=== PATIENT | male | born 1955 | race Caucasian/White ===

== ENCOUNTER 2020-07-21 16:21 | Inpatient (IN) | payer OTHER, MEDICARE, MEDICAID, SELFPAY ==
--- NOTE | ~2020-07-21 | XR_ITS ---
EXAMINATION: XR ABDOMEN KUB CLINICAL INDICATION: Severe constipation. Concern for obstruction. COMPARISON: None TECHNIQUE: AP view of the abdomen. FINDINGS: There is a moderate volume of scattered stool throughout the colon. Most of the stool is in the right colon. No evidence of impaction. No abnormal dilated bowel loop. The bowel pattern is nonobstructive. No radiopaque urinary calculus. XR/XR KUB IMPRESSION: Moderate volume of stool scattered in colon. No bowel obstruction.
[2020-07-21 16:39] VITALS: BP 141/79; PULSE 96; RESP 18; TEMP 36.4; O2SAT 97; BMI 44.0
--- NOTE | 2020-07-21 16:45 | PC.NURSE ---
pt abraham escudero triage. wakes with verbal stimuli
--- NOTE | 2020-07-21 16:58 | PC.NURSE ---
Calling [facility]. nurse on break. will call back
--- NOTE | 2020-07-21 17:25 | ED_ITS ---
HPI - General Adult General Chief complaint: General Medical Stated complaint: CRISIS EVAL Time Seen by Provider: 07/21/20 20:41 Source: patient and EMS Mode of arrival: EMS Limitations: other (Suspected cognitive impairment) History of Present Illness HPI narrative: [age] year male with past medical history anemia, type 2 diabetes, CHF, hypertension, hyperlipidemia, morbid obesity, peripheral vascular disease, schizophrenia, on a [facility] order for psychiatric medications and on Clozaril presents from a long-term facility for refusal of medications. Onset (ago): hour(s) (Within the hour of arrival) Associated symptoms: denies other symptoms Related Data Allergies Allergy/AdvReac Type Severity Reaction Status Date / Time No Known Allergies Allergy Verified 07/21/20 16:39 Review of Systems Review of Systems: Constitutional: No Fever, No Chills ENT/Mouth: No Ear Pain, No Nasal Congestion, No sore throat Eyes: No Eye Pain, No Swelling, No Redness Cardiovascular: No Chest Pain, No SOB Respiratory: No Cough, No Sputum, No Dyspnea Gastrointestinal: No Nausea, No Vomiting, No Diarrhea, No Hematochezia, No Melena Genitourinary: No Dysuria, No Urinary Frequency, No Hematuria Musculoskeletal: No Myalgias Skin: No Skin Lesions, No rash Neuro: No Weakness, No Numbness, No Paresthesias, No Dizziness, No Headache Psych: Refusal of [facility] orders medications, No Anxiety, no Depression, no SI/HI Heme/Lymph: No Lymphadenopathy Endocrine: No Polyuria, No Polydipsia Yes all other systems are reviewed and are negative PMFSH Past Medical History Attestation statement: The following information was validated with the patient. Source: old records reviewed Medical History Anemia Diabetes Heart failure HTN (hypertension) Hyperlipidemia Morbid obesity Peripheral vascular disease Pneumonia Schizophrenia Social History Social History Alcohol intake: unknown Smoked in Last 30 Days: No Use of substances other than those prescribed or required for medical reasons: Unknown Advance Directives: No Advance Directives Information Provided: Yes Physical Exam Vital Signs: Vital Signs: Last Vital Signs Temp 98.7 F 07/21/20 23:43 Pulse 99 07/21/20 22:27 Resp 16 07/21/20 23:43 BP 120/53 L 07/21/20 23:43 Pulse Ox 94 07/21/20 23:43 Body Mass Index 44.0 Appearance: Alert. Oriented to self. No acute distress. Eyes: Pupils equal, round and reactive to light. ENT: Pharynx normal. Neck: Normal inspection. Neck supple. CVS: Normal heart rate and rhythm. Pulses normal. Respiratory: No respiratory distress. Breath sounds normal. Abdomen: Soft and nontender. Morbidly obese. Skin: Skin warm and dry. Normal skin color. Normal skin turgor. Extremities: Positive bilateral lower extremity edema, bilateral knee abrasions scabbed over Neuro: No motor deficit. No sensory deficit. Course Course Course Narrative: 65-year-old male with past medical history of anemia, diabetes, CHF, hypertension, hyperlipidemia, morbid obesity, per vascular disease, schizophrenia on a [facility] order for his psychiatric medications. He was sent to this facility for refusal of taking his meds. Multiple calls out to [facility] facility by RN remain on answered. Patient is a limited historian, is able to answer yes or no questions. Discussion with pharmacist regarding Clozaril, once patient is verified to be on the Clozaril registration psychiatry will send medications. 8:42 p.m. patient still declining p.o. Clozaril. Discussion with pharmacy as well as attending MD, plan is for 20 mg of olanzapine IM. We are all in agreement with this plan. RN discussed with long-term facility, they are unwilling to accept this patient back until he has a psychiatric consult. It also appears that patient d oes not have a backup plan with IM medications for refusal of p.o. medications. Psych consult is pending. Physician observation initiated. 2:21 a.m. sign out to Dr. Luu. Medical Decision Making Differential Diagnosis Differential Diagnosis: Refusal of [facility] order medications Medical Records Medical records reviewed: Yes I reviewed the patient's medical records. Lab Data Lab results reviewed: Yes I reviewed the patient's lab results. Result diagrams: 07/21/20 20:24 07/21/20 20:24 Labs: Lab Results 07/21/20 07/21/20 Range/Units 20:24 20:24 WBC 10.6 (4.8-10.8) X10*3/uL RBC 4.48 L (4.60-5.80) X10*6/uL Hgb 11.5 L (14.0-18.0) g/dl Hct 36.1 L (42-52) % MCV 80.6 (80-98) fL MCH 25.7 L (27.0-33.0) pg MCHC 31.9 (31.0-36.0) g/dl RDW 15.3 (11.0-16.0) % Plt Count 296 (160-400) X10*3/uL MPV 9.9 (9.4-12.4) fL Immature Gran % (Auto) 0.4 (0.0-0.4) % Neut % (Auto) 63.8 (45-73) % Lymph % (Auto) 23.8 (20-40) % [place] % (Auto) 9.3 (2-11) % Eos % (Auto) 2.4 (0-4) % Baso % (Auto) 0.3 (0-2) % Lymph # (Auto) 2.5 (1.2-4.9) X10*3/uL [place] # (Auto) 1.0 (0.1-1.2) X10*3/uL Eos # (Auto) 0.3 (0.0-0.4) X10*3/uL Baso # (Auto) 0.0 (0.0-0.2) X10*3/uL Abs Immat Gran (auto) 0.04 H (0.00-0.03) X10*3/uL Absolute Neuts (auto) 6.7 (2.0-8.3) X10*3/uL Absolute Nucleated RBC 0.000 (0.0-0.012) X10*3/uL Nucleated RBC % (auto) 0.0 (0.0-0.2) /100WBC Sodium 143 (135-145) mmol/L Potassium 3.6 (3.3-5.1) mmol/L Chloride 103 (96-108) mmol/L Carbon Dioxide 29 (22-29) mmol/L Anion Gap 15 (12-20) BUN 21 H (9-16) mg/dL Creatinine 0.93 (0.5-1.4) mg/dL Estim Creat Clear Calc 151.5 Estimated GFR > 60 Random Glucose 145 H (60-115) mg/dL Calcium 8.7 (8.4-10.2) mg/dL
--- NOTE | 2020-07-21 17:44 | PC.NURSE ---
second call to glen. leoone answering on E1.
--- NOTE | 2020-07-21 17:47 | PC.NURSE ---
SNF paperwork states pt takes reg diet with thin liquids. pt states he can't swallow food. unable to reach RN at [facility].
[2020-07-21 18:00] VITALS: BP 144/72; PULSE 105; RESP 20; TEMP 36.3; O2SAT 99
--- NOTE | 2020-07-21 18:28 | PC.NURSE ---
pt eating and drinking w/o diff.
[2020-07-21 20:00] VITALS: BP 122/68; PULSE 109; RESP 20; TEMP 36.4; O2SAT 96
--- NOTE | 2020-07-21 20:19 | PC.NURSE ---
pT IS REFUSING CLOZARIL. STATES HIS MOUTH IS TOO DRY. THIS RN EXPLAINING THAT PT IS MAKE UP EXCUSES, THAT I WITNESSED HIM DRINK MILK AND EAT DINNER. PT CONTINUES TO REFUSE. THIS RN REMINDING PATIENT THAT AFTER HE TAKES MEDS HE'LL RETURN TO FACILITY. STATES HE'LL STAY HERE AND ROT
[2020-07-21 20:30] LABS: MANUAL DIFF FLAG NO
[2020-07-21 20:37] LABS: Basophils Percent Auto 0.3 % (0-2); Eosinophils Absolute Auto 0.3 X10*3/uL (0.0-0.4); Eosinophils Percent Auto 2.4 % (0-4); Hematocrit 36.1 % (42-52); Hemoglobin 11.5 g/dl (14.0-18.0); Imm Gran Abs Auto 0.04 X10*3/uL (0.00-0.03); Imm Gran Pct Auto 0.4 % (0.0-0.4); Lymphocytes Absolute Auto 2.5 X10*3/uL (1.2-4.9); Lymphocytes Percent Auto 23.8 % (20-40); Mean Corpuscular HGB Conc 31.9 g/dl (31.0-36.0); Mean Corpuscular Hemoglobin 25.7 pg (27.0-33.0); Mean Corpuscular Volume 80.6 fL (80-98); Mean Platelet Volume 9.9 fL (9.4-12.4); Monocytes Percent Auto 9.3 % (2-11); Neutrophils Absolute Auto 6.7 X10*3/uL (2.0-8.3); Neutrophils Percent Auto 63.8 % (45-73); Platelet Count 296 X10*3/uL (160-400); Red Blood Count 4.48 X10*6/uL (4.60-5.80); Red Cell Distribution Width 15.3 % (11.0-16.0); White Blood Count 10.6 X10*3/uL (4.8-10.8)
[2020-07-21 21:10] VITALS: BP 121/70; RESP 16; TEMP 36.6; O2SAT 97
[2020-07-21 21:18] LABS: Anion Gap 15 (12-20); Blood Urea Nitrogen 21 mg/dL (9-16); Calcium 8.7 mg/dL (8.4-10.2); Carbon Dioxide 29 mmol/L (22-29); Chloride 103 mmol/L (96-108); Creatinine Clr Calc Pharmacy 151.5; Estimated Glomerular Filt Rate > 60; Glucose Random 145 mg/dL (60-115); Potassium 3.6 mmol/L (3.3-5.1); Sodium 143 mmol/L (135-145)
[2020-07-21] MEDS: OLANZapine 10 MG VIAL IM ×2 (22:09)
[2020-07-21 22:27] VITALS: BP 120/67; PULSE 99; RESP 18; TEMP 36.6; O2SAT 96
--- NOTE | 2020-07-21 22:28 | PC.NURSE ---
OLAZEPINE IM WAS ADMINISTERED IN [facility] OF CLOZARILE 600MG PO. PT REFUSED PO MEDS AND OLAZAPINE WAS GIVEN A SUSTITUTE FOR THIS ROUTINE MEDICATION. PT WAS BEHAVIORALLY CONTROLLED AND WHEN GIVEN ONE LAST CHANCE TO CHOOSE PO MEDS VS IM, REQUESTED THE IM.
--- NOTE | 2020-07-21 22:34 | PC.NURSE ---
This RN calling Talat. noone answering again.
--- NOTE | 2020-07-21 22:56 | PC.NURSE ---
Finally speaking with MEGHAN Blum at [facility]. Pt's brief is still dry. Is awake, following commands. Having ice. Viktoria states that [facility] is under the impression that patient was sectioned to the ED and therefore cannot return until a hydro generation supervisor is consulted in the AM.
[2020-07-21 23:43] VITALS: BP 120/53; RESP 16; TEMP 37.1; O2SAT 94
--- NOTE | 2020-07-22 | ECG_ITS ---
Test Reason : PSYCHMEDS Blood Pressure : / mmHG Vent. Rate : 095 BPM Atrial Rate : 095 BPM P-R Int : 138 ms QRS Dur : 086 ms QT Int : 360 ms P-R-T Axes : 084 023 094 degrees QTc Int : 452 ms Normal sinus rhythm Inferior infarct (cited on or before 17-APR-2017) Abnormal ECG When compared with ECG of 17-APR-2017 16:41, No significant change was found Referred By: Hannah Cade Electronically Signed By:GIOVANI DC MD
[2020-07-22 08:48] VITALS: BP 150/81; PULSE 100; RESP 18; O2SAT 98
--- NOTE | 2020-07-22 08:51 | PC.NURSE ---
Pt sleeping, awakes easily. Vague with flat affect. Vitals stable. Refused breakfast. Confirms not taking meds but does not offer an explanation. Denies SI or HI. Made aware that pt is awaiting psych consult this morning for medication management. Pt is alert and oriented to self,place and year. Pt is calm and cooperative.
[2020-07-22 11:43] VITALS: BP 160/73; PULSE 89; RESP 17; TEMP 36.6; O2SAT 96
--- NOTE | 2020-07-22 11:49 | PC.NURSE ---
M5 called and made aware of psych consult needed. Pt remains asleep at this time but easily awakes.
--- NOTE | 2020-07-22 14:40 | PM.PSYCN ---
History of Present Illness Date of Service: 07/22/2020 Chief Complaint: CRISIS EVAL Reason for Consult: decompensation Discussed with referring provider: Yes Sources of Information: patient interviewed and chart reviewed Additional Sources of Information: [facility] [facility]- Malina (rn case manager) [phone] Duc Zambrano- HCP/Brother [phone] HPI Narrative: Mr. Zambrano is a 65 year-old male with hx of schizoaffective disorder. He was brought via EMS from [facility] where he was recently admitted for short term rehab due to pt presenting increasingly more combative and refusing antipsychotic- clozaril which is court mandated per Jesse's order (expires on 10/2020 on pt's chart). Most information is gathered from collateral sources including his brother Duc (HCP) and staff at [facility] where he has resided for the past 4 years. Mr. Zambrano is laying in bed, significant bilateral involuntary movements of upper extremities as well as perioral movements are evident. Otherwise, Pt appears somewhat anxious and guarded. Mr. Zambrano reports that he is not sure why is was brought to the hospital. When asked about changes in behaviors and declining court mandated medication- clozaril, pt confirms that he does not want to take. He denies any side effects. However, pt is unable to explain as to why he, abruptly decided to stop it. When asked about AH/VH, pt denies. However, pt presents with significant delayed response rate, scanning room and poor attention which suggest that he is in fact internally preoccupied. He denies SI/HI. He reports sleeping and eating well. He does report constipation but unable to state when was his last BM. He does report some abdominal discomfort. Per brother, Duc, pt has been fairly stable psychiatrically speaking up until last April- May. Duc reports that pt has presented as increasingly more confused, withdrawn. He also has had multiple falls. Involuntary movements have increased recently as well. Duc reports pt has been on clozaril for several years. Brother also suspects that reason for declining clozaril is because AH are telling him not to take it. Brother reports that pt usually may not report AH, but he has disclosed to his brother that this in part is reason for refusing clozaril. Pt is currently on Fernandez that includes as alternative antipsychotics- seroquel and risperidone. Note that there is no back up IM in the event of pt refusing clozaril. However, brother reports that pt may take medication if given with apple sauce and some encouragement to take it while eating meals. Staff from [facility]- Malina (rn case manager) reports that pt has been presenting increasingly more confused, agitated at times for the past 2-3 weeks. He has been in ED at [facility] in the past two weeks as they were concerned about underlying medical conditions affecting his mental status. Malina reports that is not usual for pt to decline medications, only usually as AH increase. As of today, it has been about 5 days that pt has decline clozaril. In the ED, pt continues to decline taking clozaril. Past Psychiatric History: Inpatient: [facility]- more than 7 years ago. OP: [facility] Pt currently resides in [facility] for past 4 years. Medication trials: clozaril, seroquel, risperidone. Medical Evaluation Reviewed: Yes Review of Systems Gastrointestinal: Reports abdominal pain and Reports constipation [facility] Medical History Anemia Diabetes Heart failure HTN (hypertension) Hyperlipidemia Morbid obesity Peripheral vascular disease Pneumonia Schizophrenia Diagnostics Vital Signs (24Hr): Vital Signs - 24 hr 07/21/20 16:39 07/21/20 18:00 07/21/20 20:00 Temperature 97.6 F 97.4 F 97.6 F Pulse Rate 96 105 H 109 H Respiratory Rate 18 20 20 Blood Pressure 141/79 H 144/72 H 122/68 Pulse Oximetry 97 99 96 07/21/20 21:10 07/21/20 22:27 07/21/20 23:43 Temperature 97.9 F 97.8 F 98.7 F Pulse Rate 99 Respiratory Rate 16 18 16 Blood Pressure 121/70 120/67 120/53 L Pulse Oximetry 97 96 94 07/22/20 08:48 07/22/20 11:43 Temperature 97.8 F Pulse Rate 100 89 Respiratory Rate 18 17 Blood Pressure 150/81 H 160/73 H Pulse Oximetry 98 96 Body Mass Index 44.0 Labs Results: 07/21/20 20:24 07/21/20 20:24 Labs: Laboratory Results - last 48 hr 07/21/20 07/21/20 20:24 20:24 WBC 10.6 RBC 4.48 L Hgb 11.5 L Hct 36.1 L MCV 80.6 MCH 25.7 L MCHC 31.9 RDW 15.3 Plt Count 296 MPV 9.9 Immature Gran % (Auto) 0.4 Neut % (Auto) 63.8 Lymph % (Auto) 23.8 [place] % (Auto) 9.3 Eos % (Auto) 2.4 Baso % (Auto) 0.3 Lymph # (Auto) 2.5 [place] # (Auto) 1.0 Eos # (Auto) 0.3 Baso # (Auto) 0.0 Abs Immat Gran (auto) 0.04 H Absolute Neuts (auto) 6.7 Absolute Nucleated RBC 0.000 Nucleated RBC % (auto) 0.0 Sodium 143 Potassium 3.6 Chloride 103 Carbon Dioxide 29 Anion Gap 15 BUN 21 H Creatinine 0.93 Estim Creat Clear Calc 151.5 Estimated GFR > 60 Random Glucose 145 H Calcium 8.7 Mental Status Exam Mental Status Exam Narrative: Appearance: MO male, disheveled, involuntary upper extremity movements, restless Behavior: restless, guarded Psychomotor: significant involuntary bilateral upper extremity movement Speech: mumbles at times, significant delayed response rate, soft tone, minimally spontaneous TP: single work answers TC:poverty of thought Mood: okay Affect:restless, anxious SI:denies HI:denies AH/VH:appears internally preoccupied Delusions:guarded Insight/judgment:impaired Memory/cog: alert, oriented to month, year not to situation nor place. Medications Allergies Allergies Allergy/AdvReac Type Severity Reaction Status Date / Time No Known Allergies Allergy Verified 07/21/20 16:39 Assessment & Plan Assessment & Plan (1) Schizophrenia, paranoid, subchronic with acute exacerbation: Status: Acute Code(s): F20.0 - Paranoid schizophrenia Recommendations: 1. Pt may benefit from inpatient psychiatric level of care to re-start and titrate up clozaril- monitoring potential side effects such as orthostatic HOTN, constipation 2. Pt currently declining oral clozaril- on fernandez that does not include back up IM. Other alternative medication on current fernandez include seroquel and risperidone. Greater than 50% of the session was spent on counseling and/or coordination of care
--- NOTE | 2020-07-22 14:50 | PC.NURSE ---
Psych down to evaluate pt. Bladder scan 116ml as pt hasnt voided, after bladder scan pt incontinent of large amt of urine on floor. Refusing lunch.
--- NOTE | 2020-07-22 16:41 | PC.NURSE ---
Pt not eating meals offered despite much encouragement, this RN offering fluids and pt accepted.
[2020-07-22 17:08] VITALS: BP 141/75; PULSE 92; RESP 20; TEMP 36.9; O2SAT 97
--- NOTE | 2020-07-22 18:11 | PC.NURSE ---
Addendum entered by Kavita Khan 07/22/20 18:12: Crisis order placed Original Note: Per psych pt reports constipation, to and from xray for KUB. ?admission for titration back on Clozaril.
--- NOTE | 2020-07-22 18:39 | PC.NURSE ---
faxed to [facility], this RN calling at this time
--- NOTE | 2020-07-22 18:49 | PC.NURSE ---
Sinus Rhythm noted on monitor, tigerconnect to Dr Doss for update
[2020-07-23] VITALS (8 sets, daily range): BP systolic 138; BP diastolic 72; PULSE 89–92; RESP 16–20; TEMP 36.3–37.4; O2SAT 95
[2020-07-23 09:47] LABS: COVID-19 Test Negative (Negative); IDNOW Serial# 9DD0AD1C
--- NOTE | 2020-07-23 10:46 | PC.NURSE ---
pt alert and oreinted, calm and cooperative. seen by N this morning to discuss possible plan for disposition.
--- NOTE | 2020-07-23 11:18 | MHC.CARE ---
Patient's evaluation completed by CARE team. Inpatient psychiatric treatment is recommended.
--- NOTE | 2020-07-23 12:23 | PC.NURSE ---
PT SLEEPING, EASILY ROUSED. REFUSED VS AT THIS TIME. APPEARS COMFORTABLE, RESP EVEN, NONLABOURED.
--- NOTE | 2020-07-23 15:18 | PC.NURSE ---
PT HAS NOT EATEN BREAKFAST OR LUNCH TODAY. HE DENIES ANY NAUSEA, PAIN. PRESENTS WITH A FLAT AFFECT, SLEEPING MOST OF THE DAY TODAY. WILL REATTEMPT TO APPROACH WITH DINNER, PT AGREES WITH PLAN AND UNDERSTANDS IMPORTANCE OF NOURISHMENT
--- NOTE | 2020-07-23 16:43 | PC.NURSE ---
Addendum entered by Tatiana Scales RN 07/23/20 16:49: [phone] - NATHALIE IS GIFTED PROGRAM TEACHER FOR Andel. [phone] MARTHA BROTHER Original Note: PER HCP BROTHER, PT IS Andel UVALDE, [employer]ACE [employer] FOR ALL INCLUSIVE CARE FOR ELDERLY.
--- NOTE | 2020-07-23 17:35 | MHC.SL.SWA ---
Speech Pathologist Impression: Risk of Aspiration Due to: Dysphasia Diet Status: Downgrade Liquid Consistency and Strategies for Safe Swallow: Liquid Intake Recommendation: Thin Liquid Intake Strategies: Unrestricted Solid Food Consistency: Dietary Recommendations: Additional Modifications to Solid Foods: MATERIAL CUTTER will re-evaluate in the morning to determine safe solid consistency recommendation, as pt refused today. Pt stated that he would participate in the morning. Oral Medication Intake: Compensatory Strategies and Precautions to be Taken for Safe Swallow: Sitting Upright (90 deg) Supervision While Eating and Drinking for Safe Swallow: Intermittent Supervision Foods to Avoid: Swallowing Recommended Treatments: Recommendation for Speech: Inpatient Speech Therapy Comment: Frequency/Duration: Date Range for Service Req: Timeline to reassess: Radiopharmacist Clinican/Clinical Fellow: Yes: Ashley Spears M.A., [facility]-MATERIAL CUTTER Supervisory Statement: I have reviewed and agree with the student/clinical fellow's documentation: Speech Language Pathologist:
--- NOTE | 2020-07-23 17:42 | PC.NURSE ---
SPEECH PATHOLOGY AT BEDSIDE, PT TOELRATED SEVERAL ORANGE JUICES. PT REPORTS HEARING VOICES THAT ARE TELLING HIM TO DRINK FLUIDS. PA MARCOS MADE AWARE OF EVAL & PT CONTINUATION TO REFUSE MEALS. MEDS ENTERED, CLOZARIL TO START AT 25MG SINCE HE HAS NOT TAKEN IT FOR SEVERAL DAYS NOW.
[2020-07-23] MEDS: cloZAPine 25 MG TABLET PO (18:36)
[2020-07-23] MEDS: Tamsulosin HCL 0.4 MG CAPSULE PO (18:37)
[2020-07-23] MEDS: Magnesium Oxide 400 MG TABLET 800 MG PO (18:37)
[2020-07-23] MEDS: Metoprolol Succinate ER 25 MG TAB.ER.24H 75 MG PO (18:37)
[2020-07-23] MEDS: Finasteride 5 MG TABLET PO (18:38)
[2020-07-23] MEDS: Clopidogrel Bisulfate 75 MG TABLET PO (18:38)
[2020-07-23] MEDS: lisinopriL 2.5 MG TABLET PO (18:38)
--- NOTE | 2020-07-23 19:32 | PC.NURSE ---
LINENS CHANGED, PT BATHED IN BED. TOOK ALL MEDS WITH ORANGE JUICE, DRANK AN ICED WATER. PT MAKING EYE CONTACT, RESPONDING TO YES OR NO QUESTIONS. CALM & COOPERATIVE.
--- NOTE | 2020-07-23 20:46 | PC.NURSE ---
ATTEMPTED TO TRIAL AMBULATION WITH THIS PT, HE REFUSED TO GET OOB A FEW TIMES I'M GONNA FALL, I THINK I'M JUST GONNA FALL . PT REPOSITIONS SELF IN BED WITH NO ISSUE. AFTER SEVERAL ATTEMPTS, PT AGREED TO STAND. HE STOOD HOLDING ONTO THE CART IN THE ROOM, ABLE TO BEAR HIS OWN WT. UPDATED M5.
--- NOTE | 2020-07-23 22:47 | MHC.CARE ---
CARE team unable to locate pt's belongings in the ED prior to M5 admission. No belongings sheet found in pt's physical chart.
--- NOTE | 2020-07-24 02:15 | PC.ADMIT ---
Juan is 65 years old, calm and cooperative. He denies any substance use for many, many years . He denies SI and HI. He is oriented to person only and needs reinforcement to day, time and place. He had a fall prior to admission; as a result his right knee has an abrasion; his right foot, 1st and 2nd toes have bruising and scabs, 2nd toe has long curved toenail. His left foot, 1st and 2nd toes have bruising and scabs. He is fearful of falls. fearful to walk. He can stand and pivot. Tries to bear hug staff when he stands. Groin and testes are red. difficult to asses d/t size. He has no clothing and needs his own brought in. He is a very large man and hospital bariatric johnnys are too small, and he needs a bariatric wheelchair and gait belt. We need a copy of his [facility] Order. Juan is on 1:1 observation at this time.
--- NOTE | 2020-07-24 04:49 | PC.NURSE ---
0145: Pt sat up on the side of his bed then proceeded to lower himself to the floor on his knees. Redirected to get back into bed to which pt complied. Pt reopened a scabbed over area on his knee.
[2020-07-24 06:00] VITALS: BP 96/55; PULSE 87; RESP 20; TEMP 36.6; O2SAT 93
[2020-07-24 06:36] LABS: Glucose, Whole Blood 116 mg/dL (60-115)
[2020-07-24 08:28] LABS: MANUAL DIFF FLAG NO
[2020-07-24 08:32] LABS: Basophils Percent Auto 0.3 % (0-2); Eosinophils Absolute Auto 0.2 X10*3/uL (0.0-0.4); Eosinophils Percent Auto 1.9 % (0-4); Hematocrit 36.5 % (42-52); Hemoglobin 11.5 g/dl (14.0-18.0); Imm Gran Abs Auto 0.02 X10*3/uL (0.00-0.03); Imm Gran Pct Auto 0.2 % (0.0-0.4); Lymphocytes Absolute Auto 1.9 X10*3/uL (1.2-4.9); Lymphocytes Percent Auto 20.6 % (20-40); Mean Corpuscular HGB Conc 31.5 g/dl (31.0-36.0); Mean Corpuscular Hemoglobin 25.3 pg (27.0-33.0); Mean Corpuscular Volume 80.4 fL (80-98); Mean Platelet Volume 9.7 fL (9.4-12.4); Monocytes Absolute Auto 0.8 X10*3/uL (0.1-1.2); Monocytes Percent Auto 8.8 % (2-11); Neutrophils Absolute Auto 6.4 X10*3/uL (2.0-8.3); Neutrophils Percent Auto 68.2 % (45-73); Platelet Count 306 X10*3/uL (160-400); Red Blood Count 4.54 X10*6/uL (4.60-5.80); Red Cell Distribution Width 15.1 % (11.0-16.0); White Blood Count 9.4 X10*3/uL (4.8-10.8)
[2020-07-24 09:00] LABS: Alanine Aminotransferase 21 U/L (0-40); Albumin Level 3.3 g/dL (3.5-5.0); Alkaline Phosphatase 60 U/L (39-117); Anion Gap 13 (12-20); Aspartate Amino Transferase 24 U/L (5-37); Bilirubin Direct 0.3 mg/dL (0.0-0.5); Bilirubin Total 0.8 mg/dL (0.0-1.0); Blood Urea Nitrogen 10 mg/dL (9-16); Calcium 8.7 mg/dL (8.4-10.2); Carbon Dioxide 28 mmol/L (22-29); Chloride 103 mmol/L (96-108); Cholesterol 157 mg/dL; Creatinine Clr Calc Pharmacy 190.4; Estimated Glomerular Filt Rate > 60; Glucose Fasting 119 mg/dL (60-99); HDL Cholesterol 31 mg/dL; LDL Cholesterol Calculated 106 mg/dl; Magnesium 1.8 mg/dL (1.6-2.6); Potassium 3.9 mmol/L (3.3-5.1); Sodium 140 mmol/L (135-145); Total Protein 5.9 g/dL (6.5-8.0); Triglycerides 103 mg/dL
[2020-07-24 09:04] LABS: Estimated Average Glucose 151 mg/dL; Hemoglobin A1c % 6.9 %
[2020-07-24 09:32] LABS: Folate 7.1 ng/mL (> or = 4.0); Vitamin B12 376 pg/mL (200-900)
[2020-07-24 09:49] VITALS: BP 109/60; PULSE 103; RESP 18; TEMP 36.9; O2SAT 95
[2020-07-24 09:55] VITALS: BP 109/60; PULSE 103
[2020-07-24] MEDS: Magnesium Oxide 400 MG TABLET 800 MG PO (09:55)
[2020-07-24] MEDS: lisinopriL 2.5 MG TABLET PO (09:55)
[2020-07-24 09:56] VITALS: BP 109/60; PULSE 103
[2020-07-24] MEDS: Metoprolol Succinate ER 25 MG TAB.ER.24H 75 MG PO (09:56)
[2020-07-24] MEDS: metFORMIN HCl 1,000 MG TABLET 1000 MG PO ×2 (09:57→15:55)
[2020-07-24] MEDS: Acetaminophen 325 MG TABLET 650 MG PO (09:57)
[2020-07-24] MEDS: Clopidogrel Bisulfate 75 MG TABLET PO (09:58)
[2020-07-24] MEDS: Furosemide 40 MG TABLET PO (09:58)
[2020-07-24] MEDS: Omeprazole 20 MG CAPSULE.DR PO (09:58)
[2020-07-24] MEDS: Finasteride 5 MG TABLET PO (09:58)
[2020-07-24] MEDS: Tamsulosin HCL 0.4 MG CAPSULE PO (09:58)
--- NOTE | 2020-07-24 11:34 | MHC.SL.SWA ---
Speech Pathologist Impression: Dysphasia Diet Status: Upgrade Liquid Consistency and Strategies for Safe Swallow: Liquid Intake Recommendation: Thin Liquid Intake Strategies: Unrestricted Solid Food Consistency: Dietary Recommendations: Regular Additional Modifications to Solid Foods: Recommend food with sauce/gravy to ease mastication. Oral Medication Intake: Whole with Liquid Compensatory Strategies and Precautions to be Taken for Safe Swallow: Sitting Upright (90 deg) Small Bites and Sips Alternate Liquids/Solids Rate of Ingestion Change Supervision While Eating and Drinking for Safe Swallow: Intermittent Supervision Comment: Patient passed bedside dysphagia evaluation. Further ST intervention no longer warranted. Please re-refer if there are any changes or if [employer] can be of further assistance. Soaking Room Operator Clinican/Clinical Fellow: No Supervisory Statement: I have reviewed and agree with the student/clinical fellow's documentation: N/A Speech Language Pathologist: Aliza Mujica M.A., [facility]-[employer]
--- NOTE | 2020-07-24 13:06 | MHC.SLORD ---
Speech Language Pathology Order Status: Bedside Dysphagia Evaluation 07/23/20 reviewed and signed by supervising clinician Aliza Mujica M.A., CCC-DIAGRAMMER.
[2020-07-24] MEDS: Loperamide HCl 2 MG CAPSULE PO (15:54)
[2020-07-24] MEDS: Furosemide 20 MG TABLET PO (15:55)
[2020-07-24 16:17] LABS: Glucose, Whole Blood 105 mg/dL (60-115)
--- NOTE | 2020-07-24 18:32 | P.HPPS_ITS ---
HPI Chief Complaint: psychosis Sources of Information: patient interviewed, chart reviewed and crisis/core team assessment reviewed HPI Subjective Notes: Billings Order and Conditional Voluntary Guardianship: Yes Narrative: Mr. Zambrano is a 65 year-old male with hx of schizoaffective disorder. He was brought via EMS from [facility] where he was recently admitted for short term rehab due to pt presenting increasingly more combative and refusing antipsychotic- clozaril which is court mandated per Jesse's order (expires on 10/2020 on pt's chart). Most information is gathered from collateral sources including his brother Duc (HCP) and staff at [facility] where he has resided for the past 4 years. Mr. Zambrano is laying in bed, significant bilateral involuntary movements of upper extremities as well as perioral movements are evident. Otherwise, Pt appears somewhat anxious and guarded. Mr. Zambrano reports that he is not sure why is was brought to the hospital. When asked about changes in behaviors and declining court mandated medication- clozaril, pt confirms that he does not want to take. He denies any side effects. However, pt is unable to explain as to why he, abruptly decided to stop it. Today, pt does report hearing voices telling him to hurt himself. He also reports that voices are telling him to exercise, go swimming . Pt presents with significant delayed response rate, scanning room and poor attention which suggest that he is in fact internally preoccupied. He denies SI/HI. He reports sleeping and eating well. He had reported constipation, had KUB in ED- no obstruction. He did have loose stools in unit. Per brother, Duc, pt has been fairly stable psychiatrically speaking up until last April- May. Duc reports that pt has presented as increasingly more confused, withdrawn. He also has had multiple falls. Involuntary movements have increased recently as well. Duc reports pt has been on clozaril for several years. Brother also suspects that reason for declining clozaril is because AH a re telling him not to take it. Brother reports that pt usually may not report AH, but he has disclosed to his brother that this in part is reason for refusing clozaril. Pt is currently on Billings that includes as alternative antipsychotics- seroquel and risperidone. Note that there is no back up IM in the event of pt refusing clozaril. However, brother reports that pt may take medication if given with apple sauce and some encouragement to take it while eating meals. Staff from [facility]- Malina (case supervisor) reports that pt has been presenting increasingly more confused, agitated at times for the past 2-3 weeks. He has been in ED at [facility] two in the past two weeks as they were concerned about underlying medical conditions affecting his mental status. Malina reports that is not usual for pt to decline medications, only usually as AH increase. Past Psychiatric History: Inpatient: [facility]- more than 7 years ago. OP: [facility] Pt currently resides in [facility] for past 4 years. Medication trials: clozaril, seroquel, risperidone. Medical Evaluation Reviewed: Yes [facility] Medical History (Updated 07/25/20 @ 13:15 by Hannah Cade) Anemia Diabetes Heart failure HTN (hypertension) Hyperlipidemia Morbid obesity Peripheral vascular disease Pneumonia Schizophrenia Diagnostics Vital Signs (24Hr): Vital Signs - 24 hr 07/23/20 18:35 07/23/20 18:37 07/23/20 18:38 Temperature 97.3 F Pulse Rate 92 89 89 Respiratory Rate 18 Blood Pressure 138/72 138/72 138/72 Pulse Oximetry 95 07/24/20 06:00 07/24/20 09:49 07/24/20 09:55 Temperature 97.8 F 98.4 F Pulse Rate 87 103 H 103 H Respiratory Rate 20 18 Blood Pressure 96/55 L 109/60 109/60 Pulse Oximetry 93 95 07/24/20 09:56 Temperature Pulse Rate 103 H Respiratory Rate Blood Pressure 109/60 Pulse Oximetry Body Mass Index 44.0 Labs Results: 07/24/20 08:06 07/24/20 08:06 Labs: Laboratory Results - last 48 hr 07/23/20 07/24/20 07/24/20 09:28 06:30 08:06 WBC 9.4 RBC 4.54 L Hgb 11.5 L Hct 36.5 L MCV 80.4 MCH 25.3 L MCHC 31.5 RDW 15.1 Plt Count 306 MPV 9.7 Immature Gran % (Auto) 0.2 Neut % (Auto) 68.2 Lymph % (Auto) 20.6 Norton % (Auto) 8.8 Eos % (Auto) 1.9 Baso % (Auto) 0.3 Lymph # (Auto) 1.9 Norton # (Auto) 0.8 Eos # (Auto) 0.2 Baso # (Auto) 0.0 Abs Immat Gran (auto) 0.02 Absolute Neuts (auto) 6.4 Absolute Nucleated RBC 0.000 Nucleated RBC % (auto) 0.0 Sodium Potassium Chloride Carbon Dioxide Anion Gap BUN Creatinine Estim Creat Clear Calc Estimated GFR POC Glucose 116 H Fasting Glucose Estimat Average Glucose Hemoglobin A1c % Calcium Magnesium Total Bilirubin Direct Bilirubin AST ALT Alkaline Phosphatase Total Protein Albumin Triglycerides Cholesterol LDL Cholesterol, Calc HDL Cholesterol Vitamin B12 Folate COVID-19 (DEONTE) Negative COVID-19 Clin Com See Note 07/24/20 07/24/20 07/24/20 08:06 08:06 08:06 WBC RBC Hgb Hct MCV MCH MCHC RDW Plt Count MPV Immature Gran % (Auto) Neut % (Auto) Lymph % (Auto) Norton % (Auto) Eos % (Auto) Baso % (Auto) Lymph # (Auto) Norton # (Auto) Eos # (Auto) Baso # (Auto) Abs Immat Gran (auto) Absolute Neuts (auto) Absolute Nucleated RBC Nucleated RBC % (auto) Sodium 140 Potassium 3.9 Chloride 103 Carbon Dioxide 28 Anion Gap 13 BUN 10 D Creatinine 0.74 Estim Creat Clear Calc 190.4 Estimated GFR > 60 POC Glucose Fasting Glucose 119 H Estimat Average Glucose 151 Hemoglobin A1c % 6.9 Calcium 8.7 Magnesium 1.8 Total Bilirubin 0.8 Direct Bilirubin 0.3 AST 24 ALT 21 Alkaline Phosphatase 60 Total Protein 5.9 L Albumin 3.3 L Triglycerides 103 Cholesterol 157 LDL Cholesterol, Calc 106 HDL Cholesterol 31 Vitamin B12 376 Folate 7.1 COVID-19 (DEONTE) COVID-19 [employer] Com 07/24/20 16:09 WBC RBC Hgb Hct MCV MCH MCHC RDW Plt Count MPV Immature Gran % (Auto) Neut % (Auto) Lymph % (Auto) Norton % (Auto) Eos % (Auto) Baso % (Auto) Lymph # (Auto) Norton # (Auto) Eos # (Auto) Baso # (Auto) Abs Immat Gran (auto) Absolute Neuts (auto) Absolute Nucleated RBC Nucleated RBC % (auto) Sodium Potassium Chloride Carbon Dioxide Anion Gap BUN Creatinine Estim Creat Clear Calc Estimated GFR POC Glucose 105 Fasting Glucose Estimat Average Glucose Hemoglobin A1c % Calcium Magnesium Total Bilirubin Direct Bilirubin AST ALT Alkaline Phosphatase Total Protein Albumin Triglycerides Cholesterol LDL Cholesterol, Calc HDL Cholesterol Vitamin B12 Folate COVID-19 (DEONTE) COVID-19 Clin Com Imaging Radiology Impressions: ITS Impressions KUB X-Ray 07/22/20 17:13 IMPRESSION: Moderate volume of stool scattered in colon. No bowel obstruction. Meds/Allergies Meds Home Medications Acetaminophen (Acetaminophen 325 Mg Tablet) 650 mg PO Q6H PRN PRN Reason: Headache/Pain Mild Scale (1-3) Last Admin: 07/24/20 09:57 Dose: 650 mg Documented by: Al Hydroxide/Mg Hydroxide (Magnesium Hydrox/Alum Hydrox 30 Ml Oral.Susp) 30 ml PO Q6H PRN PRN Reason: Heartburn/Nausea Aspirin (Aspirin Enteric Coated 81 Mg Tablet.) 81 mg PO DAILY [facility] Last Admin: 07/25/20 09:02 Dose: 81 mg Documented by: Atorvastatin Calcium (Atorvastatin Calcium 80 Mg Tablet) 80 mg PO BEDTIME [facility] Last Admin: 07/24/20 23:44 Dose: Not Given Documented by: Clopidogrel Bisulfate (Clopidogrel Bisulfate 75 Mg Tablet) 75 mg PO DAILY [facility] Last Admin: 07/25/20 09:02 Dose: 75 mg Documented by: Clozapine (Clozapine 25 Mg Tablet) 25 mg PO BEDTIME [facility] Last Admin: 07/24/20 19:38 Dose: Not Given Documented by: Docusate Sodium (Docusate Sodium 100 Mg Capsule) 100 mg PO BEDTIME [facility] Last Admin: 07/24/20 23:45 Dose: Not Given Documented by: Finasteride (Finasteride 5 Mg Tablet) 5 mg PO DAILY [facility] Last Admin: 07/24/20 09:58 Dose: 5 mg Documented by: Furosemide (Furosemide 20 Mg Tablet) 20 mg PO BIDWM [facility]; Protocol Last Admin: 07/25/20 09:02 Dose: 20 mg Documented by: Hydroxyzine HCl (Hydroxyzine Hcl 25 Mg Tablet) 25 mg PO BEDTIME PRN PRN Reason: Anxiety Lisinopril (Lisinopril 2.5 Mg Tablet) 2.5 mg PO DAILY [facility]; Protocol Last Admin: 07/25/20 09:02 Dose: 2.5 mg Documented by: Loperamide HCl (Loperamide Hcl 2 Mg Capsule) 2 mg PO Q4H PRN PRN Reason: Diarrhea Last Admin: 07/24/20 15:54 Dose: 2 mg Documented by: Magnesium Hydroxide (Milk Of Magnesia 30 Ml Oral.Susp) 30 ml PO DAILY PRN PRN Reason: Constipation Metformin HCl (Metformin Hcl 1,000 Mg Tablet) 1,000 mg PO BIDWM [facility] Last Admin: 07/25/20 09:02 Dose: 1,000 mg Documented by: Metoprolol Succinate (Metoprolol Succinate Er 25 Mg Tab.Er.24h) 75 mg PO DAILY [facility]; Protocol Last Admin: 07/25/20 09:01 Dose: 75 mg Documented by: Multi-Ingred Cream/Lotion/Oil/Oint (Mineral Oil/Petrolatum,White 106 Gm Tube) 1 appl TOPICAL BID [facility] Last Admin: 07/24/20 19:39 Dose: Not Given Documented by: Omeprazole (Omeprazole 20 Mg Capsule.Dr) 20 mg PO DAILY@0630 [facility] Last Admin: 07/25/20 09:01 Dose: 20 mg Documented by: Tamsulosin HCl (Tamsulosin Hcl 0.4 Mg Capsule) 0.4 mg PO BEDTIME [facility] Trazodone HCl (Trazodone Hcl 50 Mg Tablet) 50 mg PO BEDTIME PRN PRN Reason: Insomnia Vitamin D (Cholecalciferol (Vitamin D3) 25 Mcg Tablet) 50 mcg PO BEDTIME [facility] Last Admin: 07/24/20 23:45 Dose: Not Given Documented by: Allergies Allergies Allergy/AdvReac Type Severity Reaction Status Date / Time No Known Allergies Allergy Verified 07/21/20 16:39 Mental Status Exam Mental Status Exam Narrative: Appearance: MO male, disheveled, involuntary upper extremity movem ents, restless Behavior: restless, guarded Psychomotor: significant involuntary bilateral upper extremity movement Speech: mumbles at times, significant delayed response rate, soft tone, minimally spontaneous TP: single work answers TC:poverty of thought Mood: okay Affect:restless, anxious SI:denies HI:denies AH/VH:appears internally preoccupied Delusions:guarded Insight/judgment:impaired Memory/cog: alert, oriented to month, year not to situation nor place. Assessment & Plan Assessment & Plan (1) Schizophrenia, paranoid, subchronic with acute exacerbation: Status: Acute Code(s): F20.0 - Paranoid schizophrenia Assessment and Plan: restart clozaril may need to amend jesse's to include antipsychotic with IM formulation as he is refusing oral clozaril. (2) Hyperlipidemia: Status: Acute Code(s): E78.5 - Hyperlipidemia, unspecified (3) Peripheral vascular disease: Status: Acute Code(s): I73.9 - Peripheral vascular disease, unspecified (4) Heart failure: Status: Acute Code(s): I50.9 - Heart failure, unspecified Assessment and Plan: continues current medications (5) HTN (hypertension): Status: Acute Code(s): I10 - Essential (primary) hypertension Assessment and Plan: continue current medications Reason for continued inpatient stay Substantial Risk for: inability to function
[2020-07-24 20:42] LABS: Glucose, Whole Blood 89 mg/dL (60-115)
[2020-07-25 06:00] VITALS: BP 128/82; PULSE 107; RESP 22; TEMP 36.4; O2SAT 97
[2020-07-25 06:54] LABS: Glucose, Whole Blood 110 mg/dL (60-115)
[2020-07-25 09:01] VITALS: BP 123/68; PULSE 92
[2020-07-25] MEDS: Metoprolol Succinate ER 25 MG TAB.ER.24H 75 MG PO (09:01)
[2020-07-25] MEDS: Omeprazole 20 MG CAPSULE.DR PO (09:01)
[2020-07-25 09:02] VITALS: BP 123/68; PULSE 92
[2020-07-25] MEDS: Clopidogrel Bisulfate 75 MG TABLET PO (09:02)
[2020-07-25] MEDS: lisinopriL 2.5 MG TABLET PO (09:02)
[2020-07-25] MEDS: metFORMIN HCl 1,000 MG TABLET 1000 MG PO (09:02)
[2020-07-25] MEDS: Furosemide 20 MG TABLET PO (09:02)
[2020-07-25] MEDS: Aspirin Enteric Coated 81 MG TABLET.DR PO (09:02)
--- NOTE | 2020-07-25 14:03 | PM.CNCAR ---
History of Present Illness History of Present Illness Date of Service: 07/25/20 Requesting physician: Hannah Cade Consult reason: other (Cardiac evaluation) Chief complaint: psychosis Narrative: I was asked to see Juan in cardiology consultation today for prior history of congestive heart failure. Patient is a very poor historian. Does not know much prior history. He was brought in to the hospital because he was refusing to take his antipsychotics. Patient was admitted and Cardiology consult was requested because patient has history of heart failure. Reviewing his med it seems like he is on Lasix 40 mg b.i.d.. On asking patient whether he has prior history of heart failure he said he does not know and was never told. He does not see a primary care physician. He currently denies any cardiac symptoms. Denies shortness of breath, leg edema, orthopnea, PND, chest pain. He was started in his usual medications. His blood pressure is controlled. Review of Systems Review of Systems: Yes Unobtainable due to mental status PMFSH Past Medical History Medical History Anemia Diabetes Heart failure HTN (hypertension) Hyperlipidemia Morbid obesity Peripheral vascular disease Pneumonia Schizophrenia Social History Social History Household Members: Other Housing: Long-Term Alcohol intake: unknown Smoking Status: Never smoker Smoked in Last 30 Days: No Second Hand Smoke Exposure: No Use of substances other than those prescribed or required for medical reasons: No Currently Displaying Signs/Symptoms of Drug Intoxication Withdrawal: No Have you been hit, kicked, punched, or otherwise hurt by someone within the past year? If so, by whom?: No Do you feel safe in your current relationship?: No Current Relationship Is there a partner from a previous relationship who is making you feel unsafe now?: No Are you made to feel afraid or neglected: No Spiritual Healthcare Practices: none identified Advance Directives: No Advance Directives Information Provided: Yes Do you have thoughts of harming others: None Do you have a plan to hurt others: No Plan Recently lost weight without trying: No How much weight loss: Not applicable Eating poorly because of decreased appetite: Yes Nutrition screen score: 1 Nutrition Risks: No Nutritional Risk Poor oral hygiene: Yes service: No Sexual orientation: Straight/Heterosexual Meds Allergies Allergy/AdvReac Type Severity Reaction Status Date / Time No Known Allergies Allergy Verified 07/21/20 16:39 Active Medications: Current Medications Generic Name Dose Route Start Last Admin Trade Name Freq PRN Reason Stop Dose Admin Acetaminophen 650 mg 07/23/20 21:13 07/24/20 09:57 Acetaminophen 325 Mg Tablet PO 650 mg Q6H PRN Administration Headache/Pain Mild Scale (1-3) Al Hydroxide/Mg Hydroxide 30 ml 07/23/20 21:13 Magnesium Hydrox/Alum Hydrox 30 Ml Oral.Susp PO Q6H PRN Heartburn/Nausea Aspirin 81 mg 07/25/20 09:00 07/25/20 09:02 Aspirin Enteric Coated 81 Mg Tablet.Dr PO 81 mg DAILY [facility] Administration Atorvastatin Calcium 80 mg 07/23/20 21:00 07/24/20 23:44 Atorvastatin Calcium 80 Mg Tablet PO Not Given BEDTIME [facility] Clopidogrel Bisulfate 75 mg 07/23/20 17:00 07/25/20 09:02 Clopidogrel Bisulfate 75 Mg Tablet PO 75 mg DAILY [facility] Administration Clozapine 25 mg 07/24/20 21:00 07/24/20 19:38 Clozapine 25 Mg Tablet PO Not Given BEDTIME [facility] Docusate Sodium 100 mg 07/23/20 21:00 07/24/20 23:45 Docusate Sodium 100 Mg Capsule PO Not Given BEDTIME [facility] Finasteride 5 mg 07/23/20 17:00 07/24/20 09:58 Finasteride 5 Mg Tablet PO 5 mg DAILY [facility] Administration Furosemide 40 mg 07/25/20 17:00 Furosemide 40 Mg Tablet PO BIDWM [facility] Protocol Hydroxyzine HCl 25 mg 07/23/20 21:13 Hydroxyzine Hcl 25 Mg Tablet PO BEDTIME PRN Anxiety Lisinopril 2.5 mg 07/23/20 17:00 07/25/20 09:02 Lisinopril 2.5 Mg Tablet PO 2.5 mg DAILY [facility] Administration Protocol Loperamide HCl 2 mg 07/24/20 15:43 07/24/20 15:54 Loperamide Hcl 2 Mg Capsule PO 2 mg Q4H PRN Administration Diarrhea Magnesium Hydroxide 30 ml 07/23/20 21:13 Milk Of Magnesia 30 Ml Oral.Susp PO DAILY PRN Constipation Metformin HCl 1,000 mg 07/24/20 08:00 07/25/20 09:02 Metformin Hcl 1,000 Mg Tablet PO 1,000 mg BIDWM [facility] Administration Metoprolol Succinate 75 mg 07/23/20 17:00 07/25/20 09:01 Metoprolol Succinate Er 25 Mg Tab.Er.24h PO 75 mg DAILY [facility] Administration Protocol Multi-Ingred Cream/Lotion/Oil/Oint 1 appl 07/24/20 21:00 07/24/20 19:39 Mineral Oil/Petrolatum,White 106 Gm Tube TOPICAL Not Given BID [facility] Omeprazole 20 mg 07/24/20 06:30 07/25/20 09:01 Omeprazole 20 Mg Capsule.Dr PO 20 mg DAILY@0630 [facility] Administration Tamsulosin HCl 0.4 mg 07/25/20 21:00 Tamsulosin Hcl 0.4 Mg Capsule PO BEDTIME [facility] Trazodone HCl 50 mg 07/23/20 21:13 Trazodone Hcl 50 Mg Tablet PO BEDTIME PRN Insomnia Vitamin D 50 mcg 07/23/20 21:00 07/24/20 23:45 Cholecalciferol (Vitamin D3) 25 Mcg Tablet PO Not Given BEDTIME [facility] Home Medications Medication Instructions Recorded Confirmed Last Taken Type aspirin 81 mg PO DAILY 07/22/20 07/22/20 Unknown History atorvastatin 80 mg PO BEDTIME 07/22/20 07/22/20 Unknown History cholecalciferol (vitamin D3) 2,000 unit BEDTIME 07/22/20 07/22/20 Unknown History clopidogrel 75 mg PO DAILY 07/22/20 07/22/20 Unknown History clozapine [Clozaril] 200 mg PO DAILY 07/22/20 07/22/20 Unknown History clozapine [Clozaril] 400 mg PO BEDTIME 07/22/20 07/22/20 Unknown History docusate sodium 100 mg PO BEDTIME 07/22/20 07/22/20 Unknown History finasteride 5 mg PO DAILY 07/22/20 07/22/20 Unknown History furosemide [Lasix] 40 mg PO BID 07/22/20 07/22/20 Unknown History lisinopril 2.5 mg PO DAILY 07/22/20 07/22/20 Unknown History magnesium oxide 800 mg PO DAILY 07/22/20 07/22/20 Unknown History metformin 1,000 mg PO BID 07/22/20 07/22/20 Unknown History metoprolol succinate 75 mg PO DAILY 07/22/20 07/22/20 Unknown History pantoprazole [Protonix] 40 mg PO DAILY 07/22/20 07/22/20 Unknown History tamsulosin 0.4 mg PO DAILY 07/22/20 07/22/20 Unknown History Physical Exam Vital Signs: Vital Signs: Last Vital Signs Temp 97.6 F 07/25/20 06:00 Pulse 92 07/25/20 09:02 Resp 22 H 07/25/20 06:00 BP 123/68 07/25/20 09:02 Pulse Ox 97 07/25/20 06:00 Body Mass Index 44.0 Const: General: cooperative, no acute distress, alert, awake and poor hygiene Nutritional Appearance: obese morbidly obese Limitations: physical limitations HENMT: Head: Yes normocephalic and Yes atraumatic Neck: Neck: Yes trachea midline, Yes supple and Yes no JVD Resp: Effort & Inspection: normal respiratory effort Auscultation: clear to auscultation bilaterally Cardio: Jugular venous distension: no JVD Palpation: normal PMI Rate: regular rate Rhythm: regular rhythm Heart sounds: S1 normal heart sound present and S2 normal heart sound present GI: Inspection: Yes Abdominal panniculus present and Yes obesity Auscultation: normal bowel sounds Skin: General skin exam: crusts and dry skin Neuro: General: no focal motor deficits Extrem: General: Yes no clubbing, cyanosis or edema Results Labs and Meds Result diagrams: 07/24/20 08:06 07/24/20 08:06 Lab results: Laboratory Results - last 24 hr 07/24/20 07/24/20 07/25/20 16:09 19:54 06:47 POC Glucose 105 89 110 EKG shows normal sinus rhythm with Q-waves in lead 3 and AVF, suggestive of inferior infarct. However this is old and could be related to body habitus. Nonspecific ST changes Assessment and Plan (1) Schizophrenia, paranoid, subchronic with acute exacerbation: Status: Acute Patient admitted for acute exacerbation of sschizophrenia and refusing to take his medications. He has prior history of reported heart failure. He is currently on Lasix therapy. Clinically today appears to have no symptoms and no signs of congestive heart failure appears to be euvolemic. Continue current medical regimen. Blood pressure is well optimized. He is currently on dual antiplatelet therapy, he is not able to give further history as to why this is so. There is no reported recent intervention. However he does have history of peripheral vascular disease. For now will continue the same. This will need to be addressed as outpatient through his primary care physician's office. No further cardiac workup is indicated at this point time. Patient stable from cardiac perspective. Will sign of the case at this point in time. Procedures Date of Service Date of Service: 07/25/20
--- NOTE | 2020-07-25 16:19 | P.PNPSI_ITS ---
Subjective Subjective Date of Service: 07/25/20 Reason For Visit: psychosis Subjective Notes: Conditional Voluntary Interim History: Juan continues to report hearing voices telling him not to take medications. He is refusing also his medical medications at times. He denies SI/HI. He has been mostly in bed, minimally interactive with peers, very guarded, which his brother reports is not his baseline. Medication Compliance: No Side effects from medications: No Attending Groups: Intermittent Review of Systems Review of Systems Constitutional: No Fever, No Chills ENT/Mouth: No Ear Pain, No Nasal Congestion, No sore throat Eyes: No Eye Pain, No Swelling, No Redness Cardiovascular: No Chest Pain, No SOB Respiratory: No Cough, No Sputum, No Dyspnea Gastrointestinal: No Nausea, No Vomiting, No Diarrhea, No Hematochezia, No Melena Genitourinary: No Dysuria, No Urinary Frequency, No Hematuria Musculoskeletal: No Myalgias Skin: No Skin Lesions, No rash Neuro: No Weakness, No Numbness, No Paresthesias, No Dizziness, No Headache Psych: Refusal of Fernandez [facility] medications, No Anxiety, no Depression, no SI/HI Heme/Lymph: No Lymphadenopathy Endocrine: No Polyuria, No Polydipsia Yes all other systems are reviewed and are negative and Unobtainable due to mental status Gastrointestinal: Reports abdominal pain and Reports constipation Mental Status Exam Mental Status Exam Narrative: Appearance: [place] male, disheveled, involuntary upper extremity movements, restless Behavior: restless, guarded Psychomotor: significant involuntary bilateral upper extremity movement Speech: mumbles at times, significant delayed response rate, soft tone, minimally spontaneous TP: single work answers TC:poverty of thought Mood: okay Affect:restless, anxious SI:denies HI:denies AH/VH:appears internally preoccupied Delusions:guarded Insight/judgment:impaired Memory/cog: alert, oriented to month, year not to situation nor place. Diagnostics Vital Signs (24Hr): Vital Signs - 24 hr 07/25/20 06:00 07/25/20 09:01 07/25/20 09:02 Temperature 97.6 F Pulse Rate 107 H 92 92 Respiratory Rate 22 H Blood Pressure 128/82 123/68 123/68 Pulse Oximetry 97 Body Mass Index 44.0 Labs Results: 07/24/20 08:06 07/24/20 08:06 Labs: Laboratory Results - last 48 hr 07/24/20 07/24/20 07/24/20 06:30 08:06 08:06 WBC 9.4 RBC 4.54 L Hgb 11.5 L Hct 36.5 L MCV 80.4 MCH 25.3 L MCHC 31.5 RDW 15.1 Plt Count 306 MPV 9.7 Immature Gran % (Auto) 0.2 Neut % (Auto) 68.2 Lymph % (Auto) 20.6 [place] % (Auto) 8.8 Eos % (Auto) 1.9 Baso % (Auto) 0.3 Lymph # (Auto) 1.9 [place] # (Auto) 0.8 Eos # (Auto) 0.2 Baso # (Auto) 0.0 Abs Immat Gran (auto) 0.02 Absolute Neuts (auto) 6.4 Absolute Nucleated RBC 0.000 Nucleated RBC % (auto) 0.0 Sodium 140 Potassium 3.9 Chloride 103 Carbon Dioxide 28 Anion Gap 13 BUN 10 D Creatinine 0.74 Estim Creat Clear Calc 190.4 Estimated GFR > 60 POC Glucose 116 H Fasting Glucose 119 H Estimat Average Glucose Hemoglobin A1c % Calcium 8.7 Magnesium 1.8 Total Bilirubin 0.8 Direct Bilirubin 0.3 AST 24 ALT 21 Alkaline Phosphatase 60 Total Protein 5.9 L Albumin 3.3 L Triglycerides 103 Cholesterol 157 LDL Cholesterol, Calc 106 HDL Cholesterol 31 Vitamin B12 Folate 07/24/20 07/24/20 07/24/20 08:06 08:06 16:09 WBC RBC Hgb Hct MCV MCH MCHC RDW Plt Count MPV Immature Gran % (Auto) Neut % (Auto) Lymph % (Auto) [place] % (Auto) Eos % (Auto) Baso % (Auto) Lymph # (Auto) [place] # (Auto) Eos # (Auto) Baso # (Auto) Abs Immat Gran (auto) Absolute Neuts (auto) Absolute Nucleated RBC Nucleated RBC % (auto) Sodium Potassium Chloride Carbon Dioxide Anion Gap BUN Creatinine Estim Creat Clear Calc Estimated GFR POC Glucose 105 Fasting Glucose Estimat Average Glucose 151 Hemoglobin A1c % 6.9 Calcium Magnesium Total Bilirubin Direct Bilirubin AST ALT Alkaline Phosphatase Total Protein Albumin Triglycerides Cholesterol LDL Cholesterol, Calc HDL Cholesterol Vitamin B12 376 Folate 7.1 07/24/20 07/25/20 19:54 06:47 WBC RBC Hgb Hct MCV MCH MCHC RDW Plt Count MPV Immature Gran % (Auto) Neut % (Auto) Lymph % (Auto) [place] % (Auto) Eos % (Auto) Baso % (Auto) Lymph # (Auto) [place] # (Auto) Eos # (Auto) Baso # (Auto) Abs Immat Gran (auto) Absolute Neuts (auto) Absolute Nucleated RBC Nucleated RBC % (auto) Sodium Potassium Chloride Carbon Dioxide Anion Gap BUN Creatinine Estim Creat Clear Calc Estimated GFR POC Glucose 89 110 Fasting Glucose Estimat Average Glucose Hemoglobin A1c % Calcium Magnesium Total Bilirubin Direct Bilirubin AST ALT Alkaline Phosphatase Total Protein Albumin Triglycerides Cholesterol LDL Cholesterol, Calc HDL Cholesterol Vitamin B12 Folate Imaging Radiology Impressions: ITS Impressions KUB X-Ray 07/22/20 17:13 IMPRESSION: Moderate volume of stool scattered in colon. No bowel obstruction. Medications Medications Current Medications Generic Name Dose Route Start Last Admin Trade Name Freq PRN Reason Stop Dose Admin Acetaminophen 650 mg 07/23/20 21:13 07/24/20 09:57 Acetaminophen 325 Mg Tablet PO 650 mg Q6H PRN Administration Headache/Pain Mild Scale (1-3) Al Hydroxide/Mg Hydroxide 30 ml 07/23/20 21:13 Magnesium Hydrox/Alum Hydrox 30 Ml Oral.Susp PO Q6H PRN Heartburn/Nausea Aspirin 81 mg 07/25/20 09:00 07/25/20 09:02 Aspirin Enteric Coated 81 Mg Tablet. PO 81 mg DAILY AMBROCIO Administration Atorvastatin Calcium 80 mg 07/23/20 21:00 07/24/20 23:44 Atorvastatin Calcium 80 Mg Tablet PO Not Given BEDTIME AMBROCIO Clopidogrel Bisulfate 75 mg 07/23/20 17:00 07/25/20 09:02 Clopidogrel Bisulfate 75 Mg Tablet PO 75 mg DAILY AMBROCIO Administration Clozapine 25 mg 07/24/20 21:00 07/24/20 19:38 Clozapine 25 Mg Tablet PO Not Given BEDTIME AMBROCIO Docusate Sodium 100 mg 07/23/20 21:00 07/24/20 23:45 Docusate Sodium 100 Mg Capsule PO Not Given BEDTIME AMBROCIO Finasteride 5 mg 07/23/20 17:00 07/25/20 14:56 Finasteride 5 Mg Tablet PO Not Given DAILY AMBROCIO Furosemide 40 mg 07/25/20 17:00 Furosemide 40 Mg Tablet PO BIDWM AMBROCIO Protocol Hydroxyzine HCl 25 mg 07/23/20 21:13 Hydroxyzine Hcl 25 Mg Tablet PO BEDTIME PRN Anxiety Lisinopril 2.5 mg 07/23/20 17:00 07/25/20 09:02 Lisinopril 2.5 Mg Tablet PO 2.5 mg DAILY AMBROCIO Administration Protocol Loperamide HCl 2 mg 07/24/20 15:43 07/24/20 15:54 Loperamide Hcl 2 Mg Capsule PO 2 mg Q4H PRN Administration Diarrhea Magnesium Hydroxide 30 ml 07/23/20 21:13 Milk Of Magnesia 30 Ml Oral.Susp PO DAILY PRN Constipation Metformin HCl 1,000 mg 07/24/20 08:00 07/25/20 09:02 Metformin Hcl 1,000 Mg Tablet PO 1,000 mg BIDWM AMBROCIO Administration Metoprolol Succinate 75 mg 07/23/20 17:00 07/25/20 09:01 Metoprolol Succinate Er 25 Mg Tab.Er.24h PO 75 mg DAILY AMBROCIO Administration Protocol Multi-Ingred Cream/Lotion/Oil/Oint 1 appl 07/24/20 21:00 07/25/20 14:56 Mineral Oil/Petrolatum,White 106 Gm Tube TOPICAL Not Given BID [facility] Omeprazole 20 mg 07/24/20 06:30 07/25/20 09:01 Omeprazole 20 Mg Capsule. PO 20 mg DAILY@0630 [facility] Administration Tamsulosin HCl 0.4 mg 07/25/20 21:00 Tamsulosin Hcl 0.4 Mg Capsule PO BEDTIME AMBROCIO Trazodone HCl 50 mg 07/23/20 21:13 Trazodone Hcl 50 Mg Tablet PO BEDTIME PRN Insomnia Vitamin D 50 mcg 07/23/20 21:00 07/24/20 23:45 Cholecalciferol (Vitamin D3) 25 Mcg Tablet PO Not Given BEDTIME [facility] Allergies Allergies Allergy/AdvReac Type Severity Reaction Status Date / Time No Known Allergies Allergy Verified 07/21/20 16:39 Assessment & Plan Assessment & Plan (1) Schizophrenia, paranoid, subchronic with acute exacerbation: Status: Acute Code(s): F20.0 - Paranoid schizophrenia Assessment and Plan: 1. may have to amend fernandez to include antipsychotics that include antipsyc hotics with IM option. continue to offer clozaril. . (2) Heart failure: Status: Acute Code(s): I50.9 - Heart failure, unspecified Assessment and Plan: Per cardiology-->Patient admitted for acute exacerbation of sschizophrenia and refusing to take his medications. He has prior history of reported heart failure. He is currently on Lasix therapy. Clinically today appears to have no symptoms and no signs of congestive heart failure appears to be euvolemic. Continue current medical regimen. Blood pressure is well optimized. He is currently on dual antiplatelet therapy, he is not able to give further history as to why this is so. There is no reported recent intervention. However he does have history of peripheral vascular disease. For now will continue the same. This will need to be addressed as outpatient through his primary care physician's office. No further cardiac workup is indicated at this point time. Patient stable from cardiac perspective. Will sign of the case at this point in time Greater than 50% of the session was spent on counseling and/or coordination of care Reason for contiued inpatient stay Substantial Risk for: inability to function
[2020-07-25 18:00] VITALS: BP 111/50; PULSE 77; RESP 20; TEMP 36.3
[2020-07-25 20:05] LABS: Glucose, Whole Blood 92 mg/dL (60-115)
[2020-07-26 06:00] VITALS: PULSE 86; RESP 20; TEMP 36; O2SAT 98
[2020-07-26 06:49] LABS: Glucose, Whole Blood 98 mg/dL (60-115)
--- NOTE | 2020-07-26 07:37 | HO.PSYCHPN ---
Subjective Subjective Date of Service: 07/26/20 Reason For Visit: psychosis Interim History: Juan superficial and withdrawn; reports hearing voices telling him not to take medications. Took his meds this am with much effort by nursing staff. He denies SI/HI. He is mostly in bed, minimally interactive with peers, very guarded.legs less edematous since starting lasix Review of Systems Review of Systems Constitutional: No Fever, No Chills ENT/Mouth: No Ear Pain, No Nasal Congestion, No sore throat Eyes: No Eye Pain, No Swelling, No Redness Cardiovascular: No Chest Pain, No SOB Respiratory: No Cough, No Sputum, No Dyspnea Gastrointestinal: No Nausea, No Vomiting, No Diarrhea, No Hematochezia, No Melena Genitourinary: No Dysuria, No Urinary Frequency, No Hematuria Musculoskeletal: No Myalgias Skin: No Skin Lesions, No rash; legs with edema bilat and light pink; not warm or painful. Neuro: No Weakness, No Numbness, No Paresthesias, No Dizziness, No Headache Psych: [facility], No Anxiety, no Depression, no SI/HI Heme/Lymph: No Lymphadenopathy Endocrine: No Polyuria, No Polydipsia Yes all other systems are reviewed and are negative and Unobtainable due to mental status Gastrointestinal: Reports abdominal pain and Reports constipation Mental Status Exam Mental Status Exam Narrative: Appearance: male, disheveled, restless Behavior: restless, guarded, dismissive Psychomotor: significant involuntary bilateral upper extremity movement Speech: mumbles at times, significant delayed response rate, soft tone, minimally spontaneous TP: single word answers TC:poverty of thought Mood: okay Affect:restless, anxious, irritable SI:denies HI:denies AH/VH:appears internally preoccupied Delusions:guarded Insight/judgment:impaired Memory/cog: alert, oriented to month, year not to situation nor place. judgement: poor-fair Diagnostics Vital Signs (24Hr): Vital Signs - 24 hr 07/25/20 09:01 07/25/20 09:02 07/25/20 18:00 Temperature 97.3 F Pulse Rate 92 92 77 Respiratory Rate 20 Blood Pressure 123/68 123/68 111/50 L Pulse Oximetry 07/26/20 06:00 Temperature 96.8 F Pulse Rate 86 Respiratory Rate 20 Blood Pressure Pulse Oximetry 98 Body Mass Index 44.0 Labs Results: 07/24/20 08:06 07/24/20 08:06 Labs: Laboratory Results - last 48 hr 07/24/20 07/24/20 07/24/20 08:06 08:06 08:06 WBC 9.4 RBC 4.54 L Hgb 11.5 L Hct 36.5 L MCV 80.4 MCH 25.3 L MCHC 31.5 RDW 15.1 Plt Count 306 MPV 9.7 Immature Gran % (Auto) 0.2 Neut % (Auto) 68.2 Lymph % (Auto) 20.6 [place] % (Auto) 8.8 Eos % (Auto) 1.9 Baso % (Auto) 0.3 Lymph # (Auto) 1.9 [place] # (Auto) 0.8 Eos # (Auto) 0.2 Baso # (Auto) 0.0 Abs Immat Gran (auto) 0.02 Absolute Neuts (auto) 6.4 Absolute Nucleated RBC 0.000 Nucleated RBC % (auto) 0.0 Sodium 140 Potassium 3.9 Chloride 103 Carbon Dioxide 28 Anion Gap 13 BUN 10 D Creatinine 0.74 Estim Creat Clear Calc 190.4 Estimated GFR > 60 POC Glucose Fasting Glucose 119 H Estimat Average Glucose 151 Hemoglobin A1c % 6.9 Calcium 8.7 Magnesium 1.8 Total Bilirubin 0.8 Direct Bilirubin 0.3 AST 24 ALT 21 Alkaline Phosphatase 60 Total Protein 5.9 L Albumin 3.3 L Triglycerides 103 Cholesterol 157 LDL Cholesterol, Calc 106 HDL Cholesterol 31 Vitamin B12 Folate 07/24/20 07/24/20 07/24/20 08:06 16:09 19:54 WBC RBC Hgb Hct MCV MCH MCHC RDW Plt Count MPV Immature Gran % (Auto) Neut % (Auto) Lymph % (Auto) [place] % (Auto) Eos % (Auto) Baso % (Auto) Lymph # (Auto) [place] # (Auto) Eos # (Auto) Baso # (Auto) Abs Immat Gran (auto) Absolute Neuts (auto) Absolute Nucleated RBC Nucleated RBC % (auto) Sodium Potassium Chloride Carbon Dioxide Anion Gap BUN Creatinine Estim Creat Clear Calc Estimated GFR POC Glucose 105 89 Fasting Glucose Estimat Average Glucose Hemoglobin A1c % Calcium Magnesium Total Bilirubin Direct Bilirubin AST ALT Alkaline Phosphatase Total Protein Albumin Triglycerides Cholesterol LDL Cholesterol, Calc HDL Cholesterol Vitamin B12 376 Folate 7.1 07/25/20 07/25/20 07/26/20 06:47 20:02 05:49 WBC RBC Hgb Hct MCV MCH MCHC RDW Plt Count MPV Immature Gran % (Auto) Neut % (Auto) Lymph % (Auto) [place] % (Auto) Eos % (Auto) Baso % (Auto) Lymph # (Auto) [place] # (Auto) Eos # (Auto) Baso # (Auto) Abs Immat Gran (auto) Absolute Neuts (auto) Absolute Nucleated RBC Nucleated RBC % (auto) Sodium Potassium Chloride Carbon Dioxide Anion Gap BUN Creatinine Estim Creat Clear Calc Estimated GFR POC Glucose 110 92 98 Fasting Glucose Estimat Average Glucose Hemoglobin A1c % Calcium Magnesium Total Bilirubin Direct Bilirubin AST ALT Alkaline Phosphatase Total Protein Albumin Triglycerides Cholesterol LDL Cholesterol, Calc HDL Cholesterol Vitamin B12 Folate Imaging Radiology Impressions: ITS Impressions KUB X-Ray 07/22/20 17:13 IMPRESSION: Moderate volume of stool scattered in colon. No bowel obstruction. Medications Medications Current Medications Generic Name Dose Route Start Last Admin Trade Name Freq PRN Reason Stop Dose Admin Acetaminophen 650 mg 07/23/20 21:13 07/24/20 09:57 Acetaminophen 325 Mg Tablet PO 650 mg Q6H PRN Administration Headache/Pain Mild Scale (1-3) Al Hydroxide/Mg Hydroxide 30 ml 07/23/20 21:13 Magnesium Hydrox/Alum Hydrox 30 Ml Oral.Susp PO Q6H PRN Heartburn/Nausea Aspirin 81 mg 07/25/20 09:00 07/25/20 09:02 Aspirin Enteric Coated 81 Mg Tablet. PO 81 mg DAILY AMBROCIO Administration Atorvastatin Calcium 80 mg 07/23/20 21:00 07/25/20 21:05 Atorvastatin Calcium 80 Mg Tablet PO Not Given BEDTIME AMBROCIO Clopidogrel Bisulfate 75 mg 07/23/20 17:00 07/25/20 09:02 Clopidogrel Bisulfate 75 Mg Tablet PO 75 mg DAILY AMBROCIO Administration Clozapine 25 mg 07/24/20 21:00 07/25/20 21:05 Clozapine 25 Mg Tablet PO Not Given BEDTIME AMBROCIO Docusate Sodium 100 mg 07/23/20 21:00 07/25/20 21:05 Docusate Sodium 100 Mg Capsule PO Not Given BEDTIME AMBROCIO Finasteride 5 mg 07/23/20 17:00 07/25/20 14:56 Finasteride 5 Mg Tablet PO Not Given DAILY AMBROCIO Furosemide 40 mg 07/25/20 17:00 07/25/20 17:11 Furosemide 40 Mg Tablet PO Not Given BIDWM [facility] Protocol Hydroxyzine HCl 25 mg 07/23/20 21:13 Hydroxyzine Hcl 25 Mg Tablet PO BEDTIME PRN Anxiety Lisinopril 2.5 mg 07/23/20 17:00 07/25/20 09:02 Lisinopril 2.5 Mg Tablet PO 2.5 mg DAILY AMBROCIO Administration Protocol Loperamide HCl 2 mg 07/24/20 15:43 07/24/20 15:54 Loperamide Hcl 2 Mg Capsule PO 2 mg Q4H PRN Administration Diarrhea Magnesium Hydroxide 30 ml 07/23/20 21:13 Milk Of Magnesia 30 Ml Oral.Susp PO DAILY PRN Constipation Metformin HCl 1,000 mg 07/24/20 08:00 07/25/20 17:11 Metformin Hcl 1,000 Mg Tablet PO Not Given BIDWM AMBROCIO Metoprolol Succinate 75 mg 07/23/20 17:00 07/25/20 09:01 Metoprolol Succinate Er 25 Mg Tab.Er.24h PO 75 mg DAILY [facility] Administration Protocol Multi-Ingred Cream/Lotion/Oil/Oint 1 appl 07/24/20 21:00 07/25/20 21:06 Mineral Oil/Petrolatum,White 106 Gm Tube TOPICAL Not Given BID [facility] Omeprazole 20 mg 07/24/20 06:30 07/25/20 09:01 Omeprazole 20 Mg Capsule. PO 20 mg DAILY@0630 [facility] Administration Tamsulosin HCl 0.4 mg 07/25/20 21:00 07/25/20 21:06 Tamsulosin Hcl 0.4 Mg Capsule PO Not Given BEDTIME [facility] Trazodone HCl 50 mg 07/23/20 21:13 Trazodone Hcl 50 Mg Tablet PO BEDTIME PRN Insomnia Vitamin D 50 mcg 07/23/20 21:00 07/25/20 21:05 Cholecalciferol (Vitamin D3) 25 Mcg Tablet PO Not Given BEDTIME [facility] Allergies Allergies Allergy/AdvReac Type Severity Reaction Status Date / Time No Known Allergies Allergy Verified 07/21/20 16:39 Assessment & Plan Assessment & Plan (1) Schizophrenia, paranoid, subchronic with acute exacerbation: Status: Acute Code(s): F20.0 - Paranoid schizophrenia Assessment and Plan: 1. continue to encourage PO meds 2. may have to amend fernandez to include antipsychotics that include antipsychotics with IM option. continue to offer clozaril. . (2) Heart failure: Status: Acute Code(s): I50.9 - Heart failure, unspecified Assessment and Plan: Continue cardiology recommendations: Per cardiology-->Patient admitted for acute exacerbation of sschizophrenia and refusing to take his medications. He has prior history of reported heart failure. He is currently on Lasix therapy. Clinically today appears to have no symptoms and no signs of congestive heart failure appears to be euvolemic. Continue current medical regimen. Blood pressure is well optimized. He is currently on dual antiplatelet therapy, he is not able to give further history as to why this is so. There is no reported recent intervention. However he does have history of peripheral vascular disease. For now will continue the same. This will need to be addressed as outpatient through his primary care physician's office. No further cardiac workup is indicated at this point time. Patient stable from cardiac perspective. Will sign of the case at this point in time Greater than 50% of the session was spent on counseling and/or coordination of care Patient educated on: medication risk/benefits and medical condition Informed Consent: further education needed Reason for contiued inpatient stay Substantial Risk for: inability to function and med/psych decompensation
[2020-07-26] MEDS: Furosemide 40 MG TABLET PO ×2 (09:04→17:05)
[2020-07-26] MEDS: Omeprazole 20 MG CAPSULE.DR PO (09:04)
[2020-07-26] MEDS: Finasteride 5 MG TABLET PO (09:05)
[2020-07-26] MEDS: Aspirin Enteric Coated 81 MG TABLET.DR PO (09:05)
[2020-07-26] MEDS: Clopidogrel Bisulfate 75 MG TABLET PO (09:05)
[2020-07-26] MEDS: metFORMIN HCl 1,000 MG TABLET 1000 MG PO ×2 (09:05→17:05)
[2020-07-26] MEDS: QUEtiapine Fumarate 50 MG TABLET PO ×2 (14:40→21:04)
[2020-07-26 17:05] LABS: Glucose, Whole Blood 96 mg/dL (60-115)
[2020-07-26 17:42] VITALS: BP 119/72; PULSE 113; RESP 18; TEMP 36.6; O2SAT 95
[2020-07-26] MEDS: Nystatin Cream 15 GM TUBE 1 APPL TOPICAL (20:58)
[2020-07-26] MEDS: Cholecalciferol (Vitamin D3) 25 MCG TABLET 50 MCG PO (21:03)
[2020-07-26] MEDS: Tamsulosin HCL 0.4 MG CAPSULE PO (21:04)
[2020-07-26] MEDS: cloZAPine 25 MG TABLET PO (21:04)
[2020-07-26] MEDS: Atorvastatin Calcium 80 MG TABLET PO (21:04)
[2020-07-26] MEDS: Mineral Oil/Petrolatum,White 106 GM Tube 1 APPL TOPICAL (21:04)
[2020-07-26] MEDS: Docusate Sodium 100 MG CAPSULE PO (21:04)
[2020-07-27 06:00] VITALS: BP 108/56; PULSE 96; TEMP 36.1; O2SAT 95
[2020-07-27 06:24] LABS: Glucose, Whole Blood 112 mg/dL (60-115)
[2020-07-27] MEDS: Clopidogrel Bisulfate 75 MG TABLET PO (08:33)
[2020-07-27] MEDS: Finasteride 5 MG TABLET PO (08:33)
[2020-07-27] MEDS: Furosemide 40 MG TABLET PO ×2 (08:33→16:52)
[2020-07-27] MEDS: Omeprazole 20 MG CAPSULE.DR PO (08:33)
[2020-07-27] MEDS: metFORMIN HCl 1,000 MG TABLET 1000 MG PO ×2 (08:33→16:52)
[2020-07-27 08:38] VITALS: BP 108/56
[2020-07-27] MEDS: Aspirin Enteric Coated 81 MG TABLET.DR PO (08:38)
[2020-07-27] MEDS: Mineral Oil/Petrolatum,White 106 GM Tube 1 APPL TOPICAL ×2 (08:39→20:32)
[2020-07-27] MEDS: Nystatin Cream 15 GM TUBE 1 APPL TOPICAL (08:39)
[2020-07-27] MEDS: QUEtiapine Fumarate 50 MG TABLET PO ×2 (10:18→20:11)
--- NOTE | 2020-07-27 16:55 | P.PNPSI_ITS ---
Subjective Subjective Date of Service: 07/27/20 Reason For Visit: psychosis Interim History: Juan superficial and withdrawn; reports hearing voices telling him not to take medications. Taking meds in am bt refusing PM and HS meds. He denies SI/HI. He is mostly in bed, minimally interactive with peers, very guarded.legs less edematous since starting lasix Fearful of getting out of bd; fearful of eating; Review of Systems Review of Systems Constitutional: No Fever, No Chills ENT/Mouth: No Ear Pain, No Nasal Congestion, No sore throat Eyes: No Eye Pain, No Swelling, No Redness Cardiovascular: No Chest Pain, No SOB Respiratory: No Cough, No Sputum, No Dyspnea Gastrointestinal: No Nausea, No Vomiting, No Diarrhea, No Hematochezia, No Melena Genitourinary: No Dysuria, No Urinary Frequency, No Hematuria Musculoskeletal: No Myalgias Skin: No Skin Lesions, No rash; legs with edema bilat and light pink; not warm or painful. abraisoons on knee - no sign of infection Neuro: No Weakness, No Numbness, No Paresthesias, No Dizziness, No Headache Psych: Refusal of [facility] medications, No Anxiety, no Depression, no SI/HI Heme/Lymph: No Lymphadenopathy Endocrine: No Polyuria, No Polydipsia Yes all other systems are reviewed and are negative and Unobtainable due to mental status Gastrointestinal: Reports abdominal pain and Reports constipation Mental Status Exam Mental Status Exam Narrative: Appearance: disheveled, restless Behavior: restless, guarded, dismissive Psychomotor: significant involuntary bilateral upper extremity movement Speech: mumbles at times, significant delayed response rate, soft tone, minimally spontaneous TP: single word answers TC:poverty of thought Mood: okay Affect:restless, anxious, irritable SI:denies HI:denies AH/VH:appears internally preoccupied Delusions:guarded Insight/judgment:impaired Memory/cog: alert, oriented to month, year not to situation nor place. judgement: poor-fair Diagnostics Vital Signs (24Hr): Vital Signs - 24 hr 07/26/20 17:42 07/27/20 06:00 07/27/20 08:38 Temperature 97.9 F 97.0 F Pulse Rate 113 H 96 Respiratory Rate 18 Blood Pressure 119/72 108/56 L 108/56 L Pulse Oximetry 95 95 Body Mass Index 44.0 Labs Results: 07/24/20 08:06 07/24/20 08:06 Labs: Laboratory Results - last 48 hr 07/25/20 07/26/20 07/26/20 20:02 05:49 17:00 POC Glucose 92 98 96 07/27/20 06:09 POC Glucose 112 Imaging Radiology Impressions: ITS Impressions KUB X-Ray 07/22/20 17:13 IMPRESSION: Moderate volume of stool scattered in colon. No bowel obstruction. Medications Medications Current Medications Generic Name Dose Route Start Last Admin Trade Name Freq PRN Reason Stop Dose Admin Acetaminophen 650 mg 07/23/20 21:13 07/24/20 09:57 Acetaminophen 325 Mg Tablet PO 650 mg Q6H PRN Administration Headache/Pain Mild Scale (1-3) Al Hydroxide/Mg Hydroxide 30 ml 07/23/20 21:13 Magnesium Hydrox/Alum Hydrox 30 Ml Oral.Susp PO Q6H PRN Heartburn/Nausea Aspirin 81 mg 07/25/20 09:00 07/27/20 08:38 Aspirin Enteric Coated 81 Mg Tablet. PO 81 mg DAILY AMBROCIO Administration Atorvastatin Calcium 80 mg 07/23/20 21:00 07/26/20 21:04 Atorvastatin Calcium 80 Mg Tablet PO 80 mg BEDTIME AMBROCIO Administration Clopidogrel Bisulfate 75 mg 07/23/20 17:00 07/27/20 08:33 Clopidogrel Bisulfate 75 Mg Tablet PO 75 mg DAILY AMBROCIO Administration Clozapine 25 mg 07/28/20 09:00 Clozapine 25 Mg Tablet PO DAILY ABMROCIO Docusate Sodium 100 mg 07/23/20 21:00 07/26/20 21:04 Docusate Sodium 100 Mg Capsule PO 100 mg BEDTIME AMBROCIO Administration Finasteride 5 mg 07/23/20 17:00 07/27/20 08:33 Finasteride 5 Mg Tablet PO 5 mg DAILY AMBROCIO Administration Furosemide 40 mg 07/25/20 17:00 07/27/20 16:52 Furosemide 40 Mg Tablet PO 40 mg BIDWM AMBROCIO Administration Protocol Hydroxyzine HCl 25 mg 07/23/20 21:13 Hydroxyzine Hcl 25 Mg Tablet PO BEDTIME PRN Anxiety Lisinopril 2.5 mg 07/23/20 17:00 07/27/20 08:38 Lisinopril 2.5 Mg Tablet PO Not Given DAILY AMBROCIO Protocol Loperamide HCl 2 mg 07/24/20 15:43 07/24/20 15:54 Loperamide Hcl 2 Mg Capsule PO 2 mg Q4H PRN Administration Diarrhea Magnesium Hydroxide 30 ml 07/23/20 21:13 Milk Of Magnesia 30 Ml Oral.Susp PO DAILY PRN Constipation Metformin HCl 1,000 mg 07/24/20 08:00 07/27/20 16:52 Metformin Hcl 1,000 Mg Tablet PO 1,000 mg BIDWM AMBROCIO Administration Metoprolol Succinate 75 mg 07/23/20 17:00 07/27/20 08:38 Metoprolol Succinate Er 25 Mg Tab.Er.24h PO Not Given DAILY AMBROCIO Protocol Multi-Ingred Cream/Lotion/Oil/Oint 1 appl 07/24/20 21:00 07/27/20 08:39 Mineral Oil/Petrolatum,White 106 Gm Tube TOPICAL 1 appl BID AMBROCIO Administration Nystatin 1 appl 07/26/20 19:25 07/27/20 08:39 Nystatin Cream 15 Gm Tube TOPICAL 1 appl DAILY AMBROCIO Administration Protocol Omeprazole 20 mg 07/24/20 06:30 07/27/20 08:33 Omeprazole 20 Mg Capsule. PO 20 mg DAILY@0630 AMBROCIO Administration Quetiapine Fumarate 50 mg 07/26/20 15:00 07/27/20 10:18 Quetiapine Fumarate 50 Mg Tablet PO 50 mg BID AMBROCIO Administration Quetiapine Fumarate 25 mg 07/26/20 14:28 Quetiapine Fumarate 25 Mg Tablet PO BID PRN anxiety/restlessness Tamsulosin HCl 0.4 mg 07/25/20 21:00 07/26/20 21:04 Tamsulosin Hcl 0.4 Mg Capsule PO 0.4 mg BEDTIME AMBROCIO Administration Trazodone HCl 50 mg 07/23/20 21:13 Trazodone Hcl 50 Mg Tablet PO BEDTIME PRN Insomnia Vitamin D 50 mcg 07/23/20 21:00 07/26/20 21:03 Cholecalciferol (Vitamin D3) 25 Mcg Tablet PO 50 mcg BEDTIME AMBROCIO Administration Allergies Allergies Allergy/AdvReac Type Severity Reaction Status Date / Time No Known Allergies Allergy Verified 07/21/20 16:39 Assessment & Plan Assessment & Plan (1) Schizophrenia, paranoid, subchronic with acute exacerbation: Status: Acute Code(s): F20.0 - Paranoid schizophrenia Assessment and Plan: 1. continue to encourage PO meds 2. Clozaril changed to am dosing to see if he will take in am as he has been accepting am meds 2. may have to amend fernandez to include antipsychotics that include antipsychotic s with IM option. continue to offer clozaril. . (2) Heart failure: Status: Acute Code(s): I50.9 - Heart failure, unspecified Assessment and Plan: Continue cardiology recommendations: Per cardiology-->Patient admitted for acute exacerbation of sschizophrenia and refusing to take his medications. He has prior history of reported heart failure. He is currently on Lasix therapy. Clinically today appears to have no symptoms and no signs of congestive heart failure appears to be euvolemic. Continue current medical regimen. Blood pressure is well optimized. He is currently on dual antiplatelet therapy, he is not able to give further history as to why this is so. There is no reported recent intervention. However he does have history of peripheral vascular disease. For now will continue the same. This will need to be addressed as outpatient through his primary care physician's office. No further cardiac workup is indicated at this point time. Patient stable from cardiac perspective. Will sign of the case at this point in time Greater than 50% of the session was spent on counseling and/or coordination of care Reason for contiued inpatient stay Substantial Risk for: harm to self, inability to function, rapid decompensation and med/psych decompensation
[2020-07-27 17:12] VITALS: BP 124/58; PULSE 101; RESP 20; TEMP 35.8; O2SAT 94
[2020-07-27 17:38] LABS: Glucose, Whole Blood 97 mg/dL (60-115)
[2020-07-27] MEDS: Tamsulosin HCL 0.4 MG CAPSULE PO (20:11)
[2020-07-27] MEDS: Docusate Sodium 100 MG CAPSULE PO (20:11)
[2020-07-27] MEDS: Atorvastatin Calcium 80 MG TABLET PO (20:11)
[2020-07-27] MEDS: Cholecalciferol (Vitamin D3) 25 MCG TABLET 50 MCG PO (20:11)
[2020-07-28] MEDS: QUEtiapine Fumarate 25 MG TABLET PO (02:16)
[2020-07-28] MEDS: hydrOXYzine HCL 25 MG TABLET PO (02:16)
[2020-07-28] MEDS: traZODone HCL 50 MG TABLET PO (02:16)
[2020-07-28 06:00] VITALS: BP 110/57; PULSE 102; TEMP 36.3; O2SAT 94
[2020-07-28] MEDS: Omeprazole 20 MG CAPSULE.DR PO (06:36)
[2020-07-28 07:11] LABS: Glucose, Whole Blood 116 mg/dL (60-115)
--- NOTE | 2020-07-28 09:16 | P.PNPSI_ITS ---
Subjective Subjective Date of Service: 07/29/20 Reason For Visit: psychosis Interim History: Juan continues to report AH telling him not to take any medications. He has declined taking medical medications as well. He is in bed all the time, refuses to walk around. He is lying down completely flat which makes it very difficult for him to breath due to heart failure. At home he apparently sleep in recliner to breath better. His bed was lifted. He is minimally interactive with staff. He denies SI/HI. He does not show understanding of medical conditions and need for medications. He states he just don't need them and admits voices are telling him that medications poison for his brain. Pt continues on one to one. He is not eating or drinking much. He has given conflicting reports as to why he is not eating. He told RN over weekend that it was because he was worried about having nausea. He told me today voices are telling him not to, which is what he has been also reporting all day long to his sitter. Given that he is not bedridden, overweight- increase risk for DVT, will start pt after consultation with hospitalist, Dr. Sussy Fields who recommended Lovenox 40mg SC daily. Pt's brother, Duc who is pt's HCP- agreed with plan to start Levonox. Duc was updated on pt's current presentation, which is significantly decompensated from baseline. At baseline, pt is more outgoing, interacts more with others, ambulates, takes medications. Review of Systems Review of Systems Constitutional: No Fever, No Chills ENT/Mouth: No Ear Pain, No Nasal Congestion, No sore throat Eyes: No Eye Pain, No Swelling, No Redness Cardiovascular: No Chest Pain, No SOB Respiratory: No Cough, No Sputum, No Dyspnea Gastrointestinal: No Nausea, No Vomiting, No Diarrhea, No Hematochezia, No Melena Genitourinary: No Dysuria, No Urinary Frequency, No Hematuria Musculoskeletal: No Myalgias Skin: No Skin Lesions, No rash; legs with edema bilat and light pink; not warm or painful. abraisoons on knee - no sign of infection Neuro: No Weakness, No Numbness, No Paresthesias, No Dizziness, No Headache Psych: Refusal of [place] orders medications, No Anxiety, no Depression, no SI/HI Heme/Lymph: No Lymphadenopathy Endocrine: No Polyuria, No Polydipsia Yes all other systems are reviewed and are negative and Unobtainable due to mental status Gastrointestinal: Reports abdominal pain and Reports constipation Mental Status Exam Mental Status Exam Narrative: Appearance: disheveled, restless Behavior: restless, guarded, dismissive Psychomotor: significant involuntary bilateral upper extremity movement Speech: mumbles at times, significant delayed response rate, soft tone, minimally spontaneous TP: single word answers TC:poverty of thought Mood: okay Affect:restless, anxious, irritable SI:denies HI:denies AH/VH:appears internally preoccupied Delusions:guarded Insight/judgment:impaired Memory/cog: alert, oriented to month, year not to situation nor place. judgement: poor-fair Diagnostics Vital Signs (24Hr): Vital Signs - 24 hr 07/28/20 17:53 07/29/20 03:35 Temperature 98.0 F 97.3 F Pulse Rate 109 H 131 H Respiratory Rate 18 18 Blood Pressure 128/91 H 122/59 L Pulse Oximetry 94 96 Body Mass Index 44.0 Labs Results: 07/29/20 08:03 07/28/20 15:18 Labs: Laboratory Results - last 48 hr 07/27/20 07/28/20 07/28/20 16:44 06:39 15:18 WBC 9.9 RBC 4.91 Hgb 12.5 L Hct 38.7 L MCV 78.8 L MCH 25.5 L MCHC 32.3 RDW 15.7 Plt Count 337 MPV 9.6 Immature Gran % (Auto) 0.5 H Neut % (Auto) 59.8 Lymph % (Auto) 26.8 Rock % (Auto) 11.1 H Eos % (Auto) 1.5 Baso % (Auto) 0.3 Lymph # (Auto) 2.7 Rock # (Auto) 1.1 Eos # (Auto) 0.2 Baso # (Auto) 0.0 Abs Immat Gran (auto) 0.05 H Absolute Neuts (auto) 5.9 Absolute Nucleated RBC 0.000 Nucleated RBC % (auto) 0.0 D-Dimer Sodium Potassium Chloride Carbon Dioxide Anion Gap BUN Creatinine Estim Creat Clear Calc Estimated GFR POC Glucose 97 116 H Random Glucose Calcium Total Bilirubin AST ALT Alkaline Phosphatase B-Natriuretic Peptide Total Protein Albumin 07/28/20 07/28/2007/28/21 15:18 15:18 15:18 WBC RBC Hgb Hct MCV MCH MCHC RDW Plt Count MPV Immature Gran % (Auto) Neut % (Auto) Lymph % (Auto) Rock % (Auto) Eos % (Auto) Baso % (Auto) Lymph # (Auto) Rock # (Auto) Eos # (Auto) Baso # (Auto) Abs Immat Gran (auto) Absolute Neuts (auto) Absolute Nucleated RBC Nucleated RBC % (auto) D-Dimer 306 Sodium 139 Potassium 4.1 Chloride 96 Carbon Dioxide 29 Anion Gap 18 BUN 18 H D Creatinine 1.02 Estim Creat Clear Calc 138.2 Estimated GFR > 60 POC Glucose Random Glucose 104 Calcium 9.2 Total Bilirubin 0.7 AST 21 ALT 25 Alkaline Phosphatase 69 B-Natriuretic Peptide 11 Total Protein 6.8 Albumin 3.8 07/28/20 07/29/20 07/29/20 16:55 05:27 08:03 WBC 11.5 H RBC 4.91 Hgb 12.5 L Hct 38.8 L MCV 79.0 L MCH 25.5 L MCHC 32.2 RDW 15.5 Plt Count 320 MPV 10.1 Immature Gran % (Auto) 0.5 H Neut % (Auto) 69.2 Lymph % (Auto) 20.5 Rock % (Auto) 9.1 Eos % (Auto) 0.4 Baso % (Auto) 0.3 Lymph # (Auto) 2.4 Rock # (Auto) 1.1 Eos # (Auto) 0.1 Baso # (Auto) 0.0 Abs Immat Gran (auto) 0.06 H Absolute Neuts (auto) 8.0 Absolute Nucleated RBC 0.000 Nucleated RBC % (auto) 0.0 D-Dimer Sodium Potassium Chloride Carbon Dioxide Anion Gap BUN Creatinine Estim Creat Clear Calc Estimated GFR POC Glucose 102 132 H Random Glucose Calcium Total Bilirubin AST ALT Alkaline Phosphatase B-Natriuretic Peptide Total Protein Albumin Imaging Radiology Impressions: ITS Impressions KUB X-Ray 07/22/20 17:13 IMPRESSION: Moderate volume of stool scattered in colon. No bowel obstruction. Medications Medications Current Medications Generic Name Dose Route Start Last Admin Trade Name Freq PRN Reason Stop Dose Admin Acetaminophen 650 mg 07/23/20 21:13 07/24/20 09:57 Acetaminophen 325 Mg Tablet PO 650 mg Q6H PRN Administration Headache/Pain Mild Scale (1-3) Al Hydroxide/Mg Hydroxide 30 ml 07/23/20 21:13 Magnesium Hydrox/Alum Hydrox 30 Ml Oral.Susp PO Q6H PRN Heartburn/Nausea Aspirin 81 mg 07/25/20 09:00 07/28/20 11:02 Aspirin Enteric Coated 81 Mg Tablet.Dr PO Not Given DAILY AMBROCIO Atorvastatin Calcium 80 mg 07/23/20 21:00 07/28/20 20:54 Atorvastatin Calcium 80 Mg Tablet PO 80 mg BEDTIME AMBROCIO Administration Clopidogrel Bisulfate 75 mg 07/23/20 17:00 07/28/20 11:02 Clopidogrel Bisulfate 75 Mg Tablet PO Not Given DAILY AMBROCIO Clozapine 25 mg 07/28/20 09:00 07/28/20 11:02 Clozapine 25 Mg Tablet PO Not Given DAILY AMBROCIO Docusate Sodium 100 mg 07/23/20 21:00 07/28/20 20:55 Docusate Sodium 100 Mg Capsule PO 100 mg BEDTIME AMBROCIO Administration Finasteride 5 mg 07/23/20 17:00 07/28/20 11:02 Finasteride 5 Mg Tablet PO Not Given DAILY AMBROCIO Furosemide 40 mg 07/25/20 17:00 07/28/20 17:22 Furosemide 40 Mg Tablet PO 40 mg BIDWM AMBROCIO Administration Protocol Hydroxyzine HCl 25 mg 07/23/20 21:13 07/29/20 01:31 Hydroxyzine Hcl 25 Mg Tablet PO 25 mg BEDTIME PRN Administration Anxiety Lisinopril 2.5 mg 07/23/20 17:00 07/28/20 11:02 Lisinopril 2.5 Mg Tablet PO Not Given DAILY [facility] Protocol Loperamide HCl 2 mg 07/24/20 15:43 07/24/20 15:54 Loperamide Hcl 2 Mg Capsule PO 2 mg Q4H PRN Administration Diarrhea Magnesium Hydroxide 30 ml 07/23/20 21:13 Milk Of Magnesia 30 Ml Oral.Susp PO DAILY PRN Constipation Metformin HCl 1,000 mg 07/24/20 08:00 07/28/20 17:22 Metformin Hcl 1,000 Mg Tablet PO 1,000 mg BIDWM AMBROCIO Administration Metoprolol Succinate 75 mg 07/23/20 17:00 07/28/20 11:03 Metoprolol Succinate Er 25 Mg Tab.Er.24h PO Not Given DAILY [facility] Protocol Multi-Ingred Cream/Lotion/Oil/Oint 1 appl 07/24/20 21:00 07/28/20 21:10 Mineral Oil/Petrolatum,White 106 Gm Tube TOPICAL 1 appl BID AMBROCIO Administration Nystatin 1 appl 07/26/20 19:25 07/28/20 11:03 Nystatin Cream 15 Gm Tube TOPICAL Not Given DAILY AMBROCIO Protocol Omeprazole 20 mg 07/24/20 06:30 07/28/20 06:36 Omeprazole 20 Mg Capsule. PO 20 mg DAILY@0630 AMBROCIO Administration Quetiapine Fumarate 50 mg 07/26/20 15:00 07/28/20 20:54 Quetiapine Fumarate 50 Mg Tablet PO 50 mg BID AMBROCIO Administration Quetiapine Fumarate 25 mg 07/26/20 14:28 07/29/20 01:31 Quetiapine Fumarate 25 Mg Tablet PO 25 mg BID PRN Administration anxiety/restlessness Tamsulosin HCl 0.4 mg 07/25/20 21:00 07/28/20 20:55 Tamsulosin Hcl 0.4 Mg Capsule PO 0.4 mg BEDTIME AMBROCIO Administration Trazodone HCl 50 mg 07/23/20 21:13 07/29/20 01:31 Trazodone Hcl 50 Mg Tablet PO 50 mg BEDTIME PRN Administration Insomnia Vitamin D 50 mcg 07/23/20 21:00 07/28/20 20:54 Cholecalciferol (Vitamin D3) 25 Mcg Tablet PO 50 mcg BEDTIME AMBROCIO Administration Allergies Allergies Allergy/AdvReac Type Severity Reaction Status Date / Time No Known Allergies Allergy Verified 07/21/20 16:39 Assessment & Plan Assessment & Plan (1) Schizophrenia, paranoid, subchronic with acute exacerbation: Status: Acute Code(s): F20.0 - Paranoid schizophrenia Assessment and Plan: 1. continue to encourage PO meds 2. Clozaril changed to am dosing to see if he will take in am as he has been accepting am meds. 3. Petition to amend [facility] hospital[facility] was completed on 07/28 to include antipsychotics that include antipsychotics with IM option. 4. Due to pt not ambulating and increase risk for DVT, will start Levonox 40mg SC daily- after consulting with Dr. Sussy Fields 5. Close monitoring of fluid overload as pt declines taking lasix, may have to do IV. Pt currently does not have capacity to make medical decisions. HCP is brother. (2) Heart failure: Status: Acute Code(s): I50.9 - Heart failure, unspecified Assessment and Plan: Continue cardiology recommendations: Per cardiology-->Patient admitted for acute exacerbation of sschizophrenia and refusing to take his medications. He has prior history of reported heart failure. He is currently on Lasix therapy. Clinically today appears to have no symptoms and no signs of congestive heart failure appears to be euvolemic. Continue current medical regimen. Blood pressure is well optimized. He is currently on dual antiplatelet therapy, he is not able to give further history as to why this is so. There is no reported recent intervention. However he does have history of peripheral vascular disease. For now will continue the [facility]. This will need to be addressed as outpatient through his primary care physician's office. No further cardiac workup is indicated at this point time. Patient stable from cardiac perspective. Will sign of the case at this point in time Greater than 50% of the session was spent on counseling and/or coordination of care Reason for contiued inpatient stay Substantial Risk for: inability to function
[2020-07-28 15:21] LABS: MANUAL DIFF FLAG NO
[2020-07-28 15:26] LABS: Basophils Percent Auto 0.3 % (0-2); Eosinophils Absolute Auto 0.2 X10*3/uL (0.0-0.4); Eosinophils Percent Auto 1.5 % (0-4); Hematocrit 38.7 % (42-52); Hemoglobin 12.5 g/dl (14.0-18.0); Imm Gran Abs Auto 0.05 X10*3/uL (0.00-0.03); Imm Gran Pct Auto 0.5 % (0.0-0.4); Lymphocytes Absolute Auto 2.7 X10*3/uL (1.2-4.9); Lymphocytes Percent Auto 26.8 % (20-40); Mean Corpuscular HGB Conc 32.3 g/dl (31.0-36.0); Mean Corpuscular Hemoglobin 25.5 pg (27.0-33.0); Mean Corpuscular Volume 78.8 fL (80-98); Mean Platelet Volume 9.6 fL (9.4-12.4); Monocytes Absolute Auto 1.1 X10*3/uL (0.1-1.2); Monocytes Percent Auto 11.1 % (2-11); Neutrophils Absolute Auto 5.9 X10*3/uL (2.0-8.3); Neutrophils Percent Auto 59.8 % (45-73); Platelet Count 337 X10*3/uL (160-400); Red Blood Count 4.91 X10*6/uL (4.60-5.80); Red Cell Distribution Width 15.7 % (11.0-16.0); White Blood Count 9.9 X10*3/uL (4.8-10.8)
--- NOTE | 2020-07-28 15:26 | PC.NURSE ---
. PT ENCOURAGED TO EAT SEVERAL TIMES, BUT IS PARANOID OF THE VOICES TELLING HIM NOT TO OR HE WILL GET SICK .PT REMAINS ISOLATIVE IN HIS ROOM , REFUSING MEDICATIONS, MEALS AND FLUIDS. BP110/57 P 102 THIS AM. PT EDUCATED ON THE IMPORTANCE OF FLUIDS AND NUTRITION TO RECOVER, BUT ONLY STARES AT T/W STATING, I CAN'T . PTS LIPS AND DRY AND CRACKED. PT HAD BEEN INC OF URINE SEVERAL TIMES YESTERDAY , BUT HAS NOT VOIDED TODAY. NOTIFIED AND ORDERED LABS AND A HOSPITALIST CONSULT. PTS LABS DRAWN AND PENDING AT THIS TIME. PT AGAIN EDUCATED ON THE IMPORTANCE OF DRINKING FLUIDS. PT TOOK A SIP OF WATER, BUT THEN SAID, I CAN'T . PT APPEARS PREOCCUPIED WITH THOUGHT BLOCKING. PT PT RAPIDLY MOVING EYES AROUND THE ROOM OR STARRING AT THE MCDANIEL/CEILING. PT REMAINS DIFFICULT TO ENGAGE
[2020-07-28 15:34] LABS: D Dimer 306 NG/ML
[2020-07-28 15:56] LABS: Alanine Aminotransferase 25 U/L (0-40); Albumin Level 3.8 g/dL (3.5-5.0); Alkaline Phosphatase 69 U/L (39-117); Anion Gap 18 (12-20); Aspartate Amino Transferase 21 U/L (5-37); Bilirubin Total 0.7 mg/dL (0.0-1.0); Blood Urea Nitrogen 18 mg/dL (9-16); Calcium 9.2 mg/dL (8.4-10.2); Carbon Dioxide 29 mmol/L (22-29); Chloride 96 mmol/L (96-108); Creatinine Clr Calc Pharmacy 138.2; Estimated Glomerular Filt Rate > 60; Glucose Random 104 mg/dL (60-115); Potassium 4.1 mmol/L (3.3-5.1); Sodium 139 mmol/L (135-145); Total Protein 6.8 g/dL (6.5-8.0)
[2020-07-28 15:57] LABS: B Type Natriuretic Peptide 11 pg/mL (<100)
[2020-07-28 17:06] LABS: Glucose, Whole Blood 102 mg/dL (60-115)
[2020-07-28] MEDS: Furosemide 40 MG TABLET PO (17:22)
[2020-07-28] MEDS: metFORMIN HCl 1,000 MG TABLET 1000 MG PO (17:22)
[2020-07-28 17:53] VITALS: BP 128/91; PULSE 109; RESP 18; TEMP 36.7; O2SAT 94
[2020-07-28] MEDS: QUEtiapine Fumarate 50 MG TABLET PO (20:54)
[2020-07-28] MEDS: Cholecalciferol (Vitamin D3) 25 MCG TABLET 50 MCG PO (20:54)
[2020-07-28] MEDS: Atorvastatin Calcium 80 MG TABLET PO (20:54)
[2020-07-28] MEDS: Docusate Sodium 100 MG CAPSULE PO (20:55)
[2020-07-28] MEDS: Tamsulosin HCL 0.4 MG CAPSULE PO (20:55)
[2020-07-28] MEDS: Mineral Oil/Petrolatum,White 106 GM Tube 1 APPL TOPICAL (21:10)
[2020-07-29] MEDS: QUEtiapine Fumarate 25 MG TABLET PO (01:31)
[2020-07-29] MEDS: traZODone HCL 50 MG TABLET PO (01:31)
[2020-07-29] MEDS: hydrOXYzine HCL 25 MG TABLET PO (01:31)
[2020-07-29 03:35] VITALS: BP 122/59; PULSE 131; RESP 18; TEMP 36.3; O2SAT 96
--- NOTE | 2020-07-29 04:37 | PM.EVENT ---
Event Note Date of Service: 07/29/20 Event Note: Fall: Reportedly patient had a fall. Patient reports that he tried to rule on the bed and fell off from the bed. Denies any head strike or loss of consciousness. Physical examination is benign. Spoke to the RN per fall precautions.
--- NOTE | 2020-07-29 04:58 | PC.NURSE ---
Addendum entered by Isaura Castrejon RN 07/29/20 05:04: Unable to get orthostatic blood pressure done as patient is so unstable to tolerate it. Original Note: [id number] patient rolling out of bed, fell between wall and bed with witnessed by 1-1 sitter. No appearent injuries, VSs stable except elevated. Patient denied pain. Neuro at baseline. Supervior was notified. Patient was seen by hospital list by 0430. No new order at this time. Patient assisted into medical bed with side rails 1-[address] Post fall hudle completed. Patient's high fall risk. Continue to monitor.
[2020-07-29 06:05] LABS: Glucose, Whole Blood 132 mg/dL (60-115)
[2020-07-29 08:08] LABS: MANUAL DIFF FLAG NO
[2020-07-29 08:18] LABS: Basophils Percent Auto 0.3 % (0-2); Eosinophils Absolute Auto 0.1 X10*3/uL (0.0-0.4); Eosinophils Percent Auto 0.4 % (0-4); Hematocrit 38.8 % (42-52); Hemoglobin 12.5 g/dl (14.0-18.0); Imm Gran Abs Auto 0.06 X10*3/uL (0.00-0.03); Imm Gran Pct Auto 0.5 % (0.0-0.4); Lymphocytes Absolute Auto 2.4 X10*3/uL (1.2-4.9); Lymphocytes Percent Auto 20.5 % (20-40); Mean Corpuscular HGB Conc 32.2 g/dl (31.0-36.0); Mean Corpuscular Hemoglobin 25.5 pg (27.0-33.0); Mean Platelet Volume 10.1 fL (9.4-12.4); Monocytes Absolute Auto 1.1 X10*3/uL (0.1-1.2); Monocytes Percent Auto 9.1 % (2-11); Neutrophils Percent Auto 69.2 % (45-73); Platelet Count 320 X10*3/uL (160-400); Red Blood Count 4.91 X10*6/uL (4.60-5.80); Red Cell Distribution Width 15.5 % (11.0-16.0); White Blood Count 11.5 X10*3/uL (4.8-10.8)
[2020-07-29 09:12] VITALS: BP 122/60; PULSE 120
[2020-07-29] MEDS: Finasteride 5 MG TABLET PO (09:12)
[2020-07-29] MEDS: Metoprolol Succinate ER 25 MG TAB.ER.24H 75 MG PO (09:12)
[2020-07-29 09:13] VITALS: BP 122/60; PULSE 120
[2020-07-29] MEDS: Aspirin Enteric Coated 81 MG TABLET.DR PO (09:13)
[2020-07-29] MEDS: lisinopriL 2.5 MG TABLET PO (09:13)
[2020-07-29] MEDS: QUEtiapine Fumarate 50 MG TABLET PO ×2 (09:13→20:48)
[2020-07-29] MEDS: metFORMIN HCl 1,000 MG TABLET 1000 MG PO ×2 (09:13→16:39)
[2020-07-29] MEDS: Clopidogrel Bisulfate 75 MG TABLET PO (09:14)
[2020-07-29] MEDS: Furosemide 40 MG TABLET PO ×2 (09:14→16:26)
[2020-07-29] MEDS: Omeprazole 20 MG CAPSULE.DR PO (09:14)
[2020-07-29] MEDS: cloZAPine 25 MG TABLET PO (09:16)
[2020-07-29 11:57] VITALS: BMI 41.1
[2020-07-29] MEDS: Enoxaparin Sodium 40 MG/0.4 ML SYRINGE SUBCUT (16:25)
[2020-07-29 16:35] VITALS: BP 108/58; PULSE 111; TEMP 36.5
[2020-07-29 17:21] LABS: NT-proBNP 93 pg/mL
--- NOTE | 2020-07-29 17:33 | P.PNPSI_ITS ---
Subjective Subjective Date of Service: 07/29/20 Reason For Visit: psychosis Interim History: Juan has been sitting in chair, better than lying in bed naked. He agreed to wear casual clothing and staff help him clean up. Last night he had episode of rolling over, from bed to floor reporting voices telling him to hurt himself. He continues to report that voices are telling him to not take his medications because they are not good for me. We discussed his multiple medical medications and need to prevent further complications if he stops medications, however, pt does not appear to have capacity or understanding at this time to appreciate risks versus benefits. He denies SI/HI. He has been sitting with sitter, lying forward to breath better given his HF hx. Pt's brother, Duc who is pt's HCP- agreed with plan to start Levonox. Duc was updated on pt's current presentation, which is significantly decompensated from baseline. At baseline, pt is more outgoing, interacts more with others, ambulates, takes medications. Review of Systems Review of Systems Constitutional: No Fever, No Chills ENT/Mouth: No Ear Pain, No Nasal Congestion, No sore throat Eyes: No Eye Pain, No Swelling, No Redness Cardiovascular: No Chest Pain, No SOB Respiratory: No Cough, No Sputum, No Dyspnea Gastrointestinal: No Nausea, No Vomiting, No Diarrhea, No Hematochezia, No Melena Genitourinary: No Dysuria, No Urinary Frequency, No Hematuria Musculoskeletal: No Myalgias Skin: No Skin Lesions, No rash; legs with edema bilat and light pink; not warm or painful. abraisoons on knee - no sign of infection Neuro: No Weakness, No Numbness, No Paresthesias, No Dizziness, No Headache Psych: Refusal of [place] orders medications, No Anxiety, no Depression, no SI/HI Heme/Lymph: No Lymphadenopathy Endocrine: No Polyuria, No Polydipsia Yes all other systems are reviewed and are negative and Unobtainable due to mental status Gastrointestinal: Reports abdominal pain and Reports constipation Mental Status Exam Mental Status Exam Narrative: Appearance: disheveled, restless Behavior: restless, guarded, dismissive Psychomotor: significant involuntary bilateral upper extremity movement Speech: mumbles at times, significant delayed response rate, soft tone, minimally spontaneous TP: single word answers TC:poverty of thought Mood: okay Affect:restless, anxious, irritable SI:denies HI:denies AH/VH:appears internally preoccupied Delusions:guarded Insight/judgment:impaired Memory/cog: alert, oriented to month, year not to situation nor place. judgement: poor-fair Diagnostics Vital Signs (24Hr): Vital Signs - 24 hr 07/28/20 17:53 07/29/20 03:35 07/29/20 09:12 Temperature 98.0 F 97.3 F Pulse Rate 109 H 131 H 120 H Respiratory Rate 18 18 Blood Pressure 128/91 H 122/59 L 122/60 Pulse Oximetry 94 96 07/29/20 09:13 07/29/20 16:35 Temperature 97.7 F Pulse Rate 120 H 111 H Respiratory Rate Blood Pressure 122/60 108/58 L Pulse Oximetry Body Mass Index 41.1 Labs Results: 07/29/20 08:03 07/28/20 15:18 Labs: Laboratory Results - last 48 hr 07/27/20 07/28/20 07/28/20 16:44 06:39 15:18 WBC 9.9 RBC 4.91 Hgb 12.5 L Hct 38.7 L MCV 78.8 L MCH 25.5 L MCHC 32.3 RDW 15.7 Plt Count 337 MPV 9.6 Immature Gran % (Auto) 0.5 H Neut % (Auto) 59.8 Lymph % (Auto) 26.8 [place] % (Auto) 11.1 H Eos % (Auto) 1.5 Baso % (Auto) 0.3 Lymph # (Auto) 2.7 [place] # (Auto) 1.1 Eos # (Auto) 0.2 Baso # (Auto) 0.0 Abs Immat Gran (auto) 0.05 H Absolute Neuts (auto) 5.9 Absolute Nucleated RBC 0.000 Nucleated RBC % (auto) 0.0 D-Dimer Sodium Potassium Chloride Carbon Dioxide Anion Gap BUN Creatinine Estim Creat Clear Calc Estimated GFR POC Glucose 97 116 H Random Glucose Calcium Total Bilirubin AST ALT Alkaline Phosphatase B-Natriuretic Peptide Total Protein NT-Pro-B Natriuret Pep Albumin 07/28/20 07/28/20 07/28/20 15:18 15:18 15:18 WBC RBC Hgb Hct MCV MCH MCHC RDW Plt Count MPV Immature Gran % (Auto) Neut % (Auto) Lymph % (Auto) [place] % (Auto) Eos % (Auto) Baso % (Auto) Lymph # (Auto) [place] # (Auto) Eos # (Auto) Baso # (Auto) Abs Immat Gran (auto) Absolute Neuts (auto) Absolute Nucleated RBC Nucleated RBC % (auto) D-Dimer Sodium 139 Potassium 4.1 Chloride 96 Carbon Dioxide 29 Anion Gap 18 BUN 18 H D Creatinine 1.02 Estim Creat Clear Calc 138.2 Estimated GFR > 60 POC Glucose Random Glucose 104 Calcium 9.2 Total Bilirubin 0.7 AST 21 ALT 25 Alkaline Phosphatase 69 B-Natriuretic Peptide 11 Total Protein 6.8 NT-Pro-B Natriuret Pep 93 Albumin 3.8 07/28/20 07/28/20 07/29/20 15:18 16:55 05:27 WBC RBC Hgb Hct MCV MCH MCHC RDW Plt Count MPV Immature Gran % (Auto) Neut % (Auto) Lymph % (Auto) [place] % (Auto) Eos % (Auto) Baso % (Auto) Lymph # (Auto) [place] # (Auto) Eos # (Auto) Baso # (Auto) Abs Immat Gran (auto) Absolute Neuts (auto) Absolute Nucleated RBC Nucleated RBC % (auto) D-Dimer 306 Sodium Potassium Chloride Carbon Dioxide Anion Gap BUN Creatinine Estim Creat Clear Calc Estimated GFR POC Glucose 102 132 H Random Glucose Calcium Total Bilirubin AST ALT Alkaline Phosphatase B-Natriuretic Peptide Total Protein NT-Pro-B Natriuret Pep Albumin 07/29/20 08:03 WBC 11.5 H RBC 4.91 Hgb 12.5 L Hct 38.8 L MCV 79.0 L MCH 25.5 L MCHC 32.2 RDW 15.5 Plt Count 320 MPV 10.1 Immature Gran % (Auto) 0.5 H Neut % (Auto) 69.2 Lymph % (Auto) 20.5 [place] % (Auto) 9.1 Eos % (Auto) 0.4 Baso % (Auto) 0.3 Lymph # (Auto) 2.4 [place] # (Auto) 1.1 Eos # (Auto) 0.1 Baso # (Auto) 0.0 Abs Immat Gran (auto) 0.06 H Absolute Neuts (auto) 8.0 Absolute Nucleated RBC 0.000 Nucleated RBC % (auto) 0.0 D-Dimer Sodium Potassium Chloride Carbon Dioxide Anion Gap BUN Creatinine Estim Creat Clear Calc Estimated GFR POC Glucose Random Glucose Calcium Total Bilirubin AST ALT Alkaline Phosphatase B-Natriuretic Peptide Total Protein NT-Pro-B Natriuret Pep Albumin Imaging Radiology Impressions: ITS Impressions KUB X-Ray 07/22/20 17:13 IMPRESSION: Moderate volume of stool scattered in colon. No bowel obstruction. Medications Medications Current Medications Generic Name Dose Route Start Last Admin Trade Name Freq PRN Reason Stop Dose Admin Acetaminophen 650 mg 07/23/20 21:13 07/24/20 09:57 Acetaminophen 325 Mg Tablet PO 650 mg Q6H PRN Administration Headache/Pain Mild Scale (1-3) Al Hydroxide/Mg Hydroxide 30 ml 07/23/20 21:13 Magnesium Hydrox/Alum Hydrox 30 Ml Oral.Susp PO Q6H PRN Heartburn/Nausea Aspirin 81 mg 07/25/20 09:00 07/29/20 09:13 Aspirin Enteric Coated 81 Mg Tablet.Dr PO 81 mg DAILY AMBROCIO Administration Atorvastatin Calcium 80 mg 07/23/20 21:00 07/28/20 20:54 Atorvastatin Calcium 80 Mg Tablet PO 80 mg BEDTIME [facility]OCIO Administration Clopidogrel Bisulfate 75 mg 07/23/20 17:00 07/29/20 09:14 Clopidogrel Bisulfate 75 Mg Tablet PO 75 mg DAILY [facility] Administration Clozapine 25 mg 07/28/20 09:00 07/29/20 09:16 Clozapine 25 Mg Tablet PO 25 mg DAILY [facility] Administration Docusate Sodium 100 mg 07/23/20 21:00 07/28/20 20:55 Docusate Sodium 100 Mg Capsule PO 100 mg BEDTIME AM[facility]OCIO Administration Enoxaparin Sodium 40 mg 07/29/20 15:15 07/29/20 16:25 Enoxaparin Sodium 40 Mg/0.4 Ml Syringe SUBCUT 40 mg Q24H AMBROCIO Administration Finasteride 5 mg 07/23/20 17:00 07/29/20 09:12 Finasteride 5 Mg Tablet PO 5 mg DAILY [facility] Administration Furosemide 40 mg 07/25/20 17:00 07/29/20 16:26 Furosemide 40 Mg Tablet PO 40 mg BIDWM AMBROCIO Administration Protocol Hydroxyzine HCl 25 mg 07/23/20 21:13 07/29/20 01:31 Hydroxyzine Hcl 25 Mg Tablet PO 25 mg BEDTIME PRN Administration Anxiety Lisinopril 2.5 mg 07/23/20 17:00 07/29/20 09:13 Lisinopril 2.5 Mg Tablet PO 2.5 mg DAILY [facility] Administration Protocol Loperamide HCl 2 mg 07/24/20 15:43 07/24/20 15:54 Loperamide Hcl 2 Mg Capsule PO 2 mg Q4H PRN Administration Diarrhea Magnesium Hydroxide 30 ml 07/23/20 21:13 Milk Of Magnesia 30 Ml Oral.Susp PO DAILY PRN Constipation Metformin HCl 1,000 mg 07/24/20 08:00 07/29/20 16:39 Metformin Hcl 1,000 Mg Tablet PO 1,000 mg BIDWM AMBROCIO Administration Metoprolol Succinate 75 mg 07/23/20 17:00 07/29/20 09:12 Metoprolol Succinate Er 25 Mg Tab.Er.24h PO 75 mg DAILY [facility] Administration Protocol Multi-Ingred Cream/Lotion/Oil/Oint 1 appl 07/24/20 21:00 07/29/20 09:40 Mineral Oil/Petrolatum,White 106 Gm Tube TOPICAL Not Given BID [facility] Nystatin 1 appl 07/26/20 19:25 07/29/20 09:40 Nystatin Cream 15 Gm Tube TOPICAL Not Given DAILY [facility] Protocol Omeprazole 20 mg 07/24/20 06:30 07/29/20 09:14 Omeprazole 20 Mg Capsule.Dr PO 20 mg DAILY@0630 AM[facility]IO Administration Quetiapine Fumarate 50 mg 07/26/20 15:00 07/29/20 09:13 Quetiapine Fumarate 50 Mg Tablet PO 50 mg BID [facility]BROCIO Administration Quetiapine Fumarate 25 mg 07/26/20 14:28 07/29/20 01:31 Quetiapine Fumarate 25 Mg Tablet PO 25 mg BID PRN Administration anxiety/restlessness Tamsulosin HCl 0.4 mg 07/25/20 21:00 07/28/20 20:55 Tamsulosin Hcl 0.4 Mg Capsule PO 0.4 mg BEDTIME [facility] Administration Trazodone HCl 50 mg 07/23/20 21:13 07/29/20 01:31 Trazodone Hcl 50 Mg Tablet PO 50 mg BEDTIME PRN Administration Insomnia Vitamin D 50 mcg 07/23/20 21:00 07/28/20 20:54 Cholecalciferol (Vitamin D3) 25 Mcg Tablet PO 50 mcg BEDTIME [facility]BROCIO Administration Allergies Allergies Allergy/AdvReac Type Severity Reaction Status Date / Time No Known Allergies Allergy Verified 07/21/20 16:39 Assessment & Plan Assessment & Plan (1) Schizophrenia, paranoid, subchronic with acute exacerbation: Status: Acute Code(s): F20.0 - Paranoid schizophrenia Assessment and Plan: 1. continue to encourage PO meds 2. Clozaril changed to am dosing to see if he will take in am as he has been accepting am meds. 3. Petition to amend [facility] was completed on 07/28 to include antipsychotics that include antipsychotics with IM option. 4. Due to pt not ambulating and increase risk for DVT, will start Levonox 40mg SC daily- after consulting with Dr. Sussy Fields 5. Close monitoring of fluid overload as pt declines taking lasix, may have to do IV. Pt currently does not have capacity to make medical decisions. HCP is brother. (2) Heart failure: Status: Acute Code(s): I50.9 - Heart failure, unspecified Assessment and Plan: Continue cardiology recommendations: Per cardiology-->Patient admitted for acute exacerbation of sschizophrenia and refusing to take his medications. He has prior history of reported heart failure. He is currently on Lasix therapy. Clinically today appears to have no symptoms and no signs of congestive heart failure appears to be euvolemic. Continue current medical regimen. Blood pressure is well optimized. He is currently on dual antiplatelet therapy, he is not able to give further history as to why this is so. There is no reported recent intervention. However he does have history of peripheral vascular disease. For now will continue the same. This will need to be addressed as outpatient through his primary care physician's office. No further cardiac workup is indicated at this point time. Patient stable from cardiac perspective. Will sign of the case at this point in time Greater than 50% of the session was spent on counseling and/or coordination of care Reason for contiued inpatient stay Substantial Risk for: harm to self and inability to function
[2020-07-29] MEDS: Mineral Oil/Petrolatum,White 106 GM Tube 1 APPL TOPICAL (20:29)
[2020-07-29] MEDS: Cholecalciferol (Vitamin D3) 25 MCG TABLET 50 MCG PO (20:48)
[2020-07-29] MEDS: Docusate Sodium 100 MG CAPSULE PO (20:48)
[2020-07-29] MEDS: Tamsulosin HCL 0.4 MG CAPSULE PO (20:48)
[2020-07-29] MEDS: Atorvastatin Calcium 80 MG TABLET PO (20:48)
[2020-07-29 22:55] LABS: Glucose, Whole Blood 105 mg/dL (60-115)
[2020-07-30 06:00] VITALS: BP 119/61; PULSE 105; RESP 16; TEMP 36.4; O2SAT 95
[2020-07-30 06:04] LABS: Glucose, Whole Blood 123 mg/dL (60-115)
--- NOTE | 2020-07-30 10:17 | PC.NURSE ---
Pt refused AM medications, went back to the room three times to attempt, pt continued to refuse. Pt refused 10:00am blood glucose level.
[2020-07-30] MEDS: Enoxaparin Sodium 40 MG/0.4 ML SYRINGE SUBCUT (16:11)
[2020-07-30] MEDS: Furosemide 40 MG TABLET PO (16:44)
[2020-07-30] MEDS: metFORMIN HCl 1,000 MG TABLET 1000 MG PO (16:44)
[2020-07-30 16:47] VITALS: BP 124/61; PULSE 99; TEMP 36.9
[2020-07-30 17:05] LABS: Glucose, Whole Blood 99 mg/dL (60-115)
[2020-07-30] MEDS: Atorvastatin Calcium 80 MG TABLET PO (20:56)
[2020-07-30] MEDS: Tamsulosin HCL 0.4 MG CAPSULE PO (20:57)
[2020-07-30] MEDS: Cholecalciferol (Vitamin D3) 25 MCG TABLET 50 MCG PO (20:57)
[2020-07-30] MEDS: Docusate Sodium 100 MG CAPSULE PO (20:57)
[2020-07-31 05:49] LABS: Glucose, Whole Blood 118 mg/dL (60-115)
[2020-07-31 06:00] VITALS: BP 134/60; PULSE 104; RESP 20; TEMP 36.6; O2SAT 96
[2020-07-31 08:21] VITALS: BP 130/62; PULSE 95
[2020-07-31] MEDS: Metoprolol Succinate ER 25 MG TAB.ER.24H 75 MG PO (08:21)
[2020-07-31] MEDS: Clopidogrel Bisulfate 75 MG TABLET PO (08:21)
[2020-07-31] MEDS: Finasteride 5 MG TABLET PO (08:21)
[2020-07-31] MEDS: cloZAPine 25 MG TABLET 50 MG PO (08:22)
[2020-07-31] MEDS: Omeprazole 20 MG CAPSULE.DR PO (08:22)
[2020-07-31] MEDS: Aspirin Enteric Coated 81 MG TABLET.DR PO (08:22)
[2020-07-31] MEDS: metFORMIN HCl 1,000 MG TABLET 1000 MG PO ×2 (08:22→16:23)
[2020-07-31 08:23] VITALS: BP 130/62; PULSE 95
[2020-07-31] MEDS: lisinopriL 2.5 MG TABLET PO (08:23)
[2020-07-31] MEDS: Furosemide 40 MG TABLET PO ×2 (08:23→16:23)
[2020-07-31] MEDS: Enoxaparin Sodium 40 MG/0.4 ML SYRINGE SUBCUT (16:22)
[2020-07-31 16:32] VITALS: BP 121/58; PULSE 98; TEMP 36.4
--- NOTE | 2020-07-31 17:21 | HO.PSYCHPN ---
Subjective Subjective Date of Service: 08/01/20 Reason For Visit: psychosis Interim History: Juan has been sitting in chair. He continues to report that he is hearing voices telling him not to take medications. He reports at times he does what they say, others he ignores them. He denies SI/HI. He continues to intermittently denied medications including medical and clozaril. Pt's brother, Duc who is pt's HCP- agreed with plan to start Levonox. Duc was updated on pt's current presentation, which is significantly decompensated from baseline. At baseline, pt is more outgoing, interacts more with others, ambulates, takes medications. Review of Systems Review of Systems Constitutional: No Fever, No Chills ENT/Mouth: No Ear Pain, No Nasal Congestion, No sore throat Eyes: No Eye Pain, No Swelling, No Redness Cardiovascular: No Chest Pain, No SOB Respiratory: No Cough, No Sputum, No Dyspnea Gastrointestinal: No Nausea, No Vomiting, No Diarrhea, No Hematochezia, No Melena Genitourinary: No Dysuria, No Urinary Frequency, No Hematuria Musculoskeletal: No Myalgias Skin: No Skin Lesions, No rash; legs with edema bilat and light pink; not warm or painful. abraisoons on knee - no sign of infection Neuro: No Weakness, No Numbness, No Paresthesias, No Dizziness, No Headache Psych: Refusal of [place] orders medications, No Anxiety, no Depression, no SI/HI Heme/Lymph: No Lymphadenopathy Endocrine: No Polyuria, No Polydipsia Yes all other systems are reviewed and are negative and Unobtainable due to mental status Gastrointestinal: Reports abdominal pain and Reports constipation Mental Status Exam Mental Status Exam Narrative: Appearance: disheveled, restless Behavior: restless, guarded, dismissive Psychomotor: significant involuntary bilateral upper extremity movement Speech: mumbles at times, significant delayed response rate, soft tone, minimally spontaneous TP: single word answers TC:poverty of thought Mood: okay Affect:restless, anxious, irritable SI:denies HI:denies AH/VH:appears internally preoccupied Delusions:guarded Insight/judgment:impaired Memory/cog: alert, oriented to month, year not to situation nor place. judgement: poor-fair Diagnostics Vital Signs (24Hr): Vital Signs - 24 hr 07/31/20 06:00 07/31/20 08:21 07/31/20 08:23 Temperature 97.8 F Pulse Rate 104 H 95 95 Respiratory Rate 20 Blood Pressure 134/60 130/62 130/62 Pulse Oximetry 96 07/31/20 16:32 Temperature 97.5 F Pulse Rate 98 Respiratory Rate Blood Pressure 121/58 L Pulse Oximetry Body Mass Index 41.1 Labs Results: 07/29/20 08:03 07/28/20 15:18 Labs: Laboratory Results - last 48 hr 07/28/20 07/29/20 07/30/20 15:18 22:51 05:39 POC Glucose 105 123 H NT-Pro-B Natriuret Pep 93 07/30/20 07/31/20 16:43 05:31 POC Glucose 99 118 H NT-Pro-B Natriuret Pep Imaging Radiology Impressions: ITS Impressions KUB X-Ray 07/22/20 17:13 IMPRESSION: Moderate volume of stool scattered in colon. No bowel obstruction. Medications Medications Current Medications Generic Name Dose Route Start Last Admin Trade Name [place] PRN Reason Stop Dose Admin Acetaminophen 650 mg 07/23/20 21:13 07/24/20 09:57 Acetaminophen 325 Mg Tablet PO 650 mg Q6H PRN Administration Headache/Pain Mild Scale (1-3) Al Hydroxide/Mg Hydroxide 30 ml 07/23/20 21:13 Magnesium Hydrox/Alum Hydrox 30 Ml Oral.Susp PO Q6H PRN Heartburn/Nausea Aspirin 81 mg 07/25/20 09:00 07/31/20 08:22 Aspirin Enteric Coated 81 Mg Tablet.Dr PO 81 mg DAILY AMBROCIO Administration Atorvastatin Calcium 80 mg 07/23/20 21:00 07/30/20 20:56 Atorvastatin Calcium 80 Mg Tablet PO 80 mg BEDTIME AMBROCIO Administration Clopidogrel Bisulfate 75 mg 07/23/20 17:00 07/31/20 08:21 Clopidogrel Bisulfate 75 Mg Tablet PO 75 mg DAILY AMBROCIO Administration Clozapine 50 mg 07/31/20 09:00 07/31/20 08:22 Clozapine 25 Mg Tablet PO 50 mg DAILY AMBROCIO Administration Enoxaparin Sodium 40 mg 07/29/20 15:15 07/31/20 16:22 Enoxaparin Sodium 40 Mg/0.4 Ml Syringe SUBCUT 40 mg Q24H AMBROCIO Administration Finasteride 5 mg 07/23/20 17:00 07/31/20 08:21 Finasteride 5 Mg Tablet PO 5 mg DAILY AMBROCIO Administration Furosemide 40 mg 07/25/20 17:00 07/31/20 16:23 Furosemide 40 Mg Tablet PO 40 mg BIDWM AMBROCIO Administration Protocol Hydroxyzine HCl 25 mg 07/23/20 21:13 07/29/20 01:31 Hydroxyzine Hcl 25 Mg Tablet PO 25 mg BEDTIME PRN Administration Anxiety Lisinopril 2.5 mg 07/23/20 17:00 07/31/20 08:23 Lisinopril 2.5 Mg Tablet PO 2.5 mg DAILY AMBROCIO Administration Protocol Loperamide HCl 2 mg 07/24/20 15:43 07/24/20 15:54 Loperamide Hcl 2 Mg Capsule PO 2 mg Q4H PRN Administration Diarrhea Magnesium Hydroxide 30 ml 07/23/20 21:13 Milk Of Magnesia 30 Ml Oral.Susp PO DAILY PRN Constipation Metformin HCl 1,000 mg 07/24/20 08:00 07/31/20 16:23 Metformin Hcl 1,000 Mg Tablet PO 1,000 mg BIDWM AMBROCIO Administration Metoprolol Succinate 75 mg 07/23/20 17:00 07/31/20 08:21 Metoprolol Succinate Er 25 Mg Tab.Er.24h PO 75 mg DAILY [facility] Administration Protocol Multi-Ingred Cream/Lotion/Oil/Oint 1 appl 07/24/20 21:00 07/31/20 14:42 Mineral Oil/Petrolatum,White 106 Gm Tube TOPICAL Not Given BID AMBROCIO Nystatin 1 appl 07/26/20 19:25 07/31/20 14:44 Nystatin Cream 15 Gm Tube TOPICAL Not Given DAILY [facility] Protocol Omeprazole 20 mg 07/24/20 06:30 07/31/20 08:22 Omeprazole 20 Mg Capsule. PO 20 mg DAILY@0630 AMBR[facility]IO Administration Tamsulosin HCl 0.4 mg 07/25/20 21:00 07/30/20 20:57 Tamsulosin Hcl 0.4 Mg Capsule PO 0.4 mg BEDTIME AMBROCIO Administration Trazodone HCl 50 mg 07/23/20 21:13 07/29/20 01:31 Trazodone Hcl 50 Mg Tablet PO 50 mg BEDTIME PRN Administration Insomnia Vitamin D 50 mcg 07/23/20 21:00 07/30/20 20:57 Cholecalciferol (Vitamin D3) 25 Mcg Tablet PO 50 mcg BEDTIME AMBROCIO Administration Allergies Allergies Allergy/AdvReac Type Severity Reaction Status Date / Time No Known Allergies Allergy Verified 07/21/20 16:39 Assessment & Plan Assessment & Plan (1) Schizophrenia, paranoid, subchronic with acute exacerbation: Status: Acute Code(s): F20.0 - Paranoid schizophrenia Assessment and Plan: 1. continue to encourage PO meds 2. Clozaril changed to am dosing to see if he will take in am as he has been accepting am meds. 3. Petition to amend [facility] was completed on 07/28 to include antipsychotics that include antipsychotics with IM option. 4. Due to pt not ambulating and increase risk for DVT, will start Levonox 40mg SC daily- after consulting with Dr. Sussy Fields 5. Close monitoring of fluid overload as pt declines taking lasix, may have to do IV. Pt currently does not have capacity to make medical decisions. HCP is brother. (2) Heart failure: Status: Acute Code(s): I50.9 - Heart failure, unspecified Assessment and Plan: Continue cardiology recommendations: Per cardiology-->Patient admitted for acute exacerbation of sschizophrenia and refusing to take his medications. He has prior history of reported heart failure. He is currently on Lasix therapy. Clinically today appears to have no symptoms and no signs of congestive heart failure appears to be euvolemic. Continue current medical regimen. Blood pressure is well optimized. He is currently on dual antiplatelet therapy, he is not able to give further history as to why this is so. There is no reported recent intervention. However he does have history of peripheral vascular disease. For now will continue the same. This will need to be addressed as outpatient through his primary care physician's office. No further cardiac workup is indicated at this point time. Patient stable from cardiac perspective. Will sign of the case at this point in time Greater than 50% of the session was spent on counseling and/or coordination of care Reason for contiued inpatient stay Substantial Risk for: inability to function
[2020-07-31] MEDS: Cholecalciferol (Vitamin D3) 25 MCG TABLET 50 MCG PO (20:13)
[2020-07-31] MEDS: Atorvastatin Calcium 80 MG TABLET PO (20:14)
[2020-07-31] MEDS: Mineral Oil/Petrolatum,White 106 GM Tube 1 APPL TOPICAL (20:14)
[2020-07-31] MEDS: Tamsulosin HCL 0.4 MG CAPSULE PO (20:14)
[2020-07-31 22:35] LABS: Glucose, Whole Blood 211 mg/dL (60-115)
[2020-08-01 06:00] VITALS: BP 108/52; PULSE 88; RESP 18; TEMP 37.1; O2SAT 100
[2020-08-01 08:19] VITALS: BP 110/55; PULSE 88
[2020-08-01] MEDS: Metoprolol Succinate ER 25 MG TAB.ER.24H 75 MG PO (08:19)
[2020-08-01 08:21] VITALS: BP 110/55; PULSE 88
[2020-08-01] MEDS: lisinopriL 2.5 MG TABLET PO (08:21)
[2020-08-01] MEDS: cloZAPine 25 MG TABLET 50 MG PO (08:21)
[2020-08-01] MEDS: Clopidogrel Bisulfate 75 MG TABLET PO (08:22)
[2020-08-01] MEDS: Aspirin Enteric Coated 81 MG TABLET.DR PO (08:23)
[2020-08-01] MEDS: Furosemide 40 MG TABLET PO (08:23)
[2020-08-01] MEDS: metFORMIN HCl 1,000 MG TABLET 1000 MG PO (08:23)
[2020-08-01] MEDS: Omeprazole 20 MG CAPSULE.DR PO (08:24)
[2020-08-01] MEDS: Mineral Oil/Petrolatum,White 106 GM Tube 1 APPL TOPICAL (08:25)
[2020-08-01] MEDS: Finasteride 5 MG TABLET PO (08:25)
[2020-08-01] MEDS: Nystatin Cream 15 GM TUBE 1 APPL TOPICAL (08:25)
[2020-08-01] MEDS: Enoxaparin Sodium 40 MG/0.4 ML SYRINGE SUBCUT (15:16)
[2020-08-01 17:15] VITALS: BP 95/51; PULSE 81; TEMP 36.8
--- NOTE | 2020-08-01 20:27 | P.PNPSI_ITS ---
Subjective Subjective Date of Service: 08/01/20 Reason For Visit: psychosis Interim History: Juan had slightly brighter affect in the morning greeting staff and initiating more interactions with staff. Later in day, he rolled over on floor reporting voices telling him to do so. He reports voices telling him not to take medications, and although he tries sometimes not to listen to them, s ometimes he just do what they say. He continues to intermittently denied medical and and psych medications. Pt's brother, Duc who is pt's HCP- agreed with plan to start Levonox. Duc was updated on pt's current presentation, which is significantly decompensated from baseline. At baseline, pt is more outgoing, interacts more with others, ambulates, takes medications. Review of Systems Review of Systems Constitutional: No Fever, No Chills ENT/Mouth: No Ear Pain, No Nasal Congestion, No sore throat Eyes: No Eye Pain, No Swelling, No Redness Cardiovascular: No Chest Pain, No SOB Respiratory: No Cough, No Sputum, No Dyspnea Gastrointestinal: No Nausea, No Vomiting, No Diarrhea, No Hematochezia, No Melena Genitourinary: No Dysuria, No Urinary Frequency, No Hematuria Musculoskeletal: No Myalgias Skin: No Skin Lesions, No rash; legs with edema bilat and light pink; not warm or painful. abraisoons on knee - no sign of infection Neuro: No Weakness, No Numbness, No Paresthesias, No Dizziness, No Headache Psych: Refusal of [place] orders medications, No Anxiety, no Depression, no SI/HI Heme/Lymph: No Lymphadenopathy Endocrine: No Polyuria, No Polydipsia Yes all other systems are reviewed and are negative and Unobtainable due to mental status Gastrointestinal: Reports abdominal pain and Reports constipation Mental Status Exam Mental Status Exam Narrative: Appearance: disheveled, restless Behavior: restless, guarded, dismissive Psychomotor: significant involuntary bilateral upper extremity movement Speech: mumbles at times, significant delayed response rate, soft tone, minimally spontaneous TP: single word answers TC:poverty of thought Mood: okay Affect:restless, anxious, irritable SI:denies HI:denies AH/VH:appears internally preoccupied Delusions:guarded Insight/judgment:impaired Memory/cog: alert, oriented to month, year not to situation nor place. judgement: poor-fair Diagnostics Vital Signs (24Hr): Vital Signs - 24 hr 08/01/20 06:00 08/01/20 08:19 08/01/20 08:21 Temperature 98.7 F Pulse Rate 88 88 88 Respiratory Rate 18 Blood Pressure 108/52 L 110/55 L 110/55 L Pulse Oximetry 100 Body Mass Index 41.1 Labs Results: 07/29/20 08:03 07/28/20 15:18 Labs: Laboratory Results - last 48 hr 07/31/20 07/31/20 05:31 22:29 POC Glucose 118 H 211 H Imaging Radiology Impressions: ITS Impressions KUB X-Ray 07/22/20 17:13 IMPRESSION: Moderate volume of stool scattered in colon. No bowel obstruction. Medications Medications Current Medications Generic Name Dose Route Start Last Admin Trade Name Freq PRN Reason Stop Dose Admin Acetaminophen 650 mg 07/23/20 21:13 07/24/20 09:57 Acetaminophen 325 Mg Tablet PO 650 mg Q6H PRN Administration Headache/Pain Mild Scale (1-3) Al Hydroxide/Mg Hydroxide 30 ml 07/23/20 21:13 Magnesium Hydrox/Alum Hydrox 30 Ml Oral.Susp PO Q6H PRN Heartburn/Nausea Aspirin 81 mg 07/25/20 09:00 08/01/20 08:23 Aspirin Enteric Coated 81 Mg Tablet.Dr PO 81 mg DAILY [facility] Administration Atorvastatin Calcium 80 mg 07/23/20 21:00 07/31/20 20:14 Atorvastatin Calcium 80 Mg Tablet PO 80 mg BEDTIME [facility] Administration Clopidogrel Bisulfate 75 mg 07/23/20 17:00 08/01/20 08:22 Clopidogrel Bisulfate 75 Mg Tablet PO 75 mg DAILY [facility] Administration Clozapine 50 mg 07/31/20 09:00 08/01/20 08:21 Clozapine 25 Mg Tablet PO 50 mg DAILY [facility] Administration Enoxaparin Sodium 40 mg 07/29/20 15:15 08/01/20 15:16 Enoxaparin Sodium 40 Mg/0.4 Ml Syringe SUBCUT 40 mg Q24H [facility] Administration Finasteride 5 mg 07/23/20 17:00 08/01/20 08:25 Finasteride 5 Mg Tablet PO 5 mg DAILY [facility] Administration Furosemide 40 mg 07/25/20 17:00 08/01/20 17:28 Furosemide 40 Mg Tablet PO Not Given BIDWM [facility] Protocol Hydroxyzine HCl 25 mg 07/23/20 21:13 07/29/20 01:31 Hydroxyzine Hcl 25 Mg Tablet PO 25 mg BEDTIME PRN Administration Anxiety Lisinopril 2.5 mg 07/23/20 17:00 08/01/20 08:21 Lisinopril 2.5 Mg Tablet PO 2.5 mg DAILY [facility] Administration Protocol Loperamide HCl 2 mg 07/24/20 15:43 07/24/20 15:54 Loperamide Hcl 2 Mg Capsule PO 2 mg Q4H PRN Administration Diarrhea Magnesium Hydroxide 30 ml 07/23/20 21:13 Milk Of Magnesia 30 Ml Oral.Susp PO DAILY PRN Constipation Metformin HCl 1,000 mg 07/24/20 08:00 08/01/20 17:28 Metformin Hcl 1,000 Mg Tablet PO Not Given BIDWM [facility] Metoprolol Succinate 75 mg 07/23/20 17:00 08/01/20 08:19 Metoprolol Succinate Er 25 Mg Tab.Er.24h PO 75 mg DAILY [facility] Administration Protocol Multi-Ingred Cream/Lotion/Oil/Oint 1 appl 07/24/20 21:00 08/01/20 08:25 Mineral Oil/Petrolatum,White 106 Gm Tube TOPICAL 1 appl BID [facility] Administration Nystatin 1 appl 07/26/20 19:25 08/01/20 08:25 Nystatin Cream 15 Gm Tube TOPICAL 1 appl DAILY [facility] Administration Protocol Omeprazole 20 mg 07/24/20 06:30 08/01/20 08:24 Omeprazole 20 Mg Capsule.Dr PO 20 mg DAILY@0630 [facility] Administration Tamsulosin HCl 0.4 mg 07/25/20 21:00 07/31/20 20:14 Tamsulosin Hcl 0.4 Mg Capsule PO 0.4 mg BEDTIME [facility] Administration Trazodone HCl 50 mg 07/23/20 21:13 07/29/20 01:31 Trazodone Hcl 50 Mg Tablet PO 50 mg BEDTIME PRN Administration Insomnia Vitamin D 50 mcg 07/23/20 21:00 07/31/20 20:13 Cholecalciferol (Vitamin D3) 25 Mcg Tablet PO 50 mcg BEDTIME [facility] Administration Allergies Allergies Allergy/AdvReac Type Severity Reaction Status Date / Time No Known Allergies Allergy Verified 07/21/20 16:39 Assessment & Plan Assessment & Plan (1) Schizophrenia, paranoid, subchronic with acute exacerbation: Status: Acute Code(s): F20.0 - Paranoid schizophrenia Assessment and Plan: 1. continue to encourage PO meds 2. Clozaril changed to am dosing to see if he will take in am as he has been accepting am meds. 3. Petition to amend [facility] was completed on 07/28 to include antipsychotics that include antipsychotics with IM option. 4. Due to pt not ambulating and increase risk for DVT, will start Levonox 40mg SC daily- after consulting with Dr. Sussy Fields 5. Close monitoring of fluid overload as pt declines taking lasix, may have to do IV. Pt currently does not have capacity to make medical decisions. HCP is brother. (2) Heart failure: Status: Acute Code(s): I50.9 - Heart failure, unspecified Assessment and Plan: Continue cardiology recommendations: Per cardiology-->Patient admitted for acute exacerbation of sschizophrenia and refusing to take his medications. He has prior history of reported heart failure. He is currently on Lasix therapy. Clinically today appears to have no symptoms and no signs of congestive heart failure appears to be euvolemic. Continue current medical regimen. Blood pressure is well optimized. He is currently on dual antiplatelet therapy, he is not able to give further history as to why this is so. There is no reported recent intervention. However he does have history of peripheral vascular disease. For now will continue the [facility]. This will need to be addressed as outpatient through his primary care physician's office. No further cardiac workup is indicated at this point time. Patient stable from cardiac perspective. Will sign of the case at this point in time Greater than 50% of the session was spent on counseling and/or coordination of care Reason for contiued inpatient stay Substantial Risk for: inability to function
[2020-08-01 21:05] LABS: Glucose, Whole Blood 114 mg/dL (60-115)
[2020-08-02 08:17] LABS: MANUAL DIFF FLAG NO
[2020-08-02 08:19] LABS: Basophils Absolute Auto 0.1 X10*3/uL (0.0-0.2); Basophils Percent Auto 0.6 % (0-2); Eosinophils Absolute Auto 0.1 X10*3/uL (0.0-0.4); Eosinophils Percent Auto 1.7 % (0-4); Hematocrit 38.5 % (42-52); Hemoglobin 12.7 g/dl (14.0-18.0); Imm Gran Abs Auto 0.02 X10*3/uL (0.00-0.03); Imm Gran Pct Auto 0.2 % (0.0-0.4); Lymphocytes Absolute Auto 2.2 X10*3/uL (1.2-4.9); Lymphocytes Percent Auto 26.2 % (20-40); Mean Corpuscular Hemoglobin 25.8 pg (27.0-33.0); Mean Corpuscular Volume 78.1 fL (80-98); Mean Platelet Volume 9.9 fL (9.4-12.4); Monocytes Absolute Auto 0.9 X10*3/uL (0.1-1.2); Monocytes Percent Auto 10.2 % (2-11); Neutrophils Absolute Auto 5.2 X10*3/uL (2.0-8.3); Neutrophils Percent Auto 61.1 % (45-73); Platelet Count 319 X10*3/uL (160-400); Red Blood Count 4.93 X10*6/uL (4.60-5.80); Red Cell Distribution Width 15.5 % (11.0-16.0); White Blood Count 8.5 X10*3/uL (4.8-10.8)
[2020-08-02 08:45] LABS: Creatinine Clr Calc Pharmacy 100.5; Estimated Glomerular Filt Rate 53
--- NOTE | 2020-08-02 12:34 | P.PNPSI_ITS ---
Subjective Subjective Date of Service: 08/02/20 Reason For Visit: psychosis Interim History: Patient was seen in rounds today. He was laying on his mattress on the floor, eating sandwich. He states that he is doing a little better. He denies any side effects. Current medications were reviewed. No changes were made Review of Systems Review of Systems Constitutional: No Fever, No Chills ENT/Mouth: No Ear Pain, No Nasal Congestion, No sore throat Eyes: No Eye Pain, No Swelling, No Redness Cardiovascular: No Chest Pain, No SOB Respiratory: No Cough, No Sputum, No Dyspnea Gastrointestinal: No Nausea, No Vomiting, No Diarrhea, No Hematochezia, No Melena Genitourinary: No Dysuria, No Urinary Frequency, No Hematuria Musculoskeletal: No Myalgias Skin: No Skin Lesions, No rash; legs with edema bilat and light pink; not warm or painful. abraisoons on knee - no sign of infection Neuro: No Weakness, No Numbness, No Paresthesias, No Dizziness, No Headache Psych: Refusal of [place] [facility] medications, No Anxiety, no Depression, no SI/HI Heme/Lymph: No Lymphadenopathy Endocrine: No Polyuria, No Polydipsia Yes all other systems are reviewed and are negative and Unobtainable due to mental status Gastrointestinal: Reports abdominal pain and Reports constipation Mental Status Exam Mental Status Exam Narrative: Appearance: disheveled, restless Behavior: restless, guarded, dismissive Psychomotor: significant involuntary bilateral upper extremity movement Speech: mumbles at times, significant delayed response rate, soft tone, minimally spontaneous TP: single word answers TC:poverty of thought Mood: okay Affect:restless, anxious, irritable SI:denies HI:denies AH/VH:appears internally preoccupied Delusions:guarded Insight/judgment:impaired Memory/cog: alert, oriented to month, year not to situation nor place. judgement: poor-fair Diagnostics Vital Signs (24Hr): Vital Signs - 24 hr 08/01/20 17:15 Temperature 98.3 F Pulse Rate 81 Blood Pressure 95/51 L Body Mass Index 41.1 Labs Results: 08/02/20 08:09 08/02/20 08:09 Labs: Laboratory Results - last 48 hr 07/31/20 08/01/20 08/02/20 22:29 20:58 08:09 WBC 8.5 RBC 4.93 Hgb 12.7 L Hct 38.5 L MCV 78.1 L MCH 25.8 L MCHC 33.0 RDW 15.5 Plt Count 319 MPV 9.9 Immature Gran % (Auto) 0.2 Neut % (Auto) 61.1 Lymph % (Auto) 26.2 [place] % (Auto) 10.2 Eos % (Auto) 1.7 Baso % (Auto) 0.6 Lymph # (Auto) 2.2 [place] # (Auto) 0.9 Eos # (Auto) 0.1 Baso # (Auto) 0.1 Abs Immat Gran (auto) 0.02 Absolute Neuts (auto) 5.2 Absolute Nucleated RBC 0.000 Nucleated RBC % (auto) 0.0 Creatinine Estim Creat Clear Calc Estimated GFR POC Glucose 211 H 114 08/02/20 08:09 WBC RBC Hgb Hct MCV MCH MCHC RDW Plt Count MPV Immature Gran % (Auto) Neut % (Auto) Lymph % (Auto) [place] % (Auto) Eos % (Auto) Baso % (Auto) Lymph # (Auto) [place] # (Auto) Eos # (Auto) Baso # (Auto) Abs Immat Gran (auto) Absolute Neuts (auto) Absolute Nucleated RBC Nucleated RBC % (auto) Creatinine 1.35 Estim Creat Clear Calc 100.5 Estimated GFR 53 POC Glucose Imaging Radiology Impressions: ITS Impressions KUB X-Ray 07/22/20 17:13 IMPRESSION: Moderate volume of stool scattered in colon. No bowel obstruction. Medications Medications Current Medications Generic Name Dose Route Start Last Admin Trade Name Freq PRN Reason Stop Dose Admin Acetaminophen 650 mg 07/23/20 21:13 07/24/20 09:57 Acetaminophen 325 Mg Tablet PO 650 mg Q6H PRN Administration Headache/Pain Mild Scale (1-3) Al Hydroxide/Mg Hydroxide 30 ml 07/23/20 21:13 Magnesium Hydrox/Alum Hydrox 30 Ml Oral.Susp PO Q6H PRN Heartburn/Nausea Aspirin 81 mg 07/25/20 09:00 08/02/20 11:12 Aspirin Enteric Coated 81 Mg Tablet.Dr PO Not Given DAILY [facility] Atorvastatin Calcium 80 mg 07/23/20 21:00 08/01/20 21:59 Atorvastatin Calcium 80 Mg Tablet PO Not Given BEDTIME [facility] Clopidogrel Bisulfate 75 mg 07/23/20 17:00 08/02/20 11:10 Clopidogrel Bisulfate 75 Mg Tablet PO Not Given DAILY [facility] Clozapine 50 mg 07/31/20 09:00 08/02/20 11:10 Clozapine 25 Mg Tablet PO Not Given DAILY [facility] Enoxaparin Sodium 40 mg 07/29/20 15:15 08/01/20 15:16 Enoxaparin Sodium 40 Mg/0.4 Ml Syringe SUBCUT 40 mg Q24H [facility] Administration Finasteride 5 mg 07/23/20 17:00 08/02/20 11:11 Finasteride 5 Mg Tablet PO Not Given DAILY [facility] Furosemide 40 mg 07/25/20 17:00 08/02/20 11:11 Furosemide 40 Mg Tablet PO Not Given BIDWM [facility] Protocol Hydroxyzine HCl 25 mg 07/23/20 21:13 07/29/20 01:31 Hydroxyzine Hcl 25 Mg Tablet PO 25 mg BEDTIME PRN Administration Anxiety Lisinopril 2.5 mg 07/23/20 17:00 08/02/20 11:11 Lisinopril 2.5 Mg Tablet PO Not Given DAILY [facility] Protocol Loperamide HCl 2 mg 07/24/20 15:43 07/24/20 15:54 Loperamide Hcl 2 Mg Capsule PO 2 mg Q4H PRN Administration Diarrhea Magnesium Hydroxide 30 ml 07/23/20 21:13 Milk Of Magnesia 30 Ml Oral.Susp PO DAILY PRN Constipation Metformin HCl 1,000 mg 07/24/20 08:00 08/02/20 11:12 Metformin Hcl 1,000 Mg Tablet PO Not Given BIDWM [facility] Metoprolol Succinate 75 mg 07/23/20 17:00 08/02/20 11:12 Metoprolol Succinate Er 25 Mg Tab.Er.24h PO Not Given DAILY [facility] Protocol Multi-Ingred Cream/Lotion/Oil/Oint 1 appl 07/24/20 21:00 08/02/20 11:12 Mineral Oil/Petrolatum,White 106 Gm Tube TOPICAL Not Given BID [facility] Nystatin 1 appl 07/26/20 19:25 08/02/20 11:12 Nystatin Cream 15 Gm Tube TOPICAL Not Given DAILY [facility] Protocol Omeprazole 20 mg 07/24/20 06:30 08/02/20 07:12 Omeprazole 20 Mg Capsule.Dr PO Not Given DAILY@0630 [facility] Tamsulosin HCl 0.4 mg 07/25/20 21:00 08/01/20 22:00 Tamsulosin Hcl 0.4 Mg Capsule PO Not Given BEDTIME [facility] Trazodone HCl 50 mg 07/23/20 21:13 07/29/20 01:31 Trazodone Hcl 50 Mg Tablet PO 50 mg BEDTIME PRN Administration Insomnia Vitamin D 50 mcg 07/23/20 21:00 08/01/20 21:59 Cholecalciferol (Vitamin D3) 25 Mcg Tablet PO Not Given BEDTIME [facility] Allergies Allergies Allergy/AdvReac Type Severity Reaction Status Date / Time No Known Allergies Allergy Verified 07/21/20 16:39 Assessment & Plan Assessment & Plan (1) Schizophrenia, paranoid, subchronic with acute exacerbation: Status: Acute Code(s): F20.0 - Paranoid schizophrenia Assessment and Plan: 1. continue to encourage PO meds 2. Clozaril changed to am dosing to see if he will take in am as he has been accepting am meds. 3. Petition to [facility] was completed on 07/28 to include antipsychotics that include antipsychotics with IM option. 4. Due to pt not ambulating and increase risk for DVT, will start Levonox 40mg SC daily- after consulting with Dr. Sussy Fields 5. Close monitoring of fluid overload as pt declines taking lasix, may have to do IV. Pt currently does not have capacity to make medical decisions. HCP is brother. (2) Heart failure: Status: Acute Code(s): I50.9 - Heart failure, unspecified Assessment and Plan: Continue cardiology recommendations: Per cardiology-->Patient admitted for acute exacerbation of sschizophrenia and refusing to take his medications. He has prior history of reported heart failure. He is currently on Lasix therapy. Clinically today appears to have no symptoms and no signs of congestive heart failure appears to be euvolemic. Continue current medical regimen. Blood pressure is well optimized. He is currently on dual antiplatelet therapy, he is not able to give further history as to why this is so. There is no reported recent intervention. However he does have history of peripheral vascular disease. For now will continue the [facility]. This will need to be addressed as outpatient through his primary care physician's office. No further cardiac workup is indicated at this point time. Patient stable from cardiac perspective. Will sign of the case at this point in time Greater than 50% of the session was spent on counseling and/or coordination of care Reason for contiued inpatient stay Substantial Risk for: harm to self
[2020-08-02 21:47] LABS: Glucose, Whole Blood 123 mg/dL (60-115)
--- NOTE | 2020-08-03 09:57 | P.PNPSI_ITS ---
Subjective Subjective Date of Service: 08/03/20 Reason For Visit: psychosis Subjective Notes: Conditional Voluntary Interim History: Patient was seen in rounds today. He continues to be on one-to-one observation. Not attending any groups. Eating adequately and sl eeping has been intermittent. He refused his Clozaril. He continues to be somewhat irritable. He also refused his day Mets. He also refused vital signs. He did take his night meds. He denies any hallucinations but that may not be quite reliable. No complaints or side effects. No changes were made Medication Compliance: Intermittent Side effects from medications: No Attending Groups: No Review of Systems Review of Systems Constitutional: No Fever, No Chills ENT/Mouth: No Ear Pain, No Nasal Congestion, No sore throat Eyes: No Eye Pain, No Swelling, No Redness Cardiovascular: No Chest Pain, No SOB Respiratory: No Cough, No Sputum, No Dyspnea Gastrointestinal: No Nausea, No Vomiting, No Diarrhea, No Hematochezia, No Melena Genitourinary: No Dysuria, No Urinary Frequency, No Hematuria Musculoskeletal: No Myalgias Skin: No Skin Lesions, No rash; legs with edema bilat and light pink; not warm or painful. abraisoons on knee - no sign of infection Neuro: No Weakness, No Numbness, No Paresthesias, No Dizziness, No Headache Psych: Refusal of [facility] medications, No Anxiety, no Depression, no SI/HI Heme/Lymph: No Lymphadenopathy Endocrine: No Polyuria, No Polydipsia Yes all other systems are reviewed and are negative and Unobtainable due to mental status Gastrointestinal: Reports abdominal pain and Reports constipation Mental Status Exam Mental Status Exam Narrative: Appearance: disheveled Behavior: guarded, dismissive Psychomotor: significant involuntary bilateral upper extremity movement Speech: mumbles at times, significant delayed response rate, soft tone, minimally spontaneous TP: single word answers TC:poverty of thought Mood: okay Affect:restless, anxious, irritable SI:denies HI:denies AH/VH:appears internally preoccupied Delusions:guarded Insight/judgment:impaired Memory/cog: alert, oriented to month, year not to situation nor place. judgement: poor-fair Diagnostics Vital Signs (24Hr): Body Mass Index 41.1 Labs Results: 08/02/20 08:09 08/02/20 08:09 Labs: Laboratory Results - last 48 hr 08/01/20 08/02/20 08/02/20 20:58 08:09 08:09 WBC 8.5 RBC 4.93 Hgb 12.7 L Hct 38.5 L MCV 78.1 L MCH 25.8 L MCHC 33.0 RDW 15.5 Plt Count 319 MPV 9.9 Immature Gran % (Auto) 0.2 Neut % (Auto) 61.1 Lymph % (Auto) 26.2 [place] % (Auto) 10.2 Eos % (Auto) 1.7 Baso % (Auto) 0.6 Lymph # (Auto) 2.2 [place] # (Auto) 0.9 Eos # (Auto) 0.1 Baso # (Auto) 0.1 Abs Immat Gran (auto) 0.02 Absolute Neuts (auto) 5.2 Absolute Nucleated RBC 0.000 Nucleated RBC % (auto) 0.0 Creatinine 1.35 Estim Creat Clear Calc 100.5 Estimated GFR 53 POC Glucose 114 08/02/20 16:44 WBC RBC Hgb Hct MCV MCH MCHC RDW Plt Count MPV Immature Gran % (Auto) Neut % (Auto) Lymph % (Auto) [place] % (Auto) Eos % (Auto) Baso % (Auto) Lymph # (Auto) [place] # (Auto) Eos # (Auto) Baso # (Auto) Abs Immat Gran (auto) Absolute Neuts (auto) Absolute Nucleated RBC Nucleated RBC % (auto) Creatinine Estim Creat Clear Calc Estimated GFR POC Glucose 123 H Imaging Radiology Impressions: ITS Impressions KUB X-Ray 07/22/20 17:13 IMPRESSION: Moderate volume of stool scattered in colon. No bowel obstruction. Medications Medications Current Medications Generic Name Dose Route Start Last Admin Trade Name Freq PRN Reason Stop Dose Admin Acetaminophen 650 mg 07/23/20 21:13 07/24/20 09:57 Acetaminophen 325 Mg Tablet PO 650 mg Q6H PRN Administration Headache/Pain Mild Scale (1-3) Al Hydroxide/Mg Hydroxide 30 ml 07/23/20 21:13 Magnesium Hydrox/Alum Hydrox 30 Ml Oral.Susp PO Q6H PRN Heartburn/Nausea Aspirin 81 mg 07/25/20 09:00 08/02/20 11:12 Aspirin Enteric Coated 81 Mg Tablet. PO Not Given DAILY [facility] Atorvastatin Calcium 80 mg 07/23/20 21:00 08/02/20 23:09 Atorvastatin Calcium 80 Mg Tablet PO Not Given BEDTIME [facility] Clopidogrel Bisulfate 75 mg 07/23/20 17:00 08/02/20 11:10 Clopidogrel Bisulfate 75 Mg Tablet PO Not Given DAILY [facility] Clozapine 50 mg 07/31/20 09:00 08/02/20 11:10 Clozapine 25 Mg Tablet PO Not Given DAILY [facility] Enoxaparin Sodium 40 mg 07/29/20 15:15 08/02/20 18:02 Enoxaparin Sodium 40 Mg/0.4 Ml Syringe SUBCUT Not Given Q24H [facility] Finasteride 5 mg 07/23/20 17:00 08/02/20 11:11 Finasteride 5 Mg Tablet PO Not Given DAILY [facility] Furosemide 40 mg 07/25/20 17:00 08/02/20 18:02 Furosemide 40 Mg Tablet PO Not Given BIDWM [facility] Protocol Hydroxyzine HCl 25 mg 07/23/20 21:13 07/29/20 01:31 Hydroxyzine Hcl 25 Mg Tablet PO 25 mg BEDTIME PRN Administration Anxiety Lisinopril 2.5 mg 07/23/20 17:00 08/02/20 11:11 Lisinopril 2.5 Mg Tablet PO Not Given DAILY [facility] Protocol Loperamide HCl 2 mg 07/24/20 15:43 07/24/20 15:54 Loperamide Hcl 2 Mg Capsule PO 2 mg Q4H PRN Administration Diarrhea Magnesium Hydroxide 30 ml 07/23/20 21:13 Milk Of Magnesia 30 Ml Oral.Susp PO DAILY PRN Constipation Metformin HCl 1,000 mg 07/24/20 08:00 08/02/20 18:02 Metformin Hcl 1,000 Mg Tablet PO Not Given BIDWM [facility] Metoprolol Succinate 75 mg 07/23/20 17:00 08/02/20 11:12 Metoprolol Succinate Er 25 Mg Tab.Er.24h PO Not Given DAILY [facility] Protocol Multi-Ingred Cream/Lotion/Oil/Oint 1 appl 07/24/20 21:00 08/02/20 23:10 Mineral Oil/Petrolatum,White 106 Gm Tube TOPICAL Not Given BID [facility] Nystatin 1 appl 07/26/20 19:25 08/02/20 11:12 Nystatin Cream 15 Gm Tube TOPICAL Not Given DAILY [facility] Protocol Omeprazole 20 mg 07/24/20 06:30 08/02/20 07:12 Omeprazole 20 Mg Capsule. PO Not Given DAILY@0630 [facility] Tamsulosin HCl 0.4 mg 07/25/20 21:00 08/02/20 23:10 Tamsulosin Hcl 0.4 Mg Capsule PO Not Given BEDTIME [facility] Trazodone HCl 50 mg 07/23/20 21:13 07/29/20 01:31 Trazodone Hcl 50 Mg Tablet PO 50 mg BEDTIME PRN Administration Insomnia Vitamin D 50 mcg 07/23/20 21:00 08/02/20 23:10 Cholecalciferol (Vitamin D3) 25 Mcg Tablet PO Not Given BEDTIME [facility] Allergies Allergies Allergy/AdvReac Type Severity Reaction Status Date / Time No Known Allergies Allergy Verified 07/21/20 16:39 Assessment & Plan Assessment & Plan (1) Schizophrenia, paranoid, subchronic with acute exacerbation: Status: Acute Code(s): F20.0 - Paranoid schizophrenia Assessment and Plan: 1. continue current regimen and plan encouraged to take his medications. Continue one-to-one observation. (2) Heart failure: Status: Acute Code(s): I50.9 - Heart failure, unspecified Assessment and Plan: Continue cardiology recommendations: Greater than 50% of the session was spent on counseling and/or coordination of care Reason for contiued inpatient stay Substantial Risk for: inability to function
[2020-08-03 10:07] VITALS: BP 125/73; PULSE 102; RESP 20; TEMP 36.6; O2SAT 95
[2020-08-03] MEDS: Enoxaparin Sodium 40 MG/0.4 ML SYRINGE SUBCUT (15:20)
[2020-08-03 16:30] VITALS: BP 120/71; PULSE 101; TEMP 36.3
[2020-08-04 08:28] LABS: Glucose, Whole Blood 132 mg/dL (60-115)
[2020-08-04 08:29] VITALS: BP 128/60; PULSE 97
[2020-08-04] MEDS: Metoprolol Succinate ER 25 MG TAB.ER.24H 75 MG PO (08:29)
[2020-08-04] MEDS: Finasteride 5 MG TABLET PO (08:29)
[2020-08-04 08:30] VITALS: BP 128/60; PULSE 97
[2020-08-04] MEDS: Furosemide 40 MG TABLET PO ×2 (08:30→17:04)
[2020-08-04] MEDS: metFORMIN HCl 1,000 MG TABLET 1000 MG PO ×2 (08:30→17:04)
[2020-08-04] MEDS: Omeprazole 20 MG CAPSULE.DR PO (08:30)
[2020-08-04] MEDS: Aspirin Enteric Coated 81 MG TABLET.DR PO (08:30)
[2020-08-04] MEDS: cloZAPine 25 MG TABLET PO (08:30)
[2020-08-04] MEDS: Clopidogrel Bisulfate 75 MG TABLET PO (08:30)
[2020-08-04] MEDS: lisinopriL 2.5 MG TABLET PO (08:30)
--- NOTE | 2020-08-04 11:11 | P.PNPSI_ITS ---
Subjective Subjective Date of Service: 08/04/20 Reason For Visit: psychosis Interim History: Patient was seen in rounds today. He continues to be on one-to-one observation. He is mostly in bed and refusing medications intermittently and selectively. This morning he did take his medication regimen. He has been refusing the Lovenox. There is concern about him being in bed, his medical condition, weight. I did try to talk to him at length about this medication and he almost excepted this but then at the last minute refused. I tried calling his brother who may be the legal guardian but had no luck reaching him. He continues to be delusional, hearing voices which may dictate his acceptance of care and medications. Medication Compliance: Intermittent Side effects from medications: No Attending Groups: No Review of Systems Review of Systems Constitutional: No Fever, No Chills ENT/Mouth: No Ear Pain, No Nasal Congestion, No sore throat Eyes: No Eye Pain, No Swelling, No Redness Cardiovascular: No Chest Pain, No SOB Respiratory: No Cough, No Sputum, No Dyspnea Gastrointestinal: No Nausea, No Vomiting, No Diarrhea, No Hematochezia, No Melena Genitourinary: No Dysuria, No Urinary Frequency, No Hematuria Musculoskeletal: No Myalgias Skin: No Skin Lesions, No rash; legs with edema bilat and light pink; not warm or painful. abraisoons on knee - no sign of infection Neuro: No Weakness, No Numbness, No Paresthesias, No Dizziness, No Headache Psych: Refusal of [place] orders medications, No Anxiety, no Depression, no SI/HI Heme/Lymph: No Lymphadenopathy Endocrine: No Polyuria, No Polydipsia Yes all other systems are reviewed and are negative and Unobtainable due to mental status Gastrointestinal: Reports abdominal pain and Reports constipation Mental Status Exam Mental Status Exam Narrative: In today's visit he is alert, oriented to place and person. Speech is normal. Moderate eye contact. Affect is appropriate and constricted. He admits to auditory hallucinations. There are paranoid delusions. Hallu cinations are command in nature. No suicidal ideations. No recent violent behaviors. Cognitively he is grossly intact but preoccupied. Judgment is impaired Diagnostics Vital Signs (24Hr): Vital Signs - 24 hr 08/03/20 16:30 08/04/20 08:29 08/04/20 08:30 Temperature 97.3 F Pulse Rate 101 H 97 97 Blood Pressure 120/71 128/60 128/60 Body Mass Index 41.1 Labs Results: 08/02/20 08:09 08/02/20 08:09 Labs: Laboratory Results - last 48 hr 08/02/20 08/04/20 16:44 08:23 POC Glucose 123 H 132 H Imaging Radiology Impressions: ITS Impressions KUB X-Ray 07/22/20 17:13 IMPRESSION: Moderate volume of stool scattered in colon. No bowel obstruction. Medications Medications Current Medications Generic Name Dose Route Start Last Admin Trade Name Freq PRN Reason Stop Dose Admin Acetaminophen 650 mg 07/23/20 21:13 07/24/20 09:57 Acetaminophen 325 Mg Tablet PO 650 mg Q6H PRN Administration Headache/Pain Mild Scale (1-3) Al Hydroxide/Mg Hydroxide 30 ml 07/23/20 21:13 Magnesium Hydrox/Alum Hydrox 30 Ml Oral.Susp PO Q6H PRN Heartburn/Nausea Aspirin 81 mg 07/25/20 09:00 08/04/20 08:30 Aspirin Enteric Coated 81 Mg Tablet.Dr PO 81 mg DAILY [facility] Administration Atorvastatin Calcium 80 mg 07/23/20 21:00 08/03/20 21:14 Atorvastatin Calcium 80 Mg Tablet PO Not Given BEDTIME [facility] Clopidogrel Bisulfate 75 mg 07/23/20 17:00 08/04/20 08:30 Clopidogrel Bisulfate 75 Mg Tablet PO 75 mg DAILY [facility] Administration Clozapine 25 mg 08/04/20 09:00 08/04/20 08:30 Clozapine 25 Mg Tablet PO 25 mg DAILY [facility] Administration Enoxaparin Sodium 40 mg 07/29/20 15:15 08/03/20 15:20 Enoxaparin Sodium 40 Mg/0.4 Ml Syringe SUBCUT 40 mg Q24H [facility] Administration Finasteride 5 mg 07/23/20 17:00 08/04/20 08:29 Finasteride 5 Mg Tablet PO 5 mg DAILY [facility] Administration Furosemide 40 mg 07/25/20 17:00 08/04/20 08:30 Furosemide 40 Mg Tablet PO 40 mg BIDWM [facility] Administration Protocol Hydroxyzine HCl 25 mg 07/23/20 21:13 07/29/20 01:31 Hydroxyzine Hcl 25 Mg Tablet PO 25 mg BEDTIME PRN Administration Anxiety Lisinopril 2.5 mg 07/23/20 17:00 08/04/20 08:30 Lisinopril 2.5 Mg Tablet PO 2.5 mg DAILY [facility] Administration Protocol Loperamide HCl 2 mg 07/24/20 15:43 07/24/20 15:54 Loperamide Hcl 2 Mg Capsule PO 2 mg Q4H PRN Administration Diarrhea Magnesium Hydroxide 30 ml 07/23/20 21:13 Milk Of Magnesia 30 Ml Oral.Susp PO DAILY PRN Constipation Metformin HCl 1,000 mg 07/24/20 08:00 08/04/20 08:30 Metformin Hcl 1,000 Mg Tablet PO 1,000 mg BIDWM [facility] Administration Metoprolol Succinate 75 mg 07/23/20 17:00 08/04/20 08:29 Metoprolol Succinate Er 25 Mg Tab.Er.24h PO 75 mg DAILY [facility] Administration Protocol Multi-Ingred Cream/Lotion/Oil/Oint 1 appl 07/24/20 21:00 08/04/20 09:19 Mineral Oil/Petrolatum,White 106 Gm Tube TOPICAL Not Given BID [facility] Nystatin 1 appl 07/26/20 19:25 08/04/20 09:19 Nystatin Cream 15 Gm Tube TOPICAL Not Given DAILY [facility] Protocol Omeprazole 20 mg 07/24/20 06:30 08/04/20 08:30 Omeprazole 20 Mg Capsule. PO 20 mg DAILY@0630 [facility] Administration Tamsulosin HCl 0.4 mg 07/25/20 21:00 08/03/20 21:15 Tamsulosin Hcl 0.4 Mg Capsule PO Not Given BEDTIME [facility] Trazodone HCl 50 mg 07/23/20 21:13 07/29/20 01:31 Trazodone Hcl 50 Mg Tablet PO 50 mg BEDTIME PRN Administration Insomnia Vitamin D 50 mcg 07/23/20 21:00 08/03/20 21:14 Cholecalciferol (Vitamin D3) 25 Mcg Tablet PO Not Given BEDTIME [facility] Allergies Allergies Allergy/AdvReac Type Severity Reaction Status Date / Time No Known Allergies Allergy Verified 07/21/20 16:39 Assessment & Plan Assessment & Plan (1) Schizophrenia, paranoid, subchronic with acute exacerbation: Status: Acute Code(s): F20.0 - Paranoid schizophrenia Assessment and Plan: 1. continue current regimen and plan encouraged to take his medications. Continue one-to-one observation. (2) Heart failure: Status: Acute Code(s): I50.9 - Heart failure, unspecified Assessment and Plan: Continue cardiology recommendations: Greater than 50% of the session was spent on counseling and/or coordination of care Reason for contiued inpatient stay Substantial Risk for: inability to function
[2020-08-04] MEDS: Enoxaparin Sodium 40 MG/0.4 ML SYRINGE SUBCUT (14:26)
[2020-08-04] MEDS: risperiDONE 3 MG TABLET PO (14:26)
[2020-08-04] MEDS: LORazepam 1 MG TABLET 2 MG PO (14:26)
--- NOTE | 2020-08-04 15:03 | PC.NURSE ---
PT appeared to be responding to internal stimuli, was yelling about getting sick on the floor. Pt stated that he was hearing voices telling him he would get sick if he ate or drank anything and asked staff to tell the voices to be quiet . Provider notified, new order for risperdal and ativan received.. PT offered PO medication, with much encouragement and education pt agreeable to take medications offered. Pt medicated per [facility]AR.
[2020-08-04 17:06] VITALS: BP 110/85; PULSE 95; TEMP 35.7
[2020-08-04] MEDS: Cholecalciferol (Vitamin D3) 25 MCG TABLET 50 MCG PO (22:23)
[2020-08-04] MEDS: Tamsulosin HCL 0.4 MG CAPSULE PO (22:24)
[2020-08-04] MEDS: Atorvastatin Calcium 80 MG TABLET PO (22:24)
[2020-08-05 06:00] VITALS: BP 97/57; PULSE 95
[2020-08-05 06:27] LABS: Glucose, Whole Blood 124 mg/dL (60-115)
[2020-08-05] MEDS: cloZAPine 25 MG TABLET PO (09:52)
[2020-08-05] MEDS: Omeprazole 20 MG CAPSULE.DR PO (09:52)
[2020-08-05] MEDS: Aspirin Enteric Coated 81 MG TABLET.DR PO (09:52)
[2020-08-05] MEDS: Finasteride 5 MG TABLET PO (09:52)
[2020-08-05] MEDS: metFORMIN HCl 1,000 MG TABLET 1000 MG PO ×2 (09:52→17:30)
[2020-08-05] MEDS: Clopidogrel Bisulfate 75 MG TABLET PO (09:52)
[2020-08-05] MEDS: Furosemide 40 MG TABLET PO ×2 (09:52→17:30)
[2020-08-05 09:53] VITALS: BP 97/57
--- NOTE | 2020-08-05 13:06 | HO.PSYCHPN ---
Subjective Subjective Date of Service: 08/06/20 Reason For Visit: psychosis Interim History: Pt agreed to take clozaril this morning and yesterday, 25 mg po daily. He continues to report AH telling him not to take any medications or to roll over the floor. He has ambulated to recliner but not in valenzuela. He is minimally interactive with peers or staff. He denies SI/HI. However, he reports he is tired of living like this. He denies any plan or intent to hurt himself or others. He continues to eat very little with much encouragement, because he reports voices are telling him not to eat. Review of Systems Review of Systems Constitutional: No Fever, No Chills ENT/Mouth: No Ear Pain, No Nasal Congestion, No sore throat Eyes: No Eye Pain, No Swelling, No Redness Cardiovascular: No Chest Pain, No SOB Respiratory: No Cough, No Sputum, No Dyspnea Gastrointestinal: No Nausea, No Vomiting, No Diarrhea, No Hematochezia, No Melena Genitourinary: No Dysuria, No Urinary Frequency, No Hematuria Musculoskeletal: No Myalgias Skin: No Skin Lesions, No rash; legs with edema bilat and light pink; not warm or painful. abraisoons on knee - no sign of infection Neuro: No Weakness, No Numbness, No Paresthesias, No Dizziness, No Headache Psych: Refusal of [place] [facility] medications, No Anxiety, no Depression, no SI/HI Heme/Lymph: No Lymphadenopathy Endocrine: No Polyuria, No Polydipsia Yes all other systems are reviewed and are negative and Unobtainable due to mental status Cardiovascular: Denies chest pain and Denies lightheadedness Mental Status Exam Mental Status Exam Narrative: Appearance: disheveled, restless Behavior: restless, guarded, dismissive Psychomotor: significant involuntary bilateral upper extremity movement Speech: mumbles at times, significant delayed response rate, soft tone, minimally spontaneous TP: single word answers TC:poverty of thought Mood: okay Affect:restless, anxious, irritable SI:denies HI:denies AH/VH:appears internally preoccupied Delusions:guarded Insight/judgment:impaired Memory/cog: alert, oriented to month, year not to situation nor place. judgement: poor-fair Diagnostics Vital Signs (24Hr): Vital Signs - 24 hr 08/05/20 16:56 08/06/20 06:00 Temperature 97.1 F 97.0 F Pulse Rate 106 H 102 H Respiratory Rate 18 Blood Pressure 121/68 129/63 Pulse Oximetry 96 94 Body Mass Index 41.1 Labs Results: 08/02/20 08:09 08/02/20 08:09 Labs: Laboratory Results - last 48 hr 08/05/20 08/05/20 08/06/20 06:03 17:15 06:32 POC Glucose 124 H 121 H 128 H Imaging Radiology Impressions: ITS Impressions KUB X-Ray 07/22/20 17:13 IMPRESSION: Moderate volume of stool scattered in colon. No bowel obstruction. Medications Medications Current Medications Generic Name Dose Route Start Last Admin Trade Name Freq PRN Reason Stop Dose Admin Acetaminophen 650 mg 07/23/20 21:13 07/24/20 09:57 Acetaminophen 325 Mg Tablet PO 650 mg Q6H PRN Administration Headache/Pain Mild Scale (1-3) Al Hydroxide/Mg Hydroxide 30 ml 07/23/20 21:13 Magnesium Hydrox/Alum Hydrox 30 Ml Oral.Susp PO Q6H PRN Heartburn/Nausea Aspirin 81 mg 07/25/20 09:00 08/06/20 10:32 Aspirin Enteric Coated 81 Mg Tablet.Dr PO Not Given DAILY [facility] Atorvastatin Calcium 80 mg 07/23/20 21:00 08/05/20 20:27 Atorvastatin Calcium 80 Mg Tablet PO 80 mg BEDTIME [facility] Administration Clopidogrel Bisulfate 75 mg 07/23/20 17:00 08/06/20 10:32 Clopidogrel Bisulfate 75 Mg Tablet PO Not Given DAILY [facility] Clozapine 50 mg 08/06/20 09:00 08/06/20 10:32 Clozapine 25 Mg Tablet PO Not Given DAILY [facility] Enoxaparin Sodium 40 mg 07/29/20 15:15 08/05/20 15:05 Enoxaparin Sodium 40 Mg/0.4 Ml Syringe SUBCUT 40 mg Q24H [facility] Administration Finasteride 5 mg 07/23/20 17:00 08/06/20 10:32 Finasteride 5 Mg Tablet PO Not Given DAILY [facility] Furosemide 40 mg 07/25/20 17:00 08/06/20 10:31 Furosemide 40 Mg Tablet PO Not Given BIDWM [facility] Protocol Hydroxyzine HCl 25 mg 07/23/20 21:13 07/29/20 01:31 Hydroxyzine Hcl 25 Mg Tablet PO 25 mg BEDTIME PRN Administration Anxiety Lisinopril 2.5 mg 07/23/20 17:00 08/06/20 10:32 Lisinopril 2.5 Mg Tablet PO Not Given DAILY [facility] Protocol Loperamide HCl 2 mg 07/24/20 15:43 07/24/20 15:54 Loperamide Hcl 2 Mg Capsule PO 2 mg Q4H PRN Administration Diarrhea Magnesium Hydroxide 30 ml 07/23/20 21:13 Milk Of Magnesia 30 Ml Oral.Susp PO DAILY PRN Constipation Metformin HCl 1,000 mg 07/24/20 08:00 08/06/20 10:31 Metformin Hcl 1,000 Mg Tablet PO Not Given BIDWM [facility] Metoprolol Succinate 75 mg 07/23/20 17:00 08/06/20 10:33 Metoprolol Succinate Er 25 Mg Tab.Er.24h PO Not Given DAILY [facility] Protocol Multi-Ingred Cream/Lotion/Oil/Oint 1 appl 07/24/20 21:00 08/06/20 09:36 Mineral Oil/Petrolatum,White 106 Gm Tube TOPICAL Not Given BID [facility] Nystatin 1 appl 07/26/20 19:25 08/06/20 09:36 Nystatin Cream 15 Gm Tube TOPICAL Not Given DAILY [facility] Protocol Omeprazole 20 mg 07/24/20 06:30 08/06/20 10:31 Omeprazole 20 Mg Capsule.Dr PO Not Given DAILY@0630 [facility] Tamsulosin HCl 0.4 mg 07/25/20 21:00 08/05/20 20:27 Tamsulosin Hcl 0.4 Mg Capsule PO 0.4 mg BEDTIME [facility] Administration Trazodone HCl 50 mg 07/23/20 21:13 07/29/20 01:31 Trazodone Hcl 50 Mg Tablet PO 50 mg BEDTIME PRN Administration Insomnia Vitamin D 50 mcg 07/23/20 21:00 08/05/20 20:27 Cholecalciferol (Vitamin D3) 25 Mcg Tablet PO 50 mcg BEDTIME [facility] Administration Allergies Allergies Allergy/AdvReac Type Severity Reaction Status Date / Time No Known Allergies Allergy Verified 07/21/20 16:39 Assessment & Plan Assessment & Plan (1) Schizophrenia, paranoid, subchronic with acute exacerbation: Status: Acute Code(s): F20.0 - Paranoid schizophrenia Assessment and Plan: 1. continue current regimen and plan encouraged to take his medications. Continue one-to-one observation. (2) Heart failure: Status: Acute Code(s): I50.9 - Heart failure, unspecified Assessment and Plan: Continue cardiology recommendations: Greater than 50% of the session was spent on counseling and/or coordination of care Reason for contiued inpatient stay Substantial Risk for: inability to function
[2020-08-05] MEDS: Enoxaparin Sodium 40 MG/0.4 ML SYRINGE SUBCUT (15:05)
[2020-08-05 16:56] VITALS: BP 121/68; PULSE 106; RESP 18; TEMP 36.2; O2SAT 96
[2020-08-05 17:48] LABS: Glucose, Whole Blood 121 mg/dL (60-115)
[2020-08-05] MEDS: Tamsulosin HCL 0.4 MG CAPSULE PO (20:27)
[2020-08-05] MEDS: Cholecalciferol (Vitamin D3) 25 MCG TABLET 50 MCG PO (20:27)
[2020-08-05] MEDS: Atorvastatin Calcium 80 MG TABLET PO (20:27)
[2020-08-05] MEDS: Mineral Oil/Petrolatum,White 106 GM Tube 1 APPL TOPICAL (20:28)
[2020-08-06 06:00] VITALS: BP 129/63; PULSE 102; TEMP 36.1; O2SAT 94
[2020-08-06 06:37] LABS: Glucose, Whole Blood 128 mg/dL (60-115)
[2020-08-06] MEDS: Enoxaparin Sodium 40 MG/0.4 ML SYRINGE SUBCUT (14:35)
[2020-08-06] MEDS: cloZAPine 25 MG TABLET 50 MG PO (15:19)
[2020-08-06] MEDS: metFORMIN HCl 1,000 MG TABLET 1000 MG PO (17:02)
[2020-08-06] MEDS: Furosemide 40 MG TABLET PO (17:02)
[2020-08-06 18:00] VITALS: BP 110/69; PULSE 110; RESP 18; O2SAT 97
--- NOTE | 2020-08-06 19:50 | HO.PSYCHPN ---
Subjective Subjective Date of Service: 08/06/20 Reason For Visit: psychosis Subjective Notes: Conditional Voluntary Healthcare Proxy: No Guardianship: Yes Medical Problems Affecting Mental Status: No Interim History: Minimally interactive today. Team reports poor sleep appetite, non compliance with medications, reports of auditory perceptual alterations. Beginning to attempt to make an alliance with pt. Medication Compliance: No Side effects from medications: No Attending Groups: No Review of Systems Constitutional: Reports anorexia, Reports daytime sleepiness, Reports difficulty sleeping, Reports fatigue, Reports lethargy, Reports malaise and Reports poor appetite Psychiatric: Reports abnormal sleep pattern, Reports change in appetite, Reports depression, Reports difficulty concentrating, Reports auditory hallucinations and Reports hallucinations Endocrine: Reports fatigue Mental Status Exam Mental Status Exam Patient Appearance: Fatigued Patient Orientation: Person and Place Level of Consciousness: Awake Patient Behavior: Guarded Mood Description: Depressed Affect Description: Flat Patient Cognition Impaired: No Ability to Follow Directions: Fair Speech Pattern: Spontaneous Speech Memory Description: Episodic Impaired Hallucinations: Auditory Delusions: Paranoid Ideation Thought Process: Rumination Thought Content: positive for Circumstantial Depressive Symptoms: Insomnia, Difficulty Sleeping, Changes in Appetite and Loss of Energy Judgement: Poor Diagnostics Vital Signs (24Hr): Vital Signs - 24 hr 08/06/20 06:00 08/06/20 18:00 Temperature 97.0 F Pulse Rate 102 H 110 H Respiratory Rate 18 Blood Pressure 129/63 110/69 Pulse Oximetry 94 97 Body Mass Index 41.1 Labs Results: 08/02/20 08:09 08/02/20 08:09 Labs: Laboratory Results - last 48 hr 08/05/20 08/05/20 08/06/20 06:03 17:15 06:32 POC Glucose 124 H 121 H 128 H Imaging Radiology Impressions: ITS Impressions KUB X-Ray 07/22/20 17:13 IMPRESSION: Moderate volume of stool scattered in colon. No bowel obstruction. Medications Medications Current Medications Generic Name Dose Route Start Last Admin Trade Name Freq PRN Reason Stop Dose Admin Acetaminophen 650 mg 07/23/20 21:13 07/24/20 09:57 Acetaminophen 325 Mg Tablet PO 650 mg Q6H PRN Administration Headache/Pain Mild Scale (1-3) Al Hydroxide/Mg Hydroxide 30 ml 07/23/20 21:13 Magnesium Hydrox/Alum Hydrox 30 Ml Oral.Susp PO Q6H PRN Heartburn/Nausea Aspirin 81 mg 07/25/20 09:00 08/06/20 10:32 Aspirin Enteric Coated 81 Mg Tablet.Dr PO Not Given DAILY [facility] Atorvastatin Calcium 80 mg 07/23/20 21:00 08/05/20 20:27 Atorvastatin Calcium 80 Mg Tablet PO 80 mg BEDTIME [facility] Administration Clopidogrel Bisulfate 75 mg 07/23/20 17:00 08/06/20 10:32 Clopidogrel Bisulfate 75 Mg Tablet PO Not Given DAILY [facility] Clozapine 50 mg 08/06/20 09:00 08/06/20 15:19 Clozapine 25 Mg Tablet PO 50 mg DAILY [facility] Administration Enoxaparin Sodium 40 mg 07/29/20 15:15 08/06/20 14:35 Enoxaparin Sodium 40 Mg/0.4 Ml Syringe SUBCUT 40 mg Q24H [facility] Administration Finasteride 5 mg 07/23/20 17:00 08/06/20 10:32 Finasteride 5 Mg Tablet PO Not Given DAILY [facility] Furosemide 40 mg 07/25/20 17:00 08/06/20 17:02 Furosemide 40 Mg Tablet PO 40 mg BIDWM [facility] Administration Protocol Hydroxyzine HCl 25 mg 07/23/20 21:13 07/29/20 01:31 Hydroxyzine Hcl 25 Mg Tablet PO 25 mg BEDTIME PRN Administration Anxiety Lisinopril 2.5 mg 07/23/20 17:00 08/06/20 10:32 Lisinopril 2.5 Mg Tablet PO Not Given DAILY [facility] Protocol Loperamide HCl 2 mg 07/24/20 15:43 07/24/20 15:54 Loperamide Hcl 2 Mg Capsule PO 2 mg Q4H PRN Administration Diarrhea Magnesium Hydroxide 30 ml 07/23/20 21:13 Milk Of Magnesia 30 Ml Oral.Susp PO DAILY PRN Constipation Metformin HCl 1,000 mg 07/24/20 08:00 08/06/20 17:02 Metformin Hcl 1,000 Mg Tablet PO 1,000 mg BIDWM [facility] Administration Metoprolol Succinate 75 mg 07/23/20 17:00 08/06/20 10:33 Metoprolol Succinate Er 25 Mg Tab.Er.24h PO Not Given DAILY [facility] Protocol Multi-Ingred Cream/Lotion/Oil/Oint 1 appl 07/24/20 21:00 08/06/20 09:36 Mineral Oil/Petrolatum,White 106 Gm Tube TOPICAL Not Given BID [facility] Nystatin 1 appl 07/26/20 19:25 08/06/20 09:36 Nystatin Cream 15 Gm Tube TOPICAL Not Given DAILY [facility] Protocol Omeprazole 20 mg 07/24/20 06:30 08/06/20 10:31 Omeprazole 20 Mg Capsule.Dr PO Not Given DAILY@0630 [facility] Tamsulosin HCl 0.4 mg 07/25/20 21:00 08/05/20 20:27 Tamsulosin Hcl 0.4 Mg Capsule PO 0.4 mg BEDTIME [facility] Administration Trazodone HCl 50 mg 07/23/20 21:13 07/29/20 01:31 Trazodone Hcl 50 Mg Tablet PO 50 mg BEDTIME PRN Administration Insomnia Vitamin D 50 mcg 07/23/20 21:00 08/05/20 20:27 Cholecalciferol (Vitamin D3) 25 Mcg Tablet PO 50 mcg BEDTIME [facility] Administration Allergies Allergies Allergy/AdvReac Type Severity Reaction Status Date / Time No Known Allergies Allergy Verified 07/21/20 16:39 Assessment & Plan Assessment & Plan (1) Schizophrenia, paranoid, subchronic with acute exacerbation: Status: Acute Code(s): F20.0 - Paranoid schizophrenia Assessment and Plan: 1. continue current regimen and plan encouraged to take his medications. Continue one-to-one observation. (2) Heart failure: Status: Acute Code(s): I50.9 - Heart failure, unspecified Assessment and Plan: Continue cardiology recommendations: Greater than 50% of the session was spent on counseling and/or coordination of care Reason for contiued inpatient stay Substantial Risk for: inability to function and med/psych decompensation
[2020-08-06] MEDS: Cholecalciferol (Vitamin D3) 25 MCG TABLET 50 MCG PO (20:59)
[2020-08-06] MEDS: Atorvastatin Calcium 80 MG TABLET PO (21:00)
[2020-08-06] MEDS: Tamsulosin HCL 0.4 MG CAPSULE PO (21:00)
[2020-08-06] MEDS: Mineral Oil/Petrolatum,White 106 GM Tube 1 APPL TOPICAL (21:14)
[2020-08-06 22:37] VITALS: BMI 40.6
[2020-08-07] MEDS: Furosemide 40 MG TABLET PO ×2 (08:53→17:53)
[2020-08-07] MEDS: metFORMIN HCl 1,000 MG TABLET 1000 MG PO ×2 (08:53→17:53)
[2020-08-07] MEDS: Clopidogrel Bisulfate 75 MG TABLET PO (08:54)
[2020-08-07] MEDS: cloZAPine 25 MG TABLET 50 MG PO (08:54)
[2020-08-07] MEDS: Aspirin Enteric Coated 81 MG TABLET.DR PO (08:56)
[2020-08-07] MEDS: Finasteride 5 MG TABLET PO (08:56)
[2020-08-07] MEDS: Omeprazole 20 MG CAPSULE.DR PO (08:57)
[2020-08-07 09:09] VITALS: BP 102/53; PULSE 101
[2020-08-07 09:10] VITALS: BP 102/53; PULSE 101
[2020-08-07] MEDS: Mineral Oil/Petrolatum,White 106 GM Tube 1 APPL TOPICAL ×2 (09:12→20:30)
[2020-08-07] MEDS: Nystatin Cream 15 GM TUBE 1 APPL TOPICAL (09:12)
[2020-08-07] MEDS: Enoxaparin Sodium 40 MG/0.4 ML SYRINGE SUBCUT (15:06)
[2020-08-07 18:00] VITALS: BP 138/78; PULSE 114; TEMP 36.6
--- NOTE | 2020-08-07 18:51 | HO.PSYCHPN ---
Subjective Subjective Date of Service: 08/07/20 Reason For Visit: psychosis Subjective Notes: Conditional Voluntary Healthcare Proxy: No Guardianship: Yes Medical Problems Affecting Mental Status: Yes Interim History: Tolerating 50 mg Clozapine, accepting medications. PT consult today recommends tid ambulation with walker which was provided. Calmer today when approached-brief interaction, observed with walker, appears steady Medication Compliance: Yes Side effects from medications: No Attending Groups: No Review of Systems Constitutional: Reports poor appetite Psychiatric: Reports change in appetite, Reports difficulty concentrating, Reports auditory hallucinations and Reports paranoia Mental Status Exam Mental Status Exam Patient Appearance: Fatigued Patient Orientation: Person Level of Consciousness: Awake and Alert Patient Behavior: Talkative, Cooperative, Fatigued and Good Eye Contact Mood Description: Calm and Withdrawn Affect Description: Withdrawn and Flat Patient Cognition Impaired: Yes Ability to Follow Directions: Fair Speech Pattern: Spontaneous Speech Memory Description: Episodic Impaired Hallucinations: Auditory Delusions: Present Thought Process: Distracted Depressive Symptoms: Changes in Appetite and Difficulty Concentrating Judgement: Poor Diagnostics Vital Signs (24Hr): Vital Signs - 24 hr 08/07/20 09:09 08/07/20 09:10 08/07/20 18:00 Temperature 98 F Pulse Rate 101 H 101 H 114 H Blood Pressure 102/53 L 102/53 L 138/78 Body Mass Index 40.6 Labs Results: 08/02/20 08:09 08/02/20 08:09 Labs: Laboratory Results - last 48 hr 08/06/20 06:32 POC Glucose 128 H Imaging Radiology Impressions: ITS Impressions KUB X-Ray 07/22/20 17:13 IMPRESSION: Moderate volume of stool scattered in colon. No bowel obstruction. Medications Medications Current Medications Generic Name Dose Route Start Last Admin Trade Name Freq PRN Reason Stop Dose Admin Acetaminophen 650 mg 07/23/20 21:13 07/24/20 09:57 Acetaminophen 325 Mg Tablet PO 650 mg Q6H PRN Administration Headache/Pain Mild Scale (1-3) Al Hydroxide/Mg Hydroxide 30 ml 07/23/20 21:13 Magnesium Hydrox/Alum Hydrox 30 Ml Oral.Susp PO Q6H PRN Heartburn/Nausea Aspirin 81 mg 07/25/20 09:00 08/07/20 08:56 Aspirin Enteric Coated 81 Mg Tablet. PO 81 mg DAILY [facility] Administration Atorvastatin Calcium 80 mg 07/23/20 21:00 08/06/20 21:00 Atorvastatin Calcium 80 Mg Tablet PO 80 mg BEDTIME [facility] Administration Clopidogrel Bisulfate 75 mg 07/23/20 17:00 08/07/20 08:54 Clopidogrel Bisulfate 75 Mg Tablet PO 75 mg DAILY [facility] Administration Clozapine 50 mg 08/06/20 09:00 08/07/20 08:54 Clozapine 25 Mg Tablet PO 50 mg DAILY [facility] Administration Enoxaparin Sodium 40 mg 07/29/20 15:15 08/07/20 15:06 Enoxaparin Sodium 40 Mg/0.4 Ml Syringe SUBCUT 40 mg Q24H [facility] Administration Finasteride 5 mg 07/23/20 17:00 08/07/20 08:56 Finasteride 5 Mg Tablet PO 5 mg DAILY [facility] Administration Furosemide 40 mg 07/25/20 17:00 08/07/20 17:53 Furosemide 40 Mg Tablet PO 40 mg BIDWM [facility] Administration Protocol Hydroxyzine HCl 25 mg 07/23/20 21:13 07/29/20 01:31 Hydroxyzine Hcl 25 Mg Tablet PO 25 mg BEDTIME PRN Administration Anxiety Lisinopril 2.5 mg 07/23/20 17:00 08/07/20 09:09 Lisinopril 2.5 Mg Tablet PO Not Given DAILY [facility] Protocol Loperamide HCl 2 mg 07/24/20 15:43 07/24/20 15:54 Loperamide Hcl 2 Mg Capsule PO 2 mg Q4H PRN Administration Diarrhea Magnesium Hydroxide 30 ml 07/23/20 21:13 Milk Of Magnesia 30 Ml Oral.Susp PO DAILY PRN Constipation Metformin HCl 1,000 mg 07/24/20 08:00 08/07/20 17:53 Metformin Hcl 1,000 Mg Tablet PO 1,000 mg BIDWM [facility] Administration Metoprolol Succinate 75 mg 07/23/20 17:00 08/07/20 09:10 Metoprolol Succinate Er 25 Mg Tab.Er.24h PO Not Given DAILY [facility] Protocol Multi-Ingred Cream/Lotion/Oil/Oint 1 appl 07/24/20 21:00 08/07/20 09:12 Mineral Oil/Petrolatum,White 106 Gm Tube TOPICAL 1 appl BID [facility] Administration Nystatin 1 appl 07/26/20 19:25 08/07/20 09:12 Nystatin Cream 15 Gm Tube TOPICAL 1 appl DAILY [facility] Administration Protocol Omeprazole 20 mg 07/24/20 06:30 08/07/20 08:57 Omeprazole 20 Mg Capsule. PO 20 mg DAILY@0630 [facility] Administration Tamsulosin HCl 0.4 mg 07/25/20 21:00 08/06/20 21:00 Tamsulosin Hcl 0.4 Mg Capsule PO 0.4 mg BEDTIME [facility] Administration Trazodone HCl 50 mg 07/23/20 21:13 07/29/20 01:31 Trazodone Hcl 50 Mg Tablet PO 50 mg BEDTIME PRN Administration Insomnia Vitamin D 50 mcg 07/23/20 21:00 08/06/20 20:59 Cholecalciferol (Vitamin D3) 25 Mcg Tablet PO 50 mcg BEDTIME [facility] Administration Allergies Allergies Allergy/AdvReac Type Severity Reaction Status Date / Time No Known Allergies Allergy Verified 07/21/20 16:39 Assessment & Plan Assessment & Plan (1) Schizophrenia, paranoid, subchronic with acute exacerbation: Status: Acute Code(s): F20.0 - Paranoid schizophrenia Assessment and Plan: 1. continue current regimen and plan encouraged to take his medications. Continue one-to-one observation. (2) Heart failure: Status: Acute Code(s): I50.9 - Heart failure, unspecified Assessment and Plan: Continue cardiology recommendations: Greater than 50% of the session was spent on counseling and/or coordination of care Reason for contiued inpatient stay Substantial Risk for: harm to self, harm to others, inability to function, rapid decompensation and med/psych decompensation
[2020-08-07] MEDS: Cholecalciferol (Vitamin D3) 25 MCG TABLET 50 MCG PO (20:30)
[2020-08-07] MEDS: Atorvastatin Calcium 80 MG TABLET PO (20:30)
[2020-08-07 22:07] LABS: Glucose, Whole Blood 113 mg/dL (60-115)
[2020-08-08] MEDS: hydrOXYzine HCL 25 MG TABLET PO (01:45)
[2020-08-08] MEDS: traZODone HCL 50 MG TABLET PO ×2 (01:45→03:17)
[2020-08-08 06:00] VITALS: BP 128/60; PULSE 126; RESP 16
[2020-08-08] MEDS: cloZAPine 25 MG TABLET 50 MG PO (09:29)
[2020-08-08 09:35] VITALS: BP 128/60; BP 128/80; PULSE 126
[2020-08-08] MEDS: metFORMIN HCl 1,000 MG TABLET 1000 MG PO (16:12)
[2020-08-08] MEDS: Furosemide 40 MG TABLET PO (16:12)
[2020-08-08] MEDS: Enoxaparin Sodium 40 MG/0.4 ML SYRINGE SUBCUT (16:17)
[2020-08-08 17:09] VITALS: BP 123/71; PULSE 123; RESP 18; TEMP 36.8; O2SAT 95
--- NOTE | 2020-08-08 17:28 | HO.PSYCHPN ---
Subjective Subjective Date of Service: 08/08/20 Reason For Visit: psychosis Subjective Notes: Conditional Voluntary Healthcare Proxy: No Guardianship: Yes Medical Problems Affecting Mental Status: Yes Interim History: Ambulating without walker and appearing stronger and improved. Alert, no complaints today-asked if he had a suit coat available. One-to-one continues. Amendment of OP Manuelito with [facility] legal, Lorelei [phone] continues in process. Nausea reported this a.m. Zofran ordered. Tolerating Clozapine. Accepted only Zofran and Clozapine today for medications. Medication Compliance: Intermittent Side effects from medications: No Attending Groups: No Review of Systems Review of Systems Yes all other systems are reviewed and are negative Gastrointestinal: Reports nausea (Zofran prn ordered) Reports behavioral changes Psychiatric: Reports behavioral changes, Reports difficulty concentrating, Reports auditory hallucinations and Reports hallucinations Mental Status Exam Mental Status Exam Patient Appearance: Well Grooomed and Appropriate Patient Orientation: Person Level of Consciousness: Awake and Alert Patient Behavior: Appropriate, Talkative, Cooperative, Suspicious, Anxious, Fearful, Fatigued, Distractible and Good Eye Contact Mood Description: Suspicious, Withdrawn, Anxious and Flat Affect Description: Flat Patient Cognition Impaired: Yes Ability to Follow Directions: Fair Speech Pattern: Spontaneous Speech, Soft-Spoken and Delayed Memory Description: Remote Impaired, Immediate Impaired and Episodic Impaired Hallucinations: Auditory Delusions: Present Thought Process: Distracted Thought Content: positive for [place] and positive for Circumstantial Depressive Symptoms: Diff. Making Decisions Judgement: Poor Diagnostics Vital Signs (24Hr): Vital Signs - 24 hr 08/07/20 18:00 08/08/20 06:00 08/08/20 09:35 Temperature 98 F Pulse Rate 114 H 126 H 126 H Respiratory Rate 16 Blood Pressure 138/78 128/60 128/80 Pulse Oximetry 08/08/20 17:09 Temperature 98.2 F Pulse Rate 123 H Respiratory Rate 18 Blood Pressure 123/71 Pulse Oximetry 95 Body Mass Index 40.6 Labs Results: 08/02/20 08:09 08/02/20 08:09 Labs: Laboratory Results - last 48 hr 08/07/20 22:03 POC Glucose 113 Imaging Radiology Impressions: ITS Impressions KUB X-Ray 07/22/20 17:13 IMPRESSION: Moderate volume of stool scattered in colon. No bowel obstruction. Medications Medications Current Medications Generic Name Dose Route Start Last Admin Trade Name Freq PRN Reason Stop Dose Admin Acetaminophen 650 mg 07/23/20 21:13 07/24/20 09:57 Acetaminophen 325 Mg Tablet PO 650 mg Q6H PRN Administration Headache/Pain Mild Scale (1-3) Al Hydroxide/Mg Hydroxide 30 ml 07/23/20 21:13 Magnesium Hydrox/Alum Hydrox 30 Ml Oral.Susp PO Q6H PRN Heartburn/Nausea Aspirin 81 mg 07/25/20 09:00 08/08/20 09:34 Aspirin Enteric Coated 81 Mg Tablet.Dr PO Not Given DAILY [facility] Atorvastatin Calcium 80 mg 07/23/20 21:00 08/07/20 20:30 Atorvastatin Calcium 80 Mg Tablet PO 80 mg BEDTIME [facility] Administration Clopidogrel Bisulfate 75 mg 07/23/20 17:00 08/08/20 09:34 Clopidogrel Bisulfate 75 Mg Tablet PO Not Given DAILY [facility] Clozapine 50 mg 08/06/20 09:00 08/08/20 09:29 Clozapine 25 Mg Tablet PO 50 mg DAILY [facility] Administration Enoxaparin Sodium 40 mg 07/29/20 15:15 08/08/20 16:17 Enoxaparin Sodium 40 Mg/0.4 Ml Syringe SUBCUT 40 mg Q24H [facility] Administration Finasteride 5 mg 07/23/20 17:00 08/08/20 09:35 Finasteride 5 Mg Tablet PO Not Given DAILY [facility] Furosemide 40 mg 07/25/20 17:00 08/08/20 16:12 Furosemide 40 Mg Tablet PO 40 mg BIDWM [facility] Administration Protocol Hydroxyzine HCl 25 mg 07/23/20 21:13 08/08/20 01:45 Hydroxyzine Hcl 25 Mg Tablet PO 25 mg BEDTIME PRN Administration Anxiety Lisinopril 2.5 mg 07/23/20 17:00 08/08/20 09:35 Lisinopril 2.5 Mg Tablet PO Not Given DAILY [facility] Protocol Loperamide HCl 2 mg 07/24/20 15:43 07/24/20 15:54 Loperamide Hcl 2 Mg Capsule PO 2 mg Q4H PRN Administration Diarrhea Magnesium Hydroxide 30 ml 07/23/20 21:13 Milk Of Magnesia 30 Ml Oral.Susp PO DAILY PRN Constipation Metformin HCl 1,000 mg 07/24/20 08:00 08/08/20 16:12 Metformin Hcl 1,000 Mg Tablet PO 1,000 mg BIDWM [facility] Administration Metoprolol Succinate 75 mg 07/23/20 17:00 08/08/20 09:35 Metoprolol Succinate Er 25 Mg Tab.Er.24h PO Not Given DAILY [facility] Protocol Multi-Ingred Cream/Lotion/Oil/Oint 1 appl 07/24/20 21:00 08/08/20 09:38 Mineral Oil/Petrolatum,White 106 Gm Tube TOPICAL Not Given BID [facility] Nystatin 1 appl 07/26/20 19:25 08/08/20 09:38 Nystatin Cream 15 Gm Tube TOPICAL Not Given DAILY [facility] Protocol Omeprazole 20 mg 07/24/20 06:30 08/08/20 06:27 Omeprazole 20 Mg Capsule.Dr PO Not Given DAILY@0630 [facility] Ondansetron HCl 4 mg 08/08/20 09:04 08/08/20 09:27 Ondansetron Odt 4 Mg Tab.Rapdis TRANSLINGU 4 mg Q6H PRN Administration Nausea Tamsulosin HCl 0.4 mg 07/25/20 21:00 08/07/20 20:44 Tamsulosin Hcl 0.4 Mg Capsule PO Not Given BEDTIME [facility] Trazodone HCl 50 mg 07/23/20 21:13 08/08/20 03:17 Trazodone Hcl 50 Mg Tablet PO 50 mg BEDTIME PRN Administration Insomnia Vitamin D 50 mcg 07/23/20 21:00 08/07/20 20:30 Cholecalciferol (Vitamin D3) 25 Mcg Tablet PO 50 mcg BEDTIME [facility] Administration Allergies Allergies Allergy/AdvReac Type Severity Reaction Status Date / Time No Known Allergies Allergy Verified 07/21/20 16:39 Assessment & Plan Assessment & Plan (1) Schizophrenia, paranoid, subchronic with acute exacerbation: Status: Acute Code(s): F20.0 - Paranoid schizophrenia Assessment and Plan: 1. continue current regimen and plan encouraged to take his medications. Continue one-to-one observation. 2. Clozaril titration for 08/09, increase to 75 mg daily (2) Heart failure: Status: Acute Code(s): I50.9 - Heart failure, unspecified Assessment and Plan: Continue cardiology recommendations: Greater than 50% of the session was spent on counseling and/or coordination of care Reason for contiued inpatient stay Substantial Risk for: harm to self and rapid decompensation
[2020-08-08] MEDS: Atorvastatin Calcium 80 MG TABLET PO (20:59)
[2020-08-08] MEDS: Tamsulosin HCL 0.4 MG CAPSULE PO (20:59)
[2020-08-08] MEDS: Cholecalciferol (Vitamin D3) 25 MCG TABLET 50 MCG PO (20:59)
[2020-08-09 06:00] VITALS: BP 105/55; PULSE 101; RESP 20; TEMP 37.2; O2SAT 95
[2020-08-09] MEDS: cloZAPine 25 MG TABLET 75 MG PO (08:30)
[2020-08-09 09:38] LABS: Anion Gap 18 (12-20); Blood Urea Nitrogen 29 mg/dL (9-16); Calcium 9.1 mg/dL (8.4-10.2); Carbon Dioxide 29 mmol/L (22-29); Chloride 95 mmol/L (96-108); Creatinine Clr Calc Pharmacy 82.7; Estimated Glomerular Filt Rate 43; Glucose Random 142 mg/dL (60-115); Potassium 3.8 mmol/L (3.3-5.1); Sodium 138 mmol/L (135-145)
[2020-08-09] MEDS: Enoxaparin Sodium 40 MG/0.4 ML SYRINGE SUBCUT (14:35)
--- NOTE | 2020-08-09 16:35 | P.PNPSI_ITS ---
Subjective Subjective Date of Service: 08/09/20 Reason For Visit: psychosis Subjective Notes: Conditional Voluntary Healthcare Proxy: No Guardianship: No Medical Problems Affecting Mental Status: No Interim History: Remains on one-to-one. Accepting medications, isolative, responding to internal stimuli today. Clozaril increase to 75 mg today. Review of Systems Reports behavioral changes Psychiatric: Reports behavioral changes, Reports auditory hallucinations, Reports irritability, Reports mood swings, Reports paranoia and Reports hallucinations Mental Status Exam Mental Status Exam Patient Appearance: Fatigued Patient Orientation: Person and Place Level of Consciousness: Awake and Alert Patient Behavior: Guarded, Suspicious, Fatigued and Distractible Mood Description: Suspicious, Withdrawn and Constricted Affect Description: Suspicious, Withdrawn and Constricted Patient Cognition Impaired: Yes Ability to Follow Directions: Fair Speech Pattern: Spontaneous Speech Memory Description: Remote Impaired Hallucinations: Auditory Delusions: Paranoid Ideation and Present Thought Content: positive for Tangential Depressive Symptoms: Increased Irritability Judgement: Poor Diagnostics Vital Signs (24Hr): Vital Signs - 24 hr 08/08/20 17:09 08/09/20 06:00 Temperature 98.2 F 98.9 F Pulse Rate 123 H 101 H Respiratory Rate 18 20 Blood Pressure 123/71 105/55 L Pulse Oximetry 95 95 Body Mass Index 40.6 Labs Results: 08/02/20 08:09 08/09/20 09:02 Labs: Laboratory Results - last 48 hr 08/07/20 08/09/20 22:03 09:02 Sodium 138 Potassium 3.8 Chloride 95 L Carbon Dioxide 29 Anion Gap 18 BUN 29 H D Creatinine 1.63 H Estim Creat Clear Calc 82.7 Estimated GFR 43 POC Glucose 113 Random Glucose 142 H D Calcium 9.1 Imaging Radiology Impressions: ITS Impressions KUB X-Ray 07/22/20 17:13 IMPRESSION: Moderate volume of stool scattered in colon. No bowel obstruction. Medications Medications Current Medications Generic Name Dose Route Start Last Admin Trade Name Freq PRN Reason Stop Dose Admin Acetaminophen 650 mg 07/23/20 21:13 07/24/20 09:57 Acetaminophen 325 Mg Tablet PO 650 mg Q6H PRN Administration Headache/Pain Mild Scale (1-3) Al Hydroxide/Mg Hydroxide 30 ml 07/23/20 21:13 Magnesium Hydrox/Alum Hydrox 30 Ml Oral.Susp PO Q6H PRN Heartburn/Nausea Aspirin 81 mg 07/25/20 09:00 08/09/20 08:34 Aspirin Enteric Coated 81 Mg Tablet.Dr PO Not Given DAILY [facility] Atorvastatin Calcium 80 mg 07/23/20 21:00 08/08/20 20:59 Atorvastatin Calcium 80 Mg Tablet PO 80 mg BEDTIME [facility] Administration Clopidogrel Bisulfate 75 mg 07/23/20 17:00 08/09/20 08:34 Clopidogrel Bisulfate 75 Mg Tablet PO Not Given DAILY [facility] Clozapine 75 mg 08/09/20 09:00 08/09/20 08:30 Clozapine 25 Mg Tablet PO 75 mg DAILY [facility] Administration Enoxaparin Sodium 40 mg 07/29/20 15:15 08/09/20 14:35 Enoxaparin Sodium 40 Mg/0.4 Ml Syringe SUBCUT 40 mg Q24H [facility] Administration Finasteride 5 mg 07/23/20 17:00 08/09/20 08:34 Finasteride 5 Mg Tablet PO Not Given DAILY [facility] Furosemide 40 mg 07/25/20 17:00 08/09/20 08:33 Furosemide 40 Mg Tablet PO Not Given BIDWM [facility] Protocol Hydroxyzine HCl 25 mg 07/23/20 21:13 08/08/20 01:45 Hydroxyzine Hcl 25 Mg Tablet PO 25 mg BEDTIME PRN Administration Anxiety Lisinopril 2.5 mg 07/23/20 17:00 08/09/20 08:34 Lisinopril 2.5 Mg Tablet PO Not Given DAILY [facility] Protocol Loperamide HCl 2 mg 07/24/20 15:43 07/24/20 15:54 Loperamide Hcl 2 Mg Capsule PO 2 mg Q4H PRN Administration Diarrhea Magnesium Hydroxide 30 ml 07/23/20 21:13 Milk Of Magnesia 30 Ml Oral.Susp PO DAILY PRN Constipation Metformin HCl 1,000 mg 07/24/20 08:00 08/09/20 08:33 Metformin Hcl 1,000 Mg Tablet PO Not Given BIDWM [facility] Metoprolol Succinate 75 mg 07/23/20 17:00 08/09/20 08:34 Metoprolol Succinate Er 25 Mg Tab.Er.24h PO Not Given DAILY [facility] Protocol Multi-Ingred Cream/Lotion/Oil/Oint 1 appl 07/24/20 21:00 08/09/20 08:34 Mineral Oil/Petrolatum,White 106 Gm Tube TOPICAL Not Given BID [facility] Nystatin 1 appl 07/26/20 19:25 08/09/20 08:34 Nystatin Cream 15 Gm Tube TOPICAL Not Given DAILY [facility] Protocol Omeprazole 20 mg 07/24/20 06:30 08/09/20 08:32 Omeprazole 20 Mg Capsule. PO Not Given DAILY@0630 [facility] Ondansetron HCl 4 mg 08/08/20 09:04 08/08/20 09:27 Ondansetron Odt 4 Mg Tab.Rapdis TRANSLINGU 4 mg Q6H PRN Administration Nausea Tamsulosin HCl 0.4 mg 07/25/20 21:00 08/08/20 20:59 Tamsulosin Hcl 0.4 Mg Capsule PO 0.4 mg BEDTIME [facility] Administration Trazodone HCl 50 mg 07/23/20 21:13 08/08/20 03:17 Trazodone Hcl 50 Mg Tablet PO 50 mg BEDTIME PRN Administration Insomnia Vitamin D 50 mcg 07/23/20 21:00 08/08/20 20:59 Cholecalciferol (Vitamin D3) 25 Mcg Tablet PO 50 mcg BEDTIME [facility] Administration Allergies Allergies Allergy/AdvReac Type Severity Reaction Status Date / Time No Known Allergies Allergy Verified 07/21/20 16:39 Assessment & Plan Assessment & Plan (1) Schizophrenia, paranoid, subchronic with acute exacerbation: Status: Acute Code(s): F20.0 - Paranoid schizophrenia Assessment and Plan: 1. continue current regimen and plan encouraged to take his medications. Continue one-to-one observation. 2. Clozaril titration for 08/09, increase to 75 mg daily 3. Labs-Iron Profile (2) Heart failure: Status: Acute Code(s): I50.9 - Heart failure, unspecified Assessment and Plan: Continue cardiology recommendations: Greater than 50% of the session was spent on counseling and/or coordination of care Reason for contiued inpatient stay Substantial Risk for: inability to function and rapid decompensation
[2020-08-09 17:50] VITALS: PULSE 102; RESP 16; TEMP 36.6; O2SAT 95
[2020-08-09] MEDS: Furosemide 40 MG TABLET PO (18:28)
[2020-08-09] MEDS: metFORMIN HCl 1,000 MG TABLET 1000 MG PO (18:28)
[2020-08-09] MEDS: Cholecalciferol (Vitamin D3) 25 MCG TABLET 50 MCG PO (21:25)
[2020-08-09] MEDS: hydrOXYzine HCL 25 MG TABLET PO (21:25)
[2020-08-09] MEDS: Tamsulosin HCL 0.4 MG CAPSULE PO (21:25)
[2020-08-09] MEDS: Atorvastatin Calcium 80 MG TABLET PO (21:25)
[2020-08-09] MEDS: traZODone HCL 50 MG TABLET PO (21:25)
[2020-08-10 06:00] VITALS: BP 90/60; PULSE 99; RESP 16; TEMP 37.1; O2SAT 95
[2020-08-10] MEDS: cloZAPine 25 MG TABLET 75 MG PO (08:11)
--- NOTE | 2020-08-10 16:30 | P.PNPSI_ITS ---
Subjective Subjective Date of Service: 08/10/20 Reason For Visit: psychosis Subjective Notes: Conditional Voluntary Healthcare Proxy: No Guardianship: No Medical Problems Affecting Mental Status: Yes Interim History: Resting in bed. Alert, smiling, guarded. Denies issues then reports some pain, unable to identify where this is. Accepting Clozapine, refusing medical medications. Appetite is poor, limited. Agrees to nutrition consult to review options. Remains on 1:1. Medication Compliance: Intermittent Side effects from medications: No Attending Groups: No Review of Systems Reports behavioral changes Psychiatric: Reports behavioral changes, Reports change in appetite, Reports depression, Reports difficulty concentrating, Reports auditory hallucinations, Reports anhedonia, Reports paranoia and Reports hallucinations Mental Status Exam Mental Status Exam Patient Appearance: Disheveled Patient Orientation: Person and Place Level of Consciousness: Alert Patient Behavior: Appropriate, Guarded, Talkative, Cooperative, Suspicious, Avoidant, Isolative and Good Eye Contact Mood Description: Flat Affect Description: Flat Patient Cognition Impaired: No Ability to Follow Directions: Fair Speech Pattern: Spontaneous Speech and Soft-Spoken Memory Description: Episodic Impaired Hallucinations: Auditory Delusions: Present Thought Process: Distracted Thought Content: positive for Thought Blocking (??) Depressive Symptoms: Difficulty Concentrating Judgement: Poor Diagnostics Vital Signs (24Hr): Vital Signs - 24 hr 08/09/20 17:50 08/10/20 06:00 Temperature 97.8 F 98.7 F Pulse Rate 102 H 99 Respiratory Rate 16 16 Blood Pressure 90/60 Pulse Oximetry 95 95 Body Mass Index 40.6 Labs Results: 08/02/20 08:09 08/09/20 09:02 Labs: Laboratory Results - last 48 hr 08/09/20 09:02 Sodium 138 Potassium 3.8 Chloride 95 L Carbon Dioxide 29 Anion Gap 18 BUN 29 H D Creatinine 1.63 H Estim Creat Clear Calc 82.7 Estimated GFR 43 Random Glucose 142 H D Calcium 9.1 Imaging Radiology Impressions: ITS Impressions KUB X-Ray 07/22/20 17:13 IMPRESSION: Moderate volume of stool scattered in colon. No bowel obstruction. Medications Medications Current Medications Generic Name Dose Route Start Last Admin Trade Name Freq PRN Reason Stop Dose Admin Acetaminophen 650 mg 07/23/20 21:13 07/24/20 09:57 Acetaminophen 325 Mg Tablet PO 650 mg Q6H PRN Administration Headache/Pain Mild Scale (1-3) Al Hydroxide/Mg Hydroxide 30 ml 07/23/20 21:13 Magnesium Hydrox/Alum Hydrox 30 Ml Oral.Susp PO Q6H PRN Heartburn/Nausea Aspirin 81 mg 07/25/20 09:00 08/10/20 08:24 Aspirin Enteric Coated 81 Mg Tablet.Dr PO Not Given DAILY [facility] Atorvastatin Calcium 80 mg 07/23/20 21:00 08/09/20 21:25 Atorvastatin Calcium 80 Mg Tablet PO 80 mg BEDTIME [facility] Administration Clopidogrel Bisulfate 75 mg 07/23/20 17:00 08/10/20 08:24 Clopidogrel Bisulfate 75 Mg Tablet PO Not Given DAILY [facility] Clozapine 75 mg 08/09/20 09:00 08/10/20 08:11 Clozapine 25 Mg Tablet PO 75 mg DAILY [facility] Administration Enoxaparin Sodium 40 mg 07/29/20 15:15 08/09/20 14:35 Enoxaparin Sodium 40 Mg/0.4 Ml Syringe SUBCUT 40 mg Q24H [facility] Administration Finasteride 5 mg 07/23/20 17:00 08/10/20 08:24 Finasteride 5 Mg Tablet PO Not Given DAILY [facility] Furosemide 40 mg 07/25/20 17:00 08/10/20 08:24 Furosemide 40 Mg Tablet PO Not Given BIDWM [facility] Protocol Hydroxyzine HCl 25 mg 07/23/20 21:13 08/09/20 21:25 Hydroxyzine Hcl 25 Mg Tablet PO 25 mg BEDTIME PRN Administration Anxiety Lisinopril 2.5 mg 07/23/20 17:00 08/10/20 08:24 Lisinopril 2.5 Mg Tablet PO Not Given DAILY [facility] Protocol Loperamide HCl 2 mg 07/24/20 15:43 07/24/20 15:54 Loperamide Hcl 2 Mg Capsule PO 2 mg Q4H PRN Administration Diarrhea Magnesium Hydroxide 30 ml 07/23/20 21:13 Milk Of Magnesia 30 Ml Oral.Susp PO DAILY PRN Constipation Metformin HCl 1,000 mg 07/24/20 08:00 08/10/20 08:24 Metformin Hcl 1,000 Mg Tablet PO Not Given BIDWM [facility] Metoprolol Succinate 75 mg 07/23/20 17:00 08/10/20 08:25 Metoprolol Succinate Er 25 Mg Tab.Er.24h PO Not Given DAILY [facility] Protocol Multi-Ingred Cream/Lotion/Oil/Oint 1 appl 07/24/20 21:00 08/10/20 08:25 Mineral Oil/Petrolatum,White 106 Gm Tube TOPICAL Not Given BID [facility] Nystatin 1 appl 07/26/20 19:25 08/10/20 08:25 Nystatin Cream 15 Gm Tube TOPICAL Not Given DAILY [facility] Protocol Omeprazole 20 mg 07/24/20 06:30 08/10/20 08:24 Omeprazole 20 Mg Capsule.Dr PO Not Given DAILY@0630 [facility] Ondansetron HCl 4 mg 08/08/20 09:04 08/08/20 09:27 Ondansetron Odt 4 Mg Tab.Rapdis TRANSLINGU 4 mg Q6H PRN Administration Nausea Tamsulosin HCl 0.4 mg 07/25/20 21:00 08/09/20 21:25 Tamsulosin Hcl 0.4 Mg Capsule PO 0.4 mg BEDTIME [facility] Administration Trazodone HCl 50 mg 07/23/20 21:13 08/09/20 21:25 Trazodone Hcl 50 Mg Tablet PO 50 mg BEDTIME PRN Administration Insomnia Vitamin D 50 mcg 07/23/20 21:00 08/09/20 21:25 Cholecalciferol (Vitamin D3) 25 Mcg Tablet PO 50 mcg BEDTIME [facility] Administration Allergies Allergies Allergy/AdvReac Type Severity Reaction Status Date / Time No Known Allergies Allergy Verified 07/21/20 16:39 Assessment & Plan Assessment & Plan (1) Schizophrenia, paranoid, subchronic with acute exacerbation: Status: Acute Code(s): F20.0 - Paranoid schizophrenia Assessment and Plan: 1. continue current regimen and plan encouraged to take his medications. Continue one-to-one observation. 2. Clozaril titration for 08/09, increase to 75 mg daily 3. Labs-WBC, ANC, BMP 4. Nutritonal Consult (2) Heart failure: Status: Acute Code(s): I50.9 - Heart failure, unspecified Assessment and Plan: Continue cardiology recommendations: Greater than 50% of the session was spent on counseling and/or coordination of care Reason for contiued inpatient stay Substantial Risk for: harm to self, inability to function, rapid decompensation and med/psych decompensation
[2020-08-11] MEDS: traZODone HCL 50 MG TABLET PO (00:21)
[2020-08-11] MEDS: hydrOXYzine HCL 25 MG TABLET PO (00:21)
--- NOTE | 2020-08-11 05:00 | PC.NURSE ---
Pt awake in the hallway at start of shift. Refused to return to his room to sleep. It's not my room. When reassured that that he had his own room, pt replied they're talking to me. I see them. Pt agreed to sit in a recliner that was wheeled into the hallway from his room. Pt received medication for sleep at 00:30 with no positive effect. Pt stated that he would not return to his room because I hurt melida Nam. That's Anil Browning's room. At 0230 Pt agreed to be wheeled into his room. Pt confirmed that he did not see any other person in his room and remained in the recliner for the rest of the shift. He remained awake for the rest of the shift.
[2020-08-11] MEDS: Finasteride 5 MG TABLET PO (08:39)
[2020-08-11] MEDS: Furosemide 40 MG TABLET PO (08:39)
[2020-08-11] MEDS: Omeprazole 20 MG CAPSULE.DR PO (08:39)
[2020-08-11] MEDS: metFORMIN HCl 1,000 MG TABLET 1000 MG PO ×2 (08:39→17:26)
[2020-08-11] MEDS: cloZAPine 25 MG TABLET 75 MG PO (08:39)
[2020-08-11] MEDS: Clopidogrel Bisulfate 75 MG TABLET PO (08:39)
[2020-08-11] MEDS: Aspirin Enteric Coated 81 MG TABLET.DR PO (08:39)
[2020-08-11 08:43] VITALS: BP 131/56; PULSE 107
[2020-08-11] MEDS: lisinopriL 2.5 MG TABLET PO (08:43)
[2020-08-11] MEDS: Metoprolol Succinate ER 25 MG TAB.ER.24H 75 MG PO (08:43)
[2020-08-11] MEDS: Mineral Oil/Petrolatum,White 106 GM Tube 1 APPL TOPICAL (09:43)
[2020-08-11] MEDS: Nystatin Cream 15 GM TUBE 1 APPL TOPICAL (09:43)
[2020-08-11] MEDS: Acetaminophen 325 MG TABLET 650 MG PO (12:28)
--- NOTE | 2020-08-11 13:14 | HO.PSYCHPN ---
Subjective Subjective Date of Service: 08/11/20 Reason For Visit: psychosis Interim History: Pt discussed with nursing this morning. Per nursing, last night he refused to go to his room because he reported seeing Greg Browning. He also reported that he was ready to return home and was leaving today. He refused medical medication but did take clozaril yesterday and this morning. Today, pt agreed to take shower. He attended first group since he was admitted and did participate to some extend in structure group. He reports that voices are telling him that Anil Browning is in his room and he can't go there. He also reports that he saw him. He reports he is taking some medications but does not think he needs any medications. He denies SI/HI. He continues to present as not able to care for self unless receiving significant support from staff. Remains on 1:1 due to fall risk and lack of awareness. Review of Systems Review of Systems Constitutional: No Fever, No Chills ENT/Mouth: No Ear Pain, No Nasal Congestion, No sore throat Eyes: No Eye Pain, No Swelling, No Redness Cardiovascular: No Chest Pain, No SOB Respiratory: No Cough, No Sputum, No Dyspnea Gastrointestinal: No Nausea, No Vomiting, No Diarrhea, No Hematochezia, No Melena Genitourinary: No Dysuria, No Urinary Frequency, No Hematuria Musculoskeletal: No Myalgias Skin: No Skin Lesions, No rash; legs with edema bilat and light pink; not warm or painful. abraisoons on knee - no sign of infection Neuro: No Weakness, No Numbness, No Paresthesias, No Dizziness, No Headache Psych: Refusal of [place] orders medications, No Anxiety, no Depression, no SI/HI Heme/Lymph: No Lymphadenopathy Endocrine: No Polyuria, No Polydipsia Yes all other systems are reviewed and are negative and Unobtainable due to mental status Constitutional: Reports anorexia, Reports daytime sleepiness, Reports difficulty sleeping, Reports fatigue, Reports lethargy, Reports malaise and Reports poor appetite Cardiovascular: Denies chest pain and Denies lightheadedness Gastrointestinal: Reports abdominal pain, Reports constipation and Reports nausea (Zofran prn ordered) Reports behavioral changes Psychiatric: Reports abnormal sleep pattern, Reports behavioral changes, Reports change in appetite, Reports depression, Reports difficulty concentrating, Reports auditory hallucinations, Reports irritability, Reports anhedonia, Reports mood swings, Reports paranoia and Reports hallucinations Endocrine: Reports fatigue Mental Status Exam Mental Status Exam Narrative: Appearance: disheveled, restless Behavior: restless, guarded, dismissive Psychomotor: less involuntary bilateral upper extremity movement Speech: speech is slightly more clear, less delay in response rate and more spontaneous. Soft tone. TP: single word answers TC:poverty of thought Mood: okay Affect:restless, anxious, irritable SI:denies HI:denies AH/VH:appears internally preoccupied Delusions:guarded Insight/judgment:impaired Memory/cog: alert, oriented to month, year not to situation nor place. Diagnostics Vital Signs (24Hr): Vital Signs - 24 hr 08/11/20 08:43 Pulse Rate 107 H Blood Pressure 131/56 L Body Mass Index 40.6 Labs Results: 08/02/20 08:09 08/09/20 09:02 Imaging Radiology Impressions: ITS Impressions KUB X-Ray 07/22/20 17:13 IMPRESSION: Moderate volume of stool scattered in colon. No bowel obstruction. Medications Medications Current Medications Generic Name Dose Route Start Last Admin Trade Name Freq PRN Reason Stop Dose Admin Acetaminophen 650 mg 07/23/20 21:13 08/11/20 12:28 Acetaminophen 325 Mg Tablet PO 650 mg Q6H PRN Administration Headache/Pain Mild Scale (1-3) Al Hydroxide/Mg Hydroxide 30 ml 07/23/20 21:13 Magnesium Hydrox/Alum Hydrox 30 Ml Oral.Susp PO Q6H PRN Heartburn/Nausea Aspirin 81 mg 07/25/20 09:00 08/11/20 08:39 Aspirin Enteric Coated 81 Mg Tablet. PO 81 mg DAILY [facility]BR[facility] Administration Atorvastatin Calcium 80 mg 07/23/20 21:00 08/10/20 20:16 Atorvastatin Calcium 80 Mg Tablet PO Not Given BEDTIME [facility] Clopidogrel Bisulfate 75 mg 07/23/20 17:00 08/11/20 08:39 Clopidogrel Bisulfate 75 Mg Tablet PO 75 mg DAILY [facility] Administration Clozapine 100 mg 08/12/20 09:00 Clozapine 100 Mg Tablet PO DAILY [facility] Enoxaparin Sodium 40 mg 07/29/20 15:15 08/10/20 17:41 Enoxaparin Sodium 40 Mg/0.4 Ml Syringe SUBCUT Not Given Q24H [facility] Finasteride 5 mg 07/23/20 17:00 08/11/20 08:39 Finasteride 5 Mg Tablet PO 5 mg DAILY [facility] Administration Furosemide 40 mg 07/25/20 17:00 08/11/20 08:39 Furosemide 40 Mg Tablet PO 40 mg BIDWM [facility] Administration Protocol Hydroxyzine HCl 25 mg 07/23/20 21:13 08/11/20 00:21 Hydroxyzine Hcl 25 Mg Tablet PO 25 mg BEDTIME PRN Administration Anxiety Lisinopril 2.5 mg 07/23/20 17:00 08/11/20 08:43 Lisinopril 2.5 Mg Tablet PO 2.5 mg DAILY [facility] Administration Protocol Loperamide HCl 2 mg 07/24/20 15:43 07/24/20 15:54 Loperamide Hcl 2 Mg Capsule PO 2 mg Q4H PRN Administration Diarrhea Magnesium Hydroxide 30 ml 07/23/20 21:13 Milk Of Magnesia 30 Ml Oral.Susp PO DAILY PRN Constipation Metformin HCl 1,000 mg 07/24/20 08:00 08/11/20 08:39 Metformin Hcl 1,000 Mg Tablet PO 1,000 mg BIDWM [facility] Administration Metoprolol Succinate 75 mg 07/23/20 17:00 08/11/20 08:43 Metoprolol Succinate Er 25 Mg Tab.Er.24h PO 75 mg DAILY [facility] Administration Protocol Multi-Ingred Cream/Lotion/Oil/Oint 1 appl 07/24/20 21:00 08/11/20 09:43 Mineral Oil/Petrolatum,White 106 Gm Tube TOPICAL 1 appl BID [facility] Administration Nystatin 1 appl 07/26/20 19:25 08/11/20 09:43 Nystatin Cream 15 Gm Tube TOPICAL 1 appl DAILY [facility] Administration Protocol Omeprazole 20 mg 07/24/20 06:30 08/11/20 08:39 Omeprazole 20 Mg Capsule. PO 20 mg DAILY@0630 [facility] Administration Ondansetron HCl 4 mg 08/08/20 09:04 08/08/20 09:27 Ondansetron Odt 4 Mg Tab.Rapdis TRANSLINGU 4 mg Q6H PRN Administration Nausea Tamsulosin HCl 0.4 mg 07/25/20 21:00 08/10/20 20:16 Tamsulosin Hcl 0.4 Mg Capsule PO Not Given BEDTIME [facility] Trazodone HCl 50 mg 07/23/20 21:13 08/11/20 00:21 Trazodone Hcl 50 Mg Tablet PO 50 mg BEDTIME PRN Administration Insomnia Vitamin D 50 mcg 07/23/20 21:00 08/10/20 20:16 Cholecalciferol (Vitamin D3) 25 Mcg Tablet PO Not Given BEDTIME [facility] Allergies Allergies Allergy/AdvReac Type Severity Reaction Status Date / Time No Known Allergies Allergy Verified 07/21/20 16:39 Assessment & Plan Assessment & Plan (1) Schizophrenia, paranoid, subchronic with acute exacerbation: Status: Acute Code(s): F20.0 - Paranoid schizophrenia Assessment and Plan: 1. continue current regimen and plan encouraged to take his medications. Continue one-to-one observation. 2. Clozaril titration for 08/11, increase to 100 mg daily 3. Labs-WBC, ANC, BMP (2) Heart failure: Status: Acute Code(s): I50.9 - Heart failure, unspecified Assessment and Plan: Continue cardiology recommendations: Greater than 50% of the session was spent on counseling and/or coordination of care Reason for contiued inpatient stay Substantial Risk for: harm to self and inability to function
[2020-08-11] MEDS: cloZAPine 25 MG TABLET PO (14:47)
[2020-08-11 16:45] VITALS: BP 91/50; PULSE 83
--- NOTE | 2020-08-12 00:11 | PC.NURSE ---
Pt refused blood work ordered this evening; Absolute Neutrophil count STAT. Pt education provided as to importance of blood work, pt continued to refuse.
[2020-08-12] MEDS: cloZAPine 100 MG TABLET PO (08:37)
--- NOTE | 2020-08-12 21:06 | HO.PSYCHPN ---
Subjective Subjective Date of Service: 08/12/20 Reason For Visit: psychosis Subjective Notes: Conditional Voluntary Healthcare Proxy: No Guardianship: No Medical Problems Affecting Mental Status: No Interim History: Pt is alert, interactive when approached. Denies issues. Tells team he has dry mouth and this effects appetite. Await WBC/ANC results for clozapine titraiton Medication Compliance: Intermittent Side effects from medications: Yes (dry mucous membranes) Attending Groups: No Review of Systems Psychiatric: Reports depression and Reports paranoia Mental Status Exam Mental Status Exam Patient Appearance: Fatigued Patient Orientation: Person and Place Level of Consciousness: Alert Patient Behavior: Appropriate, Talkative and Cooperative Mood Description: Constricted Affect Description: Flat Patient Cognition Impaired: No Ability to Follow Directions: Good Speech Pattern: Spontaneous Speech Memory Description: Remote Impaired and Episodic Impaired Hallucinations: Auditory Thought Process: Distracted Thought Content: positive for [place] Depressive Symptoms: Loss of Energy and Difficulty Concentrating Judgement: Poor Diagnostics Vital Signs (24Hr): Body Mass Index 40.6 Labs Results: 08/02/20 08:09 08/09/20 09:02 Imaging Radiology Impressions: ITS Impressions KUB X-Ray 07/22/20 17:13 IMPRESSION: Moderate volume of stool scattered in colon. No bowel obstruction. Medications Medications Current Medications Generic Name Dose Route Start Last Admin Trade Name Freq PRN Reason Stop Dose Admin Acetaminophen 650 mg 07/23/20 21:13 08/11/20 12:28 Acetaminophen 325 Mg Tablet PO 650 mg Q6H PRN Administration Headache/Pain Mild Scale (1-3) Al Hydroxide/Mg Hydroxide 30 ml 07/23/20 21:13 Magnesium Hydrox/Alum Hydrox 30 Ml Oral.Susp PO Q6H PRN Heartburn/Nausea Aspirin 81 mg 07/25/20 09:00 08/12/20 08:40 Aspirin Enteric Coated 81 Mg Tablet. PO Not Given DAILY [facility] Atorvastatin Calcium 80 mg 07/23/20 21:00 08/11/20 21:13 Atorvastatin Calcium 80 Mg Tablet PO Not Given BEDTIME [facility] Clopidogrel Bisulfate 75 mg 07/23/20 17:00 08/12/20 08:40 Clopidogrel Bisulfate 75 Mg Tablet PO Not Given DAILY [facility] Clozapine 100 mg 08/12/20 09:00 08/12/20 08:37 Clozapine 100 Mg Tablet PO 100 mg DAILY AMBR[facility] Administration Enoxaparin Sodium 40 mg 07/29/20 15:15 08/12/20 14:48 Enoxaparin Sodium 40 Mg/0.4 Ml Syringe SUBCUT Not Given Q24H [facility] Finasteride 5 mg 07/23/20 17:00 08/12/20 08:41 Finasteride 5 Mg Tablet PO Not Given DAILY [facility] Hydroxyzine HCl 25 mg 07/23/20 21:13 08/11/20 00:21 Hydroxyzine Hcl 25 Mg Tablet PO 25 mg BEDTIME PRN Administration Anxiety Loperamide HCl 2 mg 07/24/20 15:43 07/24/20 15:54 Loperamide Hcl 2 Mg Capsule PO 2 mg Q4H PRN Administration Diarrhea Magnesium Hydroxide 30 ml 07/23/20 21:13 Milk Of Magnesia 30 Ml Oral.Susp PO DAILY PRN Constipation Metformin HCl 1,000 mg 07/24/20 08:00 08/12/20 17:36 Metformin Hcl 1,000 Mg Tablet PO Not Given BIDWM [facility] Metoprolol Succinate 75 mg 07/23/20 17:00 08/12/20 08:43 Metoprolol Succinate Er 25 Mg Tab.Er.24h PO Not Given DAILY [facility] Protocol Multi-Ingred Cream/Lotion/Oil/Oint 1 appl 07/24/20 21:00 08/12/20 08:43 Mineral Oil/Petrolatum,White 106 Gm Tube TOPICAL Not Given BID [facility] Nystatin 1 appl 07/26/20 19:25 08/12/20 08:44 Nystatin Cream 15 Gm Tube TOPICAL Not Given DAILY [facility] Protocol Omeprazole 20 mg 07/24/20 06:30 08/12/20 08:39 Omeprazole 20 Mg Capsule. PO Not Given DAILY@0630 [facility] Ondansetron HCl 4 mg 08/08/20 09:04 08/08/20 09:27 Ondansetron Odt 4 Mg Tab.Rapdis TRANSLINGU 4 mg Q6H PRN Administration Nausea Saliva Substitute 1 spray 08/12/20 15:06 Dry Mouth [place] 30 Ml [place] MUCOUS MEM Q2H PRN Dry Mouth Tamsulosin HCl 0.4 mg 07/25/20 21:00 08/11/20 21:13 Tamsulosin Hcl 0.4 Mg Capsule PO Not Given BEDTIME [facility] Trazodone HCl 50 mg 07/23/20 21:13 08/11/20 00:21 Trazodone Hcl 50 Mg Tablet PO 50 mg BEDTIME PRN Administration Insomnia Vitamin D 50 mcg 07/23/20 21:00 08/11/20 21:13 Cholecalciferol (Vitamin D3) 25 Mcg Tablet PO Not Given BEDTIME [facility] Allergies Allergies Allergy/AdvReac Type Severity Reaction Status Date / Time No Known Allergies Allergy Verified 07/21/20 16:39 Assessment & Plan Assessment & Plan (1) Schizophrenia, paranoid, subchronic with acute exacerbation: Status: Acute Code(s): F20.0 - Paranoid schizophrenia Assessment and Plan: 1. continue current regimen and plan encouraged to take his medications. Continue one-to-one observation. 2. Clozaril 100 mg daily (2) Heart failure: Status: Acute Code(s): I50.9 - Heart failure, unspecified Assessment and Plan: Continue cardiology recommendations: Greater than 50% of the session was spent on counseling and/or coordination of care Reason for contiued inpatient stay Substantial Risk for: inability to function and med/psych decompensation
[2020-08-12] MEDS: Cholecalciferol (Vitamin D3) 25 MCG TABLET 50 MCG PO (21:22)
[2020-08-13 06:00] VITALS: BP 118/76; PULSE 102; RESP 18; TEMP 36.3; O2SAT 95
[2020-08-13] MEDS: Clopidogrel Bisulfate 75 MG TABLET PO (10:29)
--- NOTE | 2020-08-13 12:49 | HO.PSYCHPN ---
Subjective Subjective Date of Service: 08/13/20 Reason For Visit: psychosis Subjective Notes: Conditional Voluntary Healthcare Proxy: No Guardianship: Yes (commuity ammendment pending) Medical Problems Affecting Mental Status: Yes Interim History: BUN 29, Creat 1.63- hospitalist mandi requested, some increase in appetite. Refusal of labs for Clozapine, Refusal of POC, visable in milieu, walking without a walker, consistently asking to leave, believes he has a legal appt and the tribal judge has told him to leave. Poor sleep last evening. Medication Compliance: No Side effects from medications: No Attending Groups: No Review of Systems Constitutional: Reports other (dehydration) Reports behavioral changes and Reports confusion Psychiatric: Reports abnormal sleep pattern, Reports behavioral changes, Reports change in appetite, Reports confusion, Reports difficulty concentrating, Reports auditory hallucinations, Reports irritability, Reports paranoia and Reports hallucinations Mental Status Exam Mental Status Exam Patient Appearance: Fatigued and Disheveled Patient Orientation: Person Level of Consciousness: Awake and Alert Patient Behavior: Guarded, Talkative, Suspicious, Restless, Wandering, Resistive to Care, Fatigued, Distractible, Isolative and Good Eye Contact Mood Description: Constricted Affect Description: Constricted Patient Cognition Impaired: Yes Ability to Follow Directions: Fair Speech Pattern: Perseverating, Spontaneous Speech and Soft-Spoken Memory Description: Remote Impaired, Build[employer] Impaired and Episodic Impaired Hallucinations: Auditory Delusions: Paranoid Ideation and Present Thought Process: Illogical and Distracted Thought Content: positive for Disoriented, positive for Circumstantial, positive for Loose Associations and positive for Tangential Depressive Symptoms: Insomnia, Difficulty Sleeping and Changes in Appetite Judgement: Poor Diagnostics Vital Signs (24Hr): Vital Signs - 24 hr 08/13/20 06:00 Temperature 97.4 F Pulse Rate 102 H Respiratory Rate 18 Blood Pressure 118/76 Pulse Oximetry 95 Body Mass Index 40.6 Labs Results: 08/02/20 08:09 08/09/20 09:02 Imaging Radiology Impressions: ITS Impressions KUB X-Ray 07/22/20 17:13 IMPRESSION: Moderate volume of stool scattered in colon. No bowel obstruction. Medications Medications Current Medications Generic Name Dose Route Start Last Admin Trade Name Freq PRN Reason Stop Dose Admin Acetaminophen 650 mg 07/23/20 21:13 08/11/20 12:28 Acetaminophen 325 Mg Tablet PO 650 mg Q6H PRN Administration Headache/Pain Mild Scale (1-3) Al Hydroxide/Mg Hydroxide 30 ml 07/23/20 21:13 Magnesium Hydrox/Alum Hydrox 30 Ml Oral.Susp PO Q6H PRN Heartburn/Nausea Aspirin 81 mg 07/25/20 09:00 08/13/20 10:37 Aspirin Enteric Coated 81 Mg Tablet.Dr PO Not Given DAILY [facility] Atorvastatin Calcium 80 mg 07/23/20 21:00 08/12/20 21:26 Atorvastatin Calcium 80 Mg Tablet PO Not Given BEDTIME [facility] Clopidogrel Bisulfate 75 mg 07/23/20 17:00 08/13/20 10:29 Clopidogrel Bisulfate 75 Mg Tablet PO 75 mg DAILY AMBROCIO Administration Clozapine 100 mg 08/12/20 09:00 08/13/20 10:37 Clozapine 100 Mg Tablet PO Not Given DAILY [facility] Enoxaparin Sodium 40 mg 07/29/20 15:15 08/12/20 14:48 Enoxaparin Sodium 40 Mg/0.4 Ml Syringe SUBCUT Not Given Q24H [facility] Finasteride 5 mg 07/23/20 17:00 08/13/20 10:38 Finasteride 5 Mg Tablet PO Not Given DAILY [facility] Hydroxyzine HCl 25 mg 07/23/20 21:13 08/11/20 00:21 Hydroxyzine Hcl 25 Mg Tablet PO 25 mg BEDTIME PRN Administration Anxiety Loperamide HCl 2 mg 07/24/20 15:43 07/24/20 15:54 Loperamide Hcl 2 Mg Capsule PO 2 mg Q4H PRN Administration Diarrhea Magnesium Hydroxide 30 ml 07/23/20 21:13 Milk Of Magnesia 30 Ml Oral.Susp PO DAILY PRN Constipation Metformin HCl 1,000 mg 07/24/20 08:00 08/13/20 10:37 Metformin Hcl 1,000 Mg Tablet PO Not Given BIDWM [facility] Metoprolol Succinate 75 mg 07/23/20 17:00 08/13/20 10:38 Metoprolol Succinate Er 25 Mg Tab.Er.24h PO Not Given DAILY [facility] Protocol Multi-Ingred Cream/Lotion/Oil/Oint 1 appl 07/24/20 21:00 08/13/20 10:38 Mineral Oil/Petrolatum,White 106 Gm Tube TOPICAL Not Given BID [facility] Nystatin 1 appl 07/26/20 19:25 08/13/20 10:38 Nystatin Cream 15 Gm Tube TOPICAL Not Given DAILY [facility] Protocol Omeprazole 20 mg 07/24/20 06:30 08/13/20 10:36 Omeprazole 20 Mg Capsule. PO Not Given DAILY@0630 [facility] Ondansetron HCl 4 mg 08/08/20 09:04 08/08/20 09:27 Ondansetron Odt 4 Mg Tab.Rapdis TRANSLINGU 4 mg Q6H PRN Administration Nausea Saliva Substitute 1 spray 08/12/20 15:06 Dry Mouth [place] 30 Ml [place] MUCOUS MEM Q2H PRN Dry Mouth Tamsulosin HCl 0.4 mg 07/25/20 21:00 08/12/20 21:26 Tamsulosin Hcl 0.4 Mg Capsule PO Not Given BEDTIME [facility] Trazodone HCl 50 mg 07/23/20 21:13 08/11/20 00:21 Trazodone Hcl 50 Mg Tablet PO 50 mg BEDTIME PRN Administration Insomnia Vitamin D 50 mcg 07/23/20 21:00 08/12/20 21:22 Cholecalciferol (Vitamin D3) 25 Mcg Tablet PO 50 mcg BEDTIME [facility] Administration Allergies Allergies Allergy/AdvReac Type Severity Reaction Status Date / Time No Known Allergies Allergy Verified 07/21/20 16:39 Assessment & Plan Assessment & Plan (1) Schizophrenia, paranoid, subchronic with acute exacerbation: Status: Acute Code(s): F20.0 - Paranoid schizophrenia Assessment and Plan: 1. continue current regimen and plan encouraged to take his medications. Continue one-to-one observation. 2. Clozaril 100 mg daily 3. Labs 08/14/20. 4. Guardianship paperwork reviewed and returned to [facility] (2) Heart failure: Status: Acute Code(s): I50.9 - Heart failure, unspecified Assessment and Plan: Continue cardiology recommendations: Greater than 50% of the session was spent on counseling and/or coordination of care Reason for contiued inpatient stay Substantial Risk for: harm to self, harm to others, inability to function, rapid decompensation and med/psych decompensation
--- NOTE | 2020-08-13 13:58 | MHC.CLN ---
NUTRITION CONSULT CONSULT DUE TO PATIENT EATING POORLY. FAMILIAR WITH PATIENT AND HISTORY OF FOOD PREFERENCES. CONFIRMED WITH PATIENT THAT HE LIKES TO EAT PEANUT BUTTER AND JELLY SANDWICHES. WILL CONTINUE TO SEND REGULAR MEALS PLUS KITCHEN WILL ADD ONE PEANUT BUTTER AND JELLY SANDWICH EACH LUNCH AND SUPPER. PATIENT STATED THAT HIS APPETITE IS GETTING BETTER.
--- NOTE | 2020-08-13 16:34 | P.CONIM_ITS ---
History of Present Illness Data of Consult Service Date: 08/13/20 Primary Care Provider: Alexa Andre MD HPI Reason for consult: scot 65M poor historian, in inpatient psychiatry, consult requested for SCOT and bilat eral lower extremity edema with RLE erythema. patient is not actively complaining of anything, denies changes in his legs, denies sob, chest pain, fever, chills. denies cardiac history, but appears to be on lasix for CHF normally. creatining was 1.63 on 08/09/20, lasix held, repeat pending. Review of Systems Review of Systems: Constitutional: Denies fever, denies Chills Eyes: denies blurry vision ENT: denies sore throat CVS: denies chest pain Respiratory: Denies dyspnea GI: no abdominal pain : denies dysuria MSK: denies neck pain Skin: denies rash Neuro: denies specific motor weakness Endocrine: denies heat/cold intoleratnce Hematologic: denies easy bleeding Allergy: denies hives [facility] Medical History Anemia Diabetes Heart failure HTN (hypertension) Hyperlipidemia Morbid obesity Peripheral vascular disease Pneumonia Schizophrenia Family history: reviewed and not pertinent Social History Household Members: Other Housing: [facility] Alcohol intake: unknown Smoked in Last 30 Days: No Second Hand Smoke Exposure: No Use of substances other than those prescribed or required for medical reasons: No Currently Displaying Signs/Symptoms of Drug Intoxication Withdrawal: No Have you been hit, kicked, punched, or otherwise hurt by someone within the past year? If so, by whom?: No Do you feel safe in your current relationship?: No Current Relationship Is there a partner from a previous relationship who is making you feel unsafe now?: No Are you made to feel afraid or neglected: No Spiritual Healthcare Practices: none identified Advance Directives: No Advance Directives Information Provided: Yes Do you have thoughts of harming others: None Do you have a plan to hurt others: No Plan Recently lost weight without trying: No How much weight loss: Not applicable Eating poorly because of decreased appetite: Yes Nutrition screen score: 1 Nutrition Risks: No Nutritional Risk Poor oral hygiene: Yes service: No Sexual orientation: Straight/Heterosexual Meds Allergies Allergy/AdvReac Type Severity Reaction Status Date / Time No Known Allergies Allergy Verified 07/21/20 16:39 Active Medications: Current Medications Generic Name Dose Route Start Last Admin Trade Name Jaret PRN Reason Stop Dose Admin Acetaminophen 650 mg 07/23/20 21:13 08/11/20 12:28 Acetaminophen 325 Mg Tablet PO 650 mg Q6H PRN Administration Headache/Pain Mild Scale (1-3) Al Hydroxide/Mg Hydroxide 30 ml 07/23/20 21:13 Magnesium Hydrox/Alum Hydrox 30 Ml Oral.Susp PO Q6H PRN Heartburn/Nausea Aspirin 81 mg 07/25/20 09:00 08/13/20 10:37 Aspirin Enteric Coated 81 Mg Tablet.Dr PO Not Given DAILY [facility] Atorvastatin Calcium 80 mg 07/23/20 21:00 08/12/20 21:26 Atorvastatin Calcium 80 Mg Tablet PO Not Given BEDTIME [facility] Clopidogrel Bisulfate 75 mg 07/23/20 17:00 08/13/20 10:29 Clopidogrel Bisulfate 75 Mg Tablet PO 75 mg DAILY [facility] Administration Clozapine 100 mg 08/12/20 09:00 08/13/20 10:37 Clozapine 100 Mg Tablet PO Not Given DAILY [facility] Enoxaparin Sodium 40 mg 07/29/20 15:15 08/12/20 14:48 Enoxaparin Sodium 40 Mg/0.4 Ml Syringe SUBCUT Not Given Q24H [facility] Finasteride 5 mg 07/23/20 17:00 08/13/20 10:38 Finasteride 5 Mg Tablet PO Not Given DAILY [facility] Hydroxyzine HCl 25 mg 07/23/20 21:13 08/11/20 00:21 Hydroxyzine Hcl 25 Mg Tablet PO 25 mg BEDTIME PRN Administration Anxiety Loperamide HCl 2 mg 07/24/20 15:43 07/24/20 15:54 Loperamide Hcl 2 Mg Capsule PO 2 mg Q4H PRN Administration Diarrhea Magnesium Hydroxide 30 ml 07/23/20 21:13 Milk Of Magnesia 30 Ml Oral.Susp PO DAILY PRN Constipation Metformin HCl 1,000 mg 07/24/20 08:00 08/13/20 10:37 Metformin Hcl 1,000 Mg Tablet PO Not Given BIDWM [facility] Metoprolol Succinate 75 mg 07/23/20 17:00 08/13/20 10:38 Metoprolol Succinate Er 25 Mg Tab.Er.24h PO Not Given DAILY [facility] Protocol Multi-Ingred Cream/Lotion/Oil/Oint 1 appl 07/24/20 21:00 08/13/20 10:38 Mineral Oil/Petrolatum,White 106 Gm Tube TOPICAL Not Given BID [facility] Nystatin 1 appl 07/26/20 19:25 08/13/20 10:38 Nystatin Cream 15 Gm Tube TOPICAL Not Given DAILY [facility] Protocol Omeprazole 20 mg 07/24/20 06:30 08/13/20 10:36 Omeprazole 20 Mg Capsule. PO Not Given DAILY@0630 [facility] Ondansetron HCl 4 mg 08/08/20 09:04 08/08/20 09:27 Ondansetron Odt 4 Mg Tab.Rapdis TRANSLINGU 4 mg Q6H PRN Administration Nausea Saliva Substitute 1 spray 08/12/20 15:06 Dry Mouth [place] 30 Ml [place] MUCOUS MEM Q2H PRN Dry Mouth Tamsulosin HCl 0.4 mg 07/25/20 21:00 08/12/20 21:26 Tamsulosin Hcl 0.4 Mg Capsule PO Not Given BEDTIME [facility] Trazodone HCl 50 mg 07/23/20 21:13 08/11/20 00:21 Trazodone Hcl 50 Mg Tablet PO 50 mg BEDTIME PRN Administration Insomnia Vitamin D 50 mcg 07/23/20 21:00 08/12/20 21:22 Cholecalciferol (Vitamin D3) 25 Mcg Tablet PO 50 mcg BEDTIME [facility] Administration Home Medications Medication Instructions Recorded Confirmed Last Taken Type aspirin 81 mg PO DAILY 07/22/20 07/22/20 Unknown History atorvastatin 80 mg PO BEDTIME 07/22/20 07/22/20 Unknown History cholecalciferol (vitamin D3) 2,000 unit BEDTIME 07/22/20 07/22/20 Unknown History clopidogrel 75 mg PO DAILY 07/22/20 07/22/20 Unknown History clozapine [Clozaril] 200 mg PO DAILY 07/22/20 07/22/20 Unknown History clozapine [Clozaril] 400 mg PO BEDTIME 07/22/20 07/22/20 Unknown History docusate sodium 100 mg PO BEDTIME 07/22/20 07/22/20 Unknown History finasteride 5 mg PO DAILY 07/22/20 07/22/20 Unknown History furosemide [Lasix] 40 mg PO BID 07/22/20 07/22/20 Unknown History lisinopril 2.5 mg PO DAILY 07/22/20 07/22/20 Unknown History magnesium oxide 800 mg PO DAILY 07/22/20 07/22/20 Unknown History metformin 1,000 mg PO BID 07/22/20 07/22/20 Unknown History metoprolol succinate 75 mg PO DAILY 07/22/20 07/22/20 Unknown History pantoprazole [Protonix] 40 mg PO DAILY 07/22/20 07/22/20 Unknown History tamsulosin 0.4 mg PO DAILY 07/22/20 07/22/20 Unknown History Physical Exam Vital Signs and Narrative: Vital Signs: Last Vital Signs Temp 97.4 F 08/13/20 06:00 Pulse 102 H 08/13/20 06:00 Resp 18 08/13/20 06:00 BP 118/76 08/13/20 06:00 Pulse Ox 95 08/13/20 06:00 Body Mass Index 40.6 General: no acute distress HEENT: atraumatic Neck: normal to visual inspection CVS: S1, S2, RRR Resp: CTA bilateral Chest: non tender GI: soft, non tender, non distended : no CVA tenderness Skin: rle erythema Extremities: 2+ bilateral le edema Neuro: Oriented X3, grossly intact Psych: cooperative Results Labs CBC and Chem 7: 08/02/20 08:09 08/09/20 09:02 Assessment and Plan (1) Peripheral vascular disease: Status: Acute 65M consult requested for SCOT SCOT possible overdiuresis, lasix and lisinopril has been held, follow up repeat. if not improved, would get nephrology eval lower extremity edema likely due to venous insufficiency elevated lower extremities, wraps HTN toprol pvd dapl, statin
[2020-08-13] MEDS: Atorvastatin Calcium 80 MG TABLET PO (22:20)
[2020-08-13] MEDS: Cholecalciferol (Vitamin D3) 25 MCG TABLET 50 MCG PO (22:20)
[2020-08-13] MEDS: Tamsulosin HCL 0.4 MG CAPSULE PO (22:20)
--- NOTE | 2020-08-13 23:44 | PC.NURSE ---
Hospital pharmacy call this technical writer and editor to check on status of labs to be drawn. This technical writer and editor explained that patient was refusing blood draws as well as vital signs.
[2020-08-14 07:00] VITALS: BMI 42.0
[2020-08-14 11:02] LABS: MANUAL DIFF FLAG NO
[2020-08-14 11:08] LABS: Basophils Percent Auto 0.5 % (0-2); Eosinophils Absolute Auto 0.1 X10*3/uL (0.0-0.4); Eosinophils Percent Auto 1.2 % (0-4); Hematocrit 36.2 % (42-52); Hemoglobin 11.7 g/dl (14.0-18.0); Imm Gran Abs Auto 0.03 X10*3/uL (0.00-0.03); Imm Gran Pct Auto 0.3 % (0.0-0.4); Lymphocytes Absolute Auto 2.2 X10*3/uL (1.2-4.9); Lymphocytes Percent Auto 25.1 % (20-40); Mean Corpuscular HGB Conc 32.3 g/dl (31.0-36.0); Mean Corpuscular Hemoglobin 25.7 pg (27.0-33.0); Mean Corpuscular Volume 79.4 fL (80-98); Mean Platelet Volume 10.4 fL (9.4-12.4); Monocytes Percent Auto 11.4 % (2-11); Neutrophils Absolute Auto 5.4 X10*3/uL (2.0-8.3); Neutrophils Percent Auto 61.5 % (45-73); Platelet Count 290 X10*3/uL (160-400); Red Blood Count 4.56 X10*6/uL (4.60-5.80); Red Cell Distribution Width 16.3 % (11.0-16.0); White Blood Count 8.7 X10*3/uL (4.8-10.8)
[2020-08-14 11:35] LABS: Alanine Aminotransferase 30 U/L (0-40); Albumin Level 3.9 g/dL (3.5-5.0); Alkaline Phosphatase 70 U/L (39-117); Anion Gap 16 (12-20); Aspartate Amino Transferase 25 U/L (5-37); Bilirubin Total 1.1 mg/dL (0.0-1.0); Blood Urea Nitrogen 39 mg/dL (9-16); Calcium 9.5 mg/dL (8.4-10.2); Carbon Dioxide 28 mmol/L (22-29); Chloride 94 mmol/L (96-108); Creatinine Clr Calc Pharmacy 71.7; Estimated Glomerular Filt Rate 36; Glucose Random 130 mg/dL (60-115); Sodium 134 mmol/L (135-145); Total Protein 6.5 g/dL (6.5-8.0)
--- NOTE | 2020-08-14 12:16 | HO.PM.IMPN ---
Subjective Subjective Date of Service: 08/14/20 Interval History: no new complaints Cardiovascular Cardiovascular: Reports no additional cardiovascular complaints Gastrointestinal Gastrointestinal: Reports no additional gastrointestinal complaints Physical Exam Vital Signs: Vital Signs: Last Vital Signs Temp 97.4 F 08/13/20 06:00 Pulse 102 H 08/13/20 06:00 Resp 18 08/13/20 06:00 BP 118/76 08/13/20 06:00 Pulse Ox 95 08/13/20 06:00 Body Mass Index 40.6 General: AO X 3, no acute distress Resp: CTA bilateral CVS: S1,S2,RRR, 2+ edema GI: soft, non tender, non distended Neuro: motor grossly intact Psych: appropriate affect Objective Data Current Medications Generic Name Dose Route Start Last Admin Trade Name Freq PRN Reason Stop Dose Admin Acetaminophen 650 mg 07/23/20 21:13 08/11/20 12:28 Acetaminophen 325 Mg Tablet PO 650 mg Q6H PRN Administration Headache/Pain Mild Scale (1-3) Al Hydroxide/Mg Hydroxide 30 ml 07/23/20 21:13 Magnesium Hydrox/Alum Hydrox 30 Ml Oral.Susp PO Q6H PRN Heartburn/Nausea Aspirin 81 mg 07/25/20 09:00 08/14/20 09:25 Aspirin Enteric Coated 81 Mg Tablet.Dr PO Not Given DAILY [facility] Atorvastatin Calcium 80 mg 07/23/20 21:00 08/13/20 22:20 Atorvastatin Calcium 80 Mg Tablet PO 80 mg BEDTIME [facility] Administration Clopidogrel Bisulfate 75 mg 07/23/20 17:00 08/14/20 09:26 Clopidogrel Bisulfate 75 Mg Tablet PO Not Given DAILY [facility] Clozapine 100 mg 08/12/20 09:00 08/13/20 10:37 Clozapine 100 Mg Tablet PO Not Given DAILY [facility] Enoxaparin Sodium 40 mg 07/29/20 15:15 08/13/20 18:08 Enoxaparin Sodium 40 Mg/0.4 Ml Syringe SUBCUT Not Given Q24H [facility] Finasteride 5 mg 07/23/20 17:00 08/14/20 09:26 Finasteride 5 Mg Tablet PO Not Given DAILY [facility] Hydroxyzine HCl 25 mg 07/23/20 21:13 08/11/20 00:21 Hydroxyzine Hcl 25 Mg Tablet PO 25 mg BEDTIME PRN Administration Anxiety Loperamide HCl 2 mg 07/24/20 15:43 07/24/20 15:54 Loperamide Hcl 2 Mg Capsule PO 2 mg Q4H PRN Administration Diarrhea Magnesium Hydroxide 30 ml 07/23/20 21:13 Milk Of Magnesia 30 Ml Oral.Susp PO DAILY PRN Constipation Metformin HCl 500 mg 08/14/20 17:00 Metformin Hcl 500 Mg Tablet PO BIDWM [facility] Metoprolol Succinate 75 mg 07/23/20 17:00 08/14/20 09:28 Metoprolol Succinate Er 25 Mg Tab.Er.24h PO Not Given DAILY [facility] Protocol Multi-Ingred Cream/Lotion/Oil/Oint 1 appl 07/24/20 21:00 08/14/20 09:27 Mineral Oil/Petrolatum,White 106 Gm Tube TOPICAL Not Given BID [facility] Patient Own 1 each 08/14/20 10:27 08/14/20 12:06 Medication (Thera PO 1 each Breath Dry Mouth Q4H PRN Administration Lozenge) Dry Mouth Patient Own 1 each 08/14/20 10:30 Medication (Biotene PO 15 Ml) BID [facility] Nystatin 1 appl 07/26/20 19:25 08/14/20 09:27 Nystatin Cream 15 Gm Tube TOPICAL Not Given DAILY [facility] Protocol Omeprazole 20 mg 07/24/20 06:30 08/14/20 09:25 Omeprazole 20 Mg Capsule.Dr PO Not Given DAILY@0630 [facility] Ondansetron HCl 4 mg 08/08/20 09:04 08/08/20 09:27 Ondansetron Odt 4 Mg Tab.Rapdis TRANSLINGU 4 mg Q6H PRN Administration Nausea Saliva Substitute 1 spray 08/12/20 15:06 Dry Mouth [place] 30 Ml [place] MUCOUS MEM Q2H PRN Dry Mouth Tamsulosin HCl 0.4 mg 07/25/20 21:00 08/13/20 22:20 Tamsulosin Hcl 0.4 Mg Capsule PO 0.4 mg BEDTIME [facility] Administration Trazodone HCl 50 mg 07/23/20 21:13 08/11/20 00:21 Trazodone Hcl 50 Mg Tablet PO 50 mg BEDTIME PRN Administration Insomnia Vitamin D 50 mcg 07/23/20 21:00 08/13/20 22:20 Cholecalciferol (Vitamin D3) 25 Mcg Tablet PO 50 mcg BEDTIME [facility] Administration Labs CBC & Chem 7: 08/14/20 10:59 08/14/20 10:59 Assessment and Plan (1) SCOT (acute kidney injury): Status: Acute Assessment and Plan: 65M consult requested for SCOT SCOT possible overdiuresis, lasix and lisinopril has been held, repeat 1., will check urine studies, repeat tomorrow, if still uptrending consult nephro lower extremity edema likely due to venous insufficiency elevated lower extremities, wraps HTN toprol pvd dapl, statin
--- NOTE | 2020-08-14 13:43 | P.PNPSI_ITS ---
Subjective Subjective Date of Service: 08/14/20 Reason For Visit: psychosis Subjective Notes: Conditional Voluntary Healthcare Proxy: No Guardianship: Yes ([facility] amendment pending to Manuelito.) Medical Problems Affecting Mental Status: No Interim History: Accepted labs with security present today. Refused clozapine as of this writing. WBC 8.7 Na 134, RBC, Hgb, Hct trending down. BUN from 29-39 C reat 1.63-1.88 in five days. Metformin decreased to 500 mg bid per pharmacy recommendation for GFR< 45 (currently at 43). Lisinopril, Lasix on hold. SCOT. Appetite/intake poor-given Biotene toothpaste, lozengers, mouthwash to address dry mouth to hopefully help to increase intake. Pt calm alert, denies sx, admits to auditory perceptual alterations. Hospitalist consultations much appreciated. Medication Compliance: No Side effects from medications: Yes (dry mouth) Attending Groups: Intermittent Review of Systems Constitutional: Reports anorexia Cardiovascular: Reports pedal edema and Reports leg edema Psychiatric: Reports auditory hallucinations, Reports paranoia and Reports hallucinations Mental Status Exam Mental Status Exam Patient Appearance: Appropriate Patient Orientation: Person and Place Level of Consciousness: Alert Patient Behavior: Guarded, Talkative, Suspicious and Good Eye Contact Mood Description: Constricted Affect Description: Constricted Ability to Follow Directions: Fair Speech Pattern: Clear, Spontaneous Speech, Soft-Spoken and Long Pauses Memory Description: Remote Impaired and Episodic Impaired Hallucinations: Auditory Delusions: Paranoid Ideation and Present Thought Process: Illogical, Distracted and Slowed Thinking Thought Content: positive for Era, positive for Circumstantial, positive for Poverty of Content, positive for Thought Blocking, positive for Tangential and positive for Disorganized Depressive Symptoms: Diff. Making Decisions, Changes in Appetite, Loss of Energy and Difficulty Concentrating Diagnostics Vital Signs (24Hr): Body Mass Index 40.6 Labs Results: 08/14/20 10:59 08/14/20 10:59 Labs: Laboratory Results - last 48 hr 08/14/20 08/14/20 10:59 10:59 WBC 8.7 RBC 4.56 L Hgb 11.7 L Hct 36.2 L MCV 79.4 L MCH 25.7 L MCHC 32.3 RDW 16.3 H Plt Count 290 MPV 10.4 Immature Gran % (Auto) 0.3 Neut % (Auto) 61.5 Lymph % (Auto) 25.1 [place] % (Auto) 11.4 H Eos % (Auto) 1.2 Baso % (Auto) 0.5 Lymph # (Auto) 2.2 [place] # (Auto) 1.0 Eos # (Auto) 0.1 Baso # (Auto) 0.0 Abs Immat Gran (auto) 0.03 Absolute Neuts (auto) 5.4 Absolute Nucleated RBC 0.000 Nucleated RBC % (auto) 0.0 Sodium 134 L Potassium 4.0 Chloride 94 L Carbon Dioxide 28 Anion Gap 16 BUN 39 H Creatinine 1.88 H Estim Creat Clear Calc 71.7 Estimated GFR 36 Random Glucose 130 H Calcium 9.5 Total Bilirubin 1.1 H AST 25 ALT 30 Alkaline Phosphatase 70 Total Protein 6.5 Albumin 3.9 Imaging Radiology Impressions: ITS Impressions KUB X-Ray 07/22/20 17:13 IMPRESSION: Moderate volume of stool scattered in colon. No bowel obstruction. Medications Medications Current Medications Generic Name Dose Route Start Last Admin Trade Name Freq PRN Reason Stop Dose Admin Acetaminophen 650 mg 07/23/20 21:13 08/11/20 12:28 Acetaminophen 325 Mg Tablet PO 650 mg Q6H PRN Administration Headache/Pain Mild Scale (1-3) Al Hydroxide/Mg Hydroxide 30 ml 07/23/20 21:13 Magnesium Hydrox/Alum Hydrox 30 Ml Oral.Susp PO Q6H PRN Heartburn/Nausea Aspirin 81 mg 07/25/20 09:00 08/14/20 09:25 Aspirin Enteric Coated 81 Mg Tablet.Dr PO Not Given DAILY [facility] Atorvastatin Calcium 80 mg 07/23/20 21:00 08/13/20 22:20 Atorvastatin Calcium 80 Mg Tablet PO 80 mg BEDTIME [facility] Administration Clopidogrel Bisulfate 75 mg 07/23/20 17:00 08/14/20 09:26 Clopidogrel Bisulfate 75 Mg Tablet PO Not Given DAILY [facility] Clozapine 100 mg 08/12/20 09:00 08/13/20 10:37 Clozapine 100 Mg Tablet PO Not Given DAILY [facility] Enoxaparin Sodium 40 mg 07/29/20 15:15 08/13/20 18:08 Enoxaparin Sodium 40 Mg/0.4 Ml Syringe SUBCUT Not Given Q24H [facility] Finasteride 5 mg 07/23/20 17:00 08/14/20 09:26 Finasteride 5 Mg Tablet PO Not Given DAILY [facility] Hydroxyzine HCl 25 mg 07/23/20 21:13 08/11/20 00:21 Hydroxyzine Hcl 25 Mg Tablet PO 25 mg BEDTIME PRN Administration Anxiety Loperamide HCl 2 mg 07/24/20 15:43 07/24/20 15:54 Loperamide Hcl 2 Mg Capsule PO 2 mg Q4H PRN Administration Diarrhea Magnesium Hydroxide 30 ml 07/23/20 21:13 Milk Of Magnesia 30 Ml Oral.Susp PO DAILY PRN Constipation Metformin HCl 500 mg 08/14/20 17:00 Metformin Hcl 500 Mg Tablet PO BIDWM [facility] Metoprolol Succinate 75 mg 07/23/20 17:00 08/14/20 09:28 Metoprolol Succinate Er 25 Mg Tab.Er.24h PO Not Given DAILY [facility] Protocol Multi-Ingred Cream/Lotion/Oil/Oint 1 appl 07/24/20 21:00 08/14/20 09:27 Mineral Oil/Petrolatum,White 106 Gm Tube TOPICAL Not Given BID [facility] Patient Own 1 each 08/14/20 10:27 08/14/20 12:06 Medication (Thera PO 1 each Breath Dry Mouth Q4H PRN Administration Lozenge) Dry Mouth Patient Own 1 each 08/14/20 10:30 Medication (Biotene PO 15 Ml) BID [facility] Nystatin 1 appl 07/26/20 19:25 08/14/20 09:27 Nystatin Cream 15 Gm Tube TOPICAL Not Given DAILY [facility] Protocol Omeprazole 20 mg 07/24/20 06:30 08/14/20 09:25 Omeprazole 20 Mg Capsule.Dr PO Not Given DAILY@0630 [facility] Ondansetron HCl 4 mg 08/08/20 09:04 08/08/20 09:27 Ondansetron Odt 4 Mg Tab.Rapdis TRANSLINGU 4 mg Q6H PRN Administration Nausea Saliva Substitute 1 spray 08/12/20 15:06 Dry Mouth [place] 30 Ml [place] MUCOUS MEM Q2H PRN Dry Mouth Tamsulosin HCl 0.4 mg 07/25/20 21:00 08/13/20 22:20 Tamsulosin Hcl 0.4 Mg Capsule PO 0.4 mg BEDTIME [facility] Administration Trazodone HCl 50 mg 07/23/20 21:13 08/11/20 00:21 Trazodone Hcl 50 Mg Tablet PO 50 mg BEDTIME PRN Administration Insomnia Vitamin D 50 mcg 07/23/20 21:00 08/13/20 22:20 Cholecalciferol (Vitamin D3) 25 Mcg Tablet PO 50 mcg BEDTIME [facility] Administration Allergies Allergies Allergy/AdvReac Type Severity Reaction Status Date / Time No Known Allergies Allergy Verified 07/21/20 16:39 Assessment & Plan Assessment & Plan (1) SCOT (acute kidney injury): Status: Acute Code(s): N17.9 - Acute kidney failure, unspecified Assessment and Plan: 65M consult requested for SCOT SCOT possible overdiuresis, lasix and lisinopril has been held, repeat , will check urine studies, repeat tomorrow, if still uptrending consult nephro lower extremity edema likely due to venous insufficiency elevated lower extremities, wraps HTN toprol pvd dapl, statin (2) Schizophrenia, paranoid, subchronic with acute exacerbation: Status: Acute Code(s): F20.0 - Paranoid schizophrenia Assessment and Plan: Pt refusing Clozaril today. [facility] pending Jesse's guardianship ammendment for [facility] options for treatment. Accepted labs today with security present. Pt continues on one to one with private room. Intermittent milieu activity attendance. Active auditory perceptual alterations reported by pt. Refusing of most food and fluid, SCOT being monitored by hospitalist. Metformin decreased to 500 mg bid due to GFR 43, BUN to 39 from 29 in 5 days, Creatinine 1.63 to 1.88 in 5 days. Greater than 50% of the session was spent on counseling and/or coordination of care Patient educated on: therapeutic strategies and medical condition Informed Consent: does not understand Reason for contiued inpatient stay Substantial Risk for: harm to self, harm to others, inability to function, rapid decompensation and med/psych decompensation
[2020-08-14 16:00] VITALS: RESP 16
[2020-08-15] MEDS: cloZAPine 25 MG TABLET PO (08:39)
[2020-08-15] MEDS: Omeprazole 20 MG CAPSULE.DR PO (10:24)
[2020-08-15] MEDS: Aspirin Enteric Coated 81 MG TABLET.DR PO (10:24)
[2020-08-15] MEDS: metFORMIN HCl 500 MG TABLET PO (10:24)
[2020-08-15] MEDS: Clopidogrel Bisulfate 75 MG TABLET PO (10:24)
[2020-08-15 10:25] VITALS: PULSE 68
[2020-08-15] MEDS: Metoprolol Succinate ER 25 MG TAB.ER.24H 75 MG PO (10:25)
[2020-08-15] MEDS: Finasteride 5 MG TABLET PO (10:25)
[2020-08-15] MEDS: Mineral Oil/Petrolatum,White 106 GM Tube 1 APPL TOPICAL (10:54)
--- NOTE | 2020-08-15 11:38 | HO.PM.IMPN ---
Subjective Subjective Date of Service: 08/15/20 Interval History: no copmaitns Cardiovascular Cardiovascular: Reports no additional cardiovascular complaints Gastrointestinal Gastrointestinal: Reports no additional gastrointestinal complaints Physical Exam Vital Signs: Vital Signs: Last Vital Signs Temp 97.4 F 08/13/20 06:00 Pulse 68 08/15/20 10:25 Resp 16 08/14/20 16:00 BP 118/76 08/13/20 06:00 Pulse Ox 95 08/13/20 06:00 Body Mass Index 42.0 General: AO X 3, no acute distress Resp: CTA bilateral CVS: S1,S2,RRR, 2+ edema GI: soft, non tender, non distended Neuro: motor grossly intact Psych: appropriate affect Objective Data Current Medications Generic Name Dose Route Start Last Admin Trade Name Freq PRN Reason Stop Dose Admin Acetaminophen 650 mg 07/23/20 21:13 08/11/20 12:28 Acetaminophen 325 Mg Tablet PO 650 mg Q6H PRN Administration Headache/Pain Mild Scale (1-3) Al Hydroxide/Mg Hydroxide 30 ml 07/23/20 21:13 Magnesium Hydrox/Alum Hydrox 30 Ml Oral.Susp PO Q6H PRN Heartburn/Nausea Aspirin 81 mg 07/25/20 09:00 08/15/20 10:24 Aspirin Enteric Coated 81 Mg Tablet.Dr PO 81 mg DAILY [facility] Administration Atorvastatin Calcium 80 mg 07/23/20 21:00 08/14/20 20:37 Atorvastatin Calcium 80 Mg Tablet PO Not Given BEDTIME [facility] Clopidogrel Bisulfate 75 mg 07/23/20 17:00 08/15/20 10:24 Clopidogrel Bisulfate 75 Mg Tablet PO 75 mg DAILY [facility] Administration Clozapine 25 mg 08/15/20 09:00 08/15/20 08:39 Clozapine 25 Mg Tablet PO 25 mg DAILY [facility] Administration Enoxaparin Sodium 40 mg 07/29/20 15:15 08/14/20 15:00 Enoxaparin Sodium 40 Mg/0.4 Ml Syringe SUBCUT Not Given Q24H [facility] Finasteride 5 mg 07/23/20 17:00 08/15/20 10:25 Finasteride 5 Mg Tablet PO 5 mg DAILY [facility] Administration Hydroxyzine HCl 25 mg 07/23/20 21:13 08/11/20 00:21 Hydroxyzine Hcl 25 Mg Tablet PO 25 mg BEDTIME PRN Administration Anxiety Loperamide HCl 2 mg 07/24/20 15:43 07/24/20 15:54 Loperamide Hcl 2 Mg Capsule PO 2 mg Q4H PRN Administration Diarrhea Magnesium Hydroxide 30 ml 07/23/20 21:13 Milk Of Magnesia 30 Ml Oral.Susp PO DAILY PRN Constipation Metformin HCl 500 mg 08/14/20 17:00 08/15/20 10:24 Metformin Hcl 500 Mg Tablet PO 500 mg BIDWM [facility] Administration Metoprolol Succinate 75 mg 07/23/20 17:00 08/15/20 10:25 Metoprolol Succinate Er 25 Mg Tab.Er.24h PO 75 mg DAILY [facility] Administration Protocol Multi-Ingred Cream/Lotion/Oil/Oint 1 appl 07/24/20 21:00 08/15/20 10:54 Mineral Oil/Petrolatum,White 106 Gm Tube TOPICAL 1 appl BID [facility] Administration Patient Own 1 each 08/14/20 10:27 08/14/20 12:06 Medication (Thera PO 1 each Breath Dry Mouth Q4H PRN Administration Lozenge) Dry Mouth Patient Own 1 each 08/14/20 10:30 08/15/20 10:26 Medication (Biotene PO 1 each 15 Ml) BID [facility] Administration Nystatin 1 appl 07/26/20 19:25 08/15/20 10:58 Nystatin Cream 15 Gm Tube TOPICAL Not Given DAILY [facility] Protocol Omeprazole 20 mg 07/24/20 06:30 08/15/20 10:24 Omeprazole 20 Mg Capsule.Dr PO 20 mg DAILY@0630 [facility] Administration Ondansetron HCl 4 mg 08/08/20 09:04 08/08/20 09:27 Ondansetron Odt 4 Mg Tab.Rapdis TRANSLINGU 4 mg Q6H PRN Administration Nausea Saliva Substitute 1 spray 08/12/20 15:06 Dry Mouth [place] 30 Ml [place] MUCOUS MEM Q2H PRN Dry Mouth Tamsulosin HCl 0.4 mg 07/25/20 21:00 08/14/20 20:37 Tamsulosin Hcl 0.4 Mg Capsule PO Not Given BEDTIME [facility] Trazodone HCl 50 mg 07/23/20 21:13 08/11/20 00:21 Trazodone Hcl 50 Mg Tablet PO 50 mg BEDTIME PRN Administration Insomnia Vitamin D 50 mcg 07/23/20 21:00 08/14/20 20:37 Cholecalciferol (Vitamin D3) 25 Mcg Tablet PO Not Given BEDTIME [facility] Labs CBC & Chem 7: 08/14/20 10:59 08/14/20 10:59 Assessment and Plan (1) SCTO (acute kidney injury): Status: Acute Assessment and Plan: 65M consult requested for SCOT SCOT possible overdiuresis, lasix and lisinopril has been held, 08/14 was 1.88, pending urine studies, repeat, if still uptrending consult nephro lower extremity edema likely due to venous insufficiency elevated lower extremities, wraps HTN toprol pvd dapl, statin
--- NOTE | 2020-08-15 15:08 | P.PNPSI_ITS ---
Subjective Subjective Date of Service: 08/15/20 Reason For Visit: psychosis Subjective Notes: Conditional Voluntary Healthcare Proxy: No Guardianship: Yes ([facility] Manuelito amendment pending) Medical Problems Affecting Mental Status: Yes Interim History: Care refusal, paranoia, guarded presentation continues. Refused a.m. vital signs, accepted some medications with encouragement. Refused Lovenox, allowed nereyda wraps to be placed, but removed them after ~30 minutes. Appears apprehensive and suspecting when you talk with him, brief answers. Clozaril decreased to 25 mg daily as pt has been inconsistent with dosage compliance. Medication Compliance: Intermittent Side effects from medications: No Attending Groups: Intermittent Review of Systems Constitutional: Reports anorexia, Reports difficulty sleeping, Reports fatigue, Reports lethargy, Reports malaise and Reports poor appetite Cardiovascular: Reports leg edema Genitourinary: Reports other (SCOT sx) Reports behavioral changes Psychiatric: Reports abnormal sleep pattern, Reports anxiety, Reports behavioral changes, Reports change in appetite, Reports difficulty concentrating, Reports auditory hallucinations, Reports hopelessness, Reports irritability, Reports anhedonia, Reports mood swings, Reports paranoia and Reports hallucinations Endocrine: Reports fatigue Mental Status Exam Mental Status Exam Patient Appearance: Disheveled Patient Orientation: Person and Place Level of Consciousness: Awake and Alert Patient Behavior: Guarded, Suspicious, Anxious, Fearful, Resistive to Care, Avoidant, Fatigued, Distractible, Isolative and Good Eye Contact Mood Description: Constricted Affect Description: Constricted Patient Cognition Impaired: Yes Ability to Follow Directions: Fair Speech Pattern: Clear, Spontaneous Speech and Soft-Spoken Memory Description: Remote Impaired and Episodic Impaired Hallucinations: Auditory Delusions: Paranoid Ideation and Present Thought Process: Illogical and Distracted Thought Content: positive for Circumstantial and positive for Thought Blocking Depressive Symptoms: Increased Anxiety, Diff. Making Decisions, Difficulty Sleeping and Changes in Appetite Judgement: Poor Diagnostics Vital Signs (24Hr): Vital Signs - 24 hr 08/14/20 16:00 08/15/20 10:25 Pulse Rate 68 Respiratory Rate 16 Body Mass Index 42.0 Labs Results: 08/14/20 10:59 08/14/20 10:59 Labs: Laboratory Results - last 48 hr 08/14/20 08/14/20 10:59 10:59 WBC 8.7 RBC 4.56 L Hgb 11.7 L Hct 36.2 L MCV 79.4 L MCH 25.7 L MCHC 32.3 RDW 16.3 H Plt Count 290 MPV 10.4 Immature Gran % (Auto) 0.3 Neut % (Auto) 61.5 Lymph % (Auto) 25.1 [place] % (Auto) 11.4 H Eos % (Auto) 1.2 Baso % (Auto) 0.5 Lymph # (Auto) 2.2 [place] # (Auto) 1.0 Eos # (Auto) 0.1 Baso # (Auto) 0.0 Abs Immat Gran (auto) 0.03 Absolute Neuts (auto) 5.4 Absolute Nucleated RBC 0.000 Nucleated RBC % (auto) 0.0 Sodium 134 L Potassium 4.0 Chloride 94 L Carbon Dioxide 28 Anion Gap 16 BUN 39 H Creatinine 1.88 H Estim Creat Clear Calc 71.7 Estimated GFR 36 Random Glucose 130 H Calcium 9.5 Total Bilirubin 1.1 H AST 25 ALT 30 Alkaline Phosphatase 70 Total Protein 6.5 Albumin 3.9 Imaging Radiology Impressions: ITS Impressions KUB X-Ray 07/22/20 17:13 IMPRESSION: Moderate volume of stool scattered in colon. No bowel obstruction. Medications Medications Current Medications Generic Name Dose Route Start Last Admin Trade Name Freq PRN Reason Stop Dose Admin Acetaminophen 650 mg 07/23/20 21:13 08/11/20 12:28 Acetaminophen 325 Mg Tablet PO 650 mg Q6H PRN Administration Headache/Pain Mild Scale (1-3) Al Hydroxide/Mg Hydroxide 30 ml 07/23/20 21:13 Magnesium Hydrox/Alum Hydrox 30 Ml Oral.Susp PO Q6H PRN Heartburn/Nausea Aspirin 81 mg 07/25/20 09:00 08/15/20 10:24 Aspirin Enteric Coated 81 Mg Tablet.Dr PO 81 mg DAILY [facility] Administration Atorvastatin Calcium 80 mg 07/23/20 21:00 08/14/20 20:37 Atorvastatin Calcium 80 Mg Tablet PO Not Given BEDTIME [facility] Clopidogrel Bisulfate 75 mg 07/23/20 17:00 08/15/20 10:24 Clopidogrel Bisulfate 75 Mg Tablet PO 75 mg DAILY [facility] Administration Clozapine 25 mg 08/15/20 09:00 08/15/20 08:39 Clozapine 25 Mg Tablet PO 25 mg DAILY [facility] Administration Enoxaparin Sodium 40 mg 07/29/20 15:15 08/15/20 15:07 Enoxaparin Sodium 40 Mg/0.4 Ml Syringe SUBCUT Not Given Q24H [facility] Finasteride 5 mg 07/23/20 17:00 08/15/20 10:25 Finasteride 5 Mg Tablet PO 5 mg DAILY [facility] Administration Hydroxyzine HCl 25 mg 07/23/20 21:13 08/11/20 00:21 Hydroxyzine Hcl 25 Mg Tablet PO 25 mg BEDTIME PRN Administration Anxiety Loperamide HCl 2 mg 07/24/20 15:43 07/24/20 15:54 Loperamide Hcl 2 Mg Capsule PO 2 mg Q4H PRN Administration Diarrhea Magnesium Hydroxide 30 ml 07/23/20 21:13 Milk Of Magnesia 30 Ml Oral.Susp PO DAILY PRN Constipation Metformin HCl 500 mg 08/14/20 17:00 08/15/20 10:24 Metformin Hcl 500 Mg Tablet PO 500 mg BIDWM [facility] Administration Metoprolol Succinate 75 mg 07/23/20 17:00 08/15/20 10:25 Metoprolol Succinate Er 25 Mg Tab.Er.24h PO 75 mg DAILY [facility] Administration Protocol Multi-Ingred Cream/Lotion/Oil/Oint 1 appl 07/24/20 21:00 08/15/20 10:54 Mineral Oil/Petrolatum,White 106 Gm Tube TOPICAL 1 appl BID [facility] Administration Patient Own 1 each 08/14/20 10:27 08/14/20 12:06 Medication (Thera PO 1 each Breath Dry Mouth Q4H PRN Administration Lozenge) Dry Mouth Patient Own 1 each 08/14/20 10:30 08/15/20 10:26 Medication (Biotene PO 1 each 15 Ml) BID [facility] Administration Nystatin 1 appl 07/26/20 19:25 08/15/20 10:58 Nystatin Cream 15 Gm Tube TOPICAL Not Given DAILY [facility] Protocol Omeprazole 20 mg 07/24/20 06:30 08/15/20 10:24 Omeprazole 20 Mg Capsule.Dr PO 20 mg DAILY@0630 [facility] Administration Ondansetron HCl 4 mg 08/08/20 09:04 08/08/20 09:27 Ondansetron Odt 4 Mg Tab.Rapdis TRANSLINGU 4 mg Q6H PRN Administration Nausea Saliva Substitute 1 spray 08/12/20 15:06 Dry Mouth [place] 30 Ml [place] MUCOUS MEM Q2H PRN Dry Mouth Tamsulosin HCl 0.4 mg 07/25/20 21:00 06/10/21 20:37 Tamsulosin Hcl 0.4 Mg Capsule PO Not Given BEDTIME [facility] Trazodone HCl 50 mg 07/23/20 21:13 08/11/20 00:21 Trazodone Hcl 50 Mg Tablet PO 50 mg BEDTIME PRN Administration Insomnia Vitamin D 50 mcg 07/23/20 21:00 08/14/20 20:37 Cholecalciferol (Vitamin D3) 25 Mcg Tablet PO Not Given BEDTIME [facility] Allergies Allergies Allergy/AdvReac Type Severity Reaction Status Date / Time No Known Allergies Allergy Verified 07/21/20 16:39 Assessment & Plan Assessment & Plan (1) SCOT (acute kidney injury): Status: Acute Code(s): N17.9 - Acute kidney failure, unspecified Assessment and Plan: 65M consult requested for SCOT SCOT possible overdiuresis, lasix and lisinopril has been held, 08/14 was 1.88, pending urine studies, repeat, if still uptrending consult nephro lower extremity edema likely due to venous insufficiency elevated lower extremities, wraps HTN toprol pvd dapl, statin (2) Schizophrenia, paranoid, subchronic with acute exacerbation: Status: Acute Code(s): F20.0 - Paranoid schizophrenia Assessment and Plan: -Inconsistent compliance with Clozapine with return to 25 mg daily and inability to titrate. -Paranoia, guarded presentation -Urine studies pending -CMP 08/16/20 -[facility] Jesse's ammendment pending. Greater than 50% of the session was spent on counseling and/or coordination of care Reason for contiued inpatient stay Substantial Risk for: harm to self, inability to function, rapid decompensation and med/psych decompensation
--- NOTE | 2020-08-16 09:18 | P.PNPSI_ITS ---
Subjective Subjective Date of Service: 08/16/20 Reason For Visit: psychosis Interim History: Pt sitting quietly in chair on approach with 1:1 sitter. Pt got up, did a push up; when fiction writer inquired he stopped and sat back down in chair. At first refused he refused lab work, but later on allowed it. Took Clozaril today. Continues to have AH. nursing staff asked about back up IM if pt refuses Clozaril, given civil commitment, however [place]/civil commitment not present and fiction writer was not sure what meds are listed. pt continues to have elevated Creatinine; Dr. Arana called Nephrology to weigh in. Medication Compliance: Intermittent Mental Status Exam Mental Status Exam Narrative: Patient Appearance: unkempt Patient Orientation: Person and Place Level of Consciousness: Awake and Alert Patient Behavior: Guarded, Suspicious Mood Description: Constricted Affect Description: Constricted Patient Cognition Impaired: Yes Ability to Follow Directions: Fair Speech Pattern: Clear, Spontaneous Speech and Soft-Spoken Memory Description: Remote Impaired and Episodic Impaired Hallucinations: Auditory Delusions: Paranoid Ideation and Present Thought Process: Illogical and Distracted Thought Content: limited Depressive Symptoms: Increased Anxiety, Diff. Making Decisions, Difficulty Sleeping and Changes in Appetite Judgement: Poor Diagnostics Vital Signs (24Hr): Vital Signs - 24 hr 08/15/20 10:25 Pulse Rate 68 Body Mass Index 42.0 Labs Results: 08/14/20 10:59 08/16/20 13:50 Labs: Laboratory Results - last 48 hr 08/14/20 08/14/20 10:59 10:59 WBC 8.7 RBC 4.56 L Hgb 11.7 L Hct 36.2 L MCV 79.4 L MCH 25.7 L MCHC 32.3 RDW 16.3 H Plt Count 290 MPV 10.4 Immature Gran % (Auto) 0.3 Neut % (Auto) 61.5 Lymph % (Auto) 25.1 [place] % (Auto) 11.4 H Eos % (Auto) 1.2 Baso % (Auto) 0.5 Lymph # (Auto) 2.2 [place] # (Auto) 1.0 Eos # (Auto) 0.1 Baso # (Auto) 0.0 Abs Immat Gran (auto) 0.03 Absolute Neuts (auto) 5.4 Absolute Nucleated RBC 0.000 Nucleated RBC % (auto) 0.0 Sodium 134 L Potassium 4.0 Chloride 94 L Carbon Dioxide 28 Anion Gap 16 BUN 39 H Creatinine 1.88 H Estim Creat Clear Calc 71.7 Estimated GFR 36 Random Glucose 130 H Calcium 9.5 Total Bilirubin 1.1 H AST 25 ALT 30 Alkaline Phosphatase 70 Total Protein 6.5 Albumin 3.9 Imaging Radiology Impressions: ITS Impressions KUB X-Ray 07/22/20 17:13 IMPRESSION: Moderate volume of stool scattered in colon. No bowel obstruction. Medications Medications Current Medications Generic Name Dose Route Start Last Admin Trade Name Freq PRN Reason Stop Dose Admin Acetaminophen 650 mg 07/23/20 21:13 08/11/20 12:28 Acetaminophen 325 Mg Tablet PO 650 mg Q6H PRN Administration Headache/Pain Mild Scale (1-3) Al Hydroxide/Mg Hydroxide 30 ml 07/23/20 21:13 Magnesium Hydrox/Alum Hydrox 30 Ml Oral.Susp PO Q6H PRN Heartburn/Nausea Aspirin 81 mg 07/25/20 09:00 08/15/20 10:24 Aspirin Enteric Coated 81 Mg Tablet.Dr PO 81 mg DAILY [facility] Administration Atorvastatin Calcium 80 mg 07/23/20 21:00 08/15/20 22:49 Atorvastatin Calcium 80 Mg Tablet PO Not Given BEDTIME [facility] Clopidogrel Bisulfate 75 mg 07/23/20 17:00 08/15/20 10:24 Clopidogrel Bisulfate 75 Mg Tablet PO 75 mg DAILY [facility] Administration Clozapine 25 mg 08/15/20 09:00 08/15/20 08:39 Clozapine 25 Mg Tablet PO 25 mg DAILY [facility] Administration Enoxaparin Sodium 40 mg 07/29/20 15:15 08/15/20 15:07 Enoxaparin Sodium 40 Mg/0.4 Ml Syringe SUBCUT Not Given Q24H [facility] Finasteride 5 mg 07/23/20 17:00 08/15/20 10:25 Finasteride 5 Mg Tablet PO 5 mg DAILY [facility] Administration Hydroxyzine HCl 25 mg 07/23/20 21:13 08/11/20 00:21 Hydroxyzine Hcl 25 Mg Tablet PO 25 mg BEDTIME PRN Administration Anxiety Loperamide HCl 2 mg 07/24/20 15:43 07/24/20 15:54 Loperamide Hcl 2 Mg Capsule PO 2 mg Q4H PRN Administration Diarrhea Magnesium Hydroxide 30 ml 07/23/20 21:13 Milk Of Magnesia 30 Ml Oral.Susp PO DAILY PRN Constipation Metformin HCl 500 mg 08/14/20 17:00 08/15/20 17:37 Metformin Hcl 500 Mg Tablet PO Not Given BIDWM [facility] Metoprolol Succinate 75 mg 07/23/20 17:00 08/15/20 10:25 Metoprolol Succinate Er 25 Mg Tab.Er.24h PO 75 mg DAILY [facility] Administration Protocol Multi-Ingred Cream/Lotion/Oil/Oint 1 appl 07/24/20 21:00 08/15/20 22:48 Mineral Oil/Petrolatum,White 106 Gm Tube TOPICAL Not Given BID [facility] Patient Own 1 each 08/14/20 10:27 08/14/20 12:06 Medication (Thera PO 1 each Breath Dry Mouth Q4H PRN Administration Lozenge) Dry Mouth Patient Own 1 each 08/14/20 10:30 08/15/20 22:48 Medication (Biotene PO 1 each 15 Ml) BID [facility] Administration Nystatin 1 appl 07/26/20 19:25 08/15/20 10:58 Nystatin Cream 15 Gm Tube TOPICAL Not Given DAILY [facility] Protocol Omeprazole 20 mg 07/24/20 06:30 08/15/20 10:24 Omeprazole 20 Mg Capsule. PO 20 mg DAILY@0630 [facility] Administration Ondansetron HCl 4 mg 08/08/20 09:04 08/08/20 09:27 Ondansetron Odt 4 Mg Tab.Rapdis TRANSLINGU 4 mg Q6H PRN Administration Nausea Saliva Substitute 1 spray 08/12/20 15:06 Dry Mouth [place] 30 Ml [place] MUCOUS MEM Q2H PRN Dry Mouth Tamsulosin HCl 0.4 mg 07/25/20 21:00 08/15/20 22:49 Tamsulosin Hcl 0.4 Mg Capsule PO Not Given BEDTIME [facility] Trazodone HCl 50 mg 07/23/20 21:13 08/11/20 00:21 Trazodone Hcl 50 Mg Tablet PO 50 mg BEDTIME PRN Administration Insomnia Vitamin D 50 mcg 07/23/20 21:00 08/15/20 22:49 Cholecalciferol (Vitamin D3) 25 Mcg Tablet PO Not Given BEDTIME [facility] Allergies Allergies Allergy/AdvReac Type Severity Reaction Status Date / Time No Known Allergies Allergy Verified 07/21/20 16:39 Assessment & Plan Assessment & Plan (1) SCOT (acute kidney injury): Status: Acute Code(s): N17.9 - Acute kidney failure, unspecified Assessment and Plan: 65M consult requested for SCOT no changes to primary tx plan SCOT possible overdiuresis, lasix and lisinopril has been held, 08/14 was 1.88, pending urine studies, repeated trending down, but still elevated; medicine aware; nephro consult by dr. Freeman extremity edema likely due to venous insufficiency elevated lower extremities, wraps HTN toprol pvd dapl, statin (2) Schizophrenia, paranoid, subchronic with acute exacerbation: Status: Acute Code(s): F20.0 - Paranoid schizophrenia Assessment and Plan: -Inconsistent compliance with Clozapine with return to 25 mg daily and inability to titrate. -Paranoia, guarded presentation -Urine studies pending -CMP 08/16/20 -[facility] Jesse's ammendment pending. Greater than 50% of the session was spent on counseling and/or coordination of care Reason for contiued inpatient stay Substantial Risk for: inability to function
[2020-08-16] MEDS: cloZAPine 25 MG TABLET PO (09:49)
--- NOTE | 2020-08-16 09:59 | HO.PM.IMPN ---
Subjective Subjective Date of Service: 08/16/20 Interval History: no complaints, doesnt want labs Cardiovascular Cardiovascular: Reports no additional cardiovascular complaints Gastrointestinal Gastrointestinal: Reports no additional gastrointestinal complaints Physical Exam Vital Signs: Vital Signs: Last Vital Signs Temp 97.4 F 08/13/20 06:00 Pulse 68 08/15/20 10:25 Resp 16 08/14/20 16:00 BP 118/76 08/13/20 06:00 Pulse Ox 95 08/13/20 06:00 Body Mass Index 42.0 General: AO X 3, no acute distress Resp: CTA bilateral CVS: S1,S2,RRR, 2+ edema GI: soft, non tender, non distended Neuro: motor grossly intact Psych: appropriate affect Objective Data Current Medications Generic Name Dose Route Start Last Admin Trade Name Freq PRN Reason Stop Dose Admin Acetaminophen 650 mg 07/23/20 21:13 08/11/20 12:28 Acetaminophen 325 Mg Tablet PO 650 mg Q6H PRN Administration Headache/Pain Mild Scale (1-3) Al Hydroxide/Mg Hydroxide 30 ml 07/23/20 21:13 Magnesium Hydrox/Alum Hydrox 30 Ml Oral.Susp PO Q6H PRN Heartburn/Nausea Aspirin 81 mg 07/25/20 09:00 08/15/20 10:24 Aspirin Enteric Coated 81 Mg Tablet.Dr PO 81 mg DAILY [facility] Administration Atorvastatin Calcium 80 mg 07/23/20 21:00 08/15/20 22:49 Atorvastatin Calcium 80 Mg Tablet PO Not Given BEDTIME [facility] Clopidogrel Bisulfate 75 mg 07/23/20 17:00 08/15/20 10:24 Clopidogrel Bisulfate 75 Mg Tablet PO 75 mg DAILY [facility] Administration Clozapine 25 mg 08/15/20 09:00 08/16/20 09:49 Clozapine 25 Mg Tablet PO 25 mg DAILY [facility] Administration Enoxaparin Sodium 40 mg 07/29/20 15:15 08/15/20 15:07 Enoxaparin Sodium 40 Mg/0.4 Ml Syringe SUBCUT Not Given Q24H [facility] Finasteride 5 mg 07/23/20 17:00 08/15/20 10:25 Finasteride 5 Mg Tablet PO 5 mg DAILY [facility] Administration Hydroxyzine HCl 25 mg 07/23/20 21:13 08/11/20 00:21 Hydroxyzine Hcl 25 Mg Tablet PO 25 mg BEDTIME PRN Administration Anxiety Loperamide HCl 2 mg 07/24/20 15:43 07/24/20 15:54 Loperamide Hcl 2 Mg Capsule PO 2 mg Q4H PRN Administration Diarrhea Magnesium Hydroxide 30 ml 07/23/20 21:13 Milk Of Magnesia 30 Ml Oral.Susp PO DAILY PRN Constipation Metformin HCl 500 mg 08/14/20 17:00 08/15/20 17:37 Metformin Hcl 500 Mg Tablet PO Not Given BIDWM [facility] Metoprolol Succinate 75 mg 07/23/20 17:00 08/15/20 10:25 Metoprolol Succinate Er 25 Mg Tab.Er.24h PO 75 mg DAILY [facility] Administration Protocol Multi-Ingred Cream/Lotion/Oil/Oint 1 appl 07/24/20 21:00 08/15/20 22:48 Mineral Oil/Petrolatum,White 106 Gm Tube TOPICAL Not Given BID [facility] Patient Own 1 each 08/14/20 10:27 08/14/20 12:06 Medication (Thera PO 1 each Breath Dry Mouth Q4H PRN Administration Lozenge) Dry Mouth Patient Own 1 each 08/14/20 10:30 08/15/20 22:48 Medication (Biotene PO 1 each 15 Ml) BID [facility] Administration Nystatin 1 appl 07/26/20 19:25 08/15/20 10:58 Nystatin Cream 15 Gm Tube TOPICAL Not Given DAILY [facility] Protocol Omeprazole 20 mg 07/24/20 06:30 08/15/20 10:24 Omeprazole 20 Mg Capsule.Dr PO 20 mg DAILY@0630 [facility] Administration Ondansetron HCl 4 mg 08/08/20 09:04 08/08/20 09:27 Ondansetron Odt 4 Mg Tab.Rapdis TRANSLINGU 4 mg Q6H PRN Administration Nausea Saliva Substitute 1 spray 08/12/20 15:06 Dry Mouth [place] 30 Ml [place] MUCOUS MEM Q2H PRN Dry Mouth Tamsulosin HCl 0.4 mg 07/25/20 21:00 08/15/20 22:49 Tamsulosin Hcl 0.4 Mg Capsule PO Not Given BEDTIME [facility] Trazodone HCl 50 mg 07/23/20 21:13 08/11/20 00:21 Trazodone Hcl 50 Mg Tablet PO 50 mg BEDTIME PRN Administration Insomnia Vitamin D 50 mcg 07/23/20 21:00 08/15/20 22:49 Cholecalciferol (Vitamin D3) 25 Mcg Tablet PO Not Given BEDTIME [facility] Labs CBC & Chem 7: 08/14/20 10:59 08/14/20 10:59 Assessment and Plan (1) SCOT (acute kidney injury): Status: Acute Assessment and Plan: 65M consult requested for SCOT SCOT possible overdiuresis, lasix and lisinopril has been held, creatinine on 08/14 was 1.88, awaiting repeat lower extremity edema likely due to venous insufficiency elevated lower extremities, wraps HTN toprol pvd dapl, statin
[2020-08-16 14:22] LABS: Alanine Aminotransferase 31 U/L (0-40); Albumin Level 3.7 g/dL (3.5-5.0); Alkaline Phosphatase 68 U/L (39-117); Anion Gap 14 (12-20); Aspartate Amino Transferase 25 U/L (5-37); Bilirubin Total 0.9 mg/dL (0.0-1.0); Blood Urea Nitrogen 37 mg/dL (9-16); Carbon Dioxide 32 mmol/L (22-29); Chloride 93 mmol/L (96-108); Creatinine Clr Calc Pharmacy 77.6; Estimated Glomerular Filt Rate 39; Glucose Random 129 mg/dL (60-115); Potassium 3.7 mmol/L (3.3-5.1); Sodium 135 mmol/L (135-145); Total Protein 6.3 g/dL (6.5-8.0)
[2020-08-17] MEDS: traZODone HCL 50 MG TABLET PO (03:00)
[2020-08-17] MEDS: hydrOXYzine HCL 25 MG TABLET PO (03:00)
--- NOTE | 2020-08-17 10:36 | P.CONNP_ITS ---
History of Present Illness Reason for Consult Consult date: 08/17/20 Reason for consult: SCOT vs CKD Requesting physician: Guy Arana Chief Complaint Chief complaint: psychosis History of Present Illness Narrative: Juan is 65 yo man whom we are asked to see for abnormal kidney function. He was admitted to Psych for psychosis. He is unable to give me an accurate history. On presentation he had been taking lisinopril and lasix. His creat was 1.8 and these were held. His creat remains 1.6. He has refused to provide a urine sample for UA. The record states that he has a hx of schizophren ia, HTN, hyperlipidemia and heart failure as well as PVD. I asked him several questions and his responses may be unreliable. He does say that he has difficulty voiding.He denies use of NSAIDs. He denies having DM but is on metformin at home. His creat was normal in 2018 at 0.8 mg/dl. 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 If so, by whom?: No Do you feel safe in your current relationship?: No Current Relationship Is there a partner from a previous relationship who is making you feel unsafe now?: No Are you made to feel afraid or neglected: No Spiritual Healthcare Practices: none identified Advance Directives: No Advance Directives Information Provided: Yes Do you have thoughts of harming others: None Do you have a plan to hurt others: No Plan Recently lost weight without trying: No How much weight loss: Not applicable Eating poorly because of decreased appetite: Yes Nutrition screen score: 1 Nutrition Risks: No Nutritional Risk Poor oral hygiene: Yes service: No Sexual orientation: Straight/Heterosexual Meds Allergies Allergy/AdvReac Type Severity Reaction Status Date / Time No Known Allergies Allergy Verified 07/21/20 16:39 Active Medications: Current Medications Generic Name Dose Route Start Last Admin Trade Name Jaret PRN Reason Stop Dose Admin Acetaminophen 650 mg 07/23/20 21:13 08/11/20 12:28 Acetaminophen 325 Mg Tablet PO 650 mg Q6H PRN Administration Headache/Pain Mild Scale (1-3) Al Hydroxide/Mg Hydroxide 30 ml 07/23/20 21:13 Magnesium Hydrox/Alum Hydrox 30 Ml Oral.Susp PO Q6H PRN Heartburn/Nausea Aspirin 81 mg 07/25/20 09:00 08/16/20 11:24 Aspirin Enteric Coated 81 Mg Tablet.Dr PO Not Given DAILY [facility] Atorvastatin Calcium 80 mg 07/23/20 21:00 08/16/20 22:15 Atorvastatin Calcium 80 Mg Tablet PO Not Given BEDTIME [facility] Clopidogrel Bisulfate 75 mg 07/23/20 17:00 08/16/20 11:25 Clopidogrel Bisulfate 75 Mg Tablet PO Not Given DAILY [facility] Clozapine 25 mg 08/15/20 09:00 08/16/20 09:49 Clozapine 25 Mg Tablet PO 25 mg DAILY [facility] Administration Enoxaparin Sodium 40 mg 07/29/20 15:15 08/16/20 15:20 Enoxaparin Sodium 40 Mg/0.4 Ml Syringe SUBCUT Not Given Q24H [facility] Finasteride 5 mg 07/23/20 17:00 08/16/20 11:25 Finasteride 5 Mg Tablet PO Not Given DAILY [facility] Hydroxyzine HCl 25 mg 07/23/20 21:13 08/17/20 03:00 Hydroxyzine Hcl 25 Mg Tablet PO 25 mg BEDTIME PRN Administration Anxiety Loperamide HCl 2 mg 07/24/20 15:43 07/24/20 15:54 Loperamide Hcl 2 Mg Capsule PO 2 mg Q4H PRN Administration Diarrhea Magnesium Hydroxide 30 ml 07/23/20 21:13 Milk Of Magnesia 30 Ml Oral.Susp PO DAILY PRN Constipation Metformin HCl 500 mg 08/14/20 17:00 08/16/20 17:33 Metformin Hcl 500 Mg Tablet PO Not Given BIDWM [facility] Metoprolol Succinate 75 mg 07/23/20 17:00 08/16/20 11:25 Metoprolol Succinate Er 25 Mg Tab.Er.24h PO Not Given DAILY [facility] Protocol Multi-Ingred Cream/Lotion/Oil/Oint 1 appl 07/24/20 21:00 08/16/20 22:15 Mineral Oil/Petrolatum,White 106 Gm Tube TOPICAL Not Given BID [facility] Patient Own 1 each 08/14/20 10:27 08/14/20 12:06 Medication (Thera PO 1 each Breath Dry Mouth Q4H PRN Administration Lozenge) Dry Mouth Patient Own 1 each 08/14/20 10:30 08/16/20 22:15 Medication (Biotene PO Not Given 15 Ml) BID [facility] Nystatin 1 appl 07/26/20 19:25 08/16/20 11:26 Nystatin Cream 15 Gm Tube TOPICAL Not Given DAILY [facility] Protocol Omeprazole 20 mg 07/24/20 06:30 08/16/20 11:24 Omeprazole 20 Mg Capsule.Dr PO Not Given DAILY@0630 [facility] Ondansetron HCl 4 mg 08/08/20 09:04 08/08/20 09:27 Ondansetron Odt 4 Mg Tab.Rapdis TRANSLINGU 4 mg Q6H PRN Administration Nausea Saliva Substitute 1 spray 08/12/20 15:06 Dry Mouth [place] 30 Ml [place] MUCOUS MEM Q2H PRN Dry Mouth Tamsulosin HCl 0.4 mg 07/25/20 21:00 08/16/20 22:15 Tamsulosin Hcl 0.4 Mg Capsule PO Not Given BEDTIME [facility] Trazodone HCl 50 mg 07/23/20 21:13 08/17/20 03:00 Trazodone Hcl 50 Mg Tablet PO 50 mg BEDTIME PRN Administration Insomnia Vitamin D 50 mcg 07/23/20 21:00 08/16/20 22:15 Cholecalciferol (Vitamin D3) 25 Mcg Tablet PO Not Given BEDTIME [facility] Home Medications Medication Instructions Recorded Confirmed Last Taken Type aspirin 81 mg PO DAILY 07/22/20 07/22/20 Unknown History atorvastatin 80 mg PO BEDTIME 07/22/20 07/22/20 Unknown History cholecalciferol (vitamin D3) 2,000 unit BEDTIME 07/22/20 07/22/20 Unknown History clopidogrel 75 mg PO DAILY 07/22/20 07/22/20 Unknown History clozapine [Clozaril] 200 mg PO DAILY 07/22/20 07/22/20 Unknown History clozapine [Clozaril] 400 mg PO BEDTIME 07/22/20 07/22/20 Unknown History docusate sodium 100 mg PO BEDTIME 07/22/20 07/22/20 Unknown History finasteride 5 mg PO DAILY 07/22/20 07/22/20 Unknown History furosemide [Lasix] 40 mg PO BID 07/22/20 07/22/20 Unknown History lisinopril 2.5 mg PO DAILY 07/22/20 07/22/20 Unknown History magnesium oxide 800 mg PO DAILY 07/22/20 07/22/20 Unknown History metformin 1,000 mg PO BID 07/22/20 07/22/20 Unknown History metoprolol succinate 75 mg PO DAILY 07/22/20 07/22/20 Unknown History pantoprazole [Protonix] 40 mg PO DAILY 07/22/20 07/22/20 Unknown History tamsulosin 0.4 mg PO DAILY 07/22/20 07/22/20 Unknown History Physical Exam Vital Signs: Last Vital Signs Temp 97.4 F 08/13/20 06:00 Pulse 68 08/15/20 10:25 Resp 16 08/14/20 16:00 BP 118/76 08/13/20 06:00 Pulse Ox 95 08/13/20 06:00 Body Mass Index 42.0 Const General: anxious Nutritional Appearance: overweight Neck Neck: Yes normal visual inspection Thyroid: Thyroid normal Resp Effort & Inspection: normal respiratory effort and able to speak in complete sentences Auscultation: clear to auscultation bilaterally Cardio Jugular venous distension: no JVD Rate: regular rate Heart sounds: S1 normal heart sound present and S2 normal heart sound present Extrem General: Yes edema Results Lab Results Result Diagrams: 08/14/20 10:59 08/16/20 13:50 Lab results: Chemistry 08/14/20 08/16/20 10:59 13:50 Sodium 134 L 135 Potassium 4.0 3.7 Carbon Dioxide 28 32 H BUN 39 H 37 H Creatinine 1.88 H 1.77 H Calcium 9.5 9.0 Hematology 08/14/20 10:59 WBC 8.7 Hgb 11.7 L Plt Count 290 Assessment and Plan (1) SCOT (acute kidney injury): Status: Acute (2) Peripheral vascular disease: Status: Acute (3) HTN (hypertension): Status: Acute This is a 65 yo man with schizophrenia with an elevated creat. His last available creat in 2018 was normal. He is obese, has HTN, PVD and DM (on metformin). We are awaiting a UA and I have ordered a renal US. He states that he may have some diff voiding. He was on lisinopril and lasix and has edema in his legs. My impression thus far with incomplete data is that he has CKD -prehaps due to DKD or HTN, or may have some bladder outflow issues. Given his HTN, I suggest resuming his lisinopril to control his BP as creat has not significantly changed off of it. Continue to hold diuretics. We will get a UA to determine if he has proteinuria and other findings and rule out hydronephroiss with an US. If he has proteinuria then further workup will be warranted. Procedures Date of Service Date of Service: 08/17/20
--- NOTE | 2020-08-17 15:20 | P.PNPSI_ITS ---
Subjective Subjective Date of Service: 08/17/20 Reason For Visit: psychosis Interim History: pt sitting in chair on approach says he's fine, but on further inquiry about how he's doing says i don't know. Pt asks what Clozaril is for and when it's explained he says he will no longer take it. He denies AVH. Denies SI or HI. While talking, pt noticeably internally preoccupied. Mental Status Exam Mental Status Exam Narrative: Patient Appearance: sitting in chair; unkempt Patient Orientation: Person and Place Level of Consciousness: Awake and Alert Patient Behavior: Guarded, Suspicious Mood Description: Constricted Affect Description: Constricted Patient Cognition Impaired: Yes Ability to Follow Directions: Fair Speech Pattern: Clear, Spontaneous Speech and Soft-Spoken Memory Description: Remote Impaired and Episodic Impaired Hallucinations: Auditory Delusions: Paranoid Ideation and Present Thought Process: Illogical and Distracted Thought Content: limited Depressive Symptoms: Increased Anxiety, Diff. Making Decisions, Difficulty Sleeping and Changes in Appetite Judgement: Poor Diagnostics Vital Signs (24Hr): Body Mass Index 42.0 Labs Results: 08/14/20 10:59 08/16/20 13:50 Labs: Laboratory Results - last 48 hr 08/16/20 13:50 Sodium 135 Potassium 3.7 Chloride 93 L Carbon Dioxide 32 H Anion Gap 14 BUN 37 H Creatinine 1.77 H Estim Creat Clear Calc 77.6 Estimated GFR 39 Random Glucose 129 H Calcium 9.0 Total Bilirubin 0.9 AST 25 ALT 31 Alkaline Phosphatase 68 Total Protein 6.3 L Albumin 3.7 Imaging Radiology Impressions: ITS Impressions KUB X-Ray 07/22/20 17:13 IMPRESSION: Moderate volume of stool scattered in colon. No bowel obstruction. Medications Medications Current Medications Generic Name Dose Route Start Last Admin Trade Name Freq PRN Reason Stop Dose Admin Acetaminophen 650 mg 07/23/20 21:13 08/11/20 12:28 Acetaminophen 325 Mg Tablet PO 650 mg Q6H PRN Administration Headache/Pain Mild Scale (1-3) Al Hydroxide/Mg Hydroxide 30 ml 07/23/20 21:13 Magnesium Hydrox/Alum Hydrox 30 Ml Oral.Susp PO Q6H PRN Heartburn/Nausea Aspirin 81 mg 07/25/20 09:00 08/17/20 11:02 Aspirin Enteric Coated 81 Mg Tablet.Dr EDWARDS Not Given DAILY [facility] Atorvastatin Calcium 80 mg 07/23/20 21:00 08/16/20 22:15 Atorvastatin Calcium 80 Mg Tablet PO Not Given BEDTIME [facility] Clopidogrel Bisulfate 75 mg 07/23/20 17:00 08/17/20 11:02 Clopidogrel Bisulfate 75 Mg Tablet PO Not Given DAILY [facility] Clozapine 25 mg 08/15/20 09:00 08/17/20 11:02 Clozapine 25 Mg Tablet PO Not Given DAILY [facility] Enoxaparin Sodium 40 mg 07/29/20 15:15 08/17/20 15:09 Enoxaparin Sodium 40 Mg/0.4 Ml Syringe SUBCUT Not Given Q24H [facility] Finasteride 5 mg 07/23/20 17:00 08/17/20 11:02 Finasteride 5 Mg Tablet PO Not Given DAILY [facility] Hydroxyzine HCl 25 mg 07/23/20 21:13 08/17/20 03:00 Hydroxyzine Hcl 25 Mg Tablet PO 25 mg BEDTIME PRN Administration Anxiety Loperamide HCl 2 mg 07/24/20 15:43 07/24/20 15:54 Loperamide Hcl 2 Mg Capsule PO 2 mg Q4H PRN Administration Diarrhea Magnesium Hydroxide 30 ml 07/23/20 21:13 Milk Of Magnesia 30 Ml Oral.Susp PO DAILY PRN Constipation Metformin HCl 500 mg 08/14/20 17:00 08/17/20 11:02 Metformin Hcl 500 Mg Tablet PO Not Given BIDWM [facility] Metoprolol Succinate 75 mg 07/23/20 17:00 08/17/20 11:03 Metoprolol Succinate Er 25 Mg Tab.Er.24h PO Not Given DAILY [facility] Protocol Multi-Ingred Cream/Lotion/Oil/Oint 1 appl 07/24/20 21:00 08/17/20 11:03 Mineral Oil/Petrolatum,White 106 Gm Tube TOPICAL Not Given BID [facility] Patient Own 1 each 08/14/20 10:27 08/14/20 12:06 Medication (Thera PO 1 each Breath Dry Mouth Q4H PRN Administration Lozenge) Dry Mouth Patient Own 1 each 08/14/20 10:30 08/17/20 11:03 Medication (Biotene PO Not Given 15 Ml) BID [facility] Nystatin 1 appl 07/26/20 19:25 08/17/20 11:03 Nystatin Cream 15 Gm Tube TOPICAL Not Given DAILY [facility] Protocol Omeprazole 20 mg 07/24/20 06:30 08/17/20 11:01 Omeprazole 20 Mg Capsule. PO Not Given DAILY@0630 [facility] Ondansetron HCl 4 mg 08/08/20 09:04 08/08/20 09:27 Ondansetron Odt 4 Mg Tab.Rapdis TRANSLINGU 4 mg Q6H PRN Administration Nausea Saliva Substitute 1 spray 08/12/20 15:06 Dry Mouth [place] 30 Ml [place] MUCOUS MEM Q2H PRN Dry Mouth Tamsulosin HCl 0.4 mg 07/25/20 21:00 08/16/20 22:15 Tamsulosin Hcl 0.4 Mg Capsule PO Not Given BEDTIME [facility] Trazodone HCl 50 mg 07/23/20 21:13 08/17/20 03:00 Trazodone Hcl 50 Mg Tablet PO 50 mg BEDTIME PRN Administration Insomnia Vitamin D 50 mcg 07/23/20 21:00 08/16/20 22:15 Cholecalciferol (Vitamin D3) 25 Mcg Tablet PO Not Given BEDTIME [facility] Allergies Allergies Allergy/AdvReac Type Severity Reaction Status Date / Time No Known Allergies Allergy Verified 07/21/20 16:39 Assessment & Plan Assessment & Plan (1) SCOT (acute kidney injury): Status: Acute Code(s): N17.9 - Acute kidney failure, unspecified (2) Peripheral vascular disease: Status: Acute Code(s): I73.9 - Peripheral vascular disease, unspecified (3) HTN (hypertension): Status: Acute Code(s): I10 - Essential (primary) hypertension Assessment and Plan: Weekend coverage: no change to current tx plan took Clozaril on Tue, but refused on Tuesday ammy to have SCOT and Dr. Pete mendozated nephro This is a 65 yo man with schizophrenia with an elevated creat. His last available creat in 2018 was normal. He is obese, has HTN, PVD and DM (on metformin). We are awaiting a UA and I have ordered a renal US. He states that he may have some diff voiding. He was on lisinopril and lasix and has edema in his legs. My impression thus far with incomplete data is that he has CKD -prehaps due to DKD or HTN, or may have some bladder outflow issues. Given his HTN, I suggest resuming his lisinopril to control his BP as creat has not significantly changed off of it. Continue to hold diuretics. We will get a UA to determine if he has proteinuria and other findings and rule out hydronephroiss with an US. If he has proteinuria then further workup will be warranted. Greater than 50% of the session was spent on counseling and/or coordination of care Reason for contiued inpatient stay Substantial Risk for: med/psych decompensation
--- NOTE | 2020-08-17 15:25 | P.PNPSI_ITS ---
Subjective Subjective Date of Service: 08/17/20 Reason For Visit: psychosis Interim History: sitting in chair says he's fine but on further inquiry about how he's doing says i don't know asks what clozaril is for then says he will no longer take it denies AVH though is internally preoccupied denies SI/HI Mental Status Exam Mental Status Exam Narrative: Patient Appearance: sitting in chair; unkempt Patient Orientation: Person and Place Level of Consciousness: Awake and Alert Patient Behavior: calm Mood Description: Constricted Affect Description: Constricted Patient Cognition Impaired: Yes Ability to Follow Directions: Fair Speech Pattern: Clear, Spontaneous Speech and Soft-Spoken Memory Description: Remote Impaired and Episodic Impaired Hallucinations: internally preoccupied Delusions: Present Thought Process: Illogical and Distracted Thought Content: limited Depressive Symptoms: Increased Anxiety, Diff. Making Decisions, Difficulty Sleeping and Changes in Appetite Judgement: Poor Diagnostics Vital Signs (24Hr): Body Mass Index 42.0 Labs Results: 08/14/20 10:59 08/16/20 13:50 Labs: Laboratory Results - last 48 hr 08/16/20 13:50 Sodium 135 Potassium 3.7 Chloride 93 L Carbon Dioxide 32 H Anion Gap 14 BUN 37 H Creatinine 1.77 H Estim Creat Clear Calc 77.6 Estimated GFR 39 Random Glucose 129 H Calcium 9.0 Total Bilirubin 0.9 AST 25 ALT 31 Alkaline Phosphatase 68 Total Protein 6.3 L Albumin 3.7 Imaging Radiology Impressions: ITS Impressions KUB X-Ray 07/22/20 17:13 IMPRESSION: Moderate volume of stool scattered in colon. No bowel obstruction. Medications Medications Current Medications Generic Name Dose Route Start Last Admin Trade Name Ponchoq PRN Reason Stop Dose Admin Acetaminophen 650 mg 07/23/20 21:13 08/11/20 12:28 Acetaminophen 325 Mg Tablet PO 650 mg Q6H PRN Administration Headache/Pain Mild Scale (1-3) Al Hydroxide/Mg Hydroxide 30 ml 07/23/20 21:13 Magnesium Hydrox/Alum Hydrox 30 Ml Oral.Susp PO Q6H PRN Heartburn/Nausea Aspirin 81 mg 07/25/20 09:00 08/17/20 11:02 Aspirin Enteric Coated 81 Mg Tablet.Dr PO Not Given DAILY [facility] Atorvastatin Calcium 80 mg 07/23/20 21:00 08/16/20 22:15 Atorvastatin Calcium 80 Mg Tablet PO Not Given BEDTIME [facility] Clopidogrel Bisulfate 75 mg 07/23/20 17:00 08/17/20 11:02 Clopidogrel Bisulfate 75 Mg Tablet PO Not Given DAILY [facility] Clozapine 25 mg 08/15/20 09:00 08/17/20 11:02 Clozapine 25 Mg Tablet PO Not Given DAILY [facility] Enoxaparin Sodium 40 mg 07/29/20 15:15 08/17/20 15:09 Enoxaparin Sodium 40 Mg/0.4 Ml Syringe SUBCUT Not Given Q24H [facility] Finasteride 5 mg 07/23/20 17:00 08/17/20 11:02 Finasteride 5 Mg Tablet PO Not Given DAILY [facility] Hydroxyzine HCl 25 mg 07/23/20 21:13 08/17/20 03:00 Hydroxyzine Hcl 25 Mg Tablet PO 25 mg BEDTIME PRN Administration Anxiety Loperamide HCl 2 mg 07/24/20 15:43 07/24/20 15:54 Loperamide Hcl 2 Mg Capsule PO 2 mg Q4H PRN Administration Diarrhea Magnesium Hydroxide 30 ml 07/23/20 21:13 Milk Of Magnesia 30 Ml Oral.Susp PO DAILY PRN Constipation Metformin HCl 500 mg 08/14/20 17:00 08/17/20 11:02 Metformin Hcl 500 Mg Tablet PO Not Given BIDWM [facility] Metoprolol Succinate 75 mg 07/23/20 17:00 08/17/20 11:03 Metoprolol Succinate Er 25 Mg Tab.Er.24h PO Not Given DAILY [facility] Protocol Multi-Ingred Cream/Lotion/Oil/Oint 1 appl 07/24/20 21:00 08/17/20 11:03 Mineral Oil/Petrolatum,White 106 Gm Tube TOPICAL Not Given BID [facility] Patient Own 1 each 08/14/20 10:27 08/14/20 12:06 Medication (Thera PO 1 each Breath Dry Mouth Q4H PRN Administration Lozenge) Dry Mouth Patient Own 1 each 08/14/20 10:30 08/17/20 11:03 Medication (Biotene PO Not Given 15 Ml) BID [facility] Nystatin 1 appl 07/26/20 19:25 08/17/20 11:03 Nystatin Cream 15 Gm Tube TOPICAL Not Given DAILY [facility] Protocol Omeprazole 20 mg 07/24/20 06:30 08/17/20 11:01 Omeprazole 20 Mg Capsule. PO Not Given DAILY@0630 [facility] Ondansetron HCl 4 mg 08/08/20 09:04 08/08/20 09:27 Ondansetron Odt 4 Mg Tab.Rapdis TRANSLINGU 4 mg Q6H PRN Administration Nausea Saliva Substitute 1 spray 08/12/20 15:06 Dry Mouth [place] 30 Ml [place] MUCOUS MEM Q2H PRN Dry Mouth Tamsulosin HCl 0.4 mg 07/25/20 21:00 08/16/20 22:15 Tamsulosin Hcl 0.4 Mg Capsule PO Not Given BEDTIME [facility] Trazodone HCl 50 mg 07/23/20 21:13 08/17/20 03:00 Trazodone Hcl 50 Mg Tablet PO 50 mg BEDTIME PRN Administration Insomnia Vitamin D 50 mcg 07/23/20 21:00 08/16/20 22:15 Cholecalciferol (Vitamin D3) 25 Mcg Tablet PO Not Given BEDTIME [facility] Allergies Allergies Allergy/AdvReac Type Severity Reaction Status Date / Time No Known Allergies Allergy Verified 07/21/20 16:39 Assessment & Plan Assessment & Plan (1) SCOT (acute kidney injury): Status: Acute Code(s): N17.9 - Acute kidney failure, unspecified (2) Peripheral vascular disease: Status: Acute Code(s): I73.9 - Peripheral vascular disease, unspecified (3) HTN (hypertension): Status: Acute Code(s): I10 - Essential (primary) hypertension Assessment and Plan: coverage: no change to current tx plan took Clozaril on Tue, but refused on Tuesday conitnues to have SCOT and Dr. Freeman alterted nephro This is a 65 yo man with schizophrenia with an elevated creat. His last available creat in 2018 was normal. He is obese, has HTN, PVD and DM (on metformin). We are awaiting a UA and I have ordered a renal US. He states that he may have some diff voiding. He was on lisinopril and lasix and has edema in his legs. My impression thus far with incomplete data is that he has CKD -prehaps due to D KD or HTN, or may have some bladder outflow issues. Given his HTN, I suggest resuming his lisinopril to control his BP as creat has not significantly changed off of it. Continue to hold diuretics. We will get a UA to determine if he has proteinuria and other findings and rule out hydronephroiss with an US. If he has proteinuria then further workup will be warranted. Greater than 50% of the session was spent on counseling and/or coordination of care Reason for contiued inpatient stay Substantial Risk for: inability to function
[2020-08-17] MEDS: metFORMIN HCl 500 MG TABLET PO (17:15)
--- NOTE | 2020-08-18 16:07 | P.PNPSI_ITS ---
Subjective Subjective Date of Service: 08/18/20 Reason For Visit: psychosis Subjective Notes: Conditional Voluntary Healthcare Proxy: No Guardianship: No Medical Problems Affecting Mental Status: Yes Interim History: Pt active in milieu, increase in walking, attending some group activity. Continues team reports to refuse medications and treatment. Lisinopril re-ordered per recommendation of nephrology, however pt refusing. Ultrasound ordered by nephrology as well. Clozapine titration is difficult as pt is inconsistent with acceptance of medications. Refusing diagnostics. Manuelito amendment pending. Review of Systems Psychiatric: Reports abnormal sleep pattern, Reports anxiety, Reports behavioral changes, Reports change in appetite, Reports difficulty concentrating, Reports auditory hallucinations, Reports anhedonia, Reports mood swings, Reports paranoia and Reports hallucinations Mental Status Exam Mental Status Exam Patient Appearance: Fatigued Patient Orientation: Person Level of Consciousness: Awake and Alert Patient Behavior: Appropriate, Guarded, Suspicious, Resistive to Care, Avoidant and Isolative Diagnostics Vital Signs (24Hr): Body Mass Index 42.0 Labs Results: 08/14/20 10:59 08/16/20 13:50 Imaging Radiology Impressions: ITS Impressions KUB X-Ray 07/22/20 17:13 IMPRESSION: Moderate volume of stool scattered in colon. No bowel obstruction. Medications Medications Current Medications Generic Name Dose Route Start Last Admin Trade Name Freq PRN Reason Stop Dose Admin Acetaminophen 650 mg 07/23/20 21:13 08/11/20 12:28 Acetaminophen 325 Mg Tablet PO 650 mg Q6H PRN Administration Headache/Pain Mild Scale (1-3) Al Hydroxide/Mg Hydroxide 30 ml 07/23/20 21:13 Magnesium Hydrox/Alum Hydrox 30 Ml Oral.Susp PO Q6H PRN Heartburn/Nausea Aspirin 81 mg 07/25/20 09:00 08/18/20 10:41 Aspirin Enteric Coated 81 Mg Tablet. PO Not Given DAILY [facility] Atorvastatin Calcium 80 mg 07/23/20 21:00 08/17/20 21:02 Atorvastatin Calcium 80 Mg Tablet PO Not Given BEDTIME [facility] Clopidogrel Bisulfate 75 mg 07/23/20 17:00 08/18/20 10:43 Clopidogrel Bisulfate 75 Mg Tablet PO Not Given DAILY [facility] Clozapine 25 mg 08/15/20 09:00 08/18/20 10:43 Clozapine 25 Mg Tablet PO Not Given DAILY [facility] Enoxaparin Sodium 40 mg 07/29/20 15:15 08/18/20 15:51 Enoxaparin Sodium 40 Mg/0.4 Ml Syringe SUBCUT Not Given Q24H [facility] Finasteride 5 mg 07/23/20 17:00 08/18/20 10:43 Finasteride 5 Mg Tablet PO Not Given DAILY [facility] Hydroxyzine HCl 25 mg 07/23/20 21:13 08/17/20 03:00 Hydroxyzine Hcl 25 Mg Tablet PO 25 mg BEDTIME PRN Administration Anxiety Lisinopril 2.5 mg 08/18/20 09:00 08/18/20 10:41 Lisinopril 2.5 Mg Tablet PO Not Given DAILY [facility] Protocol Loperamide HCl 2 mg 07/24/20 15:43 07/24/20 15:54 Loperamide Hcl 2 Mg Capsule PO 2 mg Q4H PRN Administration Diarrhea Magnesium Hydroxide 30 ml 07/23/20 21:13 Milk Of Magnesia 30 Ml Oral.Susp PO DAILY PRN Constipation Metformin HCl 500 mg 08/14/20 17:00 08/18/20 10:39 Metformin Hcl 500 Mg Tablet PO Not Given BIDWM [facility] Metoprolol Succinate 75 mg 07/23/20 17:00 08/18/20 10:40 Metoprolol Succinate Er 25 Mg Tab.Er.24h PO Not Given DAILY [facility] Protocol Multi-Ingred Cream/Lotion/Oil/Oint 1 appl 07/24/20 21:00 08/18/20 10:40 Mineral Oil/Petrolatum,White 106 Gm Tube TOPICAL Not Given BID [facility] Patient Own 1 each 08/14/20 10:27 08/14/20 12:06 Medication (Thera PO 1 each Breath Dry Mouth Q4H PRN Administration Lozenge) Dry Mouth Patient Own 1 each 08/14/20 10:30 08/18/20 10:40 Medication (Biotene PO Not Given 15 Ml) BID [facility] Nystatin 1 appl 07/26/20 19:25 08/18/20 10:40 Nystatin Cream 15 Gm Tube TOPICAL Not Given DAILY [facility] Protocol Omeprazole 20 mg 07/24/20 06:30 08/18/20 10:39 Omeprazole 20 Mg Capsule.Dr PO Not Given DAILY@0630 [facility] Ondansetron HCl 4 mg 08/08/20 09:04 08/08/20 09:27 Ondansetron Odt 4 Mg Tab.Rapdis TRANSLINGU 4 mg Q6H PRN Administration Nausea Saliva Substitute 1 spray 08/12/20 15:06 Dry Mouth [place] 30 Ml [place] MUCOUS MEM Q2H PRN Dry Mouth Tamsulosin HCl 0.4 mg 07/25/20 21:00 08/17/20 21:11 Tamsulosin Hcl 0.4 Mg Capsule PO Not Given BEDTIME [facility] Trazodone HCl 50 mg 07/23/20 21:13 08/17/20 03:00 Trazodone Hcl 50 Mg Tablet PO 50 mg BEDTIME PRN Administration Insomnia Vitamin D 50 mcg 07/23/20 21:00 08/17/20 21:02 Cholecalciferol (Vitamin D3) 25 Mcg Tablet PO Not Given BEDTIME [facility] Allergies Allergies Allergy/AdvReac Type Severity Reaction Status Date / Time No Known Allergies Allergy Verified 07/21/20 16:39 Assessment & Plan Assessment & Plan (1) SCOT (acute kidney injury): Status: Acute Code(s): N17.9 - Acute kidney failure, unspecified (2) Peripheral vascular disease: Status: Acute Code(s): I73.9 - Peripheral vascular disease, unspecified (3) HTN (hypertension): Status: Acute Code(s): I10 - Essential (primary) hypertension Assessment and Plan: This is a 65 yo man with schizophrenia with an elevated creat. His last available creat in 2018 was normal. He is obese, has HTN, PVD and DM (on metformin). We are awaiting a UA and I have ordered a renal US. He states that he may have some diff voiding. He was on lisinopril and lasix and has edema in his legs. My impression thus far with incomplete data is that he has CKD -prehaps due to DKD or HTN, or may have some bladder outflow issues. Given his HTN, I suggest resuming his lisinopril to control his BP as creat has not significantly changed off of it. Continue to hold diuretics. We will get a UA to determine if he has proteinuria and other findings and rule out hydronephroiss with an US. If he has proteinuria then further workup will be warranted. (4) Schizophrenia, paranoid, subchronic with acute exacerbation: Status: Acute Code(s): F20.0 - Paranoid schizophrenia Assessment and Plan: Clozaril compliance is inconsistent currently. Will keep dosage at 25 mg to avoid adverse response. Await legal input regarding how to proceed to provide consistent care for pt who is currently psychotic. Greater than 50% of the session was spent on counseling and/or coordination of care Reason for contiued inpatient stay Substantial Risk for: harm to self, inability to function, rapid decompensation and med/psych decompensation
[2020-08-18] MEDS: metFORMIN HCl 500 MG TABLET PO (17:03)
[2020-08-19] MEDS: Nystatin Cream 15 GM TUBE 1 APPL TOPICAL (09:07)
[2020-08-19] MEDS: Mineral Oil/Petrolatum,White 106 GM Tube 1 APPL TOPICAL (10:01)
--- NOTE | 2020-08-19 16:51 | HO.PSYCHPN ---
Subjective Subjective Date of Service: 08/19/20 Reason For Visit: psychosis Subjective Notes: Conditional Voluntary Healthcare Proxy: No Guardianship: No Medical Problems Affecting Mental Status: No Interim History: Observed in milieu. Visable, pre-occupied, is able to be around others. Team reports med refusal, minimal intake, attention to ADL's along with response to internal stimuli, delusions of having done something bad and believing court awaits him outside of the doors of the unit. No word on process of Manuelito guardianship addendum. Medication Compliance: No Side effects from medications: No Attending Groups: Intermittent Review of Systems Review of Systems Yes Unobtainable due to mental status Reports behavioral changes and Reports confusion Psychiatric: Reports abnormal sleep pattern (insomnia), Reports anxiety, Reports behavioral changes, Reports change in appetite, Reports confusion, Reports depression, Reports difficulty concentrating, Reports auditory hallucinations, Reports hopelessness, Reports irritability, Reports anhedonia, Reports mood swings, Reports paranoia, Reports visual hallucinations and Reports hallucinations Mental Status Exam Mental Status Exam Patient Appearance: Disheveled Patient Orientation: Person and Place Level of Consciousness: Alert Patient Behavior: Guarded, Cooperative, Suspicious, Anxious, Fearful, Resistive to Care, Fatigued and Distractible Mood Description: Suspicious and Withdrawn Affect Description: Constricted Patient Cognition Impaired: Yes Ability to Follow Directions: Fair Speech Pattern: Perseverating, Spontaneous Speech and Soft-Spoken Memory Description: Remote Impaired, Immediate Impaired and Episodic Impaired Hallucinations: Auditory Delusions: Being Controlled, Paranoid Ideation and Present Perceptual Disturbances: Derealization Thought Process: Illogical, Distracted and Rumination Thought Content: positive for [place], positive for Circumstantial, positive for Perseveration, positive for Preoccupation, positive for Thought Blocking, positive for Disorganized and positive for Suicidal Ideation (no) Depressive Symptoms: Increased Anxiety, Insomnia, Increased Irritability, Difficulty Sleeping, Changes in Appetite, Significant Weight Loss, Loss of Int. in Activity, Feelings of Worthlessness, Hopelessness, Isolating-Friends/Family, Unhappiness, Loss of Energy and Difficulty Concentrating Abnormal Motor Activity Signs and Symptoms: Restlessness Judgement: Poor Diagnostics Vital Signs (24Hr): Body Mass Index 42.0 Labs Results: 08/14/20 10:59 08/16/20 13:50 Imaging Radiology Impressions: ITS Impressions [facility] X-Ray 07/22/20 17:13 IMPRESSION: Moderate volume of stool scattered in colon. No bowel obstruction. Medications Medications Current Medications Generic Name Dose Route Start Last Admin Trade Name Freq PRN Reason Stop Dose Admin Acetaminophen 650 mg 07/23/20 21:13 08/11/20 12:28 Acetaminophen 325 Mg Tablet PO 650 mg Q6H PRN Administration Headache/Pain Mild Scale (1-3) Al Hydroxide/Mg Hydroxide 30 ml 07/23/20 21:13 Magnesium Hydrox/Alum Hydrox 30 Ml Oral.Susp PO Q6H PRN Heartburn/Nausea Aspirin 81 mg 07/25/20 09:00 08/19/20 10:05 Aspirin Enteric Coated 81 Mg Tablet.Dr PO Not Given DAILY [facility] Atorvastatin Calcium 80 mg 07/23/20 21:00 08/18/20 21:20 Atorvastatin Calcium 80 Mg Tablet PO Not Given BEDTIME [facility] Clopidogrel Bisulfate 75 mg 07/23/20 17:00 08/19/20 10:05 Clopidogrel Bisulfate 75 Mg Tablet PO Not Given DAILY [facility] Clozapine 25 mg 08/15/20 09:00 08/19/20 10:05 Clozapine 25 Mg Tablet PO Not Given DAILY [facility] Enoxaparin Sodium 40 mg 07/29/20 15:15 08/19/20 15:33 Enoxaparin Sodium 40 Mg/0.4 Ml Syringe SUBCUT Not Given Q24H [facility] Finasteride 5 mg 07/23/20 17:00 08/19/20 10:05 Finasteride 5 Mg Tablet PO Not Given DAILY [facility] Hydroxyzine HCl 25 mg 07/23/20 21:13 08/17/20 03:00 Hydroxyzine Hcl 25 Mg Tablet PO 25 mg BEDTIME PRN Administration Anxiety Lisinopril 2.5 mg 08/18/20 09:00 08/19/20 10:05 Lisinopril 2.5 Mg Tablet PO Not Given DAILY [facility] Protocol Loperamide HCl 2 mg 07/24/20 15:43 07/24/20 15:54 Loperamide Hcl 2 Mg Capsule PO 2 mg Q4H PRN Administration Diarrhea Magnesium Hydroxide 30 ml 07/23/20 21:13 Milk Of Magnesia 30 Ml Oral.Susp PO DAILY PRN Constipation Metformin HCl 500 mg 08/14/20 17:00 08/19/20 10:04 Metformin Hcl 500 Mg Tablet PO Not Given BIDWM [facility] Metoprolol Succinate 75 mg 07/23/20 17:00 08/19/20 10:06 Metoprolol Succinate Er 25 Mg Tab.Er.24h PO Not Given DAILY [facility] Protocol Multi-Ingred Cream/Lotion/Oil/Oint 1 appl 07/24/20 21:00 08/19/20 10:01 Mineral Oil/Petrolatum,White 106 Gm Tube TOPICAL 1 appl BID [facility] Administration Patient Own 1 each 08/14/20 10:27 08/14/20 12:06 Medication (Thera PO 1 each Breath Dry Mouth Q4H PRN Administration Lozenge) Dry Mouth Patient Own 1 each 08/14/20 10:30 08/19/20 10:01 Medication (Biotene PO Not Given 15 Ml) BID [facility] Nystatin 1 appl 07/26/20 19:25 08/19/20 09:07 Nystatin Cream 15 Gm Tube TOPICAL 1 appl DAILY [facility] Administration Protocol Omeprazole 20 mg 07/24/20 06:30 08/19/20 10:04 Omeprazole 20 Mg Capsule.Dr PO Not Given DAILY@0630 [facility] Ondansetron HCl 4 mg 08/08/20 09:04 08/08/20 09:27 Ondansetron Odt 4 Mg Tab.Rapdis TRANSLINGU 4 mg Q6H PRN Administration Nausea Saliva Substitute 1 spray 08/12/20 15:06 Dry Mouth [place] 30 Ml [place] MUCOUS MEM Q2H PRN Dry Mouth Tamsulosin HCl 0.4 mg 07/25/20 21:00 08/18/20 21:21 Tamsulosin Hcl 0.4 Mg Capsule PO Not Given BEDTIME [facility] Trazodone HCl 50 mg 07/23/20 21:13 08/17/20 03:00 Trazodone Hcl 50 Mg Tablet PO 50 mg BEDTIME PRN Administration Insomnia Vitamin D 50 mcg 07/23/20 21:00 08/18/20 21:20 Cholecalciferol (Vitamin D3) 25 Mcg Tablet PO Not Given BEDTIME [facility] Allergies Allergies Allergy/AdvReac Type Severity Reaction Status Date / Time No Known Allergies Allergy Verified 07/21/20 16:39 Assessment & Plan Assessment & Plan (1) SCOT (acute kidney injury): Status: Acute Code(s): N17.9 - Acute kidney failure, unspecified (2) Peripheral vascular disease: Status: Acute Code(s): I73.9 - Peripheral vascular disease, unspecified (3) HTN (hypertension): Status: Acute Code(s): I10 - Essential (primary) hypertension Assessment and Plan: This is a 65 yo man with schizophrenia with an elevated creat. His last available creat in 2018 was normal. He is obese, has HTN, PVD and DM (on metformin). We are awaiting a UA and I have ordered a renal US. He states that he may have some diff voiding. He was on lisinopril and lasix and has edema in his legs. My impression thus far with incomplete data is that he has CKD -prehaps due to DKD or HTN, or may have some bladder outflow issues. Given his HTN, I suggest resuming his lisinopril to control his BP as creat has not significantly changed off of it. Continue to hold diuretics. We will get a UA to determine if he has proteinuria and other findings and rule out hydronephroiss with an US. If he has proteinuria then further workup will be warranted. (4) Schizophrenia, paranoid, subchronic with acute exacerbation: Status: Acute Code(s): F20.0 - Paranoid schizophrenia Assessment and Plan: Clozaril compliance is inconsistent currently. Will keep dosage at 25 mg to avoid adverse response. Await legal input regarding how to proceed to provide consistent care for pt who is currently psychotic. Continue 0ne to [facility] pt as he will allow. [place] building. Greater than 50% of the session was spent on counseling and/or coordination of care Reason for contiued inpatient stay Substantial Risk for: harm to self, harm to others, inability to function, rapid decompensation and med/psych decompensation
[2020-08-19] MEDS: metFORMIN HCl 500 MG TABLET PO (17:06)
[2020-08-19 17:23] VITALS: BP 120/56; RESP 18; TEMP 36.9; O2SAT 95
[2020-08-19 18:59] VITALS: PULSE 103
[2020-08-19] MEDS: Atorvastatin Calcium 80 MG TABLET PO (20:45)
[2020-08-19] MEDS: Cholecalciferol (Vitamin D3) 25 MCG TABLET 50 MCG PO (20:45)
[2020-08-19] MEDS: Tamsulosin HCL 0.4 MG CAPSULE PO (20:46)
[2020-08-20 06:00] VITALS: BP 120/61; PULSE 107; RESP 20; TEMP 37.2; O2SAT 98
--- NOTE | 2020-08-20 16:43 | HO.PSYCHPN ---
Subjective Subjective Date of Service: 08/20/20 Reason For Visit: psychosis Subjective Notes: Conditional Voluntary Healthcare Proxy: No Guardianship: Yes ([facility] Manuel[facility] pending addendum) Medical Problems Affecting Mental Status: Yes (psychosis is interfering with sleep, appetite, self care.) Interim History: Juan agreed to meet briefly. He was quiet, had eye contact that appears to look through one without focus and responded with mostly one word answers-yes, no, uh-huh and yup. Review of the reason for hospitalization, need for care, rationale for medicine and diagnostic requests and medical concerns. He denied questions but again did not appear to focus on our conversation. He denies pain, affirms that he is not sleeping well or eating well and is not able to identify any foods we can provide that will help him to improve intake except Pepsi and Coke. He denies pain. He is aware that he has lost weight but states he is unsure of how much. Agrees to weekly weights. Received a message later in the day from pt's representation Hanna Coatsisiah [phone]. She would like to schedule a zoom meeting so the motion to amend pt's Jesse's guardianship may move forward. Angelica Kristy [facility] returned her call. Pt observed posturing and interacting with the floor posturing by the nursing station. Calm while doing this-at one point appeared to be stretching during this time. Pt appears to be responding to internal stimuli and is poorly modulated to the environment. Medication Compliance: No Side effects from medications: No Attending Groups: Intermittent Review of Systems Review of Systems Yes Unobtainable due to mental status Reports behavioral changes and Reports confusion Psychiatric: Reports abnormal sleep pattern, Reports anxiety, Reports behavioral changes, Reports change in appetite, Reports confusion, Reports depression, Reports difficulty concentrating, Reports auditory hallucinations, Reports hopelessness, Reports irritability, Reports anhedonia, Reports paranoia, Reports visual hallucinations and Reports hallucinations Mental Status Exam Mental Status Exam Patient Appearance: Fatigued and Disheveled Patient Orientation: Person Level of Consciousness: Awake Patient Behavior: Guarded, Posturing, Cooperative, Passive, Suspicious, Restless, Wandering, Anxious, Fearful, Resistive to Care, Avoidant, Fatigued, Distractible, Isolative, Good Eye Contact and Uncooperative Mood Description: Suspicious, Withdrawn, Depressed, Flat and Apprehensive Affect Description: Flat Patient Cognition Impaired: Yes Ability to Follow Directions: Fair Speech Pattern: Impoverished, Difficulty Finding Words, Spontaneous Speech, Soft-Spoken, Delayed and Long Pauses Memory Description: Remote Impaired, Immediate Impaired, Episodic Impaired, Recent Impaired and Working Impaired Hallucinations: Auditory, Visual and Command Delusions: Being Controlled, Paranoid Ideation and Present Perceptual Disturbances: Depersonalization and Derealization Thought Process: Distracted, Rumination and Slowed Thinking Thought Content: positive for [place], positive for Perseveration, positive for [place] of [place], positive for Preoccupation, positive for Thought Blocking, positive for Slowed Thinking, positive for Disorganized and positive for Suicidal Ideation (shakes his head no when asked without a verbal response) Depressive Symptoms: Increased Anxiety, Insomnia, Diff. Making Decisions, Increased Irritability, Difficulty Sleeping, Changes in Appetite, Significant Weight Loss, Loss of Int. in Activity, Hopelessness, Isolating-Friends/Family, Unhappiness, Increased Fatigue, Low Self Esteem, Loss of Energy and Difficulty Concentrating Abnormal Motor Activity Signs and Symptoms: Restlessness Judgement: Poor Diagnostics Vital Signs (24Hr): Vital Signs - 24 hr 08/19/20 17:23 08/19/20 18:59 08/20/20 06:00 Temperature 98.5 F 98.9 F Pulse Rate 103 H 107 H Respiratory Rate 18 20 Blood Pressure 120/56 L 120/61 Pulse Oximetry 95 98 Body Mass Index 42.0 Labs Results: 08/14/20 10:59 08/16/20 13:50 Imaging Radiology Impressions: ITS Impressions KUB X-Ray 07/22/20 17:13 IMPRESSION: Moderate volume of stool scattered in colon. No bowel obstruction. Medications Medications Current Medications Generic Name Dose Route Start Last Admin Trade Name Freq PRN Reason Stop Dose Admin Acetaminophen 650 mg 07/23/20 21:13 08/11/20 12:28 Acetaminophen 325 Mg Tablet PO 650 mg Q6H PRN Administration Headache/Pain Mild Scale (1-3) Al Hydroxide/Mg Hydroxide 30 ml 07/23/20 21:13 Magnesium Hydrox/Alum Hydrox 30 Ml Oral.Susp PO Q6H PRN Heartburn/Nausea Aspirin 81 mg 07/25/20 09:00 08/20/20 10:02 Aspirin Enteric Coated 81 Mg Tablet.Dr PO Not Given DAILY [facility] Atorvastatin Calcium 80 mg 07/23/20 21:00 08/19/20 20:45 Atorvastatin Calcium 80 Mg Tablet PO 80 mg BEDTIME [facility] Administration Clopidogrel Bisulfate 75 mg 07/23/20 17:00 08/20/20 10:02 Clopidogrel Bisulfate 75 Mg Tablet PO Not Given DAILY [facility] Clozapine 25 mg 08/15/20 09:00 08/20/20 10:02 Clozapine 25 Mg Tablet PO Not Given DAILY [facility] Enoxaparin Sodium 40 mg 07/29/20 15:15 08/20/20 14:26 Enoxaparin Sodium 40 Mg/0.4 Ml Syringe SUBCUT Not Given Q24H [facility] Finasteride 5 mg 07/23/20 17:00 08/20/20 10:02 Finasteride 5 Mg Tablet PO Not Given DAILY [facility] Hydroxyzine HCl 25 mg 07/23/20 21:13 08/17/20 03:00 Hydroxyzine Hcl 25 Mg Tablet PO 25 mg BEDTIME PRN Administration Anxiety Lisinopril 2.5 mg 08/18/20 09:00 08/20/20 10:02 Lisinopril 2.5 Mg Tablet PO Not Given DAILY [facility] Protocol Loperamide HCl 2 mg 07/24/20 15:43 07/24/20 15:54 Loperamide Hcl 2 Mg Capsule PO 2 mg Q4H PRN Administration Diarrhea Magnesium Hydroxide 30 ml 07/23/20 21:13 Milk Of Magnesia 30 Ml Oral.Susp PO DAILY PRN Constipation Metformin HCl 500 mg 08/14/20 17:00 08/20/20 16:42 Metformin Hcl 500 Mg Tablet PO Not Given BIDWM [facility] Metoprolol Succinate 75 mg 07/23/20 17:00 08/20/20 10:02 Metoprolol Succinate Er 25 Mg Tab.Er.24h PO Not Given DAILY [facility] Protocol Multi-Ingred Cream/Lotion/Oil/Oint 1 appl 07/24/20 21:00 08/20/20 10:03 Mineral Oil/Petrolatum,White 106 Gm Tube TOPICAL Not Given BID [facility] Patient Own 1 each 08/14/20 10:27 08/14/20 12:06 Medication (Thera PO 1 each Breath Dry Mouth Q4H PRN Administration Lozenge) Dry Mouth Patient Own 1 each 08/14/20 10:30 08/20/20 10:03 Medication (Biotene PO Not Given 15 Ml) BID [facility] Nystatin 1 appl 07/26/20 19:25 08/20/20 10:03 Nystatin Cream 15 Gm Tube TOPICAL Not Given DAILY [facility] Protocol Omeprazole 20 mg 07/24/20 06:30 08/20/20 10:01 Omeprazole 20 Mg Capsule. PO Not Given DAILY@0630 [facility] Ondansetron HCl 4 mg 08/08/20 09:04 08/08/20 09:27 Ondansetron Odt 4 Mg Tab.Rapdis TRANSLINGU 4 mg Q6H PRN Administration Nausea Saliva Substitute 1 spray 08/12/20 15:06 Dry Mouth [place] 30 Ml [place] MUCOUS MEM Q2H PRN Dry Mouth Tamsulosin HCl 0.4 mg 07/25/20 21:00 08/19/20 20:46 Tamsulosin Hcl 0.4 Mg Capsule PO 0.4 mg BEDTIME [facility] Administration Trazodone HCl 50 mg 07/23/20 21:13 08/17/20 03:00 Trazodone Hcl 50 Mg Tablet PO 50 mg BEDTIME PRN Administration Insomnia Vitamin D 50 mcg 07/23/20 21:00 08/19/20 20:45 Cholecalciferol (Vitamin D3) 25 Mcg Tablet PO 50 mcg BEDTIME [facility] Administration Allergies Allergies Allergy/AdvReac Type Severity Reaction Status Date / Time No Known Allergies Allergy Verified 07/21/20 16:39 Assessment & Plan Assessment & Plan (1) SCOT (acute kidney injury): Status: Acute Code(s): N17.9 - Acute kidney failure, unspecified Assessment and Plan: - Refuses follow up labs today. (2) Peripheral vascular disease: Status: Acute Code(s): I73.9 - Peripheral vascular disease, unspecified (3) HTN (hypertension): Status: Acute Code(s): I10 - Essential (primary) hypertension Assessment and Plan: This is a 65 yo man with schizophrenia with an elevated creat. His last available creat in 2018 was normal. He is obese, has HTN, PVD and DM (on metformin). We are awaiting a UA and I have ordered a renal US. He states that he may have some diff voiding. He was on lisinopril and lasix and has edema in his legs. My impression thus far with incomplete data is that he has CKD -prehaps due to DKD or HTN, or may have some bladder outflow issues. Given his HTN, I suggest resuming his lisinopril to control his BP as creat has not significantly changed off of it. Continue to hold diuretics. We will get a UA to determine if he has proteinuria and other findings and rule out hydronephroiss with an US. If he has proteinuria then further workup will be warranted. (4) Schizophrenia, paranoid, subchronic with acute exacerbation: Status: Acute Code(s): F20.0 - Paranoid schizophrenia Assessment and Plan: Clozaril compliance is inconsistent currently. Will keep dosage at 25 mg to avoid adverse response. Await legal input regarding how to proceed to provide consistent care for pt who is currently psychotic. Continue 0ne to [facility] pt as he will allow. [place] building. Greater than 50% of the session was spent on counseling and/or coordination of care Reason for contiued inpatient stay Substantial Risk for: harm to self, harm to others, inability to function, rapid decompensation and med/psych decompensation
[2020-08-20 17:32] VITALS: BP 128/65; PULSE 110; RESP 18; TEMP 36.8; O2SAT 95
[2020-08-20] MEDS: Atorvastatin Calcium 80 MG TABLET PO (21:24)
[2020-08-20] MEDS: Cholecalciferol (Vitamin D3) 25 MCG TABLET 50 MCG PO (21:24)
[2020-08-20] MEDS: Mineral Oil/Petrolatum,White 106 GM Tube 1 APPL TOPICAL (21:25)
[2020-08-20] MEDS: Tamsulosin HCL 0.4 MG CAPSULE PO (21:25)
[2020-08-21 06:35] VITALS: BP 117/65; PULSE 95; RESP 18; TEMP 36.6; O2SAT 96
--- NOTE | 2020-08-21 16:52 | HO.PSYCHPN ---
Subjective Subjective Date of Service: 08/21/20 Reason For Visit: psychosis Subjective Notes: Conditional Voluntary Healthcare Proxy: No Guardianship: No Medical Problems Affecting Mental Status: Yes Interim History: Pt continues on one to one. Appetite, sleep, care compliance continue to remain impacted by psychosis, lability, dysphoria and confusion. Addendum to [place] guardianship continues to be pending. Pt's Jesse's guardian, Mary Barnhart will visit pt tomorrow to generate a report to the court [phone]. Medication Compliance: No Side effects from medications: No Attending Groups: No Review of Systems Review of Systems Yes Unobtainable due to mental status Reports behavioral changes and Reports confusion Psychiatric: Reports abnormal sleep pattern, Reports anxiety, Reports behavioral changes, Reports change in appetite, Reports confusion, Reports depression, Reports difficulty concentrating, Reports auditory hallucinations, Reports hopelessness, Reports irritability, Reports mood swings, Reports paranoia and Reports hallucinations Mental Status Exam Mental Status Exam Patient Appearance: Fatigued Patient Orientation: Person, Place, Time and Situation Level of Consciousness: Awake Patient Behavior: Guarded, Passive, Suspicious, Anxious, Fearful, Resistive to Care, Avoidant, Distractible, Isolative, Good Eye Contact and Crying Mood Description: Depressed Affect Description: Flat Patient Cognition Impaired: Yes Ability to Follow Directions: Fair Speech Pattern: Impoverished, Spontaneous Speech, Soft-Spoken and Long Pauses Memory Description: Remote Impaired, Immediate Impaired and Episodic Impaired Hallucinations: Auditory Delusions: Being Controlled, Paranoid Ideation and Present Perceptual Disturbances: Depersonalization Thought Process: Illogical, Distracted and Rumination Thought Content: positive for Obsessional Thoughts, positive for Perseveration, positive for Poverty of Content, positive for Thought Blocking and positive for Disorganized Depressive Symptoms: Increased Anxiety, Insomnia, Diff. Making Decisions, Increased Irritability, Difficulty Sleeping, Loss of Int. in Activity, Feelings of Worthlessness, Hopelessness, Isolating-Friends/Family, Unhappiness, Increased Fatigue, Low Self Esteem, Loss of Energy and Difficulty Concentrating Diagnostics Vital Signs (24Hr): Vital Signs - 24 hr 08/20/20 17:32 08/21/20 06:35 Temperature 98.2 F 97.9 F Pulse Rate 110 H 95 Respiratory Rate 18 18 Blood Pressure 128/65 117/65 Pulse Oximetry 95 96 Body Mass Index 42.0 Labs Results: 08/14/20 10:59 06/12/21 13:50 Imaging Radiology Impressions: ITS Impressions KUB X-Ray 07/22/20 17:13 IMPRESSION: Moderate volume of stool scattered in colon. No bowel obstruction. Medications Medications Current Medications Generic Name Dose Route Start Last Admin Trade Name Freq PRN Reason Stop Dose Admin Acetaminophen 650 mg 07/23/20 21:13 08/11/20 12:28 Acetaminophen 325 Mg Tablet PO 650 mg Q6H PRN Administration Headache/Pain Mild Scale (1-3) Al Hydroxide/Mg Hydroxide 30 ml 07/23/20 21:13 Magnesium Hydrox/Alum Hydrox 30 Ml Oral.Susp PO Q6H PRN Heartburn/Nausea Aspirin 81 mg 07/25/20 09:00 08/21/20 08:59 Aspirin Enteric Coated 81 Mg Tablet.Dr PO Not Given DAILY [facility] Atorvastatin Calcium 80 mg 07/23/20 21:00 08/20/20 21:24 Atorvastatin Calcium 80 Mg Tablet PO 80 mg BEDTIME [facility] Administration Clopidogrel Bisulfate 75 mg 07/23/20 17:00 08/21/20 08:59 Clopidogrel Bisulfate 75 Mg Tablet PO Not Given DAILY [facility] Clozapine 25 mg 08/15/20 09:00 08/21/20 09:00 Clozapine 25 Mg Tablet PO Not Given DAILY [facility] Enoxaparin Sodium 40 mg 07/29/20 15:15 08/21/20 14:43 Enoxaparin Sodium 40 Mg/0.4 Ml Syringe SUBCUT Not Given Q24H [facility] Finasteride 5 mg 07/23/20 17:00 08/21/20 09:00 Finasteride 5 Mg Tablet PO Not Given DAILY [facility] Hydroxyzine HCl 25 mg 07/23/20 21:13 08/17/20 03:00 Hydroxyzine Hcl 25 Mg Tablet PO 25 mg BEDTIME PRN Administration Anxiety Lisinopril 2.5 mg 08/18/20 09:00 08/21/20 09:00 Lisinopril 2.5 Mg Tablet PO Not Given DAILY [facility] Protocol Loperamide HCl 2 mg 07/24/20 15:43 07/24/20 15:54 Loperamide Hcl 2 Mg Capsule PO 2 mg Q4H PRN Administration Diarrhea Magnesium Hydroxide 30 ml 07/23/20 21:13 Milk Of Magnesia 30 Ml Oral.Susp PO DAILY PRN Constipation Metformin HCl 500 mg 08/14/20 17:00 08/21/20 08:59 Metformin Hcl 500 Mg Tablet PO Not Given BIDWM [facility] Metoprolol Succinate 75 mg 07/23/20 17:00 08/21/20 09:00 Metoprolol Succinate Er 25 Mg Tab.Er.24h PO Not Given DAILY [facility] Protocol Multi-Ingred Cream/Lotion/Oil/Oint 1 appl 07/24/20 21:00 08/21/20 09:01 Mineral Oil/Petrolatum,White 106 Gm Tube TOPICAL Not Given BID [facility] Patient Own 1 each 08/14/20 10:27 08/14/20 12:06 Medication (Thera PO 1 each Breath Dry Mouth Q4H PRN Administration Lozenge) Dry Mouth Patient Own 1 each 08/14/20 10:30 08/21/20 09:01 Medication (Biotene PO Not Given 15 Ml) BID [facility] Nystatin 1 appl 07/26/20 19:25 08/21/20 09:01 Nystatin Cream 15 Gm Tube TOPICAL Not Given DAILY [facility] Protocol Omeprazole 20 mg 07/24/20 06:30 08/21/20 08:59 Omeprazole 20 Mg Capsule.Dr PO Not Given DAILY@0630 [facility] Ondansetron HCl 4 mg 08/08/20 09:04 08/08/20 09:27 Ondansetron Odt 4 Mg Tab.Rapdis TRANSLINGU 4 mg Q6H PRN Administration Nausea Saliva Substitute 1 spray 08/12/20 15:06 Dry Mouth [place] 30 Ml [place] MUCOUS MEM Q2H PRN [place]outh Tamsulosin HCl 0.4 mg 07/25/20 21:00 08/20/20 21:25 Tamsulosin Hcl 0.4 Mg Capsule PO 0.4 mg BEDTIME [facility] Administration Trazodone HCl 50 mg 07/23/20 21:13 08/17/20 03:00 Trazodone Hcl 50 Mg Tablet PO 50 mg BEDTIME PRN Administration Insomnia Vitamin D 50 mcg 07/23/20 21:00 08/20/20 21:24 Cholecalciferol (Vitamin D3) 25 Mcg Tablet PO 50 mcg BEDTIME [facility] Administration Allergies Allergies Allergy/AdvReac Type Severity Reaction Status Date / Time No Known Allergies Allergy Verified 07/21/20 16:39 Assessment & Plan Assessment & Plan (1) SCOT (acute kidney injury): Status: Acute Code(s): N17.9 - Acute kidney failure, unspecified Assessment and Plan: - Refuses follow up labs today. (2) Peripheral vascular disease: Status: Acute Code(s): I73.9 - Peripheral vascular disease, unspecified (3) HTN (hypertension): Status: Acute Code(s): I10 - Essential (primary) hypertension Assessment and Plan: This is a 65 yo man with schizophrenia with an elevated creat. His last available creat in 2018 was normal. He is obese, has HTN, PVD and DM (on metformin). We are awaiting a UA and I have ordered a renal US. He states that he may have some diff voiding. He was on lisinopril and lasix and has edema in his legs. My impression thus far with incomplete data is that he has CKD -prehaps due to DKD or HTN, or may have some bladder outflow issues. Given his HTN, I suggest resuming his lisinopril to control his BP as creat has not significantly changed off of it. Continue to hold diuretics. We will get a UA to determine if he has proteinuria and other findings and rule out hydronephroiss with an US. If he has proteinuria then further workup will be warranted. (4) Schizophrenia, paranoid, subchronic with acute exacerbation: Status: Acute Code(s): F20.0 - Paranoid schizophrenia Assessment and Plan: Clozaril compliance is inconsistent currently. Will keep dosage at 25 mg to avoid adverse response. Await legal input regarding how to proceed to provide consistent care for pt who is currently psychotic. Continue 0ne to [facility] pt as he will allow. [place] building. Continue to offer items to improve comfort and well being. Greater than 50% of the session was spent on counseling and/or coordination of care Reason for contiued inpatient stay Substantial Risk for: harm to self, inability to function, rapid decompensation and med/psych decompensation
[2020-08-21 18:00] VITALS: RESP 16
[2020-08-22 06:00] VITALS: RESP 20
--- NOTE | 2020-08-22 15:02 | HO.PSYCHPN ---
Subjective Subjective Date of Service: 08/22/20 Reason For Visit: psychosis Subjective Notes: Conditional Voluntary Healthcare Proxy: No Guardianship: Yes (pending by brother) Medical Problems Affecting Mental Status: Yes Interim History: Pt seen by Jesse's monitor today Mary Barnhart. One to one special continues. Tells Mary that he is experiencing frequency of urination and bowel movements. Calm, appears in NAD, responding to internal stimuli, preoccupied. Review of Systems Review of Systems Yes Unobtainable due to mental status Reports behavioral changes and Reports memory loss Psychiatric: Reports abnormal sleep pattern, Reports behavioral changes, Reports change in appetite, Reports depression, Reports difficulty concentrating, Reports irritability, Reports anhedonia, Reports memory loss, Reports mood swings and Reports paranoia Mental Status Exam Mental Status Exam Patient Appearance: Fatigued Patient Orientation: Person Level of Consciousness: Awake Patient Behavior: Appropriate, Guarded, Talkative, Cooperative, Suspicious, Asleep, Anxious, Fearful, Resistive to Care, Avoidant, Fatigued, Distractible, Isolative and Good Eye Contact Mood Description: Suspicious, Withdrawn, Blunted and Flat Affect Description: Flat Patient Cognition Impaired: No Ability to Follow Directions: Fair Speech Pattern: Spontaneous Speech Memory Description: Remote Impaired and Episodic Impaired Hallucinations: Auditory Delusions: Being Controlled, Paranoid Ideation and Present Perceptual Disturbances: Depersonalization and Derealization Thought Process: Illogical and Distracted Thought Content: positive for Perseveration Depressive Symptoms: Insomnia, Increased Irritability, Difficulty Sleeping, Changes in Appetite, Crying Spells and Significant Weight Loss Judgement: Poor Diagnostics Vital Signs (24Hr): Vital Signs - 24 hr 08/21/20 18:00 08/22/20 06:00 Respiratory Rate 16 20 Body Mass Index 42.0 Labs Results: 08/14/20 10:59 08/16/20 13:50 Imaging Radiology Impressions: ITS Impressions KUB X-Ray 07/22/20 17:13 IMPRESSION: Moderate volume of stool scattered in colon. No bowel obstruction. Medications Medications Current Medications Generic Name Dose Route Start Last Admin Trade Name Freq PRN Reason Stop Dose Admin Acetaminophen 650 mg 07/23/20 21:13 08/11/20 12:28 Acetaminophen 325 Mg Tablet PO 650 mg Q6H PRN Administration Headache/Pain Mild Scale (1-3) Al Hydroxide/Mg Hydroxide 30 ml 07/23/20 21:13 Magnesium Hydrox/Alum Hydrox 30 Ml Oral.Susp PO Q6H PRN Heartburn/Nausea Aspirin 81 mg 07/25/20 09:00 08/22/20 09:48 Aspirin Enteric Coated 81 Mg Tablet.Dr PO Not Given DAILY [facility] Atorvastatin Calcium 80 mg 07/23/20 21:00 08/21/20 20:43 Atorvastatin Calcium 80 Mg Tablet PO Not Given BEDTIME [facility] Clopidogrel Bisulfate 75 mg 07/23/20 17:00 08/22/20 09:48 Clopidogrel Bisulfate 75 Mg Tablet PO Not Given DAILY [facility] Clozapine 25 mg 08/15/20 09:00 08/22/20 09:48 Clozapine 25 Mg Tablet PO Not Given DAILY [facility] Enoxaparin Sodium 40 mg 07/29/20 15:15 08/21/20 14:43 Enoxaparin Sodium 40 Mg/0.4 Ml Syringe SUBCUT Not Given Q24H [facility] Finasteride 5 mg 07/23/20 17:00 08/22/20 09:49 Finasteride 5 Mg Tablet PO Not Given DAILY [facility] Hydroxyzine HCl 25 mg 07/23/20 21:13 08/17/20 03:00 Hydroxyzine Hcl 25 Mg Tablet PO 25 mg BEDTIME PRN Administration Anxiety Lisinopril 2.5 mg 08/18/20 09:00 08/22/20 09:54 Lisinopril 2.5 Mg Tablet PO Not Given DAILY [facility] Protocol Loperamide HCl 2 mg 07/24/20 15:43 07/24/20 15:54 Loperamide Hcl 2 Mg Capsule PO 2 mg Q4H PRN Administration Diarrhea Magnesium Hydroxide 30 ml 07/23/20 21:13 Milk Of Magnesia 30 Ml Oral.Susp PO DAILY PRN Constipation Metformin HCl 500 mg 08/14/20 17:00 08/22/20 09:48 Metformin Hcl 500 Mg Tablet PO Not Given BIDWM [facility] Metoprolol Succinate 75 mg 07/23/20 17:00 08/22/20 09:54 Metoprolol Succinate Er 25 Mg Tab.Er.24h PO Not Given DAILY [facility] Protocol Multi-Ingred Cream/Lotion/Oil/Oint 1 appl 07/24/20 21:00 08/22/20 09:54 Mineral Oil/Petrolatum,White 106 Gm Tube TOPICAL Not Given BID [facility] Patient Own 1 each 08/14/20 10:27 08/14/20 12:06 Medication (Thera PO 1 each Breath Dry Mouth Q4H PRN Administration Lozenge) Dry Mouth Patient Own 1 each 08/14/20 10:30 08/22/20 09:55 Medication (Biotene PO Not Given 15 Ml) BID [facility] Nystatin 1 appl 07/26/20 19:25 08/22/20 09:56 Nystatin Cream 15 Gm Tube TOPICAL Not Given DAILY [facility] Protocol Olanzapine 10 mg 08/21/20 21:07 Olanzapine Odt 10 Mg Tab.Rapdis TRANSLINGU BID PRN severe agitation,aggression Omeprazole 20 mg 07/24/20 06:30 08/22/20 09:48 Omeprazole 20 Mg Capsule.Dr PO Not Given DAILY@0630 [facility] Ondansetron HCl 4 mg 08/08/20 09:04 08/08/20 09:27 Ondansetron Odt 4 Mg Tab.Rapdis TRANSLINGU 4 mg Q6H PRN Administration Nausea Saliva Substitute 1 spray 08/12/20 15:06 Dry Mouth [place] 30 Ml [place] MUCOUS MEM Q2H PRN Dry Mouth Tamsulosin HCl 0.4 mg 07/25/20 21:00 08/21/20 20:43 Tamsulosin Hcl 0.4 Mg Capsule PO Not Given BEDTIME [facility] Trazodone HCl 50 mg 07/23/20 21:13 08/17/20 03:00 Trazodone Hcl 50 Mg Tablet PO 50 mg BEDTIME PRN Administration Insomnia Vitamin D 50 mcg 07/23/20 21:00 08/21/20 20:43 Cholecalciferol (Vitamin D3) 25 Mcg Tablet PO Not Given BEDTIME [facility] Allergies Allergies Allergy/AdvReac Type Severity Reaction Status Date / Time No Known Allergies Allergy Verified 07/21/20 16:39 Assessment & Plan Assessment & Plan (1) SCOT (acute kidney injury): Status: Acute Code(s): N17.9 - Acute kidney failure, unspecified Assessment and Plan: - Refuses follow up labs today. (2) Peripheral vascular disease: Status: Acute Code(s): I73.9 - Peripheral vascular disease, unspecified (3) HTN (hypertension): Status: Acute Code(s): I10 - Essential (primary) hypertension Assessment and Plan: This is a 65 yo man with schizophrenia with an elevated creat. His last available creat in 2018 was normal. He is obese, has HTN, PVD and DM (on metformin). We are awaiting a UA and I have ordered a renal US. He states that he may have some diff voiding. He was on lisinopril and lasix and has edema in his legs. My impression thus far with incomplete data is that he has CKD -prehaps due to DKD or HTN, or may have some bladder outflow issues. Given his HTN, I suggest resuming his lisinopril to control his BP as creat has not significantly changed off of it. Continue to hold diuretics. We will get a UA to determine if he has proteinuria and other findings and rule out hydronephroiss with an US. If he has proteinuria then further workup will be warranted. (4) Schizophrenia, paranoid, subchronic with acute exacerbation: Status: Acute Code(s): F20.0 - Paranoid schizophrenia Assessment and Plan: Clozaril compliance is inconsistent currently. Will keep dosage at 25 mg to avoid adverse response. Jesse's ammendment process continues to move forward. Continue 0ne to [facility] pt as he will allow. [place] building. Continue to offer items to improve comfort and well being. UA CS. Pt reported to his monitor that he has urinary frequency. Greater than 50% of the session was spent on counseling and/or coordination of care Reason for contiued inpatient stay Substantial Risk for: harm to self, inability to function, rapid decompensation and med/psych decompensation
[2020-08-22 16:49] VITALS: BP 117/58; PULSE 92; RESP 18; O2SAT 96
[2020-08-23 08:07] LABS: MANUAL DIFF FLAG NO
[2020-08-23 08:13] LABS: Basophils Percent Auto 0.3 % (0-2); Eosinophils Absolute Auto 0.2 X10*3/uL (0.0-0.4); Eosinophils Percent Auto 1.9 % (0-4); Hemoglobin 9.9 g/dl (14.0-18.0); Imm Gran Abs Auto 0.03 X10*3/uL (0.00-0.03); Imm Gran Pct Auto 0.3 % (0.0-0.4); Lymphocytes Absolute Auto 1.6 X10*3/uL (1.2-4.9); Lymphocytes Percent Auto 17.7 % (20-40); Mean Corpuscular HGB Conc 31.9 g/dl (31.0-36.0); Mean Corpuscular Hemoglobin 26.1 pg (27.0-33.0); Mean Corpuscular Volume 81.6 fL (80-98); Monocytes Absolute Auto 0.9 X10*3/uL (0.1-1.2); Monocytes Percent Auto 10.1 % (2-11); Neutrophils Absolute Auto 6.2 X10*3/uL (2.0-8.3); Neutrophils Percent Auto 69.7 % (45-73); Platelet Count 219 X10*3/uL (160-400); Red Cell Distribution Width 16.8 % (11.0-16.0); White Blood Count 8.9 X10*3/uL (4.8-10.8)
[2020-08-23 08:47] VITALS: BP 114/52; PULSE 83
[2020-08-23 08:48] VITALS: BP 114/52; PULSE 83
[2020-08-23 08:57] LABS: Alanine Aminotransferase 28 U/L (0-40); Albumin Level 3.3 g/dL (3.5-5.0); Alkaline Phosphatase 58 U/L (39-117); Anion Gap 12 (12-20); Aspartate Amino Transferase 22 U/L (5-37); Bilirubin Total 0.9 mg/dL (0.0-1.0); Blood Urea Nitrogen 14 mg/dL (9-16); Calcium 8.8 mg/dL (8.4-10.2); Carbon Dioxide 31 mmol/L (22-29); Chloride 100 mmol/L (96-108); Creatinine Clr Calc Pharmacy 156.1; Estimated Glomerular Filt Rate > 60; Glucose Random 118 mg/dL (60-115); Potassium 3.6 mmol/L (3.3-5.1); Sodium 139 mmol/L (135-145); Total Protein 5.5 g/dL (6.5-8.0)
--- NOTE | 2020-08-23 10:14 | HO.PSYCHPN ---
Subjective Subjective Date of Service: 08/23/20 Reason For Visit: psychosis Subjective Notes: Conditional Voluntary Guardianship: Yes (?pending ammendment for im meds as pt refuses) Interim History: co stomach aches and constipation today Medication Compliance: No Attending Groups: No Review of Systems Review of Systems reports constipation- refuses care, poor po intake ? vs dehndration and constipation Mental Status Exam Mental Status Exam Narrative: large man in clothing lying in recliner chair multiple movements of limbs cw TD Patient Appearance: Disheveled and Unkempt Patient Orientation: Person Level of Consciousness: Awake Patient Behavior: Passive Behavior Comments: actually makes eye contact here and there Mood Description: Apathetic and Blunted Affect Description: Flat Ability to Follow Directions: Poor Speech Pattern: Impoverished Thought Process: Slowed Thinking Thought Content: positive for Poverty of Content Abnormal Motor Activity Signs and Symptoms: Tic, Tremors and Chorea Judgement: Poor Diagnostics Vital Signs (24Hr): Vital Signs - 24 hr 08/22/20 16:49 08/23/20 08:47 08/23/20 08:48 Pulse Rate 92 83 83 Respiratory Rate 18 Blood Pressure 117/58 L 114/52 L 114/52 L Pulse Oximetry 96 Body Mass Index 42.0 Labs Results: 08/23/20 07:57 08/23/20 07:57 Labs: Laboratory Results - last 48 hr 08/23/20 08/23/20 07:57 07:57 WBC 8.9 RBC 3.80 L Hgb 9.9 L Hct 31.0 L MCV 81.6 MCH 26.1 L MCHC 31.9 RDW 16.8 H Plt Count 219 MPV 10.0 Immature Gran % (Auto) 0.3 Neut % (Auto) 69.7 Lymph % (Auto) 17.7 L [place] % (Auto) 10.1 Eos % (Auto) 1.9 Baso % (Auto) 0.3 Lymph # (Auto) 1.6 [place] # (Auto) 0.9 Eos # (Auto) 0.2 Baso # (Auto) 0.0 Abs Immat Gran (auto) 0.03 Absolute Neuts (auto) 6.2 Absolute Nucleated RBC 0.000 Nucleated RBC % (auto) 0.0 Sodium 139 Potassium 3.6 Chloride 100 Carbon Dioxide 31 H Anion Gap 12 BUN 14 D Creatinine 0.88 Estim Creat Clear Calc 156.1 Estimated GFR > 60 Random Glucose 118 H Calcium 8.8 Total Bilirubin 0.9 AST 22 ALT 28 Alkaline Phosphatase 58 Total Protein 5.5 L Albumin 3.3 L not dehydrdated, no elevation of wbc ANEMIC Imaging Radiology Impressions: ITS Impressions KUB X-Ray 07/22/20 17:13 IMPRESSION: Moderate volume of stool scattered in colon. No bowel obstruction. clearly abd pain/constipation ? not new Medications Medications Current Medications Generic Name Dose Route Start Last Admin Trade Name Freq PRN Reason Stop Dose Admin Acetaminophen 650 mg 07/23/20 21:13 08/11/20 12:28 Acetaminophen 325 Mg Tablet PO 650 mg Q6H PRN Administration Headache/Pain Mild Scale (1-3) Al Hydroxide/Mg Hydroxide 30 ml 07/23/20 21:13 Magnesium Hydrox/Alum Hydrox 30 Ml Oral.Susp PO Q6H PRN Heartburn/Nausea Aspirin 81 mg 07/25/20 09:00 08/23/20 08:49 Aspirin Enteric Coated 81 Mg Tablet.Dr PO Not Given DAILY [facility] Atorvastatin Calcium 80 mg 07/23/20 21:00 08/22/20 20:52 Atorvastatin Calcium 80 Mg Tablet PO Not Given BEDTIME [facility] Clopidogrel Bisulfate 75 mg 07/23/20 17:00 08/23/20 08:59 Clopidogrel Bisulfate 75 Mg Tablet PO Not Given DAILY [facility] Clozapine 25 mg 08/15/20 09:00 08/23/20 09:00 Clozapine 25 Mg Tablet PO Not Given DAILY [facility] Enoxaparin Sodium 40 mg 07/29/20 15:15 08/22/20 15:48 Enoxaparin Sodium 40 Mg/0.4 Ml Syringe SUBCUT Not Given Q24H [facility] Finasteride 5 mg 07/23/20 17:00 08/23/20 08:48 Finasteride 5 Mg Tablet PO Not Given DAILY [facility] Hydroxyzine HCl 25 mg 07/23/20 21:13 08/17/20 03:00 Hydroxyzine Hcl 25 Mg Tablet PO 25 mg BEDTIME PRN Administration Anxiety Lisinopril 2.5 mg 08/18/20 09:00 08/23/20 08:47 Lisinopril 2.5 Mg Tablet PO Not Given DAILY [facility] Protocol Loperamide HCl 2 mg 07/24/20 15:43 07/24/20 15:54 Loperamide Hcl 2 Mg Capsule PO 2 mg Q4H PRN Administration Diarrhea Magnesium Hydroxide 30 ml 07/23/20 21:13 Milk Of Magnesia 30 Ml Oral.Susp PO DAILY PRN Constipation Metformin HCl 500 mg 08/14/20 17:00 08/23/20 08:59 Metformin Hcl 500 Mg Tablet PO Not Given BIDWM [facility] Metoprolol Succinate 75 mg 07/23/20 17:00 08/23/20 08:48 Metoprolol Succinate Er 25 Mg Tab.Er.24h PO Not Given DAILY [facility] Protocol Multi-Ingred Cream/Lotion/Oil/Oint 1 appl 07/24/20 21:00 08/23/20 08:48 Mineral Oil/Petrolatum,White 106 Gm Tube TOPICAL Not Given BID [facility] Patient Own 1 each 08/14/20 10:27 08/14/20 12:06 Medication (Thera PO 1 each Breath Dry Mouth Q4H PRN Administration Lozenge) Dry Mouth Patient Own 1 each 08/14/20 10:30 08/23/20 08:49 Medication (Biotene PO Not Given 15 Ml) BID [facility] Nystatin 1 appl 07/26/20 19:25 08/23/20 08:49 Nystatin Cream 15 Gm Tube TOPICAL Not Given DAILY [facility] Protocol Olanzapine 10 mg 08/21/20 21:07 Olanzapine Odt 10 Mg Tab.Rapdis TRANSLINGU BID PRN severe agitation,aggression Omeprazole 20 mg 07/24/20 06:30 08/23/20 08:47 Omeprazole 20 Mg Capsule.Dr PO Not Given DAILY@0630 [facility] Ondansetron HCl 4 mg 08/08/20 09:04 08/08/20 09:27 Ondansetron Odt 4 Mg Tab.Rapdis TRANSLINGU 4 mg Q6H PRN Administration Nausea Saliva Substitute 1 spray 08/12/20 15:06 Dry Mouth [place] 30 Ml [place] MUCOUS MEM Q2H PRN Dry Mouth Tamsulosin HCl 0.4 mg 07/25/20 21:00 08/22/20 20:53 Tamsulosin Hcl 0.4 Mg Capsule PO Not Given BEDTIME [facility] Trazodone HCl 50 mg 07/23/20 21:13 08/17/20 03:00 Trazodone Hcl 50 Mg Tablet PO 50 mg BEDTIME PRN Administration Insomnia Vitamin D 50 mcg 07/23/20 21:00 08/22/20 20:53 Cholecalciferol (Vitamin D3) 25 Mcg Tablet PO Not Given BEDTIME [facility] Allergies Allergies Allergy/AdvReac Type Severity Reaction Status Date / Time No Known Allergies Allergy Verified 07/21/20 16:39 Assessment & Plan Assessment & Plan (1) SCOT (acute kidney injury): Status: Acute Code(s): N17.9 - Acute kidney failure, unspecified Assessment and Plan: got labs today appears bun/cr better (2) Peripheral vascular disease: Status: Acute Code(s): I73.9 - Peripheral vascular disease, unspecified (3) HTN (hypertension): Status: Acute Code(s): I10 - Essential (primary) hypertension Assessment and Plan: BP is low (4) Schizophrenia, paranoid, subchronic with acute exacerbation: Status: Acute Code(s): F20.0 - Paranoid schizophrenia Assessment and Plan: Clozaril compliance is inconsistent currently. Will keep dosage at 25 mg to avoid adverse response. Jesse's ammendment process continues to move forward. Continue 0ne to [facility] pt as he will allow. [place] building. Continue to offer items to improve comfort and well being. doesn't look like he has given a urine . Greater than 50% of the session was spent on counseling and/or coordination of care Reason for contiued inpatient stay Substantial Risk for: inability to function, rapid decompensation and med/psych decompensation
[2020-08-23 18:00] VITALS: BP 137/63; PULSE 97; RESP 16
--- NOTE | 2020-08-24 12:35 | HO.PSYCHPN ---
Subjective Subjective Date of Service: 08/24/20 Reason For Visit: psychosis Subjective Notes: [place] Order (pending ammendment for injectable antipsychotic) Medical Problems Affecting Mental Status: No Interim History: Pt reports he doesnt want medication because they cause him to be sedated, pointed out his current situation -and why it might be beneficial to have a life outside the hospital Medication Compliance: Intermittent (currently refusing all meds) Side effects from medications: Yes (he says sedation has been be a problem , likely with clozapine it can be) Attending Groups: No Review of Systems he co constipation but is not eatign much Mental Status Exam Mental Status Exam Narrative: lyng in reclining chair , twists around at times, various facial and limb movements consistent with TD Patient Appearance: Unkempt and Bizarre (postures) Patient Orientation: Person, Place and Situation Level of Consciousness: Awake Patient Behavior: Passive, Restless, Resistive to Care and Good Eye Contact Mood Description: Apathetic Affect Description: Constricted Ability to Follow Directions: Poor Speech Pattern: Impoverished Hallucinations: None Thought Process: Slowed Thinking Thought Content: positive for [place], positive for Poverty of Content and positive for Thought Blocking Abnormal Motor Activity Signs and Symptoms: Psychomotor Retardation and Chorea Judgement: Poor Diagnostics Vital Signs (24Hr): Vital Signs - 24 hr 08/23/20 18:00 Pulse Rate 97 Respiratory Rate 16 Blood Pressure 137/63 Body Mass Index 42.0 Labs Results: 08/23/20 07:57 08/23/20 07:57 Labs: Laboratory Results - last 48 hr 08/23/20 08/23/20 07:57 07:57 WBC 8.9 RBC 3.80 L Hgb 9.9 L Hct 31.0 L MCV 81.6 MCH 26.1 L MCHC 31.9 RDW 16.8 H Plt Count 219 MPV 10.0 Immature Gran % (Auto) 0.3 Neut % (Auto) 69.7 Lymph % (Auto) 17.7 L [place] % (Auto) 10.1 Eos % (Auto) 1.9 Baso % (Auto) 0.3 Lymph # (Auto) 1.6 [place] # (Auto) 0.9 Eos # (Auto) 0.2 Baso # (Auto) 0.0 Abs Immat Gran (auto) 0.03 Absolute Neuts (auto) 6.2 Absolute Nucleated RBC 0.000 Nucleated RBC % (auto) 0.0 Sodium 139 Potassium 3.6 Chloride 100 Carbon Dioxide 31 H Anion Gap 12 BUN 14 D Creatinine 0.88 Estim Creat Clear Calc 156.1 Estimated GFR > 60 Random Glucose 118 H Calcium 8.8 Total Bilirubin 0.9 AST 22 ALT 28 Alkaline Phosphatase 58 Total Protein 5.5 L Albumin 3.3 L Imaging Radiology Impressions: ITS Impressions KUB X-Ray 07/22/20 17:13 IMPRESSION: Moderate volume of stool scattered in colon. No bowel obstruction. Medications Medications Current Medications Generic Name Dose Route Start Last Admin Trade Name Freq PRN Reason Stop Dose Admin Acetaminophen 650 mg 07/23/20 21:13 08/11/20 12:28 Acetaminophen 325 Mg Tablet PO 650 mg Q6H PRN Administration Headache/Pain Mild Scale (1-3) Al Hydroxide/Mg Hydroxide 30 ml 07/23/20 21:13 Magnesium Hydrox/Alum Hydrox 30 Ml Oral.Susp PO Q6H PRN Heartburn/Nausea Aspirin 81 mg 07/25/20 09:00 08/24/20 11:24 Aspirin Enteric Coated 81 Mg Tablet.Dr PO Not Given DAILY [facility] Atorvastatin Calcium 80 mg 07/23/20 21:00 08/23/20 21:52 Atorvastatin Calcium 80 Mg Tablet PO Not Given BEDTIME [facility] Clopidogrel Bisulfate 75 mg 07/23/20 17:00 08/24/20 11:24 Clopidogrel Bisulfate 75 Mg Tablet PO Not Given DAILY [facility] Clozapine 25 mg 08/15/20 09:00 08/24/20 11:24 Clozapine 25 Mg Tablet PO Not Given DAILY [facility] Enoxaparin Sodium 40 mg 07/29/20 15:15 08/23/20 16:27 Enoxaparin Sodium 40 Mg/0.4 Ml Syringe SUBCUT Not Given Q24H [facility] Finasteride 5 mg 07/23/20 17:00 08/24/20 11:24 Finasteride 5 Mg Tablet PO Not Given DAILY [facility] Hydroxyzine HCl 25 mg 07/23/20 21:13 08/17/20 03:00 Hydroxyzine Hcl 25 Mg Tablet PO 25 mg BEDTIME PRN Administration Anxiety Lisinopril 2.5 mg 08/18/20 09:00 08/24/20 11:24 Lisinopril 2.5 Mg Tablet PO Not Given DAILY [facility] Protocol Loperamide HCl 2 mg 07/24/20 15:43 07/24/20 15:54 Loperamide Hcl 2 Mg Capsule PO 2 mg Q4H PRN Administration Diarrhea Magnesium Hydroxide 30 ml 07/23/20 21:13 Milk Of Magnesia 30 Ml Oral.Susp PO DAILY PRN Constipation Metformin HCl 500 mg 08/14/20 17:00 08/24/20 11:23 Metformin Hcl 500 Mg Tablet PO Not Given BIDWM [facility] Metoprolol Succinate 75 mg 07/23/20 17:00 08/24/20 11:24 Metoprolol Succinate Er 25 Mg Tab.Er.24h PO Not Given DAILY [facility] Protocol Multi-Ingred Cream/Lotion/Oil/Oint 1 appl 07/24/20 21:00 08/24/20 11:24 Mineral Oil/Petrolatum,White 106 Gm Tube TOPICAL Not Given BID [facility] Patient Own 1 each 08/14/20 10:27 08/14/20 12:06 Medication (Thera PO 1 each Breath Dry Mouth Q4H PRN Administration Lozenge) Dry Mouth Patient Own 1 each 08/14/20 10:30 08/24/20 11:25 Medication (Biotene PO Not Given 15 Ml) BID [facility] Nystatin 1 appl 07/26/20 19:25 08/24/20 11:25 Nystatin Cream 15 Gm Tube TOPICAL Not Given DAILY [facility] Protocol Olanzapine 10 mg 08/21/20 21:07 Olanzapine Odt 10 Mg Tab.Rapdis TRANSLINGU BID PRN severe agitation,aggression Omeprazole 20 mg 07/24/20 06:30 08/24/20 11:23 Omeprazole 20 Mg Capsule.Dr PO Not Given DAILY@0630 [facility] Ondansetron HCl 4 mg 08/08/20 09:04 08/08/20 09:27 Ondansetron Odt 4 Mg Tab.Rapdis TRANSLINGU 4 mg Q6H PRN Administration Nausea Saliva Substitute 1 spray 08/12/20 15:06 Dry Mouth [place] 30 Ml [place] MUCOUS MEM Q2H PRN Dry Mouth Tamsulosin HCl 0.4 mg 07/25/20 21:00 08/23/20 22:04 Tamsulosin Hcl 0.4 Mg Capsule PO Not Given BEDTIME [facility] Trazodone HCl 50 mg 07/23/20 21:13 08/17/20 03:00 Trazodone Hcl 50 Mg Tablet PO 50 mg BEDTIME PRN Administration Insomnia Vitamin D 50 mcg 07/23/20 21:00 08/23/20 21:52 Cholecalciferol (Vitamin D3) 25 Mcg Tablet PO Not Given BEDTIME [facility] Allergies Allergies Allergy/AdvReac Type Severity Reaction Status Date / Time No Known Allergies Allergy Verified 07/21/20 16:39 Assessment & Plan Assessment & Plan (1) SCOT (acute kidney injury): Status: Acute Code(s): N17.9 - Acute kidney failure, unspecified Assessment and Plan: got labs today appears bun/cr better quite anemic (2) Peripheral vascular disease: Status: Acute Code(s): I73.9 - Peripheral vascular disease, unspecified (3) HTN (hypertension): Status: Acute Code(s): I10 - Essential (primary) hypertension Assessment and Plan: BP is low (4) Schizophrenia, paranoid, subchronic with acute exacerbation: Status: Acute Code(s): F20.0 - Paranoid schizophrenia Assessment and Plan: Clozaril compliance is inconsistent currently. Will keep dosage at 25 mg to avoid adverse response. Jesse's ammendment process continues to move forward. Continue 0ne to [facility] pt as he will allow. [employer] building. Continue to offer items to improve comfort and well being. doesn't look like he has given a urine . Greater than 50% of the session was spent on counseling and/or coordination of care Reason for contiued inpatient stay Substantial Risk for: inability to function, rapid decompensation and med/psych decompensation
[2020-08-24 18:00] VITALS: BP 128/58; PULSE 99; RESP 16; O2SAT 96
[2020-08-25 06:00] VITALS: BP 124/59; PULSE 81; RESP 16; O2SAT 97
--- NOTE | 2020-08-25 13:23 | HO.PSYCHPN ---
Subjective Subjective Date of Service: 08/25/20 Reason For Visit: psychosis Subjective Notes: Conditional Voluntary Healthcare Proxy: No Guardianship: No Medical Problems Affecting Mental Status: Yes Interim History: Pt active today, spending time jogging up and down the [place]. Appears to be distracted, responding to internal stimuli and responsive to direct questions without much dialogue. CBC continues to decline. RBC 3.8, HGB 9.[address] Fields will see pt today to review. Medication Compliance: No Side effects from medications: No Attending Groups: No Review of Systems Reports behavioral changes and Reports confusion Psychiatric: Reports abnormal sleep pattern, Reports anxiety, Reports behavioral changes, Reports change in appetite, Reports confusion, Reports depression, Reports difficulty concentrating, Reports auditory hallucinations, Reports hopelessness, Reports irritability, Reports anhedonia, Reports mood swings and Reports paranoia Mental Status Exam Mental Status Exam Patient Appearance: Disheveled Patient Orientation: Person Level of Consciousness: Awake and Alert Patient Behavior: Guarded, Suspicious, Restless, Distractible and Poor Eye Contact Mood Description: Suspicious, Withdrawn and Constricted Affect Description: Suspicious, Withdrawn and Constricted Patient Cognition Impaired: Yes Ability to Follow Directions: Fair Speech Pattern: Impoverished, Difficulty Finding Words, Spontaneous Speech and Soft-Spoken Memory Description: Remote Impaired Hallucinations: Auditory Delusions: Being Controlled, Paranoid Ideation and Present Thought Process: Illogical, Distracted and Rumination Thought Content: positive for [place], positive for Perseveration, positive for Poverty of Content and positive for Disorganized Depressive Symptoms: Insomnia, Difficulty Sleeping, Changes in Appetite, Increased Fatigue, Loss of Energy and Difficulty Concentrating Abnormal Motor Activity Signs and Symptoms: Agitation, Hyperactivity and Restlessness Judgement: Poor Diagnostics Vital Signs (24Hr): Vital Signs - 24 hr 08/24/20 18:00 08/25/20 06:00 Pulse Rate 99 81 Respiratory Rate 16 16 Blood Pressure 128/58 L 124/59 L Pulse Oximetry 96 97 Body Mass Index 42.0 Labs Results: 08/23/20 07:57 08/23/20 07:57 Imaging Radiology Impressions: ITS Impressions KUB X-Ray 07/22/20 17:13 IMPRESSION: Moderate volume of stool scattered in colon. No bowel obstruction. Medications Medications Current Medications Generic Name Dose Route Start Last Admin Trade Name Freq PRN Reason Stop Dose Admin Acetaminophen 650 mg 07/23/20 21:13 06//21 12:28 Acetaminophen 325 Mg Tablet PO 650 mg Q6H PRN Administration Headache/Pain Mild Scale (1-3) Al Hydroxide/Mg Hydroxide 30 ml 07/23/20 21:13 Magnesium Hydrox/Alum Hydrox 30 Ml Oral.Susp PO Q6H PRN Heartburn/Nausea Aspirin 81 mg 07/25/20 09:00 08/25/20 09:41 Aspirin Enteric Coated 81 Mg Tablet.Dr PO Not Given DAILY [facility] Atorvastatin Calcium 80 mg 07/23/20 21:00 08/24/20 22:11 Atorvastatin Calcium 80 Mg Tablet PO Not Given BEDTIME [facility] Clopidogrel Bisulfate 75 mg 07/23/20 17:00 08/25/20 09:41 Clopidogrel Bisulfate 75 Mg Tablet PO Not Given DAILY [facility] Clozapine 25 mg 08/15/20 09:00 08/25/20 09:41 Clozapine 25 Mg Tablet PO Not Given DAILY [facility] Enoxaparin Sodium 40 mg 07/29/20 15:15 08/24/20 16:22 Enoxaparin Sodium 40 Mg/0.4 Ml Syringe SUBCUT Not Given Q24H [facility] Finasteride 5 mg 07/23/20 17:00 08/25/20 09:42 Finasteride 5 Mg Tablet PO Not Given DAILY [facility] Hydroxyzine HCl 25 mg 07/23/20 21:13 08/17/20 03:00 Hydroxyzine Hcl 25 Mg Tablet PO 25 mg BEDTIME PRN Administration Anxiety Lisinopril 2.5 mg 08/18/20 09:00 08/25/20 09:42 Lisinopril 2.5 Mg Tablet PO Not Given DAILY [facility] Protocol Loperamide HCl 2 mg 07/24/20 15:43 07/24/20 15:54 Loperamide Hcl 2 Mg Capsule PO 2 mg Q4H PRN Administration Diarrhea Magnesium Hydroxide 30 ml 07/23/20 21:13 Milk Of Magnesia 30 Ml Oral.Susp PO DAILY PRN Constipation Metformin HCl 500 mg 08/14/20 17:00 08/25/20 09:41 Metformin Hcl 500 Mg Tablet PO Not Given BIDWM [facility] Metoprolol Succinate 75 mg 07/23/20 17:00 08/25/20 09:42 Metoprolol Succinate Er 25 Mg Tab.Er.24h PO Not Given DAILY [facility] Protocol Multi-Ingred Cream/Lotion/Oil/Oint 1 appl 07/24/20 21:00 08/25/20 09:42 Mineral Oil/Petrolatum,White 106 Gm Tube TOPICAL Not Given BID [facility] Patient Own 1 each 08/14/20 10:27 08/14/20 12:06 Medication (Thera PO 1 each Breath Dry Mouth Q4H PRN Administration Lozenge) Dry Mouth Patient Own 1 each 08/14/20 10:30 08/25/20 09:42 Medication (Biotene PO Not Given 15 Ml) BID [facility] Nystatin 1 appl 07/26/20 19:25 08/25/20 09:42 Nystatin Cream 15 Gm Tube TOPICAL Not Given DAILY [facility] Protocol Olanzapine 10 mg 08/21/20 21:07 Olanzapine Odt 10 Mg Tab.Rapdis TRANSLINGU BID PRN severe agitation,aggression Omeprazole 20 mg 07/24/20 06:30 08/25/20 09:41 Omeprazole 20 Mg Capsule.Dr PO Not Given DAILY@0630 [facility] Ondansetron HCl 4 mg 08/08/20 09:04 08/08/20 09:27 Ondansetron Odt 4 Mg Tab.Rapdis TRANSLINGU 4 mg Q6H PRN Administration Nausea Saliva Substitute 1 spray 08/12/20 15:06 Dry Mouth [place] 30 Ml [place] MUCOUS MEM Q2H PRN Dry Mouth Tamsulosin HCl 0.4 mg 07/25/20 21:00 08/24/20 22:12 Tamsulosin Hcl 0.4 Mg Capsule PO Not Given BEDTIME [facility] Trazodone HCl 50 mg 07/23/20 21:13 08/17/20 03:00 Trazodone Hcl 50 Mg Tablet PO 50 mg BEDTIME PRN Administration Insomnia Vitamin D 50 mcg 07/23/20 21:00 08/24/20 22:11 Cholecalciferol (Vitamin D3) 25 Mcg Tablet PO Not Given BEDTIME [facility] Allergies Allergies Allergy/AdvReac Type Severity Reaction Status Date / Time No Known Allergies Allergy Verified 07/21/20 16:39 Assessment & Plan Assessment & Plan (1) SCOT (acute kidney injury): Status: Acute Code(s): N17.9 - Acute kidney failure, unspecified Assessment and Plan: appears bun/cr better quite anemic (2) Peripheral vascular disease: Status: Acute Code(s): I73.9 - Peripheral vascular disease, unspecified (3) HTN (hypertension): Status: Acute Code(s): I10 - Essential (primary) hypertension Assessment and Plan: BP is low (4) Schizophrenia, paranoid, subchronic with acute exacerbation: Status: Acute Code(s): F20.0 - Paranoid schizophrenia Assessment and Plan: Clozaril compliance is inconsistent currently. Will keep dosage at 25 mg to avoid adverse response. Jesse's ammendment process continues to move forward. Continue 0ne to [facility] pt as he will allow. [employer] building. Continue to offer items to improve comfort and well being. will not give a urine sample . Greater than 50% of the session was spent on counseling and/or coordination of care Reason for contiued inpatient stay Substantial Risk for: harm to self, harm to others, inability to function, rapid decompensation and med/psych decompensation
[2020-08-25 18:00] VITALS: BP 117/55; PULSE 96; RESP 16
[2020-08-26 11:01] VITALS: BP 115/60; PULSE 76; RESP 16; O2SAT 97
--- NOTE | 2020-08-26 13:27 | P.PNPSI_ITS ---
Subjective Subjective Date of Service: 08/26/20 Reason For Visit: psychosis Subjective Notes: Conditional Voluntary Healthcare Proxy: No Guardianship: No Medical Problems Affecting Mental Status: Yes Interim History: Dr. Fields consulting regarding anemia. Pt continues to decline most care and treatment. Visable in the recliner in the [place]a. Angst with his room, believing others to be in there causing discomfort Medication Compliance: No Side effects from medications: No Attending Groups: No Review of Systems Review of Systems Yes Unobtainable due to mental status Reports behavioral changes and Reports confusion Psychiatric: Reports abnormal sleep pattern, Reports anxiety, Reports behavioral changes, Reports change in appetite, Reports confusion, Reports depression, Reports difficulty concentrating, Reports auditory hallucinations, Reports hopelessness, Reports irritability, Reports anhedonia, Reports mood swings, Reports paranoia and Reports hallucinations Mental Status Exam Mental Status Exam Patient Appearance: Disheveled Patient Orientation: Person and Place Level of Consciousness: Awake Patient Behavior: Guarded, Passive, Suspicious, Restless (at times), Anxious, Fearful, Resistive to Care, Avoidant, Fatigued, Distractible, Isolative, Pacing (at times, running) and Poor Eye Contact Mood Description: Constricted Affect Description: Constricted Patient Cognition Impaired: Yes Ability to Follow Directions: Fair Speech Pattern: Perseverating, Impoverished, Spontaneous Speech and Soft-Spoken Memory Description: Remote Impaired and Episodic Impaired Hallucinations: Auditory Delusions: Being Controlled, Paranoid Ideation and Present Perceptual Disturbances: Derealization Thought Process: Illogical, Distracted and Rumination Thought Content: positive for [place], positive for Thought Blocking and positive for Tangential Depressive Symptoms: Increased Anxiety, Insomnia, Increased Irritability, Difficulty Sleeping, Changes in Appetite, Significant Weight Loss, Loss of Int. in Activity, Hopelessness, Isolating-Friends/Family, Unhappiness, Increased Fatigue and Difficulty Concentrating Abnormal Motor Activity Signs and Symptoms: Restlessness Judgement: Poor Diagnostics Vital Signs (24Hr): Vital Signs - 24 hr 08/25/20 18:00 08/26/20 11:01 Pulse Rate 96 76 Respiratory Rate 16 16 Blood Pressure 117/55 L 115/60 Pulse Oximetry 97 Body Mass Index 42.0 Labs Results: 08/26/20 17:08 08/23/20 07:57 Imaging Radiology Impressions: ITS Impressions KUB X-Ray 07/22/20 17:13 IMPRESSION: Moderate volume of stool scattered in colon. No bowel obstruction. Medications Medications Current Medications Generic Name Dose Route Start Last Admin Trade Name Freq PRN Reason Stop Dose Admin Acetaminophen 650 mg 07/23/20 21:13 08/11/20 12:28 Acetaminophen 325 Mg Tablet PO 650 mg Q6H PRN Administration Headache/Pain Mild Scale (1-3) Al Hydroxide/Mg Hydroxide 30 ml 07/23/20 21:13 Magnesium Hydrox/Alum Hydrox 30 Ml Oral.Susp PO Q6H PRN Heartburn/Nausea Aspirin 81 mg 07/25/20 09:00 08/26/20 09:01 Aspirin Enteric Coated 81 Mg Tablet.Dr PO Not Given DAILY [facility] Atorvastatin Calcium 80 mg 07/23/20 21:00 08/25/20 21:00 Atorvastatin Calcium 80 Mg Tablet PO Not Given BEDTIME [facility] Clopidogrel Bisulfate 75 mg 07/23/20 17:00 08/26/20 09:01 Clopidogrel Bisulfate 75 Mg Tablet PO Not Given DAILY [facility] Clozapine 25 mg 08/15/20 09:00 08/26/20 09:01 Clozapine 25 Mg Tablet PO Not Given DAILY [facility] Enoxaparin Sodium 40 mg 07/29/20 15:15 08/25/20 14:02 Enoxaparin Sodium 40 Mg/0.4 Ml Syringe SUBCUT Not Given Q24H [facility] Finasteride 5 mg 07/23/20 17:00 08/26/20 09:01 Finasteride 5 Mg Tablet PO Not Given DAILY [facility] Hydroxyzine HCl 25 mg 07/23/20 21:13 08/17/20 03:00 Hydroxyzine Hcl 25 Mg Tablet PO 25 mg BEDTIME PRN Administration Anxiety Lisinopril 2.5 mg 08/18/20 09:00 08/26/20 09:01 Lisinopril 2.5 Mg Tablet PO Not Given DAILY [facility] Protocol Loperamide HCl 2 mg 07/24/20 15:43 07/24/20 15:54 Loperamide Hcl 2 Mg Capsule PO 2 mg Q4H PRN Administration Diarrhea Magnesium Hydroxide 30 ml 07/23/20 21:13 Milk Of Magnesia 30 Ml Oral.Susp PO DAILY PRN Constipation Metformin HCl 500 mg 08/14/20 17:00 08/26/20 09:01 Metformin Hcl 500 Mg Tablet PO Not Given BIDWM [facility] Metoprolol Succinate 75 mg 07/23/20 17:00 08/26/20 09:02 Metoprolol Succinate Er 25 Mg Tab.Er.24h PO Not Given DAILY [facility] Protocol Multi-Ingred Cream/Lotion/Oil/Oint 1 appl 07/24/20 21:00 08/26/20 09:02 Mineral Oil/Petrolatum,White 106 Gm Tube TOPICAL Not Given BID [facility] Patient Own 1 each 08/14/20 10:27 08/14/20 12:06 Medication (Thera PO 1 each Breath Dry Mouth Q4H PRN Administration Lozenge) Dry Mouth Patient Own 1 each 08/14/20 10:30 08/26/20 09:02 Medication (Biotene PO Not Given 15 Ml) BID [facility] Nystatin 1 appl 07/26/20 19:25 08/26/20 09:02 Nystatin Cream 15 Gm Tube TOPICAL Not Given DAILY [facility] Protocol Olanzapine 10 mg 08/21/20 21:07 Olanzapine Odt 10 Mg Tab.Rapdis TRANSLINGU BID PRN severe agitation,aggression Omeprazole 20 mg 07/24/20 06:30 08/26/20 09:01 Omeprazole 20 Mg Capsule.Dr PO Not Given DAILY@0630 [facility] Ondansetron HCl 4 mg 08/08/20 09:04 08/08/20 09:27 Ondansetron Odt 4 Mg Tab.Rapdis TRANSLINGU 4 mg Q6H PRN Administration Nausea Saliva Substitute 1 spray 08/12/20 15:06 Dry Mouth [place] 30 Ml [place] MUCOUS MEM Q2H PRN Dry Mouth Tamsulosin HCl 0.4 mg 07/25/20 21:00 08/25/20 21:42 Tamsulosin Hcl 0.4 Mg Capsule PO Not Given BEDTIME [facility] Trazodone HCl 50 mg 07/23/20 21:13 08/17/20 03:00 Trazodone Hcl 50 Mg Tablet PO 50 mg BEDTIME PRN Administration Insomnia Vitamin D 50 mcg 07/23/20 21:00 08/25/20 21:00 Cholecalciferol (Vitamin D3) 25 Mcg Tablet PO Not Given BEDTIME [facility] Allergies Allergies Allergy/AdvReac Type Severity Reaction Status Date / Time No Known Allergies Allergy Verified 07/21/20 16:39 Assessment & Plan Assessment & Plan (1) Schizophrenia, paranoid, subchronic with acute exacerbation: Status: Acute Code(s): F20.0 - Paranoid schizophrenia Assessment and Plan: Clozaril compliance is inconsistent currently. Will keep dosage at 25 mg to av oid adverse response. Jesse's ammendment process continues to move forward. Continue 0ne to [facility] pt as he will allow. [employer] building. Continue to offer items to improve comfort and well being. will not give a urine sample [facility] reports he has talked with them about accepting other medications instead of Clozaril. Declines with TW. . Greater than 50% of the session was spent on counseling and/or coordination of care Informed Consent: does not understand and further education needed Reason for contiued inpatient stay Substantial Risk for: harm to self, inability to function and med/psych decompensation
[2020-08-26 15:07] LABS: Iron 38 mcg/dL (45-160); Percent Iron Saturation 18 % (15-50); Total Iron Binding Capacity 210 mcg/dL (228-428); Unsaturated Iron Binding 172 ug/dL
[2020-08-26 17:11] LABS: MANUAL DIFF FLAG NO
[2020-08-26 17:13] LABS: Basophils Percent Auto 0.2 % (0-2); Eosinophils Absolute Auto 0.2 X10*3/uL (0.0-0.4); Eosinophils Percent Auto 1.6 % (0-4); Hematocrit 33.2 % (42-52); Hemoglobin 10.7 g/dl (14.0-18.0); Imm Gran Abs Auto 0.03 X10*3/uL (0.00-0.03); Imm Gran Pct Auto 0.3 % (0.0-0.4); Lymphocytes Absolute Auto 2.8 X10*3/uL (1.2-4.9); Mean Corpuscular HGB Conc 32.2 g/dl (31.0-36.0); Mean Corpuscular Hemoglobin 26.5 pg (27.0-33.0); Mean Corpuscular Volume 82.2 fL (80-98); Mean Platelet Volume 9.4 fL (9.4-12.4); Monocytes Absolute Auto 0.9 X10*3/uL (0.1-1.2); Monocytes Percent Auto 9.3 % (2-11); Neutrophils Absolute Auto 6.2 X10*3/uL (2.0-8.3); Neutrophils Percent Auto 60.6 % (45-73); Platelet Count 296 X10*3/uL (160-400); Red Blood Count 4.04 X10*6/uL (4.60-5.80); Red Cell Distribution Width 16.8 % (11.0-16.0); White Blood Count 10.1 X10*3/uL (4.8-10.8)
[2020-08-26 17:43] LABS: Iron 37 mcg/dL (45-160); Percent Iron Saturation 17 % (15-50); Total Iron Binding Capacity 222 mcg/dL (228-428); Unsaturated Iron Binding 185 ug/dL
[2020-08-26 17:48] VITALS: RESP 14
--- NOTE | 2020-08-27 11:44 | P.PNIM_ITS ---
Subjective Subjective Date of Service: 08/27/20 Interval History: Seen in f/u for pedal edema, anemia, and Scot-- pedal edam seem chronic, he has no heart failure symptom, SCOT has resolved and anemia of chronic disease is stable. Review of Systems Gen: no fever Resp: no sob, no cough CV: no chest, no DODD, +leg edema GI: No n/v, no abd pain Neuro: No confusion Physical Exam Vital Signs: Vital Signs: Last Vital Signs Temp 97.9 F 08/21/20 06:35 Pulse 76 08/26/20 11:01 Resp 14 08/26/20 17:48 BP 115/60 08/26/20 11:01 Pulse Ox 97 08/26/20 11:01 Body Mass Index 42.0 Const: Other: General: alert Resp: CTA bilateral CVS: S1,S2,RRR GI: +BS, NT, no distention Skin: No rash Neuro: motor grossly intact Psych: appropriate affect Objective Data Current Medications Generic Name Dose Route Start Last Admin Trade Name Ponchoq PRN Reason Stop Dose Admin Acetaminophen 650 mg 07/23/20 21:13 08/11/20 12:28 Acetaminophen 325 Mg Tablet PO 650 mg Q6H PRN Administration Headache/Pain Mild Scale (1-3) Al Hydroxide/Mg Hydroxide 30 ml 07/23/20 21:13 Magnesium Hydrox/Alum Hydrox 30 Ml Oral.Susp PO Q6H PRN Heartburn/Nausea Aspirin 81 mg 07/25/20 09:00 08/27/20 08:40 Aspirin Enteric Coated 81 Mg Tablet.Dr PO Not Given DAILY [facility] Atorvastatin Calcium 80 mg 07/23/20 21:00 08/26/20 20:50 Atorvastatin Calcium 80 Mg Tablet PO Not Given BEDTIME [facility] Clopidogrel Bisulfate 75 mg 07/23/20 17:00 08/27/20 08:40 Clopidogrel Bisulfate 75 Mg Tablet PO Not Given DAILY [facility] Clozapine 25 mg 08/15/20 09:00 08/27/20 08:40 Clozapine 25 Mg Tablet PO Not Given DAILY [facility] Enoxaparin Sodium 40 mg 07/29/20 15:15 08/26/20 14:29 Enoxaparin Sodium 40 Mg/0.4 Ml Syringe SUBCUT Not Given Q24H [facility] Finasteride 5 mg 07/23/20 17:00 08/27/20 08:40 Finasteride 5 Mg Tablet PO Not Given DAILY [facility] Hydroxyzine HCl 25 mg 07/23/20 21:13 08/17/20 03:00 Hydroxyzine Hcl 25 Mg Tablet PO 25 mg BEDTIME PRN Administration Anxiety Lisinopril 2.5 mg 08/18/20 09:00 08/27/20 08:40 Lisinopril 2.5 Mg Tablet PO Not Given DAILY [facility] Protocol Loperamide HCl 2 mg 07/24/20 15:43 07/24/20 15:54 Loperamide Hcl 2 Mg Capsule PO 2 mg Q4H PRN Administration Diarrhea Magnesium Hydroxide 30 ml 07/23/20 21:13 Milk Of Magnesia 30 Ml Oral.Susp PO DAILY PRN Constipation Metformin HCl 500 mg 08/14/20 17:00 08/27/20 08:39 Metformin Hcl 500 Mg Tablet PO Not Given BIDWM [facility] Metoprolol Succinate 75 mg 07/23/20 17:00 08/27/20 08:41 Metoprolol Succinate Er 25 Mg Tab.Er.24h PO Not Given DAILY [facility] Protocol Multi-Ingred Cream/Lotion/Oil/Oint 1 appl 07/24/20 21:00 08/27/20 08:41 Mineral Oil/Petrolatum,White 106 Gm Tube TOPICAL Not Given BID [facility] Patient Own 1 each 08/14/20 10:27 08/14/20 12:06 Medication (Thera PO 1 each Breath Dry Mouth Q4H PRN Administration Lozenge) Dry Mouth Patient Own 1 each 08/14/20 10:30 08/27/20 08:41 Medication (Biotene PO Not Given 15 Ml) BID [facility] Nystatin 1 appl 07/26/20 19:25 08/27/20 08:41 Nystatin Cream 15 Gm Tube TOPICAL Not Given DAILY [facility] Protocol Olanzapine 10 mg 08/21/20 21:07 Olanzapine Odt 10 Mg Tab.Rapdis TRANSLINGU BID PRN severe agitation,aggression Omeprazole 20 mg 07/24/20 06:30 08/27/20 08:39 Omeprazole 20 Mg Capsule.Dr PO Not Given DAILY@0630 [facility] Ondansetron HCl 4 mg 08/08/20 09:04 08/08/20 09:27 Ondansetron Odt 4 Mg Tab.Rapdis TRANSLINGU 4 mg Q6H PRN Administration Nausea Saliva Substitute 1 spray 08/12/20 15:06 Dry Mouth [place] 30 Ml [place] MUCOUS MEM Q2H PRN Dry Mouth Tamsulosin HCl 0.4 mg 07/25/20 21:00 08/26/20 20:50 Tamsulosin Hcl 0.4 Mg Capsule PO Not Given BEDTIME [facility] Trazodone HCl 50 mg 07/23/20 21:13 08/17/20 03:00 Trazodone Hcl 50 Mg Tablet PO 50 mg BEDTIME PRN Administration Insomnia Vitamin D 50 mcg 07/23/20 21:00 08/26/20 20:50 Cholecalciferol (Vitamin D3) 25 Mcg Tablet PO Not Given BEDTIME [facility] Labs CBC & Chem 7: 08/26/20 17:08 08/23/20 07:57 Labs: Laboratory Results - last 24 hr 08/26/20 08/26/20 08/26/20 14:24 17:08 17:08 WBC 10.1 RBC 4.04 L Hgb 10.7 L Hct 33.2 L MCV 82.2 MCH 26.5 L MCHC 32.2 RDW 16.8 H Plt Count 296 D MPV 9.4 Immature Gran % (Auto) 0.3 Neut % (Auto) 60.6 Lymph % (Auto) 28.0 [place] % (Auto) 9.3 Eos % (Auto) 1.6 Baso % (Auto) 0.2 Lymph # (Auto) 2.8 [place] # (Auto) 0.9 Eos # (Auto) 0.2 Baso # (Auto) 0.0 Abs Immat Gran (auto) 0.03 Absolute Neuts (auto) 6.2 Absolute Nucleated RBC 0.000 Nucleated RBC % (auto) 0.0 Iron 38 L 37 L TIBC 210 L 222 L % Saturation 18 17 Unsat Iron Binding 172 185 Quality Stroke Does the patient have a stroke diagnosis?: No VTE Prior VTE?: No VTE Risk Level:: Medical - moderate - high VTE Device Contraindication: N/A - Device Ordered VTE Drug Contraindication: N/A - Med Ordered Assessment and Plan (1) SCOT (acute kidney injury): Status: Acute (2) Hyperlipidemia: Status: Acute (3) HTN (hypertension): Status: Acute (4) Schizophrenia, paranoid, subchronic with acute exacerbation: Status: Acute Assessment and Plan: 65 year male with DM, HTN, CAD, being treated with decompensated schizophrenia and has michelle leg edema michelle leg edam without other signs of symptoms of heart failure -I think this is dependent edema, albumin is slightly low, last BNP in the past was negative, we can repeat this and if he has symptoms of heart failure, should have echo done. Continue Lasix HTN--continue Metoprolol, Lisinipril HLD--Lipitor CAD--stable, continue BB, Statin, Plavix, ASA GERD PPI DM--continue Metformin Anemia-- of chronic disease, is stable and not trending down. Will continue to follow as needed
[2020-08-27] MEDS: cloZAPine 25 MG TABLET PO (13:42)
--- NOTE | 2020-08-27 17:37 | PC.NURSE ---
Patient continues to be resistive to care. This nurse attempted to educate patient on importance of medication/treatment and risks associated with refusal. Patient verbalizes understanding but continues to refuse care.
[2020-08-28 07:00] VITALS: BMI 39.4
--- NOTE | 2020-08-28 09:49 | P.PNPSI_ITS ---
Subjective Subjective Date of Service: 08/27/20 Reason For Visit: psychosis Guardianship: Yes Medical Problems Affecting Mental Status: No Interim History: PT has been less agitated was agreeable he states to restart clozapine still paranoid concerns aud valenzuela did get labs denies blood loss blood in stool Attending Groups: No Mental Status Exam Mental Status Exam Patient Appearance: Disheveled Patient Orientation: Person and Place Level of Consciousness: Awake Patient Behavior: Guarded, Passive, Suspicious, Restless (at times), Anxious, Fearful, Resistive to Care, Avoidant, Fatigued, Distractible, Isolative, Pacing (at times, running) and Poor Eye Contact Mood Description: Constricted Affect Description: Constricted Patient Cognition Impaired: Yes Ability to Follow Directions: Fair Speech Pattern: Perseverating, Impoverished, Spontaneous Speech and Soft-Spoken Memory Description: Remote Impaired and Episodic Impaired Hallucinations: Auditory Delusions: Being Controlled, Paranoid Ideation and Present Perceptual Disturbances: Derealization Thought Process: Illogical, Distracted and Rumination Thought Content: positive for Perseveration, positive for Thought Blocking and positive for Tangential Depressive Symptoms: Increased Anxiety, Insomnia, Increased Irritability, Difficulty Sleeping, Changes in Appetite, Significant Weight Loss, Loss of Int. in Activity, Hopelessness, Isolating-Friends/Family, Unhappiness, Increased Fatigue and Difficulty Concentrating Abnormal Motor Activity Signs and Symptoms: Restlessness Judgement: Poor Diagnostics Vital Signs (24Hr): Body Mass Index 42.0 Labs Results: 08/26/20 17:08 08/23/20 07:57 Labs: Laboratory Results - last 48 hr 08/26/20 08/26/20 08/26/20 14:24 17:08 17:08 WBC 10.1 RBC 4.04 L Hgb 10.7 L Hct 33.2 L MCV 82.2 MCH 26.5 L MCHC 32.2 RDW 16.8 H Plt Count 296 D MPV 9.4 Immature Gran % (Auto) 0.3 Neut % (Auto) 60.6 Lymph % (Auto) 28.0 [place] % (Auto) 9.3 Eos % (Auto) 1.6 Baso % (Auto) 0.2 Lymph # (Auto) 2.8 [place] # (Auto) 0.9 Eos # (Auto) 0.2 Baso # (Auto) 0.0 Abs Immat Gran (auto) 0.03 Absolute Neuts (auto) 6.2 Absolute Nucleated RBC 0.000 Nucleated RBC % (auto) 0.0 Iron 38 L 37 L TIBC 210 L 222 L % Saturation 18 17 Unsat Iron Binding 172 185 Imaging Radiology Impressions: ITS Impressions KUB X-Ray 07/22/20 17:13 IMPRESSION: Moderate volume of stool scattered in colon. No bowel obstruction. Medications Medications Current Medications Generic Name Dose Route Start Last Admin Trade Name Freq PRN Reason Stop Dose Admin Acetaminophen 650 mg 07/23/20 21:13 08/11/20 12:28 Acetaminophen 325 Mg Tablet PO 650 mg Q6H PRN Administration Headache/Pain Mild Scale (1-3) Al Hydroxide/Mg Hydroxide 30 ml 07/23/20 21:13 Magnesium Hydrox/Alum Hydrox 30 Ml Oral.Susp PO Q6H PRN Heartburn/Nausea Aspirin 81 mg 07/25/20 09:00 08/28/20 09:00 Aspirin Enteric Coated 81 Mg Tablet.Dr PO Not Given DAILY [facility] Atorvastatin Calcium 80 mg 07/23/20 21:00 08/27/20 20:59 Atorvastatin Calcium 80 Mg Tablet PO Not Given BEDTIME [facility] Clopidogrel Bisulfate 75 mg 07/23/20 17:00 08/28/20 09:01 Clopidogrel Bisulfate 75 Mg Tablet PO Not Given DAILY [facility] Clozapine 25 mg 08/15/20 09:00 08/28/20 08:55 Clozapine 25 Mg Tablet PO Not Given DAILY [facility] Enoxaparin Sodium 40 mg 07/29/20 15:15 08/27/20 15:10 Enoxaparin Sodium 40 Mg/0.4 Ml Syringe SUBCUT Not Given Q24H [facility] Finasteride 5 mg 07/23/20 17:00 08/28/20 09:01 Finasteride 5 Mg Tablet PO Not Given DAILY [facility] Hydroxyzine HCl 25 mg 07/23/20 21:13 08/17/20 03:00 Hydroxyzine Hcl 25 Mg Tablet PO 25 mg BEDTIME PRN Administration Anxiety Lisinopril 2.5 mg 08/18/20 09:00 08/28/20 09:01 Lisinopril 2.5 Mg Tablet PO Not Given DAILY [facility] Protocol Loperamide HCl 2 mg 07/24/20 15:43 07/24/20 15:54 Loperamide Hcl 2 Mg Capsule PO 2 mg Q4H PRN Administration Diarrhea Magnesium Hydroxide 30 ml 07/23/20 21:13 Milk Of Magnesia 30 Ml Oral.Susp PO DAILY PRN Constipation Metformin HCl 500 mg 08/14/20 17:00 08/28/20 08:59 Metformin Hcl 500 Mg Tablet PO Not Given BIDWM [facility] Metoprolol Succinate 75 mg 07/23/20 17:00 08/28/20 09:02 Metoprolol Succinate Er 25 Mg Tab.Er.24h PO Not Given DAILY [facility] Protocol Multi-Ingred Cream/Lotion/Oil/Oint 1 appl 07/24/20 21:00 08/28/20 09:02 Mineral Oil/Petrolatum,White 106 Gm Tube TOPICAL Not Given BID [facility] Patient Own 1 each 08/14/20 10:27 08/14/20 12:06 Medication (Thera PO 1 each Breath Dry Mouth Q4H PRN Administration Lozenge) Dry Mouth Patient Own 1 each 08/14/20 10:30 08/28/20 09:02 Medication (Biotene PO Not Given 15 Ml) BID [facility] Nystatin 1 appl 07/26/20 19:25 08/28/20 09:02 Nystatin Cream 15 Gm Tube TOPICAL Not Given DAILY [facility] Protocol Olanzapine 10 mg 08/21/20 21:07 Olanzapine Odt 10 Mg Tab.Rapdis TRANSLINGU BID PRN severe agitation,aggression Omeprazole 20 mg 07/24/20 06:30 08/28/20 08:59 Omeprazole 20 Mg Capsule.Dr PO Not Given DAILY@0630 [facility] Ondansetron HCl 4 mg 08/08/20 09:04 08/08/20 09:27 Ondansetron Odt 4 Mg Tab.Rapdis TRANSLINGU 4 mg Q6H PRN Administration Nausea Saliva Substitute 1 spray 08/12/20 15:06 Dry Mouth [place] 30 Ml [place] MUCOUS MEM Q2H PRN Dry Mouth Tamsulosin HCl 0.4 mg 07/25/20 21:00 08/27/20 20:59 Tamsulosin Hcl 0.4 Mg Capsule PO Not Given BEDTIME [facility] Trazodone HCl 50 mg 07/23/20 21:13 08/17/20 03:00 Trazodone Hcl 50 Mg Tablet PO 50 mg BEDTIME PRN Administration Insomnia Vitamin D 50 mcg 07/23/20 21:00 08/27/20 20:59 Cholecalciferol (Vitamin D3) 25 Mcg Tablet PO Not Given BEDTIME [facility] Allergies Allergies Allergy/AdvReac Type Severity Reaction Status Date / Time No Known Allergies Allergy Verified 07/21/20 16:39 Assessment & Plan Assessment & Plan (1) Schizophrenia, paranoid, subchronic with acute exacerbation: Status: Acute Code(s): F20.0 - Paranoid schizophrenia Assessment and Plan: Clozaril compliance is inconsistent currently. Will keep dosage at 25 mg to avoid adverse response. Jesse's ammendment process continues to move forward. Continue 0ne to [facility] pt as he will allow. [place] building. Continue to offer items to improve comfort and well being. get stool for guaiac .agreed to restart clozapine Greater than 50% of the session was spent on counseling and/or coordination of care Reason for contiued inpatient stay Substantial Risk for: inability to function and rapid decompensation
--- NOTE | 2020-08-28 12:24 | HO.PSYCHPN ---
Subjective Subjective Date of Service: 08/28/20 Reason For Visit: psychosis Subjective Notes: Conditional Voluntary Healthcare Proxy: No Guardianship: No Medical Problems Affecting Mental Status: Yes Interim History: Labile, somewhat more receptive to brief interactions. Team reports pt did tell his civil rights attorney yesterday that he was receptive to medications. They are talking with him about the upcoming visit from his brother. Medication Compliance: Intermittent Side effects from medications: No Attending Groups: No Review of Systems Reports behavioral changes and Reports confusion Psychiatric: Reports abnormal sleep pattern, Reports anxiety, Reports behavioral changes, Reports change in appetite, Reports confusion, Reports difficulty concentrating, Reports auditory hallucinations, Reports irritability, Reports anhedonia, Reports mood swings, Reports paranoia and Reports hallucinations Mental Status Exam Mental Status Exam Patient Appearance: Disheveled Patient Orientation: Person Level of Consciousness: Awake Patient Behavior: Guarded, Talkative, Suspicious, Anxious, Resistive to Care, Fatigued and Good Eye Contact Mood Description: Labile Affect Description: Labile Patient Cognition Impaired: Yes Ability to Follow Directions: Fair Speech Pattern: Spontaneous Speech and Soft-Spoken Memory Description: Remote Impaired and Episodic Impaired Hallucinations: Auditory Delusions: Being Controlled, Paranoid Ideation and Present Perceptual Disturbances: Derealization Thought Process: Distracted Thought Content: positive for Perseveration, positive for Preoccupation and positive for Thought Blocking Depressive Symptoms: Increased Anxiety, Insomnia, Difficulty Sleeping, Changes in Appetite, Crying Spells, Significant Weight Loss and Difficulty Concentrating Judgement: Poor Diagnostics Vital Signs (24Hr): Body Mass Index 39.4 Labs Results: 08/26/20 17:08 08/23/20 07:57 Labs: Laboratory Results - last 48 hr 08/26/20 08/26/20 08/26/20 14:24 17:08 17:08 WBC 10.1 RBC 4.04 L Hgb 10.7 L Hct 33.2 L MCV 82.2 MCH 26.5 L MCHC 32.2 RDW 16.8 H Plt Count 296 D MPV 9.4 Immature Gran % (Auto) 0.3 Neut % (Auto) 60.6 Lymph % (Auto) 28.0 [place] % (Auto) 9.3 Eos % (Auto) 1.6 Baso % (Auto) 0.2 Lymph # (Auto) 2.8 [place] # (Auto) 0.9 Eos # (Auto) 0.2 Baso # (Auto) 0.0 Abs Immat Gran (auto) 0.03 Absolute Neuts (auto) 6.2 Absolute Nucleated RBC 0.000 Nucleated RBC % (auto) 0.0 Iron 38 L 37 L TIBC 210 L 222 L % Saturation 18 17 Unsat Iron Binding 172 185 Imaging Radiology Impressions: ITS Impressions KUB X-Ray 07/22/20 17:13 IMPRESSION: Moderate volume of stool scattered in colon. No bowel obstruction. Medications Medications Current Medications Generic Name Dose Route Start Last Admin Trade Name Freq PRN Reason Stop Dose Admin Acetaminophen 650 mg 07/23/20 21:13 08/11/20 12:28 Acetaminophen 325 Mg Tablet PO 650 mg Q6H PRN Administration Headache/Pain Mild Scale (1-3) Al Hydroxide/Mg Hydroxide 30 ml 07/23/20 21:13 Magnesium Hydrox/Alum Hydrox 30 Ml Oral.Susp PO Q6H PRN Heartburn/Nausea Aspirin 81 mg 07/25/20 09:00 08/28/20 09:00 Aspirin Enteric Coated 81 Mg Tablet.Dr PO Not Given DAILY [facility] Atorvastatin Calcium 80 mg 07/23/20 21:00 08/27/20 20:59 Atorvastatin Calcium 80 Mg Tablet PO Not Given BEDTIME [facility] Clopidogrel Bisulfate 75 mg 07/23/20 17:00 08/28/20 09:01 Clopidogrel Bisulfate 75 Mg Tablet PO Not Given DAILY [facility] Clozapine 25 mg 08/15/20 09:00 08/28/20 08:55 Clozapine 25 Mg Tablet PO Not Given DAILY [facility] Enoxaparin Sodium 40 mg 07/29/20 15:15 08/27/20 15:10 Enoxaparin Sodium 40 Mg/0.4 Ml Syringe SUBCUT Not Given Q24H [facility] Finasteride 5 mg 07/23/20 17:00 08/28/20 09:01 Finasteride 5 Mg Tablet PO Not Given DAILY [facility] Hydroxyzine HCl 25 mg 07/23/20 21:13 08/17/20 03:00 Hydroxyzine Hcl 25 Mg Tablet PO 25 mg BEDTIME PRN Administration Anxiety Lisinopril 2.5 mg 08/18/20 09:00 08/28/20 09:01 Lisinopril 2.5 Mg Tablet PO Not Given DAILY [facility] Protocol Loperamide HCl 2 mg 07/24/20 15:43 07/24/20 15:54 Loperamide Hcl 2 Mg Capsule PO 2 mg Q4H PRN Administration Diarrhea Magnesium Hydroxide 30 ml 07/23/20 21:13 Milk Of Magnesia 30 Ml Oral.Susp PO DAILY PRN Constipation Metformin HCl 500 mg 08/14/20 17:00 08/28/20 08:59 Metformin Hcl 500 Mg Tablet PO Not Given BIDWM [facility] Metoprolol Succinate 75 mg 07/23/20 17:00 08/28/20 09:02 Metoprolol Succinate Er 25 Mg Tab.Er.24h PO Not Given DAILY [facility] Protocol Multi-Ingred Cream/Lotion/Oil/Oint 1 appl 07/24/20 21:00 08/28/20 09:02 Mineral Oil/Petrolatum,White 106 Gm Tube TOPICAL Not Given BID [facility] Patient Own 1 each 08/14/20 10:27 08/14/20 12:06 Medication (Thera PO 1 each Breath Dry Mouth Q4H PRN Administration Lozenge) Dry Mouth Patient Own 1 each 08/14/20 10:30 08/28/20 09:02 Medication (Biotene PO Not Given 15 Ml) BID [facility] Nystatin 1 appl 07/26/20 19:25 08/28/20 09:02 Nystatin Cream 15 Gm Tube TOPICAL Not Given DAILY [facility] Protocol Olanzapine 10 mg 08/21/20 21:07 Olanzapine Odt 10 Mg Tab.Rapdis TRANSLINGU BID PRN severe agitation,aggression Omeprazole 20 mg 07/24/20 06:30 08/28/20 08:59 Omeprazole 20 Mg Capsule.Dr PO Not Given DAILY@0630 [facility] Ondansetron HCl 4 mg 08/08/20 09:04 08/08/20 09:27 Ondansetron Odt 4 Mg Tab.Rapdis TRANSLINGU 4 mg Q6H PRN Administration Nausea Saliva Substitute 1 spray 08/12/20 15:06 Dry Mouth [place] 30 Ml [place] MUCOUS MEM Q2H PRN Dry Mouth Tamsulosin HCl 0.4 mg 07/25/20 21:00 08/27/20 20:59 Tamsulosin Hcl 0.4 Mg Capsule PO Not Given BEDTIME [facility] Trazodone HCl 50 mg 07/23/20 21:13 08/17/20 03:00 Trazodone Hcl 50 Mg Tablet PO 50 mg BEDTIME PRN Administration Insomnia Vitamin D 50 mcg 07/23/20 21:00 08/27/20 20:59 Cholecalciferol (Vitamin D3) 25 Mcg Tablet PO Not Given BEDTIME [facility] Allergies Allergies Allergy/AdvReac Type Severity Reaction Status Date / Time No Known Allergies Allergy Verified 07/21/20 16:39 Assessment & Plan Assessment & Plan (1) Schizophrenia, paranoid, subchronic with acute exacerbation: Status: Acute Code(s): F20.0 - Paranoid schizophrenia Assessment and Plan: Clozaril compliance is inconsistent currently. Will keep dosage at 25 mg to avoid adverse response. Jesse's ammendment process continues to move forward. Continue 0ne to [facility] pt as he will allow. [place] building. Continue to offer items to improve comfort and well being. get stool for guaiac .agreed to restart clozapine but has declined today Greater than 50% of the session was spent on counseling and/or coordination of care Informed Consent: does not understand and further education needed Reason for contiued inpatient stay Substantial Risk for: harm to self, inability to function and med/psych decompensation
[2020-08-28 16:55] VITALS: BP 121/61; PULSE 62; RESP 18; O2SAT 93
[2020-08-29 04:00] VITALS: RESP 16
[2020-08-29] MEDS: cloZAPine 25 MG TABLET PO (11:25)
--- NOTE | 2020-08-29 16:58 | P.PNPSI_ITS ---
Subjective Subjective Date of Service: 08/29/20 Reason For Visit: psychosis Subjective Notes: Conditional Voluntary Healthcare Proxy: No Guardianship: Yes ([facility] pending) Medical Problems Affecting Mental Status: No Interim History: Team reports pt continues to report delusional content. With TW, pt is less frightened today, he was able to have two brief conversations without jumping up to walk or use the restroom. Did accept medications. We continue to await information from the court to continue treatment plan. Medication Compliance: Yes (Team reports he did take Clozaril today.) Side effects from medications: No Attending Groups: No Review of Systems Review of Systems Yes Unobtainable due to mental status Reports behavioral changes Psychiatric: Reports abnormal sleep pattern, Reports anxiety, Reports behavioral changes, Reports change in appetite, Reports depression, Reports difficulty concentrating, Reports auditory hallucinations, Reports hopelessness, Reports irritability, Reports anhedonia, Reports mood swings, Reports paranoia, Reports visual hallucinations and Reports hallucinations Mental Status Exam Mental Status Exam Patient Appearance: Disheveled Patient Orientation: Person Level of Consciousness: Awake and Sedated Patient Behavior: Guarded, Suspicious, Anxious, Sedated, Fearful, Distractible, Isolative and Good Eye Contact Mood Description: Calm, Suspicious, Withdrawn, Constricted, Relaxed, Depressed, Fearful, Anxious, Flat, Sad and Apprehensive Affect Description: Flat Patient Cognition Impaired: Yes Ability to Follow Directions: Fair Speech Pattern: Spontaneous Speech Memory Description: Remote Impaired and Episodic Impaired Hallucinations: Auditory Delusions: Being Controlled, Paranoid Ideation and Present Thought Process: Illogical, Distracted and Rumination Thought Content: positive for Perseveration Depressive Symptoms: Increased Anxiety, Difficulty Sleeping, Changes in Appetite, Significant Weight Loss, Loss of Int. in Activity and Difficulty Concentrating Abnormal Motor Activity Signs and Symptoms: Restlessness Judgement: Poor Diagnostics Vital Signs (24Hr): Vital Signs - 24 hr 08/29/20 04:00 Respiratory Rate 16 Body Mass Index 39.4 Labs Results: 08/26/20 17:08 08/23/20 07:57 Imaging Radiology Impressions: ITS Impressions KUB X-Ray 07/22/20 17:13 IMPRESSION: Moderate volume of stool scattered in colon. No bowel obstruction. Medications Medications Current Medications Generic Name Dose Route Start Last Admin Trade Name Freq PRN Reason Stop Dose Admin Acetaminophen 650 mg 07/23/20 21:13 08/11/20 12:28 Acetaminophen 325 Mg Tablet PO 650 mg Q6H PRN Administration Headache/Pain Mild Scale (1-3) Al Hydroxide/Mg Hydroxide 30 ml 07/23/20 21:13 Magnesium Hydrox/Alum Hydrox 30 Ml Oral.Susp PO Q6H PRN Heartburn/Nausea Aspirin 81 mg 07/25/20 09:00 08/29/20 09:17 Aspirin Enteric Coated 81 Mg Tablet.Dr PO Not Given DAILY [facility] Atorvastatin Calcium 80 mg 07/23/20 21:00 08/28/20 20:23 Atorvastatin Calcium 80 Mg Tablet PO Not Given BEDTIME [facility] Clopidogrel Bisulfate 75 mg 07/23/20 17:00 08/29/20 09:16 Clopidogrel Bisulfate 75 Mg Tablet PO Not Given DAILY [facility] Clozapine 25 mg 08/15/20 09:00 08/29/20 11:25 Clozapine 25 Mg Tablet PO 25 mg DAILY [facility] Administration Enoxaparin Sodium 40 mg 07/29/20 15:15 08/29/20 16:06 Enoxaparin Sodium 40 Mg/0.4 Ml Syringe SUBCUT Not Given Q24H [facility] Finasteride 5 mg 07/23/20 17:00 08/29/20 09:15 Finasteride 5 Mg Tablet PO Not Given DAILY [facility] Hydroxyzine HCl 25 mg 07/23/20 21:13 08/17/20 03:00 Hydroxyzine Hcl 25 Mg Tablet PO 25 mg BEDTIME PRN Administration Anxiety Lisinopril 2.5 mg 08/18/20 09:00 08/29/20 09:15 Lisinopril 2.5 Mg Tablet PO Not Given DAILY [facility] Protocol Loperamide HCl 2 mg 07/24/20 15:43 07/24/20 15:54 Loperamide Hcl 2 Mg Capsule PO 2 mg Q4H PRN Administration Diarrhea Magnesium Hydroxide 30 ml 07/23/20 21:13 Milk Of Magnesia 30 Ml Oral.Susp PO DAILY PRN Constipation Metformin HCl 500 mg 08/14/20 17:00 08/29/20 16:52 Metformin Hcl 500 Mg Tablet PO Not Given BIDWM [facility] Metoprolol Succinate 75 mg 07/23/20 17:00 08/29/20 09:17 Metoprolol Succinate Er 25 Mg Tab.Er.24h PO Not Given DAILY [facility] Protocol Multi-Ingred Cream/Lotion/Oil/Oint 1 appl 07/24/20 21:00 08/29/20 11:22 Mineral Oil/Petrolatum,White 106 Gm Tube TOPICAL Not Given BID [facility] Patient Own 1 each 08/14/20 10:27 08/14/20 12:06 Medication (Thera PO 1 each Breath Dry Mouth Q4H PRN Administration Lozenge) Dry Mouth Patient Own 1 each 08/14/20 10:30 08/29/20 09:17 Medication (Biotene PO Not Given 15 Ml) BID [facility] Nystatin 1 appl 07/26/20 19:25 08/29/20 11:22 Nystatin Cream 15 Gm Tube TOPICAL Not Given DAILY [facility] Protocol Olanzapine 10 mg 08/21/20 21:07 Olanzapine Odt 10 Mg Tab.Rapdis TRANSLINGU BID PRN severe agitation,aggression Omeprazole 20 mg 07/24/20 06:30 08/29/20 09:15 Omeprazole 20 Mg Capsule.Dr PO Not Given DAILY@0630 [facility] Ondansetron HCl 4 mg 08/08/20 09:04 08/08/20 09:27 Ondansetron Odt 4 Mg Tab.Rapdis TRANSLINGU 4 mg Q6H PRN Administration Nausea Saliva Substitute 1 spray 08/12/20 15:06 Dry Mouth [place] 30 Ml [place] MUCOUS MEM Q2H PRN Dry Mouth Tamsulosin HCl 0.4 mg 07/25/20 21:00 08/28/20 20:23 Tamsulosin Hcl 0.4 Mg Capsule PO Not Given BEDTIME [facility] Trazodone HCl 50 mg 07/23/20 21:13 08/17/20 03:00 Trazodone Hcl 50 Mg Tablet PO 50 mg BEDTIME PRN Administration Insomnia Vitamin D 50 mcg 07/23/20 21:00 08/28/20 20:23 Cholecalciferol (Vitamin D3) 25 Mcg Tablet PO Not Given BEDTIME [facility] Allergies Allergies Allergy/AdvReac Type Severity Reaction Status Date / Time No Known Allergies Allergy Verified 07/21/20 16:39 Assessment & Plan Assessment & Plan (1) Schizophrenia, paranoid, subchronic with acute exacerbation: Status: Acute Code(s): F20.0 - Paranoid schizophrenia Assessment and Plan: Clozaril compliance is inconsistent currently. Will keep dosage at 25 mg to avoid adverse response. Jesse's ammendment process continues to move forward. Continue 0ne to [facility] pt as he will allow. [place] building. Continue to offer items to improve comfort and well being. get stool for guaiac .agreed to restart clozapine-accepted dosage from team today after one refusal. Greater than 50% of the session was spent on counseling and/or coordination of care Reason for contiued inpatient stay Substantial Risk for: harm to self, inability to function, rapid decompensation and med/psych decompensation
--- NOTE | 2020-08-30 07:53 | HO.PSYCHPN ---
Subjective Subjective Date of Service: 08/30/20 Reason For Visit: psychosis Interim History: Patient was seen in rounds today. He continues to be accepting care selectively. Mostly refusing p.r.n. medications in taking the rest of his medications selectively. He is on low-dose Clozaril. He denies any side effects. He continues to be on one-to-one observation level. Yesterday he was up and around a little bit and actually ran down the valenzuela briefly. He does continue to have psychotic symptoms, delusions and auditory hallucinations. No complaints or changes today. Current regimen is maintained with no changes Medication Compliance: Intermittent Side effects from medications: No Review of Systems Review of Systems Yes Unobtainable due to mental status Reports behavioral changes Psychiatric: Reports abnormal sleep pattern, Reports anxiety, Reports behavioral changes, Reports change in appetite, Reports depression, Reports difficulty concentrating, Reports auditory hallucinations, Reports hopelessness, Reports irritability, Reports anhedonia, Reports mood swings, Reports paranoia, Reports visual hallucinations and Reports hallucinations Diagnostics Vital Signs (24Hr): Body Mass Index 39.4 Labs Results: 08/26/20 17:08 08/23/20 07:57 Imaging Radiology Impressions: ITS Impressions [facility] X-Ray 07/22/20 17:13 IMPRESSION: Moderate volume of stool scattered in colon. No bowel obstruction. Medications Medications Current Medications Generic Name Dose Route Start Last Admin Trade Name Jaret PRN Reason Stop Dose Admin Acetaminophen 650 mg 07/23/20 21:13 08/11/20 12:28 Acetaminophen 325 Mg Tablet PO 650 mg Q6H PRN Administration Headache/Pain Mild Scale (1-3) Al Hydroxide/Mg Hydroxide 30 ml 07/23/20 21:13 Magnesium Hydrox/Alum Hydrox 30 Ml Oral.Susp PO Q6H PRN Heartburn/Nausea Aspirin 81 mg 07/25/20 09:00 08/29/20 09:17 Aspirin Enteric Coated 81 Mg Tablet. PO Not Given DAILY [facility] Atorvastatin Calcium 80 mg 07/23/20 21:00 08/29/20 21:23 Atorvastatin Calcium 80 Mg Tablet PO Not Given BEDTIME [facility] Clopidogrel Bisulfate 75 mg 07/23/20 17:00 08/29/20 09:16 Clopidogrel Bisulfate 75 Mg Tablet PO Not Given DAILY [facility] Clozapine 25 mg 08/15/20 09:00 08/29/20 11:25 Clozapine 25 Mg Tablet PO 25 mg DAILY [facility] Administration Enoxaparin Sodium 40 mg 07/29/20 15:15 08/29/20 16:06 Enoxaparin Sodium 40 Mg/0.4 Ml Syringe SUBCUT Not Given Q24H [facility] Finasteride 5 mg 07/23/20 17:00 08/29/20 09:15 Finasteride 5 Mg Tablet PO Not Given DAILY [facility] Hydroxyzine HCl 25 mg 07/23/20 21:13 08/17/20 03:00 Hydroxyzine Hcl 25 Mg Tablet PO 25 mg BEDTIME PRN Administration Anxiety Lisinopril 2.5 mg 08/18/20 09:00 08/29/20 09:15 Lisinopril 2.5 Mg Tablet PO Not Given DAILY [facility] Protocol Loperamide HCl 2 mg 07/24/20 15:43 07/24/20 15:54 Loperamide Hcl 2 Mg Capsule PO 2 mg Q4H PRN Administration Diarrhea Magnesium Hydroxide 30 ml 07/23/20 21:13 Milk Of Magnesia 30 Ml Oral.Susp PO DAILY PRN Constipation Metformin HCl 500 mg 08/14/20 17:00 08/29/20 16:52 Metformin Hcl 500 Mg Tablet PO Not Given BIDWM [facility] Metoprolol Succinate 75 mg 07/23/20 17:00 08/29/20 09:17 Metoprolol Succinate Er 25 Mg Tab.Er.24h PO Not Given DAILY [facility] Protocol Multi-Ingred Cream/Lotion/Oil/Oint 1 appl 07/24/20 21:00 08/29/20 21:23 Mineral Oil/Petrolatum,White 106 Gm Tube TOPICAL Not Given BID [facility] Patient Own 1 each 08/14/20 10:27 08/14/20 12:06 Medication (Thera PO 1 each Breath Dry Mouth Q4H PRN Administration Lozenge) Dry Mouth Patient Own 1 each 08/14/20 10:30 08/29/20 21:24 Medication (Biotene PO Not Given 15 Ml) BID [facility] Nystatin 1 appl 07/26/20 19:25 08/29/20 11:22 Nystatin Cream 15 Gm Tube TOPICAL Not Given DAILY [facility] Protocol Olanzapine 10 mg 08/21/20 21:07 Olanzapine Odt 10 Mg Tab.Rapdis TRANSLINGU BID PRN severe agitation,aggression Omeprazole 20 mg 07/24/20 06:30 08/29/20 09:15 Omeprazole 20 Mg Capsule.Dr PO Not Given DAILY@0630 [facility] Ondansetron HCl 4 mg 08/08/20 09:04 08/08/20 09:27 Ondansetron Odt 4 Mg Tab.Rapdis TRANSLINGU 4 mg Q6H PRN Administration Nausea Saliva Substitute 1 spray 08/12/20 15:06 Dry Mouth [place] 30 Ml [place] MUCOUS MEM Q2H PRN Dry Mouth Tamsulosin HCl 0.4 mg 07/25/20 21:00 08/29/20 21:24 Tamsulosin Hcl 0.4 Mg Capsule PO Not Given BEDTIME [facility] Trazodone HCl 50 mg 07/23/20 21:13 08/17/20 03:00 Trazodone Hcl 50 Mg Tablet PO 50 mg BEDTIME PRN Administration Insomnia Vitamin D 50 mcg 07/23/20 21:00 08/29/20 21:23 Cholecalciferol (Vitamin D3) 25 Mcg Tablet PO Not Given BEDTIME [facility] Allergies Allergies Allergy/AdvReac Type Severity Reaction Status Date / Time No Known Allergies Allergy Verified 07/21/20 16:39 Assessment & Plan Assessment & Plan (1) Schizophrenia, paranoid, subchronic with acute exacerbation: Status: Acute Code(s): F20.0 - Paranoid schizophrenia Assessment and Plan: Clozaril compliance is inconsistent currently. Will keep dosage at 25 mg to avoid adverse response. Jesse's ammendment process continues to move forward. Continue 0ne to [facility] pt as he will allow. [place] building. Continue to offer items to improve comfort and well being. get stool for guaiac .agreed to restart clozapine-accepted dosage from team today after one refusal. Greater than 50% of the session was spent on counseling and/or coordination of care Reason for contiued inpatient stay Substantial Risk for: harm to self
[2020-08-31 06:00] VITALS: BP 109/55; PULSE 95; TEMP 36.7
--- NOTE | 2020-08-31 07:50 | HO.PSYCHPN ---
Subjective Subjective Date of Service: 08/31/20 Reason For Visit: psychosis Interim History: Patient was seen in rounds today. He has been getting up and walking around little more. Continues to take very selective number of medications, refusing most care. He continues to be on one-to-one observation. Continues to be delusional and having auditory hallucinations. He has been sleeping intermittently. No complaints. No changes were made Current medications and labs reviewed Medication Compliance: Intermittent Side effects from medications: No Attending Groups: No Review of Systems Review of Systems Yes Unobtainable due to mental status Reports behavioral changes Psychiatric: Reports abnormal sleep pattern, Reports anxiety, Reports behavioral changes, Reports change in appetite, Reports depression, Reports difficulty concentrating, Reports auditory hallucinations, Reports hopelessness, Reports irritability, Reports anhedonia, Reports mood swings, Reports paranoia, Reports visual hallucinations and Reports hallucinations Mental Status Exam Mental Status Exam Patient Appearance: Disheveled Patient Orientation: Person Level of Consciousness: Awake and Sedated Patient Behavior: Guarded, Suspicious, Anxious, Sedated, Fearful, Distractible, Isolative and Good Eye Contact Mood Description: Calm, Suspicious, Withdrawn, Constricted, Relaxed, Depressed, Fearful, Anxious, Flat, Sad and Apprehensive Affect Description: Flat Patient Cognition Impaired: Yes Ability to Follow Directions: Fair Speech Pattern: Spontaneous Speech Memory Description: Remote Impaired and Episodic Impaired Hallucinations: Auditory Delusions: Being Controlled, Paranoid Ideation and Present Thought Process: Illogical, Distracted and Rumination Thought Content: positive for Perseveration Depressive Symptoms: Increased Anxiety, Difficulty Sleeping, Changes in Appetite, Significant Weight Loss, Loss of Int. in Activity and Difficulty Concentrating Abnormal Motor Activity Signs and Symptoms: Restlessness Judgement: Poor Diagnostics Vital Signs (24Hr): Vital Signs - 24 hr 08/31/20 06:00 Temperature 98.1 F Pulse Rate 95 Blood Pressure 109/55 L Body Mass Index 39.4 Labs Results: 08/26/20 17:08 08/23/20 07:57 Imaging Radiology Impressions: ITS Impressions [facility] X-Ray 07/22/20 17:13 IMPRESSION: Moderate volume of stool scattered in colon. No bowel obstruction. Medications Medications Current Medications Generic Name Dose Route Start Last Admin Trade Name Freq PRN Reason Stop Dose Admin Acetaminophen 650 mg 07/23/20 21:13 08/11/20 12:28 Acetaminophen 325 Mg Tablet PO 650 mg Q6H PRN Administration Headache/Pain Mild Scale (1-3) Al Hydroxide/Mg Hydroxide 30 ml 07/23/20 21:13 Magnesium Hydrox/Alum Hydrox 30 Ml Oral.Susp PO Q6H PRN Heartburn/Nausea Aspirin 81 mg 07/25/20 09:00 08/30/20 10:37 Aspirin Enteric Coated 81 Mg Tablet.Dr PO Not Given DAILY [facility] Atorvastatin Calcium 80 mg 07/23/20 21:00 08/30/20 20:41 Atorvastatin Calcium 80 Mg Tablet PO Not Given BEDTIME [facility] Clopidogrel Bisulfate 75 mg 07/23/20 17:00 08/30/20 10:37 Clopidogrel Bisulfate 75 Mg Tablet PO Not Given DAILY [facility] Clozapine 25 mg 08/15/20 09:00 08/30/20 10:37 Clozapine 25 Mg Tablet PO Not Given DAILY [facility] Enoxaparin Sodium 40 mg 07/29/20 15:15 08/30/20 14:53 Enoxaparin Sodium 40 Mg/0.4 Ml Syringe SUBCUT Not Given Q24H [facility] Finasteride 5 mg 07/23/20 17:00 08/30/20 10:37 Finasteride 5 Mg Tablet PO Not Given DAILY [facility] Hydroxyzine HCl 25 mg 07/23/20 21:13 08/17/20 03:00 Hydroxyzine Hcl 25 Mg Tablet PO 25 mg BEDTIME PRN Administration Anxiety Lisinopril 2.5 mg 08/18/20 09:00 08/30/20 10:40 Lisinopril 2.5 Mg Tablet PO Not Given DAILY [facility] Protocol Loperamide HCl 2 mg 07/24/20 15:43 07/24/20 15:54 Loperamide Hcl 2 Mg Capsule PO 2 mg Q4H PRN Administration Diarrhea Magnesium Hydroxide 30 ml 07/23/20 21:13 Milk Of Magnesia 30 Ml Oral.Susp PO DAILY PRN Constipation Metformin HCl 500 mg 08/14/20 17:00 08/30/20 17:28 Metformin Hcl 500 Mg Tablet PO Not Given BIDWM [facility] Metoprolol Succinate 75 mg 07/23/20 17:00 08/30/20 10:40 Metoprolol Succinate Er 25 Mg Tab.Er.24h PO Not Given DAILY [facility] Protocol Multi-Ingred Cream/Lotion/Oil/Oint 1 appl 07/24/20 21:00 08/30/20 20:41 Mineral Oil/Petrolatum,White 106 Gm Tube TOPICAL Not Given BID [facility] Patient Own 1 each 08/14/20 10:27 08/14/20 12:06 Medication (Thera PO 1 each Breath Dry Mouth Q4H PRN Administration Lozenge) Dry Mouth Patient Own 1 each 08/14/20 10:30 08/30/20 20:42 Medication (Biotene PO Not Given 15 Ml) BID [facility] Nystatin 1 appl 07/26/20 19:25 08/30/20 10:41 Nystatin Cream 15 Gm Tube TOPICAL Not Given DAILY [facility] Protocol Olanzapine 10 mg 08/21/20 21:07 Olanzapine Odt 10 Mg Tab.Rapdis TRANSLINGU BID PRN severe agitation,aggression Omeprazole 20 mg 07/24/20 06:30 08/30/20 10:36 Omeprazole 20 Mg Capsule.Dr PO Not Given DAILY@0630 [facility] Ondansetron HCl 4 mg 08/08/20 09:04 08/08/20 09:27 Ondansetron Odt 4 Mg Tab.Rapdis TRANSLINGU 4 mg Q6H PRN Administration Nausea Saliva Substitute 1 spray 08/12/20 15:06 Dry Mouth [place] 30 Ml [place] MUCOUS MEM Q2H PRN Dry Mouth Tamsulosin HCl 0.4 mg 07/25/20 21:00 08/30/20 20:42 Tamsulosin Hcl 0.4 Mg Capsule PO Not Given BEDTIME [facility] Trazodone HCl 50 mg 07/23/20 21:13 08/17/20 03:00 Trazodone Hcl 50 Mg Tablet PO 50 mg BEDTIME PRN Administration Insomnia Vitamin D 50 mcg 07/23/20 21:00 08/30/20 20:41 Cholecalciferol (Vitamin D3) 25 Mcg Tablet PO Not Given BEDTIME [facility] Allergies Allergies Allergy/AdvReac Type Severity Reaction Status Date / Time No Known Allergies Allergy Verified 07/21/20 16:39 Assessment & Plan Assessment & Plan (1) Schizophrenia, paranoid, subchronic with acute exacerbation: Status: Acute Code(s): F20.0 - Paranoid schizophrenia Assessment and Plan: Clozaril compliance is inconsistent currently. Will keep dosage at 25 mg to avoid adverse response. Jesse's ammendment process continues to move forward. Continue 0ne to [facility] pt as he will allow. [place] building. Continue to offer items to improve comfort and well being. get stool for guaiac .agreed to restart clozapine-accepted dosage from team today after one refusal. Greater than 50% of the session was spent on counseling and/or coordination of care Reason for contiued inpatient stay Substantial Risk for: med/psych decompensation
[2020-08-31 18:00] VITALS: BP 131/69; PULSE 101; RESP 14; O2SAT 96
[2020-09-01 06:00] VITALS: BP 119/59; PULSE 96; RESP 16; O2SAT 96
--- NOTE | 2020-09-01 12:47 | P.PNPSI_ITS ---
Subjective Subjective Date of Service: 09/01/20 Reason For Visit: psychosis Subjective Notes: Conditional Voluntary Healthcare Proxy: No Guardianship: Yes Medical Problems Affecting Mental Status: No Interim History: Pt allowed brief discussion regarding psychotropic medications. He would like to avoid an CASTRO, however, when we discussed not having to worry about daily po dosing for one med he was more interested. He is willing to accept iron supplementation, however, during our discussion pt appeared to be distracted by internal stimuli and perceptual alterations. Petition for changes have been filed. [place] [facility] we may begin treatment. [facility] has requested Fluphenazine Decanoate up to 50 mg q 2 weeks or Fluphenzaine Hydrochloride up to 40 mg daily. Alternates include Olanzapine up to 40 mg daily, Olanzapne Pamoate 150-300 mg q 2 weeks, Clozapine up to 900 mg daily, Risperdone up to 10 mg daily or Risperdal Consta up to 50 mg every 2 weeks. Medication Compliance: Intermittent Side effects from medications: No Attending Groups: No Review of Systems Psychiatric: Reports auditory hallucinations, Reports visual hallucinations and Reports hallucinations Mental Status Exam Mental Status Exam Patient Appearance: Fatigued and Disheveled Patient Orientation: Person Level of Consciousness: Awake and Sedated Patient Behavior: Guarded, Talkative and Suspicious Mood Description: Withdrawn Affect Description: Flat Patient Cognition Impaired: Yes Ability to Follow Directions: Fair Speech Pattern: Impoverished, Spontaneous Speech and Soft-Spoken Memory Description: Remote Impaired and Episodic Impaired Hallucinations: Auditory and Visual Delusions: Present Perceptual Disturbances: Derealization Thought Process: Distracted Thought Content: positive for Thought Blocking Depressive Symptoms: Diff. Making Decisions Judgement: Poor Diagnostics Vital Signs (24Hr): Vital Signs - 24 hr 08/31/20 18:00 09/01/20 06:00 Pulse Rate 101 H 96 Respiratory Rate 14 16 Blood Pressure 131/69 119/59 L Pulse Oximetry 96 96 Body Mass Index 39.4 Labs Results: 08/26/20 17:08 08/23/20 07:57 Imaging Radiology Impressions: ITS Impressions KUB X-Ray 07/22/20 17:13 IMPRESSION: Moderate volume of stool scattered in colon. No bowel obstruction. Medications Medications Current Medications Generic Name Dose Route Start Last Admin Trade Name Freq PRN Reason Stop Dose Admin Acetaminophen 650 mg 07/23/20 21:13 08/11/20 12:28 Acetaminophen 325 Mg Tablet PO 650 mg Q6H PRN Administration Headache/Pain Mild Scale (1-3) Al Hydroxide/Mg Hydroxide 30 ml 07/23/20 21:13 Magnesium Hydrox/Alum Hydrox 30 Ml Oral.Susp PO Q6H PRN Heartburn/Nausea Aspirin 81 mg 07/25/20 09:00 09/01/20 09:08 Aspirin Enteric Coated 81 Mg Tablet.Dr PO Not Given DAILY [facility] Atorvastatin Calcium 80 mg 07/23/20 21:00 08/31/20 21:32 Atorvastatin Calcium 80 Mg Tablet PO Not Given BEDTIME [facility] Clopidogrel Bisulfate 75 mg 07/23/20 17:00 09/01/20 09:08 Clopidogrel Bisulfate 75 Mg Tablet PO Not Given DAILY [facility] Clozapine 25 mg 08/15/20 09:00 09/01/20 09:08 Clozapine 25 Mg Tablet PO Not Given DAILY [facility] Enoxaparin Sodium 40 mg 07/29/20 15:15 08/31/20 15:05 Enoxaparin Sodium 40 Mg/0.4 Ml Syringe SUBCUT Not Given Q24H [facility] Finasteride 5 mg 07/23/20 17:00 09/01/20 09:08 Finasteride 5 Mg Tablet PO Not Given DAILY [facility] Hydroxyzine HCl 25 mg 07/23/20 21:13 08/17/20 03:00 Hydroxyzine Hcl 25 Mg Tablet PO 25 mg BEDTIME PRN Administration Anxiety Lisinopril 2.5 mg 08/18/20 09:00 09/01/20 09:08 Lisinopril 2.5 Mg Tablet PO Not Given DAILY [facility] Protocol Loperamide HCl 2 mg 07/24/20 15:43 07/24/20 15:54 Loperamide Hcl 2 Mg Capsule PO 2 mg Q4H PRN Administration Diarrhea Magnesium Hydroxide 30 ml 07/23/20 21:13 Milk Of Magnesia 30 Ml Oral.Susp PO DAILY PRN Constipation Metformin HCl 500 mg 08/14/20 17:00 09/01/20 09:08 Metformin Hcl 500 Mg Tablet PO Not Given BIDWM [facility] Metoprolol Succinate 75 mg 07/23/20 17:00 09/01/20 09:09 Metoprolol Succinate Er 25 Mg Tab.Er.24h PO Not Given DAILY [facility] Protocol Multi-Ingred Cream/Lotion/Oil/Oint 1 appl 07/24/20 21:00 09/01/20 09:09 Mineral Oil/Petrolatum,White 106 Gm Tube TOPICAL Not Given BID [facility] Patient Own 1 each 08/14/20 10:27 08/14/20 12:06 Medication (Thera PO 1 each Breath Dry Mouth Q4H PRN Administration Lozenge) Dry Mouth Patient Own 1 each 08/14/20 10:30 09/01/20 09:09 Medication (Biotene PO Not Given 15 Ml) BID [facility] Nystatin 1 appl 07/26/20 19:25 09/01/20 09:09 Nystatin Cream 15 Gm Tube TOPICAL Not Given DAILY [facility] Protocol Olanzapine 10 mg 08/21/20 21:07 Olanzapine Odt 10 Mg Tab.Rapdis TRANSLINGU BID PRN severe agitation,aggression Omeprazole 20 mg 07/24/20 06:30 09/01/20 06:14 Omeprazole 20 Mg Capsule.Dr PO Not Given DAILY@0630 [facility] Ondansetron HCl 4 mg 08/08/20 09:04 08/08/20 09:27 Ondansetron Odt 4 Mg Tab.Rapdis TRANSLINGU 4 mg Q6H PRN Administration Nausea Saliva Substitute 1 spray 08/12/20 15:06 Dry Mouth [place] 30 Ml [place] MUCOUS MEM Q2H PRN Dry Mouth Tamsulosin HCl 0.4 mg 07/25/20 21:00 08/31/20 21:33 Tamsulosin Hcl 0.4 Mg Capsule PO Not Given BEDTIME [facility] Trazodone HCl 50 mg 07/23/20 21:13 08/17/20 03:00 Trazodone Hcl 50 Mg Tablet PO 50 mg BEDTIME PRN Administration Insomnia Vitamin D 50 mcg 07/23/20 21:00 08/31/20 21:33 Cholecalciferol (Vitamin D3) 25 Mcg Tablet PO Not Given BEDTIME [facility] Allergies Allergies Allergy/AdvReac Type Severity Reaction Status Date / Time No Known Allergies Allergy Verified 07/21/20 16:39 Assessment & Plan Assessment & Plan (1) Schizophrenia, paranoid, subchronic with acute exacerbation: Status: Acute Code(s): F20.0 - Paranoid schizophrenia Assessment and Plan: Clozaril compliance is inconsistent currently. Will keep dosage at 25 mg to avoid adverse response. Jesse's ammendment process continues to move forward. Continue 0ne to One Support pt as he will allow. [place] building. Continue to offer items to impr ove comfort and well being. get stool for guaiac .agreed to accept FeSo4 324 mg daily Greater than 50% of the session was spent on counseling and/or coordination of care Reason for contiued inpatient stay Substantial Risk for: harm to self, harm to others, inability to function and rapid decompensation
[2020-09-01 18:00] VITALS: PULSE 98; RESP 18; TEMP 36.2; O2SAT 97
[2020-09-02 06:00] VITALS: BP 141/67; PULSE 102; RESP 20; TEMP 36.3; O2SAT 94
--- NOTE | 2020-09-02 16:42 | HO.PSYCHPN ---
Subjective Subjective Date of Service: 09/02/20 Reason For Visit: psychosis Subjective Notes: Conditional Voluntary Healthcare Proxy: No Guardianship: Yes (pending [employer] addendum) Medical Problems Affecting Mental Status: No Interim History: Pt continues with precipitous actions-doing push-ups, running, responding to internal stimuli. Refusal of medication continues. One to one special in place. Pt's [employer] [place] amendment is filed and remains pending. Pt is approachable by tw today-he does not get up to leave the area. He engages in brief conversation appropriately then is silent. He was able to engage without fear for 3 interactions today. Medication Compliance: No Side effects from medications: No Attending Groups: No Review of Systems Review of Systems Yes Unobtainable due to mental status Reports behavioral changes Psychiatric: Reports abnormal sleep pattern, Reports anxiety, Reports behavioral changes, Reports change in appetite, Reports difficulty concentrating, Reports auditory hallucinations, Reports anhedonia and Reports suicidal ideation (no SI) Mental Status Exam Mental Status Exam Patient Appearance: Disheveled Patient Orientation: Person, Place, Time and Situation Level of Consciousness: Alert Patient Behavior: Appropriate, Guarded, Talkative, Cooperative, Suspicious, Anxious, Fearful, Resistive to Care, Avoidant, Distractible and Poor Eye Contact Mood Description: Constricted Affect Description: Constricted Patient Cognition Impaired: Yes Ability to Follow Directions: Fair Speech Pattern: Spontaneous Speech, Soft-Spoken and Delayed Memory Description: Remote Impaired and Episodic Impaired Hallucinations: Auditory Delusions: Present Perceptual Disturbances: Derealization Thought Process: Illogical and Distracted Thought Content: positive for Preoccupation, positive for Thought Blocking and positive for Tangential Depressive Symptoms: Diff. Making Decisions, Difficulty Sleeping, Changes in Appetite, Thoughts of /Suicide (no SI) and Difficulty Concentrating Abnormal Motor Activity Signs and Symptoms: Restlessness Judgement: Poor Diagnostics Vital Signs (24Hr): Vital Signs - 24 hr 09/01/20 18:00 09/02/20 06:00 Temperature 97.2 F 97.4 F Pulse Rate 98 102 H Respiratory Rate 18 20 Blood Pressure 141/67 H Pulse Oximetry 97 94 Body Mass Index 39.4 Labs Results: 08/26/20 17:08 08/23/20 07:57 Imaging Radiology Impressions: ITS Impressions KUB X-Ray 07/22/20 17:13 IMPRESSION: Moderate volume of stool scattered in colon. No bowel obstruction. Medications Medications Current Medications Generic Name Dose Route Start Last Admin Trade Name Ponchoq PRN Reason Stop Dose Admin Acetaminophen 650 mg 07/23/20 21:13 08/11/20 12:28 Acetaminophen 325 Mg Tablet PO 650 mg Q6H PRN Administration Headache/Pain Mild Scale (1-3) Al Hydroxide/Mg Hydroxide 30 ml 07/23/20 21:13 Magnesium Hydrox/Alum Hydrox 30 Ml Oral.Susp PO Q6H PRN Heartburn/Nausea Aspirin 81 mg 07/25/20 09:00 09/02/20 09:27 Aspirin Enteric Coated 81 Mg Tablet. PO Not Given DAILY [facility] Atorvastatin Calcium 80 mg 07/23/20 21:00 09/01/20 21:27 Atorvastatin Calcium 80 Mg Tablet PO Not Given BEDTIME [facility] Clopidogrel Bisulfate 75 mg 07/23/20 17:00 09/02/20 09:27 Clopidogrel Bisulfate 75 Mg Tablet PO Not Given DAILY [facility] Clozapine 25 mg 08/15/20 09:00 09/02/20 09:28 Clozapine 25 Mg Tablet PO Not Given DAILY [facility] Enoxaparin Sodium 40 mg 07/29/20 15:15 09/02/20 15:03 Enoxaparin Sodium 40 Mg/0.4 Ml Syringe SUBCUT Not Given Q24H [facility] Ferrous Sulfate 324 mg 09/02/20 09:00 09/02/20 09:28 Ferrous Sulfate 324 Mg Tablet. PO Not Given DAILY [facility] Finasteride 5 mg 07/23/20 17:00 09/02/20 09:28 Finasteride 5 Mg Tablet PO Not Given DAILY [facility] Hydroxyzine HCl 25 mg 07/23/20 21:13 08/17/20 03:00 Hydroxyzine Hcl 25 Mg Tablet PO 25 mg BEDTIME PRN Administration Anxiety Lisinopril 2.5 mg 08/18/20 09:00 09/02/20 09:28 Lisinopril 2.5 Mg Tablet PO Not Given DAILY [facility] Protocol Loperamide HCl 2 mg 07/24/20 15:43 07/24/20 15:54 Loperamide Hcl 2 Mg Capsule PO 2 mg Q4H PRN Administration Diarrhea Magnesium Hydroxide 30 ml 07/23/20 21:13 Milk Of Magnesia 30 Ml Oral.Susp PO DAILY PRN Constipation Metformin HCl 500 mg 08/14/20 17:00 09/02/20 09:27 Metformin Hcl 500 Mg Tablet PO Not Given BIDWM [facility] Metoprolol Succinate 75 mg 07/23/20 17:00 09/02/20 09:28 Metoprolol Succinate Er 25 Mg Tab.Er.24h PO Not Given DAILY [facility] Protocol Multi-Ingred Cream/Lotion/Oil/Oint 1 appl 07/24/20 21:00 09/02/20 09:28 Mineral Oil/Petrolatum,White 106 Gm Tube TOPICAL Not Given BID [facility] Patient Own 1 each 08/14/20 10:27 08/14/20 12:06 Medication (Thera PO 1 each Breath Dry Mouth Q4H PRN Administration Lozenge) Dry Mouth Patient Own 1 each 08/14/20 10:30 09/02/20 09:29 Medication (Biotene PO Not Given 15 Ml) BID [facility] Nystatin 1 appl 07/26/20 19:25 09/02/20 09:28 Nystatin Cream 15 Gm Tube TOPICAL Not Given DAILY [facility] Protocol Olanzapine 10 mg 08/21/20 21:07 Olanzapine Odt 10 Mg Tab.Rapdis TRANSLINGU BID PRN severe agitation,aggression Omeprazole 20 mg 07/24/20 06:30 09/02/20 09:26 Omeprazole 20 Mg Capsule.Dr PO Not Given DAILY@0630 [facility] Ondansetron HCl 4 mg 08/08/20 09:04 08/08/20 09:27 Ondansetron Odt 4 Mg Tab.Rapdis TRANSLINGU 4 mg Q6H PRN Administration Nausea Saliva Substitute 1 spray 08/12/20 15:06 Dry Mouth [place] 30 Ml [place] MUCOUS MEM Q2H PRN Dry Mouth Tamsulosin HCl 0.4 mg 07/25/20 21:00 09/01/20 21:27 Tamsulosin Hcl 0.4 Mg Capsule PO Not Given BEDTIME [facility] Trazodone HCl 50 mg 07/23/20 21:13 08/17/20 03:00 Trazodone Hcl 50 Mg Tablet PO 50 mg BEDTIME PRN Administration Insomnia Vitamin D 50 mcg 07/23/20 21:00 09/01/20 21:27 Cholecalciferol (Vitamin D3) 25 Mcg Tablet PO Not Given BEDTIME [facility] Allergies Allergies Allergy/AdvReac Type Severity Reaction Status Date / Time No Known Allergies Allergy Verified 07/21/20 16:39 Assessment & Plan Assessment & Plan (1) Schizophrenia, paranoid, subchronic with acute exacerbation: Status: Acute Code(s): F20.0 - Paranoid schizophrenia Assessment and Plan: Clozaril compliance is inconsistent currently. Will keep dosage at 25 mg to avoid adverse response. Jesse's ammendment process continues to move forward. Paperwork is submitted. Continue 0ne to One Support pt as he will allow. [place] building. Continue to offer items to improve comfort and well being. Agreed to accept FeSo4 324 mg daily- but refuses when offered. Greater than 50% of the session was spent on counseling and/or coordination of care Reason for contiued inpatient stay Substantial Risk for: harm to self, harm to others, inability to function, rapid decompensation and med/psych decompensation
--- NOTE | 2020-09-03 14:05 | HO.PSYCHPN ---
Subjective Subjective Date of Service: 09/03/20 Reason For Visit: psychosis Subjective Notes: Conditional Voluntary Healthcare Proxy: No Guardianship: Yes (pending [facility] addendum) Medical Problems Affecting Mental Status: No Interim History: Team reports pt has refused [facility]-continues to refuse medications, treatment. 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 Pt told his primary nurse today that he is aware that the [employer] academy is hiring and he was planning to stop by and assess this opportunity for himself. Allowed two interactions with tw today-discussed brother's upcoming visit. Encouraged self-care for pt so he may enjoy the visit and pt agreed. Declines psychotropic medications at the present time as he believes they are an unhealthy choice for him. Medication Compliance: No Side effects from medications: No Attending Groups: No Review of Systems Reports behavioral changes and Reports confusion Psychiatric: Reports abnormal sleep pattern, Reports anxiety, Reports behavioral changes, Reports change in appetite, Reports confusion, Reports depression, Reports difficulty concentrating, Reports auditory hallucinations, Reports irritability, Reports mood swings and Reports paranoia Mental Status Exam Mental Status Exam Patient Appearance: Disheveled Patient Orientation: Person and Place Level of Consciousness: Alert Patient Behavior: Appropriate, Guarded, Talkative, Cooperative, Suspicious, Restless, Anxious, Fearful, Resistive to Care, Avoidant, Fatigued, Distractible, Isolative, Impulsive and Poor Eye Contact Mood Description: Constricted Affect Description: Constricted Patient Cognition Impaired: Yes Ability to Follow Directions: Fair Speech Pattern: Spontaneous Speech, Soft-Spoken and Delayed Memory Description: Remote Impaired and Episodic Impaired Hallucinations: Auditory Delusions: Present Perceptual Disturbances: Derealization Thought Process: Illogical, Distracted, Rumination and Confusion Thought Content: positive for Circumstantial, positive for Perseveration, positive for Preoccupation, positive for Thought Blocking, positive for Tangential, positive for Disorganized and positive for Suicidal Ideation (no SI) Depressive Symptoms: Diff. Making Decisions, Difficulty Sleeping, Changes in Appetite, Significant Weight Loss, Low Self Esteem and Difficulty Concentrating Judgement: Poor Diagnostics Vital Signs (24Hr): Body Mass Index 39.4 Labs Results: 08/26/20 17:08 08/23/20 07:57 Imaging Radiology Impressions: ITS Impressions KUB X-Ray 07/22/20 17:13 IMPRESSION: Moderate volume of stool scattered in colon. No bowel obstruction. Medications Medications Current Medications Generic Name Dose Route Start Last Admin Trade Name Ponchoq PRN Reason Stop Dose Admin Acetaminophen 650 mg 07/23/20 21:13 08/11/20 12:28 Acetaminophen 325 Mg Tablet PO 650 mg Q6H PRN Administration Headache/Pain Mild Scale (1-3) Al Hydroxide/Mg Hydroxide 30 ml 07/23/20 21:13 Magnesium Hydrox/Alum Hydrox 30 Ml Oral.Susp PO Q6H PRN Heartburn/Nausea Aspirin 81 mg 07/25/20 09:00 09/03/20 08:03 Aspirin Enteric Coated 81 Mg Tablet. PO Not Given DAILY [facility] Atorvastatin Calcium 80 mg 07/23/20 21:00 09/02/20 21:30 Atorvastatin Calcium 80 Mg Tablet PO Not Given BEDTIME [facility] Clopidogrel Bisulfate 75 mg 07/23/20 17:00 09/03/20 08:03 Clopidogrel Bisulfate 75 Mg Tablet PO Not Given DAILY [facility] Clozapine 25 mg 08/15/20 09:00 09/03/20 08:03 Clozapine 25 Mg Tablet PO Not Given DAILY [facility] Enoxaparin Sodium 40 mg 07/29/20 15:15 09/02/20 15:03 Enoxaparin Sodium 40 Mg/0.4 Ml Syringe SUBCUT Not Given Q24H [facility] Ferrous Sulfate 324 mg 09/02/20 09:00 09/03/20 08:03 Ferrous Sulfate 324 Mg Tablet. PO Not Given DAILY [facility] Finasteride 5 mg 07/23/20 17:00 09/03/20 08:04 Finasteride 5 Mg Tablet PO Not Given DAILY [facility] Hydroxyzine HCl 25 mg 07/23/20 21:13 08/17/20 03:00 Hydroxyzine Hcl 25 Mg Tablet PO 25 mg BEDTIME PRN Administration Anxiety Lisinopril 2.5 mg 08/18/20 09:00 09/03/20 08:04 Lisinopril 2.5 Mg Tablet PO Not Given DAILY [facility] Protocol Loperamide HCl 2 mg 07/24/20 15:43 07/24/20 15:54 Loperamide Hcl 2 Mg Capsule PO 2 mg Q4H PRN Administration Diarrhea Magnesium Hydroxide 30 ml 07/23/20 21:13 Milk Of Magnesia 30 Ml Oral.Susp PO DAILY PRN Constipation Metformin HCl 500 mg 08/14/20 17:00 09/03/20 08:03 Metformin Hcl 500 Mg Tablet PO Not Given BIDWM [facility] Metoprolol Succinate 75 mg 07/23/20 17:00 09/03/20 08:04 Metoprolol Succinate Er 25 Mg Tab.Er.24h PO Not Given DAILY [facility] Protocol Multi-Ingred Cream/Lotion/Oil/Oint 1 appl 07/24/20 21:00 09/03/20 08:04 Mineral Oil/Petrolatum,White 106 Gm Tube TOPICAL Not Given BID [facility] Patient Own 1 each 08/14/20 10:27 08/14/20 12:06 Medication (Thera PO 1 each Breath Dry Mouth Q4H PRN Administration Lozenge) Dry Mouth Patient Own 1 each 08/14/20 10:30 09/03/20 08:04 Medication (Biotene PO Not Given 15 Ml) BID [facility] Nystatin 1 appl 07/26/20 19:25 09/03/20 08:04 Nystatin Cream 15 Gm Tube TOPICAL Not Given DAILY [facility] Protocol Olanzapine 10 mg 08/21/20 21:07 Olanzapine Odt 10 Mg Tab.Rapdis TRANSLINGU BID PRN severe agitation,aggression Omeprazole 20 mg 07/24/20 06:30 09/03/20 08:03 Omeprazole 20 Mg Capsule.Dr PO Not Given DAILY@0630 [facility] Ondansetron HCl 4 mg 08/08/20 09:04 08/08/20 09:27 Ondansetron Odt 4 Mg Tab.Rapdis TRANSLINGU 4 mg Q6H PRN Administration Nausea Saliva Substitute 1 spray 08/12/20 15:06 Dry Mouth [place] 30 Ml [place] MUCOUS MEM Q2H PRN Dry Mouth Tamsulosin HCl 0.4 mg 07/25/20 21:00 09/02/20 21:31 Tamsulosin Hcl 0.4 Mg Capsule PO Not Given BEDTIME [facility] Trazodone HCl 50 mg 07/23/20 21:13 08/17/20 03:00 Trazodone Hcl 50 Mg Tablet PO 50 mg BEDTIME PRN Administration Insomnia Vitamin D 50 mcg 07/23/20 21:00 09/02/20 21:30 Cholecalciferol (Vitamin D3) 25 Mcg Tablet PO Not Given BEDTIME [facility] Allergies Allergies Allergy/AdvReac Type Severity Reaction Status Date / Time No Known Allergies Allergy Verified 07/21/20 16:39 Assessment & Plan Assessment & Plan (1) Schizophrenia, paranoid, subchronic with acute exacerbation: Status: Acute Code(s): F20.0 - Paranoid schizophrenia Assessment and Plan: Clozaril compliance is inconsistent currently. Will keep dosage at 25 mg to avoid adverse response. Jesse's ammendment process continues to move forward. Paperwork is submitted to the court. Continue 0ne to One Refuses [facility] today. Support pt as he will allow. [place] building. Continue to offer items to improve comfort and well being. Greater than 50% of the session was spent on counseling and/or coordination of care Reason for contiued inpatient stay Substantial Risk for: harm to self, harm to others, inability to function, rapid decompensation and med/psych decompensation
[2020-09-04 07:00] VITALS: BMI 39.2
[2020-09-04] MEDS: Omeprazole 20 MG CAPSULE.DR PO (08:01)
--- NOTE | 2020-09-04 15:55 | P.PNPSI_ITS ---
Subjective Subjective Date of Service: 09/04/20 Reason For Visit: psychosis Subjective Notes: Conditional Voluntary Healthcare Proxy: No Guardianship: No Medical Problems Affecting Mental Status: No Interim History: Juan continues on one to one. Blood pressure is elevated. Pt refuses medications. Today he is observed intermittently jogging up and down the [place]. His ambulation, balance appear intact. He continues to respond to internal stimuli. No signs of agitation. He is somewhat aware of his external environment. He does interact briefly and socially, but avoids discussion of his treatment, medicines and care. He will end conversations when these topics are approached. Medication Compliance: No Side effects from medications: No Attending Groups: No Review of Systems Reports behavioral changes Psychiatric: Reports abnormal sleep pattern, Reports anxiety, Reports behavioral changes, Reports change in appetite, Reports difficulty concentrating, Reports auditory hallucinations, Reports irritability, Reports paranoia and Reports suicidal ideation (no SI) Mental Status Exam Mental Status Exam Patient Appearance: Appropriate Patient Orientation: Person, Place, Time and Situation Level of Consciousness: Awake and Alert Patient Behavior: Guarded, Suspicious, Restless and Resistive to Care Mood Description: Calm, Suspicious, Withdrawn and Constricted Affect Description: Constricted and Flat Patient Cognition Impaired: Yes Ability to Follow Directions: Fair Speech Pattern: Spontaneous Speech Memory Description: Remote Impaired and Episodic Impaired Hallucinations: Auditory Delusions: Present Perceptual Disturbances: Derealization Thought Process: Illogical Thought Content: positive for Thought Blocking Depressive Symptoms: Diff. Making Decisions and Difficulty Concentrating Abnormal Motor Activity Signs and Symptoms: Restlessness Judgement: Poor Diagnostics Vital Signs (24Hr): Body Mass Index 39.2 Labs Results: 08/26/20 17:08 08/23/20 07:57 Imaging Radiology Impressions: ITS Impressions KUB X-Ray 07/22/20 17:13 IMPRESSION: Moderate volume of stool scattered in colon. No bowel obstruction. Medications Medications Current Medications Generic Name Dose Route Start Last Admin Trade Name Freq PRN Reason Stop Dose Admin Acetaminophen 650 mg 07/23/20 21:13 08/11/20 12:28 Acetaminophen 325 Mg Tablet PO 650 mg Q6H PRN Administration Headache/Pain Mild Scale (1-3) Al Hydroxide/Mg Hydroxide 30 ml 07/23/20 21:13 Magnesium Hydrox/Alum Hydrox 30 Ml Oral.Susp PO Q6H PRN Heartburn/Nausea Aspirin 81 mg 07/25/20 09:00 09/04/20 08:29 Aspirin Enteric Coated 81 Mg Tablet. PO Not Given DAILY [facility] Atorvastatin Calcium 80 mg 07/23/20 21:00 09/03/20 22:43 Atorvastatin Calcium 80 Mg Tablet PO Not Given BEDTIME [facility] Clopidogrel Bisulfate 75 mg 07/23/20 17:00 09/04/20 08:29 Clopidogrel Bisulfate 75 Mg Tablet PO Not Given DAILY [facility] Clozapine 25 mg 08/15/20 09:00 09/04/20 08:29 Clozapine 25 Mg Tablet PO Not Given DAILY [facility] Enoxaparin Sodium 40 mg 07/29/20 15:15 09/03/20 14:30 Enoxaparin Sodium 40 Mg/0.4 Ml Syringe SUBCUT Not Given Q24H [facility] Ferrous Sulfate 324 mg 09/02/20 09:00 09/04/20 08:29 Ferrous Sulfate 324 Mg Tablet. PO Not Given DAILY [facility] Finasteride 5 mg 07/23/20 17:00 09/04/20 08:29 Finasteride 5 Mg Tablet PO Not Given DAILY [facility] Hydroxyzine HCl 25 mg 07/23/20 21:13 08/17/20 03:00 Hydroxyzine Hcl 25 Mg Tablet PO 25 mg BEDTIME PRN Administration Anxiety Lisinopril 2.5 mg 08/18/20 09:00 09/04/20 08:29 Lisinopril 2.5 Mg Tablet PO Not Given DAILY [facility] Protocol Loperamide HCl 2 mg 07/24/20 15:43 07/24/20 15:54 Loperamide Hcl 2 Mg Capsule PO 2 mg Q4H PRN Administration Diarrhea Magnesium Hydroxide 30 ml 07/23/20 21:13 Milk Of Magnesia 30 Ml Oral.Susp PO DAILY PRN Constipation Metformin HCl 500 mg 08/14/20 17:00 09/04/20 08:28 Metformin Hcl 500 Mg Tablet PO Not Given BIDWM [facility] Metoprolol Succinate 75 mg 07/23/20 17:00 09/04/20 08:30 Metoprolol Succinate Er 25 Mg Tab.Er.24h PO Not Given DAILY [facility] Protocol Multi-Ingred Cream/Lotion/Oil/Oint 1 appl 07/24/20 21:00 09/04/20 08:30 Mineral Oil/Petrolatum,White 106 Gm Tube TOPICAL Not Given BID [facility] Patient Own 1 each 08/14/20 10:27 08/14/20 12:06 Medication (Thera PO 1 each Breath Dry Mouth Q4H PRN Administration Lozenge) Dry Mouth Patient Own 1 each 08/14/20 10:30 09/04/20 08:30 Medication (Biotene PO Not Given 15 Ml) BID [facility] Nystatin 1 appl 07/26/20 19:25 09/04/20 08:30 Nystatin Cream 15 Gm Tube TOPICAL Not Given DAILY [facility] Protocol Olanzapine 10 mg 08/21/20 21:07 Olanzapine Odt 10 Mg Tab.Rapdis TRANSLINGU BID PRN severe agitation,aggression Omeprazole 20 mg 07/24/20 06:30 09/04/20 08:01 Omeprazole 20 Mg Capsule. PO 20 mg DAILY@0630 [facility] Administration Ondansetron HCl 4 mg 08/08/20 09:04 08/08/20 09:27 Ondansetron Odt 4 Mg Tab.Rapdis TRANSLINGU 4 mg Q6H PRN Administration Nausea Saliva Substitute 1 spray 08/12/20 15:06 Dry Mouth [place] 30 Ml [place] MUCOUS MEM Q2H PRN Dry Mouth Tamsulosin HCl 0.4 mg 07/25/20 21:00 09/03/20 22:42 Tamsulosin Hcl 0.4 Mg Capsule PO Not Given BEDTIME [facility] Trazodone HCl 50 mg 07/23/20 21:13 08/17/20 03:00 Trazodone Hcl 50 Mg Tablet PO 50 mg BEDTIME PRN Administration Insomnia Vitamin D 50 mcg 07/23/20 21:00 09/03/20 22:43 Cholecalciferol (Vitamin D3) 25 Mcg Tablet PO Not Given BEDTIME [facility] Allergies Allergies Allergy/AdvReac Type Severity Reaction Status Date / Time No Known Allergies Allergy Verified 07/21/20 16:39 Assessment & Plan Assessment & Plan (1) Schizophrenia, paranoid, subchronic with acute exacerbation: Status: Acute Code(s): F20.0 - Paranoid schizophrenia Assessment and Plan: Clozaril compliance is inconsistent currently. Will keep dosage at 25 mg to avoid adverse response. Jesse's ammendment process continues to move forward. Paperwork is submitted to the court. Continue 0ne to One Support pt as he will allow. [place] building. Continue to offer items to improve comfort and well being. Greater than 50% of the session was spent on counseling and/or coordination of care Reason for contiued inpatient stay Substantial Risk for: harm to self, harm to others, inability to function, rapid decompensation and med/psych decompensation
[2020-09-05 07:56] LABS: Glucose, Whole Blood 91 mg/dL (60-115)
--- NOTE | 2020-09-05 17:05 | HO.PSYCHPN ---
Subjective Subjective Date of Service: 09/05/20 Reason For Visit: psychosis Subjective Notes: Conditional Voluntary Healthcare Proxy: No Guardianship: Yes (pending Jesse's update) Medical Problems Affecting Mental Status: Yes Interim History: Juan continues to decline medications and interventions of care. He is preoccupied with exercise, stating voices are telling him to exercise. He has belief that he is preparing for training for [employer]. He continues on one to one special. Tentative date for approval of [place] amendment in 09/19/20. Pt's brother plans to visit next week. Today he is distant, vague when tw approaches with fearful eye contact. Medication Compliance: No Side effects from medications: No Attending Groups: No Review of Systems Review of Systems Yes Unobtainable due to mental status Reports behavioral changes and Reports confusion Psychiatric: Reports abnormal sleep pattern, Reports anxiety, Reports behavioral changes, Reports change in appetite, Reports confusion, Reports depression, Reports difficulty concentrating, Reports auditory hallucinations, Reports irritability, Reports anhedonia, Reports mood swings, Reports paranoia, Reports visual hallucinations and Reports hallucinations Mental Status Exam Mental Status Exam Patient Appearance: Disheveled Patient Orientation: Person Level of Consciousness: Awake and Alert Patient Behavior: Guarded, Hyperactive, Suspicious, Anxious, Fearful, Resistive to Care, Distractible, Uncooperative and Poor Eye Contact Mood Description: Constricted and Labile Affect Description: Constricted and Labile Patient Cognition Impaired: Yes Ability to Follow Directions: Poor Speech Pattern: Perseverating, Spontaneous Speech, Soft-Spoken, Cofabulation and Long Pauses Memory Description: Remote Impaired and Episodic Impaired Hallucinations: Auditory Delusions: Being Controlled, Paranoid Ideation and Present Perceptual Disturbances: Depersonalization and Derealization Thought Process: Disoriented, Illogical and Distracted Thought Content: positive for Thought Blocking, positive for Tangential and positive for Disorganized Depressive Symptoms: Insomnia, Diff. Making Decisions, Increased Irritability, Difficulty Sleeping, Changes in Appetite, Significant Weight Loss, Isolating-Friends/Family and Difficulty Concentrating Abnormal Motor Activity Signs and Symptoms: Restlessness Judgement: Poor Diagnostics Vital Signs (24Hr): Body Mass Index 39.2 Labs Results: 08/26/20 17:08 08/23/20 07:57 Labs: Laboratory Results - last 48 hr 09/05/20 07:51 POC Glucose 91 Imaging Radiology Impressions: ITS Impressions KUB X-Ray 07/22/20 17:13 IMPRESSION: Moderate volume of stool scattered in colon. No bowel obstruction. Medications Medications Current Medications Generic Name Dose Route Start Last Admin Trade Name Jaret PRN Reason Stop Dose Admin Acetaminophen 650 mg 07/23/20 21:13 08/11/20 12:28 Acetaminophen 325 Mg Tablet PO 650 mg Q6H PRN Administration Headache/Pain Mild Scale (1-3) Al Hydroxide/Mg Hydroxide 30 ml 07/23/20 21:13 Magnesium Hydrox/Alum Hydrox 30 Ml Oral.Susp PO Q6H PRN Heartburn/Nausea Aspirin 81 mg 07/25/20 09:00 09/05/20 07:55 Aspirin Enteric Coated 81 Mg Tablet. PO Not Given DAILY [facility] Atorvastatin Calcium 80 mg 07/23/20 21:00 09/04/20 23:51 Atorvastatin Calcium 80 Mg Tablet PO Not Given BEDTIME [facility] Clopidogrel Bisulfate 75 mg 07/23/20 17:00 09/05/20 07:56 Clopidogrel Bisulfate 75 Mg Tablet PO Not Given DAILY [facility] Clozapine 25 mg 08/15/20 09:00 09/05/20 07:56 Clozapine 25 Mg Tablet PO Not Given DAILY [facility] Enoxaparin Sodium 40 mg 07/29/20 15:15 09/05/20 14:12 Enoxaparin Sodium 40 Mg/0.4 Ml Syringe SUBCUT Not Given Q24H [facility] Ferrous Sulfate 324 mg 09/02/20 09:00 09/05/20 07:56 Ferrous Sulfate 324 Mg Tablet. PO Not Given DAILY [facility] Finasteride 5 mg 07/23/20 17:00 09/05/20 07:56 Finasteride 5 Mg Tablet PO Not Given DAILY [facility] Hydroxyzine HCl 25 mg 07/23/20 21:13 08/17/20 03:00 Hydroxyzine Hcl 25 Mg Tablet PO 25 mg BEDTIME PRN Administration Anxiety Lisinopril 2.5 mg 08/18/20 09:00 09/05/20 07:56 Lisinopril 2.5 Mg Tablet PO Not Given DAILY [facility] Protocol Loperamide HCl 2 mg 07/24/20 15:43 07/24/20 15:54 Loperamide Hcl 2 Mg Capsule PO 2 mg Q4H PRN Administration Diarrhea Magnesium Hydroxide 30 ml 07/23/20 21:13 Milk Of Magnesia 30 Ml Oral.Susp PO DAILY PRN Constipation Metformin HCl 500 mg 08/14/20 17:00 09/05/20 16:32 Metformin Hcl 500 Mg Tablet PO Not Given BIDWM [facility] Metoprolol Succinate 75 mg 07/23/20 17:00 09/05/20 07:57 Metoprolol Succinate Er 25 Mg Tab.Er.24h PO Not Given DAILY [facility] Protocol Multi-Ingred Cream/Lotion/Oil/Oint 1 appl 07/24/20 21:00 09/05/20 07:57 Mineral Oil/Petrolatum,White 106 Gm Tube TOPICAL Not Given BID [facility] Patient Own 1 each 08/14/20 10:27 08/14/20 12:06 Medication (Thera PO 1 each Breath Dry Mouth Q4H PRN Administration Lozenge) Dry Mouth Patient Own 1 each 08/14/20 10:30 09/05/20 07:57 Medication (Biotene PO Not Given 15 Ml) BID [facility] Nystatin 1 appl 07/26/20 19:25 09/05/20 07:57 Nystatin Cream 15 Gm Tube TOPICAL Not Given DAILY [facility] Protocol Olanzapine 10 mg 08/21/20 21:07 Olanzapine Odt 10 Mg Tab.Rapdis TRANSLINGU BID PRN severe agitation,aggression Omeprazole 20 mg 07/24/20 06:30 09/05/20 07:55 Omeprazole 20 Mg Capsule.Dr PO Not Given DAILY@0630 [facility] Ondansetron HCl 4 mg 08/08/20 09:04 08/08/20 09:27 Ondansetron Odt 4 Mg Tab.Rapdis TRANSLINGU 4 mg Q6H PRN Administration Nausea Saliva Substitute 1 spray 08/12/20 15:06 Dry Mouth [place] 30 Ml [place] MUCOUS MEM Q2H PRN Dry Mouth Tamsulosin HCl 0.4 mg 07/25/20 21:00 09/04/20 23:51 Tamsulosin Hcl 0.4 Mg Capsule PO Not Given BEDTIME [facility] Trazodone HCl 50 mg 07/23/20 21:13 08/17/20 03:00 Trazodone Hcl 50 Mg Tablet PO 50 mg BEDTIME PRN Administration Insomnia Vitamin D 50 mcg 07/23/20 21:00 09/04/20 23:51 Cholecalciferol (Vitamin D3) 25 Mcg Tablet PO Not Given BEDTIME [facility] Allergies Allergies Allergy/AdvReac Type Severity Reaction Status Date / Time No Known Allergies Allergy Verified 07/21/20 16:39 Assessment & Plan Assessment & Plan (1) Schizophrenia, paranoid, subchronic with acute exacerbation: Status: Acute Code(s): F20.0 - Paranoid schizophrenia Assessment and Plan: Clozaril compliance is inconsistent currently. Will keep dosage at 25 mg to avoid adverse response. Jesse's ammendment process continues to move forward. Paperwork is submitted to the court. Continue 0ne to [facility] Support pt as he will allow. [place] building. Continue to offer items to improve comfort and well being. Greater than 50% of the session was spent on counseling and/or coordination of care Reason for contiued inpatient stay Substantial Risk for: harm to self, harm to others, inability to function, rapid decompensation and med/psych decompensation
[2020-09-05 18:00] VITALS: BP 124/63; PULSE 126; TEMP 37.1
--- NOTE | 2020-09-06 14:11 | P.PNPSI_ITS ---
Subjective Subjective Date of Service: 09/06/20 Reason For Visit: psychosis Interim History: Juan continues to decline medications and interventions of care. He refused meds and labs today. He is quietly fearful and hostile upon approach; declines extensive conversation; He is preoccupied with exercise, stating voices are telling him to exercise. He has belief that he is preparing for training for [employer]. He continues on one to one special. Tentative date for approval of [place] amendment in 09/19/20. Pt's brother plans to visit next week. Review of Systems Review of Systems Gen: no fever Resp: no sob, no cough CV: no chest, no DODD, +leg edema GI: No n/v, no abd pain Neuro: No confusion Yes all other systems are reviewed and are negative and Unobtainable due to mental status Constitutional: Reports anorexia, Reports daytime sleepiness, Reports difficulty sleeping, Reports fatigue, Reports lethargy, Reports malaise, Reports poor appetite and Reports other (dehydration) Cardiovascular: Reports no additional cardiovascular complaints, Denies chest pain, Reports pedal edema, Reports leg edema and Denies lightheadedness Gastrointestinal: Reports no additional gastrointestinal complaints, Reports abdominal pain, Reports constipation and Reports nausea (Zofran prn ordered) Genitourinary: Reports other (SCOT sx) Reports behavioral changes, Reports confusion and Reports memory loss Psychiatric: Reports abnormal sleep pattern, Reports anxiety, Reports behavioral changes, Reports change in appetite, Reports confusion, Reports depression, Reports difficulty concentrating, Reports auditory hallucinations, Reports hopelessness, Reports irritability, Reports anhedonia, Reports memory loss, Reports mood swings, Reports paranoia, Reports visual hallucinations, Reports hallucinations and Reports suicidal ideation (no SI) Endocrine: Reports fatigue Mental Status Exam Mental Status Exam Narrative: lyng in reclining chair , twists around at times, various facial and limb movements consistent with TD Patient Appearance: Disheveled Patient Orientation: Person Level of Consciousness: Awake and Alert Patient Behavior: Guarded, Hyperactive, Suspicious, Anxious, Fearful, Resistive to Care, Distractible, Uncooperative and Poor Eye Contact Behavior Comments: actually makes eye contact here and there- appears fearful Mood Description: Constricted and Labile Affect Description: Constricted and Labile Patient Cognition Impaired: Yes Ability to Follow Directions: Poor Speech Pattern: Perseverating, Spontaneous Speech, Soft-Spoken, Cofabulation and Long Pauses Memory Description: Remote Impaired and Episodic Impaired Diagnostics Vital Signs (24Hr): Vital Signs - 24 hr 09/05/20 18:00 Temperature 98.8 F Pulse Rate 126 H Blood Pressure 124/63 Body Mass Index 39.2 Labs Results: 08/26/20 17:08 08/23/20 07:57 Labs: Laboratory Results - last 48 hr 09/05/20 07:51 POC Glucose 91 Imaging Radiology Impressions: ITS Impressions KUB X-Ray 07/22/20 17:13 IMPRESSION: Moderate volume of stool scattered in colon. No bowel obstruction. Medications Medications Current Medications Generic Name Dose Route Start Last Admin Trade Name Freq PRN Reason Stop Dose Admin Acetaminophen 650 mg 07/23/20 21:13 08/11/20 12:28 Acetaminophen 325 Mg Tablet PO 650 mg Q6H PRN Administration Headache/Pain Mild Scale (1-3) Al Hydroxide/Mg Hydroxide 30 ml 07/23/20 21:13 Magnesium Hydrox/Alum Hydrox 30 Ml Oral.Susp PO Q6H PRN Heartburn/Nausea Aspirin 81 mg 07/25/20 09:00 09/06/20 09:00 Aspirin Enteric Coated 81 Mg Tablet. PO Not Given DAILY [facility] Atorvastatin Calcium 80 mg 07/23/20 21:00 09/05/20 20:44 Atorvastatin Calcium 80 Mg Tablet PO Not Given BEDTIME [facility] Clopidogrel Bisulfate 75 mg 07/23/20 17:00 09/06/20 09:00 Clopidogrel Bisulfate 75 Mg Tablet PO Not Given DAILY [facility] Clozapine 25 mg 08/15/20 09:00 09/06/20 09:00 Clozapine 25 Mg Tablet PO Not Given DAILY [facility] Enoxaparin Sodium 40 mg 07/29/20 15:15 09/05/20 14:12 Enoxaparin Sodium 40 Mg/0.4 Ml Syringe SUBCUT Not Given Q24H [facility] Ferrous Sulfate 324 mg 09/02/20 09:00 09/06/20 09:00 Ferrous Sulfate 324 Mg Tablet. PO Not Given DAILY [facility] Finasteride 5 mg 07/23/20 17:00 09/06/20 09:00 Finasteride 5 Mg Tablet PO Not Given DAILY [facility] Hydroxyzine HCl 25 mg 07/23/20 21:13 08/17/20 03:00 Hydroxyzine Hcl 25 Mg Tablet PO 25 mg BEDTIME PRN Administration Anxiety Lisinopril 2.5 mg 08/18/20 09:00 09/06/20 09:00 Lisinopril 2.5 Mg Tablet PO Not Given DAILY [facility] Protocol Loperamide HCl 2 mg 07/24/20 15:43 07/24/20 15:54 Loperamide Hcl 2 Mg Capsule PO 2 mg Q4H PRN Administration Diarrhea Magnesium Hydroxide 30 ml 07/23/20 21:13 Milk Of Magnesia 30 Ml Oral.Susp PO DAILY PRN Constipation Metformin HCl 500 mg 08/14/20 17:00 09/06/20 08:59 Metformin Hcl 500 Mg Tablet PO Not Given BIDWM [facility] Metoprolol Succinate 75 mg 07/23/20 17:00 09/06/20 09:01 Metoprolol Succinate Er 25 Mg Tab.Er.24h PO Not Given DAILY [facility] Protocol Multi-Ingred Cream/Lotion/Oil/Oint 1 appl 07/24/20 21:00 09/06/20 09:03 Mineral Oil/Petrolatum,White 106 Gm Tube TOPICAL Not Given BID [facility] Patient Own 1 each 08/14/20 10:27 08/14/20 12:06 Medication (Thera PO 1 each Breath Dry Mouth Q4H PRN Administration Lozenge) Dry Mouth Patient Own 1 each 08/14/20 10:30 09/06/20 09:04 Medication (Biotene PO Not Given 15 Ml) BID [facility] Nystatin 1 appl 07/26/20 19:25 09/06/20 09:05 Nystatin Cream 15 Gm Tube TOPICAL Not Given DAILY [facility] Protocol Olanzapine 10 mg 08/21/20 21:07 Olanzapine Odt 10 Mg Tab.Rapdis TRANSLINGU BID PRN severe agitation,aggression Omeprazole 20 mg 07/24/20 06:30 09/06/20 08:59 Omeprazole 20 Mg Capsule.Dr PO Not Given DAILY@0630 [facility] Ondansetron HCl 4 mg 08/08/20 09:04 08/08/20 09:27 Ondansetron Odt 4 Mg Tab.Rapdis TRANSLINGU 4 mg Q6H PRN Administration Nausea Saliva Substitute 1 spray 08/12/20 15:06 Dry Mouth [place] 30 Ml [place] MUCOUS MEM Q2H PRN Dry Mouth Tamsulosin HCl 0.4 mg 07/25/20 21:00 09/05/20 20:45 Tamsulosin Hcl 0.4 Mg Capsule PO Not Given BEDTIME [facility] Trazodone HCl 50 mg 05/19/21 21:13 08/17/20 03:00 Trazodone Hcl 50 Mg Tablet PO 50 mg BEDTIME PRN Administration Insomnia Vitamin D 50 mcg 07/23/20 21:00 09/05/20 20:45 Cholecalciferol (Vitamin D3) 25 Mcg Tablet PO Not Given BEDTIME [facility] Allergies Allergies Allergy/AdvReac Type Severity Reaction Status Date / Time No Known Allergies Allergy Verified 07/21/20 16:39 Assessment & Plan Assessment & Plan (1) Schizophrenia, paranoid, subchronic with acute exacerbation: Status: Acute Code(s): F20.0 - Paranoid schizophrenia Assessment and Plan: No changes to plan : Clozaril compliance is inconsistent currently. Will keep dosage at 25 mg to avoid adverse response. Jesse's ammendment process continues to move forward. Paperwork is submitted to the court. Continue 0ne to [facility] pt as he will allow. [place] building. Continue to offer items to improve comfort and well being. Greater than 50% of the session was spent on counseling and/or coordination of care Reason for contiued inpatient stay Substantial Risk for: harm to self, harm to others, inability to function, rapid decompensation and med/psych decompensation
[2020-09-07 06:00] VITALS: BP 115/53; PULSE 89; RESP 16; O2SAT 96
[2020-09-07 08:35] VITALS: BP 115/53; PULSE 89
[2020-09-07 08:36] VITALS: BP 115/53; PULSE 89
[2020-09-07 09:01] LABS: Creatinine Clr Calc Pharmacy 157.5; Estimated Glomerular Filt Rate > 60
--- NOTE | 2020-09-07 11:34 | P.PNPSI_ITS ---
Subjective Subjective Date of Service: 09/07/20 Reason For Visit: psychosis Interim History: Juan continues to decline medications and interventions of care. He refused meds and labs today. He declines extensive conversation; He is preoccupied with exercise, stating voices are telling him to exercise. He has belief that he is preparing for training for [employer]. He continues on one to one special. Tentative date for approval of [place] amendment in 09/19/20. Pt's brother plans to visit next week. Pt not taking lovenox since 08/09 and he is up and active daily doing push ups and exercise therefore lovenox d/c for now and can be restarted in future if needed Review of Systems Review of Systems Gen: no fever Resp: no sob, no cough CV: no chest, no DODD, +leg edema GI: No n/v, no abd pain Neuro: No confusion Yes all other systems are reviewed and are negative and Unobtainable due to mental status Constitutional: Reports anorexia, Reports daytime sleepiness, Reports difficulty sleeping, Reports fatigue, Reports lethargy, Reports malaise, Reports poor appe tite and Reports other (dehydration) Cardiovascular: Reports no additional cardiovascular complaints, Denies chest pain, Reports pedal edema, Reports leg edema and Denies lightheadedness Gastrointestinal: Reports no additional gastrointestinal complaints, Reports abdominal pain, Reports constipation and Reports nausea (Zofran prn ordered) Genitourinary: Reports other (SCOT sx) Reports behavioral changes, Reports confusion and Reports memory loss Psychiatric: Reports abnormal sleep pattern, Reports anxiety, Reports behavioral changes, Reports change in appetite, Reports confusion, Reports depression, Reports difficulty concentrating, Reports auditory hallucinations, Reports hopelessness, Reports irritability, Reports anhedonia, Reports memory loss, Reports mood swings, Reports paranoia, Reports visual hallucinations, Reports hallucinations and Reports suicidal ideation (no SI) Endocrine: Reports fatigue Mental Status Exam Mental Status Exam Narrative: lyng in reclining chair , twists around at times, various facial and limb movements consistent with TD Patient Appearance: Disheveled Patient Orientation: Person Level of Consciousness: Awake and Alert Patient Behavior: Guarded, Hyperactive, Suspicious, Anxious, Fearful, Resistive to Care, Distractible, Uncooperative and Poor Eye Contact Behavior Comments: actually makes eye contact here and there- appears fearful Mood Description: Constricted and Labile Affect Description: Constricted and Labile Patient Cognition Impaired: Yes Ability to Follow Directions: Poor Speech Pattern: Perseverating, Spontaneous Speech, Soft-Spoken, Cofabulation and Long Pauses Memory Description: Remote Impaired and Episodic Impaired Diagnostics Vital Signs (24Hr): Vital Signs - 24 hr 09/07/20 06:00 09/07/20 08:35 09/07/20 08:36 Pulse Rate 89 89 89 Respiratory Rate 16 Blood Pressure 115/53 L 115/53 L 115/53 L Pulse Oximetry 96 Body Mass Index 39.2 Labs Results: 08/26/20 17:08 09/07/20 08:30 Labs: Laboratory Results - last 48 hr 09/07/20 08:30 Creatinine 0.84 Estim Creat Clear Calc 157.5 Estimated GFR > 60 Imaging Radiology Impressions: ITS Impressions KUB X-Ray 07/22/20 17:13 IMPRESSION: Moderate volume of stool scattered in colon. No bowel obstruction. Medications Medications Current Medications Generic Name Dose Route Start Last Admin Trade Name Freq PRN Reason Stop Dose Admin Acetaminophen 650 mg 07/23/20 21:13 08/11/20 12:28 Acetaminophen 325 Mg Tablet PO 650 mg Q6H PRN Administration Headache/Pain Mild Scale (1-3) Al Hydroxide/Mg Hydroxide 30 ml 07/23/20 21:13 Magnesium Hydrox/Alum Hydrox 30 Ml Oral.Susp PO Q6H PRN Heartburn/Nausea Aspirin 81 mg 07/25/20 09:00 09/07/20 08:34 Aspirin Enteric Coated 81 Mg Tablet. PO Not Given DAILY [facility] Atorvastatin Calcium 80 mg 07/23/20 21:00 09/06/20 22:18 Atorvastatin Calcium 80 Mg Tablet PO Not Given BEDTIME [facility] Clopidogrel Bisulfate 75 mg 07/23/20 17:00 09/07/20 08:34 Clopidogrel Bisulfate 75 Mg Tablet PO Not Given DAILY [facility] Clozapine 25 mg 08/15/20 09:00 09/07/20 08:34 Clozapine 25 Mg Tablet PO Not Given DAILY [facility] Ferrous Sulfate 324 mg 09/02/20 09:00 09/07/20 08:34 Ferrous Sulfate 324 Mg Tablet. PO Not Given DAILY [facility] Finasteride 5 mg 07/23/20 17:00 09/07/20 08:35 Finasteride 5 Mg Tablet PO Not Given DAILY [facility] Hydroxyzine HCl 25 mg 07/23/20 21:13 08/17/20 03:00 Hydroxyzine Hcl 25 Mg Tablet PO 25 mg BEDTIME PRN Administration Anxiety Lisinopril 2.5 mg 08/18/20 09:00 09/07/20 08:35 Lisinopril 2.5 Mg Tablet PO Not Given DAILY [facility] Protocol Loperamide HCl 2 mg 07/24/20 15:43 07/24/20 15:54 Loperamide Hcl 2 Mg Capsule PO 2 mg Q4H PRN Administration Diarrhea Magnesium Hydroxide 30 ml 07/23/20 21:13 Milk Of Magnesia 30 Ml Oral.Susp PO DAILY PRN Constipation Metformin HCl 500 mg 08/14/20 17:00 09/07/20 08:34 Metformin Hcl 500 Mg Tablet PO Not Given BIDWM [facility] Metoprolol Succinate 75 mg 07/23/20 17:00 09/07/20 08:36 Metoprolol Succinate Er 25 Mg Tab.Er.24h PO Not Given DAILY [facility] Protocol Multi-Ingred Cream/Lotion/Oil/Oint 1 appl 07/24/20 21:00 09/07/20 08:55 Mineral Oil/Petrolatum,White 106 Gm Tube TOPICAL Not Given BID [facility] Patient Own 1 each 08/14/20 10:27 08/14/20 12:06 Medication (Thera PO 1 each Breath Dry Mouth Q4H PRN Administration Lozenge) Dry Mouth Patient Own 1 each 08/14/20 10:30 09/07/20 08:55 Medication (Biotene PO Not Given 15 Ml) BID [facility] Nystatin 1 appl 07/26/20 19:25 09/07/20 08:55 Nystatin Cream 15 Gm Tube TOPICAL Not Given DAILY [facility] Protocol Olanzapine 10 mg 08/21/20 21:07 Olanzapine Odt 10 Mg Tab.Rapdis TRANSLINGU BID PRN severe agitation,aggression Omeprazole 20 mg 07/24/20 06:30 09/07/20 08:34 Omeprazole 20 Mg Capsule.Dr PO Not Given DAILY@0630 [facility] Ondansetron HCl 4 mg 08/08/20 09:04 08/08/20 09:27 Ondansetron Odt 4 Mg Tab.Rapdis TRANSLINGU 4 mg Q6H PRN Administration Nausea Saliva Substitute 1 spray 08/12/20 15:06 Dry Mouth [place] 30 Ml [place] MUCOUS MEM Q2H PRN Dry Mouth Tamsulosin HCl 0.4 mg 07/25/20 21:00 09/06/20 22:19 Tamsulosin Hcl 0.4 Mg Capsule PO Not Given BEDTIME [facility] Trazodone HCl 50 mg 07/23/20 21:13 08/17/20 03:00 Trazodone Hcl 50 Mg Tablet PO 50 mg BEDTIME PRN Administration Insomnia Vitamin D 50 mcg 07/23/20 21:00 09/06/20 22:18 Cholecalciferol (Vitamin D3) 25 Mcg Tablet PO Not Given BEDTIME [facility] Allergies Allergies Allergy/AdvReac Type Severity Reaction Status Date / Time No Known Allergies Allergy Verified 07/21/20 16:39 Assessment & Plan Assessment & Plan (1) Schizophrenia, paranoid, subchronic with acute exacerbation: Status: Acute Code(s): F20.0 - Paranoid schizophrenia Assessment and Plan: d/c lovenox for now Clozaril compliance is inconsistent currently. Will keep dosage at 25 mg to avoid adverse response. Jesse's ammendment process continues to move forward. Paperwork is submitted to the court. Continue 0ne to [facility] pt as he will allow. [place] building. Continue to offer items to improve comfort and well being. Greater than 50% of the session was spent on counseling and/or coordination of care Reason for contiued inpatient stay Substantial Risk for: harm to self, harm to others, inability to function, rapid decompensation and med/psych decompensation
--- NOTE | 2020-09-08 12:27 | HO.PSYCHPN ---
Subjective Subjective Date of Service: 09/08/20 Reason For Visit: psychosis Interim History: Juan continues to decline medications and interventions of care. He refused meds and labs today. He declines extensive conversation; He is still preoccupied with exercise, stating voices are telling him to exercise. He is walking in hallways frequently. He has belief that he is preparing for training for [employer]. He continues on one to one special. Tentative date for approval of [place] amendment in 09/19/20. Pt's brother plans to visit next week. Pt not taking lovenox since 08/09 and he is up and active daily doing push ups and exercise therefore lovenox d/c for now and can be restarted in future if needed Review of Systems Review of Systems Gen: no fever Resp: no sob, no cough CV: no chest, no DODD, +leg edema GI: No n/v, no abd pain Neuro: No confusion Yes all other systems are reviewed and are negative and Unobtainable due to mental status Constitutional: Reports anorexia, Reports daytime sleepiness, Reports difficulty sleeping, Reports fatigue, Reports lethargy, Reports malaise, Reports poor appetite and Reports other (dehydration) Cardiovascular: Reports no additional cardiovascular complaints, Denies chest pain, Reports pedal edema, Reports leg edema and Denies lightheadedness Gastrointestinal: Reports no additional gastrointestinal complaints, Reports abdominal pain, Reports constipation and Reports nausea (Zofran prn ordered) Genitourinary: Reports other (SCOT sx) Reports behavioral changes, Reports confusion and Reports memory loss Psychiatric: Reports abnormal sleep pattern, Reports anxiety, Reports behavioral changes, Reports change in appetite, Reports confusion, Reports depression, Reports difficulty concentrating, Reports auditory hallucinations, Reports hopelessness, Reports irritability, Reports anhedonia, Reports memory loss, Reports mood swings, Reports paranoia, Reports visual hallucinations, Reports hallucinations and Reports suicidal ideation (no SI) Endocrine: Reports fatigue Mental Status Exam Mental Status Exam Narrative: lyng in reclining chair , twists around at times, various facial and limb movements consistent with TD Patient Appearance: Disheveled Patient Orientation: Person Level of Consciousness: Awake and Alert Patient Behavior: Guarded, Hyperactive, Suspicious, Anxious, Fearful, Resistive to Care, Distractible, Uncooperative and Poor Eye Contact Behavior Comments: actually makes eye contact here and there- appears fearful Mood Description: Constricted and Labile Affect Description: Constricted and Labile Patient Cognition Impaired: Yes Ability to Follow Directions: Poor Speech Pattern: Perseverating, Spontaneous Speech, Soft-Spoken, Cofabulation and Long Pauses Memory Description: Remote Impaired and Episodic Impaired Diagnostics Vital Signs (24Hr): Body Mass Index 39.2 Labs Results: 08/26/20 17:08 09/07/20 08:30 Labs: Laboratory Results - last 48 hr 09/07/20 08:30 Creatinine 0.84 Estim Creat Clear Calc 157.5 Estimated GFR > 60 Imaging Radiology Impressions: ITS Impressions KUB X-Ray 07/22/20 17:13 IMPRESSION: Moderate volume of stool scattered in colon. No bowel obstruction. Medications Medications Current Medications Generic Name Dose Route Start Last Admin Trade Name Freq PRN Reason Stop Dose Admin Acetaminophen 650 mg 07/23/20 21:13 08/11/20 12:28 Acetaminophen 325 Mg Tablet PO 650 mg Q6H PRN Administration Headache/Pain Mild Scale (1-3) Al Hydroxide/Mg Hydroxide 30 ml 07/23/20 21:13 Magnesium Hydrox/Alum Hydrox 30 Ml Oral.Susp PO Q6H PRN Heartburn/Nausea Aspirin 81 mg 07/25/20 09:00 09/08/20 08:53 Aspirin Enteric Coated 81 Mg Tablet. PO Not Given DAILY [facility] Atorvastatin Calcium 80 mg 07/23/20 21:00 09/07/20 22:37 Atorvastatin Calcium 80 Mg Tablet PO Not Given BEDTIME [facility] Clopidogrel Bisulfate 75 mg 07/23/20 17:00 09/08/20 08:53 Clopidogrel Bisulfate 75 Mg Tablet PO Not Given DAILY [facility] Clozapine 25 mg 08/15/20 09:00 09/08/20 08:53 Clozapine 25 Mg Tablet PO Not Given DAILY [facility] Ferrous Sulfate 324 mg 09/02/20 09:00 09/08/20 08:53 Ferrous Sulfate 324 Mg Tablet. PO Not Given DAILY [facility] Finasteride 5 mg 07/23/20 17:00 09/08/20 08:53 Finasteride 5 Mg Tablet PO Not Given DAILY [facility] Hydroxyzine HCl 25 mg 07/23/20 21:13 08/17/20 03:00 Hydroxyzine Hcl 25 Mg Tablet PO 25 mg BEDTIME PRN Administration Anxiety Lisinopril 2.5 mg 08/18/20 09:00 09/08/20 08:53 Lisinopril 2.5 Mg Tablet PO Not Given DAILY [facility] Protocol Loperamide HCl 2 mg 07/24/20 15:43 07/24/20 15:54 Loperamide Hcl 2 Mg Capsule PO 2 mg Q4H PRN Administration Diarrhea Magnesium Hydroxide 30 ml 07/23/20 21:13 Milk Of Magnesia 30 Ml Oral.Susp PO DAILY PRN Constipation Metformin HCl 500 mg 08/14/20 17:00 09/08/20 08:52 Metformin Hcl 500 Mg Tablet PO Not Given BIDWM [facility] Metoprolol Succinate 75 mg 07/23/20 17:00 09/08/20 08:53 Metoprolol Succinate Er 25 Mg Tab.Er.24h PO Not Given DAILY [facility] Protocol Multi-Ingred Cream/Lotion/Oil/Oint 1 appl 07/24/20 21:00 09/08/20 08:54 Mineral Oil/Petrolatum,White 106 Gm Tube TOPICAL Not Given BID [facility] Patient Own 1 each 08/14/20 10:27 08/14/20 12:06 Medication (Thera PO 1 each Breath Dry Mouth Q4H PRN Administration Lozenge) Dry Mouth Patient Own 1 each 08/14/20 10:30 09/08/20 08:54 Medication (Biotene PO Not Given 15 Ml) BID [facility] Nystatin 1 appl 07/26/20 19:25 09/08/20 08:54 Nystatin Cream 15 Gm Tube TOPICAL Not Given DAILY [facility] Protocol Olanzapine 10 mg 08/21/20 21:07 Olanzapine Odt 10 Mg Tab.Rapdis TRANSLINGU BID PRN severe agitation,aggression Omeprazole 20 mg 07/24/20 06:30 09/08/20 05:44 Omeprazole 20 Mg Capsule.Dr PO Not Given DAILY@0630 [facility] Ondansetron HCl 4 mg 08/08/20 09:04 08/08/20 09:27 Ondansetron Odt 4 Mg Tab.Rapdis TRANSLINGU 4 mg Q6H PRN Administration Nausea Saliva Substitute 1 spray 08/12/20 15:06 Dry Mouth [place] 30 Ml [place] MUCOUS MEM Q2H PRN Dry Mouth Tamsulosin HCl 0.4 mg 07/25/20 21:00 09/07/20 22:38 Tamsulosin Hcl 0.4 Mg Capsule PO Not Given BEDTIME [facility] Trazodone HCl 50 mg 07/23/20 21:13 08/17/20 03:00 Trazodone Hcl 50 Mg Tablet PO 50 mg BEDTIME PRN Administration Insomnia Vitamin D 50 mcg 07/23/20 21:00 09/07/20 22:37 Cholecalciferol (Vitamin D3) 25 Mcg Tablet PO Not Given BEDTIME [facility] Allergies Allergies Allergy/AdvReac Type Severity Reaction Status Date / Time No Known Allergies Allergy Verified 07/21/20 16:39 Assessment & Plan Assessment & Plan (1) Schizophrenia, paranoid, subchronic with acute exacerbation: Status: Acute Code(s): F20.0 - Paranoid schizophrenia Assessment and Plan: d/c lovenox for now Clozaril compliance is inconsistent currently. Will keep dosage at 25 mg to avoid adverse response. Jesse's ammendment process continues to move forward. Paperwork is submitted to the court. Continue 0ne to [facility] pt as he will allow. [place] building. Continue to offer items to improve comfort and well being. Greater than 50% of the session was spent on counseling and/or coordination of care Reason for contiued inpatient stay Substantial Risk for: harm to self, harm to others, inability to function, rapid decompensation and med/psych decompensation
--- NOTE | 2020-09-08 13:11 | PC.NURSE ---
r knee noted to be bleeding thru jeans. pt let me look at it. quarter to half dollar sized area where skin was removed. he states he didnt know how it happened. covered with bandaid.
[2020-09-08] MEDS: metFORMIN HCl 500 MG TABLET PO (16:27)
[2020-09-08 16:32] VITALS: RESP 18; O2SAT 93
[2020-09-08] MEDS: Atorvastatin Calcium 80 MG TABLET PO (20:57)
[2020-09-08] MEDS: Tamsulosin HCL 0.4 MG CAPSULE PO (20:57)
[2020-09-08] MEDS: Cholecalciferol (Vitamin D3) 25 MCG TABLET 50 MCG PO (20:57)
[2020-09-09 06:00] VITALS: BP 119/56; PULSE 88; RESP 20; O2SAT 96
[2020-09-09] MEDS: metFORMIN HCl 500 MG TABLET PO (09:00)
[2020-09-09] MEDS: Clopidogrel Bisulfate 75 MG TABLET PO (09:00)
[2020-09-09] MEDS: Aspirin Enteric Coated 81 MG TABLET.DR PO (09:00)
[2020-09-09] MEDS: Ferrous Sulfate 324 MG TABLET.DR PO (09:00)
[2020-09-09 09:01] VITALS: BP 119/57; PULSE 87
[2020-09-09] MEDS: Metoprolol Succinate ER 25 MG TAB.ER.24H 75 MG PO (09:01)
[2020-09-09] MEDS: Finasteride 5 MG TABLET PO (09:01)
[2020-09-09] MEDS: lisinopriL 2.5 MG TABLET PO (09:01)
[2020-09-09] MEDS: cloZAPine 25 MG TABLET PO (09:01)
--- NOTE | 2020-09-09 17:11 | P.PNPSI_ITS ---
Subjective Subjective Date of Service: 09/09/20 Reason For Visit: psychosis Subjective Notes: Conditional Voluntary Healthcare Proxy: No Guardianship: Yes Medical Problems Affecting Mental Status: Yes Interim History: Accepted medications today after a long period of refusal. Continues to struggle with auditory perceptual alterations, commanding him not to use medication, to exercise and respond to the illness. Brother expected on 09/11 for a visit. Team attempting to help pt prepare, look forward, assume more self care in preparation-responses are erratic and irregular. 09/07/20 creatinine 0.84; CrCl 157.5 and GFR >60. Pt continues on one to one. Review of Systems Review of Systems Yes Unobtainable due to mental status Reports behavioral changes Psychiatric: Reports abnormal sleep pattern, Reports behavioral changes, Reports change in appetite, Reports difficulty concentrating, Reports auditory hallucinations, Reports anhedonia, Reports paranoia, Reports visual hallucinations and Reports hallucinations Mental Status Exam Mental Status Exam Patient Appearance: Fatigued Patient Orientation: Person and Place Level of Consciousness: Awake Patient Behavior: Guarded, Talkative, Suspicious, Restless, Wandering, Anxious, Fearful, Resistive to Care, Avoidant, Fatigued, Distractible, Isolative, Uncooperative and Poor Eye Contact Mood Description: Suspicious, Withdrawn and Blunted Affect Description: Blunted Patient Cognition Impaired: Yes Ability to Follow Directions: Fair Speech Pattern: Clear, Spontaneous Speech, Soft-Spoken and Delayed Memory Description: Remote Impaired and Episodic Impaired Hallucinations: Auditory Delusions: Being Controlled, Paranoid Ideation and Present Perceptual Disturbances: Depersonalization and Derealization Thought Process: Illogical, Distracted, Rumination and Slowed Thinking Thought Content: positive for [place], positive for Obsessional Thoughts, positive for Circumstantial, positive for Perseveration, positive for Poverty of Content, positive for Preoccupation, positive for Thought Blocking, positive for Disorganized and positive for Suicidal Ideation (denies) Depressive Symptoms: Insomnia, Diff. Making Decisions, Difficulty Sleeping, Changes in Appetite, Isolating-Friends/Family, Increased Fatigue and Difficulty Concentrating Abnormal Motor Activity Signs and Symptoms: Restlessness Judgement: Poor Diagnostics Vital Signs (24Hr): Vital Signs - 24 hr 09/09/20 06:00 09/09/20 09:01 Pulse Rate 88 87 Respiratory Rate 20 Blood Pressure 119/56 L 119/57 L Pulse Oximetry 96 Body Mass Index 39.2 Labs Results: 08/26/20 17:08 09/07/20 08:30 Imaging Radiology Impressions: ITS Impressions KUB X-Ray 07/22/20 17:13 IMPRESSION: Moderate volume of stool scattered in colon. No bowel obstruction. Medications Medications Current Medications Generic Name Dose Route Start Last Admin Trade Name [place] PRN Reason Stop Dose Admin Acetaminophen 650 mg 07/23/20 21:13 08/11/20 12:28 Acetaminophen 325 Mg Tablet PO 650 mg Q6H PRN Administration Headache/Pain Mild Scale (1-3) Al Hydroxide/Mg Hydroxide 30 ml 07/23/20 21:13 Magnesium Hydrox/Alum Hydrox 30 Ml Oral.Susp PO Q6H PRN Heartburn/Nausea Aspirin 81 mg 07/25/20 09:00 09/09/20 09:00 Aspirin Enteric Coated 81 Mg Tablet. PO 81 mg DAILY [facility] Administration Atorvastatin Calcium 80 mg 07/23/20 21:00 09/08/20 20:57 Atorvastatin Calcium 80 Mg Tablet PO 80 mg BEDTIME [facility] Administration Clopidogrel Bisulfate 75 mg 07/23/20 17:00 09/09/20 09:00 Clopidogrel Bisulfate 75 Mg Tablet PO 75 mg DAILY [facility] Administration Clozapine 25 mg 08/15/20 09:00 09/09/20 09:01 Clozapine 25 Mg Tablet PO 25 mg DAILY [facility] Administration Ferrous Sulfate 324 mg 09/02/20 09:00 09/09/20 09:00 Ferrous Sulfate 324 Mg Tablet. PO 324 mg DAILY [facility] Administration Finasteride 5 mg 07/23/20 17:00 09/09/20 09:01 Finasteride 5 Mg Tablet PO 5 mg DAILY [facility] Administration Hydroxyzine HCl 25 mg 07/23/20 21:13 08/17/20 03:00 Hydroxyzine Hcl 25 Mg Tablet PO 25 mg BEDTIME PRN Administration Anxiety Lisinopril 2.5 mg 08/18/20 09:00 09/09/20 09:01 Lisinopril 2.5 Mg Tablet PO 2.5 mg DAILY [facility] Administration Protocol Loperamide HCl 2 mg 07/24/20 15:43 07/24/20 15:54 Loperamide Hcl 2 Mg Capsule PO 2 mg Q4H PRN Administration Diarrhea Magnesium Hydroxide 30 ml 07/23/20 21:13 Milk Of Magnesia 30 Ml Oral.Susp PO DAILY PRN Constipation Metformin HCl 500 mg 08/14/20 17:00 09/09/20 09:00 Metformin Hcl 500 Mg Tablet PO 500 mg BIDWM [facility] Administration Metoprolol Succinate 75 mg 07/23/20 17:00 09/09/20 09:01 Metoprolol Succinate Er 25 Mg Tab.Er.24h PO 75 mg DAILY [facility] Administration Protocol Multi-Ingred Cream/Lotion/Oil/Oint 1 appl 07/24/20 21:00 09/09/20 09:04 Mineral Oil/Petrolatum,White 106 Gm Tube TOPICAL Not Given BID [facility] Patient Own 1 each 08/14/20 10:27 08/14/20 12:06 Medication (Thera PO 1 each Breath Dry Mouth Q4H PRN Administration Lozenge) Dry Mouth Patient Own 1 each 08/14/20 10:30 09/09/20 09:04 Medication (Biotene PO Not Given 15 Ml) BID [facility] Nystatin 1 appl 07/26/20 19:25 09/09/20 09:04 Nystatin Cream 15 Gm Tube TOPICAL Not Given DAILY [facility] Protocol Olanzapine 10 mg 08/21/20 21:07 Olanzapine Odt 10 Mg Tab.Rapdis TRANSLINGU BID PRN severe agitation,aggression Omeprazole 20 mg 07/24/20 06:30 09/09/20 05:46 Omeprazole 20 Mg Capsule.Dr PO Not Given DAILY@0630 [facility] Ondansetron HCl 4 mg 08/08/20 09:04 08/08/20 09:27 Ondansetron Odt 4 Mg Tab.Rapdis TRANSLINGU 4 mg Q6H PRN Administration Nausea Saliva Substitute 1 spray 08/12/20 15:06 Dry Mouth [place] 30 Ml [place] MUCOUS MEM Q2H PRN Dry Mouth Tamsulosin HCl 0.4 mg 07/25/20 21:00 09/08/20 20:57 Tamsulosin Hcl 0.4 Mg Capsule PO 0.4 mg BEDTIME [facility] Administration Trazodone HCl 50 mg 07/23/20 21:13 08/17/20 03:00 Trazodone Hcl 50 Mg Tablet PO 50 mg BEDTIME PRN Administration Insomnia Vitamin D 50 mcg 07/23/20 21:00 09/08/20 20:57 Cholecalciferol (Vitamin D3) 25 Mcg Tablet PO 50 mcg BEDTIME [facility] Administration Allergies Allergies Allergy/AdvReac Type Severity Reaction Status Date / Time No Known Allergies Allergy Verified 07/21/20 16:39 Assessment & Plan Assessment & Plan (1) Schizophrenia, paranoid, subchronic with acute exacerbation: Status: Acute Code(s): F20.0 - Paranoid schizophrenia Assessment and Plan: d/c lovenox for now Clozaril compliance is inconsistent currently. Will keep dosage at 25 mg to avoid adverse response. Jesse's ammendment process continues to move forward. Paperwork is submitted to the court. Continue 0ne to [facility] pt as he will allow. [place] building. Continue to offer items to improve comfort and well being. Greater than 50% of the session was spent on counseling and/or coordination of care Reason for contiued inpatient stay Substantial Risk for: harm to self, harm to others, inability to function, rapid decompensation and med/psych decompensation
--- NOTE | 2020-09-10 | ECG_ITS ---
Test Reason : psychosis, not eating, over exertion, not taking medication Blood Pressure : / mmHG Vent. Rate : 081 BPM Atrial Rate : 081 BPM P-R Int : 136 ms QRS Dur : 086 ms QT Int : 384 ms P-R-T Axes : 073 019 041 degrees QTc Int : 446 ms Normal sinus rhythm Normal ECG When compared with ECG of 22-JUL-2020 15:47, Nonspecific T wave abnormality no longer evident in Anterolateral leads Referred By: Marissa Griffiths Electronically Signed By:YONATAN CLEMENTS
[2020-09-10] MEDS: Mineral Oil/Petrolatum,White 106 GM Tube 1 APPL TOPICAL (09:18)
--- NOTE | 2020-09-10 13:32 | HO.PSYCHPN ---
Subjective Subjective Date of Service: 09/10/20 Reason For Visit: psychosis Subjective Notes: Conditional Voluntary Healthcare Proxy: No Guardianship: Yes Medical Problems Affecting Mental Status: No Interim History: Juan appears to be deeper into his psychosis-responding to voices who tell him not to eat, exercise and not to accept care and treatment. Diagnostics, I&O and one to one in place. Discussion with [facility] legal team, [facility] Risk Management, Josephine Alegre RN Director of Behavioral Health, Dr. Solitario, medical records coder, team regarding initiating Jesse's addendum medications prior to documents being in person. Stat labs, EKG to assess metabolic, cardiac functioning. Beginning treatment without authority discussed at length at several intervals today. Brother expected on 09/11. Possible civil commitment process as well discussed. Medication Compliance: No Side effects from medications: No Attending Groups: No Review of Systems Reports behavioral changes and Reports confusion Psychiatric: Reports abnormal sleep pattern, Reports anxiety, Reports behavioral changes, Reports change in appetite, Reports confusion, Reports depression, Reports difficulty concentrating, Reports auditory hallucinations, Reports hopelessness, Reports anhedonia, Reports paranoia, Reports visual hallucinations and Reports hallucinations Mental Status Exam Mental Status Exam Patient Appearance: Fatigued and Disheveled Patient Orientation: Person and Place Level of Consciousness: Awake Patient Behavior: Guarded, Hyperactive, Suspicious, Restless, Wandering, Anxious, Fearful, Resistive to Care, Avoidant, Fatigued, Distractible, Confused and Isolative Mood Description: Constricted Affect Description: Constricted Patient Cognition Impaired: Yes Ability to Follow Directions: Poor Speech Pattern: Perseverating, Spontaneous Speech, Soft-Spoken, Cofabulation, Delayed and Long Pauses Memory Description: Remote Impaired and Episodic Impaired Hallucinations: Auditory Delusions: Paranoid Ideation and Present Perceptual Disturbances: Derealization Thought Process: Illogical, Distracted, Rumination and Slowed Thinking Thought Content: positive for Flight of Ideas, positive for Obsessional Thoughts, positive for Circumstantial, positive for Perseveration, positive for [place] of Content, positive for Thought Blocking and positive for Disorganized Depressive Symptoms: Insomnia, Increased Irritability, Difficulty Sleeping, Loss of Int. in Activity, Increased Fatigue and Difficulty Concentrating Abnormal Motor Activity Signs and Symptoms: Hyperactivity and Restlessness Judgement: Poor Diagnostics Vital Signs (24Hr): Body Mass Index 39.2 Labs Results: 09/10/20 14:10 09/10/20 14:10 Imaging Radiology Impressions: ITS Impressions KUB X-Ray 07/22/20 17:13 IMPRESSION: Moderate volume of stool scattered in colon. No bowel obstruction. Medications Medications Current Medications Generic Name Dose Route Start Last Admin Trade Name Jaret PRN Reason Stop Dose Admin Acetaminophen 650 mg 07/23/20 21:13 08/11/20 12:28 Acetaminophen 325 Mg Tablet PO 650 mg Q6H PRN Administration Headache/Pain Mild Scale (1-3) Al Hydroxide/Mg Hydroxide 30 ml 07/23/20 21:13 Magnesium Hydrox/Alum Hydrox 30 Ml Oral.Susp PO Q6H PRN Heartburn/Nausea Aspirin 81 mg 07/25/20 09:00 09/10/20 08:53 Aspirin Enteric Coated 81 Mg Tablet. PO Not Given DAILY [facility] Atorvastatin Calcium 80 mg 07/23/20 21:00 09/09/20 21:08 Atorvastatin Calcium 80 Mg Tablet PO Not Given BEDTIME [facility] Clopidogrel Bisulfate 75 mg 07/23/20 17:00 09/10/20 08:53 Clopidogrel Bisulfate 75 Mg Tablet PO Not Given DAILY [facility] Clozapine 25 mg 08/15/20 09:00 09/10/20 08:53 Clozapine 25 Mg Tablet PO Not Given DAILY [facility] Ferrous Sulfate 324 mg 09/02/20 09:00 09/10/20 08:54 Ferrous Sulfate 324 Mg Tablet. PO Not Given DAILY [facility] Finasteride 5 mg 07/23/20 17:00 09/10/20 08:54 Finasteride 5 Mg Tablet PO Not Given DAILY [facility] Hydroxyzine HCl 25 mg 07/23/20 21:13 08/17/20 03:00 Hydroxyzine Hcl 25 Mg Tablet PO 25 mg BEDTIME PRN Administration Anxiety Lisinopril 2.5 mg 08/18/20 09:00 09/10/20 08:54 Lisinopril 2.5 Mg Tablet PO Not Given DAILY [facility] Protocol Loperamide HCl 2 mg 07/24/20 15:43 07/24/20 15:54 Loperamide Hcl 2 Mg Capsule PO 2 mg Q4H PRN Administration Diarrhea Magnesium Hydroxide 30 ml 07/23/20 21:13 Milk Of Magnesia 30 Ml Oral.Susp PO DAILY PRN Constipation Metformin HCl 500 mg 08/14/20 17:00 09/10/20 08:38 Metformin Hcl 500 Mg Tablet PO Not Given BIDWM [facility] Metoprolol Succinate 75 mg 07/23/20 17:00 09/10/20 08:54 Metoprolol Succinate Er 25 Mg Tab.Er.24h PO Not Given DAILY [facility] Protocol Multi-Ingred Cream/Lotion/Oil/Oint 1 appl 07/24/20 21:00 09/10/20 09:18 Mineral Oil/Petrolatum,White 106 Gm Tube TOPICAL 1 appl BID [facility] Administration Patient Own 1 each 08/14/20 10:27 08/14/20 12:06 Medication (Thera PO 1 each Breath Dry Mouth Q4H PRN Administration Lozenge) Dry Mouth Patient Own 1 each 08/14/20 10:30 09/10/20 08:55 Medication (Biotene PO Not Given 15 Ml) BID [facility] Nystatin 1 appl 07/26/20 19:25 09/10/20 08:55 Nystatin Cream 15 Gm Tube TOPICAL Not Given DAILY [facility] Protocol Olanzapine 10 mg 08/21/20 21:07 Olanzapine Odt 10 Mg Tab.Rapdis TRANSLINGU BID PRN severe agitation,aggression Omeprazole 20 mg 07/24/20 06:30 09/10/20 08:37 Omeprazole 20 Mg Capsule.Dr PO Not Given DAILY@0630 [facility] Ondansetron HCl 4 mg 08/08/20 09:04 08/08/20 09:27 Ondansetron Odt 4 Mg Tab.Rapdis TRANSLINGU 4 mg Q6H PRN Administration Nausea Saliva Substitute 1 spray 08/12/20 15:06 Dry Mouth [place] 30 Ml [place] MUCOUS MEM Q2H PRN Dry Mouth Tamsulosin HCl 0.4 mg 07/25/20 21:00 09/09/20 21:09 Tamsulosin Hcl 0.4 Mg Capsule PO Not Given BEDTIME [facility] Trazodone HCl 50 mg 07/23/20 21:13 08/17/20 03:00 Trazodone Hcl 50 Mg Tablet PO 50 mg BEDTIME PRN Administration Insomnia Vitamin D 50 mcg 07/23/20 21:00 09/09/20 21:08 Cholecalciferol (Vitamin D3) 25 Mcg Tablet PO Not Given BEDTIME [facility] Allergies Allergies Allergy/AdvReac Type Severity Reaction Status Date / Time No Known Allergies Allergy Verified 07/21/20 16:39 Assessment & Plan Assessment & Plan (1) Schizophrenia, paranoid, subchronic with acute exacerbation: Status: Acute Code(s): F20.0 - Paranoid schizophrenia Assessment and Plan: d/c lovenox for now Clozaril compliance is inconsistent currently. Will keep dosage at 25 mg to avoid adverse response. Jesse's ammendment process continues to move forward. Paperwork is submitted to the court. Continue 0ne to [facility] pt as he will allow. [place] building. Continue to offer items to improve comfort and well being. Continue to assess appropriateness to implement Jesse's addendum prior to court approval. Greater than 50% of the session was spent on counseling and/or coordination of care Reason for contiued inpatient stay Substantial Risk for: harm to self, harm to others, inability to function, rapid decompensation and med/psych decompensation
[2020-09-10 14:15] LABS: MANUAL DIFF FLAG NO
[2020-09-10 14:20] LABS: Basophils Percent Auto 0.3 % (0-2); Eosinophils Absolute Auto 0.1 X10*3/uL (0.0-0.4); Eosinophils Percent Auto 1.2 % (0-4); Hematocrit 33.3 % (42-52); Hemoglobin 10.5 g/dl (14.0-18.0); Imm Gran Abs Auto 0.03 X10*3/uL (0.00-0.03); Imm Gran Pct Auto 0.3 % (0.0-0.4); Lymphocytes Absolute Auto 2.1 X10*3/uL (1.2-4.9); Lymphocytes Percent Auto 23.6 % (20-40); Mean Corpuscular HGB Conc 31.5 g/dl (31.0-36.0); Mean Corpuscular Hemoglobin 26.5 pg (27.0-33.0); Mean Corpuscular Volume 84.1 fL (80-98); Mean Platelet Volume 9.2 fL (9.4-12.4); Monocytes Absolute Auto 0.8 X10*3/uL (0.1-1.2); Monocytes Percent Auto 8.5 % (2-11); Neutrophils Absolute Auto 5.8 X10*3/uL (2.0-8.3); Neutrophils Percent Auto 66.1 % (45-73); Platelet Count 359 X10*3/uL (160-400); Red Blood Count 3.96 X10*6/uL (4.60-5.80); Red Cell Distribution Width 18.6 % (11.0-16.0); White Blood Count 8.9 X10*3/uL (4.8-10.8)
[2020-09-10 14:47] LABS: Anion Gap 14 (12-20); Blood Urea Nitrogen 14 mg/dL (9-16); Calcium 9.4 mg/dL (8.4-10.2); Carbon Dioxide 27 mmol/L (22-29); Chloride 105 mmol/L (96-108); Creatinine Clr Calc Pharmacy 139.3; Estimated Glomerular Filt Rate > 60; Glucose Random 93 mg/dL (60-115); Potassium 4.1 mmol/L (3.3-5.1); Sodium 142 mmol/L (135-145)
[2020-09-10] MEDS: metFORMIN HCl 500 MG TABLET PO (16:54)
[2020-09-10] MEDS: Atorvastatin Calcium 80 MG TABLET PO (20:26)
[2020-09-10] MEDS: Cholecalciferol (Vitamin D3) 25 MCG TABLET 50 MCG PO (20:26)
[2020-09-10] MEDS: Tamsulosin HCL 0.4 MG CAPSULE PO (20:26)
[2020-09-11] MEDS: cloZAPine 25 MG TABLET PO (09:02)
[2020-09-11 09:18] VITALS: PULSE 68
[2020-09-11 14:16] VITALS: BMI 38.1
--- NOTE | 2020-09-11 16:58 | P.PNPSI_ITS ---
Subjective Subjective Date of Service: 09/11/20 Reason For Visit: psychosis Subjective Notes: Conditional Voluntary Healthcare Proxy: Yes Guardianship: No Medical Problems Affecting Mental Status: Yes Interim History: Family meeting with pt, his brother from [place] and [facility]. Pt was interactive, avoidant on many questions and was asked several direct questions from his brother, who has been working with pt's illness since 1982 and has keen awareness of pts response patterns and non verbal meanings to themes of pt's thought process. Discussed current legal process, awaiting [place] amended paperwork along with nursing home care planning. Pt's beliefs, response to voices were challenged by pt's brother and pt was able to tolerate this but did evade some content. Pt did eat lunch for his brother who purchased some of his favorites in the cafeteria. Pt not too interested in improving so he may discharge and take some vacation time with brother but we did review what he needed to do to work toward discharge. Reality tested regarding not eating, effects upon his health and effects the voices were having upon his choices to not take care of himself. Medication Compliance: No Side effects from medications: No Attending Groups: No Review of Systems Reports behavioral changes and Reports confusion Psychiatric: Reports abnormal sleep pattern, Reports anxiety, Reports behavioral changes, Reports change in appetite, Reports confusion, Reports depression, Reports difficulty concentrating, Reports auditory hallucinations and Reports paranoia Mental Status Exam Mental Status Exam Patient Appearance: Appropriate Patient Orientation: Person, Place, Time and Situation Level of Consciousness: Alert Patient Behavior: Appropriate, Guarded, Talkative, Cooperative, Suspicious, Anxious, Resistive to Care, Fatigued, Distractible and Poor Eye Contact Mood Description: Suspicious, Withdrawn, Constricted, Anxious, Flat and Apprehensive Affect Description: Flat Patient Cognition Impaired: Yes Ability to Follow Directions: Fair Speech Pattern: Spontaneous Speech, Soft-Spoken and Long Pauses Memory Description: Remote Impaired and Episodic Impaired Hallucinations: Auditory Delusions: Present Perceptual Disturbances: Depersonalization and Derealization Thought Process: Illogical and Distracted Thought Content: positive for [place], positive for Circumstantial, positive for Perseveration, positive for Thought Blocking and positive for Disorganized Depressive Symptoms: Insomnia, Diff. Making Decisions, Difficulty Sleeping, Changes in Appetite, Significant Weight Loss, Unhappiness, Increased Fatigue, Low Self Esteem and Difficulty Concentrating Judgement: Poor Diagnostics Vital Signs (24Hr): Vital Signs - 24 hr 09/11/20 09:18 Pulse Rate 68 Body Mass Index 38.1 Labs Results: 09/10/20 14:10 09/10/20 14:10 Labs: Laboratory Results - last 48 hr 09/10/20 09/10/20 14:10 14:10 WBC 8.9 RBC 3.96 L Hgb 10.5 L Hct 33.3 L MCV 84.1 MCH 26.5 L MCHC 31.5 RDW 18.6 H Plt Count 359 MPV 9.2 L Immature Gran % (Auto) 0.3 Neut % (Auto) 66.1 Lymph % (Auto) 23.6 [place] % (Auto) 8.5 Eos % (Auto) 1.2 Baso % (Auto) 0.3 Lymph # (Auto) 2.1 [place] # (Auto) 0.8 Eos # (Auto) 0.1 Baso # (Auto) 0.0 Abs Immat Gran (auto) 0.03 Absolute Neuts (auto) 5.8 Absolute Nucleated RBC 0.000 Nucleated RBC % (auto) 0.0 Sodium 142 Potassium 4.1 Chloride 105 Carbon Dioxide 27 Anion Gap 14 BUN 14 Creatinine 0.95 Estim Creat Clear Calc 139.3 Estimated GFR > 60 Random Glucose 93 Calcium 9.4 D Imaging Radiology Impressions: ITS Impressions KUB X-Ray 07/22/20 17:13 IMPRESSION: Moderate volume of stool scattered in colon. No bowel obstruction. Medications Medications Current Medications Generic Name Dose Route Start Last Admin Trade Name Freq PRN Reason Stop Dose Admin Acetaminophen 650 mg 07/23/20 21:13 08/11/20 12:28 Acetaminophen 325 Mg Tablet PO 650 mg Q6H PRN Administration Headache/Pain Mild Scale (1-3) Al Hydroxide/Mg Hydroxide 30 ml 07/23/20 21:13 Magnesium Hydrox/Alum Hydrox 30 Ml Oral.Susp PO Q6H PRN Heartburn/Nausea Aspirin 81 mg 07/25/20 09:00 09/11/20 09:17 Aspirin Enteric Coated 81 Mg Tablet.Dr PO Not Given DAILY [facility] Atorvastatin Calcium 80 mg 07/23/20 21:00 09/10/20 20:26 Atorvastatin Calcium 80 Mg Tablet PO 80 mg BEDTIME [facility] Administration Clopidogrel Bisulfate 75 mg 07/23/20 17:00 09/11/20 09:17 Clopidogrel Bisulfate 75 Mg Tablet PO Not Given DAILY [facility] Clozapine 25 mg 08/15/20 09:00 09/11/20 09:02 Clozapine 25 Mg Tablet PO 25 mg DAILY [facility] Administration Ferrous Sulfate 324 mg 09/02/20 09:00 09/11/20 09:17 Ferrous Sulfate 324 Mg Tablet.Dr PO Not Given DAILY [facility] Finasteride 5 mg 07/23/20 17:00 09/11/20 09:18 Finasteride 5 Mg Tablet PO Not Given DAILY [facility] Hydroxyzine HCl 25 mg 07/23/20 21:13 08/17/20 03:00 Hydroxyzine Hcl 25 Mg Tablet PO 25 mg BEDTIME PRN Administration Anxiety Lisinopril 2.5 mg 08/18/20 09:00 09/11/20 09:18 Lisinopril 2.5 Mg Tablet PO Not Given DAILY [facility] Protocol Loperamide HCl 2 mg 07/24/20 15:43 07/24/20 15:54 Loperamide Hcl 2 Mg Capsule PO 2 mg Q4H PRN Administration Diarrhea Magnesium Hydroxide 30 ml 07/23/20 21:13 Milk Of Magnesia 30 Ml Oral.Susp PO DAILY PRN Constipation Metformin HCl 500 mg 08/14/20 17:00 09/11/20 09:17 Metformin Hcl 500 Mg Tablet PO Not Given BIDWM [facility] Metoprolol Succinate 75 mg 07/23/20 17:00 09/11/20 09:19 Metoprolol Succinate Er 25 Mg Tab.Er.24h PO Not Given DAILY [facility] Protocol Multi-Ingred Cream/Lotion/Oil/Oint 1 appl 07/24/20 21:00 09/11/20 12:47 Mineral Oil/Petrolatum,White 106 Gm Tube TOPICAL Not Given BID [facility] Patient Own 1 each 08/14/20 10:27 08/14/20 12:06 Medication (Thera PO 1 each Breath Dry Mouth Q4H PRN Administration Lozenge) Dry Mouth Patient Own 1 each 08/14/20 10:30 09/11/20 12:48 Medication (Biotene PO Not Given 15 Ml) BID [facility] Nystatin 1 appl 07/26/20 19:25 09/11/20 12:47 Nystatin Cream 15 Gm Tube TOPICAL Not Given DAILY [facility] Protocol Olanzapine 10 mg 08/21/20 21:07 Olanzapine Odt 10 Mg Tab.Rapdis TRANSLINGU BID PRN severe agitation,aggression Omeprazole 20 mg 07/24/20 06:30 09/11/20 09:17 Omeprazole 20 Mg Capsule. PO Not Given DAILY@0630 [facility] Ondansetron HCl 4 mg 08/08/20 09:04 08/08/20 09:27 Ondansetron Odt 4 Mg Tab.Rapdis TRANSLINGU 4 mg Q6H PRN Administration Nausea Saliva Substitute 1 spray 08/12/20 15:06 Dry Mouth [place] 30 Ml [place] MUCOUS MEM Q2H PRN Dry Mouth Tamsulosin HCl 0.4 mg 07/25/20 21:00 09/10/20 20:26 Tamsulosin Hcl 0.4 Mg Capsule PO 0.4 mg BEDTIME [facility] Administration Trazodone HCl 50 mg 07/23/20 21:13 08/17/20 03:00 Trazodone Hcl 50 Mg Tablet PO 50 mg BEDTIME PRN Administration Insomnia Vitamin D 50 mcg 07/23/20 21:00 09/10/20 20:26 Cholecalciferol (Vitamin D3) 25 Mcg Tablet PO 50 mcg BEDTIME [facility] Administration Allergies Allergies Allergy/AdvReac Type Severity Reaction Status Date / Time No Known Allergies Allergy Verified 07/21/20 16:39 Assessment & Plan Assessment & Plan (1) Schizophrenia, paranoid, subchronic with acute exacerbation: Status: Acute Code(s): F20.0 - Paranoid schizophrenia Assessment and Plan: d/c lovenox for now Clozaril compliance is inconsistent currently. Will keep dosage at 25 mg to avoid adverse response. Jesse's ammendment process continues to move forward. Paperwork is submitted to the court. Continue 0ne to [facility] pt as he will allow. [place] building. Continue to offer items to improve comfort and well being. Continue to assess appropriateness to implement Jesse's addendum prior to court approval. prison planning for care. Greater than 50% of the session was spent on counseling and/or coordination of care Reason for contiued inpatient stay Substantial Risk for: harm to self, harm to others, inability to function, rapid decompensation and med/psych decompensation
[2020-09-11] MEDS: Tamsulosin HCL 0.4 MG CAPSULE PO (20:46)
[2020-09-12] MEDS: cloZAPine 25 MG TABLET PO (09:10)
[2020-09-12 09:18] VITALS: BP 135/63; PULSE 91
--- NOTE | 2020-09-12 14:13 | MHC.CLN ---
NUTRITION FOLLOW UP PATIENT WITH SIGNIFICANT WEIGHT LOSS X 1 MONTH, -23.3#, 6.2%. RECENT INTAKE APPROXIMATELY 25-50%. ATE FISH AT [facility] TODAY AFTER BROTHER TASTED FISH FIRST. TRIALLED PATIENT TODAY WITH COLD, CHOCOLATE ENSURE. WILLING TO TASTE AFTER AID TRIED IT FIRST. DRANK WELL FROM A CUP AND WILLING TO TAKE SUPPLEMENT. TOLD HIM THAT IT WOULD BE DELIVERED TWO TIMES DAILY.
--- NOTE | 2020-09-12 17:01 | HO.PSYCHPN ---
Subjective Subjective Date of Service: 09/12/20 Reason For Visit: psychosis Subjective Notes: Conditional Voluntary Healthcare Proxy: Yes Guardianship: Yes ([place] amendment pending) Medical Problems Affecting Mental Status: No Interim History: Team reports pt has increased intake, has had improved sleep last night and has accepted medications. He reports high levels of depression, however, his compliance with care and treatment has increased since his brother arrived for a visit on 09/11. Medication Compliance: Yes Side effects from medications: No Attending Groups: No Review of Systems Review of Systems Yes Unobtainable due to mental status Reports behavioral changes and Reports confusion Psychiatric: Reports abnormal sleep pattern, Reports behavioral changes, Reports change in appetite, Reports confusion, Reports depression, Reports difficulty concentrating, Reports auditory hallucinations and Reports paranoia Mental Status Exam Mental Status Exam Patient Appearance: Appropriate Patient Orientation: Person and Place Level of Consciousness: Alert Patient Behavior: Guarded, Talkative, Cooperative, Suspicious, Anxious, Avoidant, Fatigued, Distractible and Isolative Mood Description: Constricted and Depressed Affect Description: Constricted Patient Cognition Impaired: Yes Ability to Follow Directions: Fair Speech Pattern: Perseverating, Spontaneous Speech, Cofabulation and Delayed Memory Description: Remote Impaired and Episodic Impaired Hallucinations: Auditory Delusions: Being Controlled, Paranoid Ideation and Present Perceptual Disturbances: Depersonalization and Derealization Thought Process: Rumination Thought Content: positive for Thought Blocking and positive for Tangential Depressive Symptoms: Increased Anxiety, Significant Weight Loss, Increased Fatigue, Loss of Energy and Difficulty Concentrating Judgement: Poor Diagnostics Vital Signs (24Hr): Vital Signs - 24 hr 09/12/20 09:18 Pulse Rate 91 Blood Pressure 135/63 Body Mass Index 38.1 Labs Results: 09/10/20 14:10 09/10/20 14:10 Imaging Radiology Impressions: ITS Impressions KUB X-Ray 07/22/20 17:13 IMPRESSION: Moderate volume of stool scattered in colon. No bowel obstruction. Medications Medications Current Medications Generic Name Dose Route Start Last Admin Trade Name Freq PRN Reason Stop Dose Admin Acetaminophen 650 mg 07/23/20 21:13 08/11/20 12:28 Acetaminophen 325 Mg Tablet PO 650 mg Q6H PRN Administration Headache/Pain Mild Scale (1-3) Al Hydroxide/Mg Hydroxide 30 ml 07/23/20 21:13 Magnesium Hydrox/Alum Hydrox 30 Ml Oral.Susp PO Q6H PRN Heartburn/Nausea Aspirin 81 mg 07/25/20 09:00 09/12/20 09:17 Aspirin Enteric Coated 81 Mg Tablet. PO Not Given DAILY [facility] Atorvastatin Calcium 80 mg 07/23/20 21:00 09/11/20 20:55 Atorvastatin Calcium 80 Mg Tablet PO Not Given BEDTIME [facility] Clopidogrel Bisulfate 75 mg 07/23/20 17:00 09/12/20 09:17 Clopidogrel Bisulfate 75 Mg Tablet PO Not Given DAILY [facility] Clozapine 25 mg 08/15/20 09:00 09/12/20 09:10 Clozapine 25 Mg Tablet PO 25 mg DAILY [facility] Administration Ferrous Sulfate 324 mg 09/02/20 09:00 09/12/20 09:17 Ferrous Sulfate 324 Mg Tablet. PO Not Given DAILY [facility] Finasteride 5 mg 07/23/20 17:00 09/12/20 09:18 Finasteride 5 Mg Tablet PO Not Given DAILY [facility] Hydroxyzine HCl 25 mg 07/23/20 21:13 08/17/20 03:00 Hydroxyzine Hcl 25 Mg Tablet PO 25 mg BEDTIME PRN Administration Anxiety Lisinopril 2.5 mg 08/18/20 09:00 09/12/20 09:18 Lisinopril 2.5 Mg Tablet PO Not Given DAILY [facility] Protocol Loperamide HCl 2 mg 07/24/20 15:43 07/24/20 15:54 Loperamide Hcl 2 Mg Capsule PO 2 mg Q4H PRN Administration Diarrhea Magnesium Hydroxide 30 ml 07/23/20 21:13 Milk Of Magnesia 30 Ml Oral.Susp PO DAILY PRN Constipation Metformin HCl 500 mg 08/14/20 17:00 09/12/20 09:17 Metformin Hcl 500 Mg Tablet PO Not Given BIDWM [facility] Metoprolol Succinate 75 mg 07/23/20 17:00 09/12/20 09:18 Metoprolol Succinate Er 25 Mg Tab.Er.24h PO Not Given DAILY [facility] Protocol Multi-Ingred Cream/Lotion/Oil/Oint 1 appl 07/24/20 21:00 09/12/20 09:19 Mineral Oil/Petrolatum,White 106 Gm Tube TOPICAL Not Given BID [facility] Patient Own 1 each 08/14/20 10:27 08/14/20 12:06 Medication (Thera PO 1 each Breath Dry Mouth Q4H PRN Administration Lozenge) Dry Mouth Patient Own 1 each 08/14/20 10:30 09/12/20 09:19 Medication (Biotene PO Not Given 15 Ml) BID [facility] Nystatin 1 appl 07/26/20 19:25 09/12/20 09:19 Nystatin Cream 15 Gm Tube TOPICAL Not Given DAILY [facility] Protocol Olanzapine 10 mg 08/21/20 21:07 Olanzapine Odt 10 Mg Tab.Rapdis TRANSLINGU BID PRN severe agitation,aggression Omeprazole 20 mg 07/24/20 06:30 09/12/20 09:17 Omeprazole 20 Mg Capsule.Dr PO Not Given DAILY@0630 [facility] Ondansetron HCl 4 mg 08/08/20 09:04 08/08/20 09:27 Ondansetron Odt 4 Mg Tab.Rapdis TRANSLINGU 4 mg Q6H PRN Administration Nausea Saliva Substitute 1 spray 08/12/20 15:06 Dry Mouth [place] 30 Ml [place] MUCOUS MEM Q2H PRN Dry Mouth Tamsulosin HCl 0.4 mg 07/25/20 21:00 09/11/20 20:46 Tamsulosin Hcl 0.4 Mg Capsule PO 0.4 mg BEDTIME [facility] Administration Trazodone HCl 50 mg 07/23/20 21:13 08/17/20 03:00 Trazodone Hcl 50 Mg Tablet PO 50 mg BEDTIME PRN Administration Insomnia Vitamin D 50 mcg 07/23/20 21:00 09/11/20 20:56 Cholecalciferol (Vitamin D3) 25 Mcg Tablet PO Not Given BEDTIME [facility] Allergies Allergies Allergy/AdvReac Type Severity Reaction Status Date / Time No Known Allergies Allergy Verified 07/21/20 16:39 Assessment & Plan Assessment & Plan (1) Schizophrenia, paranoid, subchronic with acute exacerbation: Status: Acute Code(s): F20.0 - Paranoid schizophrenia Assessment and Plan: d/c lovenox for now Clozaril compliance is inconsistent currently. Will keep dosage at 25 mg to avoid adverse response. Jesse's ammendment process continues to move forward. Paperwork is submitted to the court. Continue 0ne to [facility] pt as he will allow. [place] building. Continue to offer items to improve comfort and well being. Continue to assess appropriateness to implement Jesse's addendum prior to court approval. [facility] planning for care. Greater than 50% of the session was spent on counseling and/or coordination of care Reason for contiued inpatient stay Substantial Risk for: harm to self, inability to function, rapid decompensation and med/psych decompensation
[2020-09-13] MEDS: cloZAPine 25 MG TABLET PO (16:42)
[2020-09-13] MEDS: metFORMIN HCl 500 MG TABLET PO (16:42)
--- NOTE | 2020-09-13 20:23 | HO.PSYCHPN ---
Subjective Subjective Date of Service: 09/13/20 Reason For Visit: psychosis Interim History: Patient seen, chart reviewed, case discussed with nursing staff Patient difficult to engage; he responds with very few words. Patient reports that who's OK. He says that he has auditory hallucinations but that they are better. patient said he did take his medication yesterday but not today. When asked why he said ?I don't know. I thought they're not good for me;? however he could not elaborate. Veneer Grader asked patient to reconsider but patient did not answer. He said ?yes? his brother visited yesterday and that it was a ?good ? visit. He denied any complaints and had no requests. He denies any SI or HI> Medication Compliance: Intermittent Mental Status Exam Mental Status Exam Narrative: Patient Appearance: Appropriate Patient Orientation: Person and Place Level of Consciousness: Alert Patient Behavior: Guarded, Avoidant Mood Description: Depressed Affect Description: Constricted Patient Cognition Impaired: Yes Ability to Follow Directions: Fair to poor Speech Pattern: Delayed, sparse Memory Description: Remote Impaired and Episodic Impaired Hallucinations: Auditory Delusions: Being Controlled, Paranoid Ideation and Present Perceptual Disturbances: Depersonalization and Derealization Thought Process: concrete Thought Content: no SI or HI Judgment: Poor Diagnostics Vital Signs (24Hr): Body Mass Index 38.1 Labs Results: 09/10/20 14:10 09/10/20 14:10 Imaging Radiology Impressions: ITS Impressions KUB X-Ray 07/22/20 17:13 IMPRESSION: Moderate volume of stool scattered in colon. No bowel obstruction. Medications Medications Current Medications Generic Name Dose Route Start Last Admin Trade Name [place] PRN Reason Stop Dose Admin Acetaminophen 650 mg 07/23/20 21:13 08/11/20 12:28 Acetaminophen 325 Mg Tablet PO 650 mg Q6H PRN Administration Headache/Pain Mild Scale (1-3) Al Hydroxide/Mg Hydroxide 30 ml 07/23/20 21:13 Magnesium Hydrox/Alum Hydrox 30 Ml Oral.Susp PO Q6H PRN Heartburn/Nausea Aspirin 81 mg 07/25/20 09:00 09/13/20 14:41 Aspirin Enteric Coated 81 Mg Tablet. PO Not Given DAILY [facility] Atorvastatin Calcium 80 mg 07/23/20 21:00 09/13/20 00:34 Atorvastatin Calcium 80 Mg Tablet PO Not Given BEDTIME [facility] Clopidogrel Bisulfate 75 mg 07/23/20 17:00 09/13/20 14:42 Clopidogrel Bisulfate 75 Mg Tablet PO Not Given DAILY [facility] Clozapine 25 mg 08/15/20 09:00 09/13/20 16:42 Clozapine 25 Mg Tablet PO 25 mg DAILY [facility] Administration Ferrous Sulfate 324 mg 09/02/20 09:00 09/13/20 14:42 Ferrous Sulfate 324 Mg Tablet.Dr PO Not Given DAILY [facility] Finasteride 5 mg 07/23/20 17:00 09/13/20 14:42 Finasteride 5 Mg Tablet PO Not Given DAILY [facility] Hydroxyzine HCl 25 mg 07/23/20 21:13 08/17/20 03:00 Hydroxyzine Hcl 25 Mg Tablet PO 25 mg BEDTIME PRN Administration Anxiety Lisinopril 2.5 mg 08/18/20 09:00 09/13/20 14:43 Lisinopril 2.5 Mg Tablet PO Not Given DAILY [facility] Protocol Loperamide HCl 2 mg 07/24/20 15:43 07/24/20 15:54 Loperamide Hcl 2 Mg Capsule PO 2 mg Q4H PRN Administration Diarrhea Magnesium Hydroxide 30 ml 07/23/20 21:13 Milk Of Magnesia 30 Ml Oral.Susp PO DAILY PRN Constipation Metformin HCl 500 mg 08/14/20 17:00 09/13/20 16:42 Metformin Hcl 500 Mg Tablet PO 500 mg BIDWM [facility] Administration Metoprolol Succinate 75 mg 07/23/20 17:00 09/13/20 14:43 Metoprolol Succinate Er 25 Mg Tab.Er.24h PO Not Given DAILY [facility] Protocol Multi-Ingred Cream/Lotion/Oil/Oint 1 appl 07/24/20 21:00 09/13/20 14:43 Mineral Oil/Petrolatum,White 106 Gm Tube TOPICAL Not Given BID [facility] Patient Own 1 each 08/14/20 10:27 08/14/20 12:06 Medication (Thera PO 1 each Breath Dry Mouth Q4H PRN Administration Lozenge) Dry Mouth Patient Own 1 each 08/14/20 10:30 09/13/20 14:44 Medication (Biotene PO Not Given 15 Ml) BID [facility] Nystatin 1 appl 07/26/20 19:25 09/13/20 14:43 Nystatin Cream 15 Gm Tube TOPICAL Not Given DAILY [facility] Protocol Olanzapine 10 mg 08/21/20 21:07 Olanzapine Odt 10 Mg Tab.Rapdis TRANSLINGU BID PRN severe agitation,aggression Omeprazole 20 mg 07/24/20 06:30 09/13/20 06:36 Omeprazole 20 Mg Capsule.Dr PO Not Given DAILY@0630 [facility] Ondansetron HCl 4 mg 08/08/20 09:04 08/08/20 09:27 Ondansetron Odt 4 Mg Tab.Rapdis TRANSLINGU 4 mg Q6H PRN Administration Nausea Saliva Substitute 1 spray 08/12/20 15:06 Dry Mouth [place] 30 Ml [place] MUCOUS MEM Q2H PRN Dry Mouth Tamsulosin HCl 0.4 mg 07/25/20 21:00 09/13/20 00:34 Tamsulosin Hcl 0.4 Mg Capsule PO Not Given BEDTIME [facility] Trazodone HCl 50 mg 07/23/20 21:13 08/17/20 03:00 Trazodone Hcl 50 Mg Tablet PO 50 mg BEDTIME PRN Administration Insomnia Vitamin D 50 mcg 07/23/20 21:00 09/13/20 00:34 Cholecalciferol (Vitamin D3) 25 Mcg Tablet PO Not Given BEDTIME [facility] Allergies Allergies Allergy/AdvReac Type Severity Reaction Status Date / Time No Known Allergies Allergy Verified 07/21/20 16:39 Assessment & Plan Assessment & Plan (1) Schizophrenia, paranoid, subchronic with acute exacerbation: Status: Acute Code(s): F20.0 - Paranoid schizophrenia Assessment and Plan: journalists and other writers covering pt remains disorganized no changes to current tx plan d/c lovenox for now Clozaril compliance is inconsistent currently. Will keep dosage at 25 mg to avoid adverse response. Jesse's ammendment process continues to move forward. Paperwork is submitted to the court. Continue 0ne to [facility] pt as he will allow. [place] building. Continue to offer items to improve comfort and well being. Continue to assess appropriateness to implement Jesse's addendum prior to court approval. assistant terminal manager planning for care. Greater than 50% of the session was spent on counseling and/or coordination of care Reason for contiued inpatient stay Substantial Risk for: med/psych decompensation
[2020-09-13] MEDS: Tamsulosin HCL 0.4 MG CAPSULE PO (21:00)
[2020-09-14] MEDS: cloZAPine 25 MG TABLET PO (11:04)
[2020-09-14 18:00] VITALS: RESP 16
--- NOTE | 2020-09-14 18:44 | HO.PSYCHPN ---
Subjective Subjective Date of Service: 09/14/20 Reason For Visit: psychosis Interim History: Patient seen, chart reviewed, case discussed with nursing staff Patient more spontaneously talkative the television script writer has yet seen. patient says that he is doing alright. He agrees that Clozaril may be helping reduce auditory hallucinations and says he will take it today. television script writer shared that patient seems more present and involved in the conversation to which patient also agrees. Videographer asked about patience brother and family. Patient says he's about 6-7 and that his brother is 6-8. Their tallest brother is 7 foot 3. Mental Status Exam Mental Status Exam Narrative: Patient Appearance: Appropriate Patient Orientation: Person and Place and maybe situation! Level of Consciousness: Alert Patient Behavior: less Guarded, more present Mood Description: alright Affect Description: Constricted Patient Cognition Impaired: Yes Ability to Follow Directions: Fair Speech Pattern: a bit more spontaneous, less Delayed but still few words. Memory Description: Remote Impaired and Episodic Impaired Hallucinations: Auditory Delusions: reportedly Being Controlled, Paranoid Ideation and Present Perceptual Disturbances: Depersonalization and Derealization Thought Process: concrete Thought Content: no SI or HI Judgment: Poor, but perhaps improving Diagnostics Vital Signs (24Hr): Body Mass Index 38.1 Labs Results: 09/10/20 14:10 09/10/20 14:10 Imaging Radiology Impressions: ITS Impressions KUB X-Ray 07/22/20 17:13 IMPRESSION: Moderate volume of stool scattered in colon. No bowel obstruction. Medications Medications Current Medications Generic Name Dose Route Start Last Admin Trade Name Freq PRN Reason Stop Dose Admin Acetaminophen 650 mg 07/23/20 21:13 08/11/20 12:28 Acetaminophen 325 Mg Tablet PO 650 mg Q6H PRN Administration Headache/Pain Mild Scale (1-3) Al Hydroxide/Mg Hydroxide 30 ml 07/23/20 21:13 Magnesium Hydrox/Alum Hydrox 30 Ml Oral.Susp PO Q6H PRN Heartburn/Nausea Aspirin 81 mg 07/25/20 09:00 09/14/20 10:25 Aspirin Enteric Coated 81 Mg Tablet. PO Not Given DAILY [facility] Atorvastatin Calcium 80 mg 07/23/20 21:00 09/13/20 21:05 Atorvastatin Calcium 80 Mg Tablet PO Not Given BEDTIME [facility] Clopidogrel Bisulfate 75 mg 07/23/20 17:00 09/14/20 10:25 Clopidogrel Bisulfate 75 Mg Tablet PO Not Given DAILY [facility] Clozapine 25 mg 08/15/20 09:00 09/14/20 11:04 Clozapine 25 Mg Tablet PO 25 mg DAILY [facility] Administration Ferrous Sulfate 324 mg 09/02/20 09:00 09/14/20 10:26 Ferrous Sulfate 324 Mg Tablet.Dr PO Not Given DAILY [facility] Finasteride 5 mg 07/23/20 17:00 09/14/20 10:27 Finasteride 5 Mg Tablet PO Not Given DAILY [facility] Hydroxyzine HCl 25 mg 07/23/20 21:13 08/17/20 03:00 Hydroxyzine Hcl 25 Mg Tablet PO 25 mg BEDTIME PRN Administration Anxiety Lisinopril 2.5 mg 08/18/20 09:00 09/14/20 10:27 Lisinopril 2.5 Mg Tablet PO Not Given DAILY [facility] Protocol Loperamide HCl 2 mg 07/24/20 15:43 07/24/20 15:54 Loperamide Hcl 2 Mg Capsule PO 2 mg Q4H PRN Administration Diarrhea Magnesium Hydroxide 30 ml 07/23/20 21:13 Milk Of Magnesia 30 Ml Oral.Susp PO DAILY PRN Constipation Metformin HCl 500 mg 08/14/20 17:00 09/14/20 18:33 Metformin Hcl 500 Mg Tablet PO Not Given BIDWM [facility] Metoprolol Succinate 75 mg 07/23/20 17:00 09/14/20 10:27 Metoprolol Succinate Er 25 Mg Tab.Er.24h PO Not Given DAILY [facility] Protocol Multi-Ingred Cream/Lotion/Oil/Oint 1 appl 07/24/20 21:00 09/14/20 10:27 Mineral Oil/Petrolatum,White 106 Gm Tube TOPICAL Not Given BID [facility] Patient Own 1 each 08/14/20 10:27 08/14/20 12:06 Medication (Thera PO 1 each Breath Dry Mouth Q4H PRN Administration Lozenge) Dry Mouth Patient Own 1 each 08/14/20 10:30 09/14/20 10:28 Medication (Biotene PO Not Given 15 Ml) BID [facility] Nystatin 1 appl 07/26/20 19:25 09/14/20 10:28 Nystatin Cream 15 Gm Tube TOPICAL Not Given DAILY [facility] Protocol Olanzapine 10 mg 08/21/20 21:07 Olanzapine Odt 10 Mg Tab.Rapdis TRANSLINGU BID PRN severe agitation,aggression Omeprazole 20 mg 07/24/20 06:30 09/14/20 06:15 Omeprazole 20 Mg Capsule. PO Not Given DAILY@0630 [facility] Ondansetron HCl 4 mg 08/08/20 09:04 08/08/20 09:27 Ondansetron Odt 4 Mg Tab.Rapdis TRANSLINGU 4 mg Q6H PRN Administration Nausea Saliva Substitute 1 spray 08/12/20 15:06 Dry Mouth [place] 30 Ml [place] MUCOUS MEM Q2H PRN Dry Mouth Tamsulosin HCl 0.4 mg 07/25/20 21:00 09/13/20 21:00 Tamsulosin Hcl 0.4 Mg Capsule PO 0.4 mg BEDTIME [facility] Administration Trazodone HCl 50 mg 07/23/20 21:13 08/17/20 03:00 Trazodone Hcl 50 Mg Tablet PO 50 mg BEDTIME PRN Administration Insomnia Vitamin D 50 mcg 07/23/20 21:00 09/13/20 21:05 Cholecalciferol (Vitamin D3) 25 Mcg Tablet PO Not Given BEDTIME [facility] Allergies Allergies Allergy/AdvReac Type Severity Reaction Status Date / Time No Known Allergies Allergy Verified 07/21/20 16:39 Assessment & Plan Assessment & Plan (1) Schizophrenia, paranoid, subchronic with acute exacerbation: Status: Acute Code(s): F20.0 - Paranoid schizophrenia Assessment and Plan: television script writer covering pt remains disorganized, however seems to be more present in conversation with more spontaneous speech no changes to current tx plan d/c lovenox for now Clozaril compliance is inconsistent currently. Will keep dosage at 25 mg to avoid adverse response. Jesse's ammendment process continues to move forward. Paperwork is submitted to the court. Continue 0ne to [facility] pt as he will allow. [place] building. Continue to offer items to improve comfort and well being. Continue to assess appropriateness to implement Jesse's addendum prior to court approval. ad terminal makeup operator planning for care. Greater than 50% of the session was spent on counseling and/or coordination of care Reason for contiued inpatient stay Substantial Risk for: rapid decompensation
[2020-09-15] MEDS: cloZAPine 25 MG TABLET PO (08:29)
--- NOTE | 2020-09-15 17:05 | P.PNPSI_ITS ---
Subjective Subjective Date of Service: 09/15/20 Reason For Visit: psychosis Subjective Notes: Conditional Voluntary Healthcare Proxy: Yes Guardianship: Yes ([facility] amendment is pending.) Medical Problems Affecting Mental Status: No Interim History: Juan continues symptomatic-today he showered, did accept medications, ate minimally and will wave and talk superfically with tw but will not address questions as it relates to symptoms. Overall compliance is with some improvement. Reports voices are still active and command in nature, ordering movement and exercise. Review of Systems Reports behavioral changes Psychiatric: Reports behavioral changes, Reports change in appetite, Reports difficulty concentrating, Reports auditory hallucinations and Reports paranoia Mental Status Exam Mental Status Exam Patient Appearance: Disheveled Patient Orientation: Person Level of Consciousness: Awake Patient Behavior: Guarded, Talkative and Suspicious Mood Description: Constricted Affect Description: Constricted Patient Cognition Impaired: Yes Ability to Follow Directions: Fair Speech Pattern: Perseverating and Spontaneous Speech Memory Description: Remote Impaired, Immediate Impaired and Episodic Impaired Hallucinations: Auditory Delusions: Being Controlled, Paranoid Ideation and Present Thought Process: Illogical and Distracted Thought Content: positive for [place], positive for Perseveration, positive for Poverty of Content and positive for Tangential Depressive Symptoms: Diff. Making Decisions, Difficulty Sleeping, Changes in Appetite, Significant Weight Loss, Increased Fatigue, Loss of Energy and Difficulty Concentrating Abnormal Motor Activity Signs and Symptoms: Restlessness Judgement: Poor Diagnostics Vital Signs (24Hr): Vital Signs - 24 hr 09/14/20 18:00 Respiratory Rate 16 Body Mass Index 38.1 Labs Results: 09/10/20 14:10 09/10/20 14:10 Imaging Radiology Impressions: ITS Impressions KUB X-Ray 07/22/20 17:13 IMPRESSION: Moderate volume of stool scattered in colon. No bowel obstruction. Medications Medications Current Medications Generic Name Dose Route Start Last Admin Trade Name Freq PRN Reason Stop Dose Admin Acetaminophen 650 mg 07/23/20 21:13 08/11/20 12:28 Acetaminophen 325 Mg Tablet PO 650 mg Q6H PRN Administration Headache/Pain Mild Scale (1-3) Al Hydroxide/Mg Hydroxide 30 ml 07/23/20 21:13 Magnesium Hydrox/Alum Hydrox 30 Ml Oral.Susp PO Q6H PRN Heartburn/Nausea Aspirin 81 mg 07/25/20 09:00 09/15/20 08:33 Aspirin Enteric Coated 81 Mg Tablet.Dr PO Not Given DAILY [facility] Atorvastatin Calcium 80 mg 07/23/20 21:00 09/14/20 20:04 Atorvastatin Calcium 80 Mg Tablet PO Not Given BEDTIME [facility] Clopidogrel Bisulfate 75 mg 07/23/20 17:00 09/15/20 08:33 Clopidogrel Bisulfate 75 Mg Tablet PO Not Given DAILY [facility] Clozapine 25 mg 08/15/20 09:00 09/15/20 08:29 Clozapine 25 Mg Tablet PO 25 mg DAILY [facility] Administration Ferrous Sulfate 324 mg 09/02/20 09:00 09/15/20 08:33 Ferrous Sulfate 324 Mg Tablet. PO Not Given DAILY [facility] Finasteride 5 mg 07/23/20 17:00 09/15/20 08:33 Finasteride 5 Mg Tablet PO Not Given DAILY [facility] Hydroxyzine HCl 25 mg 07/23/20 21:13 08/17/20 03:00 Hydroxyzine Hcl 25 Mg Tablet PO 25 mg BEDTIME PRN Administration Anxiety Lisinopril 2.5 mg 08/18/20 09:00 09/15/20 08:33 Lisinopril 2.5 Mg Tablet PO Not Given DAILY [facility] Protocol Loperamide HCl 2 mg 07/24/20 15:43 07/24/20 15:54 Loperamide Hcl 2 Mg Capsule PO 2 mg Q4H PRN Administration Diarrhea Magnesium Hydroxide 30 ml 07/23/20 21:13 Milk Of Magnesia 30 Ml Oral.Susp PO DAILY PRN Constipation Metformin HCl 500 mg 08/14/20 17:00 09/15/20 08:33 Metformin Hcl 500 Mg Tablet PO Not Given BIDWM [facility] Metoprolol Succinate 75 mg 07/23/20 17:00 09/15/20 08:33 Metoprolol Succinate Er 25 Mg Tab.Er.24h PO Not Given DAILY [facility] Protocol Multi-Ingred Cream/Lotion/Oil/Oint 1 appl 07/24/20 21:00 09/15/20 08:34 Mineral Oil/Petrolatum,White 106 Gm Tube TOPICAL Not Given BID [facility] Patient Own 1 each 08/14/20 10:27 08/14/20 12:06 Medication (Thera PO 1 each Breath Dry Mouth Q4H PRN Administration Lozenge) Dry Mouth Patient Own 1 each 08/14/20 10:30 09/15/20 08:34 Medication (Biotene PO Not Given 15 Ml) BID [facility] Nystatin 1 appl 07/26/20 19:25 09/15/20 08:34 Nystatin Cream 15 Gm Tube TOPICAL Not Given DAILY [facility] Protocol Olanzapine 10 mg 08/21/20 21:07 Olanzapine Odt 10 Mg Tab.Rapdis TRANSLINGU BID PRN severe agitation,aggression Omeprazole 20 mg 07/24/20 06:30 09/15/20 06:13 Omeprazole 20 Mg Capsule.Dr PO Not Given DAILY@0630 [facility] Ondansetron HCl 4 mg 08/08/20 09:04 08/08/20 09:27 Ondansetron Odt 4 Mg Tab.Rapdis TRANSLINGU 4 mg Q6H PRN Administration Nausea Saliva Substitute 1 spray 08/12/20 15:06 Dry Mouth [place] 30 Ml [place] MUCOUS MEM Q2H PRN Dry Mouth Tamsulosin HCl 0.4 mg 07/25/20 21:00 09/14/20 20:05 Tamsulosin Hcl 0.4 Mg Capsule PO Not Given BEDTIME [facility] Trazodone HCl 50 mg 07/23/20 21:13 08/17/20 03:00 Trazodone Hcl 50 Mg Tablet PO 50 mg BEDTIME PRN Administration Insomnia Vitamin D 50 mcg 07/23/20 21:00 09/14/20 20:05 Cholecalciferol (Vitamin D3) 25 Mcg Tablet PO Not Given BEDTIME [facility] Allergies Allergies Allergy/AdvReac Type Severity Reaction Status Date / Time No Known Allergies Allergy Verified 07/21/20 16:39 Assessment & Plan Assessment & Plan (1) Schizophrenia, paranoid, subchronic with acute exacerbation: Status: Acute Code(s): F20.0 - Paranoid schizophrenia Assessment and Plan: d/c lovenox for now Clozaril compliance is inconsistent currently. Will keep dosage at 25 mg to avoid adverse response. Jesse's ammendment process continues to move forward. Paperwork is submitted to the court. Continue 0ne to [facility] pt as he will allow. [place] building. Continue to offer items to improve comfort and well being. Continue to assess appropriateness to implement Jesse's addendum prior to court approval. [facility] planning for care. Greater than 50% of the session was spent on counseling and/or coordination of care Reason for contiued inpatient stay Substantial Risk for: harm to self, inability to function, rapid decompensation and med/psych decompensation
[2020-09-15 18:00] VITALS: RESP 16
[2020-09-16 10:25] VITALS: BP 136/85; PULSE 88
[2020-09-16 10:26] VITALS: BP 136/85; PULSE 88
[2020-09-16] MEDS: cloZAPine 25 MG TABLET PO (11:08)
--- NOTE | 2020-09-16 14:25 | HO.PSYCHPN ---
Subjective Subjective Date of Service: 09/16/20 Reason For Visit: psychosis Subjective Notes: Conditional Voluntary Healthcare Proxy: Yes Guardianship: Yes ([facility] [place]) Medical Problems Affecting Mental Status: No Interim History: Juan was visited by his brother today who shaved his hair and jonas. He received much positive attention from team and peers with this change and he appeared to be able to accept this support with relief and comfort. He was able to eat for his brother as well today, but informed his brother that he knows his brother believes he is his brother but Juan is not convinced. This is very difficult and saddening for brother to accept. Juan continues to respond to internal stimuli, experience perceptual alterations and resulting fear and distress. We hope to hear about his [place] amendment by 09/19/20. Medication Compliance: Intermittent Side effects from medications: No Attending Groups: No Review of Systems Reports behavioral changes and Reports confusion Psychiatric: Reports abnormal sleep pattern, Reports anxiety, Reports behavioral changes, Reports change in appetite, Reports confusion, Reports depression, Reports difficulty concentrating, Reports auditory hallucinations, Reports hopelessness, Reports irritability, Reports anhedonia, Reports mood swings, Reports paranoia and Reports suicidal ideation (denies) Mental Status Exam Mental Status Exam Patient Appearance: Appropriate Patient Orientation: Person and Place Level of Consciousness: Alert Patient Behavior: Guarded, Talkative, Cooperative, Suspicious, Anxious, Fearful, Resistive to Care, Avoidant, Distractible, Isolative and Good Eye Contact Mood Description: Suspicious, Withdrawn, Constricted, Fearful and Anxious Affect Description: Constricted Patient Cognition Impaired: Yes Ability to Follow Directions: Good Speech Pattern: Spontaneous Speech, Soft-Spoken, Delayed and Long Pauses Memory Description: Remote Impaired and Episodic Impaired Hallucinations: Auditory Delusions: Being Controlled and Paranoid Ideation Perceptual Disturbances: Depersonalization and Derealization Thought Process: Illogical and Distracted Thought Content: positive for Thought Blocking, positive for Tangential, positive for Disorganized and positive for Suicidal Ideation (denies) Depressive Symptoms: Insomnia, Difficulty Sleeping, Changes in Appetite, Significant Weight Loss, Isolating-Friends/Family, Unhappiness and Difficulty Concentrating Abnormal Motor Activity Signs and Symptoms: Restlessness Judgement: Poor Diagnostics Vital Signs (24Hr): Vital Signs - 24 hr 09/15/20 18:00 09/16/20 10:25 09/16/20 10:26 Pulse Rate 88 88 Respiratory Rate 16 Blood Pressure 136/85 136/85 Body Mass Index 38.1 Labs Results: 09/10/20 14:10 09/10/20 14:10 Imaging Radiology Impressions: ITS Impressions KUB X-Ray 07/22/20 17:13 IMPRESSION: Moderate volume of stool scattered in colon. No bowel obstruction. Medications Medications Current Medications Generic Name Dose Route Start Last Admin Trade Name Freq PRN Reason Stop Dose Admin Acetaminophen 650 mg 07/23/20 21:13 08/11/20 12:28 Acetaminophen 325 Mg Tablet PO 650 mg Q6H PRN Administration Headache/Pain Mild Scale (1-3) Al Hydroxide/Mg Hydroxide 30 ml 07/23/20 21:13 Magnesium Hydrox/Alum Hydrox 30 Ml Oral.Susp PO Q6H PRN Heartburn/Nausea Aspirin 81 mg 07/25/20 09:00 09/16/20 10:23 Aspirin Enteric Coated 81 Mg Tablet.Dr PO Not Given DAILY [facility] Atorvastatin Calcium 80 mg 07/23/20 21:00 09/15/20 20:45 Atorvastatin Calcium 80 Mg Tablet PO Not Given BEDTIME [facility] Clopidogrel Bisulfate 75 mg 07/23/20 17:00 09/16/20 10:23 Clopidogrel Bisulfate 75 Mg Tablet PO Not Given DAILY [facility] Clozapine 25 mg 08/15/20 09:00 09/16/20 11:08 Clozapine 25 Mg Tablet PO 25 mg DAILY [facility] Administration Ferrous Sulfate 324 mg 09/02/20 09:00 09/16/20 10:25 Ferrous Sulfate 324 Mg Tablet.Dr PO Not Given DAILY [facility] Finasteride 5 mg 07/23/20 17:00 09/16/20 10:25 Finasteride 5 Mg Tablet PO Not Given DAILY [facility] Hydroxyzine HCl 25 mg 07/23/20 21:13 08/17/20 03:00 Hydroxyzine Hcl 25 Mg Tablet PO 25 mg BEDTIME PRN Administration Anxiety Lisinopril 2.5 mg 08/18/20 09:00 09/16/20 10:25 Lisinopril 2.5 Mg Tablet PO Not Given DAILY [facility] Protocol Loperamide HCl 2 mg 07/24/20 15:43 07/24/20 15:54 Loperamide Hcl 2 Mg Capsule PO 2 mg Q4H PRN Administration Diarrhea Magnesium Hydroxide 30 ml 07/23/20 21:13 Milk Of Magnesia 30 Ml Oral.Susp PO DAILY PRN Constipation Metformin HCl 500 mg 08/14/20 17:00 09/16/20 10:23 Metformin Hcl 500 Mg Tablet PO Not Given BIDWM [facility] Metoprolol Succinate 75 mg 07/23/20 17:00 09/16/20 10:26 Metoprolol Succinate Er 25 Mg Tab.Er.24h PO Not Given DAILY [facility] Protocol Multi-Ingred Cream/Lotion/Oil/Oint 1 appl 07/24/20 21:00 09/16/20 10:26 Mineral Oil/Petrolatum,White 106 Gm Tube TOPICAL Not Given BID [facility] Patient Own 1 each 08/14/20 10:27 08/14/20 12:06 Medication (Thera PO 1 each Breath Dry Mouth Q4H PRN Administration Lozenge) Dry Mouth Patient Own 1 each 08/14/20 10:30 09/16/20 10:27 Medication (Biotene PO Not Given 15 Ml) BID [facility] Nystatin 1 appl 07/26/20 19:25 09/16/20 10:26 Nystatin Cream 15 Gm Tube TOPICAL Not Given DAILY [facility] Protocol Olanzapine 10 mg 08/21/20 21:07 Olanzapine Odt 10 Mg Tab.Rapdis TRANSLINGU BID PRN severe agitation,aggression Omeprazole 20 mg 07/24/20 06:30 09/16/20 10:23 Omeprazole 20 Mg Capsule.Dr PO Not Given DAILY@0630 [facility] Ondansetron HCl 4 mg 08/08/20 09:04 08/08/20 09:27 Ondansetron Odt 4 Mg Tab.Rapdis TRANSLINGU 4 mg Q6H PRN Administration Nausea Saliva Substitute 1 spray 08/12/20 15:06 Dry Mouth [place] 30 Ml [place] MUCOUS MEM Q2H PRN Dry Mouth Tamsulosin HCl 0.4 mg 07/25/20 21:00 09/15/20 20:45 Tamsulosin Hcl 0.4 Mg Capsule PO Not Given BEDTIME [facility] Trazodone HCl 50 mg 07/23/20 21:13 08/17/20 03:00 Trazodone Hcl 50 Mg Tablet PO 50 mg BEDTIME PRN Administration Insomnia Vitamin D 50 mcg 07/23/20 21:00 09/15/20 20:45 Cholecalciferol (Vitamin D3) 25 Mcg Tablet PO Not Given BEDTIME [facility] Allergies Allergies Allergy/AdvReac Type Severity Reaction Status Date / Time No Known Allergies Allergy Verified 07/21/20 16:39 Assessment & Plan Assessment & Plan (1) Schizophrenia, paranoid, subchronic with acute exacerbation: Status: Acute Code(s): F20.0 - Paranoid schizophrenia Assessment and Plan: d/c lovenox for now Clozaril compliance is inconsistent currently. Will keep dosage at 25 mg to avoid adverse response. Jesse's ammendment process continues to move forward. Paperwork is submitted to the court. Continue 0ne to [facility] pt as he will allow. [place] building. Continue to offer items to improve comfort and well being. Continue to assess appropriateness to implement Jesse's addendum prior to court approval. halfway planning for care. Greater than 50% of the session was spent on counseling and/or coordination of care Reason for contiued inpatient stay Substantial Risk for: harm to self, inability to function, rapid decompensation and med/psych decompensation
[2020-09-16] MEDS: metFORMIN HCl 500 MG TABLET PO (16:47)
[2020-09-16] MEDS: Tamsulosin HCL 0.4 MG CAPSULE PO (21:29)
[2020-09-17 08:23] LABS: White Blood Count 7.4 X10*3/uL (4.8-10.8)
[2020-09-17 08:54] LABS: Estimated Glomerular Filt Rate > 60
[2020-09-17 09:02] LABS: MANUAL DIFF FLAG NO
[2020-09-17 09:04] LABS: Basophils Percent Auto 0.4 % (0-2); Eosinophils Absolute Auto 0.2 X10*3/uL (0.0-0.4); Eosinophils Percent Auto 2.2 % (0-4); Hematocrit 35.2 % (42-52); Hemoglobin 10.9 g/dl (14.0-18.0); Imm Gran Abs Auto 0.03 X10*3/uL (0.00-0.03); Imm Gran Pct Auto 0.4 % (0.0-0.4); Lymphocytes Absolute Auto 2.6 X10*3/uL (1.2-4.9); Lymphocytes Percent Auto 35.6 % (20-40); Mean Corpuscular Hemoglobin 26.6 pg (27.0-33.0); Mean Corpuscular Volume 85.9 fL (80-98); Mean Platelet Volume 10.6 fL (9.4-12.4); Monocytes Absolute Auto 0.8 X10*3/uL (0.1-1.2); Monocytes Percent Auto 10.8 % (2-11); Neutrophils Absolute Auto 3.7 X10*3/uL (2.0-8.3); Neutrophils Percent Auto 50.6 % (45-73); Platelet Count 362 X10*3/uL (160-400); Red Cell Distribution Width 18.4 % (11.0-16.0)
[2020-09-17 12:00] VITALS: BP 160/66; PULSE 102
[2020-09-17] MEDS: cloZAPine 25 MG TABLET PO (12:14)
--- NOTE | 2020-09-17 12:43 | HO.PSYCHPN ---
Subjective Subjective Date of Service: 09/17/20 Reason For Visit: psychosis Subjective Notes: Conditional Voluntary Healthcare Proxy: No Guardianship: Yes ([facility] amendment pending) Medical Problems Affecting Mental Status: No Interim History: Continues on one to one. Visable in milieu. Responsive to interaction without initiation. Observant, tolerant of groups of peers being around him without any evidence of fear or angst. Medication Compliance: Intermittent Side effects from medications: No Attending Groups: No Review of Systems Reports behavioral changes and Reports confusion Psychiatric: Reports behavioral changes, Reports change in appetite, Reports confusion, Reports difficulty concentrating, Reports auditory hallucinations, Reports irritability, Reports mood swings, Reports paranoia and Reports suicidal ideation (denies) Mental Status Exam Mental Status Exam Patient Appearance: Appropriate Patient Orientation: Person and Place Level of Consciousness: Alert Patient Behavior: Guarded, Suspicious, Resistive to Care, Avoidant, Distractible, Isolative and Good Eye Contact Mood Description: Constricted Affect Description: Constricted Patient Cognition Impaired: Yes Ability to Follow Directions: Fair Speech Pattern: Spontaneous Speech, Soft-Spoken, Cofabulation and Long Pauses Memory Description: Remote Impaired and Episodic Impaired Hallucinations: Auditory Delusions: Being Controlled, Paranoid Ideation and Present Perceptual Disturbances: Derealization Thought Process: Illogical, Distracted and Evasive Thought Content: positive for [place], positive for Preoccupation, positive for Disorganized, positive for Evasive and positive for Suicidal Ideation (denies) Depressive Symptoms: Diff. Making Decisions, Difficulty Sleeping, Changes in Appetite, Significant Weight Loss, Loss of Int. in Activity, Isolating-Friends/Family, Increased Fatigue, Thoughts of /Suicide (denies) and Difficulty Concentrating Judgement: Poor Diagnostics Vital Signs (24Hr): Vital Signs - 24 hr 09/17/20 12:00 Pulse Rate 102 H Blood Pressure 160/66 H Body Mass Index 38.1 Labs Results: 09/17/20 08:02 09/17/20 08:02 Labs: Laboratory Results - last 48 hr 09/17/20 09/17/20 08:02 08:02 WBC 7.4 RBC 4.10 L Hgb 10.9 L Hct 35.2 L MCV 85.9 MCH 26.6 L MCHC 31.0 RDW 18.4 H Plt Count 362 MPV 10.6 Immature Gran % (Auto) 0.4 Neut % (Auto) 50.6 Lymph % (Auto) 35.6 [place] % (Auto) 10.8 Eos % (Auto) 2.2 Baso % (Auto) 0.4 Lymph # (Auto) 2.6 [place] # (Auto) 0.8 Eos # (Auto) 0.2 Baso # (Auto) 0.0 Abs Immat Gran (auto) 0.03 Absolute Neuts (auto) 3.7 Absolute Nucleated RBC 0.000 Nucleated RBC % (auto) 0.0 Creatinine 0.82 Estim Creat Clear Calc 159.0 Estimated GFR > 60 Imaging Radiology Impressions: ITS Impressions KUB X-Ray 07/22/20 17:13 IMPRESSION: Moderate volume of stool scattered in colon. No bowel obstruction. Medications Medications Current Medications Generic Name Dose Route Start Last Admin Trade Name Freq PRN Reason Stop Dose Admin Acetaminophen 650 mg 07/23/20 21:13 08/11/20 12:28 Acetaminophen 325 Mg Tablet PO 650 mg Q6H PRN Administration Headache/Pain Mild Scale (1-3) Al Hydroxide/Mg Hydroxide 30 ml 07/23/20 21:13 Magnesium Hydrox/Alum Hydrox 30 Ml Oral.Susp PO Q6H PRN Heartburn/Nausea Aspirin 81 mg 07/25/20 09:00 09/17/20 12:14 Aspirin Enteric Coated 81 Mg Tablet. PO Not Given DAILY [facility] Atorvastatin Calcium 80 mg 07/23/20 21:00 09/16/20 21:32 Atorvastatin Calcium 80 Mg Tablet PO Not Given BEDTIME [facility] Clopidogrel Bisulfate 75 mg 07/23/20 17:00 09/17/20 12:14 Clopidogrel Bisulfate 75 Mg Tablet PO Not Given DAILY [facility] Clozapine 25 mg 08/15/20 09:00 09/17/20 12:14 Clozapine 25 Mg Tablet PO 25 mg DAILY [facility] Administration Ferrous Sulfate 324 mg 09/02/20 09:00 09/17/20 12:14 Ferrous Sulfate 324 Mg Tablet. PO Not Given DAILY [facility] Finasteride 5 mg 07/23/20 17:00 09/17/20 12:15 Finasteride 5 Mg Tablet PO Not Given DAILY [facility] Hydroxyzine HCl 25 mg 07/23/20 21:13 08/17/20 03:00 Hydroxyzine Hcl 25 Mg Tablet PO 25 mg BEDTIME PRN Administration Anxiety Lisinopril 2.5 mg 08/18/20 09:00 09/17/20 12:00 Lisinopril 2.5 Mg Tablet PO Not Given DAILY [facility] Protocol Loperamide HCl 2 mg 07/24/20 15:43 07/24/20 15:54 Loperamide Hcl 2 Mg Capsule PO 2 mg Q4H PRN Administration Diarrhea Magnesium Hydroxide 30 ml 07/23/20 21:13 Milk Of Magnesia 30 Ml Oral.Susp PO DAILY PRN Constipation Metformin HCl 500 mg 08/14/20 17:00 09/17/20 08:57 Metformin Hcl 500 Mg Tablet PO Not Given BIDWM [facility] Metoprolol Succinate 75 mg 07/23/20 17:00 09/17/20 12:17 Metoprolol Succinate Er 25 Mg Tab.Er.24h PO Not Given DAILY [facility] Protocol Multi-Ingred Cream/Lotion/Oil/Oint 1 appl 07/24/20 21:00 09/17/20 12:17 Mineral Oil/Petrolatum,White 106 Gm Tube TOPICAL Not Given BID [facility] Patient Own 1 each 08/14/20 10:27 08/14/20 12:06 Medication (Thera PO 1 each Breath Dry Mouth Q4H PRN Administration Lozenge) Dry Mouth Patient Own 1 each 08/14/20 10:30 09/17/20 12:18 Medication (Biotene PO Not Given 15 Ml) BID [facility] Nystatin 1 appl 07/26/20 19:25 09/17/20 12:17 Nystatin Cream 15 Gm Tube TOPICAL Not Given DAILY [facility] Protocol Olanzapine 10 mg 08/21/20 21:07 Olanzapine Odt 10 Mg Tab.Rapdis TRANSLINGU BID PRN severe agitation,aggression Omeprazole 20 mg 07/24/20 06:30 09/17/20 08:57 Omeprazole 20 Mg Capsule.Dr PO Not Given DAILY@0630 [facility] Ondansetron HCl 4 mg 08/08/20 09:04 08/08/20 09:27 Ondansetron Odt 4 Mg Tab.Rapdis TRANSLINGU 4 mg Q6H PRN Administration Nausea Saliva Substitute 1 spray 08/12/20 15:06 Dry Mouth [place] 30 Ml [place] MUCOUS MEM Q2H PRN Dry Mouth Tamsulosin HCl 0.4 mg 07/25/20 21:00 09/16/20 21:29 Tamsulosin Hcl 0.4 Mg Capsule PO 0.4 mg BEDTIME [facility] Administration Trazodone HCl 50 mg 07/23/20 21:13 08/17/20 03:00 Trazodone Hcl 50 Mg Tablet PO 50 mg BEDTIME PRN Administration Insomnia Vitamin D 50 mcg 07/23/20 21:00 09/16/20 21:33 Cholecalciferol (Vitamin D3) 25 Mcg Tablet PO Not Given BEDTIME [facility] Allergies Allergies Allergy/AdvReac Type Severity Reaction Status Date / Time No Known Allergies Allergy Verified 07/21/20 16:39 Assessment & Plan Assessment & Plan (1) Schizophrenia, paranoid, subchronic with acute exacerbation: Status: Acute Code(s): F20.0 - Paranoid schizophrenia Assessment and Plan: d/c lovenox for now Clozaril compliance is inconsistent currently. Will keep dosage at 25 mg to avoid adverse response. Jesse's ammendment process continues to move forward. Paperwork is submitted to the court. Continue 0ne to [facility] pt as he will allow. [place] building. Continue to offer items to improve comfort and well being. Continue to assess appropriateness to implement Jesse's addendum prior to court approval. skilled nursing planning for care. Greater than 50% of the session was spent on counseling and/or coordination of care Reason for contiued inpatient stay Substantial Risk for: harm to self, inability to function, rapid decompensation and med/psych decompensation
[2020-09-17 18:00] VITALS: BP 133/63; PULSE 103; RESP 18; O2SAT 96
[2020-09-17] MEDS: Cholecalciferol (Vitamin D3) 25 MCG TABLET 50 MCG PO (21:05)
[2020-09-17] MEDS: Tamsulosin HCL 0.4 MG CAPSULE PO (21:05)
[2020-09-17] MEDS: Atorvastatin Calcium 80 MG TABLET PO (21:05)
[2020-09-18 07:00] VITALS: BMI 38.5
--- NOTE | 2020-09-18 17:07 | P.PNPSI_ITS ---
Subjective Subjective Date of Service: 09/18/20 Reason For Visit: psychosis Subjective Notes: Conditional Voluntary Healthcare Proxy: Yes Guardianship: Yes ([place] amendment is pending) Medical Problems Affecting Mental Status: No Interim History: Juan continues on one to one special. He is calm, visable in milieu, quiet but able to be in a group setting. We await court approval of [place] amendment expected 09/19. He continues to struggle with responses to internal stimuli and sort out what is best for him in moving forward. Medication Compliance: No (off Clozaril for two days.) Side effects from medications: No Attending Groups: No Review of Systems Reports confusion Psychiatric: Reports abnormal sleep pattern (sleeping is improving), Reports change in appetite, Reports confusion, Reports depression, Reports difficulty concentrating, Reports auditory hallucinations, Reports anhedonia, Reports paranoia and Reports suicidal ideation (denies) Mental Status Exam Mental Status Exam Patient Appearance: Appropriate Patient Orientation: Person and Place Level of Consciousness: Alert Patient Behavior: Guarded, Suspicious, Fearful, Resistive to Care and Poor Eye Contact Mood Description: Constricted Affect Description: Constricted Patient Cognition Impaired: Yes Ability to Follow Directions: Fair Speech Pattern: Perseverating, Spontaneous Speech, Soft-Spoken and Long Pauses Memory Description: Remote Impaired and Episodic Impaired Hallucinations: Auditory Delusions: Being Controlled, Paranoid Ideation and Present Perceptual Disturbances: Depersonalization and Derealization Thought Process: Illogical and Distracted Thought Content: positive for Circumstantial, positive for Perseveration, positive for Thought Blocking, positive for Tangential and positive for Suicidal Ideation (denies) Depressive Symptoms: Insomnia, Difficulty Sleeping, Changes in Appetite, Significant Weight Loss, Loss of Int. in Activity, Isolating-Friends/Family, Thoughts of /Suicide (denies) and Difficulty Concentrating Abnormal Motor Activity Signs and Symptoms: Restlessness Judgement: Poor Diagnostics Vital Signs (24Hr): Vital Signs - 24 hr 09/17/20 18:00 Pulse Rate 103 H Respiratory Rate 18 Blood Pressure 133/63 Pulse Oximetry 96 Body Mass Index 38.1 Labs Results: 09/19/20 14:28 09/19/20 14:28 Labs: Laboratory Results - last 48 hr 09/17/20 09/17/20 08:02 08:02 WBC 7.4 RBC 4.10 L Hgb 10.9 L Hct 35.2 L MCV 85.9 MCH 26.6 L MCHC 31.0 RDW 18.4 H Plt Count 362 MPV 10.6 Immature Gran % (Auto) 0.4 Neut % (Auto) 50.6 Lymph % (Auto) 35.6 [place] % (Auto) 10.8 Eos % (Auto) 2.2 Baso % (Auto) 0.4 Lymph # (Auto) 2.6 [place] # (Auto) 0.8 Eos # (Auto) 0.2 Baso # (Auto) 0.0 Abs Immat Gran (auto) 0.03 Absolute Neuts (auto) 3.7 Absolute Nucleated RBC 0.000 Nucleated RBC % (auto) 0.0 Creatinine 0.82 Estim Creat Clear Calc 159.0 Estimated GFR > 60 Imaging Radiology Impressions: ITS Impressions KUB X-Ray 07/22/20 17:13 IMPRESSION: Moderate volume of stool scattered in colon. No bowel obstruction. Medications Medications Current Medications Generic Name Dose Route Start Last Admin Trade Name Freq PRN Reason Stop Dose Admin Acetaminophen 650 mg 07/23/20 21:13 08/11/20 12:28 Acetaminophen 325 Mg Tablet PO 650 mg Q6H PRN Administration Headache/Pain Mild Scale (1-3) Al Hydroxide/Mg Hydroxide 30 ml 07/23/20 21:13 Magnesium Hydrox/Alum Hydrox 30 Ml Oral.Susp PO Q6H PRN Heartburn/Nausea Aspirin 81 mg 07/25/20 09:00 09/18/20 09:40 Aspirin Enteric Coated 81 Mg Tablet. PO Not Given DAILY [facility] Atorvastatin Calcium 80 mg 07/23/20 21:00 09/17/20 21:05 Atorvastatin Calcium 80 Mg Tablet PO 80 mg BEDTIME [facility] Administration Clopidogrel Bisulfate 75 mg 07/23/20 17:00 09/18/20 09:40 Clopidogrel Bisulfate 75 Mg Tablet PO Not Given DAILY [facility] Clozapine 25 mg 08/15/20 09:00 09/18/20 08:41 Clozapine 25 Mg Tablet PO Not Given DAILY [facility] Ferrous Sulfate 324 mg 09/02/20 09:00 09/18/20 09:40 Ferrous Sulfate 324 Mg Tablet. PO Not Given DAILY [facility] Finasteride 5 mg 07/23/20 17:00 09/18/20 09:40 Finasteride 5 Mg Tablet PO Not Given DAILY [facility] Hydroxyzine HCl 25 mg 07/23/20 21:13 08/17/20 03:00 Hydroxyzine Hcl 25 Mg Tablet PO 25 mg BEDTIME PRN Administration Anxiety Lisinopril 2.5 mg 08/18/20 09:00 09/18/20 09:40 Lisinopril 2.5 Mg Tablet PO Not Given DAILY [facility] Protocol Loperamide HCl 2 mg 07/24/20 15:43 07/24/20 15:54 Loperamide Hcl 2 Mg Capsule PO 2 mg Q4H PRN Administration Diarrhea Magnesium Hydroxide 30 ml 07/23/20 21:13 Milk Of Magnesia 30 Ml Oral.Susp PO DAILY PRN Constipation Metformin HCl 500 mg 08/14/20 17:00 09/18/20 09:40 Metformin Hcl 500 Mg Tablet PO Not Given BIDWM [facility] Metoprolol Succinate 75 mg 07/23/20 17:00 09/18/20 09:40 Metoprolol Succinate Er 25 Mg Tab.Er.24h PO Not Given DAILY [facility] Protocol Multi-Ingred Cream/Lotion/Oil/Oint 1 appl 07/24/20 21:00 09/18/20 09:41 Mineral Oil/Petrolatum,White 106 Gm Tube TOPICAL Not Given BID [facility] Patient Own 1 each 08/14/20 10:27 08/14/20 12:06 Medication (Thera PO 1 each Breath Dry Mouth Q4H PRN Administration Lozenge) Dry Mouth Patient Own 1 each 08/14/20 10:30 09/18/20 09:41 Medication (Biotene PO Not Given 15 Ml) BID [facility] Nystatin 1 appl 07/26/20 19:25 09/18/20 09:41 Nystatin Cream 15 Gm Tube TOPICAL Not Given DAILY [facility] Protocol Olanzapine 10 mg 08/21/20 21:07 Olanzapine Odt 10 Mg Tab.Rapdis TRANSLINGU BID PRN severe agitation,aggression Omeprazole 20 mg 07/24/20 06:30 09/18/20 09:40 Omeprazole 20 Mg Capsule.Dr PO Not Given DAILY@0630 [facility] Ondansetron HCl 4 mg 08/08/20 09:04 08/08/20 09:27 Ondansetron Odt 4 Mg Tab.Rapdis TRANSLINGU 4 mg Q6H PRN Administration Nausea Saliva Substitute 1 spray 08/12/20 15:06 Dry Mouth [place] 30 Ml [place] MUCOUS MEM Q2H PRN Dry Mouth Tamsulosin HCl 0.4 mg 07/25/20 21:00 09/17/20 21:05 Tamsulosin Hcl 0.4 Mg Capsule PO 0.4 mg BEDTIME [facility] Administration Trazodone HCl 50 mg 07/23/20 21:13 08/17/20 03:00 Trazodone Hcl 50 Mg Tablet PO 50 mg BEDTIME PRN Administration Insomnia Vitamin D 50 mcg 07/23/20 21:00 09/17/20 21:05 Cholecalciferol (Vitamin D3) 25 Mcg Tablet PO 50 mcg BEDTIME [facility] Administration Allergies Allergies Allergy/AdvReac Type Severity Reaction Status Date / Time No Known Allergies Allergy Verified 07/21/20 16:39 Assessment & Plan Assessment & Plan (1) Schizophrenia, paranoid, subchronic with acute exacerbation: Status: Acute Code(s): F20.0 - Paranoid schizophrenia Assessment and Plan: d/c lovenox for now Clozaril compliance is inconsistent currently. Will keep dosage at 25 mg to avoid adverse response. Jesse's ammendment process continues to move forward. Paperwork is submitted to the court. Continue 0ne to [facility] pt as he will allow. [place] building. Continue to offer items to impro ve comfort and well being. Continue to assess appropriateness to implement Jesse's addendum prior to court approval. intermediate planning for care. Greater than 50% of the session was spent on counseling and/or coordination of care Reason for contiued inpatient stay Substantial Risk for: harm to self, harm to others, inability to function and rapid decompensation
[2020-09-18 18:00] VITALS: RESP 16
--- NOTE | 2020-09-19 | ECG_ITS ---
Test Reason : MEDS Blood Pressure : / mmHG Vent. Rate : 100 BPM Atrial Rate : 100 BPM P-R Int : 132 ms QRS Dur : 082 ms QT Int : 344 ms P-R-T Axes : 076 043 059 degrees QTc Int : 443 ms Normal sinus rhythm Low voltage QRS Borderline ECG When compared with ECG of 10-SEP-2020 13:46, No significant change was found Referred By: Marissa Griffiths Electronically Signed By:René Gomes
[2020-09-19 14:33] LABS: MANUAL DIFF FLAG NO
[2020-09-19 14:35] LABS: Basophils Percent Auto 0.3 % (0-2); Eosinophils Absolute Auto 0.1 X10*3/uL (0.0-0.4); Eosinophils Percent Auto 1.3 % (0-4); Hematocrit 34.3 % (42-52); Hemoglobin 10.4 g/dl (14.0-18.0); Imm Gran Abs Auto 0.01 X10*3/uL (0.00-0.03); Imm Gran Pct Auto 0.1 % (0.0-0.4); Lymphocytes Percent Auto 26.5 % (20-40); Mean Corpuscular HGB Conc 30.3 g/dl (31.0-36.0); Mean Corpuscular Hemoglobin 26.3 pg (27.0-33.0); Mean Corpuscular Volume 86.8 fL (80-98); Mean Platelet Volume 9.9 fL (9.4-12.4); Monocytes Absolute Auto 0.7 X10*3/uL (0.1-1.2); Monocytes Percent Auto 8.8 % (2-11); Neutrophils Absolute Auto 4.7 X10*3/uL (2.0-8.3); Platelet Count 294 X10*3/uL (160-400); Red Blood Count 3.95 X10*6/uL (4.60-5.80); Red Cell Distribution Width 18.2 % (11.0-16.0); White Blood Count 7.5 X10*3/uL (4.8-10.8)
[2020-09-19 15:07] LABS: Alanine Aminotransferase 42 U/L (0-40); Albumin Level 3.5 g/dL (3.5-5.0); Alkaline Phosphatase 62 U/L (39-117); Anion Gap 13 (12-20); Aspartate Amino Transferase 29 U/L (5-37); Bilirubin Total 0.8 mg/dL (0.0-1.0); Blood Urea Nitrogen 13 mg/dL (9-16); Calcium 9.1 mg/dL (8.4-10.2); Carbon Dioxide 29 mmol/L (22-29); Chloride 107 mmol/L (96-108); Creatinine Clr Calc Pharmacy 132.4; Estimated Glomerular Filt Rate > 60; Glucose Random 134 mg/dL (60-115); Potassium 4.5 mmol/L (3.3-5.1); Sodium 144 mmol/L (135-145)
[2020-09-19] MEDS: fluPHENAZine HCl 1 MG TABLET 0.5 MG PO (15:21)
--- NOTE | 2020-09-19 17:46 | P.PNPSI_ITS ---
Subjective Subjective Date of Service: 09/19/20 Reason For Visit: psychosis Subjective Notes: Conditional Voluntary Healthcare Proxy: Yes Guardianship: No Medical Problems Affecting Mental Status: No Interim History: Juan's Jesse's amendment was authorized today. He had refused Clozapine for the past two days, so we initated Prolixin 0.5 mg and he accepted his first dose with his brother's support. Labs, EKG ordered. Juan remains on one to one. He continues to respond to internal stimuli and appears fatigued today but responsive alert and attentive. We discussed this being the beginning to treatment to help him to return to his home. Medication Compliance: Yes (Refused Clozaril, accepted Prolixin with brothers support) Side effects from medications: No Attending Groups: No Review of Systems Reports behavioral changes Psychiatric: Reports abnormal sleep pattern, Reports behavioral changes, Reports change in appetite, Reports difficulty concentrating, Reports auditory hallucinations, Reports anhedonia, Reports paranoia, Reports hallucinations and Reports suicidal ideation (denies) Mental Status Exam Mental Status Exam Patient Appearance: Appropriate Patient Orientation: Person, Place, Time and Situation Level of Consciousness: Alert Patient Behavior: Guarded, Suspicious and Poor Eye Contact Mood Description: Constricted Affect Description: Constricted Patient Cognition Impaired: Yes Ability to Follow Directions: Fair Speech Pattern: Spontaneous Speech Memory Description: Remote Impaired and Episodic Impaired Hallucinations: Auditory Delusions: Paranoid Ideation and Present Perceptual Disturbances: Derealization Thought Process: Illogical and Distracted Thought Content: positive for Thought Blocking and positive for Tangential Depressive Symptoms: Difficulty Sleeping, Changes in Appetite, Loss of Int. in Activity and Difficulty Concentrating Judgement: Poor Diagnostics Vital Signs (24Hr): Vital Signs - 24 hr 09/18/20 18:00 Respiratory Rate 16 Body Mass Index 38.5 Labs Results: 09/19/20 14:28 09/19/20 14:28 Labs: Laboratory Results - last 48 hr 09/19/20 09/19/20 14:28 14:28 WBC 7.5 RBC 3.95 L Hgb 10.4 L Hct 34.3 L MCV 86.8 MCH 26.3 L MCHC 30.3 L RDW 18.2 H Plt Count 294 MPV 9.9 Immature Gran % (Auto) 0.1 Neut % (Auto) 63.0 Lymph % (Auto) 26.5 [place] % (Auto) 8.8 Eos % (Auto) 1.3 Baso % (Auto) 0.3 Lymph # (Auto) 2.0 [place] # (Auto) 0.7 Eos # (Auto) 0.1 Baso # (Auto) 0.0 Abs Immat Gran (auto) 0.01 Absolute Neuts (auto) 4.7 Absolute Nucleated RBC 0.000 Nucleated RBC % (auto) 0.0 Sodium 144 Potassium 4.5 Chloride 107 Carbon Dioxide 29 Anion Gap 13 BUN 13 Creatinine 0.99 Estim Creat Clear Calc 132.4 Estimated GFR > 60 Random Glucose 134 H D Calcium 9.1 Total Bilirubin 0.8 AST 29 ALT 42 H Alkaline Phosphatase 62 Total Protein 6.0 L Albumin 3.5 Imaging Radiology Impressions: ITS Impressions KUB X-Ray 07/22/20 17:13 IMPRESSION: Moderate volume of stool scattered in colon. No bowel obstruction. Medications Medications Current Medications Generic Name Dose Route Start Last Admin Trade Name Freq PRN Reason Stop Dose Admin Acetaminophen 650 mg 07/23/20 21:13 08/11/20 12:28 Acetaminophen 325 Mg Tablet PO 650 mg Q6H PRN Administration Headache/Pain Mild Scale (1-3) Al Hydroxide/Mg Hydroxide 30 ml 07/23/20 21:13 Magnesium Hydrox/Alum Hydrox 30 Ml Oral.Susp PO Q6H PRN Heartburn/Nausea Aspirin 81 mg 07/25/20 09:00 09/19/20 09:40 Aspirin Enteric Coated 81 Mg Tablet. PO Not Given DAILY [facility] Atorvastatin Calcium 80 mg 07/23/20 21:00 09/18/20 20:57 Atorvastatin Calcium 80 Mg Tablet PO Not Given BEDTIME [facility] Clopidogrel Bisulfate 75 mg 07/23/20 17:00 09/19/20 09:40 Clopidogrel Bisulfate 75 Mg Tablet PO Not Given DAILY [facility] Ferrous Sulfate 324 mg 09/02/20 09:00 09/19/20 09:40 Ferrous Sulfate 324 Mg Tablet. PO Not Given DAILY [facility] Finasteride 5 mg 07/23/20 17:00 09/19/20 09:40 Finasteride 5 Mg Tablet PO Not Given DAILY [facility] Hydroxyzine HCl 25 mg 07/23/20 21:13 08/17/20 03:00 Hydroxyzine Hcl 25 Mg Tablet PO 25 mg BEDTIME PRN Administration Anxiety Lisinopril 2.5 mg 08/18/20 09:00 09/19/20 09:41 Lisinopril 2.5 Mg Tablet PO Not Given DAILY [facility] Protocol Loperamide HCl 2 mg 07/24/20 15:43 07/24/20 15:54 Loperamide Hcl 2 Mg Capsule PO 2 mg Q4H PRN Administration Diarrhea Magnesium Hydroxide 30 ml 07/23/20 21:13 Milk Of Magnesia 30 Ml Oral.Susp PO DAILY PRN Constipation Metformin HCl 500 mg 08/14/20 17:00 09/19/20 16:55 Metformin Hcl 500 Mg Tablet PO Not Given BIDWM [facility] Metoprolol Succinate 75 mg 07/23/20 17:00 09/19/20 09:41 Metoprolol Succinate Er 25 Mg Tab.Er.24h PO Not Given DAILY [facility] Protocol Multi-Ingred Cream/Lotion/Oil/Oint 1 appl 07/24/20 21:00 09/19/20 09:41 Mineral Oil/Petrolatum,White 106 Gm Tube TOPICAL Not Given BID [facility] Patient Own 1 each 08/14/20 10:27 08/14/20 12:06 Medication (Thera PO 1 each Breath Dry Mouth Q4H PRN Administration Lozenge) Dry Mouth Patient Own 1 each 08/14/20 10:30 09/19/20 09:42 Medication (Biotene PO Not Given 15 Ml) BID [facility] Nystatin 1 appl 07/26/20 19:25 09/19/20 09:41 Nystatin Cream 15 Gm Tube TOPICAL Not Given DAILY [facility] Protocol Olanzapine 10 mg 08/21/20 21:07 Olanzapine Odt 10 Mg Tab.Rapdis TRANSLINGU BID PRN severe agitation,aggression Omeprazole 20 mg 07/24/20 06:30 09/19/20 08:20 Omeprazole 20 Mg Capsule.Dr PO Not Given DAILY@0630 [facility] Ondansetron HCl 4 mg 08/08/20 09:04 08/08/20 09:27 Ondansetron Odt 4 Mg Tab.Rapdis TRANSLINGU 4 mg Q6H PRN Administration Nausea Saliva Substitute 1 spray 08/12/20 15:06 Dry Mouth [place] 30 Ml [place] MUCOUS MEM Q2H PRN Dry Mouth Tamsulosin HCl 0.4 mg 07/25/20 21:00 09/18/20 20:57 Tamsulosin Hcl 0.4 Mg Capsule PO Not Given BEDTIME [facility] Trazodone HCl 50 mg 07/23/20 21:13 08/17/20 03:00 Trazodone Hcl 50 Mg Tablet PO 50 mg BEDTIME PRN Administration Insomnia Vitamin D 50 mcg 07/23/20 21:00 09/18/20 20:57 Cholecalciferol (Vitamin D3) 25 Mcg Tablet PO Not Given BEDTIME [facility] Allergies Allergies Allergy/AdvReac Type Severity Reaction Status Date / Time No Known Allergies Allergy Verified 07/21/20 16:39 Assessment & Plan Assessment & Plan (1) Schizophrenia, paranoid, subchronic with acute exacerbation: Status: Acute Code(s): F20.0 - Paranoid schizophrenia Assessment and Plan: Discontinue Clozaril Prolixin 0.5 mg today. Greater than 50% of the session was spent on counseling and/or coordination of care Reason for contiued inpatient stay Substantial Risk for: harm to self, inability to function, rapid decompensation and med/psych decompensation
[2020-09-20 11:57] VITALS: BP 108/58; PULSE 62
[2020-09-20] MEDS: fluPHENAZine HCl 1 MG TABLET PO (15:57)
[2020-09-20 18:00] VITALS: BP 121/56; PULSE 77
--- NOTE | 2020-09-20 18:18 | P.PNPSI_ITS ---
Subjective Subjective Date of Service: 09/20/20 Reason For Visit: psychosis Subjective Notes: Conditional Voluntary Healthcare Proxy: Yes Guardianship: Yes (Manuelito) Medical Problems Affecting Mental Status: No Interim History: Refused Prolixin this a.m. Discussed that the court had amended his Jesse's guardianship and we now would be giving him medicine daily-via PO or IM. and that the purpose of his treatment was symptom abatement, improved functionality and hopefully discharge home to continue his life. Pt, as a result, accepted PO Prolixin from evening team, Adela Betancourt APRN. Of note, his a.m. nursing team provided the same education and pt still refused-Unsure if pt is having difficulty with cognitive processing-will continue to monitor. Medication Compliance: Yes Side effects from medications: No Attending Groups: No Review of Systems Reports behavioral changes Psychiatric: Reports abnormal sleep pattern, Reports anxiety, Reports behavioral changes, Reports difficulty concentrating, Reports auditory hallucinations, Reports paranoia and Reports suicidal ideation (denies) Mental Status Exam Mental Status Exam Patient Appearance: Appropriate Patient Orientation: Person, Place, Time and Situation Level of Consciousness: Alert Patient Behavior: Asleep and Good Eye Contact Mood Description: Constricted Affect Description: Constricted Patient Cognition Impaired: Yes Ability to Follow Directions: Fair Speech Pattern: Spontaneous Speech Memory Description: Remote Impaired and Episodic Impaired Hallucinations: Auditory Delusions: Paranoid Ideation and Present Thought Process: Illogical and Distracted Thought Content: positive for [place], positive for Perseveration and positive for Thought Blocking Depressive Symptoms: Insomnia, Difficulty Sleeping and Changes in Appetite Judgement: Poor Diagnostics Vital Signs (24Hr): Vital Signs - 24 hr 09/20/20 11:57 Pulse Rate 62 Blood Pressure 108/58 L Body Mass Index 38.5 Labs Results: 09/19/20 14:28 09/19/20 14:28 Labs: Laboratory Results - last 48 hr 09/19/20 09/19/20 14:28 14:28 WBC 7.5 RBC 3.95 L Hgb 10.4 L Hct 34.3 L MCV 86.8 MCH 26.3 L MCHC 30.3 L RDW 18.2 H Plt Count 294 MPV 9.9 Immature Gran % (Auto) 0.1 Neut % (Auto) 63.0 Lymph % (Auto) 26.5 [place] % (Auto) 8.8 Eos % (Auto) 1.3 Baso % (Auto) 0.3 Lymph # (Auto) 2.0 [place] # (Auto) 0.7 Eos # (Auto) 0.1 Baso # (Auto) 0.0 Abs Immat Gran (auto) 0.01 Absolute Neuts (auto) 4.7 Absolute Nucleated RBC 0.000 Nucleated RBC % (auto) 0.0 Sodium 144 Potassium 4.5 Chloride 107 Carbon Dioxide 29 Anion Gap 13 BUN 13 Creatinine 0.99 Estim Creat Clear Calc 132.4 Estimated GFR > 60 Random Glucose 134 H D Calcium 9.1 Total Bilirubin 0.8 AST 29 ALT 42 H Alkaline Phosphatase 62 Total Protein 6.0 L Albumin 3.5 Imaging Radiology Impressions: ITS Impressions KUB X-Ray 07/22/20 17:13 IMPRESSION: Moderate volume of stool scattered in colon. No bowel obstruction. Medications Medications Current Medications Generic Name Dose Route Start Last Admin Trade Name Freq PRN Reason Stop Dose Admin Acetaminophen 650 mg 07/23/20 21:13 08/11/20 12:28 Acetaminophen 325 Mg Tablet PO 650 mg Q6H PRN Administration Headache/Pain Mild Scale (1-3) Al Hydroxide/Mg Hydroxide 30 ml 07/23/20 21:13 Magnesium Hydrox/Alum Hydrox 30 Ml Oral.Susp PO Q6H PRN Heartburn/Nausea Aspirin 81 mg 07/25/20 09:00 09/20/20 11:09 Aspirin Enteric Coated 81 Mg Tablet. PO Not Given DAILY [facility] Atorvastatin Calcium 80 mg 07/23/20 21:00 09/19/20 20:15 Atorvastatin Calcium 80 Mg Tablet PO Not Given BEDTIME [facility] Clopidogrel Bisulfate 75 mg 07/23/20 17:00 09/20/20 11:09 Clopidogrel Bisulfate 75 Mg Tablet PO Not Given DAILY [facility] Ferrous Sulfate 324 mg 09/02/20 09:00 09/20/20 11:09 Ferrous Sulfate 324 Mg Tablet. PO Not Given DAILY [facility] Finasteride 5 mg 07/23/20 17:00 09/20/20 11:10 Finasteride 5 Mg Tablet PO Not Given DAILY [facility] Fluphenazine HCl 1 mg 09/20/20 09:00 09/20/20 15:57 Fluphenazine Hcl 1 Mg Tablet PO 1 mg DAILY [facility] Administration Hydroxyzine HCl 25 mg 07/23/20 21:13 08/17/20 03:00 Hydroxyzine Hcl 25 Mg Tablet PO 25 mg BEDTIME PRN Administration Anxiety Lisinopril 2.5 mg 08/18/20 09:00 09/20/20 11:10 Lisinopril 2.5 Mg Tablet PO Not Given DAILY [facility] Protocol Loperamide HCl 2 mg 07/24/20 15:43 07/24/20 15:54 Loperamide Hcl 2 Mg Capsule PO 2 mg Q4H PRN Administration Diarrhea Magnesium Hydroxide 30 ml 07/23/20 21:13 Milk Of Magnesia 30 Ml Oral.Susp PO DAILY PRN Constipation Metformin HCl 500 mg 08/14/20 17:00 09/20/20 16:24 Metformin Hcl 500 Mg Tablet PO Not Given BIDWM [facility] Metoprolol Succinate 75 mg 07/23/20 17:00 09/20/20 11:10 Metoprolol Succinate Er 25 Mg Tab.Er.24h PO Not Given DAILY [facility] Protocol Multi-Ingred Cream/Lotion/Oil/Oint 1 appl 07/24/20 21:00 09/20/20 11:11 Mineral Oil/Petrolatum,White 106 Gm Tube TOPICAL Not Given BID [facility] Patient Own 1 each 08/14/20 10:27 08/14/20 12:06 Medication (Thera PO 1 each Breath Dry Mouth Q4H PRN Administration Lozenge) Dry Mouth Patient Own 1 each 08/14/20 10:30 09/20/20 11:10 Medication (Biotene PO Not Given 15 Ml) BID [facility] Nystatin 1 appl 07/26/20 19:25 09/20/20 11:11 Nystatin Cream 15 Gm Tube TOPICAL Not Given DAILY [facility] Protocol Olanzapine 10 mg 08/21/20 21:07 Olanzapine Odt 10 Mg Tab.Rapdis TRANSLINGU BID PRN severe agitation,aggression Olanzapine 5 mg 09/19/20 20:26 Olanzapine 10 Mg Vial IM DAILY PRN If ref prolixin po per court Omeprazole 20 mg 07/24/20 06:30 09/20/20 11:10 Omeprazole 20 Mg Capsule. PO Not Given DAILY@0630 [facility] Ondansetron HCl 4 mg 08/08/20 09:04 08/08/20 09:27 Ondansetron Odt 4 Mg Tab.Rapdis TRANSLINGU 4 mg Q6H PRN Administration Nausea Saliva Substitute 1 spray 08/12/20 15:06 Dry Mouth [place] 30 Ml [place] MUCOUS MEM Q2H PRN Dry Mouth Tamsulosin HCl 0.4 mg 07/25/20 21:00 09/19/20 20:16 Tamsulosin Hcl 0.4 Mg Capsule PO Not Given BEDTIME [facility] Trazodone HCl 50 mg 07/23/20 21:13 08/17/20 03:00 Trazodone Hcl 50 Mg Tablet PO 50 mg BEDTIME PRN Administration Insomnia Vitamin D 50 mcg 07/23/20 21:00 09/19/20 20:15 Cholecalciferol (Vitamin D3) 25 Mcg Tablet PO Not Given BEDTIME [facility] Allergies Allergies Allergy/AdvReac Type Severity Reaction Status Date / Time No Known Allergies Allergy Verified 07/21/20 16:39 Assessment & Plan Assessment & Plan (1) Schizophrenia, paranoid, subchronic with acute exacerbation: Status: Acute Code(s): F20.0 - Paranoid schizophrenia Assessment and Plan: Discontinue Clozaril Prolixin 1 mg today. Pt accepted this during the afternoon. Greater than 50% of the session was spent on counseling and/or coordination of care Reason for contiued inpatient stay Substantial Risk for: harm to self, inability to function and rapid decompensation
[2020-09-21] MEDS: fluPHENAZine HCl 1 MG TABLET PO (08:54)
--- NOTE | 2020-09-21 17:15 | P.PNPSI_ITS ---
Subjective Subjective Date of Service: 09/21/20 Reason For Visit: psychosis Interim History: Team reports pt is remaining in his room for the majority of the shifts, less ambulation, less exercise. Accepting medications with education regarding the amendment of the [facility] Review of Systems Reports behavioral changes Psychiatric: Reports abnormal sleep pattern, Reports behavioral changes, Reports change in appetite, Reports auditory hallucinations and Reports paranoia Mental Status Exam Mental Status Exam Patient Appearance: Fatigued Patient Orientation: Person and Place Level of Consciousness: Alert Patient Behavior: Guarded, Cooperative and Suspicious Mood Description: Constricted Affect Description: Constricted Patient Cognition Impaired: Yes Ability to Follow Directions: Fair Speech Pattern: Spontaneous Speech Memory Description: Remote Impaired and Episodic Impaired Hallucinations: Auditory Delusions: Paranoid Ideation and Present Thought Process: Distracted Thought Content: positive for [place] and positive for Thought Blocking Depressive Symptoms: Insomnia, Diff. Making Decisions, Difficulty Sleeping and Loss of Energy Judgement: Poor Diagnostics Vital Signs (24Hr): Vital Signs - 24 hr 09/20/20 18:00 Pulse Rate 77 Blood Pressure 121/56 L Body Mass Index 38.5 Labs Results: 09/19/20 14:28 09/19/20 14:28 Imaging Radiology Impressions: ITS Impressions KUB X-Ray 07/22/20 17:13 IMPRESSION: Moderate volume of stool scattered in colon. No bowel obstruction. Medications Medications Current Medications Generic Name Dose Route Start Last Admin Trade Name Freq PRN Reason Stop Dose Admin Acetaminophen 650 mg 07/23/20 21:13 08/11/20 12:28 Acetaminophen 325 Mg Tablet PO 650 mg Q6H PRN Administration Headache/Pain Mild Scale (1-3) Al Hydroxide/Mg Hydroxide 30 ml 07/23/20 21:13 Magnesium Hydrox/Alum Hydrox 30 Ml Oral.Susp PO Q6H PRN Heartburn/Nausea Aspirin 81 mg 07/25/20 09:00 09/21/20 08:59 Aspirin Enteric Coated 81 Mg Tablet. PO Not Given DAILY [facility] Atorvastatin Calcium 80 mg 07/23/20 21:00 09/20/20 20:02 Atorvastatin Calcium 80 Mg Tablet PO Not Given BEDTIME [facility] Clopidogrel Bisulfate 75 mg 07/23/20 17:00 09/21/20 08:59 Clopidogrel Bisulfate 75 Mg Tablet PO Not Given DAILY [facility] Ferrous Sulfate 324 mg 09/02/20 09:00 09/21/20 08:59 Ferrous Sulfate 324 Mg Tablet.Dr PO Not Given DAILY [facility] Finasteride 5 mg 07/23/20 17:00 09/21/20 09:00 Finasteride 5 Mg Tablet PO Not Given DAILY [facility] Fluphenazine HCl 1 mg 09/20/20 09:00 09/21/20 08:54 Fluphenazine Hcl 1 Mg Tablet PO 1 mg DAILY [facility] Administration Hydroxyzine HCl 25 mg 07/23/20 21:13 08/17/20 03:00 Hydroxyzine Hcl 25 Mg Tablet PO 25 mg BEDTIME PRN Administration Anxiety Lisinopril 2.5 mg 08/18/20 09:00 09/21/20 09:00 Lisinopril 2.5 Mg Tablet PO Not Given DAILY [facility] Protocol Loperamide HCl 2 mg 07/24/20 15:43 07/24/20 15:54 Loperamide Hcl 2 Mg Capsule PO 2 mg Q4H PRN Administration Diarrhea Magnesium Hydroxide 30 ml 07/23/20 21:13 Milk Of Magnesia 30 Ml Oral.Susp PO DAILY PRN Constipation Metformin HCl 500 mg 08/14/20 17:00 09/21/20 08:59 Metformin Hcl 500 Mg Tablet PO Not Given BIDWM [facility] Metoprolol Succinate 75 mg 07/23/20 17:00 09/21/20 09:00 Metoprolol Succinate Er 25 Mg Tab.Er.24h PO Not Given DAILY [facility] Protocol Multi-Ingred Cream/Lotion/Oil/Oint 1 appl 07/24/20 21:00 09/21/20 09:00 Mineral Oil/Petrolatum,White 106 Gm Tube TOPICAL Not Given BID [facility] Patient Own 1 each 08/14/20 10:27 08/14/20 12:06 Medication (Thera PO 1 each Breath Dry Mouth Q4H PRN Administration Lozenge) Dry Mouth Patient Own 1 each 08/14/20 10:30 09/21/20 09:00 Medication (Biotene PO Not Given 15 Ml) BID [facility] Nystatin 1 appl 07/26/20 19:25 09/21/20 09:00 Nystatin Cream 15 Gm Tube TOPICAL Not Given DAILY [facility] Protocol Olanzapine 10 mg 08/21/20 21:07 Olanzapine Odt 10 Mg Tab.Rapdis TRANSLINGU BID PRN severe agitation,aggression Olanzapine 5 mg 09/19/20 20:26 Olanzapine 10 Mg Vial IM DAILY PRN If ref prolixin po per court Omeprazole 20 mg 07/24/20 06:30 09/21/20 08:59 Omeprazole 20 Mg Capsule. PO Not Given DAILY@0630 [facility] Ondansetron HCl 4 mg 08/08/20 09:04 08/08/20 09:27 Ondansetron Odt 4 Mg Tab.Rapdis TRANSLINGU 4 mg Q6H PRN Administration Nausea Saliva Substitute 1 spray 08/12/20 15:06 Dry Mouth [place] 30 Ml [place] MUCOUS MEM Q2H PRN Dry Mouth Tamsulosin HCl 0.4 mg 07/25/20 21:00 09/20/20 20:03 Tamsulosin Hcl 0.4 Mg Capsule PO Not Given BEDTIME [facility] Trazodone HCl 50 mg 07/23/20 21:13 08/17/20 03:00 Trazodone Hcl 50 Mg Tablet PO 50 mg BEDTIME PRN Administration Insomnia Vitamin D 50 mcg 07/23/20 21:00 09/20/20 20:02 Cholecalciferol (Vitamin D3) 25 Mcg Tablet PO Not Given BEDTIME [facility] Allergies Allergies Allergy/AdvReac Type Severity Reaction Status Date / Time No Known Allergies Allergy Verified 07/21/20 16:39 Assessment & Plan Assessment & Plan (1) Schizophrenia, paranoid, subchronic with acute exacerbation: Status: Acute Code(s): F20.0 - Paranoid schizophrenia Assessment and Plan: Discontinue Clozaril Prolixin 1 mg daily with titration. Greater than 50% of the session was spent on counseling and/or coordination of care Reason for contiued inpatient stay Substantial Risk for: harm to self, inability to function, rapid decompensation and med/psych decompensation
[2020-09-22] MEDS: fluPHENAZine HCl 1 MG TABLET PO (08:52)
--- NOTE | 2020-09-22 09:54 | HO.PSYCHPN ---
Subjective Subjective Date of Service: 09/22/20 Reason For Visit: psychosis Subjective Notes: Conditional Voluntary Guardianship: Yes Interim History: Patient seen in his room was cooperative and verbal. Patient was calm clozapine has been discontinued patient started on Prolixin 1 mg patient was not aggressive he remains on one-to-one he is in a hospital bed Medication Compliance: Intermittent Mental Status Exam Mental Status Exam Patient Appearance: Fatigued Patient Orientation: Person and Place Level of Consciousness: Alert Patient Behavior: Guarded, Cooperative and Suspicious Mood Description: Constricted Affect Description: Constricted Patient Cognition Impaired: Yes Ability to Follow Directions: Fair Speech Pattern: Spontaneous Speech Memory Description: Remote Impaired and Episodic Impaired Hallucinations: Auditory Delusions: Paranoid Ideation and Present Thought Process: Distracted Thought Content: positive for Perseveration and positive for Thought Blocking Depressive Symptoms: Insomnia, Diff. Making Decisions, Difficulty Sleeping and Loss of Energy Judgement: Poor Diagnostics Vital Signs (24Hr): Body Mass Index 38.5 Labs Results: 09/19/20 14:28 09/19/20 14:28 Imaging Radiology Impressions: ITS Impressions KUB X-Ray 07/22/20 17:13 IMPRESSION: Moderate volume of stool scattered in colon. No bowel obstruction. Medications Medications Current Medications Generic Name Dose Route Start Last Admin Trade Name Freq PRN Reason Stop Dose Admin Acetaminophen 650 mg 07/23/20 21:13 08/11/20 12:28 Acetaminophen 325 Mg Tablet PO 650 mg Q6H PRN Administration Headache/Pain Mild Scale (1-3) Al Hydroxide/Mg Hydroxide 30 ml 07/23/20 21:13 Magnesium Hydrox/Alum Hydrox 30 Ml Oral.Susp PO Q6H PRN Heartburn/Nausea Aspirin 81 mg 07/25/20 09:00 09/21/20 08:59 Aspirin Enteric Coated 81 Mg Tablet. PO Not Given DAILY [facility] Atorvastatin Calcium 80 mg 07/23/20 21:00 09/21/20 20:39 Atorvastatin Calcium 80 Mg Tablet PO Not Given BEDTIME [facility] Clopidogrel Bisulfate 75 mg 07/23/20 17:00 09/21/20 08:59 Clopidogrel Bisulfate 75 Mg Tablet PO Not Given DAILY [facility] Ferrous Sulfate 324 mg 09/02/20 09:00 09/21/20 08:59 Ferrous Sulfate 324 Mg Tablet. PO Not Given DAILY [facility] Finasteride 5 mg 07/23/20 17:00 09/21/20 09:00 Finasteride 5 Mg Tablet PO Not Given DAILY [facility] Fluphenazine HCl 1 mg 09/20/20 09:00 09/22/20 08:52 Fluphenazine Hcl 1 Mg Tablet PO 1 mg DAILY [facility] Administration Hydroxyzine HCl 25 mg 07/23/20 21:13 08/17/20 03:00 Hydroxyzine Hcl 25 Mg Tablet PO 25 mg BEDTIME PRN Administration Anxiety Lisinopril 2.5 mg 08/18/20 09:00 09/21/20 09:00 Lisinopril 2.5 Mg Tablet PO Not Given DAILY [facility] Protocol Loperamide HCl 2 mg 07/24/20 15:43 07/24/20 15:54 Loperamide Hcl 2 Mg Capsule PO 2 mg Q4H PRN Administration Diarrhea Magnesium Hydroxide 30 ml 07/23/20 21:13 Milk Of Magnesia 30 Ml Oral.Susp PO DAILY PRN Constipation Metformin HCl 500 mg 08/14/20 17:00 09/21/20 17:20 Metformin Hcl 500 Mg Tablet PO Not Given BIDWM [facility] Metoprolol Succinate 75 mg 07/23/20 17:00 09/21/20 09:00 Metoprolol Succinate Er 25 Mg Tab.Er.24h PO Not Given DAILY [facility] Protocol Multi-Ingred Cream/Lotion/Oil/Oint 1 appl 07/24/20 21:00 09/21/20 20:40 Mineral Oil/Petrolatum,White 106 Gm Tube TOPICAL Not Given BID [facility] Patient Own 1 each 08/14/20 10:27 08/14/20 12:06 Medication (Thera PO 1 each Breath Dry Mouth Q4H PRN Administration Lozenge) Dry Mouth Patient Own 1 each 08/14/20 10:30 09/21/20 20:40 Medication (Biotene PO Not Given 15 Ml) BID [facility] Nystatin 1 appl 07/26/20 19:25 09/21/20 09:00 Nystatin Cream 15 Gm Tube TOPICAL Not Given DAILY [facility] Protocol Olanzapine 10 mg 08/21/20 21:07 Olanzapine Odt 10 Mg Tab.Rapdis TRANSLINGU BID PRN severe agitation,aggression Olanzapine 5 mg 09/19/20 20:26 Olanzapine 10 Mg Vial IM DAILY PRN If ref prolixin po per court Omeprazole 20 mg 07/24/20 06:30 09/21/20 08:59 Omeprazole 20 Mg Capsule. PO Not Given DAILY@0630 [facility] Ondansetron HCl 4 mg 08/08/20 09:04 08/08/20 09:27 Ondansetron Odt 4 Mg Tab.Rapdis TRANSLINGU 4 mg Q6H PRN Administration Nausea Saliva Substitute 1 spray 08/12/20 15:06 Dry Mouth [place] 30 Ml [place] MUCOUS MEM Q2H PRN Dry Mouth Tamsulosin HCl 0.4 mg 07/25/20 21:00 09/21/20 20:40 Tamsulosin Hcl 0.4 Mg Capsule PO Not Given BEDTIME [facility] Trazodone HCl 50 mg 07/23/20 21:13 08/17/20 03:00 Trazodone Hcl 50 Mg Tablet PO 50 mg BEDTIME PRN Administration Insomnia Vitamin D 50 mcg 07/23/20 21:00 09/21/20 20:39 Cholecalciferol (Vitamin D3) 25 Mcg Tablet PO Not Given BEDTIME [facility] Allergies Allergies Allergy/AdvReac Type Severity Reaction Status Date / Time No Known Allergies Allergy Verified 07/21/20 16:39 Assessment & Plan Assessment & Plan (1) Schizophrenia, paranoid, subchronic with acute exacerbation: Status: Acute Code(s): F20.0 - Paranoid schizophrenia Assessment and Plan: Discontinue Clozaril Prolixin inc 2 mg mg daily with titration. Greater than 50% of the session was spent on counseling and/or coordination of care Reason for contiued inpatient stay Substantial Risk for: inability to function and rapid decompensation
[2020-09-23] MEDS: OLANZapine 10 MG VIAL 5 MG IM (08:49)
[2020-09-23] MEDS: Ferrous Sulfate 324 MG TABLET.DR PO (13:53)
[2020-09-23] MEDS: Finasteride 5 MG TABLET PO (13:54)
--- NOTE | 2020-09-23 14:51 | P.PNPSI_ITS ---
Subjective Subjective Date of Service: 09/23/20 Reason For Visit: psychosis Subjective Notes: Conditional Voluntary Healthcare Proxy: Yes Guardianship: Yes (Yuri's Guardianship in community.) Medical Problems Affecting Mental Status: No Interim History: Juan has accepted Prolixin PO 09/20-09/22. Today he refused, and received Olanzapine IM. He was cooperative with the IM however team reports he was tearful. Met with pt to review new [place] order and new plan of his not being able to refuse treatment. Discussed rationale for treatment-he was teary. Brother joined the discussion senior living through and supported Juan receiving treatment as this will allow him a faster discharge and more time with his brother for some time together. Juan reports he is fearful of medicines-he briefly describes having SE which he does not want to repeat. Discussed PO meds vs IM. Pt prefers IM. Discussed continuing Prolixin and trialing long acting injection and he agrees. Will attempt Prolixin Decanoate trial by the end of the week with probably oral coverage. Medication Compliance: Yes Side effects from medications: No Attending Groups: No Review of Systems Cardiovascular: Reports leg edema (Right LE redness and edema-hospitalist consult ordered) Reports behavioral changes and Reports confusion Psychiatric: Reports abnormal sleep pattern, Reports anxiety, Reports behavioral changes, Reports change in appetite, Reports confusion, Reports depression, Reports difficulty concentrating, Reports auditory hallucinations, Reports anhedonia, Reports paranoia and Reports suicidal ideation (denies) Mental Status Exam Mental Status Exam Patient Appearance: Appropriate Patient Orientation: Person and Place Level of Consciousness: Alert Patient Behavior: Guarded, Talkative, Suspicious, Anxious, Fearful, Resistive to Care, Avoidant, Distractible, Isolative and Good Eye Contact Mood Description: Constricted Affect Description: Constricted Patient Cognition Impaired: Yes Ability to Follow Directions: Fair Speech Pattern: Difficulty Finding Words, Spontaneous Speech, Soft-Spoken and Long Pauses Memory Description: Remote Impaired and Episodic Impaired Hallucinations: Auditory Delusions: Being Controlled, Paranoid Ideation and Present Perceptual Disturbances: Depersonalization and Derealization Thought Process: Distracted, Rumination and Evasive Thought Content: positive for [place], positive for Perseveration, positive for Thought Blocking and positive for Suicidal Ideation (denies) Depressive Symptoms: Increased Anxiety, Diff. Making Decisions, Difficulty Sleeping and Changes in Appetite Judgement: Poor Diagnostics Vital Signs (24Hr): Body Mass Index 38.5 Labs Results: 09/19/20 14:28 09/19/20 14:28 Imaging Radiology Impressions: ITS Impressions KUB X-Ray 07/22/20 17:13 IMPRESSION: Moderate volume of stool scattered in colon. No bowel obstruction. Medications Medications Current Medications Generic Name Dose Route Start Last Admin Trade Name Freq PRN Reason Stop Dose Admin Acetaminophen 650 mg 07/23/20 21:13 08/11/20 12:28 Acetaminophen 325 Mg Tablet PO 650 mg Q6H PRN Administration Headache/Pain Mild Scale (1-3) Al Hydroxide/Mg Hydroxide 30 ml 07/23/20 21:13 Magnesium Hydrox/Alum Hydrox 30 Ml Oral.Susp PO Q6H PRN Heartburn/Nausea Aspirin 81 mg 07/25/20 09:00 09/23/20 08:39 Aspirin Enteric Coated 81 Mg Tablet. PO Not Given DAILY [facility] Atorvastatin Calcium 80 mg 07/23/20 21:00 09/22/20 21:47 Atorvastatin Calcium 80 Mg Tablet PO Not Given BEDTIME [facility] Clopidogrel Bisulfate 75 mg 07/23/20 17:00 09/23/20 08:39 Clopidogrel Bisulfate 75 Mg Tablet PO Not Given DAILY [facility] Ferrous Sulfate 324 mg 09/02/20 09:00 09/23/20 13:53 Ferrous Sulfate 324 Mg Tablet. PO 324 mg DAILY [facility] Administration Finasteride 5 mg 07/23/20 17:00 09/23/20 13:54 Finasteride 5 Mg Tablet PO 5 mg DAILY [facility] Administration Fluphenazine HCl 2 mg 09/23/20 09:00 09/23/20 08:47 Fluphenazine Hcl 1 Mg Tablet PO Not Given DAILY [facility] Hydroxyzine HCl 25 mg 07/23/20 21:13 08/17/20 03:00 Hydroxyzine Hcl 25 Mg Tablet PO 25 mg BEDTIME PRN Administration Anxiety Lisinopril 2.5 mg 08/18/20 09:00 09/23/20 08:39 Lisinopril 2.5 Mg Tablet PO Not Given DAILY [facility] Protocol Loperamide HCl 2 mg 07/24/20 15:43 07/24/20 15:54 Loperamide Hcl 2 Mg Capsule PO 2 mg Q4H PRN Administration Diarrhea Magnesium Hydroxide 30 ml 07/23/20 21:13 Milk Of Magnesia 30 Ml Oral.Susp PO DAILY PRN Constipation Metformin HCl 500 mg 08/14/20 17:00 09/23/20 08:39 Metformin Hcl 500 Mg Tablet PO Not Given BIDWM [facility] Metoprolol Succinate 75 mg 07/23/20 17:00 09/23/20 08:47 Metoprolol Succinate Er 25 Mg Tab.Er.24h PO Not Given DAILY [facility] Protocol Multi-Ingred Cream/Lotion/Oil/Oint 1 appl 07/24/20 21:00 09/23/20 08:47 Mineral Oil/Petrolatum,White 106 Gm Tube TOPICAL Not Given BID [facility] Patient Own 1 each 08/14/20 10:27 08/14/20 12:06 Medication (Thera PO 1 each Breath Dry Mouth Q4H PRN Administration Lozenge) Dry Mouth Patient Own 1 each 08/14/20 10:30 09/23/20 08:48 Medication (Biotene PO Not Given 15 Ml) BID [facility] Nystatin 1 appl 07/26/20 19:25 09/23/20 08:48 Nystatin Cream 15 Gm Tube TOPICAL Not Given DAILY [facility] Protocol Olanzapine 10 mg 08/21/20 21:07 Olanzapine Odt 10 Mg Tab.Rapdis TRANSLINGU BID PRN severe agitation,aggression Olanzapine 5 mg 09/19/20 20:26 09/23/20 08:49 Olanzapine 10 Mg Vial IM 5 mg DAILY PRN Administration If ref prolixin po per court Omeprazole 20 mg 07/24/20 06:30 09/23/20 06:05 Omeprazole 20 Mg Capsule.Dr PO Not Given DAILY@0630 [facility] Ondansetron HCl 4 mg 08/08/20 09:04 08/08/20 09:27 Ondansetron Odt 4 Mg Tab.Rapdis TRANSLINGU 4 mg Q6H PRN Administration Nausea Saliva Substitute 1 spray 08/12/20 15:06 Dry Mouth [place] 30 Ml [place] MUCOUS MEM Q2H PRN Dry Mouth Tamsulosin HCl 0.4 mg 07/25/20 21:00 09/22/20 21:47 Tamsulosin Hcl 0.4 Mg Capsule PO Not Given BEDTIME [facility] Trazodone HCl 50 mg 07/23/20 21:13 08/17/20 03:00 Trazodone Hcl 50 Mg Tablet PO 50 mg BEDTIME PRN Administration Insomnia Vitamin D 50 mcg 07/23/20 21:00 09/22/20 21:47 Cholecalciferol (Vitamin D3) 25 Mcg Tablet PO Not Given BEDTIME [facility] Allergies Allergies Allergy/AdvReac Type Severity Reaction Status Date / Time No Known Allergies Allergy Verified 07/21/20 16:39 Assessment & Plan Assessment & Plan (1) Schizophrenia, paranoid, subchronic with acute exacerbation: Status: Acute Code(s): F20.0 - Paranoid schizophrenia Assessment and Plan: Prolixin 2 mg daily with transition to Deconate. Greater than 50% of the session was spent on counseling and/or coordination of care Reason for contiued inpatient stay Substantial Risk for: harm to self, inability to function, rapid decompensation and med/psych decompensation
--- NOTE | 2020-09-23 17:52 | PM.EVENT ---
Event Note Date of Service: 09/23/20 Event Note: Psych: Patient needed evaluation for question lower extremity cellulitis: Patient was seen and examined: Patient's denies any pain in the lower extremity, denies any fever or chills Has some but swelling both lower legs, but says similar to before. Did not notice any rash or any erythema. Physical exam Cvs: rrr, [id number] , no murmur res: clear to auscultation ,no rhonchii or wheezing abd: no rebound or guarding ,nt, bs present. ext pulses present , no cyanosis , no erythema or rash, mild swelling? chronic neuro: [id number] , nonfocal. Assessment and plan: Less likely lower extremity cellulitis, patient does not have any is erythema or pain or any wound Previous chart review reyna seems to be likely venous insufficiency Plan is elevated lower extremities, use stockings if able Continue to monitor if any new changes please call us for any questions. Discussed with the staff in detail.
[2020-09-24] MEDS: OLANZapine 10 MG VIAL 5 MG IM (09:43)
--- NOTE | 2020-09-24 18:36 | P.PNPSI_ITS ---
Subjective Subjective Date of Service: 09/24/20 Reason For Visit: psychosis Subjective Notes: Conditional Voluntary Healthcare Proxy: Yes Guardianship: No Medical Problems Affecting Mental Status: No Interim History: Reports to team of an increase in anxiety and depression. Seen by hospitalist last evening for evaluation of RBLE Edema. Refused medications today-combative with IM. Plan to give Prolixin Dec 1.25 mg 09/25- will hold Olanzapine. Medication Compliance: Intermittent Side effects from medications: No Attending Groups: No Review of Systems Reports behavioral changes Psychiatric: Reports abnormal sleep pattern, Reports behavioral changes, Reports change in appetite, Reports difficulty concentrating, Reports irritability and Reports paranoia Mental Status Exam Mental Status Exam Patient Appearance: Appropriate Patient Orientation: Person and Place Level of Consciousness: Alert Patient Behavior: Guarded and Suspicious Mood Description: Blunted and Angry Affect Description: Blunted Patient Cognition Impaired: Yes Ability to Follow Directions: Fair Speech Pattern: Spontaneous Speech, Soft-Spoken, Delayed and Long Pauses Memory Description: Remote Impaired and Episodic Impaired Hallucinations: Auditory Delusions: Being Controlled, Paranoid Ideation and Present Thought Process: Illogical and Distracted Thought Content: positive for Thought Blocking Depressive Symptoms: Increased Irritability, Difficulty Sleeping, Changes in Appetite, Unhappiness and Low Self Esteem Judgement: Poor Diagnostics Vital Signs (24Hr): Body Mass Index 38.5 Labs Results: 09/19/20 14:28 09/19/20 14:28 Imaging Radiology Impressions: ITS Impressions KUB X-Ray 07/22/20 17:13 IMPRESSION: Moderate volume of stool scattered in colon. No bowel obstruction. Medications Medications Current Medications Generic Name Dose Route Start Last Admin Trade Name Freq PRN Reason Stop Dose Admin Acetaminophen 650 mg 07/23/20 21:13 08/11/20 12:28 Acetaminophen 325 Mg Tablet PO 650 mg Q6H PRN Administration Headache/Pain Mild Scale (1-3) Al Hydroxide/Mg Hydroxide 30 ml 07/23/20 21:13 Magnesium Hydrox/Alum Hydrox 30 Ml Oral.Susp PO Q6H PRN Heartburn/Nausea Aspirin 81 mg 07/25/20 09:00 09/24/20 09:41 Aspirin Enteric Coated 81 Mg Tablet. PO Not Given DAILY [facility] Atorvastatin Calcium 80 mg 07/23/20 21:00 09/23/20 20:34 Atorvastatin Calcium 80 Mg Tablet PO Not Given BEDTIME [facility] Clopidogrel Bisulfate 75 mg 07/23/20 17:00 09/24/20 09:41 Clopidogrel Bisulfate 75 Mg Tablet PO Not Given DAILY [facility] [place] Ferrous Sulfate 324 mg 09/02/20 09:00 09/24/20 09:41 Ferrous Sulfate 324 Mg Tablet.Dr PO Not Given DAILY [facility] [place] Finasteride 5 mg 07/23/20 17:00 09/24/20 09:41 Finasteride 5 Mg Tablet PO Not Given DAILY [facility] Fluphenazine Decanoate 12.5 mg 09/25/20 09:00 Fluphenazine Decanoate 25 Mg/Ml Vial IM 09/25/20 09:01 ONCE ONE Fluphenazine HCl 2 mg 09/23/20 09:00 09/24/20 09:41 Fluphenazine Hcl 1 Mg Tablet PO Not Given DAILY [facility] Hydroxyzine HCl 25 mg 07/23/20 21:13 08/17/20 03:00 Hydroxyzine Hcl 25 Mg Tablet PO 25 mg BEDTIME PRN Administration Anxiety Lisinopril 2.5 mg 08/18/20 09:00 09/24/20 09:42 Lisinopril 2.5 Mg Tablet PO Not Given DAILY [facility] Protocol Loperamide HCl 2 mg 07/24/20 15:43 07/24/20 15:54 Loperamide Hcl 2 Mg Capsule PO 2 mg Q4H PRN Administration Diarrhea Magnesium Hydroxide 30 ml 07/23/20 21:13 Milk Of Magnesia 30 Ml Oral.Susp PO DAILY PRN Constipation Metformin HCl 500 mg 08/14/20 17:00 09/24/20 16:11 Metformin Hcl 500 Mg Tablet PO Not Given BIDWM [facility] [place] Metoprolol Succinate 75 mg 07/23/20 17:00 09/24/20 09:42 Metoprolol Succinate Er 25 Mg Tab.Er.24h PO Not Given DAILY [facility] Protocol Multi-Ingred Cream/Lotion/Oil/Oint 1 appl 07/24/20 21:00 09/24/20 09:42 Mineral Oil/Petrolatum,White 106 Gm Tube TOPICAL Not Given BID [facility] Patient Own 1 each 08/14/20 10:27 08/14/20 12:06 Medication (Thera PO 1 each Breath Dry Mouth Q4H PRN Administration Lozenge) Dry Mouth Patient Own 1 each 08/14/20 10:30 09/24/20 09:42 Medication (Biotene PO Not Given 15 Ml) BID [facility] Nystatin 1 appl 07/26/20 19:25 09/24/20 09:42 Nystatin Cream 15 Gm Tube TOPICAL Not Given DAILY [facility] [place] Protocol Omeprazole 20 mg 07/24/20 06:30 09/24/20 06:08 Omeprazole 20 Mg Capsule.Dr PO Not Given DAILY@0630 [facility] Ondansetron HCl 4 mg 08/08/20 09:04 08/08/20 09:27 Ondansetron Odt 4 Mg Tab.Rapdis TRANSLINGU 4 mg Q6H PRN Administration Nausea Saliva Substitute 1 spray 08/12/20 15:06 Dry Mouth [place] 30 Ml [place] MUCOUS MEM Q2H PRN Dry Mouth Tamsulosin HCl 0.4 mg 07/25/20 21:00 09/23/20 20:34 Tamsulosin Hcl 0.4 Mg Capsule PO Not Given BEDTIME [facility] Trazodone HCl 50 mg 07/23/20 21:13 08/17/20 03:00 Trazodone Hcl 50 Mg Tablet PO 50 mg BEDTIME PRN Administration Insomnia Vitamin D 50 mcg 07/23/20 21:00 09/23/20 20:34 Cholecalciferol (Vitamin D3) 25 Mcg Tablet PO Not Given BEDTIME [facility] Allergies Allergies Allergy/AdvReac Type Severity Reaction Status Date / Time No Known Allergies Allergy Verified 07/21/20 16:39 Assessment & Plan Assessment & Plan (1) Schizophrenia, paranoid, subchronic with acute exacerbation: Status: Acute Code(s): F20.0 - Paranoid schizophrenia Assessment and Plan: Prolixin 2 mg daily with transition to Deconate. Prolixin Deconate 12.5 mg 09/25/20. Greater than 50% of the session was spent on counseling and/or coordination of care Reason for contiued inpatient stay Substantial Risk for: harm to self, harm to others, inability to function, rapid decompensation and med/psych decompensation
[2020-09-25 07:00] VITALS: BMI 38.0
--- NOTE | 2020-09-25 12:10 | HO.PSYCHPN ---
Subjective Subjective Date of Service: 09/25/20 Reason For Visit: psychosis Subjective Notes: Conditional Voluntary Healthcare Proxy: Yes Guardianship: No Medical Problems Affecting Mental Status: Yes Interim History: Received Prolixin Dec 12.5 mg first dosage today. PO will be discontinued for now, re-evalauted as needed. Pt again is very concerned about SE and not being overmedicated. Some confusion noted prior to injection. Pt able to eat breakfast and lunch. Brother visited. Review with pt and brother all medications. Will place Plavix, Lisinopril and Metoprolol on hold. Pt and brother decided he will accept all others. We will add MVI Will request a return cardiology consult to re-eval the use of Plavix, Lovenox, Lisinopril and Metoprolol as pt has been off for ~60+days, recent EKG is improved and we need some direction given pt's cardiac conditon as to how to proceed. Follow up email sent to brother at his request. Medication Compliance: Yes (compliant with injection, non compliant with other meds) Side effects from medications: No Attending Groups: No Review of Systems Reports behavioral changes Psychiatric: Reports abnormal sleep pattern, Reports anxiety, Reports behavioral changes, Reports change in appetite, Reports auditory hallucinations and Reports paranoia Mental Status Exam Mental Status Exam Patient Appearance: Appropriate Patient Orientation: Person and Place Level of Consciousness: Alert Patient Behavior: Appropriate, Guarded, Talkative, Cooperative and Suspicious Mood Description: Constricted Affect Description: Constricted Patient Cognition Impaired: Yes Ability to Follow Directions: Good Speech Pattern: Spontaneous Speech and Long Pauses Memory Description: Remote Impaired and Episodic Impaired Hallucinations: Auditory Delusions: Being Controlled, Paranoid Ideation and Present Perceptual Disturbances: Derealization Thought Process: Distracted Thought Content: positive for Thought Blocking Depressive Symptoms: Difficulty Sleeping and Changes in Appetite Judgement: Poor Diagnostics Vital Signs (24Hr): Body Mass Index 38.5 Labs Results: 09/19/20 14:28 09/19/20 14:28 Imaging Radiology Impressions: ITS Impressions KUB X-Ray 07/22/20 17:13 IMPRESSION: Moderate volume of stool scattered in colon. No bowel obstruction. Medications Medications Current Medications Generic Name Dose Route Start Last Admin Trade Name Freq PRN Reason Stop Dose Admin Acetaminophen 650 mg 07/23/20 21:13 08/11/20 12:28 Acetaminophen 325 Mg Tablet PO 650 mg Q6H PRN Administration Headache/Pain Mild Scale (1-3) Al Hydroxide/Mg Hydroxide 30 ml 07/23/20 21:13 Magnesium Hydrox/Alum Hydrox 30 Ml Oral.Susp PO Q6H PRN Heartburn/Nausea Aspirin 81 mg 07/25/20 09:00 09/25/20 09:34 Aspirin Enteric Coated 81 Mg Tablet. PO Not Given DAILY [facility] Atorvastatin Calcium 80 mg 07/23/20 21:00 09/24/20 20:36 Atorvastatin Calcium 80 Mg Tablet PO Not Given BEDTIME [facility] Clopidogrel Bisulfate 75 mg 07/23/20 17:00 09/25/20 09:34 Clopidogrel Bisulfate 75 Mg Tablet PO Not Given DAILY [facility] Ferrous Sulfate 324 mg 09/02/20 09:00 09/25/20 09:34 Ferrous Sulfate 324 Mg Tablet. PO Not Given DAILY [facility] Finasteride 5 mg 07/23/20 17:00 09/25/20 09:34 Finasteride 5 Mg Tablet PO Not Given DAILY [facility] Hydroxyzine HCl 25 mg 07/23/20 21:13 08/17/20 03:00 Hydroxyzine Hcl 25 Mg Tablet PO 25 mg BEDTIME PRN Administration Anxiety Lisinopril 2.5 mg 08/18/20 09:00 09/25/20 09:35 Lisinopril 2.5 Mg Tablet PO Not Given DAILY [facility] Protocol Loperamide HCl 2 mg 07/24/20 15:43 07/24/20 15:54 Loperamide Hcl 2 Mg Capsule PO 2 mg Q4H PRN Administration Diarrhea Magnesium Hydroxide 30 ml 07/23/20 21:13 Milk Of Magnesia 30 Ml Oral.Susp PO DAILY PRN Constipation Metformin HCl 500 mg 08/14/20 17:00 09/25/20 09:34 Metformin Hcl 500 Mg Tablet PO Not Given BIDWM COUNT [facility]CLUDES [facility] Metoprolol Succinate 75 mg 07/23/20 17:00 09/25/20 09:35 Metoprolol Succinate Er 25 Mg Tab.Er.24h PO Not Given DAILY [facility] Protocol Multi-Ingred Cream/Lotion/Oil/Oint 1 appl 07/24/20 21:00 09/25/20 09:35 Mineral Oil/Petrolatum,White 106 Gm Tube TOPICAL Not Given BID [facility] Patient Own 1 each 08/14/20 10:27 08/14/20 12:06 Medication (Thera PO 1 each Breath Dry Mouth Q4H PRN Administration Lozenge) Dry Mouth Patient Own 1 each 08/14/20 10:30 09/25/20 09:36 Medication (Biotene PO Not Given 15 Ml) BID [facility] Nystatin 1 appl 07/26/20 19:25 09/25/20 09:35 Nystatin Cream 15 Gm Tube TOPICAL Not Given DAILY [facility] Protocol Omeprazole 20 mg 07/24/20 06:30 09/25/20 09:33 Omeprazole 20 Mg Capsule.Dr PO Not Given DAILY@0630 [facility] Ondansetron HCl 4 mg 08/08/20 09:04 08/08/20 09:27 Ondansetron Odt 4 Mg Tab.Rapdis TRANSLINGU 4 mg Q6H PRN Administration Nausea Saliva Substitute 1 spray 08/12/20 15:06 Dry Mouth [place] 30 Ml [place] MUCOUS MEM Q2H PRN Dry Mouth Tamsulosin HCl 0.4 mg 07/25/20 21:00 09/24/20 20:37 Tamsulosin Hcl 0.4 Mg Capsule PO Not Given BEDTIME [facility] Trazodone HCl 50 mg 07/23/20 21:13 08/17/20 03:00 Trazodone Hcl 50 Mg Tablet PO 50 mg BEDTIME PRN Administration Insomnia Vitamin D 50 mcg 07/23/20 21:00 09/24/20 20:36 Cholecalciferol (Vitamin D3) 25 Mcg Tablet PO Not Given BEDTIME [facility] Allergies Allergies Allergy/AdvReac Type Severity Reaction Status Date / Time No Known Allergies Allergy Verified 07/21/20 16:39 Assessment & Plan Assessment & Plan (1) Schizophrenia, paranoid, subchronic with acute exacerbation: Status: Acute Code(s): F20.0 - Paranoid schizophrenia Assessment and Plan: Prolixin Deconate 12.5 mg given 09/25/20. Hold on current PO meds-hx of SE Greater than 50% of the session was spent on counseling and/or coordination of care Reason for contiued inpatient stay Substantial Risk for: harm to self, harm to others, inability to function, rapid decompensation and med/psych decompensation
[2020-09-26 10:00] VITALS: BP 140/65; PULSE 77
[2020-09-26 10:12] VITALS: BP 140/65; PULSE 77
--- NOTE | 2020-09-26 12:38 | PM.PNCARD ---
Progress Note: A&P Assessment and plan (1) HTN (hypertension): Status: Acute Assessment and Plan: Patient currently having no active cardiac symptoms. Not sure as to his prior cardiac history. He says most of his prior workup was at [facility]. Should get old records. He continues to be on dual antiplatelet therapy for unclear reasons. Obtain old records. His blood pressure is optimized. He has no clinical symptoms or signs of congestive heart failure. No angina. Blood pressure is optimized. Continue metoprolol therapy. There is no need for additional diuretic therapy at this point in time. Will sign of the case. Fall Risk Details Current Medications: Current Medications Generic Name Dose Route Start Last Admin Trade Name Freq PRN Reason Stop Dose Admin Acetaminophen 650 mg 07/23/20 21:13 08/11/20 12:28 Acetaminophen 325 Mg Tablet PO 650 mg Q6H PRN Administration Headache/Pain Mild Scale (1-3) Al Hydroxide/Mg Hydroxide 30 ml 07/23/20 21:13 Magnesium Hydrox/Alum Hydrox 30 Ml Oral.Susp PO Q6H PRN Heartburn/Nausea Aspirin 81 mg 07/25/20 09:00 09/26/20 10:11 Aspirin Enteric Coated 81 Mg Tablet. PO Not Given DAILY [facility] Atorvastatin Calcium 80 mg 07/23/20 21:00 09/25/20 20:27 Atorvastatin Calcium 80 Mg Tablet PO Not Given BEDTIME [facility] Clopidogrel Bisulfate 75 mg 07/23/20 17:00 09/26/20 10:11 Clopidogrel Bisulfate 75 Mg Tablet PO Not Given DAILY [facility] Ferrous Sulfate 324 mg 09/02/20 09:00 09/26/20 10:11 Ferrous Sulfate 324 Mg Tablet. PO Not Given DAILY [facility] Finasteride 5 mg 07/23/20 17:00 09/26/20 10:12 Finasteride 5 Mg Tablet PO Not Given DAILY [facility] Hydroxyzine HCl 25 mg 07/23/20 21:13 08/17/20 03:00 Hydroxyzine Hcl 25 Mg Tablet PO 25 mg BEDTIME PRN Administration Anxiety Lisinopril 2.5 mg 08/18/20 09:00 09/26/20 10:12 Lisinopril 2.5 Mg Tablet PO Not Given DAILY [facility] Protocol Loperamide HCl 2 mg 07/24/20 15:43 07/24/20 15:54 Loperamide Hcl 2 Mg Capsule PO 2 mg Q4H PRN Administration Diarrhea Magnesium Hydroxide 30 ml 07/23/20 21:13 Milk Of Magnesia 30 Ml Oral.Susp PO DAILY PRN Constipation Metformin HCl 500 mg 08/14/20 17:00 09/26/20 10:11 Metformin Hcl 500 Mg Tablet PO Not Given BIDWM [facility] Metoprolol Succinate 75 mg 07/23/20 17:00 09/26/20 10:12 Metoprolol Succinate Er 25 Mg Tab.Er.24h PO Not Given DAILY [facility] Protocol Multi-Ingred Cream/Lotion/Oil/Oint 1 appl 07/24/20 21:00 09/25/20 20:27 Mineral Oil/Petrolatum,White 106 Gm Tube TOPICAL Not Given BID [facility] Multivitamins/Minerals 1 tab 09/25/20 13:30 09/25/20 14:39 Multivitamin With Minerals Tablet PO Not Given DAILY [facility] Patient Own 1 each 08/14/20 10:27 08/14/20 12:06 Medication (Thera PO 1 each Breath Dry Mouth Q4H PRN Administration Lozenge) Dry Mouth Patient Own 1 each 08/14/20 10:30 09/25/20 20:27 Medication (Biotene PO Not Given 15 Ml) BID [facility] Nystatin 1 appl 07/26/20 19:25 09/25/20 09:35 Nystatin Cream 15 Gm Tube TOPICAL Not Given DAILY [facility] Protocol Omeprazole 20 mg 07/24/20 06:30 09/26/20 10:11 Omeprazole 20 Mg Capsule.Dr PO Not Given DAILY@0630 [facility] Ondansetron HCl 4 mg 08/08/20 09:04 08/08/20 09:27 Ondansetron Odt 4 Mg Tab.Rapdis TRANSLINGU 4 mg Q6H PRN Administration Nausea Saliva Substitute 1 spray 08/12/20 15:06 Dry Mouth [place] 30 Ml [place] MUCOUS MEM Q2H PRN Dry Mouth Tamsulosin HCl 0.4 mg 07/25/20 21:00 09/25/20 20:28 Tamsulosin Hcl 0.4 Mg Capsule PO Not Given BEDTIME [facility] Trazodone HCl 50 mg 07/23/20 21:13 08/17/20 03:00 Trazodone Hcl 50 Mg Tablet PO 50 mg BEDTIME PRN Administration Insomnia Vitamin D 50 mcg 07/23/20 21:00 09/25/20 20:27 Cholecalciferol (Vitamin D3) 25 Mcg Tablet PO Not Given BEDTIME [facility] Time Spent With Patient Time: Total time spent is greater than 50% in coordination of care (as documented) at patient's floor/unit and/or counseling patient: Time with patient: 15 - 24 minutes Subjective Subjective Date of Service: 09/26/20 Principal diagnosis: Evaluate cardiac meds Interval history: I was requested to see Juan again today for evaluation of cardiac meds. Reviewed the chart there is no clear new cardiac symptoms reported by the patient has. His diuretics were discontinued due to acute kidney injury suspected to be due to dehydration in over-diuresis. His lisinopril also has been held. Patient is more communicative today. Says that in the past he was told he had a weak heart. Last echocardiogram in the system from 2018 shows normal LV systolic function. Patient does not know much about his prior history and about his medications. His blood pressure is adequate. He denies any chest pain or shortness of breath. Review of Systems Constitutional: Reports no additional constitutional complaints Cardiovascular: Reports no additional cardiovascular complaints Respiratory: Reports no additional respiratory complaints Physical Exam Vital Signs: Last Vital Signs Temp 98.8 F 09/05/20 18:00 Pulse 77 09/26/20 10:12 Resp 16 09/18/20 18:00 BP 140/65 H 09/26/20 10:12 Pulse Ox 96 09/17/20 18:00 Body Mass Index 38.0 Const General: cooperative, comfortable, alert and awake Nutritional Appearance: obese Orientation/consciousness: patient oriented x3 Neck Neck: Yes trachea midline, Yes supple and Yes no JVD Resp Effort & Inspection: normal respiratory effort Auscultation: clear to auscultation bilaterally Cardio Jugular venous distension: no JVD Palpation: normal PMI Rate: regular rate Rhythm: regular rhythm Heart sounds: S1 normal heart sound present, S2 normal heart sound present, no click, no gallops and no murmurs Neuro General: patient oriented x3 and no focal motor deficits Extrem General: No clubbing, No cyanosis and Yes pedal edema Results Labs and Meds Result diagrams: 09/19/20 14:28 09/19/20 14:28 Progress Note: Quality Stroke Does the patient have a stroke diagnosis?: No Procedures Date of Service Date of Service: 09/26/20
[2020-09-26] MEDS: Mineral Oil/Petrolatum,White 106 GM Tube 1 APPL TOPICAL (14:22)
--- NOTE | 2020-09-26 16:41 | P.PNPSI_ITS ---
Subjective Subjective Date of Service: 09/26/20 Reason For Visit: psychosis Subjective Notes: Conditional Voluntary Healthcare Proxy: No Guardianship: No Medical Problems Affecting Mental Status: No Interim History: Refused meds. Cardiology consult much appreciated as pt and family have been working on med compliance with recent [facility]erman refusal of his medical/psychiatric regime. Juan reports he feels well. He was more visable in milieu today-walking, looking out of the window, also more talkative. Denies any adverse effects from Prolixin IM. Next IM 10/09 Medication Compliance: No Side effects from medications: No Attending Groups: No Review of Systems Reports behavioral changes and Reports confusion Psychiatric: Reports abnormal sleep pattern, Reports behavioral changes, Reports change in appetite, Reports confusion, Reports depression, Reports anhedonia and Reports suicidal ideation (denies) Mental Status Exam Mental Status Exam Patient Appearance: Appropriate Patient Orientation: Person, Place, Time and Situation Level of Consciousness: Alert Patient Behavior: Guarded, Talkative and Suspicious Mood Description: Constricted Affect Description: Constricted Patient Cognition Impaired: Yes Ability to Follow Directions: Fair Speech Pattern: Spontaneous Speech Memory Description: Remote Impaired and Episodic Impaired Hallucinations: Auditory Delusions: Being Controlled, Paranoid Ideation and Present Thought Process: Distracted and Rumination Thought Content: positive for [place], positive for Perseveration and positive for Thought Blocking Depressive Symptoms: Diff. Making Decisions, Difficulty Sleeping and Loss of Int. in Activity Abnormal Motor Activity Signs and Symptoms: Restlessness Judgement: Poor Diagnostics Vital Signs (24Hr): Vital Signs - 24 hr 09/26/20 10:00 09/26/20 10:12 Pulse Rate 77 77 Blood Pressure 140/65 H 140/65 H Body Mass Index 38.0 Labs Results: 09/19/20 14:28 09/19/20 14:28 Imaging Radiology Impressions: ITS Impressions KUB X-Ray 07/22/20 17:13 IMPRESSION: Moderate volume of stool scattered in colon. No bowel obstruction. Medications Medications Current Medications Generic Name Dose Route Start Last Admin Trade Name Freq PRN Reason Stop Dose Admin Acetaminophen 650 mg 07/23/20 21:13 08/11/20 12:28 Acetaminophen 325 Mg Tablet PO 650 mg Q6H PRN Administration Headache/Pain Mild Scale (1-3) Al Hydroxide/Mg Hydroxide 30 ml 07/23/20 21:13 Magnesium Hydrox/Alum Hydrox 30 Ml Oral.Susp PO Q6H PRN Heartburn/Nausea Aspirin 81 mg 07/25/20 09:00 09/26/20 10:11 Aspirin Enteric Coated 81 Mg Tablet. PO Not Given DAILY [facility] Atorvastatin Calcium 80 mg 07/23/20 21:00 09/25/20 20:27 Atorvastatin Calcium 80 Mg Tablet PO Not Given BEDTIME [facility] Clopidogrel Bisulfate 75 mg 07/23/20 17:00 09/26/20 10:11 Clopidogrel Bisulfate 75 Mg Tablet PO Not Given DAILY [facility] Ferrous Sulfate 324 mg 09/02/20 09:00 09/26/20 10:11 Ferrous Sulfate 324 Mg Tablet. PO Not Given DAILY [facility] Finasteride 5 mg 07/23/20 17:00 09/26/20 10:12 Finasteride 5 Mg Tablet PO Not Given DAILY [facility] Hydroxyzine HCl 25 mg 07/23/20 21:13 08/17/20 03:00 Hydroxyzine Hcl 25 Mg Tablet PO 25 mg BEDTIME PRN Administration Anxiety Lisinopril 2.5 mg 08/18/20 09:00 09/26/20 10:12 Lisinopril 2.5 Mg Tablet PO Not Given DAILY [facility] Protocol Loperamide HCl 2 mg 07/24/20 15:43 07/24/20 15:54 Loperamide Hcl 2 Mg Capsule PO 2 mg Q4H PRN Administration Diarrhea Magnesium Hydroxide 30 ml 07/23/20 21:13 Milk Of Magnesia 30 Ml Oral.Susp PO DAILY PRN Constipation Metformin HCl 500 mg 08/14/20 17:00 09/26/20 16:06 Metformin Hcl 500 Mg Tablet PO Not Given BIDWM [facility] Metoprolol Succinate 75 mg 07/23/20 17:00 09/26/20 10:12 Metoprolol Succinate Er 25 Mg Tab.Er.24h PO Not Given DAILY [facility] Protocol Multi-Ingred Cream/Lotion/Oil/Oint 1 appl 07/24/20 21:00 09/26/20 14:22 Mineral Oil/Petrolatum,White 106 Gm Tube TOPICAL 1 appl BID [facility] Administration Multivitamins/Minerals 1 tab 09/25/20 13:30 09/26/20 14:22 Multivitamin With Minerals Tablet PO Not Given DAILY [facility] Patient Own 1 each 08/14/20 10:27 08/14/20 12:06 Medication (Thera PO 1 each Breath Dry Mouth Q4H PRN Administration Lozenge) Dry Mouth Patient Own 1 each 08/14/20 10:30 09/26/20 14:22 Medication (Biotene PO Not Given 15 Ml) BID [facility] Nystatin 1 appl 07/26/20 19:25 09/26/20 14:22 Nystatin Cream 15 Gm Tube TOPICAL Not Given DAILY [facility] Protocol Omeprazole 20 mg 07/24/20 06:30 09/26/20 10:11 Omeprazole 20 Mg Capsule.Dr PO Not Given DAILY@0630 [facility] Ondansetron HCl 4 mg 08/08/20 09:04 08/08/20 09:27 Ondansetron Odt 4 Mg Tab.Rapdis TRANSLINGU 4 mg Q6H PRN Administration Nausea Saliva Substitute 1 spray 08/12/20 15:06 Dry Mouth [place] 30 Ml [place] MUCOUS MEM Q2H PRN Dry Mouth Tamsulosin HCl 0.4 mg 07/25/20 21:00 09/25/20 20:28 Tamsulosin Hcl 0.4 Mg Capsule PO Not Given BEDTIME [facility] Trazodone HCl 50 mg 07/23/20 21:13 08/17/20 03:00 Trazodone Hcl 50 Mg Tablet PO 50 mg BEDTIME PRN Administration Insomnia Vitamin D 50 mcg 07/23/20 21:00 09/25/20 20:27 Cholecalciferol (Vitamin D3) 25 Mcg Tablet PO Not Given BEDTIME [facility] Allergies Allergies Allergy/AdvReac Type Severity Reaction Status Date / Time No Known Allergies Allergy Verified 07/21/20 16:39 Assessment & Plan Assessment & Plan (1) HTN (hypertension): Status: Acute Code(s): I10 - Essential (primary) hypertension Assessment and Plan: Patient currently having no active cardiac symptoms. Not sure as to his prior cardiac history. He says most of his prior workup was at [place]. Should get old records. He continues to be on dual antiplatelet therapy for unclear reasons. Obtain old records. His blood pressure is optimized. He has no clinical symptoms or signs of congestive heart failure. No angina. Blood pressure is optimized. Continue metoprolol therapy. There is no need for add itional diuretic therapy at this point in time. Will sign of the case. (2) Schizophrenia, paranoid, subchronic with acute exacerbation: Status: Acute Code(s): F20.0 - Paranoid schizophrenia Assessment and Plan: -Continue current regime Greater than 50% of the session was spent on counseling and/or coordination of care Reason for contiued inpatient stay Substantial Risk for: harm to self, harm to others, inability to function, rapid decompensation and med/psych decompensation
--- NOTE | 2020-09-27 05:59 | HO.PSYCHPN ---
Subjective Subjective Date of Service: 09/29/20 Reason For Visit: psychosis Interim History: Pt more talkative, reports voices telling him that is fine to take medications but still refuses to take them. His affect slightly brighter. He denies SI/HI. He has been mostly in his room but does go for walks in [place]. No behavioral concerns. Review of Systems Review of Systems Gen: no fever Resp: no sob, no cough CV: no chest, no DODD, +leg edema GI: No n/v, no abd pain Neuro: No confusion Yes all other systems are reviewed and are negative and Unobtainable due to mental status Constitutional: Reports no additional constitutional complaints, Reports anorexia, Reports daytime sleepiness, Reports difficulty sleeping, Reports fatigue, Reports lethargy, Reports malaise, Reports poor appetite and Reports other (dehydration) Cardiovascular: Reports no additional cardiovascular complaints, Denies chest pain, Reports pedal edema, Reports leg edema (Right LE redness and edema-hospitalist consult ordered) and Denies lightheadedness Respiratory: Reports no additional respiratory complaints Gastrointestinal: Reports no additional gastrointestinal complaints, Reports abdominal pain, Reports constipation and Reports nausea (Zofran prn ordered) Genitourinary: Reports other (SCOT sx) Reports behavioral changes, Reports confusion and Reports memory loss Psychiatric: Reports abnormal sleep pattern, Reports anxiety, Reports behavioral changes, Reports change in appetite, Reports confusion, Reports depression, Reports difficulty concentrating, Reports auditory hallucinations, Reports hopelessness, Reports irritability, Reports anhedonia, Reports memory loss, Reports mood swings, Reports paranoia, Reports visual hallucinations, Reports hallucinations and Reports suicidal ideation (denies) Endocrine: Reports fatigue Mental Status Exam Mental Status Exam Narrative: Patient Appearance: Appropriate Patient Orientation: Person and Place and maybe situation! Level of Consciousness: Alert Patient Behavior: less Guarded, more present Mood Description: alright Affect Description: Constricted Patient Cognition Impaired: Yes Ability to Follow Directions: Fair Speech Pattern: a bit more spontaneous, less Delayed but still few words. Memory Description: Remote Impaired and Episodic Impaired Hallucinations: Auditory Delusions: reportedly Being Controlled, Paranoid Ideation and Present Perceptual Disturbances: Depersonalization and Derealization Thought Process: concrete Thought Content: no SI or HI Judgment: Poor, but perhaps improving Mood Description: Constricted Affect Description: Constricted Patient Cognition Impaired: Yes Ability to Follow Directions: Fair Speech Pattern: Spontaneous Speech Memory Description: Remote Impaired and Episodic Impaired Diagnostics Vital Signs (24Hr): Body Mass Index 38.0 Labs Results: 09/19/20 14:28 09/19/20 14:28 Imaging Radiology Impressions: ITS Impressions KUB X-Ray 07/22/20 17:13 IMPRESSION: Moderate volume of stool scattered in colon. No bowel obstruction. Medications Medications Current Medications Generic Name Dose Route Start Last Admin Trade Name Freq PRN Reason Stop Dose Admin Acetaminophen 650 mg 07/23/20 21:13 08/11/20 12:28 Acetaminophen 325 Mg Tablet PO 650 mg Q6H PRN Administration Headache/Pain Mild Scale (1-3) Al Hydroxide/Mg Hydroxide 30 ml 07/23/20 21:13 Magnesium Hydrox/Alum Hydrox 30 Ml Oral.Susp PO Q6H PRN Heartburn/Nausea Aspirin 81 mg 07/25/20 09:00 09/28/20 09:13 Aspirin Enteric Coated 81 Mg Tablet. PO Not Given DAILY [facility] Atorvastatin Calcium 80 mg 07/23/20 21:00 09/28/20 21:11 Atorvastatin Calcium 80 Mg Tablet PO Not Given BEDTIME [facility] Clopidogrel Bisulfate 75 mg 07/23/20 17:00 09/28/20 09:13 Clopidogrel Bisulfate 75 Mg Tablet PO Not Given DAILY [facility] Ferrous Sulfate 324 mg 09/02/20 09:00 09/28/20 09:13 Ferrous Sulfate 324 Mg Tablet. PO Not Given DAILY [facility] Finasteride 5 mg 07/23/20 17:00 09/28/20 09:14 Finasteride 5 Mg Tablet PO Not Given DAILY [facility] Hydroxyzine HCl 25 mg 07/23/20 21:13 08/17/20 03:00 Hydroxyzine Hcl 25 Mg Tablet PO 25 mg BEDTIME PRN Administration Anxiety Lisinopril 2.5 mg 08/18/20 09:00 09/28/20 09:14 Lisinopril 2.5 Mg Tablet PO Not Given DAILY [facility] Protocol Loperamide HCl 2 mg 07/24/20 15:43 07/24/20 15:54 Loperamide Hcl 2 Mg Capsule PO 2 mg Q4H PRN Administration Diarrhea Magnesium Hydroxide 30 ml 07/23/20 21:13 Milk Of Magnesia 30 Ml Oral.Susp PO DAILY PRN Constipation Metformin HCl 500 mg 08/14/20 17:00 09/28/20 16:19 Metformin Hcl 500 Mg Tablet PO Not Given BIDWM [facility]CLUD[facility] Metoprolol Succinate 75 mg 07/23/20 17:00 09/28/20 09:14 Metoprolol Succinate Er 25 Mg Tab.Er.24h PO Not Given DAILY [facility] Protocol Multi-Ingred Cream/Lotion/Oil/Oint 1 appl 07/24/20 21:00 09/28/20 21:12 Mineral Oil/Petrolatum,White 106 Gm Tube TOPICAL Not Given BID [facility] Multivitamins/Minerals 1 tab 09/25/20 13:30 09/28/20 09:15 Multivitamin With Minerals Tablet PO Not Given DAILY [facility] Patient Own 1 each 08/14/20 10:27 08/14/20 12:06 Medication (Thera PO 1 each Breath Dry Mouth Q4H PRN Administration Lozenge) Dry Mouth Patient Own 1 each 08/14/20 10:30 09/28/20 21:12 Medication (Biotene PO Not Given 15 Ml) BID [facility] Nystatin 1 appl 07/26/20 19:25 09/28/20 09:15 Nystatin Cream 15 Gm Tube TOPICAL Not Given DAILY [facility] Protocol Omeprazole 20 mg 07/24/20 06:30 09/28/20 07:43 Omeprazole 20 Mg Capsule.Dr PO Not Given DAILY@0630 [facility] Ondansetron HCl 4 mg 08/08/20 09:04 08/08/20 09:27 Ondansetron Odt 4 Mg Tab.Rapdis TRANSLINGU 4 mg Q6H PRN Administration Nausea Saliva Substitute 1 spray 08/12/20 15:06 Dry Mouth [place] 30 Ml [place] MUCOUS MEM Q2H PRN Dry Mouth Tamsulosin HCl 0.4 mg 07/25/20 21:00 09/28/20 21:12 Tamsulosin Hcl 0.4 Mg Capsule PO Not Given BEDTIME [facility] Trazodone HCl 50 mg 07/23/20 21:13 08/17/20 03:00 Trazodone Hcl 50 Mg Tablet PO 50 mg BEDTIME PRN Administration Insomnia Vitamin D 50 mcg 07/23/20 21:00 09/28/20 21:11 Cholecalciferol (Vitamin D3) 25 Mcg Tablet PO Not Given BEDTIME [facility] Allergies Allergies Allergy/AdvReac Type Severity Reaction Status Date / Time No Known Allergies Allergy Verified 07/21/20 16:39 Assessment & Plan Assessment & Plan (1) HTN (hypertension): Status: Acute Code(s): I10 - Essential (primary) hypertension Assessment and Plan: Patient currently having no active cardiac symptoms. Not sure as to his prior cardiac history. He says most of his prior workup was at [facility]. Should get old records. He continues to be on dual antiplatelet therapy for unclear reasons. Obtain old records. His blood pressure is optimized. He has no clinical symptoms or signs of congestive heart failure. No angina. Blood pressure is optimized. Continue metoprolol therapy. There is no need for additional diuretic therapy at this point in time. Will sign of the case. (2) Schizophrenia, paranoid, subchronic with acute exacerbation: Status: Acute Code(s): F20.0 - Paranoid schizophrenia Assessment and Plan: -Continue current regime 1. Pt received Prolixin decanoate 12.5mg IM- on 09/27, no po, consider next IM in two weeks (higher dose)not one month or supplement with oral with back up IM. Greater than 50% of the session was spent on counseling and/or coordination of care Reason for contiued inpatient stay Substantial Risk for: inability to function
--- NOTE | 2020-09-28 06:02 | P.PNPSI_ITS ---
Subjective Subjective Date of Service: 09/29/20 Reason For Visit: psychosis Interim History: Pt more talkative, reports voices telling him that is fine to take medications but still refuses to take them. His affect slightly brighter. He denies SI/HI. He has been mostly in his room but does go for walks in [place]. No behavioral concerns. Review of Systems Review of Systems Gen: no fever Resp: no sob, no cough CV: no chest, no DODD, +leg edema GI: No n/v, no abd pain Neuro: No confusion Yes all other systems are reviewed and are negative and Unobtainable due to mental status Constitutional: Reports no additional constitutional complaints, Reports anorexia, Reports daytime sleepiness, Reports difficulty sleeping, Reports fatigue, Reports lethargy, Reports malaise, Reports poor appetite and Reports other (dehydration) Cardiovascular: Reports no additional cardiovascular complaints, Denies chest pain, Reports pedal edema, Reports leg edema (Right LE redness and edema- hospitalist consult ordered) and Denies lightheadedness Respiratory: Reports no additional respiratory complaints Gastrointestinal: Reports no additional gastrointestinal complaints, Reports abdominal pain, Reports constipation and Reports nausea (Zofran prn ordered) Genitourinary: Reports other (SCOT sx) Reports behavioral changes, Reports confusion and Reports memory loss Psychiatric: Reports abnormal sleep pattern, Reports anxiety, Reports behavioral changes, Reports change in appetite, Reports confusion, Reports depression, Repo rts difficulty concentrating, Reports auditory hallucinations, Reports hopelessness, Reports irritability, Reports anhedonia, Reports memory loss, Reports mood swings, Reports paranoia, Reports visual hallucinations, Reports hallucinations and Reports suicidal ideation (denies) Endocrine: Reports fatigue Mental Status Exam Mental Status Exam Narrative: Patient Appearance: Appropriate Patient Orientation: Person and Place and maybe situation! Level of Consciousness: Alert Patient Behavior: less Guarded, more present Mood Description: alright Affect Description: Constricted Patient Cognition Impaired: Yes Ability to Follow Directions: Fair Speech Pattern: a bit more spontaneous, less Delayed but still few words. Memory Description: Remote Impaired and Episodic Impaired Hallucinations: Auditory Delusions: reportedly Being Controlled, Paranoid Ideation and Present Perceptual Disturbances: Depersonalization and Derealization Thought Process: concrete Thought Content: no SI or HI Judgment: Poor, but perhaps improving Patient Appearance: Appropriate Patient Orientation: Person, Place, Time and Situation Level of Consciousness: Alert Patient Behavior: Guarded, Talkative and Suspicious Behavior Comments: actually makes eye contact here and there- appears fearful Mood Description: Constricted Affect Description: Constricted Patient Cognition Impaired: Yes Ability to Follow Directions: Fair Speech Pattern: Spontaneous Speech Memory Description: Remote Impaired and Episodic Impaired Diagnostics Vital Signs (24Hr): Body Mass Index 38.0 Labs Results: 09/19/20 14:28 09/19/20 14:28 Imaging Radiology Impressions: ITS Impressions KUB X-Ray 07/22/20 17:13 IMPRESSION: Moderate volume of stool scattered in colon. No bowel obstruction. Medications Medications Current Medications Generic Name Dose Route Start Last Admin Trade Name Freq PRN Reason Stop Dose Admin Acetaminophen 650 mg 07/23/20 21:13 08/11/20 12:28 Acetaminophen 325 Mg Tablet PO 650 mg Q6H PRN Administration Headache/Pain Mild Scale (1-3) Al Hydroxide/Mg Hydroxide 30 ml 07/23/20 21:13 Magnesium Hydrox/Alum Hydrox 30 Ml Oral.Susp PO Q6H PRN Heartburn/Nausea Aspirin 81 mg 07/25/20 09:00 09/28/20 09:13 Aspirin Enteric Coated 81 Mg Tablet.Dr PO Not Given DAILY [facility] Atorvastatin Calcium 80 mg 07/23/20 21:00 09/28/20 21:11 Atorvastatin Calcium 80 Mg Tablet PO Not Given BEDTIME [facility] Clopidogrel Bisulfate 75 mg 07/23/20 17:00 09/28/20 09:13 Clopidogrel Bisulfate 75 Mg Tablet PO Not Given DAILY [facility] Ferrous Sulfate 324 mg 09/02/20 09:00 09/28/20 09:13 Ferrous Sulfate 324 Mg Tablet. PO Not Given DAILY [facility] Finasteride 5 mg 07/23/20 17:00 09/28/20 09:14 Finasteride 5 Mg Tablet PO Not Given DAILY [facility] Hydroxyzine HCl 25 mg 07/23/20 21:13 08/17/20 03:00 Hydroxyzine Hcl 25 Mg Tablet PO 25 mg BEDTIME PRN Administration Anxiety Lisinopril 2.5 mg 08/18/20 09:00 09/28/20 09:14 Lisinopril 2.5 Mg Tablet PO Not Given DAILY [facility] Protocol Loperamide HCl 2 mg 07/24/20 15:43 07/24/20 15:54 Loperamide Hcl 2 Mg Capsule PO 2 mg Q4H PRN Administration Diarrhea Magnesium Hydroxide 30 ml 07/23/20 21:13 Milk Of Magnesia 30 Ml Oral.Susp PO DAILY PRN Constipation Metformin HCl 500 mg 08/14/20 17:00 09/28/20 16:19 Metformin Hcl 500 Mg Tablet PO Not Given BIDWM [facility] Metoprolol Succinate 75 mg 07/23/20 17:00 09/28/20 09:14 Metoprolol Succinate Er 25 Mg Tab.Er.24h PO Not Given DAILY [facility] Protocol Multi-Ingred Cream/Lotion/Oil/Oint 1 appl 07/24/20 21:00 09/28/20 21:12 Mineral Oil/Petrolatum,White 106 Gm Tube TOPICAL Not Given BID [facility] Multivitamins/Minerals 1 tab 09/25/20 13:30 09/28/20 09:15 Multivitamin With Minerals Tablet PO Not Given DAILY [facility] Patient Own 1 each 08/14/20 10:27 08/14/20 12:06 Medication (Thera PO 1 each Breath Dry Mouth Q4H PRN Administration Lozenge) Dry Mouth Patient Own 1 each 08/14/20 10:30 09/28/20 21:12 Medication (Biotene PO Not Given 15 Ml) BID [facility] Nystatin 1 appl 07/26/20 19:25 09/28/20 09:15 Nystatin Cream 15 Gm Tube TOPICAL Not Given DAILY [facility] Protocol Omeprazole 20 mg 07/24/20 06:30 09/28/20 07:43 Omeprazole 20 Mg Capsule.Dr PO Not Given DAILY@0630 [facility] Ondansetron HCl 4 mg 08/08/20 09:04 08/08/20 09:27 Ondansetron Odt 4 Mg Tab.Rapdis TRANSLINGU 4 mg Q6H PRN Administration Nausea Saliva Substitute 1 spray 08/12/20 15:06 Dry Mouth [place] 30 Ml [place] MUCOUS MEM Q2H PRN Dry Mouth Tamsulosin HCl 0.4 mg 07/25/20 21:00 09/28/20 21:12 Tamsulosin Hcl 0.4 Mg Capsule PO Not Given BEDTIME [facility] Trazodone HCl 50 mg 07/23/20 21:13 08/17/20 03:00 Trazodone Hcl 50 Mg Tablet PO 50 mg BEDTIME PRN Administration Insomnia Vitamin D 50 mcg 07/23/20 21:00 09/28/20 21:11 Cholecalciferol (Vitamin D3) 25 Mcg Tablet PO Not Given BEDTIME [facility] Allergies Allergies Allergy/AdvReac Type Severity Reaction Status Date / Time No Known Allergies Allergy Verified 07/21/20 16:39 Assessment & Plan Assessment & Plan (1) HTN (hypertension): Status: Acute Code(s): I10 - Essential (primary) hypertension Assessment and Plan: Patient currently having no active cardiac symptoms. Not sure as to his prior cardiac history. He says most of his prior work[facility] was [facility]. Should get old records. He continues to be on dual antiplatelet therapy for unclear reasons. Obtain old records. His blood pressure is optimized. He has no clinical symptoms or signs of congestive heart failure. No angina. Blood pressure is optimized. Continue metoprolol therapy. There is no need for additional diuretic therapy at this point in time. Will sign of the case. (2) Schizophrenia, paranoid, subchronic with acute exacerbation: Status: Acute Code(s): F20.0 - Paranoid schizophrenia Assessment and Plan: -Continue current regime 1. Pt received Prolixin decanoate 12.5mg IM- on 09/27, no po, consider next IM in two weeks (higher dose)not one month or supplement with oral with back up IM. Greater than 50% of the session was spent on counseling and/or coordination of care Reason for contiued inpatient stay Substantial Risk for: inability to function
[2020-09-29 06:00] VITALS: BP 97/47; PULSE 71
--- NOTE | 2020-09-29 06:54 | PC.NURSE ---
refused am POC
--- NOTE | 2020-09-29 16:38 | P.PNPSI_ITS ---
Subjective Subjective Date of Service: 09/29/20 Reason For Visit: psychosis Subjective Notes: Conditional Voluntary Healthcare Proxy: No Guardianship: Yes ([facility]) Medical Problems Affecting Mental Status: No Interim History: Juan reports he is well. Smiles intermittently which appears to be in response to internal stimuli. Continues to decline medications as today voices tell him it is not a good plan he states. Discussed cardiology follow up with pt and brother Mina. Message left with Malina Rodriguez [employer] [phone] to discuss medical history. Medication Compliance: No Side effects from medications: No Attending Groups: No Review of Systems Reports behavioral changes, Reports confusion and Reports memory loss Psychiatric: Reports abnormal sleep pattern, Reports behavioral changes, Reports change in appetite, Reports confusion, Reports auditory hallucinations, Reports anhedonia, Reports memory loss, Reports paranoia and Reports suicidal ideation (denies) Mental Status Exam Mental Status Exam Patient Appearance: Appropriate Patient Orientation: Person Level of Consciousness: Awake and Alert Patient Behavior: Appropriate, Guarded, Talkative, Cooperative, Passive, Suspicious, Anxious, Fearful, Resistive to Care, Avoidant, Fatigued, Distractible, Isolative and Good Eye Contact Mood Description: Blunted Affect Description: Blunted Patient Cognition Impaired: Yes Speech Pattern: Perseverating and Spontaneous Speech Memory Description: Remote Impaired and Episodic Impaired Hallucinations: Auditory Delusions: Paranoid Ideation and Present Thought Process: Illogical, Distracted and Evasive Thought Content: positive for Circumstantial, positive for Thought Blocking, positive for Tangential and positive for Suicidal Ideation (denies) Depressive Symptoms: Diff. Making Decisions, Difficulty Sleeping, Significant Weight Loss, Loss of Int. in Activity, Isolating-Friends/Family, Loss of Energy and Difficulty Concentrating Judgement: Poor Diagnostics Vital Signs (24Hr): Vital Signs - 24 hr 09/29/20 06:00 Pulse Rate 71 Blood Pressure 97/47 L Body Mass Index 38.0 Labs Results: 09/19/20 14:28 09/19/20 14:28 Imaging Radiology Impressions: ITS Impressions KUB X-Ray 07/22/20 17:13 IMPRESSION: Moderate volume of stool scattered in colon. No bowel obstruction. Medications Medications Current Medications Generic Name Dose Route Start Last Admin Trade Name Freq PRN Reason Stop Dose Admin Acetaminophen 650 mg 07/23/20 21:13 08/11/20 12:28 Acetaminophen 325 Mg Tablet PO 650 mg Q6H PRN Administration Headache/Pain Mild Scale (1-3) Al Hydroxide/Mg Hydroxide 30 ml 07/23/20 21:13 Magnesium Hydrox/Alum Hydrox 30 Ml Oral.Susp PO Q6H PRN Heartburn/Nausea Aspirin 81 mg 07/25/20 09:00 09/29/20 11:31 Aspirin Enteric Coated 81 Mg Tablet. PO Not Given DAILY [facility] Atorvastatin Calcium 80 mg 07/23/20 21:00 09/28/20 21:11 Atorvastatin Calcium 80 Mg Tablet PO Not Given BEDTIME [facility] Clopidogrel Bisulfate 75 mg 07/23/20 17:00 09/29/20 11:31 Clopidogrel Bisulfate 75 Mg Tablet PO Not Given DAILY [facility] Ferrous Sulfate 324 mg 09/02/20 09:00 09/29/20 11:31 Ferrous Sulfate 324 Mg Tablet. PO Not Given DAILY [facility] Finasteride 5 mg 07/23/20 17:00 09/29/20 11:32 Finasteride 5 Mg Tablet PO Not Given DAILY [facility] Hydroxyzine HCl 25 mg 07/23/20 21:13 08/17/20 03:00 Hydroxyzine Hcl 25 Mg Tablet PO 25 mg BEDTIME PRN Administration Anxiety Lisinopril 2.5 mg 08/18/20 09:00 09/29/20 11:32 Lisinopril 2.5 Mg Tablet PO Not Given DAILY [facility] Protocol Loperamide HCl 2 mg 07/24/20 15:43 07/24/20 15:54 Loperamide Hcl 2 Mg Capsule PO 2 mg Q4H PRN Administration Diarrhea Magnesium Hydroxide 30 ml 07/23/20 21:13 Milk Of Magnesia 30 Ml Oral.Susp PO DAILY PRN Constipation Metformin HCl 500 mg 08/14/20 17:00 09/29/20 11:31 Metformin Hcl 500 Mg Tablet PO Not Given BIDWM [facility] Metoprolol Succinate 75 mg 07/23/20 17:00 09/29/20 11:32 Metoprolol Succinate Er 25 Mg Tab.Er.24h PO Not Given DAILY [facility] Protocol Multi-Ingred Cream/Lotion/Oil/Oint 1 appl 07/24/20 21:00 09/29/20 11:32 Mineral Oil/Petrolatum,White 106 Gm Tube TOPICAL Not Given BID [facility] Multivitamins/Minerals 1 tab 09/25/20 13:30 09/29/20 11:32 Multivitamin With Minerals Tablet PO Not Given DAILY [facility] Patient Own 1 each 08/14/20 10:27 08/14/20 12:06 Medication (Thera PO 1 each Breath Dry Mouth Q4H PRN Administration Lozenge) Dry Mouth Patient Own 1 each 08/14/20 10:30 09/29/20 11:33 Medication (Biotene PO Not Given 15 Ml) BID [facility] Nystatin 1 appl 07/26/20 19:25 09/29/20 11:32 Nystatin Cream 15 Gm Tube TOPICAL Not Given DAILY [facility] Protocol Omeprazole 20 mg 07/24/20 06:30 09/29/20 06:31 Omeprazole 20 Mg Capsule.Dr PO Not Given DAILY@0630 [facility] Ondansetron HCl 4 mg 08/08/20 09:04 08/08/20 09:27 Ondansetron Odt 4 Mg Tab.Rapdis TRANSLINGU 4 mg Q6H PRN Administration Nausea Saliva Substitute 1 spray 08/12/20 15:06 Dry Mouth [place] 30 Ml [place] MUCOUS MEM Q2H PRN Dry Mouth Tamsulosin HCl 0.4 mg 07/25/20 21:00 09/28/20 21:12 Tamsulosin Hcl 0.4 Mg Capsule PO Not Given BEDTIME [facility] Trazodone HCl 50 mg 07/23/20 21:13 08/17/20 03:00 Trazodone Hcl 50 Mg Tablet PO 50 mg BEDTIME PRN Administration Insomnia Vitamin D 50 mcg 07/23/20 21:00 09/28/20 21:11 Cholecalciferol (Vitamin D3) 25 Mcg Tablet PO Not Given BEDTIME [facility] Allergies Allergies Allergy/AdvReac Type Severity Reaction Status Date / Time No Known Allergies Allergy Verified 07/21/20 16:39 Assessment & Plan Assessment & Plan (1) Schizophrenia, paranoid, subchronic with acute exacerbation: Status: Acute Code(s): F20.0 - Paranoid schizophrenia Assessment and Plan: Prolixin Decanoate 12.5 mg given 09/25/20. Greater than 50% of the session was spent on counseling and/or coordination of care Reason for contiued inpatient stay Substantial Risk for: harm to self, harm to others and rapid decompensation
[2020-09-30 10:56] LABS: Creatinine Clr Calc Pharmacy 169.2; Estimated Glomerular Filt Rate > 60
--- NOTE | 2020-09-30 11:06 | HO.PSYCHPN ---
Subjective Subjective Date of Service: 09/30/20 Reason For Visit: psychosis Subjective Notes: Conditional Voluntary Healthcare Proxy: No Guardianship: No Medical Problems Affecting Mental Status: No Interim History: Pt with presentation of decline today, not getting out of bed, increase in response to internal stimuli, poor appetite, no sleep, increase in depressive sx, crying. Prolixin Dec 12.5 given 09/25, due 10/09. Pt refuses to take PO Prolixin, Prolixin IR not on hospital formulary and scarce to obtain. Discussed with pts' brother/team. Will order Zydis 5 mg bid SL or Zyprexa 5 mg bid IM to attempt to decrease sx. Case review with Malina Rodriguez of [facility] today [phone]. They have known pt since 2014-no overt cardiac hx. Malina reports decompensation occurred after Mar 2020 episode of COVID. Hx of anemia is rn long term care, average HGB 10.7-12. Medication Compliance: No Side effects from medications: No Attending Groups: No Review of Systems Reports behavioral changes Psychiatric: Reports abnormal sleep pattern, Reports behavioral changes, Reports change in appetite, Reports depression, Reports difficulty concentrating, Reports auditory hallucinations, Reports hopelessness, Reports anhedonia and Reports paranoia Mental Status Exam Mental Status Exam Patient Appearance: Fatigued Patient Orientation: Person and Place Level of Consciousness: Drowsy Patient Behavior: Guarded, Suspicious, Fearful, Resistive to Care, Avoidant, Fatigued, Distractible, Isolative and Uncooperative Mood Description: Suspicious and Withdrawn Affect Description: Constricted Patient Cognition Impaired: Yes Ability to Follow Directions: Fair Speech Pattern: Spontaneous Speech and Soft-Spoken Memory Description: Remote Impaired and Episodic Impaired Hallucinations: Auditory Delusions: Present Perceptual Disturbances: Derealization Thought Process: Distracted and Rumination Thought Content: positive for Perseveration, positive for Thought Blocking and positive for Suicidal Ideation (denies) Depressive Symptoms: Insomnia, Diff. Making Decisions, Difficulty Sleeping, Changes in Appetite, Significant Weight Loss, Loss of Int. in Activity, Hopelessness, Isolating-Friends/Family, Unhappiness, Increased Fatigue, Loss of Energy and Difficulty Concentrating Judgement: Poor Diagnostics Vital Signs (24Hr): Body Mass Index 38.0 Labs Results: 09/19/20 14:28 09/30/20 09:50 Labs: Laboratory Results - last 48 hr 09/30/20 09:50 Creatinine 0.77 Estim Creat Clear Calc 169.2 Estimated GFR > 60 Imaging Radiology Impressions: ITS Impressions KUB X-Ray 07/22/20 17:13 IMPRESSION: Moderate volume of stool scattered in colon. No bowel obstruction. Medications Medications Current Medications Generic Name Dose Route Start Last Admin Trade Name Freq PRN Reason Stop Dose Admin Acetaminophen 650 mg 07/23/20 21:13 08/11/20 12:28 Acetaminophen 325 Mg Tablet PO 650 mg Q6H PRN Administration Headache/Pain Mild Scale (1-3) Al Hydroxide/Mg Hydroxide 30 ml 07/23/20 21:13 Magnesium Hydrox/Alum Hydrox 30 Ml Oral.Susp PO Q6H PRN Heartburn/Nausea Aspirin 81 mg 07/25/20 09:00 09/30/20 08:52 Aspirin Enteric Coated 81 Mg Tablet. PO Not Given DAILY [facility] Atorvastatin Calcium 80 mg 07/23/20 21:00 09/29/20 21:52 Atorvastatin Calcium 80 Mg Tablet PO Not Given BEDTIME [facility] Ferrous Sulfate 324 mg 09/02/20 09:00 09/30/20 08:52 Ferrous Sulfate 324 Mg Tablet. PO Not Given DAILY [facility] Finasteride 5 mg 07/23/20 17:00 09/30/20 08:52 Finasteride 5 Mg Tablet PO Not Given DAILY [facility] Hydroxyzine HCl 25 mg 07/23/20 21:13 08/17/20 03:00 Hydroxyzine Hcl 25 Mg Tablet PO 25 mg BEDTIME PRN Administration Anxiety Loperamide HCl 2 mg 07/24/20 15:43 07/24/20 15:54 Loperamide Hcl 2 Mg Capsule PO 2 mg Q4H PRN Administration Diarrhea Magnesium Hydroxide 30 ml 07/23/20 21:13 Milk Of Magnesia 30 Ml Oral.Susp PO DAILY PRN Constipation Metformin HCl 500 mg 08/14/20 17:00 09/30/20 08:46 Metformin Hcl 500 Mg Tablet PO Not Given BIDWM [facility] Multi-Ingred Cream/Lotion/Oil/Oint 1 appl 07/24/20 21:00 09/30/20 08:52 Mineral Oil/Petrolatum,White 106 Gm Tube TOPICAL Not Given BID [facility] Multivitamins/Minerals 1 tab 09/25/20 13:30 09/30/20 08:53 Multivitamin With Minerals Tablet PO Not Given DAILY [facility] Patient Own 1 each 08/14/20 10:27 08/14/20 12:06 Medication (Thera PO 1 each Breath Dry Mouth Q4H PRN Administration Lozenge) Dry Mouth Patient Own 1 each 08/14/20 10:30 09/30/20 08:53 Medication (Biotene PO Not Given 15 Ml) BID [facility] Nystatin 1 appl 07/26/20 19:25 09/30/20 08:53 Nystatin Cream 15 Gm Tube TOPICAL Not Given DAILY [facility] Protocol Omeprazole 20 mg 07/24/20 06:30 09/30/20 08:46 Omeprazole 20 Mg Capsule.Dr PO Not Given DAILY@0630 [facility] Ondansetron HCl 4 mg 08/08/20 09:04 08/08/20 09:27 Ondansetron Odt 4 Mg Tab.Rapdis TRANSLINGU 4 mg Q6H PRN Administration Nausea Saliva Substitute 1 spray 08/12/20 15:06 Dry Mouth [place] 30 Ml [place] MUCOUS MEM Q2H PRN Dry Mouth Tamsulosin HCl 0.4 mg 07/25/20 21:00 09/29/20 21:53 Tamsulosin Hcl 0.4 Mg Capsule PO Not Given BEDTIME [facility] Trazodone HCl 50 mg 07/23/20 21:13 08/17/20 03:00 Trazodone Hcl 50 Mg Tablet PO 50 mg BEDTIME PRN Administration Insomnia Vitamin D 50 mcg 07/23/20 21:00 09/29/20 21:52 Cholecalciferol (Vitamin D3) 25 Mcg Tablet PO Not Given BEDTIME [facility] Allergies Allergies Allergy/AdvReac Type Severity Reaction Status Date / Time No Known Allergies Allergy Verified 07/21/20 16:39 Assessment & Plan Assessment & Plan (1) Schizophrenia, paranoid, subchronic with acute exacerbation: Status: Acute Code(s): F20.0 - Paranoid schizophrenia Assessment and Plan: Prolixin Decanoate 12.5 mg given 09/25/20. Zydis 5 mg bid. If pt refuses Zyprexa 5 mg bid IM. Greater than 50% of the session was spent on counseling and/or coordination of care Reason for contiued inpatient stay Substantial Risk for: harm to self, inability to function and med/psych decompensation
[2020-09-30] MEDS: OLANZapine 10 MG VIAL 5 MG IM (14:51)
[2020-09-30] MEDS: OLANZapine ODT 10 MG TAB.RAPDIS 5 MG TRANSLINGU (20:38)
[2020-09-30] MEDS: Cholecalciferol (Vitamin D3) 25 MCG TABLET 50 MCG PO (20:44)
[2020-10-01 06:00] VITALS: PULSE 84; O2SAT 97
[2020-10-01] MEDS: OLANZapine 10 MG VIAL 5 MG IM (08:35)
--- NOTE | 2020-10-01 15:03 | P.PNPSI_ITS ---
Subjective Subjective Date of Service: 10/01/20 Reason For Visit: psychosis Review of Systems Juan continues to refuse medications, as a result is receiving IM Olanzapine BID. Intake increased today. Voices persist, refusing his vital signs and poc values. Review of Systems Reports behavioral changes Psychiatric: Reports abnormal sleep pattern, Reports behavioral changes, Reports change in appetite, Reports depression, Reports auditory hallucinations, Reports anhedonia, Reports paranoia, Reports hallucinations and Reports suicidal ideation (denies) Mental Status Exam Mental Status Exam Patient Appearance: Fatigued Level of Consciousness: Awake and Alert Patient Behavior: Guarded, Passive, Suspicious, Anxious, Resistive to Care, Avoidant, Fatigued, Distractible and Isolative Mood Description: Suspicious, Withdrawn, Constricted and Flat Affect Description: Suspicious, Withdrawn and Constricted Patient Cognition Impaired: Yes Ability to Follow Directions: Fair Speech Pattern: Perseverating, Impoverished, Spontaneous Speech, Soft-Spoken, Cofabulation, Delayed and Long Pauses Memory Description: Remote Impaired and Episodic Impaired Hallucinations: Auditory Delusions: Being Controlled, Paranoid Ideation and Present Perceptual Disturbances: Derealization Thought Process: Illogical, Distracted and Evasive Thought Content: positive for [place], positive for Perseveration, positive for Poverty of Content, positive for Preoccupation, positive for Thought Blocking, positive for Slowed Thinking and positive for Tangential Depressive Symptoms: Insomnia, Diff. Making Decisions, Difficulty Sleeping, Loss of Int. in Activity, Isolating-Friends/Family and Increased Fatigue Judgement: Poor Diagnostics Vital Signs (24Hr): Vital Signs - 24 hr 10/01/20 06:00 Pulse Rate 84 Pulse Oximetry 97 Body Mass Index 38.0 Labs Results: 09/19/20 14:28 09/30/20 09:50 Labs: Laboratory Results - last 48 hr 09/30/20 09:50 Creatinine 0.77 Estim Creat Clear Calc 169.2 Estimated GFR > 60 Imaging Radiology Impressions: ITS Impressions KUB X-Ray 07/22/20 17:13 IMPRESSION: Moderate volume of stool scattered in colon. No bowel obstruction. Medications Medications Current Medications Generic Name Dose Route Start Last Admin Trade Name Freq PRN Reason Stop Dose Admin Acetaminophen 650 mg 07/23/20 21:13 08/11/20 12:28 Acetaminophen 325 Mg Tablet PO 650 mg Q6H PRN Administration Headache/Pain Mild Scale (1-3) Al Hydroxide/Mg Hydroxide 30 ml 07/23/20 21:13 Magnesium Hydrox/Alum Hydrox 30 Ml Oral.Susp PO Q6H PRN Heartburn/Nausea Aspirin 81 mg 07/25/20 09:00 10/01/20 08:36 Aspirin Enteric Coated 81 Mg Tablet. PO Not Given DAILY [facility] Atorvastatin Calcium 80 mg 07/23/20 21:00 09/30/20 20:34 Atorvastatin Calcium 80 Mg Tablet PO Not Given BEDTIME [facility] Ferrous Sulfate 324 mg 09/02/20 09:00 10/01/20 08:36 Ferrous Sulfate 324 Mg Tablet. PO Not Given DAILY [facility] Finasteride 5 mg 07/23/20 17:00 10/01/20 08:36 Finasteride 5 Mg Tablet PO Not Given DAILY [facility] Hydroxyzine HCl 25 mg 07/23/20 21:13 08/17/20 03:00 Hydroxyzine Hcl 25 Mg Tablet PO 25 mg BEDTIME PRN Administration Anxiety Loperamide HCl 2 mg 07/24/20 15:43 07/24/20 15:54 Loperamide Hcl 2 Mg Capsule PO 2 mg Q4H PRN Administration Diarrhea Magnesium Hydroxide 30 ml 07/23/20 21:13 Milk Of Magnesia 30 Ml Oral.Susp PO DAILY PRN Constipation Metformin HCl 500 mg 08/14/20 17:00 10/01/20 08:36 Metformin Hcl 500 Mg Tablet PO Not Given BIDWM [facility] Multi-Ingred Cream/Lotion/Oil/Oint 1 appl 07/24/20 21:00 10/01/20 08:36 Mineral Oil/Petrolatum,White 106 Gm Tube TOPICAL Not Given BID [facility] Multivitamins/Minerals 1 tab 09/25/20 13:30 10/01/20 08:36 Multivitamin With Minerals Tablet PO Not Given DAILY [facility] Patient Own 1 each 08/14/20 10:27 08/14/20 12:06 Medication (Thera PO 1 each Breath Dry Mouth Q4H PRN Administration Lozenge) Dry Mouth Patient Own 1 each 08/14/20 10:30 10/01/20 08:39 Medication (Biotene PO Not Given 15 Ml) BID [facility] Nystatin 1 appl 07/26/20 19:25 10/01/20 08:36 Nystatin Cream 15 Gm Tube TOPICAL Not Given DAILY [facility] Protocol Olanzapine 10 mg 10/01/20 21:00 Olanzapine Odt 10 Mg Tab.Rapdis TRANSLINGU BID [facility] Olanzapine 10 mg 10/01/20 15:00 Olanzapine 10 Mg Vial IM BID PRN if pt ref po zydis rafy fernandez Omeprazole 20 mg 07/24/20 06:30 10/01/20 08:36 Omeprazole 20 Mg Capsule.Dr PO Not Given DAILY@0630 [facility] Ondansetron HCl 4 mg 08/08/20 09:04 08/08/20 09:27 Ondansetron Odt 4 Mg Tab.Rapdis TRANSLINGU 4 mg Q6H PRN Administration Nausea Saliva Substitute 1 spray 08/12/20 15:06 Dry Mouth [place] 30 Ml [place] MUCOUS MEM Q2H PRN Dry Mouth Tamsulosin HCl 0.4 mg 07/25/20 21:00 09/30/20 20:34 Tamsulosin Hcl 0.4 Mg Capsule PO Not Given BEDTIME [facility] Trazodone HCl 50 mg 07/23/20 21:13 08/17/20 03:00 Trazodone Hcl 50 Mg Tablet PO 50 mg BEDTIME PRN Administration Insomnia Vitamin D 50 mcg 07/23/20 21:00 09/30/20 20:44 Cholecalciferol (Vitamin D3) 25 Mcg Tablet PO 50 mcg BEDTIME [facility] Administration Allergies Allergies Allergy/AdvReac Type Severity Reaction Status Date / Time No Known Allergies Allergy Verified 07/21/20 16:39 Assessment & Plan Assessment & Plan (1) Schizophrenia, paranoid, subchronic with acute exacerbation: Status: Acute Code(s): F20.0 - Paranoid schizophrenia Assessment and Plan: Prolixin Decanoate 12.5 mg given 09/25/20. Increase Zydis 10 mg bid. If pt refuses Zyprexa 10 mg bid IM. Discontinue Prolixin Deconate. Greater than 50% of the session was spent on counseling and/or coordination of care Patient educated on: medication risk/benefits Informed Consent: does not understand Reason for contiued inpatient stay Substantial Risk for: harm to self, inability to function and med/psych decompensation
[2020-10-01] MEDS: OLANZapine 10 MG VIAL IM (20:23)
[2020-10-02] MEDS: OLANZapine 10 MG VIAL IM ×2 (08:25→22:15)
--- NOTE | 2020-10-02 13:22 | HO.PSYCHPN ---
Subjective Subjective Date of Service: 10/02/20 Reason For Visit: psychosis Subjective Notes: Conditional Voluntary Healthcare Proxy: No Guardianship: No Medical Problems Affecting Mental Status: Yes (s/p covid Mar 2020 which may be a contributing factor) Interim History: Juan is tolerating increase in Olanzapine. Team reports he is observed laughing to himself often, has restless moments and did yell in his sleep last night. Medication Compliance: Intermittent Side effects from medications: No Attending Groups: No Review of Systems Acute medical concerns: No Medical Review of Systems: unchanged Review of Systems Reports behavioral changes Psychiatric: Reports abnormal sleep pattern, Reports behavioral changes, Reports change in appetite, Reports depression, Reports difficulty concentrating, Reports irritability, Reports anhedonia and Reports paranoia Mental Status Exam Mental Status Exam Patient Appearance: Fatigued Patient Orientation: Person and Place Level of Consciousness: Awake and Alert Patient Behavior: Guarded and Suspicious Mood Description: Suspicious and Withdrawn Affect Description: Constricted Patient Cognition Impaired: Yes Ability to Follow Directions: Fair Speech Pattern: Perseverating, Impoverished, Spontaneous Speech, Soft-Spoken and Cofabulation Memory Description: Remote Impaired and Episodic Impaired Hallucinations: Auditory Delusions: Being Controlled, Paranoid Ideation and Present Perceptual Disturbances: Depersonalization and Derealization Thought Process: Illogical, Distracted, Rumination and Evasive Thought Content: positive for [place], positive for [place], positive for Perseveration, positive for Poverty of Content, positive for Preoccupation, positive for Thought Blocking, positive for Tangential and positive for Evasive Depressive Symptoms: Diff. Making Decisions, Increased Irritability, Difficulty Sleeping, Changes in Appetite, Loss of Energy and Difficulty Concentrating Judgement: Poor Diagnostics Vital Signs (24Hr): Body Mass Index 38.0 Labs Results: 09/19/20 14:28 09/30/20 09:50 Imaging Radiology Impressions: ITS Impressions KUB X-Ray 07/22/20 17:13 IMPRESSION: Moderate volume of stool scattered in colon. No bowel obstruction. Medications Medications Current Medications Generic Name Dose Route Start Last Admin Trade Name Freq PRN Reason Stop Dose Admin Acetaminophen 650 mg 07/23/20 21:13 08/11/20 12:28 Acetaminophen 325 Mg Tablet PO 650 mg Q6H PRN Administration Headache/Pain Mild Scale (1-3) Al Hydroxide/Mg Hydroxide 30 ml 07/23/20 21:13 Magnesium Hydrox/Alum Hydrox 30 Ml Oral.Susp PO Q6H PRN Heartburn/Nausea Aspirin 81 mg 07/25/20 09:00 10/02/20 08:25 Aspirin Enteric Coated 81 Mg Tablet. PO Not Given DAILY [facility] Atorvastatin Calcium 80 mg 07/23/20 21:00 10/01/20 21:01 Atorvastatin Calcium 80 Mg Tablet PO Not Given BEDTIME [facility] Ferrous Sulfate 324 mg 09/02/20 09:00 10/02/20 08:26 Ferrous Sulfate 324 Mg Tablet. PO Not Given DAILY [facility] Finasteride 5 mg 07/23/20 17:00 10/02/20 08:26 Finasteride 5 Mg Tablet PO Not Given DAILY [facility] Hydroxyzine HCl 25 mg 07/23/20 21:13 08/17/20 03:00 Hydroxyzine Hcl 25 Mg Tablet PO 25 mg BEDTIME PRN Administration Anxiety Loperamide HCl 2 mg 07/24/20 15:43 07/24/20 15:54 Loperamide Hcl 2 Mg Capsule PO 2 mg Q4H PRN Administration Diarrhea Magnesium Hydroxide 30 ml 07/23/20 21:13 Milk Of Magnesia 30 Ml Oral.Susp PO DAILY PRN Constipation Metformin HCl 500 mg 08/14/20 17:00 10/02/20 08:25 Metformin Hcl 500 Mg Tablet PO Not Given BIDWM [facility] Multi-Ingred Cream/Lotion/Oil/Oint 1 appl 07/24/20 21:00 10/02/20 08:26 Mineral Oil/Petrolatum,White 106 Gm Tube TOPICAL Not Given BID [facility] Multivitamins/Minerals 1 tab 09/25/20 13:30 10/02/20 08:26 Multivitamin With Minerals Tablet PO Not Given DAILY [facility] Patient Own 1 each 08/14/20 10:27 08/14/20 12:06 Medication (Thera PO 1 each Breath Dry Mouth Q4H PRN Administration Lozenge) Dry Mouth Patient Own 1 each 08/14/20 10:30 10/02/20 08:27 Medication (Biotene PO Not Given 15 Ml) BID [facility] Nystatin 1 appl 07/26/20 19:25 10/02/20 08:26 Nystatin Cream 15 Gm Tube TOPICAL Not Given DAILY [facility] Protocol Olanzapine 10 mg 10/01/20 21:00 10/02/20 09:28 Olanzapine Odt 10 Mg Tab.Rapdis TRANSLINGU Not Given BID [facility] Olanzapine 10 mg 10/01/20 15:00 10/02/20 08:25 Olanzapine 10 Mg Vial IM 10 mg BID PRN Administration if pt ref po zydis rafy fernandez Omeprazole 20 mg 07/24/20 06:30 10/02/20 08:25 Omeprazole 20 Mg Capsule.Dr PO Not Given DAILY@0630 [facility] Ondansetron HCl 4 mg 08/08/20 09:04 08/08/20 09:27 Ondansetron Odt 4 Mg Tab.Rapdis TRANSLINGU 4 mg Q6H PRN Administration Nausea Saliva Substitute 1 spray 08/12/20 15:06 Dry Mouth [place] 30 Ml [place] MUCOUS MEM Q2H PRN Dry Mouth Tamsulosin HCl 0.4 mg 07/25/20 21:00 10/01/20 21:02 Tamsulosin Hcl 0.4 Mg Capsule PO Not Given BEDTIME [facility] Trazodone HCl 50 mg 07/23/20 21:13 08/17/20 03:00 Trazodone Hcl 50 Mg Tablet PO 50 mg BEDTIME PRN Administration Insomnia Vitamin D 50 mcg 07/23/20 21:00 10/01/20 21:01 Cholecalciferol (Vitamin D3) 25 Mcg Tablet PO Not Given BEDTIME [facility] Allergies Allergies Allergy/AdvReac Type Severity Reaction Status Date / Time No Known Allergies Allergy Verified 07/21/20 16:39 Assessment & Plan Assessment & Plan (1) Schizophrenia, paranoid, subchronic with acute exacerbation: Status: Acute Code(s): F20.0 - Paranoid schizophrenia Assessment and Plan: Prolixin Decanoate 12.5 mg given 09/25/20. Increase Zydis 10 mg bid. If pt refuses Zyprexa 10 mg bid IM. Discontinue Prolixin Deconate. Greater than 50% of the session was spent on counseling and/or coordination of care Reason for contiued inpatient stay Substantial Risk for: harm to self, harm to others, inability to function, rapid decompensation and med/psych decompensation
[2020-10-02 18:00] VITALS: RESP 16
[2020-10-03] MEDS: OLANZapine 10 MG VIAL IM ×2 (08:36→20:19)
[2020-10-03] MEDS: Ferrous Sulfate 324 MG TABLET.DR PO (13:18)
--- NOTE | 2020-10-03 17:16 | P.PNPSI_ITS ---
Subjective Subjective Date of Service: 10/03/20 Reason For Visit: psychosis Subjective Notes: Conditional Voluntary Healthcare Proxy: No Guardianship: Yes (community) Medical Problems Affecting Mental Status: Yes (s/p covid) Interim History: Reports he does not feel overmedicated. Presents as more receptive to discussion and easier to engage. Appears to respond to internal stimuli with laughter, eye glances and brief periods of preoccupation with different areas of his room/environment. Denies pain. Team reports an improvement in appetite, however minimal activity-focused on watching tel evision. Medication Compliance: Intermittent Side effects from medications: Yes (possible EPS) Attending Groups: No Review of Systems Acute medical concerns: No Medical Review of Systems: unchanged Review of Systems Reports behavioral changes Psychiatric: Reports abnormal sleep pattern, Reports behavioral changes, Reports change in appetite and Reports auditory hallucinations Mental Status Exam Mental Status Exam Patient Appearance: Appropriate Patient Orientation: Person and Place Level of Consciousness: Alert Patient Behavior: Guarded, Talkative, Suspicious and Good Eye Contact Mood Description: Cheerful and Blunted Affect Description: Blunted Patient Cognition Impaired: Yes Ability to Follow Directions: Fair Speech Pattern: Perseverating, Spontaneous Speech, Soft-Spoken, Cofabulation and Delayed Memory Description: Remote Impaired and Episodic Impaired Hallucinations: Auditory Delusions: Present Perceptual Disturbances: Depersonalization and Derealization Thought Process: Illogical and Distracted Thought Content: positive for Perseveration and positive for Thought Blocking Depressive Symptoms: Insomnia, Difficulty Sleeping, Changes in Appetite, Significant Weight Loss, Loss of Int. in Activity and Difficulty Concentrating Judgement: Poor Diagnostics Vital Signs (24Hr): Vital Signs - 24 hr 10/02/20 18:00 Respiratory Rate 16 Body Mass Index 38.0 Labs Results: 09/19/20 14:28 09/30/20 09:50 Imaging Radiology Impressions: ITS Impressions KUB X-Ray 07/22/20 17:13 IMPRESSION: Moderate volume of stool scattered in colon. No bowel obstruction. Medications Medications Current Medications Generic Name Dose Route Start Last Admin Trade Name Freq PRN Reason Stop Dose Admin Acetaminophen 650 mg 07/23/20 21:13 08/11/20 12:28 Acetaminophen 325 Mg Tablet PO 650 mg Q6H PRN Administration Headache/Pain Mild Scale (1-3) Al Hydroxide/Mg Hydroxide 30 ml 07/23/20 21:13 Magnesium Hydrox/Alum Hydrox 30 Ml Oral.Susp PO Q6H PRN Heartburn/Nausea Aspirin 81 mg 07/25/20 09:00 10/03/20 08:39 Aspirin Enteric Coated 81 Mg Tablet. PO Not Given DAILY [facility] Atorvastatin Calcium 80 mg 07/23/20 21:00 10/02/20 19:42 Atorvastatin Calcium 80 Mg Tablet PO Not Given BEDTIME [facility] Ferrous Sulfate 324 mg 09/02/20 09:00 10/03/20 13:18 Ferrous Sulfate 324 Mg Tablet. PO 324 mg DAILY [facility] Administration Finasteride 5 mg 07/23/20 17:00 10/03/20 08:40 Finasteride 5 Mg Tablet PO Not Given DAILY [facility] Hydroxyzine HCl 25 mg 07/23/20 21:13 08/17/20 03:00 Hydroxyzine Hcl 25 Mg Tablet PO 25 mg BEDTIME PRN Administration Anxiety Loperamide HCl 2 mg 07/24/20 15:43 07/24/20 15:54 Loperamide Hcl 2 Mg Capsule PO 2 mg Q4H PRN Administration Diarrhea Magnesium Hydroxide 30 ml 07/23/20 21:13 Milk Of Magnesia 30 Ml Oral.Susp PO DAILY PRN Constipation Metformin HCl 500 mg 08/14/20 17:00 10/03/20 16:03 Metformin Hcl 500 Mg Tablet PO Not Given BIDWM [facility] Multi-Ingred Cream/Lotion/Oil/Oint 1 appl 07/24/20 21:00 10/03/20 08:40 Mineral Oil/Petrolatum,White 106 Gm Tube TOPICAL Not Given BID [facility] Multivitamins/Minerals 1 tab 09/25/20 13:30 10/03/20 08:40 Multivitamin With Minerals Tablet PO Not Given DAILY [facility] Patient Own 1 each 08/14/20 10:27 08/14/20 12:06 Medication (Thera PO 1 each Breath Dry Mouth Q4H PRN Administration Lozenge) Dry Mouth Patient Own 1 each 08/14/20 10:30 10/03/20 10:02 Medication (Biotene PO 1 each 15 Ml) BID [facility] Administration Nystatin 1 appl 07/26/20 19:25 10/03/20 08:40 Nystatin Cream 15 Gm Tube TOPICAL Not Given DAILY [facility] Protocol Olanzapine 10 mg 10/01/20 21:00 10/03/20 08:41 Olanzapine Odt 10 Mg Tab.Rapdis TRANSLINGU Not Given BID [facility] Olanzapine 10 mg 10/01/20 15:00 10/03/20 08:36 Olanzapine 10 Mg Vial IM 10 mg BID PRN Administration if pt ref po zydis rafy fernandez Omeprazole 20 mg 07/24/20 06:30 10/03/20 08:39 Omeprazole 20 Mg Capsule.Dr PO Not Given DAILY@0630 [facility] Ondansetron HCl 4 mg 08/08/20 09:04 08/08/20 09:27 Ondansetron Odt 4 Mg Tab.Rapdis TRANSLINGU 4 mg Q6H PRN Administration Nausea Saliva Substitute 1 spray 08/12/20 15:06 Dry Mouth [place] 30 Ml [place] MUCOUS MEM Q2H PRN Dry Mouth Tamsulosin HCl 0.4 mg 07/25/20 21:00 10/02/20 19:43 Tamsulosin Hcl 0.4 Mg Capsule PO Not Given BEDTIME [facility] Trazodone HCl 50 mg 07/23/20 21:13 08/17/20 03:00 Trazodone Hcl 50 Mg Tablet PO 50 mg BEDTIME PRN Administration Insomnia Vitamin D 50 mcg 07/23/20 21:00 10/02/20 19:42 Cholecalciferol (Vitamin D3) 25 Mcg Tablet PO Not Given BEDTIME [facility] Allergies Allergies Allergy/AdvReac Type Severity Reaction Status Date / Time No Known Allergies Allergy Verified 07/21/20 16:39 Assessment & Plan Assessment & Plan (1) Schizophrenia, paranoid, subchronic with acute exacerbation: Status: Acute Code(s): F20.0 - Paranoid schizophrenia Assessment and Plan: Prolixin Decanoate 12.5 mg given 09/25/20. Increase Zydis 10 mg bid. If pt refuses Zyprexa 10 mg bid IM. Discontinue Prolixin Deconate. Greater than 50% of the session was spent on counseling and/or coordination of care Informed Consent: does not understand Reason for contiued inpatient stay Substantial Risk for: harm to self, harm to others, inability to function, rapid decompensation and med/psych decompensation
[2020-10-04] MEDS: OLANZapine 10 MG VIAL IM ×2 (09:21→20:04)
--- NOTE | 2020-10-04 15:28 | HO.PSYCHPN ---
Subjective Subjective Date of Service: 10/04/20 Reason For Visit: psychosis Subjective Notes: Section 8 Interim History: Reports he does not feel overmedicated. Presents as more receptive to discussion and easier to engage. Appears to respond to internal stimuli with laughter, eye glances and brief periods of preoccupation with different areas of his room/environment. Denies pain. Team reports an improvement in appetite, however minimal activity-focused on watching television. He has no immediate concerns Medication Compliance: Yes Side effects from medications: No Attending Groups: No Review of Systems Acute medical concerns: No Medical Review of Systems: unchanged Review of Systems Review of Systems Gen: no fever Resp: no sob, no cough CV: no chest, no DODD, +leg edema GI: No n/v, no abd pain Neuro: No confusion Yes all other systems are reviewed and are negative and Unobtainable due to mental status Constitutional: Reports no additional constitutional complaints, Reports anorexia, Reports daytime sleepiness, Reports difficulty sleeping, Reports fatigue, Reports lethargy, Reports malaise, Reports poor appetite and Reports other (dehydration) Cardiovascular: Reports no additional cardiovascular complaints, Denies chest pain, Reports pedal edema, Reports leg edema (Right LE redness and edema-hospitalist consult ordered) and Denies lightheadedness Respiratory: Reports no additional respiratory complaints Gastrointestinal: Reports no additional gastrointestinal complaints, Reports abdominal pain, Reports constipation and Reports nausea (Zofran prn ordered) Genitourinary: Reports other (SCOT sx) Reports behavioral changes, Reports confusion and Reports memory loss Psychiatric: Reports abnormal sleep pattern, Reports anxiety, Reports behavioral changes, Reports change in appetite, Reports confusion, Reports depression, Reports difficulty concentrating, Reports auditory hallucinations, Reports hopelessness, Reports irritability, Reports anhedonia, Reports memory loss, Reports mood swings, Reports paranoia, Reports visual hallucinations, Reports hallucinations and Reports suicidal ideation (denies) Endocrine: Reports fatigue Mental Status Exam Mental Status Exam Narrative: Patient Appearance: Appropriate Patient Orientation: Person and Place and maybe situation! Level of Consciousness: Alert Patient Behavior: less Guarded, more present Mood Description: alright Affect Description: Constricted Patient Cognition Impaired: Yes Ability to Follow Directions: Fair Speech Pattern: a bit more spontaneous, less Delayed but still few words. Memory Description: Remote Impaired and Episodic Impaired Hallucinations: Auditory Delusions: reportedly Being Controlled, Paranoid Ideation and Present Perceptual Disturbances: Depersonalization and Derealization Thought Process: concrete Thought Content: no SI or HI Judgment: Poor, but perhaps improving Patient Appearance: Appropriate Patient Orientation: Person and Place Level of Consciousness: Alert Patient Behavior: Guarded, Talkative, Suspicious and Good Eye Contact Behavior Comments: actually makes eye contact here and there- appears fearful Mood Description: Cheerful and Blunted Affect Description: Blunted Patient Cognition Impaired: Yes Ability to Follow Directions: Fair Speech Pattern: Perseverating, Spontaneous Speech, Soft-Spoken, Cofabulation and Delayed Memory Description: Remote Impaired and Episodic Impaired Thought Content: negative for Suicidal Ideation or negative for Homicidal Ideation Judgement: Poor Diagnostics Vital Signs (24Hr): Body Mass Index 38.0 Labs Results: 09/19/20 14:28 09/30/20 09:50 Imaging Radiology Impressions: ITS Impressions [facility] X-Ray 07/22/20 17:13 IMPRESSION: Moderate volume of stool scattered in colon. No bowel obstruction. Medications Medications Current Medications Generic Name Dose Route Start Last Admin Trade Name Freq PRN Reason Stop Dose Admin Acetaminophen 650 mg 07/23/20 21:13 08/11/20 12:28 Acetaminophen 325 Mg Tablet PO 650 mg Q6H PRN Administration Headache/Pain Mild Scale (1-3) Al Hydroxide/Mg Hydroxide 30 ml 07/23/20 21:13 Magnesium Hydrox/Alum Hydrox 30 Ml Oral.Susp PO Q6H PRN Heartburn/Nausea Aspirin 81 mg 07/25/20 09:00 10/04/20 09:20 Aspirin Enteric Coated 81 Mg Tablet. PO Not Given DAILY [facility] Atorvastatin Calcium 80 mg 07/23/20 21:00 10/03/20 20:24 Atorvastatin Calcium 80 Mg Tablet PO Not Given BEDTIME [facility] Ferrous Sulfate 324 mg 09/02/20 09:00 10/04/20 09:20 Ferrous Sulfate 324 Mg Tablet. PO Not Given DAILY [facility] Finasteride 5 mg 07/23/20 17:00 10/04/20 09:20 Finasteride 5 Mg Tablet PO Not Given DAILY [facility] Hydroxyzine HCl 25 mg 07/23/20 21:13 08/17/20 03:00 Hydroxyzine Hcl 25 Mg Tablet PO 25 mg BEDTIME PRN Administration Anxiety Loperamide HCl 2 mg 07/24/20 15:43 07/24/20 15:54 Loperamide Hcl 2 Mg Capsule PO 2 mg Q4H PRN Administration Diarrhea Magnesium Hydroxide 30 ml 07/23/20 21:13 Milk Of Magnesia 30 Ml Oral.Susp PO DAILY PRN Constipation Metformin HCl 500 mg 08/14/20 17:00 10/04/20 09:20 Metformin Hcl 500 Mg Tablet PO Not Given BIDWM [facility] Multi-Ingred Cream/Lotion/Oil/Oint 1 appl 07/24/20 21:00 10/04/20 09:20 Mineral Oil/Petrolatum,White 106 Gm Tube TOPICAL Not Given BID [facility] Multivitamins/Minerals 1 tab 09/25/20 13:30 10/04/20 09:20 Multivitamin With Minerals Tablet PO Not Given DAILY [facility] Patient Own 1 each 08/14/20 10:27 08/14/20 12:06 Medication (Thera PO 1 each Breath Dry Mouth Q4H PRN Administration Lozenge) Dry Mouth Patient Own 1 each 08/14/20 10:30 10/04/20 09:21 Medication (Biotene PO Not Given 15 Ml) BID [facility] Nystatin 1 appl 07/26/20 19:25 10/04/20 09:21 Nystatin Cream 15 Gm Tube TOPICAL Not Given DAILY [facility] Protocol Olanzapine 10 mg 10/01/20 21:00 10/04/20 09:21 Olanzapine Odt 10 Mg Tab.Rapdis TRANSLINGU Not Given BID [facility] Olanzapine 10 mg 10/01/20 15:00 10/04/20 09:21 Olanzapine 10 Mg Vial IM 10 mg BID PRN Administration if pt ref po zydis per jim Omeprazole 20 mg 07/24/20 06:30 10/04/20 09:20 Omeprazole 20 Mg Capsule.Dr PO Not Given DAILY@0630 [facility] Ondansetron HCl 4 mg 08/08/20 09:04 08/08/20 09:27 Ondansetron Odt 4 Mg Tab.Rapdis TRANSLINGU 4 mg Q6H PRN Administration Nausea Saliva Substitute 1 spray 08/12/20 15:06 Dry Mouth [place] 30 Ml [place] MUCOUS MEM Q2H PRN Dry Mouth Tamsulosin HCl 0.4 mg 07/25/20 21:00 10/03/20 20:25 Tamsulosin Hcl 0.4 Mg Capsule PO Not Given BEDTIME [facility] Trazodone HCl 50 mg 07/23/20 21:13 08/17/20 03:00 Trazodone Hcl 50 Mg Tablet PO 50 mg BEDTIME PRN Administration Insomnia Vitamin D 50 mcg 07/23/20 21:00 10/03/20 20:24 Cholecalciferol (Vitamin D3) 25 Mcg Tablet PO Not Given BEDTIME [facility] Allergies Allergies Allergy/AdvReac Type Severity Reaction Status Date / Time No Known Allergies Allergy Verified 07/21/20 16:39 Assessment & Plan Assessment & Plan (1) Schizophrenia, paranoid, subchronic with acute exacerbation: Status: Acute Code(s): F20.0 - Paranoid schizophrenia Assessment and Plan: Prolixin Decanoate 12.5 mg given 09/25/20. Increase Zydis 10 mg bid. If pt refuses Zyprexa 10 mg bid IM. Discontinue Prolixin Deconate. No change to the above Greater than 50% of the session was spent on counseling and/or coordination of care Patient educated on: diagnosis and medication risk/benefits Informed Consent: further education needed Reason for contiued inpatient stay Substantial Risk for: inability to function and rapid decompensation
[2020-10-05] MEDS: OLANZapine 10 MG VIAL IM ×2 (08:34→20:50)
--- NOTE | 2020-10-05 16:50 | HO.PSYCHPN ---
Subjective Subjective Date of Service: 10/05/20 Reason For Visit: psychosis Interim History: He has no immediate concerns He is content watching movies Medication Compliance: Yes Side effects from medications: No Attending Groups: No Review of Systems Review of Systems Gen: no fever Resp: no sob, no cough CV: no chest, no DODD, +leg edema GI: No n/v, no abd pain Neuro: No confusion Yes all other systems are reviewed and are negative and Unobtainable due to mental status Constitutional: Reports no additional constitutional complaints, Reports anorexia, Reports daytime sleepiness, Reports difficulty sleeping, Reports fatigue, Reports lethargy, Reports malaise, Reports poor appetite and Reports other (dehydration) Cardiovascular: Reports no additional cardiovascular complaints, Denies chest pain, Reports pedal edema, Reports leg edema (Right LE redness and edema-hospitalist consult ordered) and Denies lightheadedness Respiratory: Reports no additional respiratory complaints Gastrointestinal: Reports no additional gastrointestinal complaints, Reports abdominal pain, Reports constipation and Reports nausea (Zofran prn ordered) Genitourinary: Reports other (SCOT sx) Reports behavioral changes, Reports confusion and Reports memory loss Psychiatric: Reports abnormal sleep pattern, Reports anxiety, Reports behavioral changes, Reports change in appetite, Reports confusion, Reports depression, Reports difficulty concentrating, Reports auditory hallucinations, Reports hopelessness, Reports irritability, Reports anhedonia, Reports memory loss, Reports mood swings, Reports paranoia, Reports visual hallucinations, Reports hallucinations and Reports suicidal ideation (denies) Endocrine: Reports fatigue Mental Status Exam Mental Status Exam Narrative: Patient Appearance: Appropriate Patient Orientation: Person and Place and maybe situation! Level of Consciousness: Alert Patient Behavior: less Guarded, more present Mood Description: alright Affect Description: Constricted Patient Cognition Impaired: Yes Ability to Follow Directions: Fair Speech Pattern: a bit more spontaneous, less Delayed but still few words. Memory Description: Remote Impaired and Episodic Impaired Hallucinations: Auditory Delusions: reportedly Being Controlled, Paranoid Ideation and Present Perceptual Disturbances: Depersonalization and Derealization Thought Process: concrete Thought Content: no SI or HI Judgment: Poor, but perhaps improving Patient Appearance: Appropriate Patient Orientation: Person and Place Level of Consciousness: Alert Patient Behavior: Guarded, Talkative, Suspicious and Good Eye Contact Behavior Comments: actually makes eye contact here and there- appears fearful Mood Description: Cheerful and Blunted Affect Description: Blunted Patient Cognition Impaired: Yes Ability to Follow Directions: Fair Speech Pattern: Perseverating, Spontaneous Speech, Soft-Spoken, Cofabulation and Delayed Memory Description: Remote Impaired and Episodic Impaired Diagnostics Vital Signs (24Hr): Body Mass Index 38.0 Labs Results: 09/19/20 14:28 09/30/20 09:50 Imaging Radiology Impressions: ITS Impressions KUB X-Ray 07/22/20 17:13 IMPRESSION: Moderate volume of stool scattered in colon. No bowel obstruction. Medications Medications Current Medications Generic Name Dose Route Start Last Admin Trade Name Freq PRN Reason Stop Dose Admin Acetaminophen 650 mg 07/23/20 21:13 08/11/20 12:28 Acetaminophen 325 Mg Tablet PO 650 mg Q6H PRN Administration Headache/Pain Mild Scale (1-3) Al Hydroxide/Mg Hydroxide 30 ml 07/23/20 21:13 Magnesium Hydrox/Alum Hydrox 30 Ml Oral.Susp PO Q6H PRN Heartburn/Nausea Aspirin 81 mg 07/25/20 09:00 10/05/20 08:41 Aspirin Enteric Coated 81 Mg Tablet. PO Not Given DAILY [facility] Atorvastatin Calcium 80 mg 07/23/20 21:00 10/04/20 20:02 Atorvastatin Calcium 80 Mg Tablet PO Not Given BEDTIME [facility] Ferrous Sulfate 324 mg 09/02/20 09:00 10/05/20 08:41 Ferrous Sulfate 324 Mg Tablet. PO Not Given DAILY [facility] Finasteride 5 mg 07/23/20 17:00 10/05/20 08:41 Finasteride 5 Mg Tablet PO Not Given DAILY [facility] Hydroxyzine HCl 25 mg 07/23/20 21:13 08/17/20 03:00 Hydroxyzine Hcl 25 Mg Tablet PO 25 mg BEDTIME PRN Administration Anxiety Loperamide HCl 2 mg 07/24/20 15:43 07/24/20 15:54 Loperamide Hcl 2 Mg Capsule PO 2 mg Q4H PRN Administration Diarrhea Magnesium Hydroxide 30 ml 07/23/20 21:13 Milk Of Magnesia 30 Ml Oral.Susp PO DAILY PRN Constipation Metformin HCl 500 mg 08/14/20 17:00 10/05/20 16:13 Metformin Hcl 500 Mg Tablet PO Not Given BIDWM [facility] Multi-Ingred Cream/Lotion/Oil/Oint 1 appl 07/24/20 21:00 10/05/20 08:41 Mineral Oil/Petrolatum,White 106 Gm Tube TOPICAL Not Given BID [facility] Multivitamins/Minerals 1 tab 09/25/20 13:30 10/05/20 08:40 Multivitamin With Minerals Tablet PO Not Given DAILY [facility] Patient Own 1 each 08/14/20 10:27 08/14/20 12:06 Medication (Thera PO 1 each Breath Dry Mouth Q4H PRN Administration Lozenge) Dry Mouth Patient Own 1 each 08/14/20 10:30 10/05/20 08:40 Medication (Biotene PO Not Given 15 Ml) BID [facility] Nystatin 1 appl 07/26/20 19:25 10/05/20 08:40 Nystatin Cream 15 Gm Tube TOPICAL Not Given DAILY [facility] Protocol Olanzapine 10 mg 10/01/20 21:00 10/05/20 08:40 Olanzapine Odt 10 Mg Tab.Rapdis TRANSLINGU Not Given BID [facility] Olanzapine 10 mg 10/01/20 15:00 10/05/20 08:34 Olanzapine 10 Mg Vial IM 10 mg BID PRN Administration if pt ref po [email or web address] fernandez Omeprazole 20 mg 07/24/20 06:30 10/05/20 08:35 Omeprazole 20 Mg Capsule.Dr PO Not Given DAILY@0630 [facility] Ondansetron HCl 4 mg 08/08/20 09:04 08/08/20 09:27 Ondansetron Odt 4 Mg Tab.Rapdis TRANSLINGU 4 mg Q6H PRN Administration Nausea Saliva Substitute 1 spray 08/12/20 15:06 Dry Mouth [place] 30 Ml [place] MUCOUS MEM Q2H PRN Dry Mouth Tamsulosin HCl 0.4 mg 07/25/20 21:00 10/04/20 20:03 Tamsulosin Hcl 0.4 Mg Capsule PO Not Given BEDTIME [facility] Trazodone HCl 50 mg 07/23/20 21:13 08/17/20 03:00 Trazodone Hcl 50 Mg Tablet PO 50 mg BEDTIME PRN Administration Insomnia Vitamin D 50 mcg 07/23/20 21:00 10/04/20 20:02 Cholecalciferol (Vitamin D3) 25 Mcg Tablet PO Not Given BEDTIME [facility] Allergies Allergies Allergy/AdvReac Type Severity Reaction Status Date / Time No Known Allergies Allergy Verified 07/21/20 16:39 Assessment & Plan Assessment & Plan (1) Schizophrenia, paranoid, subchronic with acute exacerbation: Status: Acute Code(s): F20.0 - Paranoid schizophrenia Assessment and Plan: Prolixin Decanoate 12.5 mg given 09/25/20. Increase Zydis 10 mg bid. If pt refuses Zyprexa 10 mg bid IM. Discontinue Prolixin Deconate. No change to the above Greater than 50% of the session was spent on counseling and/or coordination of care Patient educated on: diagnosis and medication risk/benefits Informed Consent: does not understand Reason for contiued inpatient stay Substantial Risk for: rapid decompensation
[2020-10-06] MEDS: OLANZapine 10 MG VIAL IM (08:34)
[2020-10-06] MEDS: Ferrous Sulfate 324 MG TABLET.DR PO (15:10)
--- NOTE | 2020-10-06 19:35 | HO.PSYCHPN ---
Subjective Subjective Date of Service: 10/06/20 Reason For Visit: psychosis Subjective Notes: Conditional Voluntary Healthcare Proxy: No Guardianship: Yes (community) Medical Problems Affecting Mental Status: No Interim History: Team reports agitation at times and sexual disinhibition. Intake improving Sleep appears variable per documentation. Pt has eye contact, is responsive, discussed increasing medications to target sx with LTG being discharge so he may have some enjoyment with his brother. Labs 10/07. Medication Compliance: No (Refuses PO. Requires IM Olanzapine) Side effects from medications: No Attending Groups: No Review of Systems Acute medical concerns: No Medical Review of Systems: unchanged Review of Systems Reports behavioral changes and Reports memory loss Psychiatric: Reports abnormal sleep pattern, Reports behavioral changes, Reports change in appetite, Reports depression, Reports difficulty concentrating, Reports auditory hallucinations, Reports irritability, Reports anhedonia, Reports memory loss, Reports mood swings, Reports visual hallucinations and Reports suicidal ideation (denies) Mental Status Exam Mental Status Exam Patient Appearance: Appropriate Patient Orientation: Person and Place Level of Consciousness: Alert Patient Behavior: Guarded, Talkative, Suspicious, Sedated, Resistive to Care, Avoidant, Fatigued, Distractible and Isolative Mood Description: Suspicious, Withdrawn, Constricted, Labile, Angry, Sad and Apprehensive Affect Description: Constricted Patient Cognition Impaired: Yes Ability to Follow Directions: Good Speech Pattern: Spontaneous Speech, Soft-Spoken and Long Pauses Memory Description: Remote Impaired and Episodic Impaired Hallucinations: Auditory Delusions: Being Controlled, Paranoid Ideation and Present Perceptual Disturbances: Derealization Thought Process: Illogical, Distracted, Rumination and Confusion Thought Content: positive for [place], positive for Circum[place], positive for Preoccupation and positive for Thought Blocking Depressive Symptoms: Difficulty Sleeping, Changes in Appetite, Loss of Energy and Difficulty Concentrating Judgement: Poor Diagnostics Vital Signs (24Hr): Body Mass Index 38.0 Labs Results: 09/19/20 14:28 09/30/20 09:50 Imaging Radiology Impressions: ITS Impressions KUB X-Ray 07/22/20 17:13 IMPRESSION: Moderate volume of stool scattered in colon. No bowel obstruction. Medications Medications Current Medications Generic Name Dose Route Start Last Admin Trade Name Freq PRN Reason Stop Dose Admin Acetaminophen 650 mg 07/23/20 21:13 08/11/20 12:28 Acetaminophen 325 Mg Tablet PO 650 mg Q6H PRN Administration Headache/Pain Mild Scale (1-3) Al Hydroxide/Mg Hydroxide 30 ml 07/23/20 21:13 Magnesium Hydrox/Alum Hydrox 30 Ml Oral.Susp PO Q6H PRN Heartburn/Nausea Aspirin 81 mg 07/25/20 09:00 10/06/20 10:48 Aspirin Enteric Coated 81 Mg Tablet. PO Not Given DAILY [facility] Atorvastatin Calcium 80 mg 07/23/20 21:00 10/05/20 21:14 Atorvastatin Calcium 80 Mg Tablet PO Not Given BEDTIME [facility] Ferrous Sulfate 324 mg 09/02/20 09:00 10/06/20 15:10 Ferrous Sulfate 324 Mg Tablet. PO 324 mg DAILY [facility] Administration Finasteride 5 mg 07/23/20 17:00 10/06/20 10:48 Finasteride 5 Mg Tablet PO Not Given DAILY [facility] Hydroxyzine HCl 25 mg 07/23/20 21:13 08/17/20 03:00 Hydroxyzine Hcl 25 Mg Tablet PO 25 mg BEDTIME PRN Administration Anxiety Loperamide HCl 2 mg 07/24/20 15:43 07/24/20 15:54 Loperamide Hcl 2 Mg Capsule PO 2 mg Q4H PRN Administration Diarrhea Magnesium Hydroxide 30 ml 07/23/20 21:13 Milk Of Magnesia 30 Ml Oral.Susp PO DAILY PRN Constipation Metformin HCl 500 mg 08/14/20 17:00 10/06/20 16:17 Metformin Hcl 500 Mg Tablet PO Not Given BIDWM [facility] Multi-Ingred Cream/Lotion/Oil/Oint 1 appl 07/24/20 21:00 10/06/20 10:48 Mineral Oil/Petrolatum,White 106 Gm Tube TOPICAL Not Given BID [facility] Multivitamins/Minerals 1 tab 09/25/20 13:30 10/06/20 10:48 Multivitamin With Minerals Tablet PO Not Given DAILY [facility] Patient Own 1 each 08/14/20 10:27 08/14/20 12:06 Medication (Thera PO 1 each Breath Dry Mouth Q4H PRN Administration Lozenge) Dry Mouth Patient Own 1 each 08/14/20 10:30 10/06/20 10:49 Medication (Biotene PO Not Given 15 Ml) BID [facility] Nystatin 1 appl 07/26/20 19:25 10/06/20 10:49 Nystatin Cream 15 Gm Tube TOPICAL Not Given DAILY [facility] Protocol Olanzapine 15 mg 10/06/20 12:18 Olanzapine 10 Mg Vial IM BID PRN if pt ref po zydis per fernandez Olanzapine 15 mg 10/06/20 21:00 Olanzapine Odt 10 Mg Tab.Rapdis TRANSLINGU BID [facility] Omeprazole 20 mg 07/24/20 06:30 10/06/20 10:46 Omeprazole 20 Mg Capsule.Dr PO Not Given DAILY@0630 [facility] Ondansetron HCl 4 mg 08/08/20 09:04 08/08/20 09:27 Ondansetron Odt 4 Mg Tab.Rapdis TRANSLINGU 4 mg Q6H PRN Administration Nausea Saliva Substitute 1 spray 08/12/20 15:06 Dry Mouth [place] 30 Ml [place] MUCOUS MEM Q2H PRN Dry Mouth Tamsulosin HCl 0.4 mg 07/25/20 21:00 10/05/20 21:14 Tamsulosin Hcl 0.4 Mg Capsule PO Not Given BEDTIME [facility] Trazodone HCl 50 mg 07/23/20 21:13 08/17/20 03:00 Trazodone Hcl 50 Mg Tablet PO 50 mg BEDTIME PRN Administration Insomnia Vitamin D 50 mcg 07/23/20 21:00 10/05/20 21:14 Cholecalciferol (Vitamin D3) 25 Mcg Tablet PO Not Given BEDTIME [facility] Allergies Allergies Allergy/AdvReac Type Severity Reaction Status Date / Time No Known Allergies Allergy Verified 07/21/20 16:39 Assessment & Plan Assessment & Plan (1) Schizophrenia, paranoid, subchronic with acute exacerbation: Status: Acute Code(s): F20.0 - Paranoid schizophrenia Assessment and Plan: Prolixin Decanoate 12.5 mg given 09/25/20. Increase Zydis 15 mg bid. If pt refuses Zyprexa 15 mg bid IM. Discontinue Prolixin Deconate. Labs 10/07: CBCD, CMP, A1C, Lipids No change to the above Greater than 50% of the session was spent on counseling and/or coordination of care Patient educated on: therapeutic strategies Informed Consent: does not understand Reason for contiued inpatient stay Substantial Risk for: harm to self, harm to others, inability to function, rapid decompensation and med/psych decompensation
[2020-10-06] MEDS: OLANZapine 10 MG VIAL 15 MG IM (19:48)
--- NOTE | 2020-10-06 22:33 | PC.NURSE ---
It has been noted on this shift that patient has had an increase in AH/VH as well as an increase is agitation. (Deo Smallwood MD) mass communications instructor made aware and IM Zyprexa 15mg scheduled dose was given approximately 30 minutes early w/ good effect.
[2020-10-07 10:44] LABS: Glucose, Whole Blood 120 mg/dL (60-115)
[2020-10-07] MEDS: OLANZapine 10 MG VIAL 15 MG IM (20:20)
--- NOTE | 2020-10-07 21:48 | HO.PSYCHPN ---
Subjective Subjective Date of Service: 10/07/20 Reason For Visit: psychosis Subjective Notes: Conditional Voluntary Healthcare Proxy: No Guardianship: Yes ([facility]) Medical Problems Affecting Mental Status: No Interim History: Team reports mild improvement. Accepting of PO medications, interactive, eating-accepted [employer] from his brother. Consultation with Dr. Solitario- will begin to offer Clozaril 25 mg daily in addition to Olanzapine and re-start Lovenox 40 mg daily (Creat 0.77, EstCrCl 169.2 GFR>60). RLE continues with dryness, redness, will consult with hospitalist again regarding recommendations. Medication Compliance: Yes Side effects from medications: No Attending Groups: No Review of Systems Acute medical concerns: No Medical Review of Systems: unchanged Review of Systems Reports behavioral changes Psychiatric: Reports behavioral changes, Reports difficulty concentrating, Reports auditory hallucinations, Reports irritability, Reports mood swings, Reports paranoia and Reports hallucinations Mental Status Exam Mental Status Exam Patient Appearance: Appropriate Patient Orientation: Person, Place and Time Level of Consciousness: Alert Patient Behavior: Guarded, Talkative and Cooperative Mood Description: Calm, Suspicious and Withdrawn Affect Description: Constricted Patient Cognition Impaired: Yes Ability to Follow Directions: Good Speech Pattern: Spontaneous Speech and Long Pauses Memory Description: Remote Impaired and Episodic Impaired Hallucinations: Auditory and Visual Delusions: Paranoid Ideation and Present Thought Process: Distracted Thought Content: positive for Thought Blocking and positive for Suicidal Ideation (denies) Depressive Symptoms: Loss of Energy Judgement: Poor Diagnostics Vital Signs (24Hr): Body Mass Index 38.0 Labs Results: 09/19/20 14:28 09/30/20 09:50 Labs: Laboratory Results - last 48 hr 10/07/20 10:21 POC Glucose 120 H Imaging Radiology Impressions: ITS Impressions KUB X-Ray 07/22/20 17:13 IMPRESSION: Moderate volume of stool scattered in colon. No bowel obstruction. Medications Medications Current Medications Generic Name Dose Route Start Last Admin Trade Name Freq PRN Reason Stop Dose Admin Acetaminophen 650 mg 07/23/20 21:13 08/11/20 12:28 Acetaminophen 325 Mg Tablet PO 650 mg Q6H PRN Administration Headache/Pain Mild Scale (1-3) Al Hydroxide/Mg Hydroxide 30 ml 07/23/20 21:13 Magnesium Hydrox/Alum Hydrox 30 Ml Oral.Susp PO Q6H PRN Heartburn/Nausea Aspirin 81 mg 07/25/20 09:00 10/07/20 14:38 Aspirin Enteric Coated 81 Mg Tablet. PO Not Given DAILY [facility] Atorvastatin Calcium 80 mg 07/23/20 21:00 10/07/20 20:27 Atorvastatin Calcium 80 Mg Tablet PO Not Given BEDTIME [facility] Clozapine 25 mg 10/08/20 09:00 Clozapine 25 Mg Tablet PO DAILY [facility] Enoxaparin Sodium 40 mg 10/07/20 15:00 10/07/20 19:32 Enoxaparin Sodium 40 Mg/0.4 Ml Syringe SUBCUT Not Given Q24H [facility] Ferrous Sulfate 324 mg 09/02/20 09:00 10/07/20 14:40 Ferrous Sulfate 324 Mg Tablet. PO Not Given DAILY [facility] Finasteride 5 mg 07/23/20 17:00 10/07/20 14:41 Finasteride 5 Mg Tablet PO Not Given DAILY [facility] Hydroxyzine HCl 25 mg 07/23/20 21:13 08/17/20 03:00 Hydroxyzine Hcl 25 Mg Tablet PO 25 mg BEDTIME PRN Administration Anxiety Loperamide HCl 2 mg 07/24/20 15:43 07/24/20 15:54 Loperamide Hcl 2 Mg Capsule PO 2 mg Q4H PRN Administration Diarrhea Magnesium Hydroxide 30 ml 07/23/20 21:13 Milk Of Magnesia 30 Ml Oral.Susp PO DAILY PRN Constipation Metformin HCl 500 mg 08/14/20 17:00 10/07/20 19:33 Metformin Hcl 500 Mg Tablet PO Not Given BIDWM [facility] Multi-Ingred Cream/Lotion/Oil/Oint 1 appl 07/24/20 21:00 10/07/20 20:27 Mineral Oil/Petrolatum,White 106 Gm Tube TOPICAL Not Given BID [facility] Multivitamins/Minerals 1 tab 09/25/20 13:30 10/07/20 14:41 Multivitamin With Minerals Tablet PO Not Given DAILY [facility] Patient Own 1 each 08/14/20 10:27 08/14/20 12:06 Medication (Thera PO 1 each Breath Dry Mouth Q4H PRN Administration Lozenge) Dry Mouth Patient Own 1 each 08/14/20 10:30 10/07/20 20:28 Medication (Biotene PO Not Given 15 Ml) BID [facility] Nystatin 1 appl 07/26/20 19:25 10/07/20 10:35 Nystatin Cream 15 Gm Tube TOPICAL Not Given DAILY [facility] Protocol Olanzapine 15 mg 10/06/20 12:18 10/07/20 20:20 Olanzapine 10 Mg Vial IM 15 mg BID PRN Administration if pt ref po zydis per jim Olanzapine 15 mg 10/06/20 21:00 10/07/20 20:27 Olanzapine Odt 10 Mg Tab.Rapdis TRANSLINGU Not Given BID [facility] Omeprazole 20 mg 07/24/20 06:30 10/07/20 06:09 Omeprazole 20 Mg Capsule. PO Not Given DAILY@0630 [facility] Ondansetron HCl 4 mg 08/08/20 09:04 08/08/20 09:27 Ondansetron Odt 4 Mg Tab.Rapdis TRANSLINGU 4 mg Q6H PRN Administration Nausea Saliva Substitute 1 spray 08/12/20 15:06 Dry Mouth [place] 30 Ml [place] MUCOUS MEM Q2H PRN Dry Mouth Tamsulosin HCl 0.4 mg 07/25/20 21:00 10/07/20 20:28 Tamsulosin Hcl 0.4 Mg Capsule PO Not Given BEDTIME [facility] Trazodone HCl 50 mg 07/23/20 21:13 08/17/20 03:00 Trazodone Hcl 50 Mg Tablet PO 50 mg BEDTIME PRN Administration Insomnia Vitamin D 50 mcg 07/23/20 21:00 10/07/20 20:27 Cholecalciferol (Vitamin D3) 25 Mcg Tablet PO Not Given BEDTIME [facility] Allergies Allergies Allergy/AdvReac Type Severity Reaction Status Date / Time No Known Allergies Allergy Verified 07/21/20 16:39 Assessment & Plan Assessment & Plan (1) Schizophrenia, paranoid, subchronic with acute exacerbation: Status: Acute Code(s): F20.0 - Paranoid schizophrenia Assessment and Plan: Prolixin Decanoate 12.5 mg given 09/25/20. Increase Zydis 15 mg bid. If pt refuses Zyprexa 15 mg bid IM. Discontinue Prolixin Deconate. Clozaril 25 mg daily Lovenox 40 mg daily Labs 10/08: CBCD, CMP, A1C, Lipids No change to the above Greater than 50% of the session was spent on counseling and/or coordination of care Reason for contiued inpatient stay Substantial Risk for: harm to self, harm to others, inability to function and med/psych decompensation
[2020-10-08] MEDS: OLANZapine ODT 10 MG TAB.RAPDIS 15 MG TRANSLINGU ×2 (08:16→19:57)
--- NOTE | 2020-10-08 17:39 | HO.PSYCHPN ---
Subjective Subjective Date of Service: 10/08/20 Reason For Visit: psychosis Subjective Notes: Conditional Voluntary Healthcare Proxy: No Guardianship: No Medical Problems Affecting Mental Status: No Interim History: Continues to respond to internal stimuli. Accepting of psychiatric medications,declines other medications, including Lovenox however agrees to increase ambulation. Appetite in improved, team notes some increase in sexual disinhibition. Agrees to trial TEDS again for RLE edema and redness. Visited by brother. Met with brother and Lisa Cabrera [facility] as we received a call from Dr. Brian Abad of [facility] to discuss discharge. Brother will make contact with [facility] to discuss this. Medication Compliance: Yes (psychiatric, not medical) Side effects from medications: No Attending Groups: No Review of Systems Acute medical concerns: No Review of Systems Cardiovascular: Reports other (RLE tenderness, redness) Genitourinary: Reports change in libido Psychiatric: Reports change in libido, Reports difficulty concentrating, Reports auditory hallucinations, Reports irritability, Reports paranoia and Reports visual hallucinations Endocrine: Reports change in libido Mental Status Exam Mental Status Exam Patient Appearance: Appropriate Patient Orientation: Person and Place Level of Consciousness: Alert Patient Behavior: Guarded, Talkative, Suspicious and Good Eye Contact Mood Description: Suspicious and Withdrawn Affect Description: Constricted Patient Cognition Impaired: Yes Ability to Follow Directions: Good Speech Pattern: Spontaneous Speech and Long Pauses Memory Description: Remote Impaired and Episodic Impaired Hallucinations: Auditory and Visual Delusions: Paranoid Ideation and Present Perceptual Disturbances: Depersonalization and Derealization Thought Process: Distracted and Rumination Thought Content: positive for [place] and positive for Circumstantial Depressive Symptoms: Diff. Making Decisions, Difficulty Sleeping, Changes in Appetite and Difficulty Concentrating Judgement: Poor Diagnostics Vital Signs (24Hr): Body Mass Index 38.0 Labs Results: 09/19/20 14:28 09/30/20 09:50 Labs: Laboratory Results - last 48 hr 10/07/20 10:21 POC Glucose 120 H Imaging Radiology Impressions: ITS Impressions KUB X-Ray 07/22/20 17:13 IMPRESSION: Moderate volume of stool scattered in colon. No bowel obstruction. Medications Medications Current Medications Generic Name Dose Route Start Last Admin Trade Name Freq PRN Reason Stop Dose Admin Acetaminophen 650 mg 07/23/20 21:13 08/11/20 12:28 Acetaminophen 325 Mg Tablet PO 650 mg Q6H PRN Administration Headache/Pain Mild Scale (1-3) Al Hydroxide/Mg Hydroxide 30 ml 07/23/20 21:13 Magnesium Hydrox/Alum Hydrox 30 Ml Oral.Susp PO Q6H PRN Heartburn/Nausea Aspirin 81 mg 07/25/20 09:00 10/08/20 08:26 Aspirin Enteric Coated 81 Mg Tablet. PO Not Given DAILY [facility] Atorvastatin Calcium 80 mg 07/23/20 21:00 10/07/20 20:27 Atorvastatin Calcium 80 Mg Tablet PO Not Given BEDTIME [facility] Benztropine Mesylate 1 mg 10/08/20 21:00 Benztropine Mesylate 1 Mg Tablet PO BID [facility] Clozapine 25 mg 10/08/20 09:00 10/08/20 08:26 Clozapine 25 Mg Tablet PO Not Given DAILY [facility] Enoxaparin Sodium 40 mg 10/07/20 15:00 10/08/20 15:00 Enoxaparin Sodium 40 Mg/0.4 Ml Syringe SUBCUT Not Given Q24H [facility] Ferrous Sulfate 324 mg 09/02/20 09:00 10/08/20 08:26 Ferrous Sulfate 324 Mg Tablet. PO Not Given DAILY [facility] Finasteride 5 mg 07/23/20 17:00 10/08/20 08:26 Finasteride 5 Mg Tablet PO Not Given DAILY [facility] Hydroxyzine HCl 25 mg 07/23/20 21:13 08/17/20 03:00 Hydroxyzine Hcl 25 Mg Tablet PO 25 mg BEDTIME PRN Administration Anxiety Loperamide HCl 2 mg 07/24/20 15:43 07/24/20 15:54 Loperamide Hcl 2 Mg Capsule PO 2 mg Q4H PRN Administration Diarrhea Magnesium Hydroxide 30 ml 07/23/20 21:13 Milk Of Magnesia 30 Ml Oral.Susp PO DAILY PRN Constipation Metformin HCl 500 mg 08/14/20 17:00 10/08/20 08:26 Metformin Hcl 500 Mg Tablet PO Not Given BIDWM [facility] Multi-Ingred Cream/Lotion/Oil/Oint 1 appl 07/24/20 21:00 10/08/20 08:26 Mineral Oil/Petrolatum,White 106 Gm Tube TOPICAL Not Given BID [facility] Multivitamins/Minerals 1 tab 09/25/20 13:30 10/08/20 08:27 Multivitamin With Minerals Tablet PO Not Given DAILY [facility] Patient Own 1 each 08/14/20 10:27 08/14/20 12:06 Medication (Thera PO 1 each Breath Dry Mouth Q4H PRN Administration Lozenge) Dry Mouth Patient Own 1 each 08/14/20 10:30 10/08/20 08:28 Medication (Biotene PO Not Given 15 Ml) BID [facility] Nystatin 1 appl 07/26/20 19:25 10/08/20 08:27 Nystatin Cream 15 Gm Tube TOPICAL Not Given DAILY [facility] Protocol Olanzapine 15 mg 10/06/20 12:18 10/07/20 20:20 Olanzapine 10 Mg Vial IM 15 mg BID PRN Administration if pt ref po zydis per jim Olanzapine 15 mg 10/06/20 21:00 10/08/20 08:16 Olanzapine Odt 10 Mg Tab.Rapdis TRANSLINGU 15 mg BID [facility] Administration Omeprazole 20 mg 07/24/20 06:30 10/08/20 08:26 Omeprazole 20 Mg Capsule.Dr PO Not Given DAILY@0630 [facility] Ondansetron HCl 4 mg 08/08/20 09:04 08/08/20 09:27 Ondansetron Odt 4 Mg Tab.Rapdis TRANSLINGU 4 mg Q6H PRN Administration Nausea Saliva Substitute 1 spray 08/12/20 15:06 Dry Mouth [place] 30 Ml [place] MUCOUS MEM Q2H PRN Dry Mouth Tamsulosin HCl 0.4 mg 07/25/20 21:00 10/07/20 20:28 Tamsulosin Hcl 0.4 Mg Capsule PO Not Given BEDTIME [facility] Trazodone HCl 50 mg 07/23/20 21:13 08/17/20 03:00 Trazodone Hcl 50 Mg Tablet PO 50 mg BEDTIME PRN Administration Insomnia Vitamin D 50 mcg 07/23/20 21:00 10/07/20 20:27 Cholecalciferol (Vitamin D3) 25 Mcg Tablet PO Not Given BEDTIME [facility] Allergies Allergies Allergy/AdvReac Type Severity Reaction Status Date / Time No Known Allergies Allergy Verified 07/21/20 16:39 Assessment & Plan Assessment & Plan (1) Schizophrenia, paranoid, subchronic with acute exacerbation: Status: Acute Code(s): F20.0 - Paranoid schizophrenia Assessment and Plan: Prolixin Decanoate 12.5 mg given 09/25/20. Increase Zydis 15 mg bid. If pt refuses Zyprexa 15 mg bid IM. Discontinue Prolixin Deconate. Clozaril 25 mg daily Lovenox 40 mg daily Labs 10/09: CBCD, CMP, A1C, Lipids No change to the above Greater than 50% of the session was spent on counseling and/or coordination of care Reason for contiued inpatient stay Substantial Risk for: harm to self, harm to others, inability to function and med/psych decompensation
[2020-10-09 07:00] VITALS: BMI 37.3
[2020-10-09 08:07] LABS: MANUAL DIFF FLAG NO
[2020-10-09 08:19] LABS: Basophils Percent Auto 0.3 % (0-2); Eosinophils Absolute Auto 0.2 X10*3/uL (0.0-0.4); Eosinophils Percent Auto 2.3 % (0-4); Hematocrit 34.7 % (42-52); Hemoglobin 10.8 g/dl (14.0-18.0); Imm Gran Abs Auto 0.07 X10*3/uL (0.00-0.03); Imm Gran Pct Auto 0.7 % (0.0-0.4); Lymphocytes Absolute Auto 2.7 X10*3/uL (1.2-4.9); Lymphocytes Percent Auto 26.3 % (20-40); Mean Corpuscular HGB Conc 31.1 g/dl (31.0-36.0); Mean Corpuscular Hemoglobin 26.4 pg (27.0-33.0); Mean Corpuscular Volume 84.8 fL (80-98); Mean Platelet Volume 9.9 fL (9.4-12.4); Monocytes Absolute Auto 0.9 X10*3/uL (0.1-1.2); Monocytes Percent Auto 8.6 % (2-11); Neutrophils Absolute Auto 6.4 X10*3/uL (2.0-8.3); Neutrophils Percent Auto 61.8 % (45-73); Platelet Count 328 X10*3/uL (160-400); Red Blood Count 4.09 X10*6/uL (4.60-5.80); Red Cell Distribution Width 16.6 % (11.0-16.0); White Blood Count 10.3 X10*3/uL (4.8-10.8)
[2020-10-09] MEDS: OLANZapine ODT 10 MG TAB.RAPDIS 15 MG TRANSLINGU ×2 (08:58→20:26)
[2020-10-09] MEDS: Ferrous Sulfate 324 MG TABLET.DR PO (09:06)
[2020-10-09 12:10] LABS: Glucose, Whole Blood 108 mg/dL (60-115)
--- NOTE | 2020-10-09 13:34 | P.PNPSI_ITS ---
Subjective Subjective Date of Service: 10/09/20 Reason For Visit: psychosis Subjective Notes: Conditional Voluntary Healthcare Proxy: No Guardianship: No Medical Problems Affecting Mental Status: No Interim History: Alert, interactive. Team reports with sexually disinhibited behaviors today but responsive to redirection and limit setting. Accepting medications. Medication Compliance: Yes Side effects from medications: No Attending Groups: No Review of Systems Acute medical concerns: No Medical Review of Systems: unchanged Review of Systems Genitourinary: Reports change in libido Reports behavioral changes and Reports confusion Psychiatric: Reports behavioral changes, Reports change in libido, Reports confusion, Reports difficulty concentrating, Reports auditory hallucinations, Reports mood swings and Reports visual hallucinations Endocrine: Reports change in libido Mental Status Exam Mental Status Exam Patient Appearance: Appropriate Patient Orientation: Person and Place Level of Consciousness: Alert Patient Behavior: Guarded, Suspicious and Impulsive Mood Description: Suspicious and Withdrawn Affect Description: Constricted Patient Cognition Impaired: Yes Ability to Follow Directions: Good Speech Pattern: Spontaneous Speech Memory Description: Remote Impaired and Episodic Impaired Hallucinations: Auditory and Visual Delusions: Present Thought Process: Distracted Thought Content: positive for Loose Associations, positive for Thought Blocking and positive for Tangential Depressive Symptoms: Difficulty Sleeping, Changes in Appetite and Difficulty Concentrating Judgement: Poor Diagnostics Vital Signs (24Hr): Body Mass Index 38.0 Labs Results: 10/09/20 08:00 09/30/20 09:50 Labs: Laboratory Results - last 48 hr 10/09/20 10/09/20 08:00 12:03 WBC 10.3 RBC 4.09 L Hgb 10.8 L Hct 34.7 L MCV 84.8 MCH 26.4 L MCHC 31.1 RDW 16.6 H Plt Count 328 MPV 9.9 Immature Gran % (Auto) 0.7 H Neut % (Auto) 61.8 Lymph % (Auto) 26.3 [place] % (Auto) 8.6 Eos % (Auto) 2.3 Baso % (Auto) 0.3 Lymph # (Auto) 2.7 [place] # (Auto) 0.9 Eos # (Auto) 0.2 Baso # (Auto) 0.0 Abs Immat Gran (auto) 0.07 H Absolute Neuts (auto) 6.4 Absolute Nucleated RBC 0.000 Nucleated RBC % (auto) 0.0 POC Glucose 108 Imaging Radiology Impressions: ITS Impressions KUB X-Ray 07/22/20 17:13 IMPRESSION: Moderate volume of stool scattered in colon. No bowel obstruction. Medications Medications Current Medications Generic Name Dose Route Start Last Admin Trade Name [place]q PRN Reason Stop Dose Admin Acetaminophen 650 mg 07/23/20 21:13 08/11/20 12:28 Acetaminophen 325 Mg Tablet PO 650 mg Q6H PRN Administration Headache/Pain Mild Scale (1-3) Al Hydroxide/Mg Hydroxide 30 ml 07/23/20 21:13 Magnesium Hydrox/Alum Hydrox 30 Ml Oral.Susp PO Q6H PRN Heartburn/Nausea Aspirin 81 mg 07/25/20 09:00 10/09/20 09:09 Aspirin Enteric Coated 81 Mg Tablet. PO Not Given DAILY [facility] Atorvastatin Calcium 80 mg 07/23/20 21:00 10/08/20 20:14 Atorvastatin Calcium 80 Mg Tablet PO Not Given BEDTIME [facility] Benztropine Mesylate 1 mg 10/08/20 21:00 10/09/20 09:09 Benztropine Mesylate 1 Mg Tablet PO Not Given BID [facility] Clozapine 25 mg 10/08/20 09:00 10/09/20 09:09 Clozapine 25 Mg Tablet PO Not Given DAILY [facility] Enoxaparin Sodium 40 mg 10/07/20 15:00 10/08/20 15:00 Enoxaparin Sodium 40 Mg/0.4 Ml Syringe SUBCUT Not Given Q24H [facility] Ferrous Sulfate 324 mg 09/02/20 09:00 10/09/20 09:06 Ferrous Sulfate 324 Mg Tablet. PO 324 mg DAILY [facility] Administration Finasteride 5 mg 07/23/20 17:00 10/09/20 09:09 Finasteride 5 Mg Tablet PO Not Given DAILY [facility] Hydroxyzine HCl 25 mg 07/23/20 21:13 08/17/20 03:00 Hydroxyzine Hcl 25 Mg Tablet PO 25 mg BEDTIME PRN Administration Anxiety Loperamide HCl 2 mg 07/24/20 15:43 07/24/20 15:54 Loperamide Hcl 2 Mg Capsule PO 2 mg Q4H PRN Administration Diarrhea Magnesium Hydroxide 30 ml 07/23/20 21:13 Milk Of Magnesia 30 Ml Oral.Susp PO DAILY PRN Constipation Metformin HCl 500 mg 08/14/20 17:00 10/09/20 09:08 Metformin Hcl 500 Mg Tablet PO Not Given BIDWM [facility] Multi-Ingred Cream/Lotion/Oil/Oint 1 appl 05/20/21 21:00 10/09/20 09:09 Mineral Oil/Petrolatum,White 106 Gm Tube TOPICAL Not Given BID [facility] Multivitamins/Minerals 1 tab 09/25/20 13:30 10/09/20 09:10 Multivitamin With Minerals Tablet PO Not Given DAILY [facility] Patient Own 1 each 08/14/20 10:27 08/14/20 12:06 Medication (Thera PO 1 each Breath Dry Mouth Q4H PRN Administration Lozenge) Dry Mouth Patient Own 1 each 08/14/20 10:30 10/09/20 09:10 Medication (Biotene PO Not Given 15 Ml) BID [facility] Nystatin 1 appl 07/26/20 19:25 10/09/20 09:10 Nystatin Cream 15 Gm Tube TOPICAL Not Given DAILY [facility] Protocol Olanzapine 15 mg 10/06/20 12:18 10/07/20 20:20 Olanzapine 10 Mg Vial IM 15 mg BID PRN Administration if pt ref po zydis per jim Olanzapine 15 mg 10/06/20 21:00 10/09/20 08:58 Olanzapine Odt 10 Mg Tab.Rapdis TRANSLINGU 15 mg BID [facility] Administration Omeprazole 20 mg 07/24/20 06:30 10/09/20 09:08 Omeprazole 20 Mg Capsule.Dr PO Not Given DAILY@0630 [facility] Ondansetron HCl 4 mg 08/08/20 09:04 08/08/20 09:27 Ondansetron Odt 4 Mg Tab.Rapdis TRANSLINGU 4 mg Q6H PRN Administration Nausea Saliva Substitute 1 spray 08/12/20 15:06 Dry Mouth [place] 30 Ml [place] MUCOUS MEM Q2H PRN Dry Mouth Tamsulosin HCl 0.4 mg 07/25/20 21:00 10/08/20 20:14 Tamsulosin Hcl 0.4 Mg Capsule PO Not Given BEDTIME [facility] Trazodone HCl 50 mg 07/23/20 21:13 08/17/20 03:00 Trazodone Hcl 50 Mg Tablet PO 50 mg BEDTIME PRN Administration Insomnia Vitamin D 50 mcg 07/23/20 21:00 10/08/20 20:14 Cholecalciferol (Vitamin D3) 25 Mcg Tablet PO Not Given BEDTIME [facility] Allergies Allergies Allergy/AdvReac Type Severity Reaction Status Date / Time No Known Allergies Allergy Verified 07/21/20 16:39 Assessment & Plan Assessment & Plan (1) Schizophrenia, paranoid, subchronic with acute exacerbation: Status: Acute Code(s): F20.0 - Paranoid schizophrenia Assessment and Plan: Prolixin Decanoate 12.5 mg given 09/25/20. Increase Zydis 15 mg bid. If pt refuses Zyprexa 15 mg bid IM. Discontinue Prolixin Deconate. Clozaril 25 mg daily Lovenox 40 mg daily Greater than 50% of the session was spent on counseling and/or coordination of care Reason for contiued inpatient stay Substantial Risk for: harm to self, harm to others, inability to function and med/psych decompensation
[2020-10-09] MEDS: Enoxaparin Sodium 40 MG/0.4 ML SYRINGE SUBCUT (15:00)
[2020-10-10] MEDS: OLANZapine ODT 10 MG TAB.RAPDIS 15 MG TRANSLINGU ×2 (08:19→20:23)
[2020-10-10] MEDS: cloZAPine 25 MG TABLET PO (08:19)
[2020-10-10] MEDS: Ferrous Sulfate 324 MG TABLET.DR PO (08:22)
[2020-10-10] MEDS: Enoxaparin Sodium 40 MG/0.4 ML SYRINGE SUBCUT (14:17)
--- NOTE | 2020-10-10 14:57 | P.PNPSI_ITS ---
Subjective Subjective Date of Service: 10/10/20 Reason For Visit: psychosis Subjective Notes: Conditional Voluntary Healthcare Proxy: No Guardianship: No Medical Problems Affecting Mental Status: No Interim History: Accepted psychiatric meds with reluctance per team. Approachable, when questioned appears to want to respond as he thinks the other would want it and appear to contemplate choices, however remains inconsistent with responses and presentation of symptoms. Sleep continues to be intermittent. Appetite improved yet with variability. Clozaril not being accepted consistently by pt although he states he will take it. He did accept this today. Medication Compliance: Intermittent Side effects from medications: No Attending Groups: No Review of Systems Acute medical concerns: No Medical Review of Systems: unchanged Review of Systems Genitourinary: Reports change in libido Reports behavioral changes and Reports memory loss Psychiatric: Reports abnormal sleep pattern, Reports behavioral changes, Reports change in appetite, Reports change in libido, Reports difficulty concentrating, Reports auditory hallucinations, Reports memory loss, Reports mood swings, Reports paranoia and Reports homicidal ideation (has verbalized this without intent in a confused manner) Endocrine: Reports change in libido Mental Status Exam Mental Status Exam Patient Appearance: Appropriate Patient Orientation: Person and Place Level of Consciousness: Alert Patient Behavior: Guarded, Talkative, Suspicious, Avoidant, Distractible and Good Eye Contact Mood Description: Withdrawn Affect Description: Constricted Patient Cognition Impaired: Yes Ability to Follow Directions: Fair Speech Pattern: Spontaneous Speech Memory Description: Remote Impaired and Episodic Impaired Hallucinations: Auditory and Visual Delusions: Paranoid Ideation Perceptual Disturbances: Derealization Thought Process: Illogical and Distracted Thought Content: positive for Thought Blocking and positive for Homicidal Ideation (passive verbalized today to team with confusion) Depressive Symptoms: Difficulty Sleeping, Changes in Appetite and Loss of Energy Judgement: Poor Diagnostics Vital Signs (24Hr): Body Mass Index 37.3 Labs Results: 10/09/20 08:00 09/30/20 09:50 Labs: Laboratory Results - last 48 hr 10/09/20 10/09/20 08:00 12:03 WBC 10.3 RBC 4.09 L Hgb 10.8 L Hct 34.7 L MCV 84.8 MCH 26.4 L MCHC 31.1 RDW 16.6 H Plt Count 328 MPV 9.9 Immature Gran % (Auto) 0.7 H Neut % (Auto) 61.8 Lymph % (Auto) 26.3 [place] % (Auto) 8.6 Eos % (Auto) 2.3 Baso % (Auto) 0.3 Lymph # (Auto) 2.7 [place] # (Auto) 0.9 Eos # (Auto) 0.2 Baso # (Auto) 0.0 Abs Immat Gran (auto) 0.07 H Absolute Neuts (auto) 6.4 Absolute Nucleated RBC 0.000 Nucleated RBC % (auto) 0.0 POC Glucose 108 Imaging Radiology Impressions: ITS Impressions KUB X-Ray 07/22/20 17:13 IMPRESSION: Moderate volume of stool scattered in colon. No bowel obstruction. Medications Medications Current Medications Generic Name Dose Route Start Last Admin Trade Name Freq PRN Reason Stop Dose Admin Acetaminophen 650 mg 07/23/20 21:13 08/11/20 12:28 Acetaminophen 325 Mg Tablet PO 650 mg Q6H PRN Administration Headache/Pain Mild Scale (1-3) Al Hydroxide/Mg Hydroxide 30 ml 07/23/20 21:13 Magnesium Hydrox/Alum Hydrox 30 Ml Oral.Susp PO Q6H PRN Heartburn/Nausea Aspirin 81 mg 07/25/20 09:00 10/10/20 09:12 Aspirin Enteric Coated 81 Mg Tablet. PO Not Given DAILY [facility] Atorvastatin Calcium 80 mg 07/23/20 21:00 10/09/20 20:31 Atorvastatin Calcium 80 Mg Tablet PO Not Given BEDTIME [facility] Benztropine Mesylate 1 mg 10/08/20 21:00 10/10/20 09:12 Benztropine Mesylate 1 Mg Tablet PO Not Given BID [facility] Clozapine 25 mg 10/08/20 09:00 10/10/20 08:19 Clozapine 25 Mg Tablet PO 25 mg DAILY [facility] Administration Enoxaparin Sodium 40 mg 10/07/20 15:00 10/10/20 14:17 Enoxaparin Sodium 40 Mg/0.4 Ml Syringe SUBCUT 40 mg Q24H [facility] Administration Ferrous Sulfate 324 mg 09/02/20 09:00 10/10/20 08:22 Ferrous Sulfate 324 Mg Tablet. PO 324 mg DAILY [facility] Administration Finasteride 5 mg 07/23/20 17:00 10/10/20 09:12 Finasteride 5 Mg Tablet PO Not Given DAILY [facility] Hydroxyzine HCl 25 mg 07/23/20 21:13 08/17/20 03:00 Hydroxyzine Hcl 25 Mg Tablet PO 25 mg BEDTIME PRN Administration Anxiety Loperamide HCl 2 mg 07/24/20 15:43 07/24/20 15:54 Loperamide Hcl 2 Mg Capsule PO 2 mg Q4H PRN Administration Diarrhea Magnesium Hydroxide 30 ml 07/23/20 21:13 Milk Of Magnesia 30 Ml Oral.Susp PO DAILY PRN Constipation Metformin HCl 500 mg 08/14/20 17:00 10/10/20 09:12 Metformin Hcl 500 Mg Tablet PO Not Given BIDWM [facility] Multi-Ingred Cream/Lotion/Oil/Oint 1 appl 07/24/20 21:00 10/10/20 09:12 Mineral Oil/Petrolatum,White 106 Gm Tube TOPICAL Not Given BID [facility] Multi-Ingred Cream/Lotion/Oil/Oint 1 appl 10/09/20 21:00 10/10/20 09:12 Mineral Oil/Petrolatum,White 106 Gm Tube TOPICAL Not Given BID [facility] Multivitamins/Minerals 1 tab 09/25/20 13:30 10/10/20 09:12 Multivitamin With Minerals Tablet PO Not Given DAILY [facility] Patient Own 1 each 08/14/20 10:27 08/14/20 12:06 Medication (Thera PO 1 each Breath Dry Mouth Q4H PRN Administration Lozenge) Dry Mouth Patient Own 1 each 08/14/20 10:30 10/10/20 09:13 Medication (Biotene PO Not Given 15 Ml) BID [facility] Nystatin 1 appl 07/26/20 19:25 10/10/20 09:12 Nystatin Cream 15 Gm Tube TOPICAL Not Given DAILY [facility] Protocol Olanzapine 15 mg 10/06/20 12:18 10/07/20 20:20 Olanzapine 10 Mg Vial IM 15 mg BID PRN Administration if pt ref po zydis rafy fernandez Olanzapine 15 mg 10/06/20 21:00 10/10/20 08:19 Olanzapine Odt 10 Mg Tab.Rapdis TRANSLINGU 15 mg BID [facility] Administration Omeprazole 20 mg 07/24/20 06:30 10/10/20 09:11 Omeprazole 20 Mg Capsule.Dr PO Not Given DAILY@0630 [facility] Ondansetron HCl 4 mg 08/08/20 09:04 08/08/20 09:27 Ondansetron Odt 4 Mg Tab.Rapdis TRANSLINGU 4 mg Q6H PRN Administration Nausea Saliva Substitute 1 spray 06/08/21 15:06 Dry Mouth [place] 30 Ml [place] MUCOUS MEM Q2H PRN Dry Mouth Tamsulosin HCl 0.4 mg 07/25/20 21:00 10/09/20 20:32 Tamsulosin Hcl 0.4 Mg Capsule PO Not Given BEDTIME [facility] Trazodone HCl 50 mg 07/23/20 21:13 08/17/20 03:00 Trazodone Hcl 50 Mg Tablet PO 50 mg BEDTIME PRN Administration Insomnia Vitamin D 50 mcg 07/23/20 21:00 10/09/20 20:31 Cholecalciferol (Vitamin D3) 25 Mcg Tablet PO Not Given BEDTIME [facility] Allergies Allergies Allergy/AdvReac Type Severity Reaction Status Date / Time No Known Allergies Allergy Verified 07/21/20 16:39 Assessment & Plan Assessment & Plan (1) Schizophrenia, paranoid, subchronic with acute exacerbation: Status: Acute Code(s): F20.0 - Paranoid schizophrenia Assessment and Plan: Prolixin Decanoate 12.5 mg given 09/25/20. Increase Zydis 15 mg bid. If pt refuses Zyprexa 15 mg bid IM. Discontinue Prolixin Deconate. Clozaril 25 mg daily Lovenox 40 mg daily Greater than 50% of the session was spent on counseling and/or coordination of care Reason for contiued inpatient stay Substantial Risk for: harm to self, harm to others, inability to function, rapid decompensation and med/psych decompensation
[2020-10-11] MEDS: Ferrous Sulfate 324 MG TABLET.DR PO (07:56)
[2020-10-11] MEDS: OLANZapine ODT 10 MG TAB.RAPDIS 15 MG TRANSLINGU ×2 (07:57→22:11)
[2020-10-11] MEDS: Enoxaparin Sodium 40 MG/0.4 ML SYRINGE SUBCUT (14:04)
[2020-10-11] MEDS: Acetaminophen 325 MG TABLET 650 MG PO (16:33)
[2020-10-11] MEDS: metFORMIN HCl 500 MG TABLET PO (17:10)
--- NOTE | 2020-10-11 17:56 | HO.PSYCHPN ---
Subjective Subjective Date of Service: 10/12/20 Reason For Visit: psychosis Subjective Notes: Conditional Voluntary Interim History: Patient seen and discussed with team. Has community Jesse's order, lives in custodial. Patient evaluated this morning and upon interview he reports he is good. He denies having questions or concerns. Says I dont think I slept that long, estimates he slept 5-6 hours at night and says his energy is very good. He is sitting in his chair, watching television, has 1:1 staff. Per manager staffing, Juan allowed examination of his feet and was amenable to wearing socks to protect skin integrity. He is med adherent, tolerating meds well. He is eating and sleeping per manager staffing. In the milieu, patient is safe, isolative in behavior. Denies SI/SIB/HI upon inquiry. Denies irritability or assaultive ideation. Says he feels safe. Medication Compliance: Yes Side effects from medications: No Attending Groups: No Review of Systems Medical Review of Systems: unchanged Mental Status Exam Mental Status Exam Narrative: Patient Appearance:?Appropriate Patient Orientation:?Person and Place Level of Consciousness:?Alert Patient Behavior:?Guarded, Talkative, Suspicious, Avoidant, Distractible and Good Eye Contact Mood Description:?Withdrawn Affect Description:?Constricted Patient Cognition Impaired:?Yes Ability to Follow Directions:?Fair Speech Pattern:?Spontaneous Speech Memory Description:?Remote Impaired and Episodic Impaired Hallucinations:?Auditory and Visual Delusions:?Paranoid Ideation Perceptual Disturbances:?Derealization Thought Process:?Illogical and Distracted Thought Content:?positive for Thought Blocking and positive for Homicidal Ideation (passive verbalized today to team with confusion) Depressive Symptoms:?Difficulty Sleeping, Changes in Appetite and Loss of Energy Judgement:?Poor Diagnostics Vital Signs (24Hr): Body Mass Index 37.3 Labs Results: 10/09/20 08:00 09/30/20 09:50 Imaging Radiology Impressions: ITS Impressions KUB X-Ray 07/22/20 17:13 IMPRESSION: Moderate volume of stool scattered in colon. No bowel obstruction. Medications Medications Current Medications Generic Name Dose Route Start Last Admin Trade Name Freq PRN Reason Stop Dose Admin Acetaminophen 650 mg 07/23/20 21:13 10/11/20 16:33 Acetaminophen 325 Mg Tablet PO 650 mg Q6H PRN Administration Headache/Pain Mild Scale (1-3) Al Hydroxide/Mg Hydroxide 30 ml 07/23/20 21:13 Magnesium Hydrox/Alum Hydrox 30 Ml Oral.Susp PO Q6H PRN Heartburn/Nausea Aspirin 81 mg 07/25/20 09:00 10/11/20 08:22 Aspirin Enteric Coated 81 Mg Tablet. PO Not Given DAILY [facility] Atorvastatin Calcium 80 mg 07/23/20 21:00 10/10/20 20:28 Atorvastatin Calcium 80 Mg Tablet PO Not Given BEDTIME [facility] Benztropine Mesylate 1 mg 10/08/20 21:00 10/11/20 08:22 Benztropine Mesylate 1 Mg Tablet PO Not Given BID [facility] Clozapine 25 mg 10/08/20 09:00 10/11/20 08:22 Clozapine 25 Mg Tablet PO Not Given DAILY [facility] Enoxaparin Sodium 40 mg 10/07/20 15:00 10/11/20 14:04 Enoxaparin Sodium 40 Mg/0.4 Ml Syringe SUBCUT 40 mg Q24H [facility] Administration Ferrous Sulfate 324 mg 09/02/20 09:00 10/11/20 07:56 Ferrous Sulfate 324 Mg Tablet. PO 324 mg DAILY [facility] Administration Finasteride 5 mg 07/23/20 17:00 10/11/20 08:22 Finasteride 5 Mg Tablet PO Not Given DAILY [facility] Hydroxyzine HCl 25 mg 07/23/20 21:13 08/17/20 03:00 Hydroxyzine Hcl 25 Mg Tablet PO 25 mg BEDTIME PRN Administration Anxiety Loperamide HCl 2 mg 07/24/20 15:43 07/24/20 15:54 Loperamide Hcl 2 Mg Capsule PO 2 mg Q4H PRN Administration Diarrhea Magnesium Hydroxide 30 ml 07/23/20 21:13 Milk Of Magnesia 30 Ml Oral.Susp PO DAILY PRN Constipation Metformin HCl 500 mg 08/14/20 17:00 10/11/20 17:10 Metformin Hcl 500 Mg Tablet PO 500 mg BIDWM [facility] Administration Multi-Ingred Cream/Lotion/Oil/Oint 1 appl 07/24/20 21:00 10/11/20 08:22 Mineral Oil/Petrolatum,White 106 Gm Tube TOPICAL Not Given BID [facility] Multi-Ingred Cream/Lotion/Oil/Oint 1 appl 10/09/20 21:00 10/11/20 08:22 Mineral Oil/Petrolatum,White 106 Gm Tube TOPICAL Not Given BID [facility] Multivitamins/Minerals 1 tab 09/25/20 13:30 10/11/20 08:23 Multivitamin With Minerals Tablet PO Not Given DAILY [facility] Patient Own 1 each 08/14/20 10:27 08/14/20 12:06 Medication (Thera PO 1 each Breath Dry Mouth Q4H PRN Administration Lozenge) Dry Mouth Patient Own 1 each 08/14/20 10:30 10/11/20 08:23 Medication (Biotene PO Not Given 15 Ml) BID [facility] Nystatin 1 appl 07/26/20 19:25 10/11/20 08:23 Nystatin Cream 15 Gm Tube TOPICAL Not Given DAILY [facility] Protocol Olanzapine 15 mg 10/06/20 12:18 10/07/20 20:20 Olanzapine 10 Mg Vial IM 15 mg BID PRN Administration if pt ref po zydis per jim Olanzapine 15 mg 10/06/20 21:00 10/11/20 07:57 Olanzapine Odt 10 Mg Tab.Rapdis TRANSLINGU 15 mg BID [facility] Administration Omeprazole 20 mg 07/24/20 06:30 10/11/20 08:20 Omeprazole 20 Mg Capsule.Dr PO Not Given DAILY@0630 [facility] Ondansetron HCl 4 mg 08/08/20 09:04 08/08/20 09:27 Ondansetron Odt 4 Mg Tab.Rapdis TRANSLINGU 4 mg Q6H PRN Administration Nausea Saliva Substitute 1 spray 08/12/20 15:06 Dry Mouth [place] 30 Ml [place] MUCOUS MEM Q2H PRN Dry Mouth Tamsulosin HCl 0.4 mg 07/25/20 21:00 10/10/20 20:28 Tamsulosin Hcl 0.4 Mg Capsule PO Not Given BEDTIME [facility] Trazodone HCl 50 mg 07/23/20 21:13 08/17/20 03:00 Trazodone Hcl 50 Mg Tablet PO 50 mg BEDTIME PRN Administration Insomnia Vitamin D 50 mcg 07/23/20 21:00 10/10/20 20:28 Cholecalciferol (Vitamin D3) 25 Mcg Tablet PO Not Given BEDTIME [facility] Allergies Allergies Allergy/AdvReac Type Severity Reaction Status Date / Time No Known Allergies Allergy Verified 07/21/20 16:39 Assessment & Plan Assessment & Plan (1) Schizophrenia, paranoid, subchronic with acute exacerbation: Status: Acute Code(s): F20.0 - Paranoid schizophrenia Assessment and Plan: Prolixin Decanoate 12.5 mg given 09/25/20. Continue Zydis 15 mg bid. If pt refuses Zyprexa 15 mg bid IM. Prolixin Deconate was D/C'd. Clozaril 25 mg daily Lovenox 40 mg daily Greater than 50% of the session was spent on counseling and/or coordination of care Reason for contiued inpatient stay Substantial Risk for: rapid decompensation and med/psych decompensation
[2020-10-11] MEDS: Mineral Oil/Petrolatum,White 106 GM Tube 1 APPL TOPICAL (22:13)
[2020-10-12] MEDS: traZODone HCL 50 MG TABLET PO (00:52)
[2020-10-12] MEDS: OLANZapine ODT 10 MG TAB.RAPDIS 15 MG TRANSLINGU ×2 (08:14→22:22)
[2020-10-12] MEDS: cloZAPine 25 MG TABLET PO (08:15)
--- NOTE | 2020-10-12 14:18 | HO.PSYCHPN ---
Subjective Subjective Date of Service: 10/13/20 Reason For Visit: psychosis Subjective Notes: Conditional Voluntary Interim History: Patient seen and discussed with team. Has community Jesse's order, lives in [place] [facility]. Patient evaluated this morning and upon interview he reports he is sleeping well, mood is good. He is now wearing socks. Denies having questions or concerns. He is lying down, has 1:1 staff. Per staffing account manager, he is med adherent, taking his iron. In the milieu, patient is safe, isolative in behavior. Denies SI/SIB/HI upon inquiry. Denies irritability or assaultive ideation. Says he feels safe. Mental Status Exam Mental Status Exam Narrative: Narrative:?Patient Appearance:?Appropriate Patient Orientation:?Person and Place Level of Consciousness:?Alert Patient Behavior:?Guarded, Talkative, Suspicious, Avoidant, Distractible and Good Eye Contact Mood Description:? good Affect Description:?Constricted Patient Cognition Impaired:?Yes Ability to Follow Directions:?Fair Speech Pattern:?Spontaneous Speech Memory Description:?Remote Impaired and Episodic Impaired Hallucinations:?Auditory and Visual Delusions:?Paranoid Ideation Perceptual Disturbances:?Derealization Thought Process:?Illogical and Distracted Thought Content:?positive for Thought Blocking and positive for Homicidal Ideation (passive verbalized today to team with confusion) Depressive Symptoms:?Difficulty Sleeping, Changes in Appetite and Loss of Energy Judgement:?Poor Diagnostics Vital Signs (24Hr): Body Mass Index 37.3 Labs Results: 10/09/20 08:00 09/30/20 09:50 Imaging Radiology Impressions: ITS Impressions KUB X-Ray 07/22/20 17:13 IMPRESSION: Moderate volume of stool scattered in colon. No bowel obstruction. Medications Medications Current Medications Generic Name Dose Route Start Last Admin Trade Name Freq PRN Reason Stop Dose Admin Acetaminophen 650 mg 07/23/20 21:13 10/11/20 16:33 Acetaminophen 325 Mg Tablet PO 650 mg Q6H PRN Administration Headache/Pain Mild Scale (1-3) Al Hydroxide/Mg Hydroxide 30 ml 07/23/20 21:13 Magnesium Hydrox/Alum Hydrox 30 Ml Oral.Susp PO Q6H PRN Heartburn/Nausea Aspirin 81 mg 07/25/20 09:00 10/12/20 09:42 Aspirin Enteric Coated 81 Mg Tablet.Dr EDWARDS Not Given DAILY [facility] Atorvastatin Calcium 80 mg 07/23/20 21:00 10/11/20 22:07 Atorvastatin Calcium 80 Mg Tablet PO Not Given BEDTIME ON LICENSE OF [facility] Benztropine Mesylate 1 mg 10/08/20 21:00 10/12/20 09:42 Benztropine Mesylate 1 Mg Tablet PO Not Given BID ON LICENSE OF [facility] Clozapine 25 mg 10/08/20 09:00 10/12/20 08:15 Clozapine 25 Mg Tablet PO 25 mg DAILY [facility] Administration Enoxaparin Sodium 40 mg 10/07/20 15:00 10/11/20 14:04 Enoxaparin Sodium 40 Mg/0.4 Ml Syringe SUBCUT 40 mg Q24H [facility] Administration Ferrous Sulfate 324 mg 09/02/20 09:00 10/12/20 09:42 Ferrous Sulfate 324 Mg Tablet.Dr PO Not Given DAILY [facility] Finasteride 5 mg 07/23/20 17:00 10/12/20 09:42 Finasteride 5 Mg Tablet PO Not Given DAILY ON LICENSE OF [facility] Hydroxyzine HCl 25 mg 07/23/20 21:13 08/17/20 03:00 Hydroxyzine Hcl 25 Mg Tablet PO 25 mg BEDTIME PRN Administration Anxiety Loperamide HCl 2 mg 07/24/20 15:43 07/24/20 15:54 Loperamide Hcl 2 Mg Capsule PO 2 mg Q4H PRN Administration Diarrhea Magnesium Hydroxide 30 ml 07/23/20 21:13 Milk Of Magnesia 30 Ml Oral.Susp PO DAILY PRN Constipation Metformin HCl 500 mg 08/14/20 17:00 10/12/20 09:41 Metformin Hcl 500 Mg Tablet PO Not Given BIDWM ON LICENSE OF [facility] Multi-Ingred Cream/Lotion/Oil/Oint 1 appl 07/24/20 21:00 10/12/20 09:42 Mineral Oil/Petrolatum,White 106 Gm Tube TOPICAL Not Given BID ON LICENSE OF [facility] Multi-Ingred Cream/Lotion/Oil/Oint 1 appl 10/09/20 21:00 10/12/20 09:43 Mineral Oil/Petrolatum,White 106 Gm Tube TOPICAL Not Given BID ON LICENSE OF [facility] Multivitamins/Minerals 1 tab 09/25/20 13:30 10/12/20 09:43 Multivitamin With Minerals Tablet PO Not Given DAILY ON LICENSE OF [facility] Patient Own 1 each 08/14/20 10:27 08/14/20 12:06 Medication (Thera PO 1 each Breath Dry Mouth Q4H PRN Administration Lozenge) Dry Mouth Patient Own 1 each 08/14/20 10:30 10/12/20 09:43 Medication (Biotene PO Not Given 15 Ml) BID ON LICENSE OF [facility] Nystatin 1 appl 07/26/20 19:25 10/12/20 09:43 Nystatin Cream 15 Gm Tube TOPICAL Not Given DAILY ON LICENSE OF [facility] Protocol Olanzapine 15 mg 10/06/20 12:18 10/07/20 20:20 Olanzapine 10 Mg Vial IM 15 mg BID PRN Administration if pt ref po zydis per jim Olanzapine 15 mg 10/06/20 21:00 10/12/20 08:14 Olanzapine Odt 10 Mg Tab.Rapdis TRANSLINGU 15 mg BID ON LICENSE OF [facility] Administration Omeprazole 20 mg 07/24/20 06:30 10/12/20 09:41 Omeprazole 20 Mg Capsule.Dr PO Not Given DAILY@0630 ON LICENSE OF [facility] Ondansetron HCl 4 mg 08/08/20 09:04 08/08/20 09:27 Ondansetron Odt 4 Mg Tab.Rapdis TRANSLINGU 4 mg Q6H PRN Administration Nausea Saliva Substitute 1 spray 08/12/20 15:06 Dry Mouth [place] 30 Ml [place] MUCOUS MEM Q2H PRN Dry Mouth Tamsulosin HCl 0.4 mg 07/25/20 21:00 10/11/20 22:09 Tamsulosin Hcl 0.4 Mg Capsule PO Not Given BEDTIME ON LICENSE OF [facility] Trazodone HCl 50 mg 07/23/20 21:13 10/12/20 00:52 Trazodone Hcl 50 Mg Tablet PO 50 mg BEDTIME PRN Administration Insomnia Vitamin D 50 mcg 07/23/20 21:00 10/11/20 22:07 Cholecalciferol (Vitamin D3) 25 Mcg Tablet PO Not Given BEDTIME ON LICENSE OF [facility] Allergies Allergies Allergy/AdvReac Type Severity Reaction Status Date / Time No Known Allergies Allergy Verified 07/21/20 16:39 Assessment & Plan Assessment & Plan (1) Schizophrenia, paranoid, subchronic with acute exacerbation: Status: Acute Code(s): F20.0 - Paranoid schizophrenia Assessment and Plan: Prolixin Decanoate 12.5 mg given 09/25/20. Continue Zydis 15 mg bid. If pt refuses Zyprexa 15 mg bid IM. Prolixin Deconate was D/C'd. Clozaril 25 mg daily Lovenox 40 mg daily Assessment and Plan: No changes in medication today, med adherent and tolerating them well. Greater than 50% of the session was spent on counseling and/or coordination of care Reason for contiued inpatient stay Substantial Risk for: rapid decompensation and med/psych decompensation
[2020-10-12] MEDS: Enoxaparin Sodium 40 MG/0.4 ML SYRINGE SUBCUT (14:45)
[2020-10-12] MEDS: metFORMIN HCl 500 MG TABLET PO (18:06)
[2020-10-12] MEDS: Mineral Oil/Petrolatum,White 106 GM Tube 1 APPL TOPICAL (22:12)
[2020-10-13] MEDS: Ferrous Sulfate 324 MG TABLET.DR PO (08:28)
[2020-10-13] MEDS: OLANZapine ODT 10 MG TAB.RAPDIS 15 MG TRANSLINGU ×2 (08:28→21:18)
[2020-10-13] MEDS: cloZAPine 25 MG TABLET PO (08:28)
[2020-10-13 10:03] LABS: Creatinine Clr Calc Pharmacy 169.7; Estimated Glomerular Filt Rate > 60
--- NOTE | 2020-10-13 14:07 | PC.NURSE ---
calling central supply for oh stockings as xxl size needed.
[2020-10-13] MEDS: metFORMIN HCl 500 MG TABLET PO (16:34)
--- NOTE | 2020-10-13 17:29 | HO.PSYCHPN ---
Subjective Subjective Date of Service: 10/14/20 Reason For Visit: psychosis Subjective Notes: Conditional Voluntary Healthcare Proxy: No Guardianship: No Medical Problems Affecting Mental Status: No Interim History: Accepting of Olanzapine and Clozaril. More visable today on the unit. Walking with team, interactive with peers. Intake is improving. Brother has left a message with [facility] to discuss aftercare and has not heard back from that team as yet. Medication Compliance: Yes Side effects from medications: No Attending Groups: No Review of Systems Acute medical concerns: No Medical Review of Systems: unchanged Review of Systems Reports behavioral changes Psychiatric: Reports behavioral changes, Reports change in appetite, Reports depression, Reports difficulty concentrating, Reports auditory hallucinations, Reports paranoia and Reports visual hallucinations Mental Status Exam Mental Status Exam Patient Appearance: Appropriate Patient Orientation: Person and Place Level of Consciousness: Alert Patient Behavior: Guarded, Talkative, Suspicious and Good Eye Contact Mood Description: Suspicious and Withdrawn Affect Description: Constricted Patient Cognition Impaired: Yes Ability to Follow Directions: Fair Speech Pattern: Spontaneous Speech and Long Pauses Memory Description: Remote Impaired and Episodic Impaired Hallucinations: Auditory and Visual Delusions: Paranoid Ideation and Present Thought Process: Distracted Thought Content: positive for [place] Depressive Symptoms: Diff. Making Decisions, Changes in Appetite, Significant Weight Loss, Increased Fatigue, Loss of Energy and Difficulty Concentrating Judgement: Poor Diagnostics Vital Signs (24Hr): Body Mass Index 37.3 Labs Results: 10/09/20 08:00 10/13/20 08:03 Labs: Laboratory Results - last 48 hr 10/13/20 08:03 Creatinine 0.76 Estim Creat Clear Calc 169.7 Estimated GFR > 60 Imaging Radiology Impressions: ITS Impressions KUB X-Ray 07/22/20 17:13 IMPRESSION: Moderate volume of stool scattered in colon. No bowel obstruction. Medications Medications Current Medications Generic Name Dose Route Start Last Admin Trade Name Freq PRN Reason Stop Dose Admin Acetaminophen 650 mg 07/23/20 21:13 10/11/20 16:33 Acetaminophen 325 Mg Tablet PO 650 mg Q6H PRN Administration Headache/Pain Mild Scale (1-3) Al Hydroxide/Mg Hydroxide 30 ml 07/23/20 21:13 Magnesium Hydrox/Alum Hydrox 30 Ml Oral.Susp PO Q6H PRN Heartburn/Nausea Aspirin 81 mg 07/25/20 09:00 10/13/20 08:33 Aspirin Enteric Coated 81 Mg Tablet. PO Not Given DAILY [facility] Atorvastatin Calcium 80 mg 07/23/20 21:00 10/12/20 22:11 Atorvastatin Calcium 80 Mg Tablet PO Not Given BEDTIME [facility] Benztropine Mesylate 1 mg 10/08/20 21:00 10/13/20 08:34 Benztropine Mesylate 1 Mg Tablet PO Not Given BID [facility] Clozapine 25 mg 10/08/20 09:00 10/13/20 08:28 Clozapine 25 Mg Tablet PO 25 mg DAILY [facility] Administration Enoxaparin Sodium 40 mg 10/07/20 15:00 10/13/20 14:00 Enoxaparin Sodium 40 Mg/0.4 Ml Syringe SUBCUT Not Given Q24H [facility] Ferrous Sulfate 324 mg 09/02/20 09:00 10/13/20 08:28 Ferrous Sulfate 324 Mg Tablet. PO 324 mg DAILY [facility] Administration Finasteride 5 mg 07/23/20 17:00 10/13/20 08:34 Finasteride 5 Mg Tablet PO Not Given DAILY [facility] Hydroxyzine HCl 25 mg 07/23/20 21:13 08/17/20 03:00 Hydroxyzine Hcl 25 Mg Tablet PO 25 mg BEDTIME PRN Administration Anxiety Loperamide HCl 2 mg 07/24/20 15:43 07/24/20 15:54 Loperamide Hcl 2 Mg Capsule PO 2 mg Q4H PRN Administration Diarrhea Magnesium Hydroxide 30 ml 07/23/20 21:13 Milk Of Magnesia 30 Ml Oral.Susp PO DAILY PRN Constipation Metformin HCl 500 mg 08/14/20 17:00 10/13/20 16:34 Metformin Hcl 500 Mg Tablet PO 500 mg BIDWM [facility] Administration Multi-Ingred Cream/Lotion/Oil/Oint 1 appl 07/24/20 21:00 10/13/20 08:34 Mineral Oil/Petrolatum,White 106 Gm Tube TOPICAL Not Given BID [facility] Multi-Ingred Cream/Lotion/Oil/Oint 1 appl 10/09/20 21:00 10/13/20 08:34 Mineral Oil/Petrolatum,White 106 Gm Tube TOPICAL Not Given BID [facility] Multivitamins/Minerals 1 tab 09/25/20 13:30 10/13/20 08:34 Multivitamin With Minerals Tablet PO Not Given DAILY [facility] Patient Own 1 each 08/14/20 10:27 08/14/20 12:06 Medication (Thera PO 1 each Breath Dry Mouth Q4H PRN Administration Lozenge) Dry Mouth Patient Own 1 each 08/14/20 10:30 10/13/20 08:34 Medication (Biotene PO Not Given 15 Ml) BID [facility] Nystatin 1 appl 07/26/20 19:25 10/13/20 08:34 Nystatin Cream 15 Gm Tube TOPICAL Not Given DAILY [facility] Protocol Olanzapine 15 mg 10/06/20 12:18 10/07/20 20:20 Olanzapine 10 Mg Vial IM 15 mg BID PRN Administration if pt ref po zydis per fernandez Olanzapine 15 mg 10/06/20 21:00 10/13/20 08:28 Olanzapine Odt 10 Mg Tab.Rapdis TRANSLINGU 15 mg BID [facility] Administration Omeprazole 20 mg 07/24/20 06:30 10/13/20 08:33 Omeprazole 20 Mg Capsule.Dr PO Not Given DAILY@0630 [facility] Ondansetron HCl 4 mg 08/08/20 09:04 08/08/20 09:27 Ondansetron Odt 4 Mg Tab.Rapdis TRANSLINGU 4 mg Q6H PRN Administration Nausea Saliva Substitute 1 spray 08/12/20 15:06 Dry Mouth [place] 30 Ml [place] MUCOUS MEM Q2H PRN Dry Mouth Tamsulosin HCl 0.4 mg 07/25/20 21:00 10/12/20 22:13 Tamsulosin Hcl 0.4 Mg Capsule PO Not Given BEDTIME [facility] Trazodone HCl 50 mg 07/23/20 21:13 10/12/20 00:52 Trazodone Hcl 50 Mg Tablet PO 50 mg BEDTIME PRN Administration Insomnia Vitamin D 50 mcg 07/23/20 21:00 10/12/20 22:12 Cholecalciferol (Vitamin D3) 25 Mcg Tablet PO Not Given BEDTIME [facility] Allergies Allergies Allergy/AdvReac Type Severity Reaction Status Date / Time No Known Allergies Allergy Verified 07/21/20 16:39 Assessment & Plan Assessment & Plan (1) Schizophrenia, paranoid, subchronic with acute exacerbation: Status: Acute Code(s): F20.0 - Paranoid schizophrenia Assessment and Plan: Prolixin Decanoate 12.5 mg given 09/25/20. Continue Zydis 15 mg bid. If pt refuses Zyprexa 15 mg bid IM. Prolixin Deconate was D/C'd. Clozaril 25 mg daily Lovenox 40 mg daily Assessment and Plan: No changes in medication today, med adherent and tolerating them well. Greater than 50% of the session was spent on counseling and/or coordination of care Informed Consent: does not understand Reason for contiued inpatient stay Substantial Risk for: harm to self, harm to others, inability to function and med/psych decompensation
[2020-10-14] MEDS: traZODone HCL 50 MG TABLET PO
[2020-10-14] MEDS: OLANZapine ODT 10 MG TAB.RAPDIS 15 MG TRANSLINGU ×2 (09:42→22:35)
[2020-10-14] MEDS: Ferrous Sulfate 324 MG TABLET.DR PO (09:43)
[2020-10-14] MEDS: cloZAPine 25 MG TABLET PO (09:43)
[2020-10-14] MEDS: metFORMIN HCl 500 MG TABLET PO (17:11)
--- NOTE | 2020-10-14 18:56 | HO.PSYCHPN ---
Subjective Subjective Date of Service: 10/15/20 Reason For Visit: psychosis Subjective Notes: Conditional Voluntary Healthcare Proxy: No Guardianship: No Medical Problems Affecting Mental Status: No Interim History: Juan has been in the milieu today with his 1:1. He reports feeling well, however, appears pre-occupied and distant, easily distracted. He is accepting of both Olanzapine and Clozaril. Medication Compliance: Yes (psychiatric meds only) Side effects from medications: No Attending Groups: No Review of Systems Acute medical concerns: No Medical Review of Systems: unchanged Review of Systems Reports behavioral changes Psychiatric: Reports behavioral changes, Reports auditory hallucinations, Reports irritability (reportedly giving a finger gesture to some), Reports paranoia and Reports visual hallucinations Mental Status Exam Mental Status Exam Patient Appearance: Appropriate Patient Orientation: Person, Place, Time and Situation Level of Consciousness: Alert Patient Behavior: Guarded, Suspicious, Wandering and Good Eye Contact Mood Description: Suspicious, Withdrawn and Flat Affect Description: Flat Patient Cognition Impaired: Yes Ability to Follow Directions: Fair Speech Pattern: Spontaneous Speech and Long Pauses Memory Description: Remote Impaired and Episodic Impaired Hallucinations: Auditory and Visual Delusions: Paranoid Ideation and Present Thought Process: Distracted Thought Content: positive for Perseveration, positive for Preoccupation, positive for Thought Blocking and positive for Suicidal Ideation (denies) Depressive Symptoms: Increased Irritability Judgement: Poor Diagnostics Vital Signs (24Hr): Body Mass Index 37.3 Labs Results: 10/09/20 08:00 10/13/20 08:03 Labs: Laboratory Results - last 48 hr 10/13/20 08:03 Creatinine 0.76 Estim Creat Clear Calc 169.7 Estimated GFR > 60 Imaging Radiology Impressions: ITS Impressions KUB X-Ray 07/22/20 17:13 IMPRESSION: Moderate volume of stool scattered in colon. No bowel obstruction. Medications Medications Current Medications Generic Name Dose Route Start Last Admin Trade Name Freq PRN Reason Stop Dose Admin Acetaminophen 650 mg 07/23/20 21:13 10/11/20 16:33 Acetaminophen 325 Mg Tablet PO 650 mg Q6H PRN Administration Headache/Pain Mild Scale (1-3) Al Hydroxide/Mg Hydroxide 30 ml 07/23/20 21:13 Magnesium Hydrox/Alum Hydrox 30 Ml Oral.Susp PO Q6H PRN Heartburn/Nausea Aspirin 81 mg 07/25/20 09:00 10/14/20 09:43 Aspirin Enteric Coated 81 Mg Tablet. PO Not Given DAILY [facility] Atorvastatin Calcium 80 mg 07/23/20 21:00 10/13/20 21:29 Atorvastatin Calcium 80 Mg Tablet PO Not Given BEDTIME [facility] Benztropine Mesylate 1 mg 10/08/20 21:00 10/14/20 09:44 Benztropine Mesylate 1 Mg Tablet PO Not Given BID [facility] Clozapine 25 mg 10/08/20 09:00 10/14/20 09:43 Clozapine 25 Mg Tablet PO 25 mg DAILY [facility] Administration Enoxaparin Sodium 40 mg 10/07/20 15:00 10/14/20 14:32 Enoxaparin Sodium 40 Mg/0.4 Ml Syringe SUBCUT Not Given Q24H [facility] Ferrous Sulfate 324 mg 09/02/20 09:00 10/14/20 09:43 Ferrous Sulfate 324 Mg Tablet. PO 324 mg DAILY [facility] Administration Finasteride 5 mg 07/23/20 17:00 10/14/20 09:43 Finasteride 5 Mg Tablet PO Not Given DAILY [facility] Hydroxyzine HCl 25 mg 07/23/20 21:13 08/17/20 03:00 Hydroxyzine Hcl 25 Mg Tablet PO 25 mg BEDTIME PRN Administration Anxiety Loperamide HCl 2 mg 07/24/20 15:43 07/24/20 15:54 Loperamide Hcl 2 Mg Capsule PO 2 mg Q4H PRN Administration Diarrhea Magnesium Hydroxide 30 ml 07/23/20 21:13 Milk Of Magnesia 30 Ml Oral.Susp PO DAILY PRN Constipation Metformin HCl 500 mg 08/14/20 17:00 10/14/20 17:11 Metformin Hcl 500 Mg Tablet PO 500 mg BIDWM [facility] Administration Multi-Ingred Cream/Lotion/Oil/Oint 1 appl 07/24/20 21:00 10/14/20 09:41 Mineral Oil/Petrolatum,White 106 Gm Tube TOPICAL Not Given BID [facility] Multi-Ingred Cream/Lotion/Oil/Oint 1 appl 10/09/20 21:00 10/14/20 09:41 Mineral Oil/Petrolatum,White 106 Gm Tube TOPICAL Not Given BID [facility] Multivitamins/Minerals 1 tab 09/25/20 13:30 10/14/20 09:41 Multivitamin With Minerals Tablet PO Not Given DAILY [facility] Patient Own 1 each 08/14/20 10:27 08/14/20 12:06 Medication (Thera PO 1 each Breath Dry Mouth Q4H PRN Administration Lozenge) Dry Mouth Patient Own 1 each 08/14/20 10:30 10/14/20 09:46 Medication (Biotene PO Not Given 15 Ml) BID [facility] Nystatin 1 appl 07/26/20 19:25 10/14/20 09:41 Nystatin Cream 15 Gm Tube TOPICAL Not Given DAILY [facility] Protocol Olanzapine 15 mg 10/06/20 12:18 10/07/20 20:20 Olanzapine 10 Mg Vial IM 15 mg BID PRN Administration if pt ref po zydis per jim Olanzapine 15 mg 10/06/20 21:00 10/14/20 09:42 Olanzapine Odt 10 Mg Tab.Rapdis TRANSLINGU 15 mg BID [facility] Administration Omeprazole 20 mg 07/24/20 06:30 10/14/20 09:44 Omeprazole 20 Mg Capsule.Dr PO Not Given DAILY@0630 [facility] Ondansetron HCl 4 mg 08/08/20 09:04 08/08/20 09:27 Ondansetron Odt 4 Mg Tab.Rapdis TRANSLINGU 4 mg Q6H PRN Administration Nausea Saliva Substitute 1 spray 08/12/20 15:06 Dry Mouth [place] 30 Ml [place] MUCOUS MEM Q2H PRN Dry Mouth Tamsulosin HCl 0.4 mg 07/25/20 21:00 10/13/20 21:29 Tamsulosin Hcl 0.4 Mg Capsule PO Not Given BEDTIME [facility] Trazodone HCl 50 mg 07/23/20 21:13 10/14/20 00:00 Trazodone Hcl 50 Mg Tablet PO 50 mg BEDTIME PRN Administration Insomnia Vitamin D 50 mcg 07/23/20 21:00 10/13/20 21:29 Cholecalciferol (Vitamin D3) 25 Mcg Tablet PO Not Given BEDTIME [facility] Allergies Allergies Allergy/AdvReac Type Severity Reaction Status Date / Time No Known Allergies Allergy Verified 07/21/20 16:39 Assessment & Plan Assessment & Plan (1) Schizophrenia, paranoid, subchronic with acute exacerbation: Status: Acute Code(s): F20.0 - Paranoid schizophrenia Assessment and Plan: Prolixin Decanoate 12.5 mg given 09/25/20. Continue Zydis 15 mg bid. If pt refuses Zyprexa 15 mg bid IM. Prolixin Deconate was D/C'd. Clozaril 25 mg daily Lovenox 40 mg daily Assessment and Plan: No changes in medication today, med adherent and tolerating them well. Greater than 50% of the session was spent on counseling and/or coordination of care Reason for contiued inpatient stay Substantial Risk for: harm to self, harm to others, inability to function, rapid decompensation and med/psych decompensation
[2020-10-15] MEDS: traZODone HCL 50 MG TABLET PO ×2 (00:13→23:25)
[2020-10-15] MEDS: cloZAPine 25 MG TABLET PO (08:51)
[2020-10-15] MEDS: Benztropine Mesylate 1 MG TABLET PO (08:51)
[2020-10-15] MEDS: OLANZapine ODT 10 MG TAB.RAPDIS 15 MG TRANSLINGU ×2 (08:51→20:56)
[2020-10-15] MEDS: Ferrous Sulfate 324 MG TABLET.DR PO (08:55)
--- NOTE | 2020-10-15 17:10 | HO.PSYCHPN ---
Subjective Subjective Date of Service: 10/15/20 Reason For Visit: psychosis Subjective Notes: Conditional Voluntary Healthcare Proxy: No Guardianship: Yes (Chuy Billings) Medical Problems Affecting Mental Status: No Interim History: Interactive, visable, asks for juice, snacks, initiates dialogue, walking with one to one, some time spent in the common area with others. Denies current SE, symptoms, accepting of his medications today. Medication Compliance: Yes Side effects from medications: No Attending Groups: No Review of Systems Acute medical concerns: No Medical Review of Systems: unchanged Review of Systems Reports behavioral changes Psychiatric: Reports behavioral changes, Reports change in appetite, Reports difficulty concentrating, Reports auditory hallucinations, Reports irritability, Reports paranoia, Reports visual hallucinations and Reports hallucinations Mental Status Exam Mental Status Exam Patient Appearance: Appropriate Patient Orientation: Person, Place, Time and Situation Level of Consciousness: Alert Patient Behavior: Appropriate, Guarded, Talkative, Suspicious, Distractible and Good Eye Contact Mood Description: Suspicious and Withdrawn Affect Description: Constricted Patient Cognition Impaired: Yes Ability to Follow Directions: Fair Speech Pattern: Spontaneous Speech and Long Pauses Memory Description: Remote Impaired and Episodic Impaired Hallucinations: Auditory and Visual Delusions: Paranoid Ideation and Present Perceptual Disturbances: Depersonalization Thought Process: Distracted Thought Content: positive for Mal[place] and positive for Thought Blocking Judgement: Poor Diagnostics Vital Signs (24Hr): Body Mass Index 37.3 Labs Results: 10/09/20 08:00 10/13/20 08:03 Imaging Radiology Impressions: ITS Impressions KUB X-Ray 07/22/20 17:13 IMPRESSION: Moderate volume of stool scattered in colon. No bowel obstruction. Medications Medications Current Medications Generic Name Dose Route Start Last Admin Trade Name Freq PRN Reason Stop Dose Admin Acetaminophen 650 mg 07/23/20 21:13 10/11/20 16:33 Acetaminophen 325 Mg Tablet PO 650 mg Q6H PRN Administration Headache/Pain Mild Scale (1-3) Al Hydroxide/Mg Hydroxide 30 ml 07/23/20 21:13 Magnesium Hydrox/Alum Hydrox 30 Ml Oral.Susp PO Q6H PRN Heartburn/Nausea Aspirin 81 mg 07/25/20 09:00 10/15/20 09:12 Aspirin Enteric Coated 81 Mg Tablet.Dr PO Not Given DAILY [facility] Atorvastatin Calcium 80 mg 07/23/20 21:00 10/14/20 21:49 Atorvastatin Calcium 80 Mg Tablet PO Not Given BEDTIME [facility] Benztropine Mesylate 1 mg 10/08/20 21:00 10/15/20 08:51 Benztropine Mesylate 1 Mg Tablet PO 1 mg BID [facility] Administration Clozapine 25 mg 10/08/20 09:00 10/15/20 08:51 Clozapine 25 Mg Tablet PO 25 mg DAILY [facility] Administration Enoxaparin Sodium 40 mg 10/07/20 15:00 10/15/20 14:54 Enoxaparin Sodium 40 Mg/0.4 Ml Syringe SUBCUT Not Given Q24H [facility] Ferrous Sulfate 324 mg 09/02/20 09:00 10/15/20 08:55 Ferrous Sulfate 324 Mg Tablet.Dr PO 324 mg DAILY [facility] Administration Finasteride 5 mg 07/23/20 17:00 10/15/20 09:12 Finasteride 5 Mg Tablet PO Not Given DAILY [facility] Hydroxyzine HCl 25 mg 07/23/20 21:13 08/17/20 03:00 Hydroxyzine Hcl 25 Mg Tablet PO 25 mg BEDTIME PRN Administration Anxiety Loperamide HCl 2 mg 07/24/20 15:43 07/24/20 15:54 Loperamide Hcl 2 Mg Capsule PO 2 mg Q4H PRN Administration Diarrhea Magnesium Hydroxide 30 ml 07/23/20 21:13 Milk Of Magnesia 30 Ml Oral.Susp PO DAILY PRN Constipation Metformin HCl 500 mg 08/14/20 17:00 10/15/20 09:12 Metformin Hcl 500 Mg Tablet PO Not Given BIDWM [facility] Multi-Ingred Cream/Lotion/Oil/Oint 1 appl 07/24/20 21:00 10/15/20 09:12 Mineral Oil/Petrolatum,White 106 Gm Tube TOPICAL Not Given BID [facility] Multi-Ingred Cream/Lotion/Oil/Oint 1 appl 10/09/20 21:00 10/15/20 09:12 Mineral Oil/Petrolatum,White 106 Gm Tube TOPICAL Not Given BID [facility] Multivitamins/Minerals 1 tab 09/25/20 13:30 10/15/20 09:12 Multivitamin With Minerals Tablet PO Not Given DAILY [facility] Patient Own 1 each 08/14/20 10:27 08/14/20 12:06 Medication (Thera PO 1 each Breath Dry Mouth Q4H PRN Administration Lozenge) Dry Mouth Patient Own 1 each 08/14/20 10:30 10/15/20 09:12 Medication (Biotene PO Not Given 15 Ml) BID [facility] Nystatin 1 appl 07/26/20 19:25 10/15/20 09:12 Nystatin Cream 15 Gm Tube TOPICAL Not Given DAILY [facility] Protocol Olanzapine 15 mg 10/06/20 12:18 10/07/20 20:20 Olanzapine 10 Mg Vial IM 15 mg BID PRN Administration if pt ref po zydis per jim Olanzapine 15 mg 10/06/20 21:00 10/15/20 08:51 Olanzapine Odt 10 Mg Tab.Rapdis TRANSLINGU 15 mg BID [facility] Administration Omeprazole 20 mg 07/24/20 06:30 10/15/20 09:12 Omeprazole 20 Mg Capsule.Dr PO Not Given DAILY@0630 [facility] Ondansetron HCl 4 mg 08/08/20 09:04 08/08/20 09:27 Ondansetron Odt 4 Mg Tab.Rapdis TRANSLINGU 4 mg Q6H PRN Administration Nausea Saliva Substitute 1 spray 08/12/20 15:06 Dry Mouth [place] 30 Ml [place] MUCOUS MEM Q2H PRN Dry Mouth Tamsulosin HCl 0.4 mg 07/25/20 21:00 10/14/20 21:50 Tamsulosin Hcl 0.4 Mg Capsule PO Not Given BEDTIME [facility] Trazodone HCl 50 mg 07/23/20 21:13 10/15/20 00:13 Trazodone Hcl 50 Mg Tablet PO 50 mg BEDTIME PRN Administration Insomnia Vitamin D 50 mcg 07/23/20 21:00 10/14/20 21:49 Cholecalciferol (Vitamin D3) 25 Mcg Tablet PO Not Given BEDTIME [facility] Allergies Allergies Allergy/AdvReac Type Severity Reaction Status Date / Time No Known Allergies Allergy Verified 07/21/20 16:39 Assessment & Plan Assessment & Plan (1) Schizophrenia, paranoid, subchronic with acute exacerbation: Status: Acute Code(s): F20.0 - Paranoid schizophrenia Assessment and Plan: Prolixin Decanoate 12.5 mg given 09/25/20. Discontinued after this one injection Continue Zydis 15 mg bid. If pt refuses Zyprexa 15 mg bid IM. Clozaril 25 mg daily Assessment and Plan: No changes in medication today, med adherent and tolerating them well. Greater than 50% of the session was spent on counseling and/or coordination of care Reason for contiued inpatient stay Substantial Risk for: harm to self, inability to function and rapid decompensation
[2020-10-15] MEDS: Mineral Oil/Petrolatum,White 106 GM Tube 1 APPL TOPICAL (18:21)
[2020-10-16] MEDS: OLANZapine ODT 10 MG TAB.RAPDIS 15 MG TRANSLINGU ×2 (08:57→20:01)
[2020-10-16] MEDS: Omeprazole 20 MG CAPSULE.DR PO (08:59)
[2020-10-16] MEDS: Ferrous Sulfate 324 MG TABLET.DR PO (08:59)
[2020-10-16] MEDS: Benztropine Mesylate 1 MG TABLET PO (09:00)
[2020-10-16] MEDS: metFORMIN HCl 500 MG TABLET PO (09:01)
[2020-10-16] MEDS: cloZAPine 25 MG TABLET PO (09:01)
[2020-10-16] MEDS: Aspirin Enteric Coated 81 MG TABLET.DR PO (09:02)
[2020-10-16] MEDS: Finasteride 5 MG TABLET PO (09:07)
[2020-10-16 14:10] VITALS: BP 146/74; PULSE 99
[2020-10-16] MEDS: Metoprolol Succinate ER 50 MG TAB.ER.24H PO (14:10)
--- NOTE | 2020-10-16 17:08 | HO.PSYCHPN ---
Subjective Subjective Date of Service: 10/16/20 Reason For Visit: psychosis Subjective Notes: Conditional Voluntary Healthcare Proxy: No Guardianship: No Medical Problems Affecting Mental Status: No Interim History: Team reports pt responding to internal stimuli and team being fearful of some of his actions. Some threatening behaviors noted, posturing, attempts to bear hug team, some yelling, refusal of care. Medication Compliance: Yes Side effects from medications: No Attending Groups: No Review of Systems Acute medical concerns: No Medical Review of Systems: unchanged Review of Systems Reports behavioral changes Psychiatric: Reports behavioral changes, Reports difficulty concentrating, Reports auditory hallucinations, Reports irritability, Reports mood swings and Reports paranoia Mental Status Exam Mental Status Exam Patient Appearance: Disheveled Patient Orientation: Person and Place Level of Consciousness: Alert Patient Behavior: Guarded, Talkative and Suspicious Mood Description: Constricted Affect Description: Constricted Patient Cognition Impaired: Yes Ability to Follow Directions: Good Speech Pattern: Spontaneous Speech Memory Description: Remote Impaired and Episodic Impaired Hallucinations: Auditory and Visual Delusions: Paranoid Ideation Perceptual Disturbances: Depersonalization and Derealization Thought Process: Illogical and Distracted Thought Content: positive for Thought Blocking and positive for Tangential Depressive Symptoms: Insomnia, Increased Irritability, Difficulty Sleeping, Loss of Int. in Activity and Difficulty Concentrating Judgement: Poor Diagnostics Vital Signs (24Hr): Vital Signs - 24 hr 10/16/20 14:10 Pulse Rate 99 Blood Pressure 146/74 H Body Mass Index 37.3 Labs Results: 10/09/20 08:00 10/13/20 08:03 Imaging Radiology Impressions: ITS Impressions [facility]UB X-Ray 07/22/20 17:13 IMPRESSION: Moderate volume of stool scattered in colon. No bowel obstruction. Medications Medications Current Medications Generic Name Dose Route Start Last Admin Trade Name Freq PRN Reason Stop Dose Admin Acetaminophen 650 mg 07/23/20 21:13 10/11/20 16:33 Acetaminophen 325 Mg Tablet PO 650 mg Q6H PRN Administration Headache/Pain Mild Scale (1-3) Al Hydroxide/Mg Hydroxide 30 ml 07/23/20 21:13 Magnesium Hydrox/Alum Hydrox 30 Ml Oral.Susp PO Q6H PRN Heartburn/Nausea Aspirin 81 mg 07/25/20 09:00 10/16/20 09:02 Aspirin Enteric Coated 81 Mg Tablet. PO 81 mg DAILY [facility] Administration Atorvastatin Calcium 80 mg 07/23/20 21:00 10/15/20 22:44 Atorvastatin Calcium 80 Mg Tablet PO Not Given BEDTIME [facility] Benztropine Mesylate 1 mg 10/08/20 21:00 10/16/20 09:00 Benztropine Mesylate 1 Mg Tablet PO 1 mg BID [facility] Administration Clozapine 25 mg 10/08/20 09:00 10/16/20 09:01 Clozapine 25 Mg Tablet PO 25 mg DAILY [facility] Administration Enoxaparin Sodium 40 mg 10/07/20 15:00 10/16/20 14:16 Enoxaparin Sodium 40 Mg/0.4 Ml Syringe SUBCUT Not Given Q24H [facility] Ferrous Sulfate 324 mg 09/02/20 09:00 10/16/20 08:59 Ferrous Sulfate 324 Mg Tablet. PO 324 mg DAILY [facility] Administration Finasteride 5 mg 07/23/20 17:00 10/16/20 09:07 Finasteride 5 Mg Tablet PO 5 mg DAILY [facility] Administration Hydroxyzine HCl 25 mg 07/23/20 21:13 08/17/20 03:00 Hydroxyzine Hcl 25 Mg Tablet PO 25 mg BEDTIME PRN Administration Anxiety Loperamide HCl 2 mg 07/24/20 15:43 07/24/20 15:54 Loperamide Hcl 2 Mg Capsule PO 2 mg Q4H PRN Administration Diarrhea Magnesium Hydroxide 30 ml 07/23/20 21:13 Milk Of Magnesia 30 Ml Oral.Susp PO DAILY PRN Constipation Metformin HCl 500 mg 08/14/20 17:00 10/16/20 09:01 Metformin Hcl 500 Mg Tablet PO 500 mg BIDWM [facility] Administration Metoprolol Succinate 50 mg 10/16/20 13:00 10/16/20 14:10 Metoprolol Succinate Er 50 Mg Tab.Er.24h PO 50 mg DAILY [facility] Administration Protocol Multi-Ingred Cream/Lotion/Oil/Oint 1 appl 07/24/20 21:00 10/16/20 14:19 Mineral Oil/Petrolatum,White 106 Gm Tube TOPICAL Not Given BID [facility] Multi-Ingred Cream/Lotion/Oil/Oint 1 appl 10/09/20 21:00 10/16/20 14:19 Mineral Oil/Petrolatum,White 106 Gm Tube TOPICAL Not Given BID [facility] Multivitamins/Minerals 1 tab 09/25/20 13:30 10/16/20 08:58 Multivitamin With Minerals Tablet PO 1 tab DAILY [facility] Administration Patient Own 1 each 08/14/20 10:27 08/14/20 12:06 Medication (Thera PO 1 each Breath Dry Mouth Q4H PRN Administration Lozenge) Dry Mouth Patient Own 1 each 08/14/20 10:30 10/16/20 14:19 Medication (Biotene PO Not Given 15 Ml) BID [facility] Nystatin 1 appl 07/26/20 19:25 10/16/20 14:19 Nystatin Cream 15 Gm Tube TOPICAL Not Given DAILY [facility] Protocol Olanzapine 15 mg 10/06/20 12:18 10/07/20 20:20 Olanzapine 10 Mg Vial IM 15 mg BID PRN Administration if pt ref po zydis rafy fernandez Olanzapine 15 mg 10/06/20 21:00 10/16/20 08:57 Olanzapine Odt 10 Mg Tab.Rapdis TRANSLINGU 15 mg BID [facility] Administration Omeprazole 20 mg 07/24/20 06:30 10/16/20 08:59 Omeprazole 20 Mg Capsule.Dr PO 20 mg DAILY@0630 [facility] Administration Ondansetron HCl 4 mg 08/08/20 09:04 08/08/20 09:27 Ondansetron Odt 4 Mg Tab.Rapdis TRANSLINGU 4 mg Q6H PRN Administration Nausea Saliva Substitute 1 spray 08/12/20 15:06 Dry Mouth [place] 30 Ml [place] MUCOUS MEM Q2H PRN Dry Mouth Tamsulosin HCl 0.4 mg 07/25/20 21:00 10/15/20 22:45 Tamsulosin Hcl 0.4 Mg Capsule PO Not Given BEDTIME [facility] Trazodone HCl 50 mg 07/23/20 21:13 10/15/20 23:25 Trazodone Hcl 50 Mg Tablet PO 50 mg BEDTIME PRN Administration Insomnia Vitamin D 50 mcg 07/23/20 21:00 10/15/20 22:44 Cholecalciferol (Vitamin D3) 25 Mcg Tablet PO Not Given BEDTIME [facility] Allergies Allergies Allergy/AdvReac Type Severity Reaction Status Date / Time No Known Allergies Allergy Verified 07/21/20 16:39 Assessment & Plan Assessment & Plan (1) Schizophrenia, paranoid, subchronic with acute exacerbation: Status: Acute Code(s): F20.0 - Paranoid schizophrenia Assessment and Plan: Prolixin Decanoate 12.5 mg given 09/25/20. Discontinued after this one injection Continue Zydis 15 mg bid. If pt refuses Zyprexa 15 mg bid IM. Clozaril 25 mg daily Assessment and Plan: No changes in medication today, med adherent and tolerating them well. Greater than 50% of the session was spent on counseling and/or coordination of care Reason for contiued inpatient stay Substantial Risk for: harm to self, harm to others, inability to function, rapid decompensation and med/psych decompensation
[2020-10-16 18:00] VITALS: RESP 16
[2020-10-17 08:46] LABS: Neut%MD 64.5 %; Neutrophils Absolute Auto 5.8 X10*3/uL (2.0-8.3)
[2020-10-17] MEDS: metFORMIN HCl 500 MG TABLET PO (09:29)
[2020-10-17] MEDS: Finasteride 5 MG TABLET PO (09:29)
[2020-10-17] MEDS: Omeprazole 20 MG CAPSULE.DR PO (09:29)
[2020-10-17] MEDS: Benztropine Mesylate 1 MG TABLET PO (09:30)
[2020-10-17] MEDS: Ferrous Sulfate 324 MG TABLET.DR PO (09:30)
[2020-10-17] MEDS: cloZAPine 25 MG TABLET PO (09:30)
[2020-10-17] MEDS: Aspirin Enteric Coated 81 MG TABLET.DR PO (09:30)
[2020-10-17] MEDS: OLANZapine 10 MG VIAL 15 MG IM (11:17)
--- NOTE | 2020-10-17 17:20 | P.PNPSI_ITS ---
Subjective Subjective Date of Service: 10/18/20 Reason For Visit: psychosis Subjective Notes: Conditional Voluntary Healthcare Proxy: No Guardianship: No Medical Problems Affecting Mental Status: No Interim History: Meeting with Chad LAMBERT team scheduled for 10/23 2pm by Juan's forensic social worker to discuss future planning. Today, pt is not as aggressive as reported last evening. PRN medications added for this rationale-Olanzapine and Lorazepam. Pt eating, mobile, not as social- responding to internal stimuli. Discussed pt's ongoing needs from milieu and what can be added to increase rehab potential in team with proposed changes presented to team leaders. Medication Compliance: Intermittent Side effects from medications: No Attending Groups: No Review of Systems Acute medical concerns: No Medical Review of Systems: unchanged Mental Status Exam Mental Status Exam Patient Appearance: Disheveled Patient Orientation: Person and Place Level of Consciousness: Alert Patient Behavior: Guarded, Suspicious, Resistive to Care, Avoidant, Distractible, Isolative and Poor Eye Contact Mood Description: Suspicious, Withdrawn and Labile Affect Description: Suspicious, Withdrawn and Flat Patient Cognition Impaired: Yes Ability to Follow Directions: Fair Speech Pattern: Spontaneous Speech, Soft-Spoken and Long Pauses Memory Description: Remote Impaired and Episodic Impaired Hallucinations: Auditory and Visual Delusions: Paranoid Ideation Perceptual Disturbances: Derealization Thought Process: Distracted Thought Content: positive for Thought Blocking Depressive Symptoms: Increased Irritability Judgement: Poor Diagnostics Vital Signs (24Hr): Vital Signs - 24 hr 10/16/20 18:00 Respiratory Rate 16 Body Mass Index 37.3 Labs Results: 10/09/20 08:00 10/13/20 08:03 Labs: Laboratory Results - last 48 hr 10/17/20 08:41 Absolute Neuts (auto) 5.8 Imaging Radiology Impressions: ITS Impressions KUB X-Ray 07/22/20 17:13 IMPRESSION: Moderate volume of stool scattered in colon. No bowel obstruction. Medications Medications Current Medications Generic Name Dose Route Start Last Admin Trade Name Freq PRN Reason Stop Dose Admin Acetaminophen 650 mg 07/23/20 21:13 10/11/20 16:33 Acetaminophen 325 Mg Tablet PO 650 mg Q6H PRN Administration Headache/Pain Mild Scale (1-3) Al Hydroxide/Mg Hydroxide 30 ml 07/23/20 21:13 Magnesium Hydrox/Alum Hydrox 30 Ml Oral.Susp PO Q6H PRN Heartburn/Nausea Aspirin 81 mg 07/25/20 09:00 10/17/20 09:30 Aspirin Enteric Coated 81 Mg Tablet. PO 81 mg DAILY [facility] Administration Atorvastatin Calcium 80 mg 07/23/20 21:00 10/16/20 20:33 Atorvastatin Calcium 80 Mg Tablet PO Not Given BEDTIME [facility] Benztropine Mesylate 1 mg 10/08/20 21:00 10/17/20 09:30 Benztropine Mesylate 1 Mg Tablet PO 1 mg BID [facility] Administration Clozapine 25 mg 10/08/20 09:00 10/17/20 09:30 Clozapine 25 Mg Tablet PO 25 mg DAILY [facility] Administration Enoxaparin Sodium 40 mg 10/07/20 15:00 10/17/20 14:49 Enoxaparin Sodium 40 Mg/0.4 Ml Syringe SUBCUT Not Given Q24H [facility] Ferrous Sulfate 324 mg 09/02/20 09:00 10/17/20 09:30 Ferrous Sulfate 324 Mg Tablet. PO 324 mg DAILY [facility] Administration Finasteride 5 mg 07/23/20 17:00 10/17/20 09:29 Finasteride 5 Mg Tablet PO 5 mg DAILY [facility] Administration Hydroxyzine HCl 25 mg 07/23/20 21:13 08/17/20 03:00 Hydroxyzine Hcl 25 Mg Tablet PO 25 mg BEDTIME PRN Administration Anxiety Loperamide HCl 2 mg 07/24/20 15:43 07/24/20 15:54 Loperamide Hcl 2 Mg Capsule PO 2 mg Q4H PRN Administration Diarrhea Lorazepam 1 mg 10/17/20 17:09 Lorazepam 1 Mg Tablet PO Q4H PRN agitation Magnesium Hydroxide 30 ml 07/23/20 21:13 Milk Of Magnesia 30 Ml Oral.Susp PO DAILY PRN Constipation Metformin HCl 500 mg 08/14/20 17:00 10/17/20 16:18 Metformin Hcl 500 Mg Tablet PO Not Given BIDWM [facility] Metoprolol Succinate 50 mg 10/16/20 13:00 10/17/20 09:46 Metoprolol Succinate Er 50 Mg Tab.Er.24h PO Not Given DAILY [facility] Protocol Multi-Ingred Cream/Lotion/Oil/Oint 1 appl 07/24/20 21:00 10/17/20 10:12 Mineral Oil/Petrolatum,White 106 Gm Tube TOPICAL Not Given BID [facility] Multi-Ingred Cream/Lotion/Oil/Oint 1 appl 10/09/20 21:00 10/17/20 10:13 Mineral Oil/Petrolatum,White 106 Gm Tube TOPICAL Not Given BID [facility] Multivitamins/Minerals 1 tab 09/25/20 13:30 10/17/20 09:29 Multivitamin With Minerals Tablet PO 1 tab DAILY [facility] Administration Patient Own 1 each 08/14/20 10:27 08/14/20 12:06 Medication (Thera PO 1 each Breath Dry Mouth Q4H PRN Administration Lozenge) Dry Mouth Patient Own 1 each 08/14/20 10:30 10/17/20 10:13 Medication (Biotene PO Not Given 15 Ml) BID [facility] Nystatin 1 appl 07/26/20 19:25 10/17/20 10:13 Nystatin Cream 15 Gm Tube TOPICAL Not Given DAILY [facility] Protocol Olanzapine 15 mg 10/06/20 12:18 10/17/20 11:17 Olanzapine 10 Mg Vial IM 15 mg BID PRN Administration if pt ref po zydis per jim Olanzapine 15 mg 10/06/20 21:00 10/17/20 11:17 Olanzapine Odt 10 Mg Tab.Rapdis TRANSLINGU Not Given BID [facility] Olanzapine 5 mg 10/17/20 17:09 Olanzapine 5 Mg Tablet PO BID PRN psychosis, agitation Omeprazole 20 mg 07/24/20 06:30 10/17/20 09:29 Omeprazole 20 Mg Capsule. PO 20 mg DAILY@0630 [facility] Administration Ondansetron HCl 4 mg 08/08/20 09:04 08/08/20 09:27 Ondansetron Odt 4 Mg Tab.Rapdis TRANSLINGU 4 mg Q6H PRN Administration Nausea Saliva Substitute 1 spray 08/12/20 15:06 Dry Mouth [place] 30 Ml [place] MUCOUS MEM Q2H PRN Dry Mouth Tamsulosin HCl 0.4 mg 07/25/20 21:00 10/16/20 20:34 Tamsulosin Hcl 0.4 Mg Capsule PO Not Given BEDTIME [facility] Trazodone HCl 50 mg 07/23/20 21:13 10/15/20 23:25 Trazodone Hcl 50 Mg Tablet PO 50 mg BEDTIME PRN Administration Insomnia Vitamin D 50 mcg 07/23/20 21:00 10/16/20 20:34 Cholecalciferol (Vitamin D3) 25 Mcg Tablet PO Not Given BEDTIME [facility] Allergies Allergies Allergy/AdvReac Type Severity Reaction Status Date / Time No Known Allergies Allergy Verified 07/21/20 16:39 Assessment & Plan Assessment & Plan (1) Schizophrenia, paranoid, subchronic with acute exacerbation: Status: Acute Code(s): F20.0 - Paranoid schizophrenia Assessment and Plan: Prolixin Decanoate 12.5 mg given 09/25/20. Discontinued after this one injection Continue Zydis 15 mg bid. If pt refuses Zyprexa 15 mg bid IM. Olanzapine 5 mg bid prn psychotic agitation Lorazepam 1 mg q 4 hours prn agitation. Clozaril 25 mg daily. Pt does not want to titrate as he believes Clozaril caused side effects which were intolerable. Assessment and Plan: No changes in medication today, med adherent and tolerating them well. Greater than 50% of the session was spent on counseling and/or coordination of care Informed Consent: does not understand Reason for contiued inpatient stay Substantial Risk for: harm to self, harm to others, inability to function and med/psych decompensation
[2020-10-17] MEDS: OLANZapine ODT 10 MG TAB.RAPDIS 15 MG TRANSLINGU (20:33)
[2020-10-18] MEDS: traZODone HCL 50 MG TABLET PO (00:06)
[2020-10-18] MEDS: Omeprazole 20 MG CAPSULE.DR PO (09:31)
[2020-10-18] MEDS: Aspirin Enteric Coated 81 MG TABLET.DR PO (09:31)
[2020-10-18] MEDS: cloZAPine 25 MG TABLET PO (09:31)
[2020-10-18] MEDS: OLANZapine ODT 10 MG TAB.RAPDIS 15 MG TRANSLINGU ×2 (09:32→20:27)
[2020-10-18] MEDS: Ferrous Sulfate 324 MG TABLET.DR PO (09:32)
[2020-10-18] MEDS: metFORMIN HCl 500 MG TABLET PO (09:33)
--- NOTE | 2020-10-18 11:59 | P.PNPSI_ITS ---
Subjective Subjective Date of Service: 10/18/20 Reason For Visit: psychosis Interim History: Patient was seen in rounds today. He has been stable on is doing a little better. He continues to take medications intermittently. He states that he is not having as much auditory hallucinations. Eating and sleeping adequately. No episodes of outbursts. No complaints. No changes were made Review of Systems Review of Systems No changes to his review of system Yes unobtainable due to endotracheal tube, Unobtainable due to mental condition, Unobtainable due to mental status and Other Diagnostics Vital Signs (24Hr): Body Mass Index 37.3 Labs Results: 10/09/20 08:00 10/13/20 08:03 Labs: Laboratory Results - last 48 hr 10/17/20 08:41 Absolute Neuts (auto) 5.8 Imaging Radiology Impressions: ITS Impressions KUB X-Ray 07/22/20 17:13 IMPRESSION: Moderate volume of stool scattered in colon. No bowel obstruction. Medications Medications Current Medications Generic Name Dose Route Start Last Admin Trade Name Freq PRN Reason Stop Dose Admin Acetaminophen 650 mg 07/23/20 21:13 10/11/20 16:33 Acetaminophen 325 Mg Tablet PO 650 mg Q6H PRN Administration Headache/Pain Mild Scale (1-3) Al Hydroxide/Mg Hydroxide 30 ml 07/23/20 21:13 Magnesium Hydrox/Alum Hydrox 30 Ml Oral.Susp PO Q6H PRN Heartburn/Nausea Aspirin 81 mg 07/25/20 09:00 10/18/20 09:31 Aspirin Enteric Coated 81 Mg Tablet. PO 81 mg DAILY [facility] Administration Atorvastatin Calcium 80 mg 07/23/20 21:00 10/17/20 20:48 Atorvastatin Calcium 80 Mg Tablet PO Not Given BEDTIME [facility] Benztropine Mesylate 1 mg 10/08/20 21:00 10/18/20 09:38 Benztropine Mesylate 1 Mg Tablet PO Not Given BID [facility] Clozapine 25 mg 10/08/20 09:00 10/18/20 09:31 Clozapine 25 Mg Tablet PO 25 mg DAILY [facility] Administration Enoxaparin Sodium 40 mg 10/07/20 15:00 10/17/20 14:49 Enoxaparin Sodium 40 Mg/0.4 Ml Syringe SUBCUT Not Given Q24H [facility] Ferrous Sulfate 324 mg 09/02/20 09:00 10/18/20 09:32 Ferrous Sulfate 324 Mg Tablet. PO 324 mg DAILY [facility] Administration Finasteride 5 mg 07/23/20 17:00 10/18/20 09:38 Finasteride 5 Mg Tablet PO Not Given DAILY [facility] Hydroxyzine HCl 25 mg 07/23/20 21:13 08/17/20 03:00 Hydroxyzine Hcl 25 Mg Tablet PO 25 mg BEDTIME PRN Administration Anxiety Loperamide HCl 2 mg 07/24/20 15:43 07/24/20 15:54 Loperamide Hcl 2 Mg Capsule PO 2 mg Q4H PRN Administration Diarrhea Lorazepam 1 mg 10/17/20 17:09 Lorazepam 1 Mg Tablet PO Q4H PRN agitation Magnesium Hydroxide 30 ml 07/23/20 21:13 Milk Of Magnesia 30 Ml Oral.Susp PO DAILY PRN Constipation Metformin HCl 500 mg 08/14/20 17:00 10/18/20 09:33 Metformin Hcl 500 Mg Tablet PO 500 mg BIDWM [facility] Administration Metoprolol Succinate 50 mg 10/16/20 13:00 10/18/20 09:38 Metoprolol Succinate Er 50 Mg Tab.Er.24h PO Not Given DAILY [facility] Protocol Multi-Ingred Cream/Lotion/Oil/Oint 1 appl 07/24/20 21:00 10/17/20 20:49 Mineral Oil/Petrolatum,White 106 Gm Tube TOPICAL Not Given BID [facility] Multi-Ingred Cream/Lotion/Oil/Oint 1 appl 10/09/20 21:00 10/17/20 20:49 Mineral Oil/Petrolatum,White 106 Gm Tube TOPICAL Not Given BID [facility] Multivitamins/Minerals 1 tab 09/25/20 13:30 10/18/20 09:31 Multivitamin With Minerals Tablet PO 1 tab DAILY [facility] Administration Patient Own 1 each 08/14/20 10:27 08/14/20 12:06 Medication (Thera PO 1 each Breath Dry Mouth Q4H PRN Administration Lozenge) Dry Mouth Patient Own 1 each 08/14/20 10:30 10/17/20 20:49 Medication (Biotene PO Not Given 15 Ml) BID [facility] Nystatin 1 appl 07/26/20 19:25 10/17/20 10:13 Nystatin Cream 15 Gm Tube TOPICAL Not Given DAILY [facility] Protocol Olanzapine 15 mg 10/06/20 12:18 10/17/20 11:17 Olanzapine 10 Mg Vial IM 15 mg BID PRN Administration if pt ref po zydis rafy fernandez Olanzapine 15 mg 10/06/20 21:00 10/18/20 09:32 Olanzapine Odt 10 Mg Tab.Rapdis TRANSLINGU 15 mg BID [facility] Administration Olanzapine 5 mg 10/17/20 17:09 Olanzapine 5 Mg Tablet PO BID PRN psychosis, agitation Omeprazole 20 mg 07/24/20 06:30 10/18/20 09:31 Omeprazole 20 Mg Capsule.Dr PO 20 mg DAILY@0630 [facility] Administration Ondansetron HCl 4 mg 08/08/20 09:04 08/08/20 09:27 Ondansetron Odt 4 Mg Tab.Rapdis TRANSLINGU 4 mg Q6H PRN Administration Nausea Saliva Substitute 1 spray 08/12/20 15:06 Dry Mouth [place] 30 Ml [place] MUCOUS MEM Q2H PRN Dry Mouth Tamsulosin HCl 0.4 mg 07/25/20 21:00 10/17/20 20:49 Tamsulosin Hcl 0.4 Mg Capsule PO Not Given BEDTIME [facility] Trazodone HCl 50 mg 07/23/20 21:13 10/18/20 00:06 Trazodone Hcl 50 Mg Tablet PO 50 mg BEDTIME PRN Administration Insomnia Vitamin D 50 mcg 07/23/20 21:00 10/17/20 20:49 Cholecalciferol (Vitamin D3) 25 Mcg Tablet PO Not Given BEDTIME [facility] Allergies Allergies Allergy/AdvReac Type Severity Reaction Status Date / Time No Known Allergies Allergy Verified 07/21/20 16:39 Assessment & Plan Assessment & Plan (1) Schizophrenia, paranoid, subchronic with acute exacerbation: Status: Acute Code(s): F20.0 - Paranoid schizophrenia Assessment and Plan: Prolixin Decanoate 12.5 mg given 09/25/20. Discontinued after this one injection Continue Zydis 15 mg bid. If pt refuses Zyprexa 15 mg bid IM. Olanzapine 5 mg bid prn psychotic agitation Lorazepam 1 mg q 4 hours prn agitation. Clozaril 25 mg daily. Pt does not want to titrate as he believes Clozaril caused side effects which were intolerable. Continue current regimen and plans Assessment and Plan: No changes in medication today, med adherent and tolerating them well. Greater than 50% of the session was spent on counseling and/or coordination of care Reason for contiued inpatient stay Substantial Risk for: med/psych decompensation
[2020-10-18] MEDS: Mineral Oil/Petrolatum,White 106 GM Tube 1 APPL TOPICAL (12:19)
[2020-10-19] MEDS: Mineral Oil/Petrolatum,White 106 GM Tube 1 APPL TOPICAL (09:14)
[2020-10-19] MEDS: Aspirin Enteric Coated 81 MG TABLET.DR PO (09:15)
[2020-10-19] MEDS: Ferrous Sulfate 324 MG TABLET.DR PO (09:15)
[2020-10-19] MEDS: Finasteride 5 MG TABLET PO (09:15)
[2020-10-19] MEDS: Omeprazole 20 MG CAPSULE.DR PO (09:15)
[2020-10-19] MEDS: metFORMIN HCl 500 MG TABLET PO (09:16)
[2020-10-19] MEDS: OLANZapine ODT 10 MG TAB.RAPDIS 15 MG TRANSLINGU ×2 (09:16→20:47)
--- NOTE | 2020-10-19 09:16 | P.PNPSI_ITS ---
Subjective Subjective Date of Service: 10/19/20 Reason For Visit: psychosis Subjective Notes: Conditional Voluntary Interim History: patient was seen in rounds today. He continues to be doing better and has been more compliant with his medications though still missing some doses. He has had no episodes of yelling or anger. Eating and sleeping adequately. No complaints. No changes were made Medication Compliance: Intermittent Side effects from medications: No Mental Status Exam Mental Status Exam Narrative: in today's visit he is alert, oriented and pleasant. Normal speech. Better eye contact. Affect is appropriate and constricted. He still does have auditory hallucinations but they are less. No SI. No aggression. Cognitively at baseline. Diagnostics Vital Signs (24Hr): Body Mass Index 37.3 Labs Results: 10/09/20 08:00 10/13/20 08:03 Imaging Radiology Impressions: ITS Impressions KUB X-Ray 07/22/20 17:13 IMPRESSION: Moderate volume of stool scattered in colon. No bowel obstruction. Medications Medications Current Medications Generic Name Dose Route Start Last Admin Trade Name Freq PRN Reason Stop Dose Admin Acetaminophen 650 mg 07/23/20 21:13 10/11/20 16:33 Acetaminophen 325 Mg Tablet PO 650 mg Q6H PRN Administration Headache/Pain Mild Scale (1-3) Al Hydroxide/Mg Hydroxide 30 ml 07/23/20 21:13 Magnesium Hydrox/Alum Hydrox 30 Ml Oral.Susp PO Q6H PRN Heartburn/Nausea Aspirin 81 mg 07/25/20 09:00 10/18/20 09:31 Aspirin Enteric Coated 81 Mg Tablet.Dr EDWARDS 81 mg DAILY AMBR[facility]IO Administration Atorvastatin Calcium 80 mg 07/23/20 21:00 10/18/20 20:38 Atorvastatin Calcium 80 Mg Tablet PO Not Given BEDTIME [facility] Benztropine Mesylate 1 mg 10/08/20 21:00 10/18/20 20:38 Benztropine Mesylate 1 Mg Tablet PO Not Given BID [facility] Clozapine 25 mg 10/08/20 09:00 10/18/20 09:31 Clozapine 25 Mg Tablet PO 25 mg DAILY [facility] Administration Enoxaparin Sodium 40 mg 10/07/20 15:00 10/18/20 14:08 Enoxaparin Sodium 40 Mg/0.4 Ml Syringe SUBCUT Not Given Q24H [facility] Ferrous Sulfate 324 mg 09/02/20 09:00 10/18/20 09:32 Ferrous Sulfate 324 Mg Tablet.Dr PO 324 mg DAILY [facility] Administration Finasteride 5 mg 07/23/20 17:00 10/18/20 09:38 Finasteride 5 Mg Tablet PO Not Given DAILY [facility] Hydroxyzine HCl 25 mg 07/23/20 21:13 08/17/20 03:00 Hydroxyzine Hcl 25 Mg Tablet PO 25 mg BEDTIME PRN Administration Anxiety Loperamide HCl 2 mg 07/24/20 15:43 07/24/20 15:54 Loperamide Hcl 2 Mg Capsule PO 2 mg Q4H PRN Administration Diarrhea Lorazepam 1 mg 10/17/20 17:09 Lorazepam 1 Mg Tablet PO Q4H PRN agitation Magnesium Hydroxide 30 ml 07/23/20 21:13 Milk Of Magnesia 30 Ml Oral.Susp PO DAILY PRN Constipation Metformin HCl 500 mg 08/14/20 17:00 10/18/20 16:27 Metformin Hcl 500 Mg Tablet PO Not Given BIDWM [facility] Metoprolol Succinate 50 mg 10/16/20 13:00 10/18/20 09:38 Metoprolol Succinate Er 50 Mg Tab.Er.24h PO Not Given DAILY [facility] Protocol Multi-Ingred Cream/Lotion/Oil/Oint 1 appl 07/24/20 21:00 10/18/20 20:38 Mineral Oil/Petrolatum,White 106 Gm Tube TOPICAL Not Given BID [facility] Multi-Ingred Cream/Lotion/Oil/Oint 1 appl 10/09/20 21:00 10/18/20 20:38 Mineral Oil/Petrolatum,White 106 Gm Tube TOPICAL Not Given BID [facility] Multivitamins/Minerals 1 tab 09/25/20 13:30 10/18/20 09:31 Multivitamin With Minerals Tablet PO 1 tab DAILY [facility] Administration Patient Own 1 each 08/14/20 10:27 08/14/20 12:06 Medication (Thera PO 1 each Breath Dry Mouth Q4H PRN Administration Lozenge) Dry Mouth Patient Own 1 each 08/14/20 10:30 10/18/20 20:39 Medication (Biotene PO Not Given 15 Ml) BID [facility] Nystatin 1 appl 07/26/20 19:25 10/18/20 12:17 Nystatin Cream 15 Gm Tube TOPICAL Not Given DAILY [facility] Protocol Olanzapine 15 mg 10/06/20 12:18 10/17/20 11:17 Olanzapine 10 Mg Vial IM 15 mg BID PRN Administration if pt ref po zydis per fernandez Olanzapine 15 mg 10/06/20 21:00 10/18/20 20:27 Olanzapine Odt 10 Mg Tab.Rapdis TRANSLINGU 15 mg BID [facility] Administration Olanzapine 5 mg 10/17/20 17:09 Olanzapine 5 Mg Tablet PO BID PRN psychosis, agitation Omeprazole 20 mg 07/24/20 06:30 10/18/20 09:31 Omeprazole 20 Mg Capsule.Dr PO 20 mg DAILY@0630 [facility] Administration Ondansetron HCl 4 mg 08/08/20 09:04 08/08/20 09:27 Ondansetron Odt 4 Mg Tab.Rapdis TRANSLINGU 4 mg Q6H PRN Administration Nausea Saliva Substitute 1 spray 08/12/20 15:06 Dry Mouth [place] 30 Ml [place] MUCOUS MEM Q2H PRN Dry Mouth Tamsulosin HCl 0.4 mg 07/25/20 21:00 10/18/20 20:39 Tamsulosin Hcl 0.4 Mg Capsule PO Not Given BEDTIME [facility] Trazodone HCl 50 mg 07/23/20 21:13 10/18/20 00:06 Trazodone Hcl 50 Mg Tablet PO 50 mg BEDTIME PRN Administration Insomnia Vitamin D 50 mcg 07/23/20 21:00 10/18/20 20:38 Cholecalciferol (Vitamin D3) 25 Mcg Tablet PO Not Given BEDTIME [facility] Allergies Allergies Allergy/AdvReac Type Severity Reaction Status Date / Time No Known Allergies Allergy Verified 07/21/20 16:39 Assessment & Plan Assessment & Plan (1) Schizophrenia, paranoid, subchronic with acute exacerbation: Status: Acute Code(s): F20.0 - Paranoid schizophrenia Assessment and Plan: Prolixin Decanoate 12.5 mg given 09/25/20. Discontinued after this one injection Continue Zydis 15 mg bid. If pt refuses Zyprexa 15 mg bid IM. Olanzapine 5 mg bid prn psychotic agitation Lorazepam 1 mg q 4 hours prn agitation. Clozaril 25 mg daily. Pt does not want to titrate as he believes Clozaril caused side effects which were intolerable. Continue current regimen and plans Assessment and Plan: No changes in medication today, med adherent and tolerating them well. Greater than 50% of the session was spent on counseling and/or coordination of care Reason for contiued inpatient stay Substantial Risk for: med/psych decompensation
[2020-10-19] MEDS: cloZAPine 25 MG TABLET PO (09:17)
[2020-10-19] MEDS: Benztropine Mesylate 1 MG TABLET PO (09:17)
[2020-10-19] MEDS: Acetaminophen 325 MG TABLET 650 MG PO (10:49)
[2020-10-20] MEDS: OLANZapine ODT 10 MG TAB.RAPDIS 15 MG TRANSLINGU ×2 (09:12→21:33)
[2020-10-20] MEDS: cloZAPine 25 MG TABLET PO (09:13)
[2020-10-20] MEDS: Ferrous Sulfate 324 MG TABLET.DR PO (09:13)
[2020-10-20] MEDS: metFORMIN HCl 500 MG TABLET PO ×2 (09:13→18:02)
[2020-10-20] MEDS: Benztropine Mesylate 1 MG TABLET PO (09:13)
[2020-10-20] MEDS: Aspirin Enteric Coated 81 MG TABLET.DR PO (09:14)
[2020-10-20] MEDS: Finasteride 5 MG TABLET PO (09:14)
[2020-10-20] MEDS: Omeprazole 20 MG CAPSULE.DR PO (09:14)
[2020-10-20] MEDS: Mineral Oil/Petrolatum,White 106 GM Tube 1 APPL TOPICAL (09:28)
--- NOTE | 2020-10-20 16:53 | HO.PSYCHPN ---
Subjective Subjective Date of Service: 10/20/20 Reason For Visit: psychosis Subjective Notes: Conditional Voluntary Healthcare Proxy: No Guardianship: Yes (calderon Billings) Medical Problems Affecting Mental Status: No Interim History: Awake, alert, responsive. No outbursts or episodes over the weekend per team. Poor sleep last night. Accepting of medications. Responsive, smiles, states he feels well, however continues to respond to internal stimuli and does report depressive symptoms to team. Team meeting 10/23/20 2pm to discuss discharge planning. Appears with some improvement today. Medication Compliance: Yes Side effects from medications: No Attending Groups: No Review of Systems Acute medical concerns: No Medical Review of Systems: unchanged Review of Systems Reports behavioral changes and Reports confusion Psychiatric: Reports abnormal sleep pattern, Reports anxiety, Reports behavioral changes, Reports change in appetite, Reports confusion, Reports difficulty concentrating, Reports auditory hallucinations, Reports mood swings, Reports paranoia and Reports visual hallucinations Mental Status Exam Mental Status Exam Patient Appearance: Appropriate Patient Orientation: Person and Place Level of Consciousness: Alert Patient Behavior: Guarded, Talkative, Suspicious, Anxious, Distractible and Good Eye Contact Mood Description: Withdrawn Affect Description: Withdrawn Patient Cognition Impaired: Yes Ability to Follow Directions: Good Speech Pattern: Spontaneous Speech and Soft-Spoken Memory Description: Remote Impaired and Episodic Impaired Hallucinations: Auditory and Visual Delusions: Paranoid Ideation and Present Perceptual Disturbances: Depersonalization and Derealization Thought Process: Distracted and Rumination Thought Content: positive for [place], positive for Perseveration and positive for Thought Blocking Depressive Symptoms: Increased Anxiety and Difficulty Concentrating Judgement: Poor Diagnostics Vital Signs (24Hr): Body Mass Index 37.3 Labs Results: 10/09/20 08:00 10/13/20 08:03 Imaging Radiology Impressions: ITS Impressions KUB X-Ray 07/22/20 17:13 IMPRESSION: Moderate volume of stool scattered in colon. No bowel obstruction. Medications Medications Current Medications Generic Name Dose Route Start Last Admin Trade Name Freq PRN Reason Stop Dose Admin Acetaminophen 650 mg 07/23/20 21:13 10/19/20 10:49 Acetaminophen 325 Mg Tablet PO 650 mg Q6H PRN Administration Headache/Pain Mild Scale (1-3) Al Hydroxide/Mg Hydroxide 30 ml 07/23/20 21:13 Magnesium Hydrox/Alum Hydrox 30 Ml Oral.Susp PO Q6H PRN Heartburn/Nausea Aspirin 81 mg 07/25/20 09:00 10/20/20 09:14 Aspirin Enteric Coated 81 Mg Tablet. PO 81 mg DAILY [facility] Administration Atorvastatin Calcium 80 mg 07/23/20 21:00 10/19/20 21:00 Atorvastatin Calcium 80 Mg Tablet PO Not Given BEDTIME [facility] Benztropine Mesylate 1 mg 10/08/20 21:00 10/20/20 09:13 Benztropine Mesylate 1 Mg Tablet PO 1 mg BID [facility] Administration Clozapine 25 mg 10/08/20 09:00 10/20/20 09:13 Clozapine 25 Mg Tablet PO 25 mg DAILY [facility] Administration Enoxaparin Sodium 40 mg 10/07/20 15:00 10/20/20 15:16 Enoxaparin Sodium 40 Mg/0.4 Ml Syringe SUBCUT Not Given Q24H [facility] Ferrous Sulfate 324 mg 09/02/20 09:00 10/20/20 09:13 Ferrous Sulfate 324 Mg Tablet. PO 324 mg DAILY [facility] Administration Finasteride 5 mg 07/23/20 17:00 10/20/20 09:14 Finasteride 5 Mg Tablet PO 5 mg DAILY [facility] Administration Hydroxyzine HCl 25 mg 07/23/20 21:13 08/17/20 03:00 Hydroxyzine Hcl 25 Mg Tablet PO 25 mg BEDTIME PRN Administration Anxiety Loperamide HCl 2 mg 07/24/20 15:43 07/24/20 15:54 Loperamide Hcl 2 Mg Capsule PO 2 mg Q4H PRN Administration Diarrhea Lorazepam 1 mg 10/17/20 17:09 Lorazepam 1 Mg Tablet PO Q4H PRN agitation Magnesium Hydroxide 30 ml 07/23/20 21:13 Milk Of Magnesia 30 Ml Oral.Susp PO DAILY PRN Constipation Metformin HCl 500 mg 08/14/20 17:00 10/20/20 09:13 Metformin Hcl 500 Mg Tablet PO 500 mg BIDWM [facility] Administration Metoprolol Succinate 50 mg 10/16/20 13:00 10/20/20 09:28 Metoprolol Succinate Er 50 Mg Tab.Er.24h PO Not Given DAILY [facility] Protocol Multi-Ingred Cream/Lotion/Oil/Oint 1 appl 07/24/20 21:00 10/20/20 09:29 Mineral Oil/Petrolatum,White 106 Gm Tube TOPICAL Not Given BID [facility] Multi-Ingred Cream/Lotion/Oil/Oint 1 appl 10/09/20 21:00 10/20/20 09:28 Mineral Oil/Petrolatum,White 106 Gm Tube TOPICAL 1 appl BID [facility] Administration Multivitamins/Minerals 1 tab 09/25/20 13:30 10/20/20 09:13 Multivitamin With Minerals Tablet PO 1 tab DAILY [facility] Administration Patient Own 1 each 08/14/20 10:27 08/14/20 12:06 Medication (Thera PO 1 each Breath Dry Mouth Q4H PRN Administration Lozenge) Dry Mouth Patient Own 1 each 08/14/20 10:30 10/20/20 09:29 Medication (Biotene PO Not Given 15 Ml) BID [facility] Nystatin 1 appl 07/26/20 19:25 10/20/20 09:29 Nystatin Cream 15 Gm Tube TOPICAL Not Given DAILY [facility] Protocol Olanzapine 15 mg 10/06/20 12:18 10/17/20 11:17 Olanzapine 10 Mg Vial IM 15 mg BID PRN Administration if pt ref po zydis per jim Olanzapine 15 mg 10/06/20 21:00 10/20/20 09:12 Olanzapine Odt 10 Mg Tab.Rapdis TRANSLINGU 15 mg BID [facility] Administration Olanzapine 5 mg 10/17/20 17:09 Olanzapine 5 Mg Tablet PO BID PRN psychosis, agitation Omeprazole 20 mg 07/24/20 06:30 10/20/20 09:14 Omeprazole 20 Mg Capsule. PO 20 mg DAILY@0630 [facility] Administration Ondansetron HCl 4 mg 08/08/20 09:04 08/08/20 09:27 Ondansetron Odt 4 Mg Tab.Rapdis TRANSLINGU 4 mg Q6H PRN Administration Nausea Saliva Substitute 1 spray 08/12/20 15:06 Dry Mouth [place] 30 Ml [place] MUCOUS MEM Q2H PRN Dry Mouth Tamsulosin HCl 0.4 mg 07/25/20 21:00 10/19/20 21:01 Tamsulosin Hcl 0.4 Mg Capsule PO Not Given BEDTIME [facility] Trazodone HCl 50 mg 07/23/20 21:13 10/18/20 00:06 Trazodone Hcl 50 Mg Tablet PO 50 mg BEDTIME PRN Administration Insomnia Vitamin D 50 mcg 07/23/20 21:00 10/19/20 21:01 Cholecalciferol (Vitamin D3) 25 Mcg Tablet PO Not Given BEDTIME [facility] Allergies Allergies Allergy/AdvReac Type Severity Reaction Status Date / Time No Known Allergies Allergy Verified 07/21/20 16:39 Assessment & Plan Assessment & Plan (1) Schizophrenia, paranoid, subchronic with acute exacerbation: Status: Acute Code(s): F20.0 - Paranoid schizophrenia Assessment and Plan: Prolixin Decanoate 12.5 mg given 09/25/20. Discontinued after this one injection Continue Zydis 15 mg bid. If pt refuses Zyprexa 15 mg bid IM. Olanzapine 5 mg bid prn psychotic agitation Lorazepam 1 mg q 4 hours prn agitation. Clozaril 25 mg daily. Pt does not want to titrate as he believes Clozaril caused side effects which were intolerable. Meeting with out patient residential team on 10/23/20. Assessment and Plan: No changes in medication today, med adherent and tolerating them well. Greater than 50% of the session was spent on counseling and/or coordination of care Informed Consent: does not understand Reason for contiued inpatient stay Substantial Risk for: harm to self, harm to others, inability to function, rapid decompensation and med/psych decompensation
[2020-10-21] MEDS: Ferrous Sulfate 324 MG TABLET.DR PO (08:26)
[2020-10-21] MEDS: Aspirin Enteric Coated 81 MG TABLET.DR PO (08:26)
[2020-10-21] MEDS: Benztropine Mesylate 1 MG TABLET PO (08:26)
[2020-10-21] MEDS: metFORMIN HCl 500 MG TABLET PO ×2 (08:26→18:03)
[2020-10-21] MEDS: cloZAPine 25 MG TABLET PO (08:27)
[2020-10-21] MEDS: OLANZapine ODT 10 MG TAB.RAPDIS 15 MG TRANSLINGU ×2 (08:27→20:05)
[2020-10-21] MEDS: Finasteride 5 MG TABLET PO (08:27)
[2020-10-21] MEDS: Mineral Oil/Petrolatum,White 106 GM Tube 1 APPL TOPICAL (08:31)
--- NOTE | 2020-10-21 12:57 | P.PNPSI_ITS ---
Subjective Subjective Date of Service: 10/21/20 Reason For Visit: psychosis Subjective Notes: Conditional Voluntary Guardianship: Yes ([facility]) Medical Problems Affecting Mental Status: No Interim History: Pt talking with team about sx of depression. Visable in milieu- appetite and sleep are improving. Medication Compliance: Yes Side effects from medications: No Attending Groups: No Review of Systems Acute medical concerns: No Medical Review of Systems: unchanged Review of Systems Psychiatric: Reports auditory hallucinations, Reports paranoia and Reports visual hallucinations Mental Status Exam Mental Status Exam Patient Appearance: Appropriate Patient Orientation: Person and Place Level of Consciousness: Alert Patient Behavior: Guarded and Suspicious Mood Description: Suspicious and Withdrawn Affect Description: Suspicious and Withdrawn Patient Cognition Impaired: Yes Ability to Follow Directions: Good Speech Pattern: Spontaneous Speech Memory Description: Remote Impaired and Episodic Impaired Hallucinations: Auditory and Visual Thought Process: Distracted Thought Content: positive for Thought Blocking Depressive Symptoms: Difficulty Sleeping and Changes in Appetite Judgement: Poor (remains on one to one) Diagnostics Vital Signs (24Hr): Body Mass Index 37.3 Labs Results: 10/09/20 08:00 10/13/20 08:03 Imaging Radiology Impressions: ITS Impressions KUB X-Ray 07/22/20 17:13 IMPRESSION: Moderate volume of stool scattered in colon. No bowel obstruction. Medications Medications Current Medications Generic Name Dose Route Start Last Admin Trade Name [place] PRN Reason Stop Dose Admin Acetaminophen 650 mg 07/23/20 21:13 10/19/20 10:49 Acetaminophen 325 Mg Tablet PO 650 mg Q6H PRN Administration Headache/Pain Mild Scale (1-3) Al Hydroxide/Mg Hydroxide 30 ml 07/23/20 21:13 Magnesium Hydrox/Alum Hydrox 30 Ml Oral.Susp PO Q6H PRN Heartburn/Nausea Aspirin 81 mg 07/25/20 09:00 10/21/20 08:26 Aspirin Enteric Coated 81 Mg Tablet. PO 81 mg DAILY AMBROCIO Administration Atorvastatin Calcium 80 mg 07/23/20 21:00 10/20/20 21:34 Atorvastatin Calcium 80 Mg Tablet PO Not Given BEDTIME AMBROCIO Benztropine Mesylate 1 mg 10/08/20 21:00 10/21/20 08:26 Benztropine Mesylate 1 Mg Tablet PO 1 mg BID AMBROCIO Administration Clozapine 25 mg 10/08/20 09:00 10/21/20 08:27 Clozapine 25 Mg Tablet PO 25 mg DAILY AMBROCIO Administration Enoxaparin Sodium 40 mg 10/07/20 15:00 10/20/20 15:16 Enoxaparin Sodium 40 Mg/0.4 Ml Syringe SUBCUT Not Given Q24H [facility] Ferrous Sulfate 324 mg 09/02/20 09:00 10/21/20 08:26 Ferrous Sulfate 324 Mg Tablet. PO 324 mg DAILY AMBROCIO Administration Finasteride 5 mg 07/23/20 17:00 10/21/20 08:27 Finasteride 5 Mg Tablet PO 5 mg DAILY AMBR[facility]IO Administration Hydroxyzine HCl 25 mg 07/23/20 21:13 08/17/20 03:00 Hydroxyzine Hcl 25 Mg Tablet PO 25 mg BEDTIME PRN Administration Anxiety Loperamide HCl 2 mg 07/24/20 15:43 07/24/20 15:54 Loperamide Hcl 2 Mg Capsule PO 2 mg Q4H PRN Administration Diarrhea Lorazepam 1 mg 10/17/20 17:09 Lorazepam 1 Mg Tablet PO Q4H PRN agitation Magnesium Hydroxide 30 ml 07/23/20 21:13 Milk Of Magnesia 30 Ml Oral.Susp PO DAILY PRN Constipation Metformin HCl 500 mg 08/14/20 17:00 10/21/20 08:26 Metformin Hcl 500 Mg Tablet PO 500 mg BIDWM AMBROCIO Administration Metoprolol Succinate 50 mg 10/16/20 13:00 10/21/20 08:32 Metoprolol Succinate Er 50 Mg Tab.Er.24h PO Not Given DAILY [facility] Protocol Multi-Ingred Cream/Lotion/Oil/Oint 1 appl 07/24/20 21:00 10/21/20 08:32 Mineral Oil/Petrolatum,White 106 Gm Tube TOPICAL Not Given BID AMBROCIO Multi-Ingred Cream/Lotion/Oil/Oint 1 appl 10/09/20 21:00 10/21/20 08:31 Mineral Oil/Petrolatum,White 106 Gm Tube TOPICAL 1 appl BID AMBROCIO Administration Multivitamins/Minerals 1 tab 09/25/20 13:30 10/21/20 08:26 Multivitamin With Minerals Tablet PO 1 tab DAILY AMBROCIO Administration Patient Own 1 each 08/14/20 10:27 08/14/20 12:06 Medication (Thera PO 1 each Breath Dry Mouth Q4H PRN Administration Lozenge) Dry Mouth Patient Own 1 each 08/14/20 10:30 10/21/20 08:32 Medication (Biotene PO Not Given 15 Ml) BID [facility] Nystatin 1 appl 07/26/20 19:25 10/21/20 08:32 Nystatin Cream 15 Gm Tube TOPICAL Not Given DAILY [facility] Protocol Olanzapine 15 mg 10/06/20 12:18 10/17/20 11:17 Olanzapine 10 Mg Vial IM 15 mg BID PRN Administration if pt ref po zydis per jim Olanzapine 15 mg 10/06/20 21:00 10/21/20 08:27 Olanzapine Odt 10 Mg Tab.Rapdis TRANSLINGU 15 mg BID AMBROCIO Administration Olanzapine 5 mg 10/17/20 17:09 Olanzapine 5 Mg Tablet PO BID PRN psychosis, agitation Omeprazole 20 mg 07/24/20 06:30 10/21/20 06:45 Omeprazole 20 Mg Capsule.Dr PO Not Given DAILY@0630 [facility] Ondansetron HCl 4 mg 08/08/20 09:04 08/08/20 09:27 Ondansetron Odt 4 Mg Tab.Rapdis TRANSLINGU 4 mg Q6H PRN Administration Nausea Saliva Substitute 1 spray 08/12/20 15:06 Dry Mouth [place] 30 Ml [place] MUCOUS MEM Q2H PRN Dry Mouth Tamsulosin HCl 0.4 mg 07/25/20 21:00 10/20/20 21:35 Tamsulosin Hcl 0.4 Mg Capsule PO Not Given BEDTIME [facility] Trazodone HCl 50 mg 07/23/20 21:13 10/18/20 00:06 Trazodone Hcl 50 Mg Tablet PO 50 mg BEDTIME PRN Administration Insomnia Vitamin D 50 mcg 07/23/20 21:00 10/20/20 21:35 Cholecalciferol (Vitamin D3) 25 Mcg Tablet PO Not Given BEDTIME [facility] Allergies Allergies Allergy/AdvReac Type Severity Reaction Status Date / Time No Known Allergies Allergy Verified 07/21/20 16:39 Assessment & Plan Assessment & Plan (1) Schizophrenia, paranoid, subchronic with acute exacerbation: Status: Acute Code(s): F20.0 - Paranoid schizophrenia Assessment and Plan: Prolixin Decanoate 12.5 mg given 09/25/20. Discontinued after this one injection Continue Zydis 15 mg bid. If pt refuses Zyprexa 15 mg bid IM. Olanzapine 5 mg bid prn psychotic agitation Lorazepam 1 mg q 4 hours prn agitation. Clozaril 25 mg daily. Pt does not want to titrate as he believes Clozaril caused side effects which were intolerable. Meeting with out patient residential team on 10/23/20. Assessment and Plan: No changes in medication today, med adherent and tolerating them well. Greater than 50% of the session was spent on counseling and/or coordination of care Reason for contiued inpatient stay Substantial Risk for: harm to self, harm to others, inability to function and rapid decompensation
[2020-10-21] MEDS: Cholecalciferol (Vitamin D3) 25 MCG TABLET 50 MCG PO (20:05)
[2020-10-22] MEDS: Acetaminophen 325 MG TABLET 650 MG PO (00:22)
[2020-10-22] MEDS: LORazepam 1 MG TABLET PO (03:41)
[2020-10-22] MEDS: Aspirin Enteric Coated 81 MG TABLET.DR PO (09:25)
[2020-10-22] MEDS: Omeprazole 20 MG CAPSULE.DR PO (09:25)
[2020-10-22] MEDS: Finasteride 5 MG TABLET PO (09:25)
[2020-10-22] MEDS: Benztropine Mesylate 1 MG TABLET PO (09:25)
[2020-10-22] MEDS: metFORMIN HCl 500 MG TABLET PO ×2 (09:25→16:43)
[2020-10-22] MEDS: OLANZapine ODT 10 MG TAB.RAPDIS 15 MG TRANSLINGU ×2 (09:25→20:21)
[2020-10-22] MEDS: cloZAPine 25 MG TABLET PO (09:26)
[2020-10-22] MEDS: Ferrous Sulfate 324 MG TABLET.DR PO (09:26)
[2020-10-22] MEDS: Mineral Oil/Petrolatum,White 106 GM Tube 1 APPL TOPICAL ×2 (09:30→09:31)
--- NOTE | 2020-10-22 12:30 | HO.PSYCHPN ---
Subjective Subjective Date of Service: 10/22/20 Reason For Visit: psychosis Subjective Notes: Conditional Voluntary Healthcare Proxy: No Guardianship: No Medical Problems Affecting Mental Status: No Interim History: Team reports pt reported auditory perceptual alterations to harm others with no intent. Accepting Olanzapine, Clozaril, Ferrous Sulfate. Approached about team meeting on 10/23 with out pt providers-pt unsure of what he wants to do, unable to provide an answer, does report he is thinking about discharge and what he would like for himself after discharge. Medication Compliance: Yes Side effects from medications: No Attending Groups: No Review of Systems Acute medical concerns: No Medical Review of Systems: unchanged Review of Systems Reports behavioral changes, Reports confusion and Reports memory loss Psychiatric: Reports abnormal sleep pattern, Reports behavioral changes, Reports change in appetite, Reports confusion, Reports depression, Reports difficulty concentrating, Reports auditory hallucinations, Reports irritability, Reports anhedonia, Reports memory loss, Reports mood swings, Reports paranoia, Reports visual hallucinations and Reports homicidal ideation (voices to harm-no intent) Mental Status Exam Mental Status Exam Patient Appearance: Appropriate Patient Orientation: Person and Place Level of Consciousness: Alert Patient Behavior: Guarded, Talkative, Suspicious, Avoidant, Isolative and Poor Eye Contact Mood Description: Suspicious and Withdrawn Affect Description: Constricted Patient Cognition Impaired: No Ability to Follow Directions: Good Speech Pattern: Spontaneous Speech, Soft-Spoken, Delayed and Long Pauses Memory Description: Remote Impaired and Episodic Impaired Hallucinations: Auditory and Visual Delusions: Paranoid Ideation and Present Perceptual Disturbances: Depersonalization and Derealization Thought Process: Distracted and Rumination Thought Content: positive for [place], positive for Perseveration, positive for Thought Blocking and positive for Homicidal Ideation (voices to harm others-no intent) Depressive Symptoms: Difficulty Sleeping, Changes in Appetite, Loss of Energy and Difficulty Concentrating Judgement: Poor Diagnostics Vital Signs (24Hr): Body Mass Index 37.3 Labs Results: 10/09/20 08:00 10/23/20 08:18 Imaging Radiology Impressions: ITS Impressions KUB X-Ray 07/22/20 17:13 IMPRESSION: Moderate volume of stool scattered in colon. No bowel obstruction. Medications Medications Current Medications Generic Name Dose Route Start Last Admin Trade Name Freq PRN Reason Stop Dose Admin Acetaminophen 650 mg 07/23/20 21:13 10/22/20 00:22 Acetaminophen 325 Mg Tablet PO 650 mg Q6H PRN Administration Headache/Pain Mild Scale (1-3) Al Hydroxide/Mg Hydroxide 30 ml 07/23/20 21:13 Magnesium Hydrox/Alum Hydrox 30 Ml Oral.Susp PO Q6H PRN Heartburn/Nausea Aspirin 81 mg 07/25/20 09:00 10/22/20 09:25 Aspirin Enteric Coated 81 Mg Tablet. PO 81 mg DAILY AMBROCIO Administration Atorvastatin Calcium 80 mg 07/23/20 21:00 10/21/20 20:26 Atorvastatin Calcium 80 Mg Tablet PO Not Given BEDTIME AM[facility] Benztropine Mesylate 1 mg 10/08/20 21:00 10/22/20 09:25 Benztropine Mesylate 1 Mg Tablet PO 1 mg BID AMBROCIO Administration Clozapine 25 mg 10/08/20 09:00 10/22/20 09:26 Clozapine 25 Mg Tablet PO 25 mg DAILY [facility] Administration Enoxaparin Sodium 40 mg 10/07/20 15:00 10/21/20 14:39 Enoxaparin Sodium 40 Mg/0.4 Ml Syringe SUBCUT Not Given Q24H [facility] Ferrous Sulfate 324 mg 09/02/20 09:00 10/22/20 09:26 Ferrous Sulfate 324 Mg Tablet. PO 324 mg DAILY AMBROCIO Administration Finasteride 5 mg 07/23/20 17:00 10/22/20 09:25 Finasteride 5 Mg Tablet PO 5 mg DAILY AM[facility]IO Administration Hydroxyzine HCl 25 mg 07/23/20 21:13 08/17/20 03:00 Hydroxyzine Hcl 25 Mg Tablet PO 25 mg BEDTIME PRN Administration Anxiety Loperamide HCl 2 mg 07/24/20 15:43 07/24/20 15:54 Loperamide Hcl 2 Mg Capsule PO 2 mg Q4H PRN Administration Diarrhea Lorazepam 1 mg 10/17/20 17:09 10/22/20 03:41 Lorazepam 1 Mg Tablet PO 1 mg Q4H PRN Administration agitation Magnesium Hydroxide 30 ml 07/23/20 21:13 Milk Of Magnesia 30 Ml Oral.Susp PO DAILY PRN Constipation Metformin HCl 500 mg 08/14/20 17:00 10/22/20 09:25 Metformin Hcl 500 Mg Tablet PO 500 mg BIDWM AMBROCIO Administration Metoprolol Succinate 50 mg 10/16/20 13:00 10/22/20 09:26 Metoprolol Succinate Er 50 Mg Tab.Er.24h PO Not Given DAILY [facility] Protocol Multi-Ingred Cream/Lotion/Oil/Oint 1 appl 07/24/20 21:00 10/22/20 09:31 Mineral Oil/Petrolatum,White 106 Gm Tube TOPICAL 1 appl BID AMBROCIO Administration Multi-Ingred Cream/Lotion/Oil/Oint 1 appl 10/09/20 21:00 10/22/20 09:30 Mineral Oil/Petrolatum,White 106 Gm Tube TOPICAL 1 appl BID AMBROCIO Administration Multivitamins/Minerals 1 tab 09/25/20 13:30 10/22/20 09:25 Multivitamin With Minerals Tablet PO 1 tab DAILY AMBROCIO Administration Patient Own 1 each 08/14/20 10:27 08/14/20 12:06 Medication (Thera PO 1 each Breath Dry Mouth Q4H PRN Administration Lozenge) Dry Mouth Patient Own 1 each 08/14/20 10:30 10/22/20 09:26 Medication (Biotene PO Not Given 15 Ml) BID AMBROCIO Nystatin 1 appl 07/26/20 19:25 10/22/20 09:26 Nystatin Cream 15 Gm Tube TOPICAL Not Given DAILY [facility] Protocol Olanzapine 15 mg 10/06/20 12:18 10/17/20 11:17 Olanzapine 10 Mg Vial IM 15 mg BID PRN Administration if pt ref po zydis per jim Olanzapine 15 mg 10/06/20 21:00 10/22/20 09:25 Olanzapine Odt 10 Mg Tab.Rapdis TRANSLINGU 15 mg BID AMBROCIO Administration Olanzapine 5 mg 10/17/20 17:09 Olanzapine 5 Mg Tablet PO BID PRN psychosis, agitation Omeprazole 20 mg 07/24/20 06:30 10/22/20 09:25 Omeprazole 20 Mg Capsule. PO 20 mg DAILY@0630 [facility] Administration Ondansetron HCl 4 mg 08/08/20 09:04 08/08/20 09:27 Ondansetron Odt 4 Mg Tab.Rapdis TRANSLINGU 4 mg Q6H PRN Administration Nausea Saliva Substitute 1 spray 08/12/20 15:06 Dry Mouth [place] 30 Ml [place] MUCOUS MEM Q2H PRN Dry Mouth Tamsulosin HCl 0.4 mg 07/25/20 21:00 10/21/20 20:26 Tamsulosin Hcl 0.4 Mg Capsule PO Not Given BEDTIME [facility] Trazodone HCl 50 mg 07/23/20 21:13 10/18/20 00:06 Trazodone Hcl 50 Mg Tablet PO 50 mg BEDTIME PRN Administration Insomnia Vitamin D 50 mcg 07/23/20 21:00 10/21/20 20:05 Cholecalciferol (Vitamin D3) 25 Mcg Tablet PO 50 mcg BEDTIME [facility]IO Administration Allergies Allergies Allergy/AdvReac Type Severity Reaction Status Date / Time No Known Allergies Allergy Verified 07/21/20 16:39 Assessment & Plan Assessment & Plan (1) Schizophrenia, paranoid, subchronic with acute exacerbation: Status: Acute Code(s): F20.0 - Paranoid schizophrenia Assessment and Plan: Prolixin Decanoate 12.5 mg given 09/25/20. Discontinued after this one injection Continue Zydis 15 mg bid. If pt refuses Zyprexa 15 mg bid IM. Olanzapine 5 mg bid prn psychotic agitation Lorazepam 1 mg q 4 hours prn agitation. Clozaril 25 mg daily. Pt does not want to titrate as he believes Clozaril caused side effects which were intolerable. Meeting with out patient residential team on 10/23/20. Assessment and Plan: No changes in medication today, med adherent and tolerating them well. Greater than 50% of the session was spent on counseling and/or coordination of care Reason for contiued inpatient stay Substantial Risk for: harm to self, inability to function, rapid decompensation and med/psych decompensation
[2020-10-22 18:22] LABS: Sodium Urine Random < 20.0 mmol/L
[2020-10-23] MEDS: cloZAPine 25 MG TABLET PO (08:40)
[2020-10-23] MEDS: OLANZapine ODT 10 MG TAB.RAPDIS 15 MG TRANSLINGU (08:40)
[2020-10-23] MEDS: Ferrous Sulfate 324 MG TABLET.DR PO (08:48)
[2020-10-23 09:25] LABS: Anion Gap 11 (12-20); Blood Urea Nitrogen 14 mg/dL (9-16); Calcium 9.2 mg/dL (8.4-10.2); Carbon Dioxide 28 mmol/L (22-29); Chloride 104 mmol/L (96-108); Estimated Glomerular Filt Rate > 60; Glucose Random 101 mg/dL (60-115); Sodium 139 mmol/L (135-145)
[2020-10-23] MEDS: metFORMIN HCl 500 MG TABLET PO (16:28)
[2020-10-23 16:35] VITALS: BMI 38.4
--- NOTE | 2020-10-23 19:43 | P.PNPSI_ITS ---
Subjective Subjective Date of Service: 10/23/20 Reason For Visit: psychosis Subjective Notes: Conditional Voluntary Healthcare Proxy: No [facility] Medical Problems Affecting Mental Status: No Interim History: Meeting with pt, his brother Lisa Enriquez [facility],, [facility] and [facility] [place] 2] to discuss discharge planning. OP team discussed pt's home [facility] and changes in [facility] program since the COVID Pandemic. Discussion was focused on pt's current needs-at this time there is NO 24 hour nursing care on site at pt's home, and team was not aware that pt was not completely compliant with PO medications which is a concern. Reivewed that community guardianship was received on 09/19/20, allowing us currently 32 days to treat with trials of Prolixin PO-09/20, Prolixin Dec 09/25, Olanzapine 09/24 and Clozaril ongoing 25 mg as pt does not want to titrate. Mina commented that with current regime he saw pt not in a fog , but being a different person now . He mentioned incident last week where pt was threatening and said this is out of character for pt. Pt was able to participate well in the meeting, letting us know that his preference of living situation is to be with his mother in [place], [place]. Mina addressed that this was not possible due to mother's age and pts care needs however commended him for his honesty and candor. Discussed psychopharm plan for increase in Olanzapine to max today 20 mg bid and if tolerated, trial of Olanzapine david IM within the next few weeks. Medication Compliance: Yes (Olanzapine, Ferrous Sulfate, Clozaril) Side effects from medications: Yes (hand tremor-refusing Benztropine) Attending Groups: No Review of Systems Acute medical concerns: No Medical Review of Systems: unchanged Review of Systems Reports behavioral changes and Reports memory loss Psychiatric: Reports abnormal sleep pattern, Reports behavioral changes, Reports change in appetite, Reports depression, Reports auditory hallucinations, Reports irritability, Reports anhedonia, Reports memory loss, Reports paranoia and Reports visual hallucinations Mental Status Exam Mental Status Exam Patient Appearance: Appropriate Patient Orientation: Person, Place and Situation Level of Consciousness: Alert Patient Behavior: Appropriate and Cooperative Mood Description: Calm, Suspicious, Withdrawn, Fearful, Anxious, Nervous and Apprehensive Affect Description: Constricted Patient Cognition Impaired: Yes Ability to Follow Directions: Fair Speech Pattern: Difficulty Finding Words, Spontaneous Speech, Delayed and Long Pauses Memory Description: Remote Impaired and Episodic Impaired Hallucinations: Auditory and Visual Delusions: Paranoid Ideation and Present Perceptual Disturbances: Depersonalization and Derealization Thought Process: Illogical (talked in the meeting about wanting to join the [employer]) Thought Content: positive for [place], positive for [place] and positive for Thought Blocking Depressive Symptoms: Diff. Making Decisions, Increased Irritability, Difficulty Sleeping, Changes in Appetite, Loss of Energy and Difficulty Concentrating Judgement: Poor Diagnostics Vital Signs (24Hr): Body Mass Index 38.4 Labs Results: 10/09/20 08:00 10/23/20 08:18 Labs: Laboratory Results - last 48 hr 10/22/20 10/23/20 17:44 08:18 Sodium 139 Potassium 4.0 Chloride 104 Carbon Dioxide 28 Anion Gap 11 L BUN 14 Creatinine 0.75 Estim Creat Clear Calc 172.0 Estimated GFR > 60 Random Glucose 101 Calcium 9.2 Ur Random Sodium < 20.0 Imaging Radiology Impressions: ITS Impressions KUB X-Ray 07/22/20 17:13 IMPRESSION: Moderate volume of stool scattered in colon. No bowel obstruction. Medications Medications Current Medications Generic Name Dose Route Start Last Admin Trade Name Freq PRN Reason Stop Dose Admin Acetaminophen 650 mg 07/23/20 21:13 10/22/20 00:22 Acetaminophen 325 Mg Tablet PO 650 mg Q6H PRN Administration Headache/Pain Mild Scale (1-3) Al Hydroxide/Mg Hydroxide 30 ml 07/23/20 21:13 Magnesium Hydrox/Alum Hydrox 30 Ml Oral.Susp PO Q6H PRN Heartburn/Nausea Atorvastatin Calcium 80 mg 07/23/20 21:00 10/22/20 20:31 Atorvastatin Calcium 80 Mg Tablet PO Not Given BEDTIME [facility] Benztropine Mesylate 1 mg 10/08/20 21:00 10/23/20 08:47 Benztropine Mesylate 1 Mg Tablet PO Not Given BID AMBROCIO Clozapine 25 mg 10/08/20 09:00 10/23/20 08:40 Clozapine 25 Mg Tablet PO 25 mg DAILY AMBR[facility]IO Administration Enoxaparin Sodium 40 mg 10/07/20 15:00 10/23/20 14:15 Enoxaparin Sodium 40 Mg/0.4 Ml Syringe SUBCUT Not Given Q24H [facility] Ferrous Sulfate 324 mg 09/02/20 09:00 10/23/20 08:48 Ferrous Sulfate 324 Mg Tablet. PO 324 mg DAILY AMBROCIO Administration Finasteride 5 mg 07/23/20 17:00 10/23/20 08:48 Finasteride 5 Mg Tablet PO Not Given DAILY [facility] Hydroxyzine HCl 25 mg 07/23/20 21:13 08/17/20 03:00 Hydroxyzine Hcl 25 Mg Tablet PO 25 mg BEDTIME PRN Administration Anxiety Loperamide HCl 2 mg 07/24/20 15:43 07/24/20 15:54 Loperamide Hcl 2 Mg Capsule PO 2 mg Q4H PRN Administration Diarrhea Lorazepam 1 mg 10/17/20 17:09 10/22/20 03:41 Lorazepam 1 Mg Tablet PO 1 mg Q4H PRN Administration agitation Magnesium Hydroxide 30 ml 07/23/20 21:13 Milk Of Magnesia 30 Ml Oral.Susp PO DAILY PRN Constipation Metformin HCl 500 mg 08/14/20 17:00 10/23/20 16:28 Metformin Hcl 500 Mg Tablet PO 500 mg BIDWM AMBROCIO Administration Metoprolol Succinate 50 mg 10/16/20 13:00 10/23/20 08:48 Metoprolol Succinate Er 50 Mg Tab.Er.24h PO Not Given DAILY [facility] Protocol Multi-Ingred Cream/Lotion/Oil/Oint 1 appl 07/24/20 21:00 10/23/20 08:48 Mineral Oil/Petrolatum,White 106 Gm Tube TOPICAL Not Given BID AMBROCIO Multi-Ingred Cream/Lotion/Oil/Oint 1 appl 10/09/20 21:00 10/23/20 08:48 Mineral Oil/Petrolatum,White 106 Gm Tube TOPICAL Not Given BID [facility] Multivitamins/Minerals 1 tab 09/25/20 13:30 10/23/20 08:48 Multivitamin With Minerals Tablet PO Not Given DAILY [facility] Patient Own 1 each 08/14/20 10:27 08/14/20 12:06 Medication (Thera PO 1 each Breath Dry Mouth Q4H PRN Administration Lozenge) Dry Mouth Patient Own 1 each 08/14/20 10:30 10/23/20 08:49 Medication (Biotene PO Not Given 15 Ml) BID AMBROCIO Nystatin 1 appl 07/26/20 19:25 10/23/20 08:49 Nystatin Cream 15 Gm Tube TOPICAL Not Given DAILY [facility] Protocol Olanzapine 20 mg 10/23/20 12:18 Olanzapine 10 Mg Vial IM BID PRN if pt ref po zydis rafy fernandez Olanzapine 20 mg 10/23/20 21:00 Olanzapine Odt 10 Mg Tab.Rapdis TRANSLINGU BID [facility]BR[facility]IO Omeprazole 20 mg 07/24/20 06:30 10/23/20 08:47 Omeprazole 20 Mg Capsule.Dr PO Not Given DAILY@0630 [facility] Ondansetron HCl 4 mg 08/08/20 09:04 08/08/20 09:27 Ondansetron Odt 4 Mg Tab.Rapdis TRANSLINGU 4 mg Q6H PRN Administration Nausea Saliva Substitute 1 spray 08/12/20 15:06 Dry Mouth [place] 30 Ml [place] MUCOUS MEM Q2H PRN Dry Mouth Tamsulosin HCl 0.4 mg 07/25/20 21:00 10/22/20 20:32 Tamsulosin Hcl 0.4 Mg Capsule PO Not Given BEDTIME [facility] Trazodone HCl 50 mg 07/23/20 21:13 10/18/20 00:06 Trazodone Hcl 50 Mg Tablet PO 50 mg BEDTIME PRN Administration Insomnia Vitamin D 50 mcg 07/23/20 21:00 10/22/20 20:31 Cholecalciferol (Vitamin D3) 25 Mcg Tablet PO Not Given BEDTIME [facility] Allergies Allergies Allergy/AdvReac Type Severity Reaction Status Date / Time No Known Allergies Allergy Verified 07/21/20 16:39 Assessment & Plan Assessment & Plan (1) Schizophrenia, paranoid, subchronic with acute exacerbation: Status: Acute Code(s): F20.0 - Paranoid schizophrenia Assessment and Plan: Prolixin Decanoate 12.5 mg given 09/25/20. Discontinued after this one injection Increase Zydis 20 mg bid. If pt refuses Zyprexa 20 mg bid IM. Lorazepam 1 mg q 4 hours prn agitation. Clozaril 25 mg daily. Pt does not want to titrate as he believes Clozaril caused side effects which were intolerable. Meeting with out patient residential team on 10/23/20. Assessment and Plan: No changes in medication today, med adherent and tolerating them well. Greater than 50% of the session was spent on counseling and/or coordination of care Reason for contiued inpatient stay Substantial Risk for: harm to self, harm to others, inability to function, rapid decompensation and med/psych decompensation
[2020-10-23] MEDS: OLANZapine ODT 10 MG TAB.RAPDIS 20 MG TRANSLINGU (20:32)
[2020-10-24] MEDS: traZODone HCL 50 MG TABLET PO (01:24)
[2020-10-24] MEDS: cloZAPine 25 MG TABLET PO (08:42)
[2020-10-24] MEDS: Ferrous Sulfate 324 MG TABLET.DR PO (08:42)
[2020-10-24] MEDS: OLANZapine ODT 10 MG TAB.RAPDIS 20 MG TRANSLINGU ×2 (08:43→22:03)
--- NOTE | 2020-10-24 16:10 | HO.PSYCHPN ---
Subjective Subjective Date of Service: 10/24/20 Reason For Visit: psychosis Subjective Notes: Conditional Voluntary Healthcare Proxy: No Guardianship: Yes ([facility]) Medical Problems Affecting Mental Status: No Interim History: Reviewed with Juan his impressions of the meeting with his out pt team yesterday. He is flat, not too responsive, states, yea, about discharge I guess . He is focused on watching a TV movie, denies symptoms of concern, appears somewhat internally preoccupied. Accepting of po psychotropics and ferrous sulfate. Medication Compliance: Intermittent Side effects from medications: Yes (hand tremor-refuses benztropine) Attending Groups: No Review of Systems Acute medical concerns: No Medical Review of Systems: unchanged Review of Systems Reports behavioral changes, Reports confusion and Reports memory loss Psychiatric: Reports abnormal sleep pattern, Reports anxiety, Reports behavioral changes, Reports change in appetite, Reports confusion, Reports difficulty concentrating, Reports auditory hallucinations, Reports irritability, Reports anhedonia, Reports memory loss, Reports mood swings, Reports paranoia, Reports visual hallucinations and Reports suicidal ideation (denies) Mental Status Exam Mental Status Exam Patient Appearance: Fatigued Patient Orientation: Person and Place Level of Consciousness: Alert Patient Behavior: Guarded, Talkative, Suspicious and Poor Eye Contact Mood Description: Blunted and Angry Affect Description: Blunted Patient Cognition Impaired: Yes Ability to Follow Directions: Fair Speech Pattern: Spontaneous Speech Memory Description: Remote Impaired, Immediate Impaired and Episodic Impaired Hallucinations: Auditory and Visual Delusions: Paranoid Ideation Perceptual Disturbances: Depersonalization and Derealization Thought Process: Distracted and Rumination Thought Content: positive for Perseveration, positive for Thought Blocking and positive for Suicidal Ideation (denies) Depressive Symptoms: Difficulty Concentrating Judgement: Poor Diagnostics Vital Signs (24Hr): Body Mass Index 38.4 Labs Results: 10/09/20 08:00 10/23/20 08:18 Labs: Laboratory Results - last 48 hr 10/22/20 10/23/20 17:44 08:18 Sodium 139 Potassium 4.0 Chloride 104 Carbon Dioxide 28 Anion Gap 11 L BUN 14 Creatinine 0.75 Estim Creat Clear Calc 172.0 Estimated GFR > 60 Random Glucose 101 Calcium 9.2 Ur Random Sodium < 20.0 Imaging Radiology Impressions: ITS Impressions KUB X-Ray 07/22/20 17:13 IMPRESSION: Moderate volume of stool scattered in colon. No bowel obstruction. Medications Medications Current Medications Generic Name Dose Route Start Last Admin Trade Name Freq PRN Reason Stop Dose Admin Acetaminophen 650 mg 07/23/20 21:13 10/22/20 00:22 Acetaminophen 325 Mg Tablet PO 650 mg Q6H PRN Administration Headache/Pain Mild Scale (1-3) Al Hydroxide/Mg Hydroxide 30 ml 07/23/20 21:13 Magnesium Hydrox/Alum Hydrox 30 Ml Oral.Susp PO Q6H PRN Heartburn/Nausea Atorvastatin Calcium 80 mg 07/23/20 21:00 10/23/20 20:36 Atorvastatin Calcium 80 Mg Tablet PO Not Given BEDTIME [facility] Benztropine Mesylate 1 mg 10/08/20 21:00 10/24/20 08:49 Benztropine Mesylate 1 Mg Tablet PO Not Given BID [facility] Clozapine 25 mg 10/08/20 09:00 10/24/20 08:42 Clozapine 25 Mg Tablet PO 25 mg DAILY [facility] Administration Enoxaparin Sodium 40 mg 10/07/20 15:00 10/24/20 14:45 Enoxaparin Sodium 40 Mg/0.4 Ml Syringe SUBCUT Not Given Q24H COUNTS INCLUDE 234 BEDS AT THE [facility] Ferrous Sulfate 324 mg 09/02/20 09:00 10/24/20 08:42 Ferrous Sulfate 324 Mg Tablet.Dr PO 324 mg DAILY [facility] Administration Finasteride 5 mg 07/23/20 17:00 10/24/20 08:49 Finasteride 5 Mg Tablet PO Not Given DAILY [facility] Hydroxyzine HCl 25 mg 07/23/20 21:13 08/17/20 03:00 Hydroxyzine Hcl 25 Mg Tablet PO 25 mg BEDTIME PRN Administration Anxiety Loperamide HCl 2 mg 07/24/20 15:43 07/24/20 15:54 Loperamide Hcl 2 Mg Capsule PO 2 mg Q4H PRN Administration Diarrhea Lorazepam 1 mg 10/17/20 17:09 10/22/20 03:41 Lorazepam 1 Mg Tablet PO 1 mg Q4H PRN Administration agitation Magnesium Hydroxide 30 ml 07/23/20 21:13 Milk Of Magnesia 30 Ml Oral.Susp PO DAILY PRN Constipation Metformin HCl 500 mg 08/14/20 17:00 10/24/20 08:49 Metformin Hcl 500 Mg Tablet PO Not Given BIDWM [facility] Metoprolol Succinate 50 mg 10/16/20 13:00 10/24/20 08:49 Metoprolol Succinate Er 50 Mg Tab.Er.24h PO Not Given DAILY COUNTS INCLUDE 234 BEDS AT THE [facility] Protocol Multi-Ingred Cream/Lotion/Oil/Oint 1 appl 07/24/20 21:00 10/24/20 08:49 Mineral Oil/Petrolatum,White 106 Gm Tube TOPICAL Not Given BID COUNTS INCLUDE 234 BEDS AT THE [facility] Multi-Ingred Cream/Lotion/Oil/Oint 1 appl 10/09/20 21:00 10/24/20 08:50 Mineral Oil/Petrolatum,White 106 Gm Tube TOPICAL Not Given BID COUNTS INCLUDE 234 BEDS AT THE [facility] Multivitamins/Minerals 1 tab 09/25/20 13:30 10/24/20 08:50 Multivitamin With Minerals Tablet PO Not Given DAILY COUNTS INCLUDE 234 BEDS AT THE [facility] Patient Own 1 each 08/14/20 10:27 08/14/20 12:06 Medication (Thera PO 1 each Breath Dry Mouth Q4H PRN Administration Lozenge) Dry Mouth Patient Own 1 each 08/14/20 10:30 10/24/20 08:50 Medication (Biotene PO Not Given 15 Ml) BID COUNTS INCLUDE 234 BEDS AT THE [facility] Nystatin 1 appl 07/26/20 19:25 10/24/20 08:50 Nystatin Cream 15 Gm Tube TOPICAL Not Given DAILY COUNTS INCLUDE 234 BEDS AT THE [facility] Protocol Olanzapine 20 mg 10/23/20 12:18 Olanzapine 10 Mg Vial IM BID PRN if pt ref po zydis per manuelito Olanzapine 20 mg 10/23/20 21:00 10/24/20 08:43 Olanzapine Odt 10 Mg Tab.Rapdis TRANSLINGU 20 mg BID [facility]BR[facility] Administration Omeprazole 20 mg 07/24/20 06:30 10/24/20 08:49 Omeprazole 20 Mg Capsule. PO Not Given DAILY@0630 COUNTS INCLUDE 234 BEDS AT THE [facility] Ondansetron HCl 4 mg 08/08/20 09:04 08/08/20 09:27 Ondansetron Odt 4 Mg Tab.Rapdis TRANSLINGU 4 mg Q6H PRN Administration Nausea Saliva Substitute 1 spray 08/12/20 15:06 Dry Mouth [place] 30 Ml [place] MUCOUS MEM Q2H PRN Dry Mouth Trazodone HCl 50 mg 07/23/20 21:13 10/24/20 01:24 Trazodone Hcl 50 Mg Tablet PO 50 mg BEDTIME PRN Administration Insomnia Vitamin D 50 mcg 07/23/20 21:00 10/23/20 20:37 Cholecalciferol (Vitamin D3) 25 Mcg Tablet PO Not Given BEDTIME COUNTS INCLUDE 234 BEDS AT THE [facility] Allergies Allergies Allergy/AdvReac Type Severity Reaction Status Date / Time No Known Allergies Allergy Verified 07/21/20 16:39 Assessment & Plan Assessment & Plan (1) Schizophrenia, paranoid, subchronic with acute exacerbation: Status: Acute Code(s): F20.0 - Paranoid schizophrenia Assessment and Plan: Prolixin Decanoate 12.5 mg given 09/25/20. Discontinued after this one injection Continue Zydis 20 mg bid. If pt refuses Zyprexa 20 mg bid IM. Lorazepam 1 mg q 4 hours prn agitation. Clozaril 25 mg daily. Pt does not want to titrate as he believes Clozaril caused side effects which were intolerable. Focus with pt on discharge related activities. Assessment and Plan: No changes in medication today, med adherent and tolerating them well. Greater than 50% of the session was spent on counseling and/or coordination of care Reason for contiued inpatient stay Substantial Risk for: harm to self, harm to others, inability to function, rapid decompensation and med/psych decompensation
[2020-10-25] MEDS: cloZAPine 25 MG TABLET PO (08:22)
[2020-10-25] MEDS: Ferrous Sulfate 324 MG TABLET.DR PO (08:22)
[2020-10-25] MEDS: OLANZapine ODT 10 MG TAB.RAPDIS 20 MG TRANSLINGU ×2 (08:22→22:02)
[2020-10-25 16:35] VITALS: BP 132/60; PULSE 92
--- NOTE | 2020-10-25 21:36 | HO.PSYCHPN ---
Subjective Subjective Date of Service: 10/25/20 Reason For Visit: psychosis Subjective Notes: Section 8 Interim History: cooperative, pleasant but guarded Medication Compliance: Yes Side effects from medications: No Attending Groups: No Review of Systems Acute medical concerns: No Medical Review of Systems: unchanged Diagnostics Vital Signs (24Hr): Vital Signs - 24 hr 10/25/20 16:35 Pulse Rate 92 Blood Pressure 132/60 Body Mass Index 38.4 Labs Results: 10/09/20 08:00 10/23/20 08:18 Imaging Radiology Impressions: ITS Impressions KUB X-Ray 07/22/20 17:13 IMPRESSION: Moderate volume of stool scattered in colon. No bowel obstruction. Medications Medications Current Medications Generic Name Dose Route Start Last Admin Trade Name Freq PRN Reason Stop Dose Admin Acetaminophen 650 mg 07/23/20 21:13 10/22/20 00:22 Acetaminophen 325 Mg Tablet PO 650 mg Q6H PRN Administration Headache/Pain Mild Scale (1-3) Al Hydroxide/Mg Hydroxide 30 ml 07/23/20 21:13 Magnesium Hydrox/Alum Hydrox 30 Ml Oral.Susp PO Q6H PRN Heartburn/Nausea Atorvastatin Calcium 80 mg 07/23/20 21:00 10/24/20 22:13 Atorvastatin Calcium 80 Mg Tablet PO Not Given BEDTIME [facility] Benztropine Mesylate 1 mg 10/08/20 21:00 10/25/20 08:26 Benztropine Mesylate 1 Mg Tablet PO Not Given BID [facility] Clozapine 25 mg 10/08/20 09:00 10/25/20 08:22 Clozapine 25 Mg Tablet PO 25 mg DAILY [facility] Administration Enoxaparin Sodium 40 mg 10/07/20 15:00 10/25/20 14:35 Enoxaparin Sodium 40 Mg/0.4 Ml Syringe SUBCUT Not Given Q24H [facility] Ferrous Sulfate 324 mg 09/02/20 09:00 10/25/20 08:22 Ferrous Sulfate 324 Mg Tablet. PO 324 mg DAILY [facility] Administration Finasteride 5 mg 07/23/20 17:00 10/25/20 08:26 Finasteride 5 Mg Tablet PO Not Given DAILY [facility] Hydroxyzine HCl 25 mg 07/23/20 21:13 08/17/20 03:00 Hydroxyzine Hcl 25 Mg Tablet PO 25 mg BEDTIME PRN Administration Anxiety Loperamide HCl 2 mg 07/24/20 15:43 07/24/20 15:54 Loperamide Hcl 2 Mg Capsule PO 2 mg Q4H PRN Administration Diarrhea Lorazepam 1 mg 10/17/20 17:09 10/22/20 03:41 Lorazepam 1 Mg Tablet PO 1 mg Q4H PRN Administration agitation Magnesium Hydroxide 30 ml 07/23/20 21:13 Milk Of Magnesia 30 Ml Oral.Susp PO DAILY PRN Constipation Metformin HCl 500 mg 08/14/20 17:00 10/25/20 17:07 Metformin Hcl 500 Mg Tablet PO Not Given BIDWM [facility] Metoprolol Succinate 50 mg 10/16/20 13:00 10/25/20 08:26 Metoprolol Succinate Er 50 Mg Tab.Er.24h PO Not Given DAILY [facility] Protocol Multi-Ingred Cream/Lotion/Oil/Oint 1 appl 07/24/20 21:00 10/25/20 08:26 Mineral Oil/Petrolatum,White 106 Gm Tube TOPICAL Not Given BID [facility] Multi-Ingred Cream/Lotion/Oil/Oint 1 appl 10/09/20 21:00 10/25/20 08:27 Mineral Oil/Petrolatum,White 106 Gm Tube TOPICAL Not Given BID [facility] Multivitamins/Minerals 1 tab 09/25/20 13:30 10/25/20 08:27 Multivitamin With Minerals Tablet PO Not Given DAILY [facility] Patient Own 1 each 08/14/20 10:27 08/14/20 12:06 Medication (Thera PO 1 each Breath Dry Mouth Q4H PRN Administration Lozenge) Dry Mouth Patient Own 1 each 08/14/20 10:30 10/25/20 08:27 Medication (Biotene PO Not Given 15 Ml) BID [facility] Nystatin 1 appl 07/26/20 19:25 10/25/20 08:27 Nystatin Cream 15 Gm Tube TOPICAL Not Given DAILY [facility] Protocol Olanzapine 20 mg 10/23/20 12:18 Olanzapine 10 Mg Vial IM BID PRN if pt ref po zydis rafy fernandez Olanzapine 20 mg 10/23/20 21:00 10/25/20 08:22 Olanzapine Odt 10 Mg Tab.Rapdis TRANSLINGU 20 mg BID [facility] Administration Omeprazole 20 mg 07/24/20 06:30 10/25/20 08:25 Omeprazole 20 Mg Capsule. PO Not Given DAILY@0630 [facility] Ondansetron HCl 4 mg 08/08/20 09:04 08/08/20 09:27 Ondansetron Odt 4 Mg Tab.Rapdis TRANSLINGU 4 mg Q6H PRN Administration Nausea Saliva Substitute 1 spray 08/12/20 15:06 Dry Mouth [place] 30 Ml [place] MUCOUS MEM Q2H PRN Dry Mouth Trazodone HCl 50 mg 07/23/20 21:13 10/24/20 01:24 Trazodone Hcl 50 Mg Tablet PO 50 mg BEDTIME PRN Administration Insomnia Vitamin D 50 mcg 07/23/20 21:00 10/24/20 22:13 Cholecalciferol (Vitamin D3) 25 Mcg Tablet PO Not Given BEDTIME [facility] Allergies Allergies Allergy/AdvReac Type Severity Reaction Status Date / Time No Known Allergies Allergy Verified 07/21/20 16:39 Assessment & Plan Assessment & Plan (1) Schizophrenia, paranoid, subchronic with acute exacerbation: Status: Acute Code(s): F20.0 - Paranoid schizophrenia Assessment and Plan: Continue with paln below: Prolixin Decanoate 12.5 mg given 09/25/20. Discontinued after this one injection Continue Zydis 20 mg bid. If pt refuses Zyprexa 20 mg bid IM. Lorazepam 1 mg q 4 hours prn agitation. Clozaril 25 mg daily. Pt does not want to titrate as he believes Clozaril caused side effects which were intolerable. Focus with pt on discharge related activities. Assessment and Plan: No changes in medication today, med adherent and tolerating them well. Greater than 50% of the session was spent on counseling and/or coordination of care Reason for contiued inpatient stay Substantial Risk for: harm to self, inability to function and med/psych decompensation
[2020-10-25] MEDS: Mineral Oil/Petrolatum,White 106 GM Tube 1 APPL TOPICAL (22:00)
[2020-10-26] MEDS: traZODone HCL 50 MG TABLET PO (02:21)
[2020-10-26] MEDS: cloZAPine 25 MG TABLET PO (07:52)
[2020-10-26] MEDS: Ferrous Sulfate 324 MG TABLET.DR PO (07:52)
[2020-10-26] MEDS: OLANZapine ODT 10 MG TAB.RAPDIS 20 MG TRANSLINGU ×2 (07:52→22:02)
--- NOTE | 2020-10-26 12:10 | HO.PSYCHPN ---
Subjective Subjective Date of Service: 10/26/20 Reason For Visit: psychosis Subjective Notes: Section 8 Interim History: cooperative, pleasant but guarded Medication Compliance: Intermittent Side effects from medications: No Attending Groups: No Review of Systems Medical Review of Systems: unchanged Mental Status Exam Mental Status Exam Patient Appearance: Fatigued Patient Orientation: Person and Place Level of Consciousness: Alert Patient Behavior: Guarded, Talkative, Suspicious and Poor Eye Contact Behavior Comments: actually makes eye contact here and there- appears fearful Mood Description: Blunted and Angry Affect Description: Blunted Patient Cognition Impaired: Yes Ability to Follow Directions: Fair Speech Pattern: Spontaneous Speech Memory Description: Remote Impaired, Immediate Impaired and Episodic Impaired Judgement: Fair Diagnostics Vital Signs (24Hr): Vital Signs - 24 hr 10/25/20 16:35 Pulse Rate 92 Blood Pressure 132/60 Body Mass Index 38.4 Labs Results: 10/09/20 08:00 10/23/20 08:18 Imaging Radiology Impressions: ITS Impressions KUB X-Ray 07/22/20 17:13 IMPRESSION: Moderate volume of stool scattered in colon. No bowel obstruction. Medications Medications Current Medications Generic Name Dose Route Start Last Admin Trade Name Freq PRN Reason Stop Dose Admin Acetaminophen 650 mg 07/23/20 21:13 10/22/20 00:22 Acetaminophen 325 Mg Tablet PO 650 mg Q6H PRN Administration Headache/Pain Mild Scale (1-3) Al Hydroxide/Mg Hydroxide 30 ml 07/23/20 21:13 Magnesium Hydrox/Alum Hydrox 30 Ml Oral.Susp PO Q6H PRN Heartburn/Nausea Atorvastatin Calcium 80 mg 07/23/20 21:00 10/25/20 22:01 Atorvastatin Calcium 80 Mg Tablet PO Not Given BEDTIME [facility] Benztropine Mesylate 1 mg 10/08/20 21:00 10/26/20 08:10 Benztropine Mesylate 1 Mg Tablet PO Not Given BID [facility] Clozapine 25 mg 10/08/20 09:00 10/26/20 07:52 Clozapine 25 Mg Tablet PO 25 mg DAILY [facility] Administration Enoxaparin Sodium 40 mg 10/07/20 15:00 10/25/20 14:35 Enoxaparin Sodium 40 Mg/0.4 Ml Syringe SUBCUT Not Given Q24H [facility] Ferrous Sulfate 324 mg 09/02/20 09:00 10/26/20 07:52 Ferrous Sulfate 324 Mg Tablet. PO 324 mg DAILY [facility] Administration Finasteride 5 mg 07/23/20 17:00 10/26/20 08:10 Finasteride 5 Mg Tablet PO Not Given DAILY [facility] Hydroxyzine HCl 25 mg 07/23/20 21:13 08/17/20 03:00 Hydroxyzine Hcl 25 Mg Tablet PO 25 mg BEDTIME PRN Administration Anxiety Loperamide HCl 2 mg 07/24/20 15:43 07/24/20 15:54 Loperamide Hcl 2 Mg Capsule PO 2 mg Q4H PRN Administration Diarrhea Lorazepam 1 mg 10/17/20 17:09 10/22/20 03:41 Lorazepam 1 Mg Tablet PO 1 mg Q4H PRN Administration agitation Magnesium Hydroxide 30 ml 07/23/20 21:13 Milk Of Magnesia 30 Ml Oral.Susp PO DAILY PRN Constipation Metformin HCl 500 mg 08/14/20 17:00 10/26/20 08:10 Metformin Hcl 500 Mg Tablet PO Not Given BIDWM [facility] Metoprolol Succinate 50 mg 10/16/20 13:00 10/26/20 08:10 Metoprolol Succinate Er 50 Mg Tab.Er.24h PO Not Given DAILY [facility] Protocol Multi-Ingred Cream/Lotion/Oil/Oint 1 appl 07/24/20 21:00 10/26/20 08:11 Mineral Oil/Petrolatum,White 106 Gm Tube TOPICAL Not Given BID [facility] Multi-Ingred Cream/Lotion/Oil/Oint 1 appl 10/09/20 21:00 10/26/20 08:11 Mineral Oil/Petrolatum,White 106 Gm Tube TOPICAL Not Given BID [facility] Multivitamins/Minerals 1 tab 09/25/20 13:30 10/26/20 08:11 Multivitamin With Minerals Tablet PO Not Given DAILY [facility] Patient Own 1 each 08/14/20 10:27 08/14/20 12:06 Medication (Thera PO 1 each Breath Dry Mouth Q4H PRN Administration Lozenge) Dry Mouth Patient Own 1 each 08/14/20 10:30 10/26/20 08:11 Medication (Biotene PO Not Given 15 Ml) BID [facility] Nystatin 1 appl 07/26/20 19:25 10/26/20 08:12 Nystatin Cream 15 Gm Tube TOPICAL Not Given DAILY [facility] Protocol Olanzapine 20 mg 10/23/20 12:18 Olanzapine 10 Mg Vial IM BID PRN if pt ref po zydis per jim Olanzapine 20 mg 10/23/20 21:00 10/26/20 07:52 Olanzapine Odt 10 Mg Tab.Rapdis TRANSLINGU 20 mg BID AMBROCIO Administration Omeprazole 20 mg 07/24/20 06:30 10/26/20 08:10 Omeprazole 20 Mg Capsule.Dr PO Not Given DAILY@0630 [facility] Ondansetron HCl 4 mg 08/08/20 09:04 08/08/20 09:27 Ondansetron Odt 4 Mg Tab.Rapdis TRANSLINGU 4 mg Q6H PRN Administration Nausea Saliva Substitute 1 spray 08/12/20 15:06 Dry Mouth [place] 30 Ml [place] MUCOUS MEM Q2H PRN Dry Mouth Trazodone HCl 50 mg 07/23/20 21:13 10/26/20 02:21 Trazodone Hcl 50 Mg Tablet PO 50 mg BEDTIME PRN Administration Insomnia Vitamin D 50 mcg 07/23/20 21:00 10/25/20 22:02 Cholecalciferol (Vitamin D3) 25 Mcg Tablet PO Not Given BEDTIME [facility] Allergies Allergies Allergy/AdvReac Type Severity Reaction Status Date / Time No Known Allergies Allergy Verified 07/21/20 16:39 Assessment & Plan Assessment & Plan (1) Schizophrenia, paranoid, subchronic with acute exacerbation: Status: Acute Code(s): F20.0 - Paranoid schizophrenia Assessment and Plan: Continue with plan below: Continue Zydis 20 mg bid. If pt refuses Zyprexa 20 mg bid IM. Lorazepam 1 mg q 4 hours prn agitation. Clozaril 25 mg daily. Pt does not want to titrate as he believes Clozaril caused side effects which were intolerable. conintue to encourage moving/ standing/walking Focus with pt on discharge related activities. Assessment and Plan: No changes in medication today, med adherent and tolerating them well. Greater than 50% of the session was spent on counseling and/or coordination of care Reason for contiued inpatient stay Substantial Risk for: harm to self, inability to function and med/psych decompensation
[2020-10-27] MEDS: traZODone HCL 50 MG TABLET PO (02:20)
[2020-10-27] MEDS: cloZAPine 25 MG TABLET PO (07:59)
[2020-10-27] MEDS: OLANZapine ODT 10 MG TAB.RAPDIS 20 MG TRANSLINGU (07:59)
[2020-10-27] MEDS: Ferrous Sulfate 324 MG TABLET.DR PO (08:14)
[2020-10-27 08:36] LABS: MANUAL DIFF FLAG NO
[2020-10-27 08:47] LABS: Basophils Percent Auto 0.4 % (0-2); Eosinophils Absolute Auto 0.4 X10*3/uL (0.0-0.4); Eosinophils Percent Auto 3.9 % (0-4); Hematocrit 33.7 % (42-52); Hemoglobin 10.8 g/dl (14.0-18.0); Imm Gran Abs Auto 0.08 X10*3/uL (0.00-0.03); Imm Gran Pct Auto 0.7 % (0.0-0.4); Lymphocytes Percent Auto 17.6 % (20-40); Mean Corpuscular Hemoglobin 26.5 pg (27.0-33.0); Mean Corpuscular Volume 82.6 fL (80-98); Mean Platelet Volume 9.8 fL (9.4-12.4); Monocytes Absolute Auto 0.7 X10*3/uL (0.1-1.2); Monocytes Percent Auto 6.3 % (2-11); Neutrophils Percent Auto 71.1 % (45-73); Platelet Count 283 X10*3/uL (160-400); Red Blood Count 4.08 X10*6/uL (4.60-5.80); Red Cell Distribution Width 15.8 % (11.0-16.0); White Blood Count 11.3 X10*3/uL (4.8-10.8)
--- NOTE | 2020-10-27 12:27 | P.PNPSI_ITS ---
Subjective Subjective Date of Service: 10/27/20 Reason For Visit: psychosis Subjective Notes: Conditional Voluntary Healthcare Proxy: No Guardianship: No Medical Problems Affecting Mental Status: No Interim History: Team reports a difficult few days for pt- some refusal of po meds, grabbed one of the nurses by her bicep over the weekend, believes something may be wrong with the food so appetite has decreased, less communicative-stares to watch TV without attentiveness, perceptual alterations intermittent. Met with Lisa TAMAYO and pt's brother Mina to discuss ongoing planning and possible application for [employer]. Will proceed with consultation from our legal resources and Angelica TAMAYO. Medication Compliance: Intermittent Side effects from medications: No Attending Groups: No Review of Systems Acute medical concerns: No Medical Review of Systems: unchanged Review of Systems Reports behavioral changes Psychiatric: Reports abnormal sleep pattern, Reports behavioral changes, Reports change in appetite, Reports difficulty concentrating, Reports auditory halluc inations, Reports paranoia and Reports visual hallucinations Mental Status Exam Mental Status Exam Patient Appearance: Fatigued (dissociative at times) Patient Orientation: Person and Place Level of Consciousness: Alert Patient Behavior: Guarded, Talkative, Suspicious, Distractible and Poor Eye Contact Mood Description: Blunted Affect Description: Blunted Patient Cognition Impaired: Yes Ability to Follow Directions: Good Speech Pattern: Difficulty Finding Words, Spontaneous Speech and Long Pauses Memory Description: Remote Impaired and Episodic Impaired Hallucinations: Auditory and Visual Delusions: Paranoid Ideation Perceptual Disturbances: Depersonalization and Derealization Thought Process: Distracted, Rumination and Slowed Thinking Thought Content: positive for Perseveration and positive for Thought Blocking Depressive Symptoms: Difficulty Sleeping and Changes in Appetite Judgement: Poor Diagnostics Vital Signs (24Hr): Body Mass Index 38.4 Labs Results: 10/27/20 08:18 10/23/20 08:18 Labs: Laboratory Results - last 48 hr 10/27/20 08:18 WBC 11.3 H RBC 4.08 L Hgb 10.8 L Hct 33.7 L MCV 82.6 MCH 26.5 L MCHC 32.0 RDW 15.8 Plt Count 283 MPV 9.8 Immature Gran % (Auto) 0.7 H Neut % (Auto) 71.1 Lymph % (Auto) 17.6 L [place] % (Auto) 6.3 Eos % (Auto) 3.9 Baso % (Auto) 0.4 Lymph # (Auto) 2.0 [place] # (Auto) 0.7 Eos # (Auto) 0.4 Baso # (Auto) 0.0 Abs Immat Gran (auto) 0.08 H Absolute Neuts (auto) 8.0 Absolute Nucleated RBC 0.000 Nucleated RBC % (auto) 0.0 Imaging Radiology Impressions: ITS Impressions KUB X-Ray 07/22/20 17:13 IMPRESSION: Moderate volume of stool scattered in colon. No bowel obstruction. Medications Medications Current Medications Generic Name Dose Route Start Last Admin Trade Name Freq PRN Reason Stop Dose Admin Acetaminophen 650 mg 07/23/20 21:13 10/22/20 00:22 Acetaminophen 325 Mg Tablet PO 650 mg Q6H PRN Administration Headache/Pain Mild Scale (1-3) Al Hydroxide/Mg Hydroxide 30 ml 07/23/20 21:13 Magnesium Hydrox/Alum Hydrox 30 Ml Oral.Susp PO Q6H PRN Heartburn/Nausea Atorvastatin Calcium 80 mg 07/23/20 21:00 10/26/20 23:30 Atorvastatin Calcium 80 Mg Tablet PO Not Given BEDTIME [facility] Benztropine Mesylate 1 mg 10/08/20 21:00 10/27/20 09:07 Benztropine Mesylate 1 Mg Tablet PO Not Given BID [facility] Clozapine 25 mg 10/08/20 09:00 10/27/20 07:59 Clozapine 25 Mg Tablet PO 25 mg DAILY [facility] Administration Enoxaparin Sodium 40 mg 10/07/20 15:00 10/26/20 14:52 Enoxaparin Sodium 40 Mg/0.4 Ml Syringe SUBCUT Not Given Q24H [facility] Ferrous Sulfate 324 mg 09/02/20 09:00 10/27/20 08:14 Ferrous Sulfate 324 Mg Tablet.Dr PO 324 mg DAILY [facility] Administration Finasteride 5 mg 07/23/20 17:00 10/27/20 09:07 Finasteride 5 Mg Tablet PO Not Given DAILY [facility] Hydroxyzine HCl 25 mg 07/23/20 21:13 08/17/20 03:00 Hydroxyzine Hcl 25 Mg Tablet PO 25 mg BEDTIME PRN Administration Anxiety Loperamide HCl 2 mg 07/24/20 15:43 07/24/20 15:54 Loperamide Hcl 2 Mg Capsule PO 2 mg Q4H PRN Administration Diarrhea Lorazepam 1 mg 10/17/20 17:09 10/22/20 03:41 Lorazepam 1 Mg Tablet PO 1 mg Q4H PRN Administration agitation Magnesium Hydroxide 30 ml 07/23/20 21:13 Milk Of Magnesia 30 Ml Oral.Susp PO DAILY PRN Constipation Metformin HCl 500 mg 08/14/20 17:00 10/27/20 09:06 Metformin Hcl 500 Mg Tablet PO Not Given BIDWM [facility] Metoprolol Succinate 50 mg 10/16/20 13:00 10/27/20 09:09 Metoprolol Succinate Er 50 Mg Tab.Er.24h PO Not Given DAILY [facility] Protocol Multi-Ingred Cream/Lotion/Oil/Oint 1 appl 07/24/20 21:00 10/27/20 09:10 Mineral Oil/Petrolatum,White 106 Gm Tube TOPICAL Not Given BID [facility] Multi-Ingred Cream/Lotion/Oil/Oint 1 appl 10/09/20 21:00 10/27/20 09:10 Mineral Oil/Petrolatum,White 106 Gm Tube TOPICAL Not Given BID [facility] Multivitamins/Minerals 1 tab 09/25/20 13:30 10/27/20 09:10 Multivitamin With Minerals Tablet PO Not Given DAILY [facility] Patient Own 1 each 08/14/20 10:27 08/14/20 12:06 Medication (Thera PO 1 each Breath Dry Mouth Q4H PRN Administration Lozenge) Dry Mouth Patient Own 1 each 08/14/20 10:30 10/27/20 09:11 Medication (Biotene PO Not Given 15 Ml) BID [facility] Nystatin 1 appl 07/26/20 19:25 10/27/20 09:11 Nystatin Cream 15 Gm Tube TOPICAL Not Given DAILY [facility] Protocol Olanzapine 20 mg 10/23/20 12:18 Olanzapine 10 Mg Vial IM BID PRN if pt ref po zydis rafy fernandez Olanzapine 20 mg 10/23/20 21:00 10/27/20 07:59 Olanzapine Odt 10 Mg Tab.Rapdis TRANSLINGU 20 mg BID [facility] Administration Omeprazole 20 mg 07/24/20 06:30 10/27/20 09:06 Omeprazole 20 Mg Capsule.Dr PO Not Given DAILY@0630 [facility] Ondansetron HCl 4 mg 08/08/20 09:04 08/08/20 09:27 Ondansetron Odt 4 Mg Tab.Rapdis TRANSLINGU 4 mg Q6H PRN Administration Nausea Saliva Substitute 1 spray 08/12/20 15:06 Dry Mouth [place] 30 Ml [place] MUCOUS MEM Q2H PRN [place] Mouth Trazodone HCl 50 mg 07/23/20 21:13 10/27/20 02:20 Trazodone Hcl 50 Mg Tablet PO 50 mg BEDTIME PRN Administration Insomnia Vitamin D 50 mcg 07/23/20 21:00 10/26/20 23:30 Cholecalciferol (Vitamin D3) 25 Mcg Tablet PO Not Given BEDTIME [facility] Allergies Allergies Allergy/AdvReac Type Severity Reaction Status Date / Time No Known Allergies Allergy Verified 07/21/20 16:39 Assessment & Plan Assessment & Plan (1) Schizophrenia, paranoid, subchronic with acute exacerbation: Status: Acute Code(s): F20.0 - Paranoid schizophrenia Assessment and Plan: Continue with plan below: Continue Zydis 20 mg bid. If pt refuses Zyprexa 20 mg bid IM. Lorazepam 1 mg q 4 hours prn agitation. Clozaril 25 mg daily. Pt does not want to titrate as he believes Clozaril caused side effects which were intolerable. conintue to encourage moving/ standing/walking Focus with pt on discharge related activities. Possible [employer] application. Assessment and Plan: No changes in medication today, med adherent and tolerating them well. Greater than 50% of the session was spent on counseling and/or coordination of care Reason for contiued inpatient stay Substantial Risk for: harm to self, harm to others, inability to function, rapid decompensation and med/psych decompensation
[2020-10-27] MEDS: metFORMIN HCl 500 MG TABLET PO (18:50)
--- NOTE | 2020-10-27 18:52 | PC.NURSE ---
Pt initially refused metformin 500mg PO, but changed mind with staff support and took med at 1850.
[2020-10-27] MEDS: OLANZapine 10 MG VIAL 20 MG IM (21:30)
[2020-10-28] MEDS: cloZAPine 25 MG TABLET PO (08:48)
[2020-10-28] MEDS: metFORMIN HCl 500 MG TABLET PO (08:48)
[2020-10-28] MEDS: Ferrous Sulfate 324 MG TABLET.DR PO (08:48)
[2020-10-28] MEDS: Finasteride 5 MG TABLET PO (08:48)
[2020-10-28] MEDS: Benztropine Mesylate 1 MG TABLET PO (08:49)
[2020-10-28] MEDS: Omeprazole 20 MG CAPSULE.DR PO (08:49)
[2020-10-28] MEDS: Mineral Oil/Petrolatum,White 106 GM Tube 1 APPL TOPICAL (08:49)
[2020-10-28] MEDS: OLANZapine ODT 10 MG TAB.RAPDIS 20 MG TRANSLINGU ×2 (08:49→20:09)
--- NOTE | 2020-10-28 20:29 | P.PNPSI_ITS ---
Subjective Subjective Date of Service: 10/28/20 Reason For Visit: psychosis Subjective Notes: Conditional Voluntary Healthcare Proxy: No Guardianship: No Medical Problems Affecting Mental Status: No Interim History: Pt continues with variable sx and MSE-is compliant with meds, eating, TEDS, appears engaged, then switches and has perceptual alterations, refuses food, meds, TEDS and appears internally pre-occupied. Discussion with pts brother Mina regarding application for [facility] on 10/27 indicates that this application may be a supportive intervention for pt. [facility] contacted to asses s if pt requires civil commitment for this application to be accepted. Juan reports he is well, denies symptoms or complaints, just wanting to watch TV . Continues on one to one specialing. Medication Compliance: Intermittent Side effects from medications: No Attending Groups: No Review of Systems Acute medical concerns: No Medical Review of Systems: unchanged Review of Systems Reports behavioral changes and Reports memory loss Psychiatric: Reports abnormal sleep pattern, Reports behavioral changes, Reports change in appetite, Reports difficulty concentrating, Reports auditory hallucin ations, Reports irritability, Reports anhedonia, Reports memory loss, Reports mood swings, Reports paranoia and Reports visual hallucinations Mental Status Exam Mental Status Exam Patient Appearance: Fatigued (eyes glazed, looks through people, decrease focus) Patient Orientation: Person and Place Level of Consciousness: Awake and Alert Patient Behavior: Guarded, Suspicious, Resistive to Care, Avoidant, Fatigued, Distractible, Isolative and Poor Eye Contact Mood Description: Constricted Affect Description: Constricted Patient Cognition Impaired: Yes Ability to Follow Directions: Fair Speech Pattern: Perseverating, Spontaneous Speech, Soft-Spoken, Delayed and Long Pauses Memory Description: Remote Impaired and Episodic Impaired Hallucinations: Auditory and Visual Delusions: Paranoid Ideation and Present Perceptual Disturbances: Depersonalization and Derealization Thought Process: Distracted Thought Content: positive for Perseveration and positive for Thought Blocking Depressive Symptoms: Insomnia, Increased Irritability, Changes in Appetite, Loss of Energy and Difficulty Concentrating Judgement: Poor Diagnostics Vital Signs (24Hr): Body Mass Index 38.4 Labs Results: 10/27/20 08:18 10/23/20 08:18 Labs: Laboratory Results - last 48 hr 10/27/20 08:18 WBC 11.3 H RBC 4.08 L Hgb 10.8 L Hct 33.7 L MCV 82.6 MCH 26.5 L MCHC 32.0 RDW 15.8 Plt Count 283 MPV 9.8 Immature Gran % (Auto) 0.7 H Neut % (Auto) 71.1 Lymph % (Auto) 17.6 L [place] % (Auto) 6.3 Eos % (Auto) 3.9 Baso % (Auto) 0.4 Lymph # (Auto) 2.0 [place] # (Auto) 0.7 Eos # (Auto) 0.4 Baso # (Auto) 0.0 Abs Immat Gran (auto) 0.08 H Absolute Neuts (auto) 8.0 Absolute Nucleated RBC 0.000 Nucleated RBC % (auto) 0.0 Imaging Radiology Impressions: ITS Impressions KUB X-Ray 07/22/20 17:13 IMPRESSION: Moderate volume of stool scattered in colon. No bowel obstruction. Medications Medications Current Medications Generic Name Dose Route Start Last Admin Trade Name Freq PRN Reason Stop Dose Admin Acetaminophen 650 mg 07/23/20 21:13 10/22/20 00:22 Acetaminophen 325 Mg Tablet PO 650 mg Q6H PRN Administration Headache/Pain Mild Scale (1-3) Al Hydroxide/Mg Hydroxide 30 ml 07/23/20 21:13 Magnesium Hydrox/Alum Hydrox 30 Ml Oral.Susp PO Q6H PRN Heartburn/Nausea Atorvastatin Calcium 80 mg 07/23/20 21:00 10/28/20 20:07 Atorvastatin Calcium 80 Mg Tablet PO Not Given BEDTIME [facility] Benztropine Mesylate 1 mg 10/08/20 21:00 10/28/20 20:08 Benztropine Mesylate 1 Mg Tablet PO Not Given BID [facility] Clozapine 25 mg 10/08/20 09:00 10/28/20 08:48 Clozapine 25 Mg Tablet PO 25 mg DAILY [facility] Administration Enoxaparin Sodium 40 mg 10/07/20 15:00 10/28/20 14:03 Enoxaparin Sodium 40 Mg/0.4 Ml Syringe SUBCUT Not Given Q24H [facility] Ferrous Sulfate 324 mg 09/02/20 09:00 10/28/20 08:48 Ferrous Sulfate 324 Mg Tablet.Dr PO 324 mg DAILY [facility] Administration Finasteride 5 mg 07/23/20 17:00 10/28/20 08:48 Finasteride 5 Mg Tablet PO 5 mg DAILY [facility] Administration Hydroxyzine HCl 25 mg 07/23/20 21:13 08/17/20 03:00 Hydroxyzine Hcl 25 Mg Tablet PO 25 mg BEDTIME PRN Administration Anxiety Loperamide HCl 2 mg 07/24/20 15:43 07/24/20 15:54 Loperamide Hcl 2 Mg Capsule PO 2 mg Q4H PRN Administration Diarrhea Lorazepam 1 mg 10/17/20 17:09 10/22/20 03:41 Lorazepam 1 Mg Tablet PO 1 mg Q4H PRN Administration agitation Magnesium Hydroxide 30 ml 07/23/20 21:13 Milk Of Magnesia 30 Ml Oral.Susp PO DAILY PRN Constipation Metformin HCl 500 mg 08/14/20 17:00 10/28/20 17:02 Metformin Hcl 500 Mg Tablet PO Not Given BIDWM [facility] Metoprolol Succinate 50 mg 10/16/20 13:00 10/28/20 08:49 Metoprolol Succinate Er 50 Mg Tab.Er.24h PO Not Given DAILY [facility] Protocol Multi-Ingred Cream/Lotion/Oil/Oint 1 appl 07/24/20 21:00 10/28/20 20:08 Mineral Oil/Petrolatum,White 106 Gm Tube TOPICAL Not Given BID [facility] Multi-Ingred Cream/Lotion/Oil/Oint 1 appl 10/09/20 21:00 10/28/20 20:08 Mineral Oil/Petrolatum,White 106 Gm Tube TOPICAL Not Given BID [facility] Multivitamins/Minerals 1 tab 09/25/20 13:30 10/28/20 08:49 Multivitamin With Minerals Tablet PO 1 tab DAILY [facility] Administration Patient Own 1 each 08/14/20 10:27 08/14/20 12:06 Medication (Thera PO 1 each Breath Dry Mouth Q4H PRN Administration Lozenge) Dry Mouth Patient Own 1 each 08/14/20 10:30 10/28/20 20:08 Medication (Biotene PO Not Given 15 Ml) BID [facility] Nystatin 1 appl 07/26/20 19:25 10/28/20 08:49 Nystatin Cream 15 Gm Tube TOPICAL Not Given DAILY [facility] Protocol Olanzapine 20 mg 10/23/20 12:18 10/27/20 21:30 Olanzapine 10 Mg Vial IM 20 mg BID PRN Administration if pt ref po zydis per jim Olanzapine 20 mg 10/23/20 21:00 10/28/20 20:09 Olanzapine Odt 10 Mg Tab.Rapdis TRANSLINGU 20 mg BID [facility] Administration Omeprazole 20 mg 05/20/21 06:30 10/28/20 08:49 Omeprazole 20 Mg Capsule. PO 20 mg DAILY@0630 [facility] Administration Ondansetron HCl 4 mg 08/08/20 09:04 08/08/20 09:27 Ondansetron Odt 4 Mg Tab.Rapdis TRANSLINGU 4 mg Q6H PRN Administration Nausea Saliva Substitute 1 spray 08/12/20 15:06 Dry Mouth [place] 30 Ml [place] MUCOUS MEM Q2H PRN [place]outh Trazodone HCl 50 mg 07/23/20 21:13 10/27/20 02:20 Trazodone Hcl 50 Mg Tablet PO 50 mg BEDTIME PRN Administration Insomnia Vitamin D 50 mcg 07/23/20 21:00 10/28/20 20:08 Cholecalciferol (Vitamin D3) 25 Mcg Tablet PO Not Given BEDTIME [facility] Allergies Allergies Allergy/AdvReac Type Severity Reaction Status Date / Time No Known Allergies Allergy Verified 07/21/20 16:39 Assessment & Plan Assessment & Plan (1) Schizophrenia, paranoid, subchronic with acute exacerbation: Status: Acute Code(s): F20.0 - Paranoid schizophrenia Assessment and Plan: Continue with plan below: Continue Zydis 20 mg bid. If pt refuses Zyprexa 20 mg bid IM. Lorazepam 1 mg q 4 hours prn agitation. Clozaril 25 mg daily. Pt does not want to titrate as he believes Clozaril caused side effects which were intolerable. conintue to encourage moving/ standing/walking Focus with pt on discharge related activities. Possible [employer] application. Team is reviewing with [facility]. Assessment and Plan: No changes in medication today, med adherent and tolerating them well. Greater than 50% of the session was spent on counseling and/or coordination of care Reason for contiued inpatient stay Substantial Risk for: harm to self, harm to others, inability to function, rapid decompensation and med/psych decompensation
[2020-10-29] MEDS: traZODone HCL 50 MG TABLET PO (01:02)
[2020-10-29] MEDS: Ferrous Sulfate 324 MG TABLET.DR PO (08:50)
[2020-10-29] MEDS: Finasteride 5 MG TABLET PO (08:50)
[2020-10-29] MEDS: Benztropine Mesylate 1 MG TABLET PO (08:50)
[2020-10-29] MEDS: OLANZapine ODT 10 MG TAB.RAPDIS 20 MG TRANSLINGU ×2 (08:50→20:48)
[2020-10-29] MEDS: cloZAPine 25 MG TABLET PO (08:50)
[2020-10-29] MEDS: metFORMIN HCl 500 MG TABLET PO (08:50)
[2020-10-29] MEDS: Omeprazole 20 MG CAPSULE.DR PO (08:50)
[2020-10-29] MEDS: Mineral Oil/Petrolatum,White 106 GM Tube 1 APPL TOPICAL (08:50)
--- NOTE | 2020-10-29 17:54 | P.PNPSI_ITS ---
Subjective Subjective Date of Service: 10/29/20 Reason For Visit: psychosis Subjective Notes: Conditional Voluntary Healthcare Proxy: No Guardianship: Yes (calderon fernandez) Medical Problems Affecting Mental Status: No Interim History: Continues on one to one. Responsive to interaction. Does not initiate dialogue. Focus on television and is blunted. Denies sx or complaints. Eye contact darting. Denies perceptual alterations, however, it appears that he is focusing on. Appetite improved today. Medication Compliance: Yes (psychiatric medications only) Side effects from medications: No Attending Groups: No Review of Systems Acute medical concerns: No Medical Review of Systems: unchanged Review of Systems Reports behavioral changes Psychiatric: Reports behavioral changes, Reports change in appetite, Reports depression, Reports difficulty concentrating, Reports auditory hallucinations, Reports irritability, Reports paranoia and Reports visual hallucinations Diagnostics Vital Signs (24Hr): Body Mass Index 38.4 Labs Results: 10/27/20 08:18 10/23/20 08:18 Imaging Radiology Impressions: ITS Impressions KUB X-Ray 07/22/20 17:13 IMPRESSION: Moderate volume of stool scattered in colon. No bowel obstruction. Medications Medications Current Medications Generic Name Dose Route Start Last Admin Trade Name Freq PRN Reason Stop Dose Admin Acetaminophen 650 mg 07/23/20 21:13 10/22/20 00:22 Acetaminophen 325 Mg Tablet PO 650 mg Q6H PRN Administration Headache/Pain Mild Scale (1-3) Al Hydroxide/Mg Hydroxide 30 ml 07/23/20 21:13 Magnesium Hydrox/Alum Hydrox 30 Ml Oral.Susp PO Q6H PRN Heartburn/Nausea Atorvastatin Calcium 80 mg 07/23/20 21:00 10/28/20 20:07 Atorvastatin Calcium 80 Mg Tablet PO Not Given BEDTIME [facility] Benztropine Mesylate 1 mg 10/08/20 21:00 10/29/20 08:50 Benztropine Mesylate 1 Mg Tablet PO 1 mg BID [facility] Administration Clozapine 25 mg 10/08/20 09:00 10/29/20 08:50 Clozapine 25 Mg Tablet PO 25 mg DAILY [facility] Administration Enoxaparin Sodium 40 mg 10/07/20 15:00 10/29/20 13:46 Enoxaparin Sodium 40 Mg/0.4 Ml Syringe SUBCUT Not Given Q24H [facility] Ferrous Sulfate 324 mg 09/02/20 09:00 10/29/20 08:50 Ferrous Sulfate 324 Mg Tablet. PO 324 mg DAILY [facility] Administration Finasteride 5 mg 07/23/20 17:00 10/29/20 08:50 Finasteride 5 Mg Tablet PO 5 mg DAILY [facility] Administration Hydroxyzine HCl 25 mg 07/23/20 21:13 08/17/20 03:00 Hydroxyzine Hcl 25 Mg Tablet PO 25 mg BEDTIME PRN Administration Anxiety Loperamide HCl 2 mg 07/24/20 15:43 07/24/20 15:54 Loperamide Hcl 2 Mg Capsule PO 2 mg Q4H PRN Administration Diarrhea Magnesium Hydroxide 30 ml 07/23/20 21:13 Milk Of Magnesia 30 Ml Oral.Susp PO DAILY PRN Constipation Metformin HCl 500 mg 08/14/20 17:00 10/29/20 08:50 Metformin Hcl 500 Mg Tablet PO 500 mg BIDWM [facility] Administration Metoprolol Succinate 50 mg 10/16/20 13:00 10/29/20 08:51 Metoprolol Succinate Er 50 Mg Tab.Er.24h PO Not Given DAILY [facility] Protocol Multi-Ingred Cream/Lotion/Oil/Oint 1 appl 07/24/20 21:00 10/29/20 08:50 Mineral Oil/Petrolatum,White 106 Gm Tube TOPICAL Not Given BID [facility] Multi-Ingred Cream/Lotion/Oil/Oint 1 appl 10/09/20 21:00 10/29/20 08:50 Mineral Oil/Petrolatum,White 106 Gm Tube TOPICAL 1 appl BID [facility] Administration Multivitamins/Minerals 1 tab 09/25/20 13:30 10/29/20 08:50 Multivitamin With Minerals Tablet PO 1 tab DAILY [facility] Administration Patient Own 1 each 08/14/20 10:27 08/14/20 12:06 Medication (Thera PO 1 each Breath Dry Mouth Q4H PRN Administration Lozenge) Dry Mouth Patient Own 1 each 08/14/20 10:30 10/29/20 08:51 Medication (Biotene PO Not Given 15 Ml) BID [facility] Nystatin 1 appl 07/26/20 19:25 10/29/20 08:51 Nystatin Cream 15 Gm Tube TOPICAL Not Given DAILY [facility] Protocol Olanzapine 20 mg 10/23/20 12:18 10/27/20 21:30 Olanzapine 10 Mg Vial IM 20 mg BID PRN Administration if pt ref po zydis rafy fernandez Olanzapine 20 mg 10/23/20 21:00 10/29/20 08:50 Olanzapine Odt 10 Mg Tab.Rapdis TRANSLINGU 20 mg BID [facility] Administration Omeprazole 20 mg 07/24/20 06:30 10/29/20 08:50 Omeprazole 20 Mg Capsule. PO 20 mg DAILY@0630 [facility] Administration Ondansetron HCl 4 mg 08/08/20 09:04 08/08/20 09:27 Ondansetron Odt 4 Mg Tab.Rapdis TRANSLINGU 4 mg Q6H PRN Administration Nausea Saliva Substitute 1 spray 08/12/20 15:06 Dry Mouth [place] 30 Ml [place] MUCOUS MEM Q2H PRN Dry Mouth Trazodone HCl 50 mg 07/23/20 21:13 10/29/20 01:02 Trazodone Hcl 50 Mg Tablet PO 50 mg BEDTIME PRN Administration Insomnia Vitamin D 50 mcg 07/23/20 21:00 10/28/20 20:08 Cholecalciferol (Vitamin D3) 25 Mcg Tablet PO Not Given BEDTIME [facility] Allergies Allergies Allergy/AdvReac Type Severity Reaction Status Date / Time No Known Allergies Allergy Verified 07/21/20 16:39 Assessment & Plan Assessment & Plan (1) Schizophrenia, paranoid, subchronic with acute exacerbation: Status: Acute Code(s): F20.0 - Paranoid schizophrenia Assessment and Plan: Continue with plan below: Continue Zydis 20 mg bid. If pt refuses Zyprexa 20 mg bid IM. Lorazepam 1 mg q 4 hours prn agitation. Clozaril 25 mg daily. Pt does not want to titrate as he believes Clozaril caused side effects which were intolerable. conintue to encourage moving/ standing/walking Focus with pt on discharge related activities. Possible [employer] application. Team is reviewing with [facility]. Assessment and Plan: No changes in medication today, med adherent and tolerating them well. Greater than 50% of the session was spent on counseling and/or coordination of care Reason for contiued inpatient stay Substantial Risk for: harm to self, harm to others, inability to function, rapid decompensation and med/psych decompensation
[2020-10-30] MEDS: traZODone HCL 50 MG TABLET PO (01:25)
[2020-10-30] MEDS: Ferrous Sulfate 324 MG TABLET.DR PO (08:01)
[2020-10-30] MEDS: cloZAPine 25 MG TABLET PO (08:01)
[2020-10-30] MEDS: OLANZapine ODT 10 MG TAB.RAPDIS 20 MG TRANSLINGU ×2 (08:01→20:32)
--- NOTE | 2020-10-30 21:30 | HO.PSYCHPN ---
Subjective Subjective Date of Service: 10/30/20 Reason For Visit: psychosis Subjective Notes: Section 7 Healthcare Proxy: Yes Guardianship: Yes ([facility]) Medical Problems Affecting Mental Status: No Interim History: Juan continues with variable treatment compliance. As this has been over 30 days, with four trials and no real improvement, Section VII filed for civil commitment for [facility] care. Pt tearful when this information was given to him. Family and out patient team will testify. It remains unclear if this variable response may be in part due to pt's having COVID and responding differently to medication intervention. He continues to ask not to use Clozaril as his primary medication, even though this has helped him in the past. Medication Compliance: Yes Side effects from medications: No Attending Groups: No Review of Systems Acute medical concerns: No Medical Review of Systems: unchanged Review of Systems Reports behavioral changes Psychiatric: Reports behavioral changes, Reports change in appetite, Reports depression, Reports difficulty concentrating, Reports auditory hallucinations, Reports irritability, Reports anhedonia, Reports mood swings and Reports visual hallucinations Mental Status Exam Mental Status Exam Patient Appearance: Appropriate Patient Orientation: Person Level of Consciousness: Alert Patient Behavior: Guarded, Suspicious, Avoidant and Poor Eye Contact Mood Description: Suspicious and Withdrawn Affect Description: Suspicious, Withdrawn and Constricted Patient Cognition Impaired: Yes Ability to Follow Directions: Fair Speech Pattern: Spontaneous Speech Memory Description: Remote Impaired and Episodic Impaired Hallucinations: Auditory and Visual Delusions: Paranoid Ideation and Present Perceptual Disturbances: Depersonalization and Derealization Thought Process: Distracted and Rumination Thought Content: positive for [place], positive for [place] and positive for Thought Blocking Depressive Symptoms: Difficulty Sleeping, Changes in Appetite, Increased Fatigue, Loss of Energy and Difficulty Concentrating Judgement: Poor Diagnostics Vital Signs (24Hr): Body Mass Index 38.4 Labs Results: 10/27/20 08:18 10/23/20 08:18 Imaging Radiology Impressions: ITS Impressions KUB X-Ray 07/22/20 17:13 IMPRESSION: Moderate volume of stool scattered in colon. No bowel obstruction. Medications Medications Current Medications Generic Name Dose Route Start Last Admin Trade Name Freq PRN Reason Stop Dose Admin Acetaminophen 650 mg 07/23/20 21:13 10/22/20 00:22 Acetaminophen 325 Mg Tablet PO 650 mg Q6H PRN Administration Headache/Pain Mild Scale (1-3) Al Hydroxide/Mg Hydroxide 30 ml 07/23/20 21:13 Magnesium Hydrox/Alum Hydrox 30 Ml Oral.Susp PO Q6H PRN Heartburn/Nausea Atorvastatin Calcium 80 mg 07/23/20 21:00 10/30/20 20:30 Atorvastatin Calcium 80 Mg Tablet PO Not Given BEDTIME [facility] Benztropine Mesylate 1 mg 10/08/20 21:00 10/30/20 20:30 Benztropine Mesylate 1 Mg Tablet PO Not Given BID [facility] Clozapine 25 mg 10/08/20 09:00 10/30/20 08:01 Clozapine 25 Mg Tablet PO 25 mg DAILY [facility] Administration Enoxaparin Sodium 40 mg 10/07/20 15:00 10/30/20 14:52 Enoxaparin Sodium 40 Mg/0.4 Ml Syringe SUBCUT Not Given Q24H [facility] Ferrous Sulfate 324 mg 09/02/20 09:00 10/30/20 08:01 Ferrous Sulfate 324 Mg Tablet. PO 324 mg DAILY [facility] Administration Finasteride 5 mg 07/23/20 17:00 10/30/20 08:14 Finasteride 5 Mg Tablet PO Not Given DAILY [facility] Hydroxyzine HCl 25 mg 07/23/20 21:13 08/17/20 03:00 Hydroxyzine Hcl 25 Mg Tablet PO 25 mg BEDTIME PRN Administration Anxiety Loperamide HCl 2 mg 07/24/20 15:43 07/24/20 15:54 Loperamide Hcl 2 Mg Capsule PO 2 mg Q4H PRN Administration Diarrhea Magnesium Hydroxide 30 ml 07/23/20 21:13 Milk Of Magnesia 30 Ml Oral.Susp PO DAILY PRN Constipation Metformin HCl 500 mg 08/14/20 17:00 10/30/20 17:10 Metformin Hcl 500 Mg Tablet PO Not Given BIDWM [facility] Metoprolol Succinate 50 mg 10/16/20 13:00 10/30/20 08:15 Metoprolol Succinate Er 50 Mg Tab.Er.24h PO Not Given DAILY [facility] Protocol Multi-Ingred Cream/Lotion/Oil/Oint 1 appl 07/24/20 21:00 10/30/20 20:31 Mineral Oil/Petrolatum,White 106 Gm Tube TOPICAL Not Given BID [facility] Multi-Ingred Cream/Lotion/Oil/Oint 1 appl 10/09/20 21:00 10/30/20 20:31 Mineral Oil/Petrolatum,White 106 Gm Tube TOPICAL Not Given BID [facility] Multivitamins/Minerals 1 tab 09/25/20 13:30 10/30/20 08:16 Multivitamin With Minerals Tablet PO Not Given DAILY [facility] Patient Own 1 each 08/14/20 10:27 08/14/20 12:06 Medication (Thera PO 1 each Breath Dry Mouth Q4H PRN Administration Lozenge) Dry Mouth Patient Own 1 each 08/14/20 10:30 10/30/20 20:31 Medication (Biotene PO Not Given 15 Ml) BID [facility] Nystatin 1 appl 07/26/20 19:25 10/30/20 08:16 Nystatin Cream 15 Gm Tube TOPICAL Not Given DAILY [facility] Protocol Olanzapine 20 mg 10/23/20 12:18 10/27/20 21:30 Olanzapine 10 Mg Vial IM 20 mg BID PRN Administration if pt ref po zydis per jim Olanzapine 20 mg 10/23/20 21:00 10/30/20 20:32 Olanzapine Odt 10 Mg Tab.Rapdis TRANSLINGU 20 mg BID [facility] Administration Omeprazole 20 mg 07/24/20 06:30 10/30/20 08:09 Omeprazole 20 Mg Capsule.Dr PO Not Given DAILY@0630 [facility] Ondansetron HCl 4 mg 08/08/20 09:04 08/08/20 09:27 Ondansetron Odt 4 Mg Tab.Rapdis TRANSLINGU 4 mg Q6H PRN Administration Nausea Saliva Substitute 1 spray 08/12/20 15:06 Dry Mouth [place] 30 Ml [place] MUCOUS MEM Q2H PRN [place]outh Trazodone HCl 50 mg 07/23/20 21:13 10/30/20 01:25 Trazodone Hcl 50 Mg Tablet PO 50 mg BEDTIME PRN Administration Insomnia Vitamin D 50 mcg 07/23/20 21:00 10/30/20 20:30 Cholecalciferol (Vitamin D3) 25 Mcg Tablet PO Not Given BEDTIME [facility] Allergies Allergies Allergy/AdvReac Type Severity Reaction Status Date / Time No Known Allergies Allergy Verified 07/21/20 16:39 Assessment & Plan Assessment & Plan (1) Schizophrenia, paranoid, subchronic with acute exacerbation: Status: Acute Code(s): F20.0 - Paranoid schizophrenia Assessment and Plan: Continue with plan below: Continue Zydis 20 mg bid. If pt refuses Zyprexa 20 mg bid IM. Lorazepam 1 mg q 4 hours prn agitation. Clozaril 25 mg daily. Pt does not want to titrate as he believes Clozaril caused side effects which were intolerable. conintue to encourage moving/ standing/walking Focus with pt on discharge related activities. Section VII filed. Court 11/06/20. CHD and family will testify regarding their concerns. Assessment and Plan: No changes in plan of care today. Greater than 50% of the session was spent on counseling and/or coordination of care Informed Consent: does not understand Reason for contiued inpatient stay Substantial Risk for: harm to self, harm to others, inability to function, rapid decompensation and med/psych decompensation
[2020-10-31] MEDS: cloZAPine 25 MG TABLET PO (08:56)
[2020-10-31] MEDS: Ferrous Sulfate 324 MG TABLET.DR PO (08:56)
[2020-10-31] MEDS: OLANZapine 10 MG VIAL 20 MG IM (09:38)
[2020-10-31 18:00] VITALS: BP 146/84; PULSE 101
--- NOTE | 2020-10-31 18:00 | P.PNPSI_ITS ---
Subjective Subjective Date of Service: 10/31/20 Reason For Visit: psychosis Subjective Notes: Conditional Voluntary Healthcare Proxy: No Guardianship: Yes ([facility]) Medical Problems Affecting Mental Status: No Interim History: Juan appears in a more consistent mood today. He appears calm, alert, asks for orange juice and enjoyed a visit with his brother and sister who brought him in ice cream. He refused a.m. po zydis, IM given accepted clozapine. Medication Compliance: Intermittent Side effects from medications: No Attending Groups: No Review of Systems Acute medical concerns: No Medical Review of Systems: unchanged Review of Systems Reports behavioral changes Psychiatric: Reports behavioral changes, Reports auditory hallucinations, Reports anhedonia, Reports paranoia and Reports visual hallucinations Mental Status Exam Mental Status Exam Patient Appearance: Appropriate Patient Orientation: Person Level of Consciousness: Alert Patient Behavior: Guarded, Suspicious, Avoidant and Poor Eye Contact Mood Description: Suspicious and Withdrawn Affect Description: Suspicious, Withdrawn and Constricted Patient Cognition Impaired: Yes Ability to Follow Directions: Fair Speech Pattern: Spontaneous Speech Memory Description: Remote Impaired and Episodic Impaired Hallucinations: Auditory and Visual Delusions: Paranoid Ideation and Present Perceptual Disturbances: Depersonalization and Derealization Thought Process: Distracted and Rumination Thought Content: positive for [place], positive for [place] and positive for Thought Blocking Depressive Symptoms: Difficulty Sleeping, Changes in Appetite, Increased Fatigue, Loss of Energy and Difficulty Concentrating Judgement: Poor Diagnostics Vital Signs (24Hr): Body Mass Index 38.4 Labs Results: 10/27/20 08:18 10/23/20 08:18 Imaging Radiology Impressions: ITS Impressions KUB X-Ray 07/22/20 17:13 IMPRESSION: Moderate volume of stool scattered in colon. No bowel obstruction. Medications Medications Current Medications Generic Name Dose Route Start Last Admin Trade Name Freq PRN Reason Stop Dose Admin Acetaminophen 650 mg 07/23/20 21:13 10/22/20 00:22 Acetaminophen 325 Mg Tablet PO 650 mg Q6H PRN Administration Headache/Pain Mild Scale (1-3) Al Hydroxide/Mg Hydroxide 30 ml 07/23/20 21:13 Magnesium Hydrox/Alum Hydrox 30 Ml Oral.Susp PO Q6H PRN Heartburn/Nausea Atorvastatin Calcium 80 mg 07/23/20 21:00 10/30/20 20:30 Atorvastatin Calcium 80 Mg Tablet PO Not Given BEDTIME [facility] Benztropine Mesylate 1 mg 10/08/20 21:00 10/31/20 10:45 Benztropine Mesylate 1 Mg Tablet PO Not Given BID [facility] Clozapine 25 mg 10/08/20 09:00 10/31/20 08:56 Clozapine 25 Mg Tablet PO 25 mg DAILY [facility] Administration Enoxaparin Sodium 40 mg 10/07/20 15:00 10/31/20 14:27 Enoxaparin Sodium 40 Mg/0.4 Ml Syringe SUBCUT Not Given Q24H [facility] Ferrous Sulfate 324 mg 09/02/20 09:00 10/31/20 08:56 Ferrous Sulfate 324 Mg Tablet. PO 324 mg DAILY [facility] Administration Finasteride 5 mg 07/23/20 17:00 10/31/20 10:45 Finasteride 5 Mg Tablet PO Not Given DAILY [facility] Hydroxyzine HCl 25 mg 07/23/20 21:13 08/17/20 03:00 Hydroxyzine Hcl 25 Mg Tablet PO 25 mg BEDTIME PRN Administration Anxiety Loperamide HCl 2 mg 07/24/20 15:43 07/24/20 15:54 Loperamide Hcl 2 Mg Capsule PO 2 mg Q4H PRN Administration Diarrhea Magnesium Hydroxide 30 ml 07/23/20 21:13 Milk Of Magnesia 30 Ml Oral.Susp PO DAILY PRN Constipation Metformin HCl 500 mg 08/14/20 17:00 10/31/20 16:12 Metformin Hcl 500 Mg Tablet PO Not Given BIDWM [facility] Metoprolol Succinate 50 mg 10/16/20 13:00 10/31/20 10:45 Metoprolol Succinate Er 50 Mg Tab.Er.24h PO Not Given DAILY [facility] Protocol Multi-Ingred Cream/Lotion/Oil/Oint 1 appl 07/24/20 21:00 10/31/20 10:46 Mineral Oil/Petrolatum,White 106 Gm Tube TOPICAL Not Given BID [facility] Multi-Ingred Cream/Lotion/Oil/Oint 1 appl 10/09/20 21:00 10/31/20 10:46 Mineral Oil/Petrolatum,White 106 Gm Tube TOPICAL Not Given BID [facility] Multivitamins/Minerals 1 tab 09/25/20 13:30 10/31/20 10:46 Multivitamin With Minerals Tablet PO Not Given DAILY [facility] Patient Own 1 each 08/14/20 10:27 08/14/20 12:06 Medication (Thera PO 1 each Breath Dry Mouth Q4H PRN Administration Lozenge) Dry Mouth Patient Own 1 each 08/14/20 10:30 10/31/20 10:47 Medication (Biotene PO Not Given 15 Ml) BID [facility] Nystatin 1 appl 07/26/20 19:25 10/31/20 10:46 Nystatin Cream 15 Gm Tube TOPICAL Not Given DAILY [facility] Protocol Olanzapine 20 mg 10/23/20 12:18 10/31/20 09:38 Olanzapine 10 Mg Vial IM 20 mg BID PRN Administration if pt ref po zydis per jim Olanzapine 20 mg 10/23/20 21:00 10/31/20 09:39 Olanzapine Odt 10 Mg Tab.Rapdis TRANSLINGU Not Given BID [facility] Omeprazole 20 mg 07/24/20 06:30 10/31/20 09:01 Omeprazole 20 Mg Capsule.Dr PO Not Given DAILY@0630 [facility] Ondansetron HCl 4 mg 08/08/20 09:04 08/08/20 09:27 Ondansetron Odt 4 Mg Tab.Rapdis TRANSLINGU 4 mg Q6H PRN Administration Nausea Saliva Substitute 1 spray 08/12/20 15:06 Dry Mouth [place] 30 Ml [place] MUCOUS MEM Q2H PRN [place]outh Trazodone HCl 50 mg 07/23/20 21:13 10/30/20 01:25 Trazodone Hcl 50 Mg Tablet PO 50 mg BEDTIME PRN Administration Insomnia Vitamin D 50 mcg 07/23/20 21:00 10/30/20 20:30 Cholecalciferol (Vitamin D3) 25 Mcg Tablet PO Not Given BEDTIME [facility] Allergies Allergies Allergy/AdvReac Type Severity Reaction Status Date / Time No Known Allergies Allergy Verified 07/21/20 16:39 Assessment & Plan Assessment & Plan (1) Schizophrenia, paranoid, subchronic with acute exacerbation: Status: Acute Code(s): F20.0 - Paranoid schizophrenia Assessment and Plan: Continue with plan below: Continue Zydis 20 mg bid. If pt refuses Zyprexa 20 mg bid IM. Lorazepam 1 mg q 4 hours prn agitation. Clozaril 25 mg daily. Pt does not want to titrate as he believes Clozaril caused side effects which were intolerable. conintue to encourage moving/ standing/walking Focus with pt on discharge related activities. Section VII filed. Court 9/2/21. CHD and family will testify regarding their concerns. Olanzapine level. Assessment and Plan: No changes in plan of care today. Greater than 50% of the session was spent on counseling and/or coordination of care Reason for contiued inpatient stay Substantial Risk for: harm to self, harm to others, inability to function, rapid decompensation and med/psych decompensation
[2020-10-31] MEDS: OLANZapine ODT 10 MG TAB.RAPDIS 20 MG TRANSLINGU (20:08)
[2020-11-01] MEDS: traZODone HCL 50 MG TABLET PO (00:47)
[2020-11-01] MEDS: OLANZapine ODT 10 MG TAB.RAPDIS 20 MG TRANSLINGU ×2 (08:30→20:59)
[2020-11-01] MEDS: Benztropine Mesylate 1 MG TABLET PO (08:30)
[2020-11-01] MEDS: cloZAPine 25 MG TABLET PO (08:30)
[2020-11-01] MEDS: Ferrous Sulfate 324 MG TABLET.DR PO (08:30)
[2020-11-01] MEDS: metFORMIN HCl 500 MG TABLET PO (08:30)
[2020-11-01] MEDS: Omeprazole 20 MG CAPSULE.DR PO (08:30)
[2020-11-01] MEDS: Finasteride 5 MG TABLET PO (08:30)
[2020-11-01] MEDS: Mineral Oil/Petrolatum,White 106 GM Tube 1 APPL TOPICAL (08:31)
--- NOTE | 2020-11-01 22:08 | P.PNPSI_ITS ---
Subjective Subjective Date of Service: 11/02/20 Reason For Visit: psychosis Subjective Notes: Conditional Voluntary Interim History: Accepting of PO medications, in milieu with one to one, minimal interaction with peers but with more acuity in his observation of others is noted today. States he is feeling OK. Medication Compliance: Yes Attending Groups: No Review of Systems Acute medical concerns: No Medical Review of Systems: unchanged Review of Systems Psychiatric: Reports auditory hallucinations, Reports paranoia and Reports visual hallucinations Mental Status Exam Mental Status Exam Patient Appearance: Appropriate Patient Orientation: Person Level of Consciousness: Alert Patient Behavior: Guarded, Suspicious, Avoidant and Poor Eye Contact Mood Description: Suspicious and Withdrawn Affect Description: Suspicious, Withdrawn and Constricted Patient Cognition Impaired: Yes Ability to Follow Directions: Fair Speech Pattern: Spontaneous Speech Memory Description: Remote Impaired and Episodic Impaired Hallucinations: Auditory and Visual Delusions: Paranoid Ideation and Present Perceptual Disturbances: Depersonalization and Derealization Thought Process: Distracted and Rumination Thought Content: positive for [place], positive for [place] and positive for Thought Blocking Depressive Symptoms: Difficulty Sleeping, Changes in Appetite, Increased Fatigue, Loss of Energy and Difficulty Concentrating Judgement: Poor Diagnostics Vital Signs (24Hr): Body Mass Index 38.4 Labs Results: 10/27/20 08:18 11/02/20 07:36 Imaging Radiology Impressions: ITS Impressions KUB X-Ray 07/22/20 17:13 IMPRESSION: Moderate volume of stool scattered in colon. No bowel obstruction. Medications Medications Current Medications Generic Name Dose Route Start Last Admin Trade Name Freq PRN Reason Stop Dose Admin Acetaminophen 650 mg 07/23/20 21:13 10/22/20 00:22 Acetaminophen 325 Mg Tablet PO 650 mg Q6H PRN Administration Headache/Pain Mild Scale (1-3) Al Hydroxide/Mg Hydroxide 30 ml 07/23/20 21:13 Magnesium Hydrox/Alum Hydrox 30 Ml Oral.Susp PO Q6H PRN Heartburn/Nausea Atorvastatin Calcium 80 mg 07/23/20 21:00 11/01/20 20:59 Atorvastatin Calcium 80 Mg Tablet PO Not Given BEDTIME [facility] Benztropine Mesylate 1 mg 10/08/20 21:00 11/01/20 20:59 Benztropine Mesylate 1 Mg Tablet PO Not Given BID [facility] Clozapine 25 mg 10/08/20 09:00 11/01/20 08:30 Clozapine 25 Mg Tablet PO 25 mg DAILY [facility] Administration Enoxaparin Sodium 40 mg 10/07/20 15:00 11/01/20 14:43 Enoxaparin Sodium 40 Mg/0.4 Ml Syringe SUBCUT Not Given Q24H [facility] Ferrous Sulfate 324 mg 09/02/20 09:00 11/01/20 08:30 Ferrous Sulfate 324 Mg Tablet. PO 324 mg DAILY [facility] Administration Finasteride 5 mg 07/23/20 17:00 11/01/20 08:30 Finasteride 5 Mg Tablet PO 5 mg DAILY [facility] Administration Hydroxyzine HCl 25 mg 07/23/20 21:13 08/17/20 03:00 Hydroxyzine Hcl 25 Mg Tablet PO 25 mg BEDTIME PRN Administration Anxiety Loperamide HCl 2 mg 07/24/20 15:43 07/24/20 15:54 Loperamide Hcl 2 Mg Capsule PO 2 mg Q4H PRN Administration Diarrhea Magnesium Hydroxide 30 ml 07/23/20 21:13 Milk Of Magnesia 30 Ml Oral.Susp PO DAILY PRN Constipation Metformin HCl 500 mg 08/14/20 17:00 11/01/20 16:16 Metformin Hcl 500 Mg Tablet PO Not Given BIDWM [facility] Metoprolol Succinate 50 mg 10/16/20 13:00 11/01/20 08:31 Metoprolol Succinate Er 50 Mg Tab.Er.24h PO Not Given DAILY [facility] Protocol Multi-Ingred Cream/Lotion/Oil/Oint 1 appl 07/24/20 21:00 11/01/20 20:59 Mineral Oil/Petrolatum,White 106 Gm Tube TOPICAL Not Given BID [facility] Multi-Ingred Cream/Lotion/Oil/Oint 1 appl 10/09/20 21:00 11/01/20 20:59 Mineral Oil/Petrolatum,White 106 Gm Tube TOPICAL Not Given BID [facility] Multivitamins/Minerals 1 tab 09/25/20 13:30 11/01/20 08:30 Multivitamin With Minerals Tablet PO 1 tab DAILY [facility] Administration Patient Own 1 each 08/14/20 10:27 08/14/20 12:06 Medication (Thera PO 1 each Breath Dry Mouth Q4H PRN Administration Lozenge) Dry Mouth Patient Own 1 each 08/14/20 10:30 11/01/20 20:59 Medication (Biotene PO Not Given 15 Ml) BID [facility] Nystatin 1 appl 07/26/20 19:25 11/01/20 08:32 Nystatin Cream 15 Gm Tube TOPICAL Not Given DAILY [facility] Protocol Olanzapine 20 mg 10/23/20 12:18 10/31/20 09:38 Olanzapine 10 Mg Vial IM 20 mg BID PRN Administration if pt ref po zydis [facility] Olanzapine 20 mg 10/23/20 21:00 11/01/20 20:59 Olanzapine Odt 10 Mg Tab.Rapdis TRANSLINGU 20 mg BID [facility] Administration Omeprazole 20 mg 07/24/20 06:30 11/01/20 08:30 Omeprazole 20 Mg Capsule. PO 20 mg DAILY@0630 [facility] Administration Ondansetron HCl 4 mg 08/08/20 09:04 08/08/20 09:27 Ondansetron Odt 4 Mg Tab.Rapdis TRANSLINGU 4 mg Q6H PRN Administration Nausea Saliva Substitute 1 spray 08/12/20 15:06 Dry Mouth [place] 30 Ml [place] MUCOUS MEM Q2H PRN Dry Mouth Trazodone HCl 50 mg 07/23/20 21:13 11/01/20 00:47 Trazodone Hcl 50 Mg Tablet PO 50 mg BEDTIME PRN Administration Insomnia Vitamin D 50 mcg 07/23/20 21:00 11/01/20 21:22 Cholecalciferol (Vitamin D3) 25 Mcg Tablet PO Not Given BEDTIME [facility] Allergies Allergies Allergy/AdvReac Type Severity Reaction Status Date / Time No Known Allergies Allergy Verified 07/21/20 16:39 Assessment & Plan Assessment & Plan (1) Schizophrenia, paranoid, subchronic with acute exacerbation: Status: Acute Code(s): F20.0 - Paranoid schizophrenia Assessment and Plan: Continue with plan below: Continue Zydis 20 mg bid. If pt refuses Zyprexa 20 mg bid IM. Lorazepam 1 mg q 4 hours prn agitation. Clozaril 25 mg daily. Pt does not want to titrate as he believes Clozaril caused side effects which were intolerable. conintue to encourage moving/ standing/walking Olanzapine level. Focus with pt on discharge related activities. Pt has been working with medications since 09/19/20. His progress is variable, slowed. This may be due to his hx of COVID-19. As a result, he will not be able to return to indepedent living soon, and will need a level of rehabilitative care which is not offered in subacute or nursing homes. We will apply for a [facility] admission but need to file for civil commitment prior to this application. Section VII filed. Court 11/06/20. CHD and family will testify regarding their concerns regarding pt's progress and response to [facility]' updates of medication. Assessment and Plan: No changes in plan of care today. Greater than 50% of the session was spent on counseling and/or coordination of care Reason for contiued inpatient stay Substantial Risk for: harm to self, harm to others, inability to function, rapid decompensation and med/psych decompensation
[2020-11-02] MEDS: traZODone HCL 50 MG TABLET PO ×2 (01:22→23:41)
[2020-11-02 08:16] LABS: Anion Gap 13 (12-20); Blood Urea Nitrogen 18 mg/dL (9-16); Calcium 9.3 mg/dL (8.4-10.2); Carbon Dioxide 29 mmol/L (22-29); Chloride 103 mmol/L (96-108); Creatinine Clr Calc Pharmacy 163.6; Estimated Glomerular Filt Rate > 60; Glucose Random 121 mg/dL (60-115); Potassium 4.5 mmol/L (3.3-5.1); Sodium 140 mmol/L (135-145)
[2020-11-02] MEDS: Benztropine Mesylate 1 MG TABLET PO (08:17)
[2020-11-02] MEDS: metFORMIN HCl 500 MG TABLET PO (08:17)
[2020-11-02] MEDS: Finasteride 5 MG TABLET PO (08:17)
[2020-11-02] MEDS: Omeprazole 20 MG CAPSULE.DR PO (08:17)
[2020-11-02] MEDS: Ferrous Sulfate 324 MG TABLET.DR PO (08:17)
[2020-11-02] MEDS: cloZAPine 25 MG TABLET PO (08:17)
[2020-11-02] MEDS: OLANZapine ODT 10 MG TAB.RAPDIS 20 MG TRANSLINGU ×2 (08:17→20:47)
[2020-11-02] MEDS: Mineral Oil/Petrolatum,White 106 GM Tube 1 APPL TOPICAL (09:01)
--- NOTE | 2020-11-02 19:02 | HO.PSYCHPN ---
Subjective Subjective Date of Service: 11/02/20 Reason For Visit: psychosis Interim History: Appears calmer, continues to appear to respond to internal stimuli. Eating, sleeping (used Trazodone). Reports he plans to shower this afternoon. Alert and more attentive in conversation. Review of Systems Acute medical concerns: No Medical Review of Systems: unchanged Review of Systems Psychiatric: Reports auditory hallucinations, Reports paranoia and Reports visual hallucinations Mental Status Exam Mental Status Exam Patient Appearance: Appropriate Patient Orientation: Person Level of Consciousness: Alert Patient Behavior: Guarded, Suspicious, Avoidant and Poor Eye Contact Mood Description: Suspicious and Withdrawn Affect Description: Suspicious, Withdrawn and Constricted Patient Cognition Impaired: Yes Ability to Follow Directions: Fair Speech Pattern: Spontaneous Speech Memory Description: Remote Impaired and Episodic Impaired Hallucinations: Auditory and Visual Delusions: Paranoid Ideation and Present Perceptual Disturbances: Depersonalization and Derealization Thought Process: Distracted and Rumination Thought Content: positive for [place], positive for [place] and positive for Thought Blocking Depressive Symptoms: Difficulty Sleeping, Changes in Appetite, Increased Fatigue, Loss of Energy and Difficulty Concentrating Judgement: Poor Diagnostics Vital Signs (24Hr): Body Mass Index 38.4 Labs Results: 10/27/20 08:18 11/02/20 07:36 Labs: Laboratory Results - last 48 hr 11/02/20 07:36 Sodium 140 Potassium 4.5 Chloride 103 Carbon Dioxide 29 Anion Gap 13 BUN 18 H Creatinine 0.80 Estim Creat Clear Calc 163.6 Estimated GFR > 60 Random Glucose 121 H Calcium 9.3 Imaging Radiology Impressions: ITS Impressions KUB X-Ray 07/22/20 17:13 IMPRESSION: Moderate volume of stool scattered in colon. No bowel obstruction. Medications Medications Current Medications Generic Name Dose Route Start Last Admin Trade Name Freq PRN Reason Stop Dose Admin Acetaminophen 650 mg 07/23/20 21:13 10/22/20 00:22 Acetaminophen 325 Mg Tablet PO 650 mg Q6H PRN Administration Headache/Pain Mild Scale (1-3) Al Hydroxide/Mg Hydroxide 30 ml 07/23/20 21:13 Magnesium Hydrox/Alum Hydrox 30 Ml Oral.Susp PO Q6H PRN Heartburn/Nausea Atorvastatin Calcium 80 mg 07/23/20 21:00 11/01/20 20:59 Atorvastatin Calcium 80 Mg Tablet PO Not Given BEDTIME [facility] Benztropine Mesylate 1 mg 10/08/20 21:00 11/02/20 08:17 Benztropine Mesylate 1 Mg Tablet PO 1 mg BID [facility] Administration Clozapine 25 mg 10/08/20 09:00 11/02/20 08:17 Clozapine 25 Mg Tablet PO 25 mg DAILY [facility] Administration Enoxaparin Sodium 40 mg 10/07/20 15:00 11/02/20 14:35 Enoxaparin Sodium 40 Mg/0.4 Ml Syringe SUBCUT Not Given Q24H [facility] Ferrous Sulfate 324 mg 09/02/20 09:00 11/02/20 08:17 Ferrous Sulfate 324 Mg Tablet.Dr PO 324 mg DAILY [facility] Administration Finasteride 5 mg 07/23/20 17:00 11/02/20 08:17 Finasteride 5 Mg Tablet PO 5 mg DAILY [facility] Administration Hydroxyzine HCl 25 mg 07/23/20 21:13 08/17/20 03:00 Hydroxyzine Hcl 25 Mg Tablet PO 25 mg BEDTIME PRN Administration Anxiety Loperamide HCl 2 mg 07/24/20 15:43 07/24/20 15:54 Loperamide Hcl 2 Mg Capsule PO 2 mg Q4H PRN Administration Diarrhea Magnesium Hydroxide 30 ml 07/23/20 21:13 Milk Of Magnesia 30 Ml Oral.Susp PO DAILY PRN Constipation Metformin HCl 500 mg 08/14/20 17:00 11/02/20 18:57 Metformin Hcl 500 Mg Tablet PO Not Given BIDWM [facility] Metoprolol Succinate 50 mg 10/16/20 13:00 11/02/20 08:20 Metoprolol Succinate Er 50 Mg Tab.Er.24h PO Not Given DAILY [facility] Protocol Multi-Ingred Cream/Lotion/Oil/Oint 1 appl 10/09/20 21:00 11/02/20 09:01 Mineral Oil/Petrolatum,White 106 Gm Tube TOPICAL 1 appl BID [facility] Administration Multivitamins/Minerals 1 tab 09/25/20 13:30 11/02/20 08:17 Multivitamin With Minerals Tablet PO 1 tab DAILY [facility] Administration Patient Own 1 each 08/14/20 10:27 08/14/20 12:06 Medication (Thera PO 1 each Breath Dry Mouth Q4H PRN Administration Lozenge) Dry Mouth Patient Own 1 each 08/14/20 10:30 11/02/20 08:21 Medication (Biotene PO Not Given 15 Ml) BID [facility] Nystatin 1 appl 07/26/20 19:25 11/02/20 08:20 Nystatin Cream 15 Gm Tube TOPICAL Not Given DAILY [facility] Protocol Olanzapine 20 mg 10/23/20 12:18 10/31/20 09:38 Olanzapine 10 Mg Vial IM 20 mg BID PRN Administration if pt ref po zydis rafy fernandez Olanzapine 20 mg 10/23/20 21:00 11/02/20 08:17 Olanzapine Odt 10 Mg Tab.Rapdis TRANSLINGU 20 mg BID [facility] Administration Omeprazole 20 mg 07/24/20 06:30 11/02/20 08:17 Omeprazole 20 Mg Capsule. PO 20 mg DAILY@0630 [facility] Administration Ondansetron HCl 4 mg 08/08/20 09:04 08/08/20 09:27 Ondansetron Odt 4 Mg Tab.Rapdis TRANSLINGU 4 mg Q6H PRN Administration Nausea Saliva Substitute 1 spray 08/12/20 15:06 Dry Mouth [place] 30 Ml [place] MUCOUS MEM Q2H PRN Dry Mouth Trazodone HCl 50 mg 07/23/20 21:13 11/02/20 01:22 Trazodone Hcl 50 Mg Tablet PO 50 mg BEDTIME PRN Administration Insomnia Vitamin D 50 mcg 07/23/20 21:00 11/01/20 21:22 Cholecalciferol (Vitamin D3) 25 Mcg Tablet PO Not Given BEDTIME [facility] Allergies Allergies Allergy/AdvReac Type Severity Reaction Status Date / Time No Known Allergies Allergy Verified 07/21/20 16:39 Assessment & Plan Assessment & Plan (1) Schizophrenia, paranoid, subchronic with acute exacerbation: Status: Acute Code(s): F20.0 - Paranoid schizophrenia Assessment and Plan: Continue with plan below: Continue Zydis 20 mg bid. If pt refuses Zyprexa 20 mg bid IM. Lorazepam 1 mg q 4 hours prn agitation. Clozaril 25 mg daily. Pt does not want to titrate as he believes Clozaril caused side effects which were intolerable. conintue to encourage moving/ standing/walking Olanzapine level. Focus with pt on discharge related activities. Pt has been working with medications since 09/19/20. His progress is variable, slowed. This may be due to his hx of COVID-19. As a result, he will not be able to return to indepedent living soon, and will need a level of rehabilitative care which is not offered in subacute or nursing homes. We will apply for a [facility] admission but need to file for civil commitment prior to this application. Section [address] filed[address] 11/06/20. CHD and family will testify regarding their concerns regarding pt's progress and response to [facility]' updates of medication. Assessment and Plan: No changes in plan of care today. Greater than 50% of the session was spent on counseling and/or coordination of care Informed Consent: does not understand Reason for contiued inpatient stay Substantial Risk for: harm to self, harm to others, inability to function and rapid decompensation
[2020-11-03] MEDS: traZODone HCL 50 MG TABLET PO (02:48)
[2020-11-03] MEDS: OLANZapine ODT 10 MG TAB.RAPDIS 20 MG TRANSLINGU (08:47)
[2020-11-03] MEDS: metFORMIN HCl 500 MG TABLET PO (08:47)
[2020-11-03] MEDS: Finasteride 5 MG TABLET PO (08:47)
[2020-11-03] MEDS: cloZAPine 25 MG TABLET PO (08:47)
[2020-11-03] MEDS: Benztropine Mesylate 1 MG TABLET PO ×2 (08:47→21:17)
[2020-11-03] MEDS: Ferrous Sulfate 324 MG TABLET.DR PO (08:47)
[2020-11-03] MEDS: Omeprazole 20 MG CAPSULE.DR PO ×2 (08:47)
[2020-11-03] MEDS: Mineral Oil/Petrolatum,White 106 GM Tube 1 APPL TOPICAL (10:09)
--- NOTE | 2020-11-03 14:24 | HO.PSYCHPN ---
Subjective Subjective Date of Service: 11/03/20 Reason For Visit: psychosis Subjective Notes: Conditional Voluntary Healthcare Proxy: No Guardianship: Yes ([facility] Jim) Interim History: Met with pt, team, pt's brother Mina and one to one special. Pt eating [employer] and engaging. Having a better afternoon. Appears improved. Discussed Olanzapine being at maximum for a significant period of time. Discussed what effects we hoped to have with Olanzapine and discussed possiblity of increasing Clozapine in addition to get to a level where pt is feeling well and asymptomatic. Pt agreed and we will increase to 50 mg on 11/04/20. Medication Compliance: Yes Side effects from medications: No Attending Groups: No Review of Systems Acute medical concerns: No Medical Review of Systems: unchanged Review of Systems Constitutional: Reports no additional constitutional complaints and Reports difficulty sleeping (using prn medication which he reports is helpful) Cardiovascular: Reports leg edema Psychiatric: Reports abnormal sleep pattern, Reports auditory hallucinations, Reports paranoia and Reports visual hallucinations Mental Status Exam Mental Status Exam Patient Appearance: Appropriate Patient Orientation: Person and Place Level of Consciousness: Awake and Alert Patient Behavior: Talkative and Good Eye Contact Mood Description: Suspicious and Withdrawn Affect Description: Suspicious, Withdrawn and Constricted Patient Cognition Impaired: Yes Ability to Follow Directions: Good Speech Pattern: Spontaneous Speech, Soft-Spoken and Long Pauses Memory Description: Remote Impaired and Episodic Impaired Hallucinations: Auditory and Visual Delusions: Paranoid Ideation and Present Perceptual Disturbances: Depersonalization Thought Process: Distracted Thought Content: positive for [place], positive for [place] and positive for Thought Blocking Depressive Symptoms: Difficulty Sleeping, Isolating-Friends/Family and Difficulty Concentrating Judgement: Poor Diagnostics Vital Signs (24Hr): Body Mass Index 38.4 Labs Results: 10/27/20 08:18 11/02/20 07:36 Labs: Laboratory Results - last 48 hr 11/02/20 07:36 Sodium 140 Potassium 4.5 Chloride 103 Carbon Dioxide 29 Anion Gap 13 BUN 18 H Creatinine 0.80 Estim Creat Clear Calc 163.6 Estimated GFR > 60 Random Glucose 121 H Calcium 9.3 Imaging Radiology Impressions: ITS Impressions KUB X-Ray 07/22/20 17:13 IMPRESSION: Moderate volume of stool scattered in colon. No bowel obstruction. Medications Medications Current Medications Generic Name Dose Route Start Last Admin Trade Name Freq PRN Reason Stop Dose Admin Acetaminophen 650 mg 07/23/20 21:13 10/22/20 00:22 Acetaminophen 325 Mg Tablet PO 650 mg Q6H PRN Administration Headache/Pain Mild Scale (1-3) Al Hydroxide/Mg Hydroxide 30 ml 07/23/20 21:13 Magnesium Hydrox/Alum Hydrox 30 Ml Oral.Susp PO Q6H PRN Heartburn/Nausea Atorvastatin Calcium 80 mg 07/23/20 21:00 11/02/20 20:47 Atorvastatin Calcium 80 Mg Tablet PO Not Given BEDTIME ON LICENSE OF [facility] Benztropine Mesylate 1 mg 10/08/20 21:00 11/03/20 08:47 Benztropine Mesylate 1 Mg Tablet PO 1 mg BID AMBROCIO Administration Clozapine 25 mg 10/08/20 09:00 11/03/20 08:47 Clozapine 25 Mg Tablet PO 25 mg DAILY [facility] Administration Enoxaparin Sodium 40 mg 10/07/20 15:00 11/03/20 14:11 Enoxaparin Sodium 40 Mg/0.4 Ml Syringe SUBCUT Not Given Q24H ON LICENSE OF [facility] Ferrous Sulfate 324 mg 09/02/20 09:00 11/03/20 08:47 Ferrous Sulfate 324 Mg Tablet.Dr PO 324 mg DAILY [facility] Administration Finasteride 5 mg 07/23/20 17:00 11/03/20 08:47 Finasteride 5 Mg Tablet PO 5 mg DAILY ON LICENSE OF [facility] Administration Hydroxyzine HCl 25 mg 07/23/20 21:13 08/17/20 03:00 Hydroxyzine Hcl 25 Mg Tablet PO 25 mg BEDTIME PRN Administration Anxiety Loperamide HCl 2 mg 07/24/20 15:43 07/24/20 15:54 Loperamide Hcl 2 Mg Capsule PO 2 mg Q4H PRN Administration Diarrhea Magnesium Hydroxide 30 ml 07/23/20 21:13 Milk Of Magnesia 30 Ml Oral.Susp PO DAILY PRN Constipation Metformin HCl 500 mg 08/14/20 17:00 11/03/20 08:47 Metformin Hcl 500 Mg Tablet PO 500 mg BIDWM ON LICENSE OF [facility] Administration Metoprolol Succinate 50 mg 10/16/20 13:00 11/03/20 10:08 Metoprolol Succinate Er 50 Mg Tab.Er.24h PO Not Given DAILY [facility] OF [facility] Protocol Multi-Ingred Cream/Lotion/Oil/Oint 1 appl 10/09/20 21:00 11/03/20 10:09 Mineral Oil/Petrolatum,White 106 Gm Tube TOPICAL 1 appl BID AMBROCIO Administration Multivitamins/Minerals 1 tab 09/25/20 13:30 11/03/20 08:47 Multivitamin With Minerals Tablet PO 1 tab DAILY [facility] Administration Patient Own 1 each 08/14/20 10:27 08/14/20 12:06 Medication (Thera PO 1 each Breath Dry Mouth Q4H PRN Administration Lozenge) Dry Mouth Patient Own 1 each 08/14/20 10:30 11/03/20 10:09 Medication (Biotene PO Not Given 15 Ml) BID [facility]IO Nystatin 1 appl 07/26/20 19:25 11/03/20 10:09 Nystatin Cream 15 Gm Tube TOPICAL Not Given DAILY [facility] Protocol Olanzapine 20 mg 10/23/20 12:18 10/31/20 09:38 Olanzapine 10 Mg Vial IM 20 mg BID PRN Administration if pt ref po zydis per jim Olanzapine 20 mg 10/23/20 21:00 11/03/20 08:47 Olanzapine Odt 10 Mg Tab.Rapdis TRANSLINGU 20 mg BID [facility]IO Administration Omeprazole 20 mg 07/24/20 06:30 11/03/20 08:47 Omeprazole 20 Mg Capsule.Dr PO 20 mg DAILY@0630 [facility] Administration Ondansetron HCl 4 mg 08/08/20 09:04 08/08/20 09:27 Ondansetron Odt 4 Mg Tab.Rapdis TRANSLINGU 4 mg Q6H PRN Administration Nausea Saliva Substitute 1 spray 08/12/20 15:06 Dry Mouth [place] 30 Ml [place] MUCOUS MEM Q2H PRN Dry Mouth Trazodone HCl 50 mg 07/23/20 21:13 11/03/20 02:48 Trazodone Hcl 50 Mg Tablet PO 50 mg BEDTIME PRN Administration Insomnia Vitamin D 50 mcg 07/23/20 21:00 11/02/20 20:47 Cholecalciferol (Vitamin D3) 25 Mcg Tablet PO Not Given BEDTIME ON LICENSE OF [facility] Allergies Allergies Allergy/AdvReac Type Severity Reaction Status Date / Time No Known Allergies Allergy Verified 07/21/20 16:39 Assessment & Plan Assessment & Plan (1) Schizophrenia, paranoid, subchronic with acute exacerbation: Status: Acute Code(s): F20.0 - Paranoid schizophrenia Assessment and Plan: Continue with plan below: Continue Zydis 20 mg bid. If pt refuses Zyprexa 20 mg bid IM. Lorazepam 1 mg q 4 hours prn agitation. Clozaril 25 mg daily. Pt does not want to titrate as he believes Clozaril caused side effects which were intolerable. conintue to encourage moving/ standing/walking Olanzapine level. Focus with pt on discharge related activities. Pt has been working with medications since 09/19/20. His progress is variable, slowed. This may be due to his hx of COVID-19. As a result, he will not be able to return to indepedent living soon, and will need a level of rehabilitative care which is not offered in subacute or nursing homes. We will apply for a [facility] admission but need to file for civil commitment prior to this application. Section [address] 11/06/20. CHD and family will testify regarding their concerns regarding pt's progress and response to [facility]' updates of medication. 11/03/20: Discussed medications with pt and brother. Continue Olanzapine. Increase Clozapine to 50 mg daily. Both are in agreement. Discussed slow titration to assist in improvement of symptoms vs pt feeling overmedicated as was his hesitation in the past to increase Clozapine. Assessment and Plan: No changes in plan of care today. Greater than 50% of the session was spent on counseling and/or coordination of care Patient educated on: medication risk/benefits Informed Consent: further education needed Reason for contiued inpatient stay Substantial Risk for: harm to self, harm to others, inability to function, rapid decompensation and med/psych decompensation
[2020-11-03 18:19] VITALS: RESP 16
[2020-11-03] MEDS: Cholecalciferol (Vitamin D3) 25 MCG TABLET 50 MCG PO (21:17)
[2020-11-03] MEDS: Atorvastatin Calcium 80 MG TABLET PO (21:17)
[2020-11-04 08:22] LABS: MANUAL DIFF FLAG NO
[2020-11-04 08:30] LABS: Basophils Absolute Auto 0.1 X10*3/uL (0.0-0.2); Basophils Percent Auto 0.5 % (0-2); Eosinophils Absolute Auto 0.4 X10*3/uL (0.0-0.4); Eosinophils Percent Auto 3.6 % (0-4); Hematocrit 33.5 % (42-52); Hemoglobin 10.7 g/dl (14.0-18.0); Imm Gran Abs Auto 0.08 X10*3/uL (0.00-0.03); Imm Gran Pct Auto 0.7 % (0.0-0.4); Lymphocytes Absolute Auto 2.2 X10*3/uL (1.2-4.9); Lymphocytes Percent Auto 19.1 % (20-40); Mean Corpuscular HGB Conc 31.9 g/dl (31.0-36.0); Mean Corpuscular Hemoglobin 26.4 pg (27.0-33.0); Mean Corpuscular Volume 82.7 fL (80-98); Mean Platelet Volume 9.5 fL (9.4-12.4); Monocytes Absolute Auto 0.8 X10*3/uL (0.1-1.2); Monocytes Percent Auto 6.9 % (2-11); Neutrophils Absolute Auto 7.8 X10*3/uL (2.0-8.3); Neutrophils Percent Auto 69.2 % (45-73); Platelet Count 296 X10*3/uL (160-400); Red Blood Count 4.05 X10*6/uL (4.60-5.80); Red Cell Distribution Width 15.5 % (11.0-16.0); White Blood Count 11.3 X10*3/uL (4.8-10.8)
[2020-11-04] MEDS: Benztropine Mesylate 1 MG TABLET PO (08:41)
[2020-11-04] MEDS: cloZAPine 25 MG TABLET 50 MG PO (08:41)
[2020-11-04] MEDS: Ferrous Sulfate 324 MG TABLET.DR PO (08:41)
[2020-11-04] MEDS: Finasteride 5 MG TABLET PO (08:41)
[2020-11-04] MEDS: metFORMIN HCl 500 MG TABLET PO (08:41)
[2020-11-04] MEDS: OLANZapine ODT 10 MG TAB.RAPDIS 20 MG TRANSLINGU ×2 (08:42→20:15)
[2020-11-04] MEDS: Mineral Oil/Petrolatum,White 106 GM Tube 1 APPL TOPICAL (11:07)
--- NOTE | 2020-11-04 17:03 | P.PNPSI_ITS ---
Subjective Subjective Date of Service: 11/04/20 Reason For Visit: psychosis Subjective Notes: Conditional Voluntary Healthcare Proxy: Yes Guardianship: No Medical Problems Affecting Mental Status: No Interim History: Pt to begin Clozaril increase today. Team reports he accepted this dosage without incident. Continues on one to one special. Medication Compliance: Yes Side effects from medications: No Attending Groups: No Review of Systems Acute medical concerns: No Medical Review of Systems: unchanged Review of Systems Constitutional: Reports no additional constitutional complaints and Reports difficulty sleeping (using prn medication which he reports is helpful) Cardiovascular: Reports leg edema Psychiatric: Reports abnormal sleep pattern, Reports auditory hallucinations, Reports paranoia and Reports visual hallucinations Mental Status Exam Mental Status Exam Patient Appearance: Appropriate Patient Orientation: Person and Place Level of Consciousness: Awake and Alert Patient Behavior: Talkative and Good Eye Contact Mood Description: Suspicious and Withdrawn Affect Description: Suspicious, Withdrawn and Constricted Patient Cognition Impaired: Yes Ability to Follow Directions: Good Speech Pattern: Spontaneous Speech, Soft-Spoken and Long Pauses Memory Description: Remote Impaired and Episodic Impaired Hallucinations: Auditory and Visual Delusions: Paranoid Ideation and Present Perceptual Disturbances: Depersonalization Thought Process: Distracted Thought Content: positive for [place], positive for [place] and positive for Thought Blocking Depressive Symptoms: Difficulty Sleeping, Isolating-Friends/Family and Difficulty Concentrating Judgement: Poor Diagnostics Vital Signs (24Hr): Vital Signs - 24 hr 11/03/20 18:19 Respiratory Rate 16 Body Mass Index 38.4 Labs Results: 11/04/20 08:14 11/02/20 07:36 Labs: Laboratory Results - last 48 hr 11/04/20 08:14 WBC 11.3 H RBC 4.05 L Hgb 10.7 L Hct 33.5 L MCV 82.7 MCH 26.4 L MCHC 31.9 RDW 15.5 Plt Count 296 MPV 9.5 Immature Gran % (Auto) 0.7 H Neut % (Auto) 69.2 Lymph % (Auto) 19.1 L [place] % (Auto) 6.9 Eos % (Auto) 3.6 Baso % (Auto) 0.5 Lymph # (Auto) 2.2 [place] # (Auto) 0.8 Eos # (Auto) 0.4 Baso # (Auto) 0.1 Abs Immat Gran (auto) 0.08 H Absolute Neuts (auto) 7.8 Absolute Nucleated RBC 0.000 Nucleated RBC % (auto) 0.0 Imaging Radiology Impressions: ITS Impressions KUB X-Ray 07/22/20 17:13 IMPRESSION: Moderate volume of stool scattered in colon. No bowel obstruction. Medications Medications Current Medications Generic Name Dose Route Start Last Admin Trade Name [place] PRN Reason Stop Dose Admin Acetaminophen 650 mg 07/23/20 21:13 10/22/20 00:22 Acetaminophen 325 Mg Tablet PO 650 mg Q6H PRN Administration Headache/Pain Mild Scale (1-3) Al Hydroxide/Mg Hydroxide 30 ml 07/23/20 21:13 Magnesium Hydrox/Alum Hydrox 30 Ml Oral.Susp PO Q6H PRN Heartburn/Nausea Atorvastatin Calcium 80 mg 07/23/20 21:00 11/03/20 21:17 Atorvastatin Calcium 80 Mg Tablet PO 80 mg BEDTIME AMBROCIO Administration Benztropine Mesylate 1 mg 10/08/20 21:00 11/04/20 08:41 Benztropine Mesylate 1 Mg Tablet PO 1 mg BID AMBROCIO Administration Clozapine 50 mg 11/04/20 09:00 11/04/20 08:41 Clozapine 25 Mg Tablet PO 50 mg DAILY [facility] Administration Enoxaparin Sodium 40 mg 10/07/20 15:00 11/04/20 14:16 Enoxaparin Sodium 40 Mg/0.4 Ml Syringe SUBCUT Not Given Q24H [facility] Ferrous Sulfate 324 mg 09/02/20 09:00 11/04/20 08:41 Ferrous Sulfate 324 Mg Tablet. PO 324 mg DAILY AMBROCIO Administration Finasteride 5 mg 07/23/20 17:00 11/04/20 08:41 Finasteride 5 Mg Tablet PO 5 mg DAILY AMBROCIO Administration Hydroxyzine HCl 25 mg 07/23/20 21:13 08/17/20 03:00 Hydroxyzine Hcl 25 Mg Tablet PO 25 mg BEDTIME PRN Administration Anxiety Loperamide HCl 2 mg 07/24/20 15:43 07/24/20 15:54 Loperamide Hcl 2 Mg Capsule PO 2 mg Q4H PRN Administration Diarrhea Magnesium Hydroxide 30 ml 07/23/20 21:13 Milk Of Magnesia 30 Ml Oral.Susp PO DAILY PRN Constipation Metformin HCl 500 mg 08/14/20 17:00 11/04/20 15:50 Metformin Hcl 500 Mg Tablet PO Not Given BIDWM [facility] Metoprolol Succinate 50 mg 10/16/20 13:00 11/04/20 08:42 Metoprolol Succinate Er 50 Mg Tab.Er.24h PO Not Given DAILY [facility] Protocol Multi-Ingred Cream/Lotion/Oil/Oint 1 appl 10/09/20 21:00 11/04/20 11:07 Mineral Oil/Petrolatum,White 106 Gm Tube TOPICAL 1 appl BID AMBROCIO Administration Multivitamins/Minerals 1 tab 09/25/20 13:30 11/04/20 08:41 Multivitamin With Minerals Tablet PO 1 tab DAILY [facility]OCIO Administration Patient Own 1 each 08/14/20 10:27 08/14/20 12:06 Medication (Thera PO 1 each Breath Dry Mouth Q4H PRN Administration Lozenge) Dry Mouth Patient Own 1 each 08/14/20 10:30 11/04/20 08:43 Medication (Biotene PO Not Given 15 Ml) BID AMBROCIO Nystatin 1 appl 07/26/20 19:25 11/04/20 08:42 Nystatin Cream 15 Gm Tube TOPICAL Not Given DAILY [facility] Protocol Olanzapine 20 mg 10/23/20 12:18 10/31/20 09:38 Olanzapine 10 Mg Vial IM 20 mg BID PRN Administration if pt ref po zydis per jim Olanzapine 20 mg 10/23/20 21:00 11/04/20 08:42 Olanzapine Odt 10 Mg Tab.Rapdis TRANSLINGU 20 mg BID AMBROCIO Administration Omeprazole 20 mg 07/24/20 06:30 11/03/20 08:47 Omeprazole 20 Mg Capsule. PO 20 mg DAILY@0630 AMBR[facility]IO Administration Ondansetron HCl 4 mg 08/08/20 09:04 08/08/20 09:27 Ondansetron Odt 4 Mg Tab.Rapdis TRANSLINGU 4 mg Q6H PRN Administration Nausea Saliva Substitute 1 spray 08/12/20 15:06 Dry Mouth [place] 30 Ml [place] MUCOUS MEM Q2H PRN Dry Mouth Trazodone HCl 50 mg 07/23/20 21:13 11/03/20 02:48 Trazodone Hcl 50 Mg Tablet PO 50 mg BEDTIME PRN Administration Insomnia Vitamin D 50 mcg 07/23/20 21:00 11/03/20 21:17 Cholecalciferol (Vitamin D3) 25 Mcg Tablet PO 50 mcg BEDTIME AMBROCIO Administration Allergies Allergies Allergy/AdvReac Type Severity Reaction Status Date / Time No Known Allergies Allergy Verified 07/21/20 16:39 Assessment & Plan Assessment & Plan (1) Schizophrenia, paranoid, subchronic with acute exacerbation: Status: Acute Code(s): F20.0 - Paranoid schizophrenia Assessment and Plan: Continue with plan below: Continue Zydis 20 mg bid. If pt refuses Zyprexa 20 mg bid IM. Lorazepam 1 mg q 4 hours prn agitation. conintue to encourage moving/ standing/walking Olanzapine level. Focus with pt on discharge related activities. Pt has been working with medications since 09/19/20. His progress is variable, slowed. This may be due to his hx of COVID-19. As a result, he will not be able to return to indepedent living soon, and will need a level of rehabilitative care which is not offered in subacute or nursing homes. We will apply for a [facility] admission but need to file for civil commitment prior to this application. Section [address] 11/06/20. CHD and family will testify regarding their concerns regarding pt's progress and response to [facility]' updates of medication. 11/03/20: Discussed medications with pt and brother. Continue Olanzapine. Increase Clozapine to 50 mg daily. Both are in agreement. Discussed slow titration to assist in improvement of symptoms vs pt feeling overmedicated as was his hesitation in the past to increase Clozapine. 11/04/20: Continue current regime. Assessment and Plan: No changes in plan of care today. Greater than 50% of the session was spent on counseling and/or coordination of care Reason for contiued inpatient stay Substantial Risk for: harm to self, harm to others, inability to function, rapid decompensation and med/psych decompensation
[2020-11-05] MEDS: Finasteride 5 MG TABLET PO (08:38)
[2020-11-05] MEDS: Mineral Oil/Petrolatum,White 106 GM Tube 1 APPL TOPICAL (08:38)
[2020-11-05] MEDS: cloZAPine 25 MG TABLET 50 MG PO (08:38)
[2020-11-05] MEDS: Benztropine Mesylate 1 MG TABLET PO (08:39)
[2020-11-05] MEDS: OLANZapine ODT 10 MG TAB.RAPDIS 20 MG TRANSLINGU ×2 (08:39→20:11)
[2020-11-05] MEDS: metFORMIN HCl 500 MG TABLET PO (08:39)
[2020-11-05] MEDS: Ferrous Sulfate 324 MG TABLET.DR PO (08:39)
[2020-11-05] MEDS: Omeprazole 20 MG CAPSULE.DR PO (08:39)
[2020-11-06] MEDS: cloZAPine 25 MG TABLET 50 MG PO (08:28)
[2020-11-06] MEDS: Finasteride 5 MG TABLET PO (08:28)
[2020-11-06] MEDS: metFORMIN HCl 500 MG TABLET PO (08:29)
[2020-11-06] MEDS: Benztropine Mesylate 1 MG TABLET PO (08:29)
[2020-11-06] MEDS: Ferrous Sulfate 324 MG TABLET.DR PO (08:29)
[2020-11-06] MEDS: OLANZapine ODT 10 MG TAB.RAPDIS 20 MG TRANSLINGU ×2 (08:29→20:35)
[2020-11-06] MEDS: Omeprazole 20 MG CAPSULE.DR PO (08:29)
--- NOTE | 2020-11-06 11:17 | PC.NURSE ---
pt refused am v/s and metoprolol.
--- NOTE | 2020-11-06 16:59 | P.PNPSI_ITS ---
Subjective Subjective Date of Service: 11/05/20 Reason For Visit: psychosis Subjective Notes: Conditional Voluntary Healthcare Proxy: Yes Guardianship: Yes (Chuy Fernandez) Medical Problems Affecting Mental Status: No Interim History: Responding to internal stimuli, apprehensive appearing, r eporting sleep and appetite are adequate, accepting of medications. Medication Compliance: Yes Side effects from medications: No Attending Groups: No Review of Systems Acute medical concerns: No Medical Review of Systems: unchanged Review of Systems Psychiatric: Reports difficulty concentrating, Reports auditory hallucinations, Reports paranoia and Reports visual hallucinations Mental Status Exam Mental Status Exam Patient Appearance: Appropriate Patient Orientation: Person and Place Level of Consciousness: Awake and Alert Patient Behavior: Talkative and Good Eye Contact Mood Description: Withdrawn Affect Description: Withdrawn and Constricted Patient Cognition Impaired: Yes Ability to Follow Directions: Good Speech Pattern: Spontaneous Speech, Soft-Spoken and Long Pauses Memory Description: Remote Impaired and Episodic Impaired Hallucinations: Auditory and Visual Delusions: Paranoid Ideation and Present Perceptual Disturbances: Depersonalization Thought Process: Distracted Thought Content: positive for [place], positive for Perseveration and positive for Thought Blocking Depressive Symptoms: Isolating-Friends/Family and Difficulty Concentrating Judgement: Poor Diagnostics Vital Signs (24Hr): Body Mass Index 38.4 Labs Results: 11/04/20 08:14 11/02/20 07:36 Imaging Radiology Impressions: ITS Impressions KUB X-Ray 07/22/20 17:13 IMPRESSION: Moderate volume of stool scattered in colon. No bowel obstruction. Medications Medications Current Medications Generic Name Dose Route Start Last Admin Trade Name Freq PRN Reason Stop Dose Admin Acetaminophen 650 mg 07/23/20 21:13 10/22/20 00:22 Acetaminophen 325 Mg Tablet PO 650 mg Q6H PRN Administration Headache/Pain Mild Scale (1-3) Al Hydroxide/Mg Hydroxide 30 ml 07/23/20 21:13 Magnesium Hydrox/Alum Hydrox 30 Ml Oral.Susp PO Q6H PRN Heartburn/Nausea Atorvastatin Calcium 80 mg 07/23/20 21:00 11/05/20 20:08 Atorvastatin Calcium 80 Mg Tablet PO Not Given BEDTIME [facility] Benztropine Mesylate 1 mg 10/08/20 21:00 11/06/20 08:29 Benztropine Mesylate 1 Mg Tablet PO 1 mg BID [facility] Administration Clozapine 50 mg 11/04/20 09:00 11/06/20 08:28 Clozapine 25 Mg Tablet PO 50 mg DAILY [facility] Administration Enoxaparin Sodium 40 mg 10/07/20 15:00 11/06/20 14:35 Enoxaparin Sodium 40 Mg/0.4 Ml Syringe SUBCUT Not Given Q24H [facility] Ferrous Sulfate 324 mg 09/02/20 09:00 11/06/20 08:29 Ferrous Sulfate 324 Mg Tablet.Dr PO 324 mg DAILY [facility] Administration Finasteride 5 mg 07/23/20 17:00 11/06/20 08:28 Finasteride 5 Mg Tablet PO 5 mg DAILY [facility] Administration Hydroxyzine HCl 25 mg 07/23/20 21:13 08/17/20 03:00 Hydroxyzine Hcl 25 Mg Tablet PO 25 mg BEDTIME PRN Administration Anxiety Loperamide HCl 2 mg 07/24/20 15:43 07/24/20 15:54 Loperamide Hcl 2 Mg Capsule PO 2 mg Q4H PRN Administration Diarrhea Magnesium Hydroxide 30 ml 07/23/20 21:13 Milk Of Magnesia 30 Ml Oral.Susp PO DAILY PRN Constipation Metformin HCl 500 mg 08/14/20 17:00 11/06/20 16:50 Metformin Hcl 500 Mg Tablet PO Not Given BIDWM [facility] Metoprolol Succinate 50 mg 10/16/20 13:00 11/06/20 14:24 Metoprolol Succinate Er 50 Mg Tab.Er.24h PO Not Given DAILY [facility] Protocol Multi-Ingred Cream/Lotion/Oil/Oint 1 appl 10/09/20 21:00 11/06/20 08:37 Mineral Oil/Petrolatum,White 106 Gm Tube TOPICAL Not Given BID [facility] Multivitamins/Minerals 1 tab 09/25/20 13:30 11/06/20 08:29 Multivitamin With Minerals Tablet PO 1 tab DAILY [facility] Administration Patient Own 1 each 08/14/20 10:27 08/14/20 12:06 Medication (Thera PO 1 each Breath Dry Mouth Q4H PRN Administration Lozenge) Dry Mouth Patient Own 1 each 08/14/20 10:30 11/06/20 14:25 Medication (Biotene PO Not Given 15 Ml) BID [facility] Nystatin 1 appl 07/26/20 19:25 11/06/20 14:25 Nystatin Cream 15 Gm Tube TOPICAL Not Given DAILY [facility] Protocol Olanzapine 20 mg 10/23/20 12:18 10/31/20 09:38 Olanzapine 10 Mg Vial IM 20 mg BID PRN Administration if pt ref po zydis per fernandez Olanzapine 20 mg 10/23/20 21:00 11/06/20 08:29 Olanzapine Odt 10 Mg Tab.Amandadis TRANSLINGU 20 mg BID [facility] Administration Omeprazole 20 mg 07/24/20 06:30 11/06/20 08:29 Omeprazole 20 Mg Capsule. PO 20 mg DAILY@0630 [facility] Administration Saliva Substitute 1 spray 08/12/20 15:06 Dry Mouth [place] 30 Ml [place] MUCOUS MEM Q2H PRN Dry Mouth Trazodone HCl 50 mg 07/23/20 21:13 11/03/20 02:48 Trazodone Hcl 50 Mg Tablet PO 50 mg BEDTIME PRN Administration Insomnia Vitamin D 50 mcg 07/23/20 21:00 11/05/20 20:08 Cholecalciferol (Vitamin D3) 25 Mcg Tablet PO Not Given BEDTIME [facility] Allergies Allergies Allergy/AdvReac Type Severity Reaction Status Date / Time No Known Allergies Allergy Verified 07/21/20 16:39 Assessment & Plan Assessment & Plan (1) Schizophrenia, paranoid, subchronic with acute exacerbation: Status: Acute Code(s): F20.0 - Paranoid schizophrenia Assessment and Plan: Continue with plan below: Continue Zydis 20 mg bid. If pt refuses Zyprexa 20 mg bid IM. Lorazepam 1 mg q 4 hours prn agitation. conintue to encourage moving/ standing/walking Olanzapine level. Focus with pt on discharge related activities. Pt has been working with medications since 09/19/20. His progress is variable, slowed. This may be due to his hx of COVID-19. As a result, he will not be able to return to indepedent living soon, and will need a level of rehabilitative care which is not offered in subacute or nursing homes. We will apply for a [facility] admission but need to file for civil commitment prior to this application. Section VII filed[address] 11/06/20. CHD and family will testify regarding their concerns regarding pt's progress and response to [facility] updates of medication. 11/03/20: Discussed medications with pt and brother. Continue Olanzapine. Incre ase Clozapine to 50 mg daily. Both are in agreement. Discussed slow titration to assist in improvement of symptoms vs pt feeling overmedicated as was his hesitation in the past to increase Clozapine. 11/04/20: Continue current regime. 11/05/20: Continue current regime. Assessment and Plan: No changes in plan of care today. Greater than 50% of the session was spent on counseling and/or coordination of care Reason for contiued inpatient stay Substantial Risk for: inability to function and rapid decompensation
[2020-11-06 18:00] VITALS: BP 115/57; PULSE 104
[2020-11-07] MEDS: Omeprazole 20 MG CAPSULE.DR PO (08:18)
[2020-11-07] MEDS: Ferrous Sulfate 324 MG TABLET.DR PO (08:18)
[2020-11-07] MEDS: cloZAPine 25 MG TABLET 50 MG PO (08:18)
[2020-11-07] MEDS: Finasteride 5 MG TABLET PO (08:19)
[2020-11-07] MEDS: OLANZapine ODT 10 MG TAB.RAPDIS 20 MG TRANSLINGU ×2 (08:19→20:51)
[2020-11-07] MEDS: Benztropine Mesylate 1 MG TABLET PO (08:19)
[2020-11-07] MEDS: metFORMIN HCl 500 MG TABLET PO (08:19)
[2020-11-07] MEDS: Mineral Oil/Petrolatum,White 106 GM Tube 1 APPL TOPICAL (12:48)
--- NOTE | 2020-11-07 18:53 | HO.PSYCHPN ---
Subjective Subjective Date of Service: 11/08/20 Reason For Visit: psychosis Interim History: Patient seen and discussed with team. I evaluated the patient this evening and upon interview he reports his mood is good. Says his sleep and appetite are good. He denies anxiety. Denies psychotic symptoms. Denies physical health complaints, other than he says his feet are a little numb. Of note, he continues to have limited physical activity, sitting in lounge chair with feet up, watching TV, has a 1:1 sitter. He is watching the [email or web address] and says it is good for the kid in you. In the milieu, patient is safe and appropriate in behavio, isolative in his room, pleasant. Denies SI/SIB/HI upon inquiry. Denies irritability or assaultive ideation. Says he feels safe. Mental Status Exam Mental Status Exam Narrative: Patient Appearance:?Appropriate Patient Orientation:?Person and Place Level of Consciousness:?Awake and Alert Patient Behavior:?Talkative and Good Eye Contact Mood Description:?Withdrawn Affect Description:?Withdrawn and Constricted Patient Cognition Impaired:?Yes Ability to Follow Directions:?Good Speech Pattern:?Spontaneous Speech, Soft-Spoken and Long Pauses Memory Description:?Remote Impaired and Episodic Impaired Hallucinations:?Auditory and Visual Delusions:?Paranoid Ideation and Present Perceptual Disturbances:?Depersonalization Thought Process:?Distracted Thought Content:?positive for [place], positive for Perseveration and positive for Thought Blocking Depressive Symptoms:?Isolating-Friends/Family and Difficulty Concentrating Judgement:?Poor Diagnostics Vital Signs (24Hr): Body Mass Index 38.4 Labs Results: 11/04/20 08:14 11/02/20 07:36 Imaging Radiology Impressions: ITS Impressions KUB X-Ray 07/22/20 17:13 IMPRESSION: Moderate volume of stool scattered in colon. No bowel obstruction. Medications Medications Current Medications Generic Name Dose Route Start Last Admin Trade Name Freq PRN Reason Stop Dose Admin Acetaminophen 650 mg 07/23/20 21:13 10/22/20 00:22 Acetaminophen 325 Mg Tablet PO 650 mg Q6H PRN Administration Headache/Pain Mild Scale (1-3) Al Hydroxide/Mg Hydroxide 30 ml 07/23/20 21:13 Magnesium Hydrox/Alum Hydrox 30 Ml Oral.Susp PO Q6H PRN Heartburn/Nausea Atorvastatin Calcium 80 mg 07/23/20 21:00 11/06/20 20:36 Atorvastatin Calcium 80 Mg Tablet PO Not Given BEDTIME [facility] Benztropine Mesylate 1 mg 10/08/20 21:00 11/07/20 08:19 Benztropine Mesylate 1 Mg Tablet PO 1 mg BID [facility] Administration Clozapine 50 mg 11/04/20 09:00 11/07/20 08:18 Clozapine 25 Mg Tablet PO 50 mg DAILY [facility] Administration Enoxaparin Sodium 40 mg 10/07/20 15:00 11/07/20 15:03 Enoxaparin Sodium 40 Mg/0.4 Ml Syringe SUBCUT Not Given Q24H [facility] Ferrous Sulfate 324 mg 09/02/20 09:00 11/07/20 08:18 Ferrous Sulfate 324 Mg Tablet. PO 324 mg DAILY [facility] Administration Finasteride 5 mg 07/23/20 17:00 11/07/20 08:19 Finasteride 5 Mg Tablet PO 5 mg DAILY [facility] Administration Hydroxyzine HCl 25 mg 07/23/20 21:13 08/17/20 03:00 Hydroxyzine Hcl 25 Mg Tablet PO 25 mg BEDTIME PRN Administration Anxiety Loperamide HCl 2 mg 07/24/20 15:43 07/24/20 15:54 Loperamide Hcl 2 Mg Capsule PO 2 mg Q4H PRN Administration Diarrhea Magnesium Hydroxide 30 ml 07/23/20 21:13 Milk Of Magnesia 30 Ml Oral.Susp PO DAILY PRN Constipation Metformin HCl 500 mg 08/14/20 17:00 11/07/20 16:46 Metformin Hcl 500 Mg Tablet PO Not Given BIDWM [facility] Metoprolol Succinate 50 mg 10/16/20 13:00 11/07/20 08:29 Metoprolol Succinate Er 50 Mg Tab.Er.24h PO Not Given DAILY [facility] Protocol Multi-Ingred Cream/Lotion/Oil/Oint 1 appl 10/09/20 21:00 11/07/20 12:48 Mineral Oil/Petrolatum,White 106 Gm Tube TOPICAL 1 appl BID [facility] Administration Multivitamins/Minerals 1 tab 09/25/20 13:30 11/07/20 08:19 Multivitamin With Minerals Tablet PO 1 tab DAILY [facility] Administration Patient Own 1 each 08/14/20 10:27 08/14/20 12:06 Medication (Thera PO 1 each Breath Dry Mouth Q4H PRN Administration Lozenge) Dry Mouth Patient Own 1 each 08/14/20 10:30 11/07/20 12:48 Medication (Biotene PO Not Given 15 Ml) BID [facility] Nystatin 1 appl 07/26/20 19:25 11/07/20 12:48 Nystatin Cream 15 Gm Tube TOPICAL Not Given DAILY [facility] Protocol Olanzapine 20 mg 10/23/20 12:18 10/31/20 09:38 Olanzapine 10 Mg Vial IM 20 mg BID PRN Administration if pt ref po zydis per jim Olanzapine 20 mg 10/23/20 21:00 11/07/20 08:19 Olanzapine Odt 10 Mg Tab.Rapdis TRANSLINGU 20 mg BID [facility] Administration Omeprazole 20 mg 07/24/20 06:30 11/07/20 08:18 Omeprazole 20 Mg Capsule. PO 20 mg DAILY@0630 [facility] Administration Saliva Substitute 1 spray 08/12/20 15:06 Dry Mouth [place] 30 Ml [place] MUCOUS MEM Q2H PRN Dry Mouth Trazodone HCl 50 mg 07/23/20 21:13 11/03/20 02:48 Trazodone Hcl 50 Mg Tablet PO 50 mg BEDTIME PRN Administration Insomnia Vitamin D 50 mcg 07/23/20 21:00 11/06/20 20:36 Cholecalciferol (Vitamin D3) 25 Mcg Tablet PO Not Given BEDTIME [facility] Allergies Allergies Allergy/AdvReac Type Severity Reaction Status Date / Time No Known Allergies Allergy Verified 07/21/20 16:39 Assessment & Plan Assessment & Plan (1) Schizophrenia, paranoid, subchronic with acute exacerbation: Status: Acute Code(s): F20.0 - Paranoid schizophrenia Assessment and Plan: Continue with plan below: Continue Zydis 20 mg bid. If pt refuses Zyprexa 20 mg bid IM. Lorazepam 1 mg q 4 hours prn agitation. conintue to encourage moving/ standing/walking Olanzapine level. Focus with pt on discharge related activities. Pt has been working with medications since 09/19/20. His progress is variable, slowed. This may be due to his hx of COVID-19. As a result, he will not be able to return to indepedent living soon, and will need a level of rehabilitative care which is not offered in subacute or nursing homes. We will apply for a [facility] admission but need to file for civil commitment prior to this application. Section [address] 11/06/20. CHD and family will testify regarding their concerns regarding pt's progress and response to [facility] updates of medication. 11/03/20: Discussed medications with pt and brother. Continue Olanzapine. Increase Clozapine to 50 mg daily. Both are in agreement. Discussed slow titration to assist in improvement of symptoms vs pt feeling overmedicated as was his hesitation in the past to increase Clozapine. 11/04/20: Continue current regime. 11/05/20: Continue current regime. 11/06/20: Continue current regime and monitor meds for benefit. Assessment and Plan: No changes in plan of care today. Greater than 50% of the session was spent on counseling and/or coordination of care Reason for contiued inpatient stay Substantial Risk for: harm to self, inability to function and med/psych decompensation
[2020-11-08] MEDS: cloZAPine 25 MG TABLET 50 MG PO (08:51)
[2020-11-08] MEDS: OLANZapine ODT 10 MG TAB.RAPDIS 20 MG TRANSLINGU ×2 (08:51→20:39)
[2020-11-08] MEDS: Ferrous Sulfate 324 MG TABLET.DR PO (08:52)
--- NOTE | 2020-11-08 13:30 | HO.PSYCHPN ---
Subjective Subjective Date of Service: 11/08/20 Reason For Visit: psychosis Interim History: on one-to-one observation. Noted close well on olanzapine. Declining Lovenox but is mobilizing. Pleasant with marketing underwriter. Is concrete. Reported wanting or issues. Otherwise denied depression. Denied SI. Did endorse hearing voices a number of times per day that do not appear to be command in nature, but more commentary. Reports feeling well cared for and safe. Denied medication issues or concerns Medication Compliance: Yes Side effects from medications: No Review of Systems Acute medical concerns: No Review of Systems Review of Systems noncontributory Mental Status Exam Mental Status Exam Narrative: in hospital bed, obese. Casually dressed, self-care okay. Pleasant. Denied depression. Denied SI. Endorses hallucinations. Feeling safe and well cared for. Insight and judgment okay Diagnostics Vital Signs (24Hr): Body Mass Index 38.4 Labs Results: 11/04/20 08:14 11/02/20 07:36 Imaging Radiology Impressions: ITS Impressions KUB X-Ray 07/22/20 17:13 IMPRESSION: Moderate volume of stool scattered in colon. No bowel obstruction. Medications Medications Current Medications Generic Name Dose Route Start Last Admin Trade Name Freq PRN Reason Stop Dose Admin Acetaminophen 650 mg 07/23/20 21:13 10/22/20 00:22 Acetaminophen 325 Mg Tablet PO 650 mg Q6H PRN Administration Headache/Pain Mild Scale (1-3) Al Hydroxide/Mg Hydroxide 30 ml 07/23/20 21:13 Magnesium Hydrox/Alum Hydrox 30 Ml Oral.Susp PO Q6H PRN Heartburn/Nausea Atorvastatin Calcium 80 mg 07/23/20 21:00 11/07/20 20:48 Atorvastatin Calcium 80 Mg Tablet PO Not Given BEDTIME [facility] Benztropine Mesylate 1 mg 10/08/20 21:00 11/08/20 08:55 Benztropine Mesylate 1 Mg Tablet PO Not Given BID [facility] Clozapine 50 mg 11/04/20 09:00 11/08/20 08:51 Clozapine 25 Mg Tablet PO 50 mg DAILY [facility] Administration Enoxaparin Sodium 40 mg 10/07/20 15:00 11/08/20 13:13 Enoxaparin Sodium 40 Mg/0.4 Ml Syringe SUBCUT Not Given Q24H [facility] Ferrous Sulfate 324 mg 09/02/20 09:00 11/08/20 08:52 Ferrous Sulfate 324 Mg Tablet. PO 324 mg DAILY [facility] Administration Finasteride 5 mg 07/23/20 17:00 11/08/20 08:55 Finasteride 5 Mg Tablet PO Not Given DAILY [facility] Hydroxyzine HCl 25 mg 07/23/20 21:13 08/17/20 03:00 Hydroxyzine Hcl 25 Mg Tablet PO 25 mg BEDTIME PRN Administration Anxiety Loperamide HCl 2 mg 07/24/20 15:43 07/24/20 15:54 Loperamide Hcl 2 Mg Capsule PO 2 mg Q4H PRN Administration Diarrhea Magnesium Hydroxide 30 ml 07/23/20 21:13 Milk Of Magnesia 30 Ml Oral.Susp PO DAILY PRN Constipation Metformin HCl 500 mg 08/14/20 17:00 11/08/20 08:55 Metformin Hcl 500 Mg Tablet PO Not Given BIDWM [facility] Metoprolol Succinate 50 mg 10/16/20 13:00 11/08/20 08:55 Metoprolol Succinate Er 50 Mg Tab.Er.24h PO Not Given DAILY [facility] Protocol Multi-Ingred Cream/Lotion/Oil/Oint 1 appl 10/09/20 21:00 11/08/20 08:56 Mineral Oil/Petrolatum,White 106 Gm Tube TOPICAL Not Given BID [facility] Multivitamins/Minerals 1 tab 09/25/20 13:30 11/08/20 08:56 Multivitamin With Minerals Tablet PO Not Given DAILY [facility] Patient Own 1 each 08/14/20 10:27 08/14/20 12:06 Medication (Thera PO 1 each Breath Dry Mouth Q4H PRN Administration Lozenge) Dry Mouth Patient Own 1 each 08/14/20 10:30 11/08/20 08:56 Medication (Biotene PO Not Given 15 Ml) BID [facility] Nystatin 1 appl 07/26/20 19:25 11/08/20 08:56 Nystatin Cream 15 Gm Tube TOPICAL Not Given DAILY [facility] Protocol Olanzapine 20 mg 10/23/20 12:18 10/31/20 09:38 Olanzapine 10 Mg Vial IM 20 mg BID PRN Administration if pt ref po zydis per jim Olanzapine 20 mg 10/23/20 21:00 11/08/20 08:51 Olanzapine Odt 10 Mg Tab.Rapdis TRANSLINGU 20 mg BID [facility] Administration Omeprazole 20 mg 07/24/20 06:30 11/08/20 08:54 Omeprazole 20 Mg Capsule. PO Not Given DAILY@0630 [facility] Saliva Substitute 1 spray 08/12/20 15:06 Dry Mouth [place] 30 Ml [place] MUCOUS MEM Q2H PRN Dry Mouth Trazodone HCl 50 mg 07/23/20 21:13 11/03/20 02:48 Trazodone Hcl 50 Mg Tablet PO 50 mg BEDTIME PRN Administration Insomnia Vitamin D 50 mcg 07/23/20 21:00 11/07/20 20:48 Cholecalciferol (Vitamin D3) 25 Mcg Tablet PO Not Given BEDTIME [facility] Allergies Allergies Allergy/AdvReac Type Severity Reaction Status Date / Time No Known Allergies Allergy Verified 07/21/20 16:39 Assessment & Plan Assessment & Plan (1) Schizophrenia, paranoid, subchronic with acute exacerbation: Status: Acute Code(s): F20.0 - Paranoid schizophrenia Assessment and Plan: Continue with plan below: Continue Zydis 20 mg bid. If pt refuses Zyprexa 20 mg bid IM. Lorazepam 1 mg q 4 hours prn agitation. conintue to encourage moving/ standing/walking Olanzapine level. Focus with pt on discharge related activities. Pt has been working with medications since 09/19/20. His progress is variable, slowed. This may be due to his hx of COVID-19. As a result, he will not be able to return to indepedent living soon, and will need a level of rehabilitative care which is not offered in subacute or nursing homes. We will apply for a [facility] admission but need to file for civil commitment prior to this application. Section [address] 11/06/20. CHD and family will testify regarding their concerns regarding pt's progress and response to [facility] updates of medication. 11/03/20: Discussed medications with pt and brother. Continue Olanzapine. Increase Clozapine to 50 mg daily. Both are in agreement. Discussed slow titration to assist in improvement of symptoms vs pt feeling overmedicated as was his hesitation in the past to increase Clozapine. 11/04/20: Continue current regime. 11/05/20: Continue current regime. 11/06/20: Continue current regime and monitor meds for benefit. 11/08/2020: No changes to current primary team treatment plan on Clozaril titration. Will discontinue Lovenox is not taking same and is also mobilizing Assessment and Plan: No changes in plan of care today. Greater than 50% of the session was spent on counseling and/or coordination of care Reason for contiued inpatient stay Substantial Risk for: inability to function and rapid decompensation
[2020-11-09] MEDS: Ferrous Sulfate 324 MG TABLET.DR PO (08:21)
[2020-11-09] MEDS: OLANZapine ODT 10 MG TAB.RAPDIS 20 MG TRANSLINGU ×2 (08:21→21:15)
[2020-11-09] MEDS: cloZAPine 25 MG TABLET 50 MG PO (08:21)
--- NOTE | 2020-11-09 12:51 | HO.PSYCHPN ---
Subjective Subjective Date of Service: 11/09/20 Reason For Visit: psychosis Interim History: on one-to-one observation. Noted clozapine slow titration as per team and patient agreement and also on olanzapine. Declining Lovenox but is mobilizing. Pleasant with consumer loan underwriter. More organized. Denied depression. Denied SI. Did endorse hearing voices a number of times per day that do not appear to be command in nature, but more commentary and are slightly less frequent today. Reports feeling well cared for and safe. Denied medication issues or concerns Medication Compliance: Yes Side effects from medications: No Review of Systems Acute medical concerns: No Mental Status Exam Mental Status Exam Narrative: ?in hospital bed, obese.? Casually dressed, self-care okay.? Pleasant.? Denied depression.? Denied SI.? Endorses hallucinations.? Feeling safe and well cared for.? Insight and judgment okay Diagnostics Vital Signs (24Hr): Body Mass Index 38.4 Labs Results: 11/04/20 08:14 11/02/20 07:36 Imaging Radiology Impressions: ITS Impressions KUB X-Ray 07/22/20 17:13 IMPRESSION: Moderate volume of stool scattered in colon. No bowel obstruction. Medications Medications Current Medications Generic Name Dose Route Start Last Admin Trade Name Freq PRN Reason Stop Dose Admin Acetaminophen 650 mg 07/23/20 21:13 10/22/20 00:22 Acetaminophen 325 Mg Tablet PO 650 mg Q6H PRN Administration Headache/Pain Mild Scale (1-3) Al Hydroxide/Mg Hydroxide 30 ml 07/23/20 21:13 Magnesium Hydrox/Alum Hydrox 30 Ml Oral.Susp PO Q6H PRN Heartburn/Nausea Atorvastatin Calcium 80 mg 07/23/20 21:00 11/08/20 22:39 Atorvastatin Calcium 80 Mg Tablet PO Not Given BEDTIME [facility] Benztropine Mesylate 1 mg 10/08/20 21:00 11/09/20 08:19 Benztropine Mesylate 1 Mg Tablet PO Not Given BID [facility] Clozapine 50 mg 11/04/20 09:00 11/09/20 08:21 Clozapine 25 Mg Tablet PO 50 mg DAILY [facility] Administration Ferrous Sulfate 324 mg 09/02/20 09:00 11/09/20 08:21 Ferrous Sulfate 324 Mg Tablet. PO 324 mg DAILY [facility] Administration Finasteride 5 mg 07/23/20 17:00 11/09/20 08:20 Finasteride 5 Mg Tablet PO Not Given DAILY [facility] Hydroxyzine HCl 25 mg 07/23/20 21:13 08/17/20 03:00 Hydroxyzine Hcl 25 Mg Tablet PO 25 mg BEDTIME PRN Administration Anxiety Loperamide HCl 2 mg 07/24/20 15:43 07/24/20 15:54 Loperamide Hcl 2 Mg Capsule PO 2 mg Q4H PRN Administration Diarrhea Magnesium Hydroxide 30 ml 07/23/20 21:13 Milk Of Magnesia 30 Ml Oral.Susp PO DAILY PRN Constipation Metformin HCl 500 mg 08/14/20 17:00 11/09/20 08:19 Metformin Hcl 500 Mg Tablet PO Not Given BIDWM [facility] Metoprolol Succinate 50 mg 10/16/20 13:00 11/09/20 08:19 Metoprolol Succinate Er 50 Mg Tab.Er.24h PO Not Given DAILY [facility] Protocol Multi-Ingred Cream/Lotion/Oil/Oint 1 appl 10/09/20 21:00 11/09/20 08:20 Mineral Oil/Petrolatum,White 106 Gm Tube TOPICAL Not Given BID [facility] Multivitamins/Minerals 1 tab 09/25/20 13:30 11/09/20 08:20 Multivitamin With Minerals Tablet PO Not Given DAILY [facility] Patient Own 1 each 08/14/20 10:27 08/14/20 12:06 Medication (Thera PO 1 each Breath Dry Mouth Q4H PRN Administration Lozenge) Dry Mouth Patient Own 1 each 08/14/20 10:30 11/09/20 08:21 Medication (Biotene PO Not Given 15 Ml) BID [facility] Nystatin 1 appl 07/26/20 19:25 11/09/20 08:20 Nystatin Cream 15 Gm Tube TOPICAL Not Given DAILY [facility] Protocol Olanzapine 20 mg 10/23/20 12:18 10/31/20 09:38 Olanzapine 10 Mg Vial IM 20 mg BID PRN Administration if pt ref po zydis per jim Olanzapine 20 mg 10/23/20 21:00 11/09/20 08:21 Olanzapine Odt 10 Mg Tab.Rapdis TRANSLINGU 20 mg BID [facility] Administration Omeprazole 20 mg 07/24/20 06:30 11/09/20 08:19 Omeprazole 20 Mg Capsule.Dr PO Not Given DAILY@0630 [facility] Saliva Substitute 1 spray 08/12/20 15:06 Dry Mouth Reserve 30 Ml Reserve MUCOUS MEM Q2H PRN Dry Mouth Trazodone HCl 50 mg 07/23/20 21:13 11/03/20 02:48 Trazodone Hcl 50 Mg Tablet PO 50 mg BEDTIME PRN Administration Insomnia Vitamin D 50 mcg 07/23/20 21:00 11/08/20 22:39 Cholecalciferol (Vitamin D3) 25 Mcg Tablet PO Not Given BEDTIME [facility] Allergies Allergies Allergy/AdvReac Type Severity Reaction Status Date / Time No Known Allergies Allergy Verified 07/21/20 16:39 Assessment & Plan Assessment & Plan (1) Schizophrenia, paranoid, subchronic with acute exacerbation: Status: Acute Code(s): F20.0 - Paranoid schizophrenia Assessment and Plan: Continue with plan below: Continue Zydis 20 mg bid. If pt refuses Zyprexa 20 mg bid IM. Lorazepam 1 mg q 4 hours prn agitation. conintue to encourage moving/ standing/walking Olanzapine level. Focus with pt on discharge related activities. Pt has been working with medications since 09/19/20. His progress is variable, slowed. This may be due to his hx of COVID-19. As a result, he will not be able to return to indepedent living soon, and will need a level of rehabilitative care which is not offered in subacute or nursing homes. We will apply for a [facility] admission but need to file for civil commitment prior to this application. Section VII filed. Court 11/06/20. CHD and family will testify regarding their concerns regarding pt's progress and response to [facility]' updates of medication. 11/03/20: Discussed medications with pt and brother. Continue Olanzapine. Increase Clozapine to 50 mg daily. Both are in agreement. Discussed slow titration to assist in improvement of symptoms vs pt feeling overmedicated as was his hesitation in the past to increase Clozapine. 11/04/20: Continue current regime. 11/05/20: Continue current regime. 11/06/20: Continue current regime and monitor meds for benefit. 11/09/2020: No changes to current primary team treatment plan on Clozaril titration (slow as agreed by pt and team). Assessment and Plan: No changes in plan of care today. Greater than 50% of the session was spent on counseling and/or coordination of care Reason for contiued inpatient stay Substantial Risk for: inability to function
[2020-11-09] MEDS: metFORMIN HCl 500 MG TABLET PO (17:09)
[2020-11-10 06:00] VITALS: PULSE 91; RESP 16; O2SAT 99
[2020-11-10 07:29] LABS: MANUAL DIFF FLAG NO
[2020-11-10 07:32] LABS: Basophils Absolute Auto 0.1 X10*3/uL (0.0-0.2); Basophils Percent Auto 0.5 % (0-2); Eosinophils Absolute Auto 0.3 X10*3/uL (0.0-0.4); Eosinophils Percent Auto 3.2 % (0-4); Hematocrit 31.7 % (42-52); Imm Gran Abs Auto 0.06 X10*3/uL (0.00-0.03); Imm Gran Pct Auto 0.6 % (0.0-0.4); Lymphocytes Percent Auto 18.5 % (20-40); Mean Corpuscular HGB Conc 31.5 g/dl (31.0-36.0); Mean Corpuscular Hemoglobin 26.1 pg (27.0-33.0); Mean Corpuscular Volume 82.8 fL (80-98); Mean Platelet Volume 9.6 fL (9.4-12.4); Monocytes Absolute Auto 0.8 X10*3/uL (0.1-1.2); Monocytes Percent Auto 7.8 % (2-11); Neutrophils Absolute Auto 7.5 X10*3/uL (2.0-8.3); Neutrophils Percent Auto 69.4 % (45-73); Platelet Count 282 X10*3/uL (160-400); Red Blood Count 3.83 X10*6/uL (4.60-5.80); Red Cell Distribution Width 15.5 % (11.0-16.0); White Blood Count 10.8 X10*3/uL (4.8-10.8)
[2020-11-10 07:53] LABS: Alanine Aminotransferase 14 U/L (0-40); Albumin Level 3.3 g/dL (3.5-5.0); Alkaline Phosphatase 62 U/L (39-117); Anion Gap 11 (12-20); Aspartate Amino Transferase 11 U/L (5-37); Bilirubin Total 0.4 mg/dL (0.0-1.0); Blood Urea Nitrogen 18 mg/dL (9-16); Calcium 8.9 mg/dL (8.4-10.2); Carbon Dioxide 28 mmol/L (22-29); Chloride 102 mmol/L (96-108); Creatinine Clr Calc Pharmacy 161.6; Estimated Glomerular Filt Rate > 60; Glucose Random 133 mg/dL (60-115); Potassium 4.4 mmol/L (3.3-5.1); Sodium 137 mmol/L (135-145); Total Protein 5.8 g/dL (6.5-8.0)
[2020-11-10] MEDS: cloZAPine 25 MG TABLET 50 MG PO (08:34)
[2020-11-10] MEDS: Ferrous Sulfate 324 MG TABLET.DR PO (08:34)
[2020-11-10] MEDS: OLANZapine ODT 10 MG TAB.RAPDIS 20 MG TRANSLINGU ×2 (08:34→20:30)
[2020-11-10] MEDS: Mineral Oil/Petrolatum,White 106 GM Tube 1 APPL TOPICAL (08:38)
--- NOTE | 2020-11-10 12:48 | HO.PSYCHPN ---
Subjective Subjective Date of Service: 11/10/20 Reason For Visit: psychosis Interim History: on one-to-one observation. Noted clozapine slow titration as per team and patient agreement and also on olanzapine. Feels a little more tired on new regimen. Organized. Denied depression. Denied SI. Did endorse hearing voices a number of times per day that do not appear to be command in nature, but more commentary and are slightly less frequent today. Reports feeling well cared for and safe. Denied medication issues or concerns Medication Compliance: Yes Side effects from medications: No Review of Systems Acute medical concerns: No Review of Systems Review of Systems noncontributory Mental Status Exam Mental Status Exam Narrative: ?in hospital bed, obese.? Casually dressed, self-care okay.? Pleasant.? Denied depression.? Denied SI.? Endorses hallucinations.? Feeling safe and well cared for.? Insight and judgment okay Diagnostics Vital Signs (24Hr): Vital Signs - 24 hr 11/10/20 06:00 Pulse Rate 91 Respiratory Rate 16 Pulse Oximetry 99 Body Mass Index 38.4 Labs Results: 11/10/20 07:14 11/10/20 07:14 Labs: Laboratory Results - last 48 hr 11/10/20 11/10/20 07:14 07:14 WBC 10.8 RBC 3.83 L Hgb 10.0 L Hct 31.7 L MCV 82.8 MCH 26.1 L MCHC 31.5 RDW 15.5 Plt Count 282 MPV 9.6 Immature Gran % (Auto) 0.6 H Neut % (Auto) 69.4 Lymph % (Auto) 18.5 L Wilkes % (Auto) 7.8 Eos % (Auto) 3.2 Baso % (Auto) 0.5 Lymph # (Auto) 2.0 Wilkes # (Auto) 0.8 Eos # (Auto) 0.3 Baso # (Auto) 0.1 Abs Immat Gran (auto) 0.06 H Absolute Neuts (auto) 7.5 Absolute Nucleated RBC 0.000 Nucleated RBC % (auto) 0.0 Sodium 137 Potassium 4.4 Chloride 102 Carbon Dioxide 28 Anion Gap 11 L BUN 18 H Creatinine 0.81 Estim Creat Clear Calc 161.6 Estimated GFR > 60 Random Glucose 133 H Calcium 8.9 Total Bilirubin 0.4 AST 11 D ALT 14 Alkaline Phosphatase 62 Total Protein 5.8 L Albumin 3.3 L Imaging Radiology Impressions: ITS Impressions KUB X-Ray 07/22/20 17:13 IMPRESSION: Moderate volume of stool scattered in colon. No bowel obstruction. Medications Medications Current Medications Generic Name Dose Route Start Last Admin Trade Name Freq PRN Reason Stop Dose Admin Acetaminophen 650 mg 07/23/20 21:13 10/22/20 00:22 Acetaminophen 325 Mg Tablet PO 650 mg Q6H PRN Administration Headache/Pain Mild Scale (1-3) Al Hydroxide/Mg Hydroxide 30 ml 07/23/20 21:13 Magnesium Hydrox/Alum Hydrox 30 Ml Oral.Susp PO Q6H PRN Heartburn/Nausea Atorvastatin Calcium 80 mg 07/23/20 21:00 11/09/20 21:26 Atorvastatin Calcium 80 Mg Tablet PO Not Given BEDTIME [facility] Benztropine Mesylate 1 mg 10/08/20 21:00 11/10/20 08:36 Benztropine Mesylate 1 Mg Tablet PO Not Given BID [facility] Clozapine 50 mg 11/04/20 09:00 11/10/20 08:34 Clozapine 25 Mg Tablet PO 50 mg DAILY [facility] Administration Ferrous Sulfate 324 mg 09/02/20 09:00 11/10/20 08:34 Ferrous Sulfate 324 Mg Tablet. PO 324 mg DAILY [facility] Administration Finasteride 5 mg 07/23/20 17:00 11/10/20 08:37 Finasteride 5 Mg Tablet PO Not Given DAILY [facility] Hydroxyzine HCl 25 mg 07/23/20 21:13 08/17/20 03:00 Hydroxyzine Hcl 25 Mg Tablet PO 25 mg BEDTIME PRN Administration Anxiety Loperamide HCl 2 mg 07/24/20 15:43 07/24/20 15:54 Loperamide Hcl 2 Mg Capsule PO 2 mg Q4H PRN Administration Diarrhea Magnesium Hydroxide 30 ml 07/23/20 21:13 Milk Of Magnesia 30 Ml Oral.Susp PO DAILY PRN Constipation Metformin HCl 500 mg 08/14/20 17:00 11/10/20 08:36 Metformin Hcl 500 Mg Tablet PO Not Given BIDWM [facility] Metoprolol Succinate 50 mg 10/16/20 13:00 11/10/20 08:37 Metoprolol Succinate Er 50 Mg Tab.Er.24h PO Not Given DAILY [facility] Protocol Multi-Ingred Cream/Lotion/Oil/Oint 1 appl 10/09/20 21:00 11/10/20 08:38 Mineral Oil/Petrolatum,White 106 Gm Tube TOPICAL 1 appl BID [facility] Administration Multivitamins/Minerals 1 tab 09/25/20 13:30 11/10/20 08:38 Multivitamin With Minerals Tablet PO Not Given DAILY [facility] Patient Own 1 each 08/14/20 10:27 08/14/20 12:06 Medication (Thera PO 1 each Breath Dry Mouth Q4H PRN Administration Lozenge) Dry Mouth Patient Own 1 each 08/14/20 10:30 11/10/20 08:39 Medication (Biotene PO Not Given 15 Ml) BID [facility] Nystatin 1 appl 07/26/20 19:25 11/10/20 08:39 Nystatin Cream 15 Gm Tube TOPICAL Not Given DAILY [facility] Protocol Olanzapine 20 mg 10/23/20 12:18 10/31/20 09:38 Olanzapine 10 Mg Vial IM 20 mg BID PRN Administration if pt ref po zydis per jim Olanzapine 20 mg 10/23/20 21:00 11/10/20 08:34 Olanzapine Odt 10 Mg Tab.Rapdis TRANSLINGU 20 mg BID [facility] Administration Omeprazole 20 mg 07/24/20 06:30 11/10/20 08:36 Omeprazole 20 Mg Capsule.Dr PO Not Given DAILY@0630 [facility] Saliva Substitute 1 spray 08/12/20 15:06 Dry Mouth [place] 30 Ml [place] MUCOUS MEM Q2H PRN Dry Mouth Trazodone HCl 50 mg 07/23/20 21:13 11/03/20 02:48 Trazodone Hcl 50 Mg Tablet PO 50 mg BEDTIME PRN Administration Insomnia Vitamin D 50 mcg 07/23/20 21:00 11/09/20 21:27 Cholecalciferol (Vitamin D3) 25 Mcg Tablet PO Not Given BEDTIME [facility] Allergies Allergies Allergy/AdvReac Type Severity Reaction Status Date / Time No Known Allergies Allergy Verified 07/21/20 16:39 Assessment & Plan Assessment & Plan (1) Schizophrenia, paranoid, subchronic with acute exacerbation: Status: Acute Code(s): F20.0 - Paranoid schizophrenia Assessment and Plan: Continue with plan below: Continue Zydis 20 mg bid. If pt refuses Zyprexa 20 mg bid IM. Lorazepam 1 mg q 4 hours prn agitation. conintue to encourage moving/ standing/walking Olanzapine level. Focus with pt on discharge related activities. Pt has been working with medications since 09/19/20. His progress is variable, slowed. This may be due to his hx of COVID-19. As a result, he will not be able to return to indepedent living soon, and will need a level of rehabilitative care which is not offered in subacute or nursing homes. We will apply for a [facility] admission but need to file for civil commitment prior to this application. Section VII filed[address] 11/06/20. CHD and family will testify regarding their concerns regarding pt's progress and response to [facility]' updates of medication. 11/03/20: Discussed medications with pt and brother. Continue Olanzapine. Increase Clozapine to 50 mg daily. Both are in agreement. Discussed slow titration to assist in improvement of symptoms vs pt feeling overmedicated as was his hesitation in the past to increase Clozapine. 11/04/20: Continue current regime. 11/05/20: Continue current regime. 11/06/20: Continue current regime and monitor meds for benefit. 11/10/2020: No changes to current primary team treatment plan on Clozaril titration (slow as agreed by pt and team). Assessment and Plan: No changes in plan of care today. Greater than 50% of the session was spent on counseling and/or coordination of care Reason for contiued inpatient stay Substantial Risk for: inability to function
[2020-11-11] MEDS: Mineral Oil/Petrolatum,White 106 GM Tube 1 APPL TOPICAL (08:07)
[2020-11-11] MEDS: Ferrous Sulfate 324 MG TABLET.DR PO (08:13)
[2020-11-11] MEDS: cloZAPine 25 MG TABLET 50 MG PO (08:13)
[2020-11-11] MEDS: Omeprazole 20 MG CAPSULE.DR PO (08:16)
[2020-11-11] MEDS: Finasteride 5 MG TABLET PO (08:18)
[2020-11-11] MEDS: OLANZapine ODT 10 MG TAB.RAPDIS 20 MG TRANSLINGU (08:39)
[2020-11-11] MEDS: metFORMIN HCl 500 MG TABLET PO (17:16)
[2020-11-12] MEDS: Mineral Oil/Petrolatum,White 106 GM Tube 1 APPL TOPICAL ×2 (08:25→21:48)
[2020-11-12] MEDS: metFORMIN HCl 500 MG TABLET PO (08:26)
[2020-11-12] MEDS: OLANZapine ODT 10 MG TAB.RAPDIS 20 MG TRANSLINGU ×2 (08:26→21:14)
[2020-11-12] MEDS: cloZAPine 25 MG TABLET 75 MG PO (08:28)
[2020-11-12] MEDS: Benztropine Mesylate 1 MG TABLET PO (08:29)
[2020-11-12] MEDS: Omeprazole 20 MG CAPSULE.DR PO (08:30)
[2020-11-12] MEDS: Finasteride 5 MG TABLET PO (08:33)
--- NOTE | 2020-11-12 16:35 | HO.PSYCHPN ---
Subjective Subjective Date of Service: 11/11/20 Reason For Visit: psychosis Subjective Notes: Section 7 Interim History: Juan declined breakfast and lunch as he thought that something was wrong with the food. He did accept take out which his brother purchased for him. Discussed with pt and brother Mina titration of Clozaril as he continues with breakthrough symptoms. Both agreed to increase to 75 mg daily. Medication Compliance: Yes Side effects from medications: No Attending Groups: No Review of Systems Acute medical concerns: No Medical Review of Systems: unchanged Review of Systems Psychiatric: Reports anxiety, Reports auditory hallucinations, Reports paranoia and Reports visual hallucinations Mental Status Exam Mental Status Exam Patient Appearance: Appropriate Patient Orientation: Person, Place, Time and Situation Level of Consciousness: Alert Patient Behavior: Appropriate, Guarded, Talkative, Suspicious, Fearful, Resistive to Care, Avoidant, Distractible and Poor Eye Contact Mood Description: Blunted Affect Description: Blunted Patient Cognition Impaired: Yes Ability to Follow Directions: Fair Speech Pattern: Spontaneous Speech Memory Description: Remote Impaired and Episodic Impaired Hallucinations: Auditory and Visual Delusions: Paranoid Ideation and Present Thought Process: Distracted Thought Content: positive for [place], positive for Perseveration, positive for Thought Blocking and positive for Tangential Depressive Symptoms: Changes in Appetite, Isolating-Friends/Family and Difficulty Concentrating Judgement: Poor Diagnostics Vital Signs (24Hr): Body Mass Index 38.4 Labs Results: 11/10/20 07:14 11/10/20 07:14 Imaging Radiology Impressions: ITS Impressions KUB X-Ray 07/22/20 17:13 IMPRESSION: Moderate volume of stool scattered in colon. No bowel obstruction. Medications Medications Current Medications Generic Name Dose Route Start Last Admin Trade Name [place] PRN Reason Stop Dose Admin Acetaminophen 650 mg 07/23/20 21:13 10/22/20 00:22 Acetaminophen 325 Mg Tablet PO 650 mg Q6H PRN Administration Headache/Pain Mild Scale (1-3) Al Hydroxide/Mg Hydroxide 30 ml 07/23/20 21:13 Magnesium Hydrox/Alum Hydrox 30 Ml Oral.Susp PO Q6H PRN Heartburn/Nausea Atorvastatin Calcium 80 mg 07/23/20 21:00 11/11/20 20:43 Atorvastatin Calcium 80 Mg Tablet PO Not Given BEDTIME [facility] Benztropine Mesylate 1 mg 10/08/20 21:00 11/12/20 08:29 Benztropine Mesylate 1 Mg Tablet PO 1 mg BID AM[facility]IO Administration Clozapine 75 mg 11/12/20 09:00 11/12/20 08:28 Clozapine 25 Mg Tablet PO 75 mg DAILY [facility] Administration Ferrous Sulfate 324 mg 09/02/20 09:00 11/12/20 08:54 Ferrous Sulfate 324 Mg Tablet. PO Not Given DAILY [facility] Finasteride 5 mg 07/23/20 17:00 11/12/20 08:33 Finasteride 5 Mg Tablet PO 5 mg DAILY [facility] Administration Hydroxyzine HCl 25 mg 07/23/20 21:13 08/17/20 03:00 Hydroxyzine Hcl 25 Mg Tablet PO 25 mg BEDTIME PRN Administration Anxiety Loperamide HCl 2 mg 07/24/20 15:43 07/24/20 15:54 Loperamide Hcl 2 Mg Capsule PO 2 mg Q4H PRN Administration Diarrhea Magnesium Hydroxide 30 ml 07/23/20 21:13 Milk Of Magnesia 30 Ml Oral.Susp PO DAILY PRN Constipation Metformin HCl 500 mg 08/14/20 17:00 11/12/20 08:26 Metformin Hcl 500 Mg Tablet PO 500 mg BIDWM [facility] Administration Metoprolol Succinate 50 mg 10/16/20 13:00 11/12/20 09:18 Metoprolol Succinate Er 50 Mg Tab.Er.24h PO Not Given DAILY [facility] Protocol Multi-Ingred Cream/Lotion/Oil/Oint 1 appl 10/09/20 21:00 11/12/20 08:25 Mineral Oil/Petrolatum,White 106 Gm Tube TOPICAL 1 appl BID [facility] Administration Multivitamins/Minerals 1 tab 09/25/20 13:30 11/12/20 08:29 Multivitamin With Minerals Tablet PO 1 tab DAILY [facility] Administration Nystatin 1 appl 07/26/20 19:25 11/12/20 09:18 Nystatin Cream 15 Gm Tube TOPICAL Not Given DAILY [facility] Protocol Olanzapine 20 mg 10/23/20 12:18 10/31/20 09:38 Olanzapine 10 Mg Vial IM 20 mg BID PRN Administration if pt ref po zydis rafy fernandez Olanzapine 20 mg 10/23/20 21:00 11/12/20 08:26 Olanzapine Odt 10 Mg Tab.Rapdis TRANSLINGU 20 mg BID AMBR[facility]IO Administration Omeprazole 20 mg 07/24/20 06:30 11/12/20 08:30 Omeprazole 20 Mg Capsule. PO 20 mg DAILY@0630 [facility] Administration Trazodone HCl 50 mg 07/23/20 21:13 11/03/20 02:48 Trazodone Hcl 50 Mg Tablet PO 50 mg BEDTIME PRN Administration Insomnia Vitamin D 50 mcg 07/23/20 21:00 11/11/20 20:43 Cholecalciferol (Vitamin D3) 25 Mcg Tablet PO Not Given BEDTIME [facility] Allergies Allergies Allergy/AdvReac Type Severity Reaction Status Date / Time No Known Allergies Allergy Verified 07/21/20 16:39 Assessment & Plan Assessment & Plan (1) Schizophrenia, paranoid, subchronic with acute exacerbation: Status: Acute Code(s): F20.0 - Paranoid schizophrenia Assessment and Plan: Continue with plan below: Assessment and Plan: Increase Clozaril to 75 mg daily Greater than 50% of the session was spent on counseling and/or coordination of care Patient educated on: medication risk/benefits Informed Consent: further education needed Reason for contiued inpatient stay Substantial Risk for: harm to self, harm to others, inability to function and med/psych decompensation
--- NOTE | 2020-11-12 16:59 | HO.PSYCHPN ---
Subjective Subjective Date of Service: 11/12/20 Reason For Visit: psychosis Subjective Notes: Section 7 Healthcare Proxy: Yes Guardianship: Yes ([facility]) Medical Problems Affecting Mental Status: No Interim History: Intermittent response to internal stimuli. Continues on one to one. Variable appetite. Team reports some brightening of affect at times. Clozaril titration encouraged by pt's brother-pt is apprehensive but agrees with brother. Team reviewing placement options with [facility]. Medication Compliance: Yes Side effects from medications: No Attending Groups: No Review of Systems Acute medical concerns: No Medical Review of Systems: unchanged Review of Systems Reports behavioral changes Psychiatric: Reports abnormal sleep pattern, Reports behavioral changes, Reports change in appetite, Reports depression, Reports difficulty concentrating, Reports auditory hallucinations, Reports mood swings, Reports paranoia and Reports visual hallucinations Mental Status Exam Mental Status Exam Patient Appearance: Appropriate Patient Orientation: Person, Place, Time and Situation Level of Consciousness: Alert Patient Behavior: Appropriate, Guarded, Talkative, Suspicious, Fearful, Resistive to Care, Avoidant, Distractible and Poor Eye Contact Mood Description: Blunted Affect Description: Blunted Patient Cognition Impaired: Yes Ability to Follow Directions: Fair Speech Pattern: Spontaneous Speech Memory Description: Remote Impaired and Episodic Impaired Hallucinations: Auditory and Visual Delusions: Paranoid Ideation and Present Thought Process: Distracted Thought Content: positive for [place], positive for Perseveration, positive for Thought Blocking and positive for Tangential Depressive Symptoms: Changes in Appetite, Isolating-Friends/Family and Difficulty Concentrating Judgement: Poor Diagnostics Vital Signs (24Hr): Body Mass Index 38.4 Labs Results: 11/10/20 07:14 11/10/20 07:14 Imaging Radiology Impressions: ITS Impressions KUB X-Ray 07/22/20 17:13 IMPRESSION: Moderate volume of stool scattered in colon. No bowel obstruction. Medications Medications Current Medications Generic Name Dose Route Start Last Admin Trade Name Freq PRN Reason Stop Dose Admin Acetaminophen 650 mg 07/23/20 21:13 10/22/20 00:22 Acetaminophen 325 Mg Tablet PO 650 mg Q6H PRN Administration Headache/Pain Mild Scale (1-3) Al Hydroxide/Mg Hydroxide 30 ml 07/23/20 21:13 Magnesium Hydrox/Alum Hydrox 30 Ml Oral.Susp PO Q6H PRN Heartburn/Nausea Atorvastatin Calcium 80 mg 07/23/20 21:00 11/11/20 20:43 Atorvastatin Calcium 80 Mg Tablet PO Not Given BEDTIME [facility] Benztropine Mesylate 1 mg 10/08/20 21:00 11/12/20 08:29 Benztropine Mesylate 1 Mg Tablet PO 1 mg BID [facility] Administration Clozapine 75 mg 11/12/20 09:00 11/12/20 08:28 Clozapine 25 Mg Tablet PO 75 mg DAILY [facility] Administration Ferrous Sulfate 324 mg 09/02/20 09:00 11/12/20 08:54 Ferrous Sulfate 324 Mg Tablet.Dr PO Not Given DAILY [facility] Finasteride 5 mg 07/23/20 17:00 11/12/20 08:33 Finasteride 5 Mg Tablet PO 5 mg DAILY [facility] Administration Hydroxyzine HCl 25 mg 07/23/20 21:13 08/17/20 03:00 Hydroxyzine Hcl 25 Mg Tablet PO 25 mg BEDTIME PRN Administration Anxiety Loperamide HCl 2 mg 07/24/20 15:43 07/24/20 15:54 Loperamide Hcl 2 Mg Capsule PO 2 mg Q4H PRN Administration Diarrhea Magnesium Hydroxide 30 ml 07/23/20 21:13 Milk Of Magnesia 30 Ml Oral.Susp PO DAILY PRN Constipation Metoprolol Succinate 50 mg 10/16/20 13:00 11/12/20 09:18 Metoprolol Succinate Er 50 Mg Tab.Er.24h PO Not Given DAILY [facility] Protocol Multi-Ingred Cream/Lotion/Oil/Oint 1 appl 10/09/20 21:00 11/12/20 08:25 Mineral Oil/Petrolatum,White 106 Gm Tube TOPICAL 1 appl BID [facility]IO Administration Multivitamins/Minerals 1 tab 09/25/20 13:30 11/12/20 08:29 Multivitamin With Minerals Tablet PO 1 tab DAILY [facility] Administration Nystatin 1 appl 07/26/20 19:25 11/12/20 09:18 Nystatin Cream 15 Gm Tube TOPICAL Not Given DAILY [facility] Protocol Olanzapine 20 mg 10/23/20 12:18 10/31/20 09:38 Olanzapine 10 Mg Vial IM 20 mg BID PRN Administration if pt ref po zydis per jim Olanzapine 20 mg 10/23/20 21:00 11/12/20 08:26 Olanzapine Odt 10 Mg Tab.Rapdis TRANSLINGU 20 mg BID [facility] Administration Omeprazole 20 mg 07/24/20 06:30 11/12/20 08:30 Omeprazole 20 Mg Capsule. PO 20 mg DAILY@0630 [facility] Administration Trazodone HCl 50 mg 07/23/20 21:13 11/03/20 02:48 Trazodone Hcl 50 Mg Tablet PO 50 mg BEDTIME PRN Administration Insomnia Vitamin D 50 mcg 07/23/20 21:00 11/11/20 20:43 Cholecalciferol (Vitamin D3) 25 Mcg Tablet PO Not Given BEDTIME [facility] Allergies Allergies Allergy/AdvReac Type Severity Reaction Status Date / Time No Known Allergies Allergy Verified 07/21/20 16:39 Assessment & Plan Assessment & Plan (1) Schizophrenia, paranoid, subchronic with acute exacerbation: Status: Acute Code(s): F20.0 - Paranoid schizophrenia Assessment and Plan: Continue with plan below: Assessment and Plan: Continue current regime. Greater than 50% of the session was spent on counseling and/or coordination of care Informed Consent: does not understand Reason for contiued inpatient stay Substantial Risk for: harm to self, harm to others, inability to function, rapid decompensation and med/psych decompensation
[2020-11-12] MEDS: Atorvastatin Calcium 80 MG TABLET PO (21:14)
[2020-11-12] MEDS: Cholecalciferol (Vitamin D3) 25 MCG TABLET 50 MCG PO (21:14)
[2020-11-13] MEDS: OLANZapine ODT 10 MG TAB.RAPDIS 20 MG TRANSLINGU (09:25)
[2020-11-13] MEDS: Benztropine Mesylate 1 MG TABLET PO (09:25)
[2020-11-13] MEDS: cloZAPine 25 MG TABLET 75 MG PO (09:25)
[2020-11-13] MEDS: Finasteride 5 MG TABLET PO (09:25)
[2020-11-13] MEDS: Omeprazole 20 MG CAPSULE.DR PO (09:25)
[2020-11-13] MEDS: Ferrous Sulfate 324 MG TABLET.DR PO (10:13)
[2020-11-13] MEDS: Nystatin Cream 15 GM TUBE 1 APPL TOPICAL (10:15)
[2020-11-13] MEDS: Mineral Oil/Petrolatum,White 106 GM Tube 1 APPL TOPICAL (10:15)
--- NOTE | 2020-11-13 13:07 | PC.NURSE ---
Pt refused v/s's and metoprolol
--- NOTE | 2020-11-13 17:09 | HO.PSYCHPN ---
Subjective Subjective Date of Service: 11/13/20 Reason For Visit: psychosis Subjective Notes: Section 7 Healthcare Proxy: Yes Guardianship: Yes ([facility]) Medical Problems Affecting Mental Status: No Interim History: Pt with gradual improvement which is inconsistent. Tolerating Clozaril 75 mg daily with Olanzapine. Eating and sleeping, more aware of surroundings and able to initiate more interactions with team. Medication Compliance: Yes Side effects from medications: No Attending Groups: No Review of Systems Acute medical concerns: No Medical Review of Systems: unchanged Review of Systems Reports behavioral changes and Reports memory loss Psychiatric: Reports behavioral changes, Reports change in appetite, Reports auditory hallucinations, Reports memory loss, Reports paranoia and Reports visual hallucinations Mental Status Exam Mental Status Exam Patient Appearance: Appropriate Patient Orientation: Person, Place and Situation Level of Consciousness: Alert Patient Behavior: Appropriate, Talkative, Resistive to Care, Avoidant and Distractible Mood Description: Blunted Affect Description: Blunted Patient Cognition Impaired: Yes Ability to Follow Directions: Fair Speech Pattern: Spontaneous Speech Memory Description: Remote Impaired and Episodic Impaired Hallucinations: Auditory and Visual Delusions: Present Thought Process: Distracted Thought Content: positive for [place] Depressive Symptoms: Changes in Appetite, Isolating-Friends/Family and Difficulty Concentrating Judgement: Fair Diagnostics Vital Signs (24Hr): Body Mass Index 38.4 Labs Results: 11/10/20 07:14 11/10/20 07:14 Imaging Radiology Impressions: ITS Impressions KUB X-Ray 07/22/20 17:13 IMPRESSION: Moderate volume of stool scattered in colon. No bowel obstruction. Medications Medications Current Medications Generic Name Dose Route Start Last Admin Trade Name Freq PRN Reason Stop Dose Admin Acetaminophen 650 mg 07/23/20 21:13 10/22/20 00:22 Acetaminophen 325 Mg Tablet PO 650 mg Q6H PRN Administration Headache/Pain Mild Scale (1-3) Al Hydroxide/Mg Hydroxide 30 ml 07/23/20 21:13 Magnesium Hydrox/Alum Hydrox 30 Ml Oral.Susp PO Q6H PRN Heartburn/Nausea Atorvastatin Calcium 80 mg 07/23/20 21:00 11/12/20 21:14 Atorvastatin Calcium 80 Mg Tablet PO 80 mg BEDTIME [facility] Administration Benztropine Mesylate 1 mg 10/08/20 21:00 11/13/20 09:25 Benztropine Mesylate 1 Mg Tablet PO 1 mg BID [facility] Administration Clozapine 75 mg 11/12/20 09:00 11/13/20 09:25 Clozapine 25 Mg Tablet PO 75 mg DAILY [facility] Administration Ferrous Sulfate 324 mg 09/02/20 09:00 11/13/20 10:13 Ferrous Sulfate 324 Mg Tablet. PO 324 mg DAILY [facility] Administration Finasteride 5 mg 07/23/20 17:00 11/13/20 09:25 Finasteride 5 Mg Tablet PO 5 mg DAILY [facility] Administration Hydroxyzine HCl 25 mg 07/23/20 21:13 08/17/20 03:00 Hydroxyzine Hcl 25 Mg Tablet PO 25 mg BEDTIME PRN Administration Anxiety Loperamide HCl 2 mg 07/24/20 15:43 07/24/20 15:54 Loperamide Hcl 2 Mg Capsule PO 2 mg Q4H PRN Administration Diarrhea Magnesium Hydroxide 30 ml 07/23/20 21:13 Milk Of Magnesia 30 Ml Oral.Susp PO DAILY PRN Constipation Metoprolol Succinate 50 mg 10/16/20 13:00 11/13/20 10:12 Metoprolol Succinate Er 50 Mg Tab.Er.24h PO Not Given DAILY [facility] Protocol Multi-Ingred Cream/Lotion/Oil/Oint 1 appl 10/09/20 21:00 11/13/20 10:15 Mineral Oil/Petrolatum,White 106 Gm Tube TOPICAL 1 appl BID [facility] Administration Multivitamins/Minerals 1 tab 09/25/20 13:30 11/13/20 09:25 Multivitamin With Minerals Tablet PO 1 tab DAILY [facility] Administration Nystatin 1 appl 07/26/20 19:25 11/13/20 10:15 Nystatin Cream 15 Gm Tube TOPICAL 1 appl DAILY [facility] Administration Protocol Olanzapine 20 mg 10/23/20 12:18 10/31/20 09:38 Olanzapine 10 Mg Vial IM 20 mg BID PRN Administration if pt ref po zydis per jim Olanzapine 20 mg 10/23/20 21:00 11/13/20 09:25 Olanzapine Odt 10 Mg Tab.Rapdis TRANSLINGU 20 mg BID [facility] Administration Omeprazole 20 mg 07/24/20 06:30 11/13/20 09:25 Omeprazole 20 Mg Capsule. PO 20 mg DAILY@0630 [facility] Administration Trazodone HCl 50 mg 07/23/20 21:13 11/03/20 02:48 Trazodone Hcl 50 Mg Tablet PO 50 mg BEDTIME PRN Administration Insomnia Vitamin D 50 mcg 07/23/20 21:00 11/12/20 21:14 Cholecalciferol (Vitamin D3) 25 Mcg Tablet PO 50 mcg BEDTIME [facility] Administration Allergies Allergies Allergy/AdvReac Type Severity Reaction Status Date / Time No Known Allergies Allergy Verified 07/21/20 16:39 Assessment & Plan Assessment & Plan (1) Schizophrenia, paranoid, subchronic with acute exacerbation: Status: Acute Code(s): F20.0 - Paranoid schizophrenia Assessment and Plan: Continue with plan below: Assessment and Plan: Continue current regime. Greater than 50% of the session was spent on counseling and/or coordination of care Informed Consent: does not understand Reason for contiued inpatient stay Substantial Risk for: harm to self, harm to others, inability to function, rapid decompensation and med/psych decompensation
[2020-11-14] MEDS: OLANZapine ODT 10 MG TAB.RAPDIS 20 MG TRANSLINGU ×2 (09:09→20:21)
[2020-11-14] MEDS: Ferrous Sulfate 324 MG TABLET.DR PO (09:09)
--- NOTE | 2020-11-14 12:06 | HO.PSYCHPN ---
Subjective Subjective Date of Service: 11/14/20 Reason For Visit: psychosis Subjective Notes: Section 7 Healthcare Proxy: Yes Guardianship: Yes Medical Problems Affecting Mental Status: No Interim History: Walking in the milieu briefly. Responding to internal stimuli at times with some more attentiveness to his environment. Will titrate Clozapine on 11/17. Medication Compliance: Yes Side effects from medications: No Attending Groups: No Review of Systems Acute medical concerns: No Medical Review of Systems: unchanged Review of Systems Reports behavioral changes and Reports memory loss Psychiatric: Reports behavioral changes, Reports change in appetite, Reports auditory hallucinations, Reports memory loss, Reports paranoia and Reports visual hallucinations Mental Status Exam Mental Status Exam Patient Appearance: Appropriate Patient Orientation: Person, Place and Situation Level of Consciousness: Alert Patient Behavior: Appropriate, Talkative, Resistive to Care, Avoidant and Distractible Mood Description: Blunted Affect Description: Blunted Patient Cognition Impaired: Yes Ability to Follow Directions: Fair Speech Pattern: Spontaneous Speech Memory Description: Remote Impaired and Episodic Impaired Hallucinations: Auditory and Visual Delusions: Present Thought Process: Distracted Thought Content: positive for [place] Depressive Symptoms: Changes in Appetite, Isolating-Friends/Family and Difficulty Concentrating Judgement: Fair Diagnostics Vital Signs (24Hr): Body Mass Index 38.4 Labs Results: 11/10/20 07:14 11/10/20 07:14 Imaging Radiology Impressions: ITS Impressions KUB X-Ray 07/22/20 17:13 IMPRESSION: Moderate volume of stool scattered in colon. No bowel obstruction. Medications Medications Current Medications Generic Name Dose Route Start Last Admin Trade Name Freq PRN Reason Stop Dose Admin Acetaminophen 650 mg 07/23/20 21:13 10/22/20 00:22 Acetaminophen 325 Mg Tablet PO 650 mg Q6H PRN Administration Headache/Pain Mild Scale (1-3) Al Hydroxide/Mg Hydroxide 30 ml 07/23/20 21:13 Magnesium Hydrox/Alum Hydrox 30 Ml Oral.Susp PO Q6H PRN Heartburn/Nausea Atorvastatin Calcium 80 mg 07/23/20 21:00 11/14/20 00:23 Atorvastatin Calcium 80 Mg Tablet PO Not Given BEDTIME [facility] Benztropine Mesylate 1 mg 10/08/20 21:00 11/14/20 09:19 Benztropine Mesylate 1 Mg Tablet PO Not Given BID [facility] Clozapine 75 mg 11/12/20 09:00 11/14/20 09:19 Clozapine 25 Mg Tablet PO Not Given DAILY [facility] Ferrous Sulfate 324 mg 09/02/20 09:00 11/14/20 09:09 Ferrous Sulfate 324 Mg Tablet. PO 324 mg DAILY [facility] Administration Finasteride 5 mg 07/23/20 17:00 11/14/20 09:19 Finasteride 5 Mg Tablet PO Not Given DAILY [facility] Hydroxyzine HCl 25 mg 07/23/20 21:13 08/17/20 03:00 Hydroxyzine Hcl 25 Mg Tablet PO 25 mg BEDTIME PRN Administration Anxiety Loperamide HCl 2 mg 07/24/20 15:43 07/24/20 15:54 Loperamide Hcl 2 Mg Capsule PO 2 mg Q4H PRN Administration Diarrhea Magnesium Hydroxide 30 ml 07/23/20 21:13 Milk Of Magnesia 30 Ml Oral.Susp PO DAILY PRN Constipation Metoprolol Succinate 50 mg 10/16/20 13:00 11/14/20 09:19 Metoprolol Succinate Er 50 Mg Tab.Er.24h PO Not Given DAILY [facility] Protocol Multi-Ingred Cream/Lotion/Oil/Oint 1 appl 10/09/20 21:00 11/14/20 09:19 Mineral Oil/Petrolatum,White 106 Gm Tube TOPICAL Not Given BID [facility] Multivitamins/Minerals 1 tab 09/25/20 13:30 11/14/20 09:19 Multivitamin With Minerals Tablet PO Not Given DAILY [facility] Nystatin 1 appl 07/26/20 19:25 11/14/20 09:19 Nystatin Cream 15 Gm Tube TOPICAL Not Given DAILY [facility] Protocol Olanzapine 20 mg 10/23/20 12:18 10/31/20 09:38 Olanzapine 10 Mg Vial IM 20 mg BID PRN Administration if pt ref po zydis per jim Olanzapine 20 mg 10/23/20 21:00 11/14/20 09:09 Olanzapine Odt 10 Mg Tab.Rapdis TRANSLINGU 20 mg BID AMBROCIO Administration Omeprazole 20 mg 07/24/20 06:30 11/14/20 09:19 Omeprazole 20 Mg Capsule. PO Not Given DAILY@0630 [facility] Trazodone HCl 50 mg 07/23/20 21:13 11/03/20 02:48 Trazodone Hcl 50 Mg Tablet PO 50 mg BEDTIME PRN Administration Insomnia Vitamin D 50 mcg 07/23/20 21:00 11/14/20 00:23 Cholecalciferol (Vitamin D3) 25 Mcg Tablet PO Not Given BEDTIME [facility] Allergies Allergies Allergy/AdvReac Type Severity Reaction Status Date / Time No Known Allergies Allergy Verified 07/21/20 16:39 Assessment & Plan Assessment & Plan (1) Schizophrenia, paranoid, subchronic with acute exacerbation: Status: Acute Code(s): F20.0 - Paranoid schizophrenia Assessment and Plan: Continue with plan below: Assessment and Plan: Continue current regime. Increase Clozaril to 100 mg on 11/17/20. Greater than 50% of the session was spent on counseling and/or coordination of care Informed Consent: does not understand Reason for contiued inpatient stay Substantial Risk for: harm to self, harm to others, inability to function and rapid decompensation
[2020-11-14] MEDS: cloZAPine 25 MG TABLET 75 MG PO (14:05)
--- NOTE | 2020-11-14 14:46 | MHC.CLN ---
NUTRITION FOLLOW UP WEIGHT STABLE SINCE 09/12/20. EATING WELL AND TAKING ENSURE SUPPLEMENT 240 ML BID (700 KCAL/40 G PROTEIN). ENGAGED IN CONVERSATION WITH THIS MANAGER GOLF. CONTINUE REGULAR DIET WITH SUPPLEMENT.
[2020-11-15] MEDS: cloZAPine 25 MG TABLET 75 MG PO (08:22)
[2020-11-15] MEDS: Ferrous Sulfate 324 MG TABLET.DR PO (08:23)
[2020-11-15] MEDS: OLANZapine ODT 10 MG TAB.RAPDIS 20 MG TRANSLINGU (08:23)
[2020-11-15] MEDS: OLANZapine 10 MG VIAL 20 MG IM (20:54)
--- NOTE | 2020-11-16 00:28 | P.PNPSI_ITS ---
Subjective Subjective Date of Service: 11/15/20 Reason For Visit: psychosis Subjective Notes: Stephen Warning and Section 7 Interim History: Patient seen and discussed with team. Per social staff worker, he continues to require 1:1 safety checks, has medical co-morbidities but refuses PO medical meds other than iron. He has been reporting command hallucinations the past 3 days. RN also reports providing education on fluid restriction, has been drinking three pitchers of water on overnight and drinking more today. RN requests for biotine to be renewed due to dry mouth, as well as lozenges. Juan continues to refuse his HAYDEN stocking, educated on risks of walking around baref oot, has not been elevating legs. Patient evaluated this morning and upon interview he reports his mood is good, sleep is good. He is watching a movie, says i like these [place] movies, funny comedy with a little drama thrown in. Appetite is good. He asks why he cant go barefoot, discussed risks, wearing his socks today. In the milieu, patient is safe in behavior, overall isolates in his room and watches television in chair. Denies SI/SIB/HI upon inquiry. Denies irritability or assaultive ideation. Says he feels safe. Medication Compliance: Intermittent Side effects from medications: No Attending Groups: No Review of Systems Medical Review of Systems: unchanged Mental Status Exam Mental Status Exam Narrative: Patient Appearance:?Appropriate Patient Orientation:?Person, Place and Situation Level of Consciousness:?Alert Patient Behavior:?Appropriate, Talkative, Resistive to Care, Avoidant and Distractible Mood Description:?Blunted Affect Description:?Blunted Patient Cognition Impaired:?Yes Ability to Follow Directions:?Fair Speech Pattern:?Spontaneous Speech Memory Description:?Remote Impaired and Episodic Impaired Hallucinations:?Auditory and Visual Delusions:?Present Thought Process:?Distracted Thought Content:?positive for [place] Depressive Symptoms:?Changes in Appetite, Isolating-Friends/Family and Difficulty Concentrating Judgement:?Fair Diagnostics Vital Signs (24Hr): Body Mass Index 38.4 Labs Results: 11/10/20 07:14 11/10/20 07:14 Imaging Radiology Impressions: ITS Impressions KUB X-Ray 07/22/20 17:13 IMPRESSION: Moderate volume of stool scattered in colon. No bowel obstruction. Medications Medications Current Medications Generic Name Dose Route Start Last Admin Trade Name Freq PRN Reason Stop Dose Admin Acetaminophen 650 mg 07/23/20 21:13 10/22/20 00:22 Acetaminophen 325 Mg Tablet PO 650 mg Q6H PRN Administration Headache/Pain Mild Scale (1-3) Al Hydroxide/Mg Hydroxide 30 ml 07/23/20 21:13 Magnesium Hydrox/Alum Hydrox 30 Ml Oral.Susp PO Q6H PRN Heartburn/Nausea Atorvastatin Calcium 80 mg 07/23/20 21:00 11/15/20 20:21 Atorvastatin Calcium 80 Mg Tablet PO Not Given BEDTIME [facility] Benztropine Mesylate 1 mg 10/08/20 21:00 11/15/20 20:21 Benztropine Mesylate 1 Mg Tablet PO Not Given BID [facility] Clozapine 75 mg 11/12/20 09:00 11/15/20 08:22 Clozapine 25 Mg Tablet PO 11/16/20 09:01 75 mg DAILY [facility] Administration Clozapine 100 mg 11/17/20 08:00 Clozapine 100 Mg Tablet PO DAILY [facility] Ferrous Sulfate 324 mg 09/02/20 09:00 11/15/20 08:23 Ferrous Sulfate 324 Mg Tablet. PO 324 mg DAILY [facility] Administration Finasteride 5 mg 07/23/20 17:00 11/15/20 08:32 Finasteride 5 Mg Tablet PO Not Given DAILY [facility] Hydroxyzine HCl 25 mg 07/23/20 21:13 08/17/20 03:00 Hydroxyzine Hcl 25 Mg Tablet PO 25 mg BEDTIME PRN Administration Anxiety Loperamide HCl 2 mg 07/24/20 15:43 07/24/20 15:54 Loperamide Hcl 2 Mg Capsule PO 2 mg Q4H PRN Administration Diarrhea Magnesium Hydroxide 30 ml 07/23/20 21:13 Milk Of Magnesia 30 Ml Oral.Susp PO DAILY PRN Constipation Metoprolol Succinate 50 mg 10/16/20 13:00 11/15/20 08:32 Metoprolol Succinate Er 50 Mg Tab.Er.24h PO Not Given DAILY [facility] Protocol Multi-Ingred Cream/Lotion/Oil/Oint 1 appl 10/09/20 21:00 11/15/20 20:21 Mineral Oil/Petrolatum,White 106 Gm Tube TOPICAL Not Given BID [facility] Multivitamins/Minerals 1 tab 09/25/20 13:30 11/15/20 08:32 Multivitamin With Minerals Tablet PO Not Given DAILY [facility] Patient Own Med ( 1 each 11/15/20 15:15 Biotene) PO TID PRN xerostomia Nystatin 1 appl 07/26/20 19:25 11/15/20 08:33 Nystatin Cream 15 Gm Tube TOPICAL Not Given DAILY [facility] Protocol Olanzapine 20 mg 10/23/20 12:18 11/15/20 20:54 Olanzapine 10 Mg Vial IM 20 mg BID PRN Administration if pt ref po zydis per jim Olanzapine 20 mg 10/23/20 21:00 11/15/20 20:46 Olanzapine Odt 10 Mg Tab.Rapdis TRANSLINGU Not Given BID [facility] Omeprazole 20 mg 07/24/20 06:30 11/15/20 08:32 Omeprazole 20 Mg Capsule. PO Not Given DAILY@0630 [facility] Trazodone HCl 50 mg 07/23/20 21:13 11/03/20 02:48 Trazodone Hcl 50 Mg Tablet PO 50 mg BEDTIME PRN Administration Insomnia Vitamin D 50 mcg 07/23/20 21:00 11/15/20 20:21 Cholecalciferol (Vitamin D3) 25 Mcg Tablet PO Not Given BEDTIME [facility] Allergies Allergies Allergy/AdvReac Type Severity Reaction Status Date / Time No Known Allergies Allergy Verified 07/21/20 16:39 Assessment & Plan Assessment & Plan (1) Schizophrenia, paranoid, subchronic with acute exacerbation: Status: Acute Code(s): F20.0 - Paranoid schizophrenia Assessment and Plan: Continue with plan below: Assessment and Plan: Continue current regime. Increase Clozaril to 100 mg on 11/17/20. Continues to struggle with ADLs and present with poor insight into his sx or risks/ benefits of not treating health issues. Greater than 50% of the session was spent on counseling and/or coordination of care Reason for contiued inpatient stay Substantial Risk for: inability to function, rapid decompensation and med/psych decompensation
[2020-11-16] MEDS: OLANZapine ODT 10 MG TAB.RAPDIS 20 MG TRANSLINGU ×2 (08:27→22:14)
[2020-11-16] MEDS: Ferrous Sulfate 324 MG TABLET.DR PO (08:27)
--- NOTE | 2020-11-16 15:06 | HO.PSYCHPN ---
Subjective Subjective Date of Service: 11/17/20 Reason For Visit: psychosis Subjective Notes: Stephen Warning and Section 7 Interim History: Patient seen and discussed with team. Per director staffing, he continues to require 1:1 safety checks, has medical co-morbidities but refuses PO medical meds other than iron. RN continues to report Juan doesnt want to elevate feet despite hx of edema. RN is concerned with polyuria, polydipsia- will order urine osmolality/ electrolytes. He refused clozapine today. Has been limited to two water pitchers per shift. Patient evaluated this morning and upon interview he reports his mood is good and he is feeling alright, sleep is good. Denies having questions or concerns, watching football. In the milieu, patient is safe in behavior, overall isolates in his room and watches television in chair. Denies SI/SIB/HI upon inquiry. Denies irritability or assaultive ideation. Says he feels safe. Medication Compliance: Intermittent Side effects from medications: No Attending Groups: No Review of Systems Medical Review of Systems: unchanged Mental Status Exam Mental Status Exam Narrative: Narrative:?Patient Appearance:?Appropriate Patient Orientation:?Person, Place and Situation Level of Consciousness:?Alert Patient Behavior:?Appropriate, Talkative, Resistive to Care, Avoidant and Distractible Mood Description:?Blunted Affect Description:?Blunted Patient Cognition Impaired:?Yes Ability to Follow Directions:?Fair Speech Pattern:?Spontaneous Speech Memory Description:?Remote Impaired and Episodic Impaired Hallucinations:?Auditory and Visual Delusions:?Present Thought Process:?Distracted Thought Content:?positive for [place] Depressive Symptoms:?Changes in Appetite, Isolating-Friends/Family and Difficulty Concentrating Judgement:?Fair Diagnostics Vital Signs (24Hr): Body Mass Index 38.4 Labs Results: 11/10/20 07:14 11/10/20 07:14 Imaging Radiology Impressions: ITS Impressions KUB X-Ray 07/22/20 17:13 IMPRESSION: Moderate volume of stool scattered in colon. No bowel obstruction. Medications Medications Current Medications Generic Name Dose Route Start Last Admin Trade Name Freq PRN Reason Stop Dose Admin Acetaminophen 650 mg 07/23/20 21:13 10/22/20 00:22 Acetaminophen 325 Mg Tablet PO 650 mg Q6H PRN Administration Headache/Pain Mild Scale (1-3) Al Hydroxide/Mg Hydroxide 30 ml 07/23/20 21:13 Magnesium Hydrox/Alum Hydrox 30 Ml Oral.Susp PO Q6H PRN Heartburn/Nausea Atorvastatin Calcium 80 mg 07/23/20 21:00 11/15/20 20:21 Atorvastatin Calcium 80 Mg Tablet PO Not Given BEDTIME [facility] Benztropine Mesylate 1 mg 10/08/20 21:00 11/16/20 08:30 Benztropine Mesylate 1 Mg Tablet PO Not Given BID [facility] Clozapine 100 mg 11/17/20 08:00 Clozapine 100 Mg Tablet PO DAILY [facility] Ferrous Sulfate 324 mg 09/02/20 09:00 11/16/20 08:27 Ferrous Sulfate 324 Mg Tablet. PO 324 mg DAILY [facility] Administration Finasteride 5 mg 07/23/20 17:00 11/16/20 08:31 Finasteride 5 Mg Tablet PO Not Given DAILY [facility] Hydroxyzine HCl 25 mg 07/23/20 21:13 08/17/20 03:00 Hydroxyzine Hcl 25 Mg Tablet PO 25 mg BEDTIME PRN Administration Anxiety Loperamide HCl 2 mg 07/24/20 15:43 07/24/20 15:54 Loperamide Hcl 2 Mg Capsule PO 2 mg Q4H PRN Administration Diarrhea Magnesium Hydroxide 30 ml 07/23/20 21:13 Milk Of Magnesia 30 Ml Oral.Susp PO DAILY PRN Constipation Metoprolol Succinate 50 mg 10/16/20 13:00 11/16/20 08:31 Metoprolol Succinate Er 50 Mg Tab.Er.24h PO Not Given DAILY [facility] Protocol Multi-Ingred Cream/Lotion/Oil/Oint 1 appl 10/09/20 21:00 11/16/20 08:31 Mineral Oil/Petrolatum,White 106 Gm Tube TOPICAL Not Given BID [facility] Multivitamins/Minerals 1 tab 09/25/20 13:30 11/16/20 08:31 Multivitamin With Minerals Tablet PO Not Given DAILY [facility] Patient Own Med ( 1 each 11/15/20 15:15 Biotene) PO TID PRN xerostomia Patient Own 1 each 11/16/20 13:28 11/16/20 13:38 Medication (Thera PO 1 each Breath Dry Mouth Q4H PRN Administration Lozenge) Dry Mouth Nystatin 1 appl 07/26/20 19:25 11/16/20 08:31 Nystatin Cream 15 Gm Tube TOPICAL Not Given DAILY [facility] Protocol Olanzapine 20 mg 10/23/20 12:18 11/15/20 20:54 Olanzapine 10 Mg Vial IM 20 mg BID PRN Administration if pt ref po zydis rafy fernandez Olanzapine 20 mg 10/23/20 21:00 11/16/20 08:27 Olanzapine Odt 10 Mg Tab.Sundeep HAYWARDINGU 20 mg BID [facility] Administration Omeprazole 20 mg 07/24/20 06:30 11/16/20 08:30 Omeprazole 20 Mg Capsule. PO Not Given DAILY@0630 [facility] Trazodone HCl 50 mg 07/23/20 21:13 11/03/20 02:48 Trazodone Hcl 50 Mg Tablet PO 50 mg BEDTIME PRN Administration Insomnia Vitamin D 50 mcg 07/23/20 21:00 11/15/20 20:21 Cholecalciferol (Vitamin D3) 25 Mcg Tablet PO Not Given BEDTIME [facility] Allergies Allergies Allergy/AdvReac Type Severity Reaction Status Date / Time No Known Allergies Allergy Verified 07/21/20 16:39 Assessment & Plan Assessment & Plan (1) Schizophrenia, paranoid, subchronic with acute exacerbation: Status: Acute Code(s): F20.0 - Paranoid schizophrenia Assessment and Plan: Continue with plan below: Assessment and Plan: Continue current regime. Increase Clozaril to 100 mg on 11/17/20. Continues to struggle with ADLs and present with poor insight into his sx or risks/ benefits of not treating health issues. Will monitor urine electrolytes/ urine osmolality due to RN concerns for polydipsia. Greater than 50% of the session was spent on counseling and/or coordination of care Reason for contiued inpatient stay Substantial Risk for: inability to function, rapid decompensation and med/psych decompensation
[2020-11-17] MEDS: Ferrous Sulfate 324 MG TABLET.DR PO (08:12)
[2020-11-17] MEDS: OLANZapine ODT 10 MG TAB.RAPDIS 20 MG TRANSLINGU ×2 (08:12→22:13)
[2020-11-17] MEDS: Omeprazole 20 MG CAPSULE.DR PO (08:13)
[2020-11-17] MEDS: Finasteride 5 MG TABLET PO (08:13)
[2020-11-17] MEDS: cloZAPine 100 MG TABLET PO (08:13)
[2020-11-17] MEDS: Benztropine Mesylate 1 MG TABLET PO (08:13)
[2020-11-17] MEDS: Mineral Oil/Petrolatum,White 106 GM Tube 1 APPL TOPICAL (08:18)
[2020-11-17 08:28] LABS: Alanine Aminotransferase 17 U/L (0-40); Albumin Level 3.6 g/dL (3.5-5.0); Alkaline Phosphatase 66 U/L (39-117); Anion Gap 11 (12-20); Aspartate Amino Transferase 12 U/L (5-37); Bilirubin Total 0.4 mg/dL (0.0-1.0); Blood Urea Nitrogen 15 mg/dL (9-16); Calcium 9.7 mg/dL (8.4-10.2); Carbon Dioxide 29 mmol/L (22-29); Chloride 104 mmol/L (96-108); Creatinine Clr Calc Pharmacy 165.7; Estimated Glomerular Filt Rate > 60; Glucose Random 131 mg/dL (60-115); Potassium 4.5 mmol/L (3.3-5.1); Sodium 139 mmol/L (135-145); Total Protein 6.3 g/dL (6.5-8.0)
--- NOTE | 2020-11-17 10:26 | P.PNPSI_ITS ---
Subjective Subjective Date of Service: 11/17/20 Reason For Visit: psychosis Interim History: seen on 11/17 technical writer and editor covering and saw patient briefly. Pt tired today AH but not bothersome Agrees Clozaril helps Mental Status Exam Mental Status Exam Narrative: Patient Appearance:?Appropriate Patient Orientation:?Person, Place and Situation Level of Consciousness:?Alert Patient Behavior:?Appropriate Mood Description:?Blunted Affect Description:?Blunted Patient Cognition Impaired:?Yes Ability to Follow Directions:?Fair Speech Pattern:?Spontaneous Speech Memory Description:?Remote Impaired and Episodic Impaired Hallucinations:?AH Delusions:?Present Thought Process:?goal oriented Thought Content: sparse Judgement:?Fair Diagnostics Vital Signs (24Hr): Body Mass Index 38.4 Labs Results: 11/10/20 07:14 11/17/20 08:04 Labs: Laboratory Results - last 48 hr 11/17/20 08:04 Sodium 139 Potassium 4.5 Chloride 104 Carbon Dioxide 29 Anion Gap 11 L BUN 15 Creatinine 0.79 Estim Creat Clear Calc 165.7 Estimated GFR > 60 Random Glucose 131 H Calcium 9.7 D Total Bilirubin 0.4 AST 12 ALT 17 Alkaline Phosphatase 66 Total Protein 6.3 L Albumin 3.6 Imaging Radiology Impressions: ITS Impressions KUB X-Ray 07/22/20 17:13 IMPRESSION: Moderate volume of stool scattered in colon. No bowel obstruction. Medications Medications Current Medications Generic Name Dose Route Start Last Admin Trade Name Freq PRN Reason Stop Dose Admin Acetaminophen 650 mg 07/23/20 21:13 10/22/20 00:22 Acetaminophen 325 Mg Tablet PO 650 mg Q6H PRN Administration Headache/Pain Mild Scale (1-3) Al Hydroxide/Mg Hydroxide 30 ml 07/23/20 21:13 Magnesium Hydrox/Alum Hydrox 30 Ml Oral.Susp PO Q6H PRN Heartburn/Nausea Atorvastatin Calcium 80 mg 07/23/20 21:00 11/16/20 22:17 Atorvastatin Calcium 80 Mg Tablet PO Not Given BEDTIME [facility]BROCIO Benztropine Mesylate 1 mg 10/08/20 21:00 11/17/20 08:13 Benztropine Mesylate 1 Mg Tablet PO 1 mg BID AMBROCIO Administration Clozapine 100 mg 11/17/20 08:00 11/17/20 09:00 Clozapine 100 Mg Tablet PO Not Given DAILY [facility]BR[facility] Ferrous Sulfate 324 mg 09/02/20 09:00 11/17/20 08:12 Ferrous Sulfate 324 Mg Tablet. PO 324 mg DAILY [facility]OCIO Administration Finasteride 5 mg 07/23/20 17:00 11/17/20 08:13 Finasteride 5 Mg Tablet PO 5 mg DAILY [facility] Administration Hydroxyzine HCl 25 mg 07/23/20 21:13 08/17/20 03:00 Hydroxyzine Hcl 25 Mg Tablet PO 25 mg BEDTIME PRN Administration Anxiety Loperamide HCl 2 mg 07/24/20 15:43 07/24/20 15:54 Loperamide Hcl 2 Mg Capsule PO 2 mg Q4H PRN Administration Diarrhea Magnesium Hydroxide 30 ml 07/23/20 21:13 Milk Of Magnesia 30 Ml Oral.Susp PO DAILY PRN Constipation Metoprolol Succinate 50 mg 10/16/20 13:00 11/17/20 08:59 Metoprolol Succinate Er 50 Mg Tab.Er.24h PO Not Given DAILY [facility] Protocol Multi-Ingred Cream/Lotion/Oil/Oint 1 appl 10/09/20 21:00 11/17/20 08:18 Mineral Oil/Petrolatum,White 106 Gm Tube TOPICAL 1 appl BID AMBROCIO Administration Multivitamins/Minerals 1 tab 09/25/20 13:30 11/17/20 08:12 Multivitamin With Minerals Tablet PO 1 tab DAILY [facility] Administration Patient Own Med ( 1 each 11/15/20 15:15 Biotene) PO TID PRN xerostomia Patient Own 1 each 11/16/20 13:28 11/16/20 13:38 Medication (Thera PO 1 each Breath Dry Mouth Q4H PRN Administration Lozenge) Dry Mouth Nystatin 1 appl 07/26/20 19:25 11/17/20 08:18 Nystatin Cream 15 Gm Tube TOPICAL Not Given DAILY [facility] Protocol Olanzapine 20 mg 10/23/20 12:18 11/15/20 20:54 Olanzapine 10 Mg Vial IM 20 mg BID PRN Administration if pt ref po zydis rafy fernandez Olanzapine 20 mg 10/23/20 21:00 11/17/20 08:12 Olanzapine Odt 10 Mg Tab.Sundeep TRANSLINGU 20 mg BID AMBROCIO Administration Omeprazole 20 mg 07/24/20 06:30 11/17/20 08:13 Omeprazole 20 Mg Capsule. PO 20 mg DAILY@0630 [facility]IO Administration Trazodone HCl 50 mg 07/23/20 21:13 11/03/20 02:48 Trazodone Hcl 50 Mg Tablet PO 50 mg BEDTIME PRN Administration Insomnia Vitamin D 50 mcg 07/23/20 21:00 11/16/20 22:18 Cholecalciferol (Vitamin D3) 25 Mcg Tablet PO Not Given BEDTIME [facility]IO Allergies Allergies Allergy/AdvReac Type Severity Reaction Status Date / Time No Known Allergies Allergy Verified 07/21/20 16:39 Assessment & Plan Assessment & Plan (1) Schizophrenia, paranoid, subchronic with acute exacerbation: Status: Chronic Code(s): F20.0 - Paranoid schizophrenia Assessment and Plan: Continue with plan below: Assessment and Plan: technical writer and editor covering No changes to treatment plan Clozaril to 100 mg on 11/17/20. Continues to struggle with ADLs and present with poor insight into his sx or risks/ benefits of not treating health issues. Will monitor urine electrolytes/ urine osmolality due to RN concerns for polydipsia. Greater than 50% of the session was spent on counseling and/or coordination of care Reason for contiued inpatient stay Substantial Risk for: inability to function and rapid decompensation
[2020-11-17 14:34] LABS: Potassium Urine Random 16.4 mmol/L
[2020-11-17 14:38] LABS: Osmolality Urine 215 mosm/kg (373-1093)
[2020-11-18 08:46] VITALS: BP 122/65; PULSE 91; O2SAT 97
[2020-11-18] MEDS: Mineral Oil/Petrolatum,White 106 GM Tube 1 APPL TOPICAL (09:08)
[2020-11-18] MEDS: OLANZapine ODT 10 MG TAB.RAPDIS 20 MG TRANSLINGU (09:08)
[2020-11-18] MEDS: Finasteride 5 MG TABLET PO (09:08)
[2020-11-18 09:09] VITALS: BP 122/65; PULSE 91
[2020-11-18] MEDS: Benztropine Mesylate 1 MG TABLET PO (09:09)
[2020-11-18] MEDS: Ferrous Sulfate 324 MG TABLET.DR PO (09:09)
[2020-11-18] MEDS: cloZAPine 100 MG TABLET PO (09:09)
[2020-11-18] MEDS: Metoprolol Succinate ER 50 MG TAB.ER.24H PO (09:09)
[2020-11-18] MEDS: Omeprazole 20 MG CAPSULE.DR PO (09:09)
--- NOTE | 2020-11-18 13:40 | P.PNPSI_ITS ---
Subjective Subjective Date of Service: 11/18/20 Reason For Visit: psychosis Subjective Notes: Conditional Voluntary Healthcare Proxy: Yes Guardianship: Yes ([facility]) Medical Problems Affecting Mental Status: No Interim History: Accepting and tolerating Clozaril 100 mg daily. 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 Appears more alert and attentive in his environment. He did allow vital signs to be taken. Reports ongoing difficulty in sleep. Medication Compliance: Yes Side effects from medications: No Attending Groups: No Review of Systems Acute medical concerns: No Medical Review of Systems: unchanged Review of Systems Reports behavioral changes Psychiatric: Reports abnormal sleep pattern, Reports behavioral changes, Reports difficulty concentrating, Reports auditory hallucinations and Reports paranoia Mental Status Exam Mental Status Exam Patient Appearance: Appropriate Patient Orientation: Person, Place, Time and Situation Level of Consciousness: Alert Patient Behavior: Appropriate, Guarded, Talkative, Suspicious and Good Eye Contact Mood Description: Constricted Affect Description: Constricted Patient Cognition Impaired: Yes Ability to Follow Directions: Good Speech Pattern: Spontaneous Speech Memory Description: Remote Impaired and Episodic Impaired Hallucinations: Auditory Delusions: Paranoid Ideation and Present Thought Process: Distracted, Slowed Thinking and Confusion Thought Content: positive for [place] and positive for Thought Blocking Judgement: Poor Diagnostics Vital Signs (24Hr): Vital Signs - 24 hr 11/18/20 08:46 11/18/20 09:09 Pulse Rate 91 91 Blood Pressure 122/65 122/65 Pulse Oximetry 97 Body Mass Index 38.4 Labs Results: 11/10/20 07:14 11/17/20 08:04 Labs: Laboratory Results - last 48 hr 11/17/20 11/17/20 11/17/20 08:04 13:38 13:39 Sodium 139 Potassium 4.5 Chloride 104 Carbon Dioxide 29 Anion Gap 11 L BUN 15 Creatinine 0.79 Estim Creat Clear Calc 165.7 Estimated GFR > 60 Random Glucose 131 H Calcium 9.7 D Total Bilirubin 0.4 AST 12 ALT 17 Alkaline Phosphatase 66 Total Protein 6.3 L Albumin 3.6 Urine Osmolality 215 L Ur Random Sodium 43.0 Ur Random Potassium 16.4 Ur Random Chloride 39.0 Imaging Radiology Impressions: ITS Impressions KUB X-Ray 07/22/20 17:13 IMPRESSION: Moderate volume of stool scattered in colon. No bowel obstruction. Medications Medications Current Medications Generic Name Dose Route Start Last Admin Trade Name Freq PRN Reason Stop Dose Admin Acetaminophen 650 mg 07/23/20 21:13 10/22/20 00:22 Acetaminophen 325 Mg Tablet PO 650 mg Q6H PRN Administration Headache/Pain Mild Scale (1-3) Al Hydroxide/Mg Hydroxide 30 ml 07/23/20 21:13 Magnesium Hydrox/Alum Hydrox 30 Ml Oral.Susp PO Q6H PRN Heartburn/Nausea Atorvastatin Calcium 80 mg 07/23/20 21:00 11/17/20 22:22 Atorvastatin Calcium 80 Mg Tablet PO Not Given BEDTIME AMBROCIO Benztropine Mesylate 1 mg 10/08/20 21:00 11/18/20 09:09 Benztropine Mesylate 1 Mg Tablet PO 1 mg BID AMBROCIO Administration Clozapine 100 mg 11/17/20 08:00 11/18/20 09:09 Clozapine 100 Mg Tablet PO 100 mg DAILY AMBROCIO Administration Ferrous Sulfate 324 mg 09/02/20 09:00 11/18/20 09:09 Ferrous Sulfate 324 Mg Tablet. PO 324 mg DAILY AMBROCIO Administration Finasteride 5 mg 07/23/20 17:00 11/18/20 09:08 Finasteride 5 Mg Tablet PO 5 mg DAILY AMBROCIO Administration Hydroxyzine HCl 25 mg 07/23/20 21:13 08/17/20 03:00 Hydroxyzine Hcl 25 Mg Tablet PO 25 mg BEDTIME PRN Administration Anxiety Loperamide HCl 2 mg 07/24/20 15:43 07/24/20 15:54 Loperamide Hcl 2 Mg Capsule PO 2 mg Q4H PRN Administration Diarrhea Magnesium Hydroxide 30 ml 07/23/20 21:13 Milk Of Magnesia 30 Ml Oral.Susp PO DAILY PRN Constipation Metoprolol Succinate 50 mg 10/16/20 13:00 11/18/20 09:09 Metoprolol Succinate Er 50 Mg Tab.Er.24h PO 50 mg DAILY AMBROCIO Administration Protocol Multi-Ingred Cream/Lotion/Oil/Oint 1 appl 10/09/20 21:00 11/18/20 09:08 Mineral Oil/Petrolatum,White 106 Gm Tube TOPICAL 1 appl BID AMBROCIO Administration Multivitamins/Minerals 1 tab 09/25/20 13:30 11/18/20 09:09 Multivitamin With Minerals Tablet PO 1 tab DAILY AMBROCIO Administration Patient Own Med ( 1 each 11/15/20 15:15 Biotene) PO TID PRN xerostomia Patient Own 1 each 11/16/20 13:28 11/16/20 13:38 Medication (Thera PO 1 each Breath Dry Mouth Q4H PRN Administration Lozenge) Dry Mouth Nystatin 1 appl 07/26/20 19:25 11/18/20 09:10 Nystatin Cream 15 Gm Tube TOPICAL Not Given DAILY [facility] Protocol Olanzapine 20 mg 10/23/20 12:18 11/15/20 20:54 Olanzapine 10 Mg Vial IM 20 mg BID PRN Administration if pt ref po zydis rafy fernandez Olanzapine 20 mg 10/23/20 21:00 11/18/20 09:08 Olanzapine Odt 10 Mg Tab.Rapdis TRANSLINGU 20 mg BID AMBROCIO Administration Omeprazole 20 mg 07/24/20 06:30 11/18/20 09:09 Omeprazole 20 Mg Capsule.Dr PO 20 mg DAILY@0630 AMBROCIO Administration Trazodone HCl 50 mg 07/23/20 21:13 11/03/20 02:48 Trazodone Hcl 50 Mg Tablet PO 50 mg BEDTIME PRN Administration Insomnia Vitamin D 50 mcg 07/23/20 21:00 11/17/20 22:22 Cholecalciferol (Vitamin D3) 25 Mcg Tablet PO Not Given BEDTIME AMBROCIO Allergies Allergies Allergy/AdvReac Type Severity Reaction Status Date / Time No Known Allergies Allergy Verified 07/21/20 16:39 Assessment & Plan Assessment & Plan (1) Schizophrenia, paranoid, subchronic with acute exacerbation: Status: Chronic Code(s): F20.0 - Paranoid schizophrenia Assessment and Plan: Continue with plan below: Assessment and Plan: Continue current regime. Pt and HCP have signed a CV today. Greater than 50% of the session was spent on counseling and/or coordination of care Informed Consent: does not understand Reason for contiued inpatient stay Substantial Risk for: harm to self, inability to function and med/psych decompensation
[2020-11-18] MEDS: OLANZapine 10 MG VIAL 20 MG IM (22:30)
[2020-11-19] MEDS: Omeprazole 20 MG CAPSULE.DR PO (08:41)
[2020-11-19] MEDS: Finasteride 5 MG TABLET PO (08:41)
[2020-11-19] MEDS: cloZAPine 100 MG TABLET PO (08:41)
[2020-11-19] MEDS: OLANZapine ODT 10 MG TAB.RAPDIS 20 MG TRANSLINGU ×2 (08:41→21:18)
[2020-11-19] MEDS: Ferrous Sulfate 324 MG TABLET.DR PO (08:42)
[2020-11-19] MEDS: Mineral Oil/Petrolatum,White 106 GM Tube 1 APPL TOPICAL (08:45)
--- NOTE | 2020-11-19 15:44 | HO.PSYCHPN ---
Subjective Subjective Date of Service: 11/19/20 Reason For Visit: psychosis Subjective Notes: Conditional Voluntary Healthcare Proxy: Yes Guardianship: Yes ([facility]) Medical Problems Affecting Mental Status: No Interim History: Accepting psychiatric medications. Team discussing options for retirement care including [facility], medical psychiatric placement with [facility] in [place] and [facility] Respite. Pt slowly responding to medicine titration. Labs today. Will continue titration. Pt is visable in milieu with encouragement. He is easier to engage, does initiate some interaction when seen however appears pre-occupied and unfocused on environment. Prefers isolative activity (TV) over interactions with others. Medication Compliance: Yes (psychiatric) Side effects from medications: No Attending Groups: No Review of Systems Acute medical concerns: No Medical Review of Systems: unchanged Review of Systems Reports behavioral changes and Reports confusion Psychiatric: Reports abnormal sleep pattern, Reports behavioral changes, Reports confusion, Reports auditory hallucinations, Reports paranoia and Reports visual hallucinations Mental Status Exam Mental Status Exam Patient Appearance: Appropriate Patient Orientation: Person, Place, Time and Situation Level of Consciousness: Alert Patient Behavior: Appropriate, Guarded, Talkative, Suspicious and Good Eye Contact Mood Description: Constricted Affect Description: Constricted Patient Cognition Impaired: Yes Ability to Follow Directions: Good Speech Pattern: Spontaneous Speech Memory Description: Remote Impaired and Episodic Impaired Hallucinations: Auditory Delusions: Paranoid Ideation and Present Thought Process: Distracted, Slowed Thinking and Confusion Thought Content: positive for [place] and positive for Thought Blocking Judgement: Poor Diagnostics Vital Signs (24Hr): Body Mass Index 38.4 Labs Results: 11/10/20 07:14 11/20/20 08:21 Imaging Radiology Impressions: ITS Impressions KUB X-Ray 07/22/20 17:13 IMPRESSION: Moderate volume of stool scattered in colon. No bowel obstruction. Medications Medications Current Medications Generic Name Dose Route Start Last Admin Trade Name Freq PRN Reason Stop Dose Admin Acetaminophen 650 mg 07/23/20 21:13 10/22/20 00:22 Acetaminophen 325 Mg Tablet PO 650 mg Q6H PRN Administration Headache/Pain Mild Scale (1-3) Al Hydroxide/Mg Hydroxide 30 ml 07/23/20 21:13 Magnesium Hydrox/Alum Hydrox 30 Ml Oral.Susp PO Q6H PRN Heartburn/Nausea Atorvastatin Calcium 80 mg 07/23/20 21:00 11/18/20 22:06 Atorvastatin Calcium 80 Mg Tablet PO Not Given BEDTIME AMBROCIO Benztropine Mesylate 1 mg 10/08/20 21:00 11/19/20 08:44 Benztropine Mesylate 1 Mg Tablet PO Not Given BID AMBROCIO Clozapine 100 mg 11/17/20 08:00 11/19/20 08:41 Clozapine 100 Mg Tablet PO 100 mg DAILY AMBROCIO Administration Ferrous Sulfate 324 mg 09/02/20 09:00 11/19/20 08:42 Ferrous Sulfate 324 Mg Tablet.Dr PO 324 mg DAILY AMBROCIO Administration Finasteride 5 mg 07/23/20 17:00 11/19/20 08:41 Finasteride 5 Mg Tablet PO 5 mg DAILY AMBROCIO Administration Hydroxyzine HCl 25 mg 07/23/20 21:13 08/17/20 03:00 Hydroxyzine Hcl 25 Mg Tablet PO 25 mg BEDTIME PRN Administration Anxiety Loperamide HCl 2 mg 07/24/20 15:43 07/24/20 15:54 Loperamide Hcl 2 Mg Capsule PO 2 mg Q4H PRN Administration Diarrhea Magnesium Hydroxide 30 ml 07/23/20 21:13 Milk Of Magnesia 30 Ml Oral.Susp PO DAILY PRN Constipation Metoprolol Succinate 50 mg 10/16/20 13:00 11/19/20 08:42 Metoprolol Succinate Er 50 Mg Tab.Er.24h PO Not Given DAILY [facility] Protocol Multi-Ingred Cream/Lotion/Oil/Oint 1 appl 10/09/20 21:00 11/19/20 08:45 Mineral Oil/Petrolatum,White 106 Gm Tube TOPICAL 1 appl BID AMBROCIO Administration Multivitamins/Minerals 1 tab 09/25/20 13:30 11/19/20 08:42 Multivitamin With Minerals Tablet PO 1 tab DAILY AMBROCIO Administration Patient Own Med ( 1 each 11/15/20 15:15 Biotene) PO TID PRN xerostomia Patient Own 1 each 11/16/20 13:28 11/16/20 13:38 Medication (Thera PO 1 each Breath Dry Mouth Q4H PRN Administration Lozenge) Dry Mouth Nystatin 1 appl 07/26/20 19:25 11/19/20 08:56 Nystatin Cream 15 Gm Tube TOPICAL Not Given DAILY [facility] Protocol Olanzapine 20 mg 10/23/20 12:18 11/18/20 22:30 Olanzapine 10 Mg Vial IM 20 mg BID PRN Administration if pt ref po zydis per jim Olanzapine 20 mg 10/23/20 21:00 11/19/20 08:41 Olanzapine Odt 10 Mg Tab.Sundeep TRANSLINGU 20 mg BID AMBROCIO Administration Omeprazole 20 mg 07/24/20 06:30 11/19/20 08:41 Omeprazole 20 Mg Capsule. PO 20 mg DAILY@0630 AMBROCIO Administration Trazodone HCl 50 mg 07/23/20 21:13 11/03/20 02:48 Trazodone Hcl 50 Mg Tablet PO 50 mg BEDTIME PRN Administration Insomnia Vitamin D 50 mcg 07/23/20 21:00 11/18/20 22:06 Cholecalciferol (Vitamin D3) 25 Mcg Tablet PO Not Given BEDTIME AMBROCIO Allergies Allergies Allergy/AdvReac Type Severity Reaction Status Date / Time No Known Allergies Allergy Verified 07/21/20 16:39 Assessment & Plan Assessment & Plan (1) Schizophrenia, paranoid, subchronic with acute exacerbation: Status: Chronic Code(s): F20.0 - Paranoid schizophrenia Assessment and Plan: -Continue current regime. -Diagnostics pending. Greater than 50% of the session was spent on counseling and/or coordination of care Informed Consent: does not understand Reason for contiued inpatient stay Substantial Risk for: harm to self, harm to others, inability to function, rapid decompensation and med/psych decompensation
[2020-11-20 08:55] LABS: Estimated Average Glucose 128 mg/dL; Hemoglobin A1c % 6.1 %
[2020-11-20] MEDS: Finasteride 5 MG TABLET PO (09:05)
[2020-11-20] MEDS: OLANZapine ODT 10 MG TAB.RAPDIS 20 MG TRANSLINGU ×2 (09:05→20:59)
[2020-11-20] MEDS: Ferrous Sulfate 324 MG TABLET.DR PO (09:05)
[2020-11-20] MEDS: Omeprazole 20 MG CAPSULE.DR PO (09:05)
[2020-11-20] MEDS: Benztropine Mesylate 1 MG TABLET PO (09:05)
[2020-11-20] MEDS: cloZAPine 100 MG TABLET PO (09:06)
[2020-11-20 09:11] LABS: Alanine Aminotransferase 14 U/L (0-40); Albumin Level 3.6 g/dL (3.5-5.0); Alkaline Phosphatase 67 U/L (39-117); Anion Gap 9 (12-20); Aspartate Amino Transferase 12 U/L (5-37); Bilirubin Total 0.6 mg/dL (0.0-1.0); Blood Urea Nitrogen 18 mg/dL (9-16); Calcium 9.2 mg/dL (8.4-10.2); Carbon Dioxide 30 mmol/L (22-29); Chloride 103 mmol/L (96-108); Cholesterol 203 mg/dL; Creatinine Clr Calc Pharmacy 163.6; Estimated Glomerular Filt Rate > 60; Glucose Random 121 mg/dL (60-115); HDL Cholesterol 39 mg/dL; LDL Cholesterol Calculated 142 mg/dl; Potassium 4.3 mmol/L (3.3-5.1); Sodium 138 mmol/L (135-145); Total Protein 6.4 g/dL (6.5-8.0); Triglycerides 112 mg/dL
[2020-11-20 09:30] LABS: Thyroid Stimulating Hormone 2.35 uIU/mL (0.32-4.0)
[2020-11-20 10:41] LABS: Folate 13.6 ng/mL (> or = 4.0); Vitamin B12 245 pg/mL (200-900)
--- NOTE | 2020-11-20 16:15 | HO.PSYCHPN ---
Subjective Subjective Date of Service: 11/20/20 Reason For Visit: psychosis Subjective Notes: Conditional Voluntary Healthcare Proxy: Yes Guardianship: Yes Medical Problems Affecting Mental Status: No Interim History: Review of care with [facility] ([facility]) [phone]. Pt they report is not appropriate for their program as he requires a bed larger than a twin. They will follow up with our team and [facility]. Juan reports he is OK . He is out in the milieu for brief periods, interactive briefly with team an peers, appearing softer, less preoccupied today. Tolerating increase in Clozaril. Medication Compliance: Yes Side effects from medications: No Attending Groups: No Review of Systems Acute medical concerns: No Medical Review of Systems: unchanged Review of Systems Reports behavioral changes and Reports confusion Psychiatric: Reports abnormal sleep pattern, Reports behavioral changes, Reports confusion, Reports auditory hallucinations, Reports paranoia and Reports visual hallucinations Mental Status Exam Mental Status Exam Patient Appearance: Appropriate Patient Orientation: Person, Place, Time and Situation Level of Consciousness: Alert Patient Behavior: Appropriate, Guarded, Talkative, Suspicious and Good Eye Contact Mood Description: Constricted Affect Description: Constricted Patient Cognition Impaired: Yes Ability to Follow Directions: Good Speech Pattern: Spontaneous Speech Memory Description: Remote Impaired and Episodic Impaired Hallucinations: Auditory Delusions: Paranoid Ideation and Present Thought Process: Distracted, Slowed Thinking and Confusion Thought Content: positive for [place] and positive for Thought Blocking Judgement: Poor Diagnostics Vital Signs (24Hr): Body Mass Index 38.4 Labs Results: 11/10/20 07:14 11/20/20 08:21 Labs: Laboratory Results - last 48 hr 11/20/20 11/20/20 11/20/20 08:21 08:21 08:21 Sodium 138 Potassium 4.3 Chloride 103 Carbon Dioxide 30 H Anion Gap 9 L BUN 18 H Creatinine 0.80 Estim Creat Clear Calc 163.6 Estimated GFR > 60 Random Glucose 121 H Estimat Average Glucose 128 Hemoglobin A1c % 6.1 Calcium 9.2 Total Bilirubin 0.6 AST 12 ALT 14 Alkaline Phosphatase 67 Total Protein 6.4 L Albumin 3.6 Triglycerides 112 Cholesterol 203 D LDL Cholesterol, Calc 142 HDL Cholesterol 39 D Vitamin B12 245 Folate 13.6 TSH 2.35 Imaging Radiology Impressions: ITS Impressions KUB X-Ray 07/22/20 17:13 IMPRESSION: Moderate volume of stool scattered in colon. No bowel obstruction. Medications Medications Current Medications Generic Name Dose Route Start Last Admin Trade Name Freq PRN Reason Stop Dose Admin Acetaminophen 650 mg 07/23/20 21:13 10/22/20 00:22 Acetaminophen 325 Mg Tablet PO 650 mg Q6H PRN Administration Headache/Pain Mild Scale (1-3) Al Hydroxide/Mg Hydroxide 30 ml 07/23/20 21:13 Magnesium Hydrox/Alum Hydrox 30 Ml Oral.Susp PO Q6H PRN Heartburn/Nausea Atorvastatin Calcium 80 mg 07/23/20 21:00 11/19/20 21:56 Atorvastatin Calcium 80 Mg Tablet PO Not Given BEDTIME AMBROCIO Benztropine Mesylate 1 mg 10/08/20 21:00 11/20/20 09:05 Benztropine Mesylate 1 Mg Tablet PO 1 mg BID AMBROCIO Administration Clozapine 100 mg 11/17/20 08:00 11/20/20 09:06 Clozapine 100 Mg Tablet PO 100 mg DAILY AMBROCIO Administration Ferrous Sulfate 324 mg 09/02/20 09:00 11/20/20 09:05 Ferrous Sulfate 324 Mg Tablet. PO 324 mg DAILY AMBROCIO Administration Finasteride 5 mg 07/23/20 17:00 11/20/20 09:05 Finasteride 5 Mg Tablet PO 5 mg DAILY AMBROCIO Administration Hydroxyzine HCl 25 mg 07/23/20 21:13 08/17/20 03:00 Hydroxyzine Hcl 25 Mg Tablet PO 25 mg BEDTIME PRN Administration Anxiety Loperamide HCl 2 mg 07/24/20 15:43 07/24/20 15:54 Loperamide Hcl 2 Mg Capsule PO 2 mg Q4H PRN Administration Diarrhea Magnesium Hydroxide 30 ml 07/23/20 21:13 Milk Of Magnesia 30 Ml Oral.Susp PO DAILY PRN Constipation Metoprolol Succinate 50 mg 10/16/20 13:00 11/20/20 09:45 Metoprolol Succinate Er 50 Mg Tab.Er.24h PO Not Given DAILY [facility] Protocol Multi-Ingred Cream/Lotion/Oil/Oint 1 appl 10/09/20 21:00 11/20/20 09:46 Mineral Oil/Petrolatum,White 106 Gm Tube TOPICAL Not Given BID [facility] Multivitamins/Minerals 1 tab 09/25/20 13:30 11/20/20 09:05 Multivitamin With Minerals Tablet PO 1 tab DAILY AMBROCIO Administration Patient Own Med ( 1 each 11/15/20 15:15 Biotene) PO TID PRN xerostomia Patient Own 1 each 11/16/20 13:28 11/16/20 13:38 Medication (Thera PO 1 each Breath Dry Mouth Q4H PRN Administration Lozenge) Dry Mouth Nystatin 1 appl 07/26/20 19:25 11/20/20 09:46 Nystatin Cream 15 Gm Tube TOPICAL Not Given DAILY [facility] Protocol Olanzapine 20 mg 10/23/20 12:18 11/18/20 22:30 Olanzapine 10 Mg Vial IM 20 mg BID PRN Administration if pt ref po zydis rafy fernandez Olanzapine 20 mg 10/23/20 21:00 11/20/20 09:05 Olanzapine Odt 10 Mg Tab.Rapdis TRANSLINGU 20 mg BID AMBROCIO Administration Omeprazole 20 mg 07/24/20 06:30 11/20/20 09:05 Omeprazole 20 Mg Capsule.Dr PO 20 mg DAILY@0630 AMBROCIO Administration Trazodone HCl 50 mg 07/23/20 21:13 11/03/20 02:48 Trazodone Hcl 50 Mg Tablet PO 50 mg BEDTIME PRN Administration Insomnia Vitamin D 50 mcg 07/23/20 21:00 11/19/20 21:55 Cholecalciferol (Vitamin D3) 25 Mcg Tablet PO Not Given BEDTIME AMBROCIO Allergies Allergies Allergy/AdvReac Type Severity Reaction Status Date / Time No Known Allergies Allergy Verified 07/21/20 16:39 Assessment & Plan Assessment & Plan (1) Schizophrenia, paranoid, subchronic with acute exacerbation: Status: Chronic Code(s): F20.0 - Paranoid schizophrenia Assessment and Plan: -Continue current regime Greater than 50% of the session was spent on counseling and/or coordination of care Informed Consent: does not understand Reason for contiued inpatient stay Substantial Risk for: harm to self, harm to others, inability to function, rapid decompensation and med/psych decompensation
[2020-11-21] MEDS: Ferrous Sulfate 324 MG TABLET.DR PO (08:38)
[2020-11-21] MEDS: OLANZapine ODT 10 MG TAB.RAPDIS 20 MG TRANSLINGU ×2 (08:39→19:59)
--- NOTE | 2020-11-21 09:06 | HO.PSYCHPN ---
Subjective Subjective Date of Service: 11/21/20 Reason For Visit: psychosis Subjective Notes: Conditional Voluntary Healthcare Proxy: Yes Guardianship: Yes Medical Problems Affecting Mental Status: No Interim History: Not very talkative today. Appears angry, preoccupied. 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 Denies pain, denies feeling poorly. Medication Compliance: Intermittent Side effects from medications: No Attending Groups: No Review of Systems Acute medical concerns: No Medical Review of Systems: unchanged Review of Systems Reports behavioral changes and Reports confusion Psychiatric: Reports abnormal sleep pattern, Reports behavioral changes, Reports confusion, Reports auditory hallucinations, Reports paranoia and Reports visual hallucinations Mental Status Exam Mental Status Exam Patient Appearance: Appropriate Patient Orientation: Person, Place, Time and Situation Level of Consciousness: Alert Patient Behavior: Appropriate, Guarded, Talkative, Suspicious and Good Eye Contact Mood Description: Constricted Affect Description: Constricted Patient Cognition Impaired: Yes Ability to Follow Directions: Good Speech Pattern: Spontaneous Speech Memory Description: Remote Impaired and Episodic Impaired Hallucinations: Auditory Delusions: Paranoid Ideation and Present Thought Process: Distracted, Slowed Thinking and Confusion Thought Content: positive for [place] and positive for Thought Blocking Judgement: Poor Diagnostics Vital Signs (24Hr): Body Mass Index 38.4 Labs Results: 11/10/20 07:14 11/20/20 08:21 Labs: Laboratory Results - last 48 hr 11/20/20 11/20/20 11/20/20 08:21 08:21 08:21 Sodium 138 Potassium 4.3 Chloride 103 Carbon Dioxide 30 H Anion Gap 9 L BUN 18 H Creatinine 0.80 Estim Creat Clear Calc 163.6 Estimated GFR > 60 Random Glucose 121 H Estimat Average Glucose 128 Hemoglobin A1c % 6.1 Calcium 9.2 Total Bilirubin 0.6 AST 12 ALT 14 Alkaline Phosphatase 67 Total Protein 6.4 L Albumin 3.6 Triglycerides 112 Cholesterol 203 D LDL Cholesterol, Calc 142 HDL Cholesterol 39 D Vitamin B12 245 Folate 13.6 TSH 2.35 Imaging Radiology Impressions: ITS Impressions [facility] X-Ray 07/22/20 17:13 IMPRESSION: Moderate volume of stool scattered in colon. No bowel obstruction. Medications Medications Current Medications Generic Name Dose Route Start Last Admin Trade Name Freq PRN Reason Stop Dose Admin Acetaminophen 650 mg 07/23/20 21:13 10/22/20 00:22 Acetaminophen 325 Mg Tablet PO 650 mg Q6H PRN Administration Headache/Pain Mild Scale (1-3) Al Hydroxide/Mg Hydroxide 30 ml 07/23/20 21:13 Magnesium Hydrox/Alum Hydrox 30 Ml Oral.Susp PO Q6H PRN Heartburn/Nausea Atorvastatin Calcium 80 mg 07/23/20 21:00 11/20/20 22:19 Atorvastatin Calcium 80 Mg Tablet PO Not Given BEDTIME [facility] Benztropine Mesylate 1 mg 10/08/20 21:00 11/21/20 08:48 Benztropine Mesylate 1 Mg Tablet PO Not Given BID [facility] Clozapine 100 mg 11/17/20 08:00 11/21/20 09:05 Clozapine 100 Mg Tablet PO Not Given DAILY COUNT INCLUDES [facility] Ferrous Sulfate 324 mg 09/02/20 09:00 11/21/20 08:38 Ferrous Sulfate 324 Mg Tablet. PO 324 mg DAILY COUNT INCLUDES [facility] Administration Finasteride 5 mg 07/23/20 17:00 11/21/20 08:48 Finasteride 5 Mg Tablet PO Not Given DAILY COUNT INCLUDES [facility] Hydroxyzine HCl 25 mg 07/23/20 21:13 08/17/20 03:00 Hydroxyzine Hcl 25 Mg Tablet PO 25 mg BEDTIME PRN Administration Anxiety Loperamide HCl 2 mg 07/24/20 15:43 07/24/20 15:54 Loperamide Hcl 2 Mg Capsule PO 2 mg Q4H PRN Administration Diarrhea Magnesium Hydroxide 30 ml 07/23/20 21:13 Milk Of Magnesia 30 Ml Oral.Susp PO DAILY PRN Constipation Metoprolol Succinate 50 mg 10/16/20 13:00 11/21/20 08:50 Metoprolol Succinate Er 50 Mg Tab.Er.24h PO Not Given DAILY [facility]CLUD[facility] Protocol Multi-Ingred Cream/Lotion/Oil/Oint 1 appl 10/09/20 21:00 11/21/20 08:50 Mineral Oil/Petrolatum,White 106 Gm Tube TOPICAL Not Given BID [facility]CLUD[facility] Multivitamins/Minerals 1 tab 09/25/20 13:30 11/21/20 08:50 Multivitamin With Minerals Tablet PO Not Given DAILY COUNT [facility]CLUDES [facility] Patient Own Med ( 1 each 11/15/20 15:15 Biotene) PO TID PRN xerostomia Patient Own 1 each 11/16/20 13:28 11/16/20 13:38 Medication (Thera PO 1 each Breath Dry Mouth Q4H PRN Administration Lozenge) Dry Mouth Nystatin 1 appl 07/26/20 19:25 11/21/20 08:51 Nystatin Cream 15 Gm Tube TOPICAL Not Given DAILY [facility] Protocol Olanzapine 20 mg 10/23/20 12:18 11/18/20 22:30 Olanzapine 10 Mg Vial IM 20 mg BID PRN Administration if pt ref po zydis rafy fernandez Olanzapine 20 mg 10/23/20 21:00 11/21/20 08:39 Olanzapine Odt 10 Mg Tab.Rapdis TRANSLINGU 20 mg BID [facility] Administration Omeprazole 20 mg 07/24/20 06:30 11/21/20 08:46 Omeprazole 20 Mg Capsule.Dr PO Not Given DAILY@0630 [facility] Trazodone HCl 50 mg 07/23/20 21:13 11/03/20 02:48 Trazodone Hcl 50 Mg Tablet PO 50 mg BEDTIME PRN Administration Insomnia Vitamin D 50 mcg 07/23/20 21:00 11/20/20 22:19 Cholecalciferol (Vitamin D3) 25 Mcg Tablet PO Not Given BEDTIME [facility] Allergies Allergies Allergy/AdvReac Type Severity Reaction Status Date / Time No Known Allergies Allergy Verified 07/21/20 16:39 Assessment & Plan Assessment & Plan (1) Schizophrenia, paranoid, subchronic with acute exacerbation: Status: Chronic Code(s): F20.0 - Paranoid schizophrenia Assessment and Plan: -Continue current regime Greater than 50% of the session was spent on counseling and/or coordination of care Informed Consent: does not understand Reason for contiued inpatient stay Substantial Risk for: harm to self, harm to others, inability to function, rapid decompensation and med/psych decompensation
[2020-11-21] MEDS: cloZAPine 100 MG TABLET PO (11:13)
[2020-11-22] MEDS: cloZAPine 100 MG TABLET PO (08:20)
[2020-11-22] MEDS: Ferrous Sulfate 324 MG TABLET.DR PO (08:20)
[2020-11-22] MEDS: OLANZapine ODT 10 MG TAB.RAPDIS 20 MG TRANSLINGU (08:20)
--- NOTE | 2020-11-22 09:48 | HO.PSYCHPN ---
Subjective Subjective Date of Service: 11/22/20 Reason For Visit: psychosis Interim History: pt seen on 11/22 pt sitting in chair; he is friendly and calm. He says he's in a good mood. Pt shared that he was hesitent to take clozapine this morning since voices were telling him not to, however he said he decided to anyway (with extensive nurse encouragement). Patient shared about playing football in HS and discussed other sports with underwriter solicitation director in a thoughtful, appropriate way. Pt looking forward to seeing brother today. No complaints, no requests. Mental Status Exam Mental Status Exam Narrative: Patient Appearance:?Appropriate Patient Orientation:?Person, Place, Time and Situation Level of Consciousness:?Alert Patient Behavior:?Appropriate, friendly, calm; Good Eye Contact Mood Description:?'good Affect Description:?somewhat Constricted Patient Cognition Impaired:?Yes Ability to Follow Directions:?Good Speech Pattern:?Spontaneous Speech, Memory Description:?Remote Impaired and Episodic Impaired Hallucinations:?Auditory Delusions:?Paranoid Ideation Thought Process:?linear, goal oriented, though Distracted and sometimes latent Thought Content:?no SI, HI; brothers visit Judgement:?Poor Diagnostics Vital Signs (24Hr): Body Mass Index 38.4 Labs Results: 11/10/20 07:14 11/20/20 08:21 Labs: Laboratory Results - last 48 hr 11/20/20 08:21 Vitamin B12 245 Folate 13.6 Imaging Radiology Impressions: ITS Impressions [facility] X-Ray 07/22/20 17:13 IMPRESSION: Moderate volume of stool scattered in colon. No bowel obstruction. Medications Medications Current Medications Acetaminophen (Acetaminophen 325 Mg Tablet) 650 mg PO Q6H PRN PRN Reason: Headache/Pain Mild Scale (1-3) Last Admin: 10/22/20 00:22 Dose: 650 mg Documented by: Al Hydroxide/Mg Hydroxide (Magnesium Hydrox/Alum Hydrox 30 Ml Oral.Susp) 30 ml PO Q6H PRN PRN Reason: Heartburn/Nausea Atorvastatin Calcium (Atorvastatin Calcium 80 Mg Tablet) 80 mg PO BEDTIME [facility] Last Admin: 11/21/20 19:59 Dose: Not Given Documented by: Benztropine Mesylate (Benztropine Mesylate 1 Mg Tablet) 1 mg PO BID [facility] Last Admin: 11/22/20 08:23 Dose: Not Given Documented by: Clozapine (Clozapine 100 Mg Tablet) 100 mg PO DAILY [facility] Last Admin: 11/22/20 08:20 Dose: 100 mg Documented by: Ferrous Sulfate (Ferrous Sulfate 324 Mg Tablet.) 324 mg PO DAILY [facility] Last Admin: 11/22/20 08:20 Dose: 324 mg Documented by: Finasteride (Finasteride 5 Mg Tablet) 5 mg PO DAILY [facility] Last Admin: 11/22/20 08:23 Dose: Not Given Documented by: Hydroxyzine HCl (Hydroxyzine Hcl 25 Mg Tablet) 25 mg PO BEDTIME PRN PRN Reason: Anxiety Last Admin: 08/17/20 03:00 Dose: 25 mg Documented by: Loperamide HCl (Loperamide Hcl 2 Mg Capsule) 2 mg PO Q4H PRN PRN Reason: Diarrhea Last Admin: 07/24/20 15:54 Dose: 2 mg Documented by: Magnesium Hydroxide (Milk Of Magnesia 30 Ml Oral.Susp) 30 ml PO DAILY PRN PRN Reason: Constipation Metoprolol Succinate (Metoprolol Succinate Er 50 Mg Tab.Er.24h) 50 mg PO DAILY [facility]; Protocol Last Admin: 11/22/20 08:24 Dose: Not Given Documented by: Multi-Ingred Cream/Lotion/Oil/Oint (Mineral Oil/Petrolatum,White 106 Gm Tube) 1 appl TOPICAL BID [facility] Last Admin: 11/22/20 08:24 Dose: Not Given Documented by: Multivitamins/Minerals (Multivitamin With Minerals Tablet) 1 tab PO DAILY [facility] Last Admin: 11/22/20 08:24 Dose: Not Given Documented by: Patient Own Med ( (Biotene)) 1 each PO TID PRN PRN Reason: xerostomia Patient Own Medication (Thera Breath Dry Mouth Lozenge) 1 each PO Q4H PRN PRN Reason: Dry Mouth Last Admin: 11/16/20 13:38 Dose: 1 each Documented by: Nystatin (Nystatin Cream 15 Gm Tube) 1 appl TOPICAL DAILY [facility]; Protocol Last Admin: 11/22/20 08:24 Dose: Not Given Documented by: Olanzapine (Olanzapine 10 Mg Vial) 20 mg IM BID PRN PRN Reason: if pt ref po zydis per jim Last Admin: 11/18/20 22:30 Dose: 20 mg Documented by: Olanzapine (Olanzapine Odt 10 Mg Tab.Rapdis) 20 mg TRANSLINGU BID [facility] Last Admin: 11/22/20 08:20 Dose: 20 mg Documented by: Omeprazole (Omeprazole 20 Mg Capsule.Dr) 20 mg PO DAILY@0630 [facility] Last Admin: 11/22/20 08:23 Dose: Not Given Documented by: Trazodone HCl (Trazodone Hcl 50 Mg Tablet) 50 mg PO BEDTIME PRN PRN Reason: Insomnia Last Admin: 11/03/20 02:48 Dose: 50 mg Documented by: Vitamin D (Cholecalciferol (Vitamin D3) 25 Mcg Tablet) 50 mcg PO BEDTIME [facility] Last Admin: 11/21/20 19:59 Dose: Not Given Documented by: Allergies Allergies Allergy/AdvReac Type Severity Reaction Status Date / Time No Known Allergies Allergy Verified 07/21/20 16:39 Assessment & Plan Assessment & Plan (1) Schizophrenia, paranoid, subchronic with acute exacerbation: Status: Chronic Code(s): F20.0 - Paranoid schizophrenia Assessment and Plan: 11/22 underwriter solicitation director covering no changes to tx plan -Continue current regime Greater than 50% of the session was spent on counseling and/or coordination of care Reason for contiued inpatient stay Substantial Risk for: inability to function and rapid decompensation
[2020-11-22 14:52] LABS: Glucose, Whole Blood 202 mg/dL (60-115)
[2020-11-22] MEDS: Mineral Oil/Petrolatum,White 106 GM Tube 1 APPL TOPICAL (21:20)
[2020-11-22] MEDS: OLANZapine 10 MG VIAL 20 MG IM (21:21)
[2020-11-23] MEDS: cloZAPine 100 MG TABLET PO (08:49)
[2020-11-23] MEDS: OLANZapine ODT 10 MG TAB.RAPDIS 20 MG TRANSLINGU ×2 (08:49→22:09)
[2020-11-23] MEDS: Ferrous Sulfate 324 MG TABLET.DR PO (08:49)
--- NOTE | 2020-11-23 23:45 | P.PNPSI_ITS ---
Subjective Subjective Date of Service: 11/23/20 Reason For Visit: psychosis Interim History: pt report he's good. reports same issue with voices (needed much nursing encouragement). public relations writer asked about increasing but pt did not want to. Otherwise no changes in presentation Mental Status Exam Mental Status Exam Narrative: Patient Appearance:?Appropriate Patient Orientation:?Person, Place, Time and Situation Level of Consciousness:?Alert Patient Behavior:?Appropriate, friendly, calm; Good Eye Contact Mood Description:?'good Affect Description:?somewhat Constricted Patient Cognition Impaired:?Yes Ability to Follow Directions:?Good Speech Pattern:?Spontaneous Speech,? Memory Description:?Remote Impaired and Episodic Impaired Hallucinations:?Auditory Delusions:?Paranoid Ideation? Thought Process:?linear, goal oriented, though Distracted and sometimes latent Thought Content:?no SI, HI; brothers visit Judgement:?Poor Diagnostics Vital Signs (24Hr): Body Mass Index 38.4 Labs Results: 11/10/20 07:14 11/20/20 08:21 Labs: Laboratory Results - last 48 hr 11/22/20 14:27 POC Glucose 202 H Imaging Radiology Impressions: ITS Impressions [facility] X-Ray 07/22/20 17:13 IMPRESSION: Moderate volume of stool scattered in colon. No bowel obstruction. Medications Medications Current Medications Acetaminophen (Acetaminophen 325 Mg Tablet) 650 mg PO Q6H PRN PRN Reason: Headache/Pain Mild Scale (1-3) Last Admin: 10/22/20 00:22 Dose: 650 mg Documented by: Al Hydroxide/Mg Hydroxide (Magnesium Hydrox/Alum Hydrox 30 Ml Oral.Susp) 30 ml PO Q6H PRN PRN Reason: Heartburn/Nausea Atorvastatin Calcium (Atorvastatin Calcium 80 Mg Tablet) 80 mg PO BEDTIME [facility] Last Admin: 11/23/20 22:12 Dose: Not Given Documented by: Benztropine Mesylate (Benztropine Mesylate 1 Mg Tablet) 1 mg PO BID [facility] Last Admin: 11/23/20 22:12 Dose: Not Given Documented by: Clozapine (Clozapine 100 Mg Tablet) 100 mg PO DAILY [facility] Last Admin: 11/23/20 08:49 Dose: 100 mg Documented by: Ferrous Sulfate (Ferrous Sulfate 324 Mg Tablet.) 324 mg PO DAILY [facility] Last Admin: 11/23/20 08:49 Dose: 324 mg Documented by: Finasteride (Finasteride 5 Mg Tablet) 5 mg PO DAILY [facility] Last Admin: 11/23/20 09:04 Dose: Not Given Documented by: Hydroxyzine HCl (Hydroxyzine Hcl 25 Mg Tablet) 25 mg PO BEDTIME PRN PRN Reason: Anxiety Last Admin: 08/17/20 03:00 Dose: 25 mg Documented by: Loperamide HCl (Loperamide Hcl 2 Mg Capsule) 2 mg PO Q4H PRN PRN Reason: Diarrhea Last Admin: 07/24/20 15:54 Dose: 2 mg Documented by: Magnesium Hydroxide (Milk Of Magnesia 30 Ml Oral.Susp) 30 ml PO DAILY PRN PRN Reason: Constipation Metoprolol Succinate (Metoprolol Succinate Er 50 Mg Tab.Er.24h) 50 mg PO DAILY [facility]; Protocol Last Admin: 11/23/20 09:04 Dose: Not Given Documented by: Multi-Ingred Cream/Lotion/Oil/Oint (Mineral Oil/Petrolatum,White 106 Gm Tube) 1 appl TOPICAL BID [facility] Last Admin: 11/23/20 22:12 Dose: Not Given Documented by: Multivitamins/Minerals (Multivitamin With Minerals Tablet) 1 tab PO DAILY [facility] Last Admin: 11/23/20 09:05 Dose: Not Given Documented by: Patient Own Med ( (Biotene)) 1 each PO TID PRN PRN Reason: xerostomia Patient Own Medication (Thera Breath Dry Mouth Lozenge) 1 each PO Q4H PRN PRN Reason: Dry Mouth Last Admin: 11/16/20 13:38 Dose: 1 each Documented by: Nystatin (Nystatin Cream 15 Gm Tube) 1 appl TOPICAL DAILY [facility]; Protocol Last Admin: 11/23/20 09:05 Dose: Not Given Documented by: Olanzapine (Olanzapine 10 Mg Vial) 20 mg IM BID PRN PRN Reason: if pt ref po zydis per jim Last Admin: 11/22/20 21:21 Dose: 20 mg Documented by: Olanzapine (Olanzapine Odt 10 Mg Tab.Rapdis) 20 mg TRANSLINGU BID [facility] Last Admin: 11/23/20 22:09 Dose: 20 mg Documented by: Omeprazole (Omeprazole 20 Mg Capsule.Dr) 20 mg PO DAILY@0630 [facility] Last Admin: 11/23/20 09:02 Dose: Not Given Documented by: Trazodone HCl (Trazodone Hcl 50 Mg Tablet) 50 mg PO BEDTIME PRN PRN Reason: Insomnia Last Admin: 11/03/20 02:48 Dose: 50 mg Documented by: Vitamin D (Cholecalciferol (Vitamin D3) 25 Mcg Tablet) 50 mcg PO BEDTIME [facility] Last Admin: 11/23/20 22:12 Dose: Not Given Documented by: Allergies Allergies Allergy/AdvReac Type Severity Reaction Status Date / Time No Known Allergies Allergy Verified 07/21/20 16:39 Assessment & Plan Assessment & Plan (1) Schizophrenia, paranoid, subchronic with acute exacerbation: Status: Chronic Code(s): F20.0 - Paranoid schizophrenia Assessment and Plan: 11/23 public relations writer covering no changes to tx plan -Continue current regime Greater than 50% of the session was spent on counseling and/or coordination of care Reason for contiued inpatient stay Substantial Risk for: rapid decompensation
[2020-11-24] MEDS: Omeprazole 20 MG CAPSULE.DR PO (08:28)
[2020-11-24] MEDS: Ferrous Sulfate 324 MG TABLET.DR PO (08:28)
[2020-11-24] MEDS: cloZAPine 100 MG TABLET PO (08:28)
[2020-11-24] MEDS: Benztropine Mesylate 1 MG TABLET PO (08:28)
[2020-11-24] MEDS: Finasteride 5 MG TABLET PO (08:28)
[2020-11-24] MEDS: OLANZapine ODT 10 MG TAB.RAPDIS 20 MG TRANSLINGU ×2 (08:28→20:33)
[2020-11-24 08:35] LABS: Neut%MD 68.5 %; Neutrophils Absolute Auto 6.6 X10*3/uL (2.0-8.3); WBCANC 9.7 X10*3/uL
[2020-11-24] MEDS: Mineral Oil/Petrolatum,White 106 GM Tube 1 APPL TOPICAL (10:59)
--- NOTE | 2020-11-24 18:18 | P.PNPSI_ITS ---
Subjective Subjective Date of Service: 11/24/20 Reason For Visit: psychosis Subjective Notes: Conditional Voluntary Healthcare Proxy: Yes Guardianship: Yes Medical Problems Affecting Mental Status: No Interim History: Juan today appears relaxed positive. He initiates interaction and reports he is doing well. Team reports he struggled with medication compliance over the weekend as he was irritable and negative. Team and family believe this may be due to upcoming transfer to [facility] med/psych program in [place]. Medication Compliance: Yes Side effects from medications: No Attending Groups: No Review of Systems Acute medical concerns: No Medical Review of Systems: unchanged Review of Systems Reports behavioral changes Psychiatric: Reports behavioral changes, Reports difficulty concentrating, Reports auditory hallucinations and Reports paranoia Mental Status Exam Mental Status Exam Patient Appearance: Appropriate Patient Orientation: Person, Place, Time and Situation Level of Consciousness: Alert Patient Behavior: Appropriate, Talkative, Cooperative and Good Eye Contact Mood Description: Calm Affect Description: Constricted Patient Cognition Impaired: Yes Ability to Follow Directions: Good Speech Pattern: Spontaneous Speech Memory Description: Remote Impaired and Episodic Impaired Hallucinations: Auditory Delusions: Present Perceptual Disturbances: Depersonalization Thought Process: Distracted Thought Content: positive for Thought Blocking Judgement: Poor Diagnostics Vital Signs (24Hr): Body Mass Index 38.4 Labs Results: 11/10/20 07:14 11/20/20 08:21 Labs: Laboratory Results - last 48 hr 11/24/20 08:22 Absolute Neuts (auto) 6.6 Imaging Radiology Impressions: ITS Impressions [facility] X-Ray 07/22/20 17:13 IMPRESSION: Moderate volume of stool scattered in colon. No bowel obstruction. Medications Medications Current Medications Acetaminophen (Acetaminophen 325 Mg Tablet) 650 mg PO Q6H PRN PRN Reason: Headache/Pain Mild Scale (1-3) Last Admin: 10/22/20 00:22 Dose: 650 mg Documented by: Al Hydroxide/Mg Hydroxide (Magnesium Hydrox/Alum Hydrox 30 Ml Oral.Susp) 30 ml PO Q6H PRN PRN Reason: Heartburn/Nausea Atorvastatin Calcium (Atorvastatin Calcium 80 Mg Tablet) 80 mg PO BEDTIME [facility] Last Admin: 11/23/20 22:12 Dose: Not Given Documented by: Benztropine Mesylate (Benztropine Mesylate 1 Mg Tablet) 1 mg PO BID [facility] Last Admin: 11/24/20 08:28 Dose: 1 mg Documented by: Clozapine 100 mg/ Clozapine 25 (mg) 125 mg PO DAILY [facility] Ferrous Sulfate (Ferrous Sulfate 324 Mg Tablet.Dr) 324 mg PO DAILY [facility] Last Admin: 11/24/20 08:28 Dose: 324 mg Documented by: Finasteride (Finasteride 5 Mg Tablet) 5 mg PO DAILY [facility] Last Admin: 11/24/20 08:28 Dose: 5 mg Documented by: Hydroxyzine HCl (Hydroxyzine Hcl 25 Mg Tablet) 25 mg PO BEDTIME PRN PRN Reason: Anxiety Last Admin: 08/17/20 03:00 Dose: 25 mg Documented by: Loperamide HCl (Loperamide Hcl 2 Mg Capsule) 2 mg PO Q4H PRN PRN Reason: Diarrhea Last Admin: 07/24/20 15:54 Dose: 2 mg Documented by: Magnesium Hydroxide (Milk Of Magnesia 30 Ml Oral.Susp) 30 ml PO DAILY PRN PRN Reason: Constipation Metoprolol Succinate (Metoprolol Succinate Er 50 Mg Tab.Er.24h) 50 mg PO DAILY [facility]; Protocol Last Admin: 11/24/20 08:57 Dose: Not Given Documented by: Multi-Ingred Cream/Lotion/Oil/Oint (Mineral Oil/Petrolatum,White 106 Gm Tube) 1 appl TOPICAL BID [facility] Last Admin: 11/24/20 10:59 Dose: 1 appl Documented by: Multivitamins/Minerals (Multivitamin With Minerals Tablet) 1 tab PO DAILY [facility] Last Admin: 11/24/20 08:28 Dose: 1 tab Documented by: Patient Own Med ( (Biotene)) 1 each PO TID PRN PRN Reason: xerostomia Patient Own Medication (Thera Breath Dry Mouth Lozenge) 1 each PO Q4H PRN PRN Reason: Dry Mouth Last Admin: 11/16/20 13:38 Dose: 1 each Documented by: Nystatin (Nystatin Cream 15 Gm Tube) 1 appl TOPICAL DAILY [facility]; Protocol Last Admin: 11/24/20 08:57 Dose: Not Given Documented by: Olanzapine (Olanzapine 10 Mg Vial) 20 mg IM BID PRN PRN Reason: if pt ref po zydis per jim Last Admin: 11/22/20 21:21 Dose: 20 mg Documented by: Olanzapine (Olanzapine Odt 10 Mg Tab.Rapdis) 20 mg TRANSLINGU BID [facility] Last Admin: 11/24/20 08:28 Dose: 20 mg Documented by: Omeprazole (Omeprazole 20 Mg Capsule.Dr) 20 mg PO DAILY@0630 [facility] Last Admin: 11/24/20 08:28 Dose: 20 mg Documented by: Trazodone HCl (Trazodone Hcl 50 Mg Tablet) 50 mg PO BEDTIME PRN PRN Reason: Insomnia Last Admin: 11/03/20 02:48 Dose: 50 mg Documented by: Vitamin D (Cholecalciferol (Vitamin D3) 25 Mcg Tablet) 50 mcg PO BEDTIME [facility] Last Admin: 11/23/20 22:12 Dose: Not Given Documented by: Allergies Allergies Allergy/AdvReac Type Severity Reaction Status Date / Time No Known Allergies Allergy Verified 07/21/20 16:39 Assessment & Plan Assessment & Plan (1) Schizophrenia, paranoid, subchronic with acute exacerbation: Status: Chronic Code(s): F20.0 - Paranoid schizophrenia Assessment and Plan: Continue current regime. Discharge planning for possibly the end of this week. Greater than 50% of the session was spent on counseling and/or coordination of care Informed Consent: does not understand Reason for contiued inpatient stay Substantial Risk for: harm to self, harm to others, inability to function, rapid decompensation and med/psych decompensation
[2020-11-25] MEDS: Omeprazole 20 MG CAPSULE.DR PO (10:21)
[2020-11-25] MEDS: cloZAPine 100 MG, cloZAPine 25 MG 125 MG PO (10:21)
[2020-11-25] MEDS: Ferrous Sulfate 324 MG TABLET.DR PO (10:21)
[2020-11-25] MEDS: Finasteride 5 MG TABLET PO (10:21)
[2020-11-25] MEDS: OLANZapine ODT 10 MG TAB.RAPDIS 20 MG TRANSLINGU ×2 (10:22→20:30)
[2020-11-25] MEDS: Benztropine Mesylate 1 MG TABLET PO (10:22)
[2020-11-25] MEDS: Mineral Oil/Petrolatum,White 106 GM Tube 1 APPL TOPICAL (10:22)
--- NOTE | 2020-11-25 21:20 | HO.PSYCHPN ---
Subjective Subjective Date of Service: 11/25/20 Reason For Visit: psychosis Subjective Notes: [place] Order and Conditional Voluntary Interim History: pt cooperative remains only partially med compliant aware of possible transfer to [facility] home seen out of room ambulating Medication Compliance: Intermittent Mental Status Exam Mental Status Exam Patient Appearance: Appropriate Patient Orientation: Person, Place, Time and Situation Level of Consciousness: Alert Patient Behavior: Talkative, Cooperative, Passive and Good Eye Contact Mood Description: Calm Affect Description: Constricted Patient Cognition Impaired: Yes Ability to Follow Directions: Fair (regarding medical condition) Speech Pattern: Spontaneous Speech Memory Description: Remote Impaired and Episodic Impaired Hallucinations: Auditory Delusions: Present Perceptual Disturbances: Depersonalization Thought Process: Distracted Thought Content: positive for Poverty of Content and positive for Thought Blocking Depressive Symptoms: Increased Anxiety Judgement: Poor Diagnostics Vital Signs (24Hr): Body Mass Index 38.4 Labs Results: 11/10/20 07:14 11/20/20 08:21 Labs: Laboratory Results - last 48 hr 11/24/20 08:22 Absolute Neuts (auto) 6.6 Imaging Radiology Impressions: ITS Impressions KUB X-Ray 07/22/20 17:13 IMPRESSION: Moderate volume of stool scattered in colon. No bowel obstruction. Medications Medications Current Medications Acetaminophen (Acetaminophen 325 Mg Tablet) 650 mg PO Q6H PRN PRN Reason: Headache/Pain Mild Scale (1-3) Last Admin: 10/22/20 00:22 Dose: 650 mg Documented by: Al Hydroxide/Mg Hydroxide (Magnesium Hydrox/Alum Hydrox 30 Ml Oral.Susp) 30 ml PO Q6H PRN PRN Reason: Heartburn/Nausea Atorvastatin Calcium (Atorvastatin Calcium 80 Mg Tablet) 80 mg PO BEDTIME [facility] Last Admin: 11/25/20 20:30 Dose: Not Given Documented by: Benztropine Mesylate (Benztropine Mesylate 1 Mg Tablet) 1 mg PO BID [facility] Last Admin: 11/25/20 20:30 Dose: Not Given Documented by: Clozapine 100 mg/ Clozapine 25 (mg) 125 mg PO DAILY [facility] Last Admin: 11/25/20 10:21 Dose: 125 mg Documented by: Ferrous Sulfate (Ferrous Sulfate 324 Mg Tablet.) 324 mg PO DAILY [facility] Last Admin: 11/25/20 10:21 Dose: 324 mg Documented by: Finasteride (Finasteride 5 Mg Tablet) 5 mg PO DAILY [facility] Last Admin: 11/25/20 10:21 Dose: 5 mg Documented by: Hydroxyzine HCl (Hydroxyzine Hcl 25 Mg Tablet) 25 mg PO BEDTIME PRN PRN Reason: Anxiety Last Admin: 08/17/20 03:00 Dose: 25 mg Documented by: Loperamide HCl (Loperamide Hcl 2 Mg Capsule) 2 mg PO Q4H PRN PRN Reason: Diarrhea Last Admin: 07/24/20 15:54 Dose: 2 mg Documented by: Magnesium Hydroxide (Milk Of Magnesia 30 Ml Oral.Susp) 30 ml PO DAILY PRN PRN Reason: Constipation Metoprolol Succinate (Metoprolol Succinate Er 50 Mg Tab.Er.24h) 50 mg PO DAILY [facility]; Protocol Last Admin: 11/25/20 10:22 Dose: Not Given Documented by: Multi-Ingred Cream/Lotion/Oil/Oint (Mineral Oil/Petrolatum,White 106 Gm Tube) 1 appl TOPICAL BID [facility] Last Admin: 11/25/20 20:30 Dose: Not Given Documented by: Multivitamins/Minerals (Multivitamin With Minerals Tablet) 1 tab PO DAILY [facility] Last Admin: 11/25/20 10:22 Dose: 1 tab Documented by: Patient Own Med ( (Biotene)) 1 each PO TID PRN PRN Reason: xerostomia Patient Own Medication (Thera Breath Dry Mouth Lozenge) 1 each PO Q4H PRN PRN Reason: Dry Mouth Last Admin: 11/16/20 13:38 Dose: 1 each Documented by: Nystatin (Nystatin Cream 15 Gm Tube) 1 appl TOPICAL DAILY [facility]; Protocol Last Admin: 11/25/20 10:22 Dose: Not Given Documented by: Olanzapine (Olanzapine 10 Mg Vial) 20 mg IM BID PRN PRN Reason: if pt ref po zydis per jim Last Admin: 11/22/20 21:21 Dose: 20 mg Documented by: Olanzapine (Olanzapine Odt 10 Mg Tab.Rapdis) 20 mg TRANSLINGU BID [facility] Last Admin: 11/25/20 20:30 Dose: 20 mg Documented by: Omeprazole (Omeprazole 20 Mg Capsule.Dr) 20 mg PO DAILY@0630 [facility] Last Admin: 11/25/20 10:21 Dose: 20 mg Documented by: Trazodone HCl (Trazodone Hcl 50 Mg Tablet) 50 mg PO BEDTIME PRN PRN Reason: Insomnia Last Admin: 11/03/20 02:48 Dose: 50 mg Documented by: Vitamin D (Cholecalciferol (Vitamin D3) 25 Mcg Tablet) 50 mcg PO BEDTIME [facility] Last Admin: 11/25/20 20:30 Dose: Not Given Documented by: Allergies Allergies Allergy/AdvReac Type Severity Reaction Status Date / Time No Known Allergies Allergy Verified 07/21/20 16:39 Assessment & Plan Assessment & Plan (1) Schizophrenia, paranoid, subchronic with acute exacerbation: Status: Chronic Code(s): F20.0 - Paranoid schizophrenia Assessment and Plan: cont clozapine Assessment and Plan: Continue current regime. Discharge planning for possibly the end of this week. Greater than 50% of the session was spent on counseling and/or coordination of care Reason for contiued inpatient stay Substantial Risk for: inability to function and med/psych decompensation
--- NOTE | 2020-11-26 08:16 | HO.PSYCHPN ---
Subjective Subjective Date of Service: 11/26/20 Reason For Visit: psychosis Subjective Notes: Conditional Voluntary Healthcare Proxy: Yes Guardianship: Yes Medical Problems Affecting Mental Status: No Interim History: On 11/25, review with Suresh program RN, [facility] med-psych residential program in [place] [phone] for pending transfer. Suresh reports they will not be able to implement [facility] order medications. If pt refuses medications they observe for decompensation and if this occurs they send pt to hospital for treatment. Suresh is unsure if pt will be followed by [facility] or [facility] prescriber. Review of medications variable compliance and hopes to transition back to Clozapine regime and taper back on Olanzapine. Juan reports today he is well, waiting for his brother to visit and bring some food. He states he is not wanting to go to the med/psych program in [place] as he prefers to remain hospitalized. I have been here for a while. Denies SE, complaints and reports he is sleeping and eating reasonably, but slept poorly last night. He is briefly visable in milieu, ambulatory and interactive with his team on one to one who report more isolation today with anxiety-possibly anticipating transfer his brother believes. Medication Compliance: Yes Side effects from medications: No Attending Groups: No Review of Systems Acute medical concerns: No Medical Review of Systems: unchanged Review of Systems Reports behavioral changes Psychiatric: Reports abnormal sleep pattern, Reports anxiety, Reports behavioral changes, Reports difficulty concentrating, Reports auditory hallucinations, Reports anhedonia, Reports paranoia and Reports visual hallucinations Mental Status Exam Mental Status Exam Patient Appearance: Appropriate Patient Orientation: Person, Place and Situation Level of Consciousness: Alert Patient Behavior: Guarded, Suspicious, Anxious, Avoidant and Poor Eye Contact Mood Description: Anxious and Flat Affect Description: Flat Patient Cognition Impaired: Yes Ability to Follow Directions: Fair Speech Pattern: Spontaneous Speech Memory Description: Remote Impaired and Episodic Impaired Hallucinations: Auditory Delusions: Paranoid Ideation Perceptual Disturbances: Depersonalization and Derealization Thought Process: Distracted Thought Content: positive for Perseveration and positive for Thought Blocking Depressive Symptoms: Increased Anxiety, Difficulty Sleeping and Difficulty Concentrating Judgement: Poor Diagnostics Vital Signs (24Hr): Body Mass Index 38.4 Labs Results: 11/10/20 07:14 11/20/20 08:21 Labs: Laboratory Results - last 48 hr 11/24/20 08:22 Absolute Neuts (auto) 6.6 Imaging Radiology Impressions: ITS Impressions KUB X-Ray 07/22/20 17:13 IMPRESSION: Moderate volume of stool scattered in colon. No bowel obstruction. Medications Medications Current Medications Acetaminophen (Acetaminophen 325 Mg Tablet) 650 mg PO Q6H PRN PRN Reason: Headache/Pain Mild Scale (1-3) Last Admin: 10/22/20 00:22 Dose: 650 mg Documented by: Al Hydroxide/Mg Hydroxide (Magnesium Hydrox/Alum Hydrox 30 Ml Oral.Susp) 30 ml PO Q6H PRN PRN Reason: Heartburn/Nausea Atorvastatin Calcium (Atorvastatin Calcium 80 Mg Tablet) 80 mg PO BEDTIME [facility] Last Admin: 11/25/20 20:30 Dose: Not Given Documented by: Benztropine Mesylate (Benztropine Mesylate 1 Mg Tablet) 1 mg PO BID [facility] Last Admin: 11/25/20 20:30 Dose: Not Given Documented by: Clozapine 100 mg/ Clozapine 25 (mg) 125 mg PO DAILY [facility] Last Admin: 11/25/20 10:21 Dose: 125 mg Documented by: Ferrous Sulfate (Ferrous Sulfate 324 Mg Tablet.Dr) 324 mg PO DAILY [facility] Last Admin: 11/25/20 10:21 Dose: 324 mg Documented by: Finasteride (Finasteride 5 Mg Tablet) 5 mg PO DAILY [facility] Last Admin: 11/25/20 10:21 Dose: 5 mg Documented by: Hydroxyzine HCl (Hydroxyzine Hcl 25 Mg Tablet) 25 mg PO BEDTIME PRN PRN Reason: Anxiety Last Admin: 08/17/20 03:00 Dose: 25 mg Documented by: Loperamide HCl (Loperamide Hcl 2 Mg Capsule) 2 mg PO Q4H PRN PRN Reason: Diarrhea Last Admin: 07/24/20 15:54 Dose: 2 mg Documented by: Magnesium Hydroxide (Milk Of Magnesia 30 Ml Oral.Susp) 30 ml PO DAILY PRN PRN Reason: Constipation Metoprolol Succinate (Metoprolol Succinate Er 50 Mg Tab.Er.24h) 50 mg PO DAILY [facility]; Protocol Last Admin: 11/25/20 10:22 Dose: Not Given Documented by: Multi-Ingred Cream/Lotion/Oil/Oint (Mineral Oil/Petrolatum,White 106 Gm Tube) 1 appl TOPICAL BID [facility] Last Admin: 11/25/20 20:30 Dose: Not Given Documented by: Multivitamins/Minerals (Multivitamin With Minerals Tablet) 1 tab PO DAILY [facility] Last Admin: 11/25/20 10:22 Dose: 1 tab Documented by: Patient Own Med ( (Biotene)) 1 each PO TID PRN PRN Reason: xerostomia Patient Own Medication (Thera Breath Dry Mouth Lozenge) 1 each PO Q4H PRN PRN Reason: Dry Mouth Last Admin: 11/16/20 13:38 Dose: 1 each Documented by: Nystatin (Nystatin Cream 15 Gm Tube) 1 appl TOPICAL DAILY [facility]; Protocol Last Admin: 11/25/20 10:22 Dose: Not Given Documented by: Olanzapine (Olanzapine 10 Mg Vial) 20 mg IM BID PRN PRN Reason: if pt ref po zydis per jim Last Admin: 11/22/20 21:21 Dose: 20 mg Documented by: Olanzapine (Olanzapine Odt 10 Mg Tab.Rapdis) 20 mg TRANSLINGU BID [facility] Last Admin: 11/25/20 20:30 Dose: 20 mg Documented by: Omeprazole (Omeprazole 20 Mg Capsule.Dr) 20 mg PO DAILY@0630 [facility] Last Admin: 11/25/20 10:21 Dose: 20 mg Documented by: Trazodone HCl (Trazodone Hcl 50 Mg Tablet) 50 mg PO BEDTIME PRN PRN Reason: Insomnia Last Admin: 11/03/20 02:48 Dose: 50 mg Documented by: Vitamin D (Cholecalciferol (Vitamin D3) 25 Mcg Tablet) 50 mcg PO BEDTIME [facility] Last Admin: 11/25/20 20:30 Dose: Not Given Documented by: Allergies Allergies Allergy/AdvReac Type Severity Reaction Status Date / Time No Known Allergies Allergy Verified 07/21/20 16:39 Assessment & Plan Assessment & Plan (1) Schizophrenia, paranoid, subchronic with acute exacerbation: Status: Chronic Code(s): F20.0 - Paranoid schizophrenia Assessment and Plan: cont clozapine Assessment and Plan: Continue current regime. Discharge planning for possibly the end of this week. Greater than 50% of the session was spent on counseling and/or coordination of care Informed Consent: does not understand Reason for contiued inpatient stay Substantial Risk for: harm to self, harm to others, inability to function, rapid decompensation and med/psych decompensation
[2020-11-26] MEDS: OLANZapine ODT 10 MG TAB.RAPDIS 20 MG TRANSLINGU ×2 (08:39→20:37)
[2020-11-26] MEDS: Omeprazole 20 MG CAPSULE.DR PO (08:40)
[2020-11-26] MEDS: Ferrous Sulfate 324 MG TABLET.DR PO (08:40)
[2020-11-26] MEDS: cloZAPine 100 MG, cloZAPine 25 MG 125 MG PO (08:40)
[2020-11-26] MEDS: Benztropine Mesylate 1 MG TABLET PO (08:40)
[2020-11-26] MEDS: Mineral Oil/Petrolatum,White 106 GM Tube 1 APPL TOPICAL (08:40)
[2020-11-26] MEDS: Finasteride 5 MG TABLET PO (08:40)
[2020-11-27 07:00] VITALS: BMI 39.9
[2020-11-27] MEDS: Benztropine Mesylate 1 MG TABLET PO (09:34)
[2020-11-27] MEDS: cloZAPine 100 MG, cloZAPine 25 MG 125 MG PO (09:34)
[2020-11-27] MEDS: OLANZapine ODT 10 MG TAB.RAPDIS 20 MG TRANSLINGU ×2 (09:34→21:37)
[2020-11-27] MEDS: Omeprazole 20 MG CAPSULE.DR PO (09:35)
[2020-11-27] MEDS: Ferrous Sulfate 324 MG TABLET.DR PO (09:35)
[2020-11-27] MEDS: Finasteride 5 MG TABLET PO (09:46)
--- NOTE | 2020-11-27 21:20 | P.PNPSI_ITS ---
Subjective Subjective Date of Service: 11/27/20 Reason For Visit: psychosis Subjective Notes: Conditional Voluntary Interim History: Preparing for discharge on 12/01 to medical/psychiatric intermediate in [place]. Team Suresh CHRISTIANSON in exchanged voice mails states they will accept VNA assist for Jesse's implementation if pt refuses his medication. Team is working on making a VNA connection for pt. Accepting of medications today, isolative yet interactive per team report. Denies current symptoms. Medication Compliance: Yes Side effects from medications: No Attending Groups: No Review of Systems Acute medical concerns: No Medical Review of Systems: unchanged Review of Systems Reports behavioral changes and Reports confusion Psychiatric: Reports behavioral changes, Reports confusion, Reports auditory hallucinations and Reports visual hallucinations Mental Status Exam Mental Status Exam Patient Appearance: Appropriate Patient Orientation: Person, Place and Situation Level of Consciousness: Alert Patient Behavior: Guarded, Suspicious, Anxious, Avoidant and Poor Eye Contact Mood Description: Anxious and Flat Affect Description: Flat Patient Cognition Impaired: Yes Ability to Follow Directions: Fair Speech Pattern: Spontaneous Speech Memory Description: Remote Impaired and Episodic Impaired Hallucinations: Auditory Delusions: Paranoid Ideation Perceptual Disturbances: Depersonalization and Derealization Thought Process: Distracted Thought Content: positive for Perseveration and positive for Thought Blocking Depressive Symptoms: Increased Anxiety, Difficulty Sleeping and Difficulty Concentrating Judgement: Poor Diagnostics Vital Signs (24Hr): Body Mass Index 39.9 Labs Results: 11/10/20 07:14 11/20/20 08:21 Imaging Radiology Impressions: ITS Impressions KUB X-Ray 07/22/20 17:13 IMPRESSION: Moderate volume of stool scattered in colon. No bowel obstruction. Medications Medications Current Medications Acetaminophen (Acetaminophen 325 Mg Tablet) 650 mg PO Q6H PRN PRN Reason: Headache/Pain Mild Scale (1-3) Last Admin: 10/22/20 00:22 Dose: 650 mg Documented by: Al Hydroxide/Mg Hydroxide (Magnesium Hydrox/Alum Hydrox 30 Ml Oral.Susp) 30 ml PO Q6H PRN PRN Reason: Heartburn/Nausea Atorvastatin Calcium (Atorvastatin Calcium 80 Mg Tablet) 80 mg PO BEDTIME [facility] Last Admin: 11/26/20 20:44 Dose: Not Given Documented by: Benztropine Mesylate (Benztropine Mesylate 1 Mg Tablet) 1 mg PO BID [facility] Last Admin: 11/27/20 09:34 Dose: 1 mg Documented by: Clozapine 100 mg/ Clozapine 25 (mg) 125 mg PO DAILY [facility] Last Admin: 11/27/20 09:34 Dose: 125 mg Documented by: Ferrous Sulfate (Ferrous Sulfate 324 Mg Tablet.Dr) 324 mg PO DAILY [facility] Last Admin: 11/27/20 09:35 Dose: 324 mg Documented by: Finasteride (Finasteride 5 Mg Tablet) 5 mg PO DAILY [facility] Last Admin: 11/27/20 09:46 Dose: 5 mg Documented by: Hydroxyzine HCl (Hydroxyzine Hcl 25 Mg Tablet) 25 mg PO BEDTIME PRN PRN Reason: Anxiety Last Admin: 08/17/20 03:00 Dose: 25 mg Documented by: Loperamide HCl (Loperamide Hcl 2 Mg Capsule) 2 mg PO Q4H PRN PRN Reason: Diarrhea Last Admin: 07/24/20 15:54 Dose: 2 mg Documented by: Magnesium Hydroxide (Milk Of Magnesia 30 Ml Oral.Susp) 30 ml PO DAILY PRN PRN Reason: Constipation Metoprolol Succinate (Metoprolol Succinate Er 50 Mg Tab.Er.24h) 50 mg PO DAILY [facility]; Protocol Last Admin: 11/27/20 10:13 Dose: Not Given Documented by: Multi-Ingred Cream/Lotion/Oil/Oint (Mineral Oil/Petrolatum,White 106 Gm Tube) 1 appl TOPICAL BID [facility] Last Admin: 11/27/20 10:14 Dose: Not Given Documented by: Multivitamins/Minerals (Multivitamin With Minerals Tablet) 1 tab PO DAILY [facility] Last Admin: 11/27/20 09:35 Dose: 1 tab Documented by: Patient Own Med ( (Biotene)) 1 each PO TID PRN PRN Reason: xerostomia Patient Own Medication (Thera Breath Dry Mouth Lozenge) 1 each PO Q4H PRN PRN Reason: Dry Mouth Last Admin: 11/16/20 13:38 Dose: 1 each Documented by: Nystatin (Nystatin Cream 15 Gm Tube) 1 appl TOPICAL DAILY [facility]; Protocol Last Admin: 11/27/20 10:14 Dose: Not Given Documented by: Olanzapine (Olanzapine 10 Mg Vial) 20 mg IM BID PRN PRN Reason: if pt ref po zydis per jim Last Admin: 11/22/20 21:21 Dose: 20 mg Documented by: Olanzapine (Olanzapine Odt 10 Mg Tab.Rapdis) 20 mg TRANSLINGU BID [facility] Last Admin: 11/27/20 09:34 Dose: 20 mg Documented by: Omeprazole (Omeprazole 20 Mg Capsule.Dr) 20 mg PO DAILY@0630 [facility] Last Admin: 11/27/20 09:35 Dose: 20 mg Documented by: Trazodone HCl (Trazodone Hcl 50 Mg Tablet) 50 mg PO BEDTIME PRN PRN Reason: Insomnia Last Admin: 11/03/20 02:48 Dose: 50 mg Documented by: Vitamin D (Cholecalciferol (Vitamin D3) 25 Mcg Tablet) 50 mcg PO BEDTIME [facility] Last Admin: 11/26/20 20:43 Dose: Not Given Documented by: Allergies Allergies Allergy/AdvReac Type Severity Reaction Status Date / Time No Known Allergies Allergy Verified 07/21/20 16:39 Assessment & Plan Assessment & Plan (1) Schizophrenia, paranoid, subchronic with acute exacerbation: Status: Chronic Code(s): F20.0 - Paranoid schizophrenia Assessment and Plan: cont clozapine Assessment and Plan: Continue current regime. Discharge planned for 12/01/20. Greater than 50% of the session was spent on counseling and/or coordination of care Informed Consent: does not understand Reason for contiued inpatient stay Substantial Risk for: harm to self, harm to others, inability to function and rapid decompensation
[2020-11-27] MEDS: Mineral Oil/Petrolatum,White 106 GM Tube 1 APPL TOPICAL (22:21)
[2020-11-28] MEDS: OLANZapine ODT 10 MG TAB.RAPDIS 20 MG TRANSLINGU ×2 (09:07→22:34)
[2020-11-28] MEDS: cloZAPine 100 MG, cloZAPine 25 MG 125 MG PO (09:07)
[2020-11-28] MEDS: Ferrous Sulfate 324 MG TABLET.DR PO (09:07)
--- NOTE | 2020-11-28 19:02 | P.PNPSI_ITS ---
Subjective Subjective Date of Service: 11/28/20 Reason For Visit: psychosis Subjective Notes: Conditional Voluntary Interim History: Continues to have auditory perceptual alterations. Tolerating Clozaril at 125 mg daily with Olanzapine. No adverse effects he reports. Team reports he has had a good day. Preparing for transition to [facility] medical/psychiatric half-way. We continue to be careful with titration as pt and brother report with former Clozaril dosages pt had several side effects and this has contributed to his non-compliance during this hospitalization. Holding at 125 mg daily along with Olanzapine per [facility]. Medication Compliance: Yes Side effects from medications: No Attending Groups: No Review of Systems Acute medical concerns: No Medical Review of Systems: unchanged Review of Systems Psychiatric: Reports abnormal sleep pattern, Reports auditory hallucinations and Reports paranoia Mental Status Exam Mental Status Exam Patient Appearance: Appropriate Patient Orientation: Person, Place and Situation Level of Consciousness: Alert Patient Behavior: Guarded, Suspicious, Anxious, Avoidant and Poor Eye Contact Mood Description: Anxious and Flat Affect Description: Flat Patient Cognition Impaired: Yes Ability to Follow Directions: Fair Speech Pattern: Spontaneous Speech Memory Description: Remote Impaired and Episodic Impaired Hallucinations: Auditory Delusions: Paranoid Ideation Perceptual Disturbances: Depersonalization and Derealization Thought Process: Distracted Thought Content: positive for Perseveration and positive for Thought Blocking Depressive Symptoms: Increased Anxiety, Difficulty Sleeping and Difficulty Concentrating Judgement: Poor Diagnostics Vital Signs (24Hr): Body Mass Index 39.9 Labs Results: 11/10/20 07:14 11/20/20 08:21 Imaging Radiology Impressions: ITS Impressions KUB X-Ray 07/22/20 17:13 IMPRESSION: Moderate volume of stool scattered in colon. No bowel obstruction. Medications Medications Current Medications Acetaminophen (Acetaminophen 325 Mg Tablet) 650 mg PO Q6H PRN PRN Reason: Headache/Pain Mild Scale (1-3) Last Admin: 10/22/20 00:22 Dose: 650 mg Documented by: Al Hydroxide/Mg Hydroxide (Magnesium Hydrox/Alum Hydrox 30 Ml Oral.Susp) 30 ml PO Q6H PRN PRN Reason: Heartburn/Nausea Atorvastatin Calcium (Atorvastatin Calcium 80 Mg Tablet) 80 mg PO BEDTIME [facility] Last Admin: 11/27/20 22:19 Dose: Not Given Documented by: Benztropine Mesylate (Benztropine Mesylate 1 Mg Tablet) 1 mg PO BID [facility] Last Admin: 11/28/20 09:10 Dose: Not Given Documented by: Clozapine 100 mg/ Clozapine 25 (mg) 125 mg PO DAILY [facility] Last Admin: 11/28/20 09:07 Dose: 125 mg Documented by: Ferrous Sulfate (Ferrous Sulfate 324 Mg Tablet.Dr) 324 mg PO DAILY [facility] Last Admin: 11/28/20 09:07 Dose: 324 mg Documented by: Finasteride (Finasteride 5 Mg Tablet) 5 mg PO DAILY [facility] Last Admin: 11/28/20 09:10 Dose: Not Given Documented by: Hydroxyzine HCl (Hydroxyzine Hcl 25 Mg Tablet) 25 mg PO BEDTIME PRN PRN Reason: Anxiety Last Admin: 08/17/20 03:00 Dose: 25 mg Documented by: Loperamide HCl (Loperamide Hcl 2 Mg Capsule) 2 mg PO Q4H PRN PRN Reason: Diarrhea Last Admin: 07/24/20 15:54 Dose: 2 mg Documented by: Magnesium Hydroxide (Milk Of Magnesia 30 Ml Oral.Susp) 30 ml PO DAILY PRN PRN Reason: Constipation Metoprolol Succinate (Metoprolol Succinate Er 50 Mg Tab.Er.24h) 50 mg PO DAILY [facility]; Protocol Last Admin: 11/28/20 09:10 Dose: Not Given Documented by: Multi-Ingred Cream/Lotion/Oil/Oint (Mineral Oil/Petrolatum,White 106 Gm Tube) 1 appl TOPICAL BID [facility] Last Admin: 11/28/20 09:10 Dose: Not Given Documented by: Multivitamins/Minerals (Multivitamin With Minerals Tablet) 1 tab PO DAILY [facility] Last Admin: 11/28/20 09:10 Dose: Not Given Documented by: Patient Own Med ( (Biotene)) 1 each PO TID PRN PRN Reason: xerostomia Patient Own Medication (Thera Breath Dry Mouth Lozenge) 1 each PO Q4H PRN PRN Reason: Dry Mouth Last Admin: 11/16/20 13:38 Dose: 1 each Documented by: Nystatin (Nystatin Cream 15 Gm Tube) 1 appl TOPICAL DAILY [facility]; Protocol Last Admin: 11/28/20 09:10 Dose: Not Given Documented by: Olanzapine (Olanzapine 10 Mg Vial) 20 mg IM BID PRN PRN Reason: if pt ref po zydis per jim Last Admin: 11/22/20 21:21 Dose: 20 mg Documented by: Olanzapine (Olanzapine Odt 10 Mg Tab.Rapdis) 20 mg TRANSLINGU BID [facility] Last Admin: 11/28/20 09:07 Dose: 20 mg Documented by: Omeprazole (Omeprazole 20 Mg Capsule.Dr) 20 mg PO DAILY@0630 [facility] Last Admin: 11/28/20 09:09 Dose: Not Given Documented by: Trazodone HCl (Trazodone Hcl 50 Mg Tablet) 50 mg PO BEDTIME PRN PRN Reason: Insomnia Last Admin: 11/03/20 02:48 Dose: 50 mg Documented by: Vitamin D (Cholecalciferol (Vitamin D3) 25 Mcg Tablet) 50 mcg PO BEDTIME [facility] Last Admin: 11/27/20 22:21 Dose: Not Given Documented by: Allergies Allergies Allergy/AdvReac Type Severity Reaction Status Date / Time No Known Allergies Allergy Verified 07/21/20 16:39 Assessment & Plan Assessment & Plan (1) Schizophrenia, paranoid, subchronic with acute exacerbation: Status: Chronic Code(s): F20.0 - Paranoid schizophrenia Assessment and Plan: cont clozapine /olanzapine Assessment and Plan: Continue current regime. Discharge planned for 12/01/20. Greater than 50% of the session was spent on counseling and/or coordination of care Informed Consent: does not understand Reason for contiued inpatient stay Substantial Risk for: harm to self, harm to others, inability to function, rapid decompensation and med/psych decompensation
[2020-11-29] MEDS: cloZAPine 100 MG, cloZAPine 25 MG 125 MG PO (09:01)
[2020-11-29] MEDS: Finasteride 5 MG TABLET PO (09:01)
[2020-11-29] MEDS: Mineral Oil/Petrolatum,White 106 GM Tube 1 APPL TOPICAL (09:02)
[2020-11-29] MEDS: Ferrous Sulfate 324 MG TABLET.DR PO (09:02)
[2020-11-29] MEDS: Benztropine Mesylate 1 MG TABLET PO (09:02)
[2020-11-29] MEDS: Omeprazole 20 MG CAPSULE.DR PO (09:02)
[2020-11-29] MEDS: OLANZapine ODT 10 MG TAB.RAPDIS 20 MG TRANSLINGU ×2 (09:09→19:51)
--- NOTE | 2020-11-29 13:31 | P.PNPSI_ITS ---
Subjective Subjective Date of Service: 11/29/20 Reason For Visit: psychosis Interim History: Patient sitting in chair watching television Patient is calm, friendly and cooperative Patient says the auditory hallucinations are not bother him too much today. Mineral Engineer and patient discussed his pending discharge and the place where he will be going which to him sounds like a nice place, with a deck, access to the outdoors where he can smoke cigars and a nice bathroom. He talked about loweri ng his medications once he is there and poem writer recommended him to remain at least on his current medication regimen which he says he will probably do. Patient has no complaints or requests. Mental Status Exam Mental Status Exam Narrative: Patient Appearance:?Appropriate, sitting in recliner chair Patient Orientation:?Person, Place and Situation Level of Consciousness:?Alert Patient Behavior:?calm, cooperative, friendly Mood Description: ok Affect Description:?Flat Patient Cognition Impaired:?Yes Ability to Follow Directions:?Fair Speech Pattern:?Spontaneous Speech Memory Description:?Remote Impaired and Episodic Impaired Hallucinations:?Auditory Delusions:?Paranoid Ideation Perceptual Disturbances:?Depersonalization and Derealization Thought Process:?Distracted Thought Content:?positive for Perseveration and positive for Thought Blocking Depressive Symptoms:?Increased Anxiety, Difficulty Sleeping and Difficulty Concentrating Judgement:?Poor Diagnostics Vital Signs (24Hr): Body Mass Index 39.9 Labs Results: 11/10/20 07:14 11/20/20 08:21 Imaging Radiology Impressions: ITS Impressions KUB X-Ray 07/22/20 17:13 IMPRESSION: Moderate volume of stool scattered in colon. No bowel obstruction. Medications Medications Current Medications Acetaminophen (Acetaminophen 325 Mg Tablet) 650 mg PO Q6H PRN PRN Reason: Headache/Pain Mild Scale (1-3) Last Admin: 10/22/20 00:22 Dose: 650 mg Documented by: Al Hydroxide/Mg Hydroxide (Magnesium Hydrox/Alum Hydrox 30 Ml Oral.Susp) 30 ml PO Q6H PRN PRN Reason: Heartburn/Nausea Atorvastatin Calcium (Atorvastatin Calcium 80 Mg Tablet) 80 mg PO BEDTIME [facility] Last Admin: 11/28/20 21:29 Dose: Not Given Documented by: Benztropine Mesylate (Benztropine Mesylate 1 Mg Tablet) 1 mg PO BID [facility] Last Admin: 11/29/20 09:02 Dose: 1 mg Documented by: Clozapine 100 mg/ Clozapine 25 (mg) 125 mg PO DAILY [facility] Last Admin: 11/29/20 09:01 Dose: 125 mg Documented by: Ferrous Sulfate (Ferrous Sulfate 324 Mg Tablet.Dr) 324 mg PO DAILY [facility] Last Admin: 11/29/20 09:02 Dose: 324 mg Documented by: Finasteride (Finasteride 5 Mg Tablet) 5 mg PO DAILY [facility] Last Admin: 11/29/20 09:01 Dose: 5 mg Documented by: Hydroxyzine HCl (Hydroxyzine Hcl 25 Mg Tablet) 25 mg PO BEDTIME PRN PRN Reason: Anxiety Last Admin: 08/17/20 03:00 Dose: 25 mg Documented by: Loperamide HCl (Loperamide Hcl 2 Mg Capsule) 2 mg PO Q4H PRN PRN Reason: Diarrhea Last Admin: 07/24/20 15:54 Dose: 2 mg Documented by: Magnesium Hydroxide (Milk Of Magnesia 30 Ml Oral.Susp) 30 ml PO DAILY PRN PRN Reason: Constipation Metoprolol Succinate (Metoprolol Succinate Er 50 Mg Tab.Er.24h) 50 mg PO DAILY [facility]; Protocol Last Admin: 11/29/20 09:02 Dose: Not Given Documented by: Multi-Ingred Cream/Lotion/Oil/Oint (Mineral Oil/Petrolatum,White 106 Gm Tube) 1 appl TOPICAL BID [facility] Last Admin: 11/29/20 09:02 Dose: 1 appl Documented by: Multivitamins/Vitamin C (Multivitamin Tablet) 1 tab PO DAILY [facility] Patient Own Med ( (Biotene)) 1 each PO TID PRN PRN Reason: xerostomia Patient Own Medication (Thera Breath Dry Mouth Lozenge) 1 each PO Q4H PRN PRN Reason: Dry Mouth Last Admin: 11/16/20 13:38 Dose: 1 each Documented by: Nystatin (Nystatin Cream 15 Gm Tube) 1 appl TOPICAL DAILY [facility]; Protocol Last Admin: 11/29/20 09:03 Dose: Not Given Documented by: Olanzapine (Olanzapine 10 Mg Vial) 20 mg IM BID PRN PRN Reason: if pt ref po zydis per jim Last Admin: 11/22/20 21:21 Dose: 20 mg Documented by: Olanzapine (Olanzapine Odt 10 Mg Tab.Rapdis) 20 mg TRANSLINGU BID [facility] Last Admin: 11/29/20 09:09 Dose: 20 mg Documented by: Omeprazole (Omeprazole 20 Mg Capsule.) 20 mg PO DAILY@0630 [facility] Last Admin: 11/29/20 09:02 Dose: 20 mg Documented by: Trazodone HCl (Trazodone Hcl 50 Mg Tablet) 50 mg PO BEDTIME PRN PRN Reason: Insomnia Last Admin: 11/03/20 02:48 Dose: 50 mg Documented by: Vitamin D (Cholecalciferol (Vitamin D3) 25 Mcg Tablet) 50 mcg PO BEDTIME [facility] Last Admin: 11/28/20 21:30 Dose: Not Given Documented by: Allergies Allergies Allergy/AdvReac Type Severity Reaction Status Date / Time No Known Allergies Allergy Verified 07/21/20 16:39 Assessment & Plan Assessment & Plan (1) Schizophrenia, paranoid, subchronic with acute exacerbation: Status: Chronic Code(s): F20.0 - Paranoid schizophrenia Assessment and Plan: cont clozapine /olanzapine Assessment and Plan: Mineral Engineer covering 11/29 No changes to current treatment plan Continue current regime. Discharge planned for 12/01/20. Greater than 50% of the session was spent on counseling and/or coordination of care Reason for contiued inpatient stay Substantial Risk for: inability to function and rapid decompensation
[2020-11-29 18:00] VITALS: RESP 14
[2020-11-30] MEDS: Omeprazole 20 MG CAPSULE.DR PO (08:37)
[2020-11-30] MEDS: cloZAPine 100 MG, cloZAPine 25 MG 125 MG PO (08:37)
[2020-11-30] MEDS: Ferrous Sulfate 324 MG TABLET.DR PO (08:38)
[2020-11-30] MEDS: Mineral Oil/Petrolatum,White 106 GM Tube 1 APPL TOPICAL (08:38)
[2020-11-30] MEDS: Finasteride 5 MG TABLET PO (08:38)
[2020-11-30] MEDS: OLANZapine ODT 10 MG TAB.RAPDIS 20 MG TRANSLINGU ×2 (08:38→22:04)
[2020-11-30] MEDS: Benztropine Mesylate 1 MG TABLET PO ×2 (08:38→22:04)
--- NOTE | 2020-11-30 13:16 | P.PNPSI_ITS ---
Subjective Subjective Date of Service: 11/30/20 Reason For Visit: psychosis Interim History: pt says he's good and talking about discharge tomorrow. He says he feels ready and likes the way the place looked from the website; no complaints, no requests. Mental Status Exam Mental Status Exam Narrative: Patient Appearance:?Appropriate, sitting in recliner chair Patient Orientation:?Person, Place and Situation Level of Consciousness:?Alert Patient Behavior:?calm, cooperative, friendly Mood Description: ok Affect Description:?Flat Patient Cognition Impaired:?Yes Ability to Follow Directions:?Fair Speech Pattern:?Spontaneous Speech Memory Description:?Remote Impaired and Episodic Impaired Hallucinations:?Auditory Delusions:?Paranoid Ideation Perceptual Disturbances:?Depersonalization and Derealization Thought Process:?Distracted Thought Content:dischage Depressive Symptoms:?Increased Anxiety, Difficulty Sleeping and Difficulty Concentrating Judgement:?Poor Diagnostics Vital Signs (24Hr): Vital Signs - 24 hr 11/29/20 18:00 Respiratory Rate 14 Body Mass Index 39.9 Labs Results: 11/10/20 07:14 11/20/20 08:21 Imaging Radiology Impressions: ITS Impressions [facility] X-Ray 07/22/20 17:13 IMPRESSION: Moderate volume of stool scattered in colon. No bowel obstruction. Medications Medications Current Medications Acetaminophen (Acetaminophen 325 Mg Tablet) 650 mg PO Q6H PRN PRN Reason: Headache/Pain Mild Scale (1-3) Last Admin: 10/22/20 00:22 Dose: 650 mg Documented by: Al Hydroxide/Mg Hydroxide (Magnesium Hydrox/Alum Hydrox 30 Ml Oral.Susp) 30 ml PO Q6H PRN PRN Reason: Heartburn/Nausea Atorvastatin Calcium (Atorvastatin Calcium 80 Mg Tablet) 80 mg PO BEDTIME REPLACED BY [facility] Last Admin: 11/29/20 21:29 Dose: Not Given Documented by: Benztropine Mesylate (Benztropine Mesylate 1 Mg Tablet) 1 mg PO BID REPLACED BY [facility] Last Admin: 11/30/20 08:38 Dose: 1 mg Documented by: Clozapine 100 mg/ Clozapine 25 (mg) 125 mg PO DAILY REPLACED BY [facility] Last Admin: 11/30/20 08:37 Dose: 125 mg Documented by: Ferrous Sulfate (Ferrous Sulfate 324 Mg Tablet.) 324 mg PO DAILY REPLACED BY [facility] Last Admin: 11/30/20 08:38 Dose: 324 mg Documented by: Finasteride (Finasteride 5 Mg Tablet) 5 mg PO DAILY REPLACED BY [facility] Last Admin: 11/30/20 08:38 Dose: 5 mg Documented by: Hydroxyzine HCl (Hydroxyzine Hcl 25 Mg Tablet) 25 mg PO BEDTIME PRN PRN Reason: Anxiety Last Admin: 08/17/20 03:00 Dose: 25 mg Documented by: Loperamide HCl (Loperamide Hcl 2 Mg Capsule) 2 mg PO Q4H PRN PRN Reason: Diarrhea Last Admin: 07/24/20 15:54 Dose: 2 mg Documented by: Magnesium Hydroxide (Milk Of Magnesia 30 Ml Oral.Susp) 30 ml PO DAILY PRN PRN Reason: Constipation Metoprolol Succinate (Metoprolol Succinate Er 50 Mg Tab.Er.24h) 50 mg PO DAILY REPLACED BY [facility]; Protocol Last Admin: 11/30/20 08:38 Dose: Not Given Documented by: Multi-Ingred Cream/Lotion/Oil/Oint (Mineral Oil/Petrolatum,White 106 Gm Tube) 1 appl TOPICAL BID REPLACED BY [facility] Last Admin: 11/30/20 08:38 Dose: 1 appl Documented by: Multivitamins/Vitamin C (Multivitamin Tablet) 1 tab PO DAILY REPLACED BY [facility] Last Admin: 11/30/20 08:41 Dose: Not Given Documented by: Patient Own Med ( (Biotene)) 1 each PO TID PRN PRN Reason: xerostomia Patient Own Medication (Thera Breath Dry Mouth Lozenge) 1 each PO Q4H PRN PRN Reason: Dry Mouth Last Admin: 11/16/20 13:38 Dose: 1 each Documented by: Nystatin (Nystatin Cream 15 Gm Tube) 1 appl TOPICAL DAILY REPLACED BY [facility]; Protocol Last Admin: 11/30/20 08:38 Dose: Not Given Documented by: Olanzapine (Olanzapine 10 Mg Vial) 20 mg IM BID PRN PRN Reason: if pt ref po zydis per jim Last Admin: 11/22/20 21:21 Dose: 20 mg Documented by: Olanzapine (Olanzapine Odt 10 Mg Tab.Rapdis) 20 mg TRANSLINGU BID REPLACED BY [facility] Last Admin: 11/30/20 08:38 Dose: 20 mg Documented by: Omeprazole (Omeprazole 20 Mg Capsule.) 20 mg PO DAILY@0630 REPLACED BY [facility] Last Admin: 11/30/20 08:37 Dose: 20 mg Documented by: Trazodone HCl (Trazodone Hcl 50 Mg Tablet) 50 mg PO BEDTIME PRN PRN Reason: Insomnia Last Admin: 11/03/20 02:48 Dose: 50 mg Documented by: Vitamin D (Cholecalciferol (Vitamin D3) 25 Mcg Tablet) 50 mcg PO BEDTIME [facility] Last Admin: 11/29/20 21:29 Dose: Not Given Documented by: Allergies Allergies Allergy/AdvReac Type Severity Reaction Status Date / Time No Known Allergies Allergy Verified 07/21/20 16:39 Assessment & Plan Assessment & Plan (1) Schizophrenia, paranoid, subchronic with acute exacerbation: Status: Chronic Code(s): F20.0 - Paranoid schizophrenia Assessment and Plan: cont clozapine /olanzapine Assessment and Plan: Judicial Assistant covering 11/30 No changes to current treatment plan Continue current regime. Discharge planned for 12/01/20. Greater than 50% of the session was spent on counseling and/or coordination of care Reason for contiued inpatient stay Substantial Risk for: inability to function
[2020-12-01] MEDS: traZODone HCL 50 MG TABLET PO (02:10)
[2020-12-01 07:56] LABS: Neut%MD 67.5 %; WBCANC 10.4 X10*3/uL
[2020-12-01] MEDS: Benztropine Mesylate 1 MG TABLET PO (08:46)
[2020-12-01] MEDS: OLANZapine ODT 10 MG TAB.RAPDIS 20 MG TRANSLINGU (08:46)
[2020-12-01] MEDS: Ferrous Sulfate 324 MG TABLET.DR PO (08:46)
[2020-12-01] MEDS: Omeprazole 20 MG CAPSULE.DR PO (08:46)
[2020-12-01] MEDS: cloZAPine 100 MG, cloZAPine 25 MG 125 MG PO (08:46)
[2020-12-01] MEDS: Multivitamin TABLET 1 TAB PO (08:46)
[2020-12-01] MEDS: Finasteride 5 MG TABLET PO (08:46)
[2020-12-01] MEDS: Mineral Oil/Petrolatum,White 106 GM Tube 1 APPL TOPICAL (08:47)
--- NOTE | 2020-12-28 10:34 | PM.PSYDC ---
DS: Providers Provider Date of Service: 12/01/20 Date of admission: 07/23/20 21:13 Date of discharge: 12/01/20 Primary care physician: Alexa Andre MD Admitting clinician: Hannah Cade Attending physician on admission: Greg Solitario Consults: 07/24/20 11:50 Consult to Cardiology Routine Consulting Provider: Khurram Schreiber Reason for consultation: unsteady, hx of r HF Has provider been notified: Yes 07/28/20 14:32 Consult to Hospitalist Routine Consulting Provider: Hospitalist Reason For Exam: pt refusing oral meds/not ambulatry?anticoagulatio 08/10/20 19:08 Consult to Hospitalist Routine Consulting Provider: Hospitalist Reason For Exam: Swelling and lesions on left leg. Please evaluate 08/13/20 10:21 Consult to Hospitalist Routine Consulting Provider: Hospitalist Reason For Exam: elevated renal functions BUN 29, Creatinine 1.63 08/16/20 14:48 Consult to Nephrology Routine Consulting Provider: Yosi Alvarenga Reason for consultation: chandni 08/25/20 08:12 Consult to Hospitalist Routine Consulting Provider: Hospitalist Reason For Exam: declining RBC, HCT, HGB. Psychotic, refusing meds. 09/12/20 14:10 Consult to Podiatry Routine Consulting Provider: Leidy Crawley Reason for consultation: pt needs toenails cut-painful length Has provider been notified: No 09/23/20 14:50 Consult to Hospitalist Routine Consulting Provider: Hospitalist Reason For Exam: RLE redness-?beginning cellulitis 09/25/20 16:43 Consult to Cardiology Routine Consulting Provider: Blake Ortega Reason for consultation: re-eval-?restart plavix, lovenox,lisinopril,metoprolol-60+days refused Has provider been notified: No Attending physician on discharge: Greg Solitario Discharging clinician: Marissa Griffiths DS: Diagnosis Discharge Diagnosis (1) Schizophrenia, paranoid, subchronic with acute exacerbation: Status: Chronic DS: Medications Discharge Medications Home Medications: Previous Rx's Medication Instructions Recorded acetaminophen 325 mg tablet 650 mg PO Q6H PRN #60 tab 11/28/20 atorvastatin 80 mg tablet 80 mg PO BEDTIME #30 tab 11/28/20 benztropine 1 mg tablet 1 mg PO BID #60 tab 11/28/20 cholecalciferol (vitamin D3) 50 2,000 unit PO BEDTIME #30 tab 11/28/20 mcg (2,000 unit) tablet clozapine 25 mg tablet 125 mg PO DAILY #150 tab 11/28/20 ferrous sulfate 324 mg (65 mg 324 mg PO DAILY #30 tab 11/28/20 iron) tablet,delayed release finasteride 5 mg tablet 5 mg PO DAILY #30 tab 11/28/20 metoprolol succinate 50 mg 50 mg PO DAILY #30 tab 11/28/20 tablet,extended release 24 hr multivitamin with minerals 1 tab PO DAILY #30 tab 11/28/20 nystatin 100,000 unit/gram topical 1 appl TOPICAL DAILY #4 g 11/28/20 cream olanzapine 10 mg disintegrating 20 mg TRANSLINGUAL BID #120 tab 11/28/20 tablet olanzapine 10 mg intramuscular 20 mg IM BID PRN #14 ea 11/28/20 solution omeprazole 20 mg capsule,delayed 20 mg PO DAILY@0630 #30 cap 11/28/20 release trazodone 50 mg tablet 50 mg PO BEDTIME PRN #30 tab 11/28/20 white petrolatum-mineral oil 1 appl TOPICAL BID #4 g 11/28/20 topical cream (Dermacerin) Mental Status Exam Mental Status Exam Narrative: Patient Appearance:?Appropriate, sitting in recliner chair Patient Orientation:?Person, Place and Situation Level of Consciousness:?Alert Patient Behavior:?calm, cooperative, friendly Mood Description: ok Affect Description:?Flat Patient Cognition Impaired:?Yes Ability to Follow Directions:?Fair Speech Pattern:?Spontaneous Speech Memory Description:?Remote Impaired and Episodic Impaired Hallucinations:?Auditory Delusions:?Paranoid Ideation Perceptual Disturbances:?Depersonalization and Derealization Thought Process:?Distracted Thought Content:dischage Depressive Symptoms:?Increased Anxiety, Difficulty Sleeping and Difficulty Concentrating Judgement:?Poor Data Imaging Diagnostic Imaging Impressions KUB X-Ray 07/22/20 17:13 IMPRESSION: Moderate volume of stool scattered in colon. No bowel obstruction. DS: Summary Hospital Course Hospital Course: Pt admitted on a conditional voluntary. Upon admit, pt was presenting with severe psychosis, a symptom that had been present for most of his life. By history, Juan is a nursing home pt of Clozapine use. He was also post COVID. Team was informed that [facility], however it had and was in process of renewal. During this time pending renewal, pt essentially refused medications and treatment. He was maintained on one to one, for safety as well as so he could utilize a medical bed given his height of 6ft 9in and wt of 168.8 kg. [facility] [place] in [place] and team was given documentation to treat on 09/19/20. Fluphanazine was trialed briefly with no benefit. As a result, one of the alternatives, Olanzapine was titrated to 40 mg daily po with some benefit around week five of trial. During this time pt's Clozapine was retitrated carefully with his brother Mina's encouragement as Juan had not wanted to return to Clozapine due to previously high doses with his reported side effects. The nursing and social service teams worked with Juan extensively during the entire admission to encourage treatment compliance, appropriate self care and regaining of indepedence so he could return to a least restrictive environment. Pt continued to experience a decrease in psychosis with the regime of Olanzapine and Clozapine and was transferred to a medical psychiatric shelter home under the care of [facility] Time spent discussing smoking cessation with patient: 3 to 10 minutes Status at Discharge Cognitive/behavioral status at discharge: Alert, non-suicidal, psychosis present but without extreme sx effecting safety. Functional status at discharge: independent ambulation Overall status at discharge: patient is progressing back to baseline Time Spent with Patient Time attestation: Total time spent providing and/or coordinating discharge services: 35 Time spent: Greater than 30 minutes Discharge Plan Discharge Anticipated Discharge Date/Time: 12/01/20 12:09 Patient Disposition: Xfer Other Discharge Diagnosis: Paranoid Schizophrenia Hypertension HLD PVD Diabetes Referrals: Alexa Andre MD [Primary Care Provider] - 1 Week Discharge Medications: New acetaminophen 325 mg Tablet 650 mg PO Q6H PRN (Reason: Headache/Pain Mild Scale (1-3)) Qty: 60 RF: 0 metoprolol succinate 50 mg Tablet Extended Release 24 Hr 50 mg PO DAILY Qty: 30 RF: 0 benztropine 1 mg Tablet 1 mg PO BID Qty: 60 RF: 0 olanzapine 10 mg Tablet,Disintegrating 20 mg translingual BID Qty: 120 RF: 0 clozapine 25 mg Tablet 125 mg PO DAILY Qty: 150 RF: 0 olanzapine 10 mg Recon Soln 20 mg IM BID PRN (Reason: if pt ref po zydis per jim) Qty: 14 RF: 4 ferrous sulfate 324 mg (65 mg iron) Tablet,Delayed Release (Dr/Ec) 324 mg PO DAILY Qty: 30 RF: 0 trazodone 50 mg Tablet 50 mg PO BEDTIME PRN (Reason: Insomnia) Qty: 30 RF: 0 nystatin 100,000 unit/gram Cream 1 appl topical DAILY Qty: 4 RF: 0 omeprazole 20 mg Capsule,Delayed Release(Dr/Ec) 20 mg PO DAILY@0630 Qty: 30 RF: 0 multivitamin with minerals Tablet 1 tab PO DAILY Qty: 30 RF: 0 Dermacerin Cream 1 appl topical BID Qty: 4 RF: 0 Continued atorvastatin 80 mg Tablet 80 mg PO BEDTIME Qty: 30 RF: 0 finasteride 5 mg Tablet 5 mg PO DAILY Qty: 30 RF: 0 Changed cholecalciferol (vitamin D3) 50 mcg (2,000 unit) Tablet 2,000 unit PO BEDTIME Qty: 30 RF: 0 Discontinued clopidogrel 75 mg Tablet 75 mg PO DAILY RF: 0 aspirin 81 mg Capsule,Delayed Release(Dr/Ec) 81 mg PO DAILY RF: 0 clozapine [Clozaril] 200 mg Tablet 200 mg PO DAILY RF: 0 clozapine [Clozaril] 200 mg Tablet 400 mg PO BEDTIME RF: 0 docusate sodium 100 mg Capsule 100 mg PO BEDTIME RF: 0 furosemide [Lasix] 40 mg Tablet 40 mg PO BID RF: 0 pantoprazole [Protonix] 20 mg Tablet,Delayed Release (Dr/Ec) 40 mg PO DAILY RF: 0 tamsulosin 0.4 mg Capsule 0.4 mg PO DAILY RF: 0 lisinopril 2.5 mg Tablet 2.5 mg PO DAILY RF: 0 metoprolol succinate 25 mg Capsule,Sprinkle,Er 24hr 75 mg PO DAILY RF: 0 magnesium oxide 400 mg magnesium Tablet 800 mg PO DAILY RF: 0 metformin 1,000 mg Tablet 1,000 mg PO BID RF: 0 Discharge Orders: Discharge Order (Routine); Ordered 12/01/20 Ordered By: Hannah Cade Diet: diabetic diet Activity on Discharge: As tolerated Stand Alone Forms: Patient Portal Discharge page, Community Support Other Ambulatory Orders: Complete Blood Count Auto Diff (Routine) Timeframe: 2 Weeks Facility: [facility] - Location: Laboratory Ordered By: Hannah Cade Care Plan Goals: 1. Maintain mood 2. No aggression towards self or others 3. No SI/HI 4. Decrease delusions and AH Health Concerns: 1. Follow up with PCP Plan of Treatment: 1. Take medications as prescribed 2. Go to nearest ED or 911 in event of emergency Assessment: Much less paranoia, less AH/VH. Much more organized and coherent. No signs of aggression towards self or others. Discharge Date/Time: 12/01/20 13:45
== END 2020-12-01 13:45 | disposition other institution (70) | DRG 885 ==
LOC: HO.ED 07-22 00:24 → HO.PM5 07-23 21:19
PROVIDERS: Family Medicine; Hospitalist; Internal Medicine; Nurse Practitioner Family; Physician Assistant Medical; Registered Nurse; Social Worker; Admitting Provider Clinical Nurse Specialist Psychiatric/Mental Health; Emergency Provider Emergency Medicine; PCP Internal Medicine; Visit Provider Clinical Nurse Specialist Psychiatric/Mental Health, Adult
DX: F20.0 Paranoid schizophrenia (principal); N17.9 Acute kidney failure, unspecified; I13.0 Hypertensive heart and chronic kidney disease with heart failure and stage 1 through stage 4 chronic kidney disease, or unspecified chronic kidney disease; E78.5 Hyperlipidemia, unspecified; I25.10 Atherosclerotic heart disease of native coronary artery without angina pectoris; K21.9 Gastro-esophageal reflux disease without esophagitis; E11.51 Type 2 diabetes mellitus with diabetic peripheral angiopathy without gangrene; E11.22 Type 2 diabetes mellitus with diabetic chronic kidney disease; N18.9 Chronic kidney disease, unspecified; I50.9 Heart failure, unspecified; Z20.822 Contact with and (suspected) exposure to COVID-19; Z79.899 Other long term (current) drug therapy
CPT/HCPCS: 36415; 74018; 80048; 80053; 80061; 80076; 82436; 82565; 82607; 82746; 82947; 83036; 83540; 83735; 83880; 83935; 84133; 84300; 84443; 85025; 85048; 85379; 87635; 93005; 96372; 97161; 97162; 99232; 99285; J1650

== ENCOUNTER 2021-04-14 12:39 | Emergency (ER) | payer OTHER, MEDICARE, MEDICAID, SELFPAY ==
--- NOTE | ~2021-04-14 | CT_ITS ---
EXAMINATION: CT ABDOMEN AND PELVIS WITHOUT CONTRAST CLINICAL INFORMATION: No bowel movement in 2 weeks COMPARISON: None TECHNIQUE: Multidetector volumetric imaging was performed from the superior aspect of the liver through the pubic symphysis. Sagittal and coronal reformatted images were obtained on the technologist's workstation. This CT examination was performed using dose optimization techniques as appropriate, variously including the following: *Automated exposure control *Adjustment of mA and/or kV according to patient size (this includes techniques or standardized protocols for targeted exams where dose is matched to indication/reason for exam; i.e. extremities or head) *Use of iterative reconstruction technique DLP: 1321 mGy-cm FINDINGS: There is a large amount of motion artifact present. LUNG BASES: The visualized lung bases are unremarkable. No pleural or pericardial effusion. Aortic valve calcification present. Moderate-sized hiatal hernia seen. LIVER, GALLBLADDER, AND BILIARY TREE: The liver is normal in size, shape, and attenuation. No focal hepatic lesion or biliary ductal dilatation is present. The gallbladder is unremarkable with no evidence of radiopaque gallstones, gallbladder wall thickening, or obvious pericholecystic inflammatory changes. PANCREAS: There is the appearance of some hazy density around the pancreatic head however this appears be artifactual in nature from breathing artifact. No pancreatic mass is seen. No peripancreatic fluid. SPLEEN: Unremarkable. ADRENAL GLANDS: Unremarkable. KIDNEYS AND URETERS: The kidneys are normal in size, shape, and attenuation. No hydronephrosis, hydroureter, or calculi seen. There is mild perinephric stranding. BLADDER: Unremarkable. GASTROINTESTINAL TRACT: No dilated loops of large or small bowel are evident. No free air or free fluid. There is a moderate size hiatal hernia present. There is formed stool seen within nondilated rectosigmoid colon. There is a moderate stool burden within the remainder of the colon. ABDOMINAL WALL: No significant hernia is appreciated. LYMPH NODES: No lymphadenopathy appreciated. VASCULAR: Unremarkable. PELVIC VISCERA: Unremarkable. OSSEOUS STRUCTURES: No destructive bony lesions identified. There is degenerative marginal spurring seen at multiple levels in the lower thoracic spine. There is disc space narrowing seen with vacuum disc phenomena at the L4-L5 level. CT/CT abdomen pelvis wo con IMPRESSION: Moderate stool burden within the colon without evidence of ileus or obstruction. No evidence of obstructive uropathy. Moderate size hiatal hernia. Fleischner guidelines were followed.
--- NOTE | 2021-04-14 13:11 | ED.GENADULT ---
HPI - General Adult General Chief complaint: Psychiatric Symptoms <Guillaume Black MD - Last Filed: 04/14/21 13:18> Stated complaint: Sore throat <Guillaume Black MD - Last Filed: 04/14/21 13:18> Time Seen by Provider: 04/14/21 12:44 <Guillaume Black MD - Last Filed: 04/14/21 13:18> Source: patient <Guillaume Black MD - Last Filed: 04/14/21 13:18> History of Present Illness HPI narrative: Patient states for the past 3 days he has had a sore throat. Positive cough. No sputum. No fevers or chills. He states he has been able to drink liquid but every time he eats solid food he vomits. Last episode of vomiting was yesterday. No constipation or diarrhea. 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 He denies abdominal pain. No urinary symptoms He states he had a COVID vaccine 1 week ago. No fevers or chills No alleviating or exacerbating factors He lives in a [facility]. There is apparent concerned that in the past when he refuses to eat, it has been a symptom of impending decompensation of his chronic schizophrenia Patient denies hearing voices at this time he denies all other complaints <Guillaume Black MD - Last Filed: 04/14/21 13:18> Related Data Home medications: Home Medications Medication Instructions Recorded Confirmed clozapine 25 mg tablet 25 mg PO DAILY 04/14/21 04/14/21 Previous Rx's Medication Instructions Recorded acetaminophen 325 mg tablet 650 mg PO Q6H PRN #60 tab 11/28/20 atorvastatin 80 mg tablet 80 mg PO BEDTIME #30 tab 11/28/20 benztropine 1 mg tablet 1 mg PO BID #60 tab 11/28/20 cholecalciferol (vitamin D3) 50 2,000 unit PO BEDTIME #30 tab 11/28/20 mcg (2,000 unit) tablet ferrous sulfate 324 mg (65 mg 324 mg PO DAILY #30 tab 11/28/20 iron) tablet,delayed release finasteride 5 mg tablet 5 mg PO DAILY #30 tab 11/28/20 metoprolol succinate 50 mg 50 mg PO DAILY #30 tab 11/28/20 tablet,extended release 24 hr multivitamin with minerals 1 tab PO DAILY #30 tab 11/28/20 nystatin 100,000 unit/gram topical 1 appl TOPICAL DAILY #4 g 11/28/20 cream olanzapine 10 mg disintegrating 20 mg TRANSLINGUAL BID #120 tab 11/28/20 tablet olanzapine 10 mg intramuscular 20 mg IM BID PRN #14 ea 11/28/20 solution omeprazole 20 mg capsule,delayed 20 mg PO DAILY@0630 #30 cap 11/28/20 release trazodone 50 mg tablet 50 mg PO BEDTIME PRN #30 tab 11/28/20 white petrolatum-mineral oil 1 appl TOPICAL BID #4 g 11/28/20 topical cream (Dermacerin) <Guillaume Black MD - Last Filed: 04/14/21 13:18> Allergies/adverse reactions: Allergies Allergy/AdvReac Type Severity Reaction Status Date / Time No Known Allergies Allergy Verified 07/21/20 16:39 <Guillaume Black MD - Last Filed: 04/14/21 13:18> Review of Systems Constitutional: Comments: No fever chills or weakness <Guillaume Black MD - Last Filed: 04/14/21 13:18> ENT: Comments: Sore throat. No difficulty swallowing or breathing <Guillaume Black MD - Last Filed: 04/14/21 13:18> Cardiovascular: Comments: No chest pain <Guillaume Black MD - Last Filed: 04/14/21 13:18> Respiratory: Comments: Positive cough <Guillaume Black MD - Last Filed: 04/14/21 13:18> Gastrointestinal: Comments: Nausea vomiting. No abdominal pain. <Guillaume Black MD - Last Filed: 04/14/21 13:18> Integumentary/Breasts: Comments: No rash <Guillaume Black MD - Last Filed: 04/14/21 13:18> Neurologic: Comments: No weakness <Guillaume Black MD - Last Filed: 04/14/21 13:18> Psychiatric: Comments: Denies voices and SI and HI <Guillaume Black MD - Last Filed: 04/14/21 13:18> [facility] Past Medical History Medical History: Medical History (Updated 04/15/21 @ 09:20 by AUBREE Cardenas) Anemia Diabetes Heart failure HTN (hypertension) Hyperlipidemia Morbid obesity Peripheral vascular disease Pneumonia Schizophrenia <Guillaume Black MD - Last Filed: 04/14/21 13:18> Social History Social History: Social History Household Members: Other 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 Alcohol intake: unknown Patient Tobacco Use Status: Never used Tobacco Second Hand Smoke Exposure: No Advance Directives: Yes Advance Directives on File: Yes Advance Directives Date on File: 12/05/20 Healthcare Proxy: Yes Guardian: No (Brother is in the process of pursuing guardianship) service: No Sexual orientation: Straight/Heterosexual <Guillaume Black MD - Last Filed: 04/14/21 13:18> Physical Exam Vital Signs: Vital Signs: Last Vital Signs Temp 97.6 F 04/14/21 23:28 Pulse 76 04/14/21 23:28 Resp 20 04/14/21 23:28 BP 119/64 04/14/21 23:28 Pulse Ox 98 04/14/21 23:28 BMI result Body Mass Index 52.3 <Guillaume Black MD - Last Filed: 04/14/21 13:18> Vital Signs: Last Vital Signs Temp 97.6 F 04/14/21 23:28 Pulse 76 04/14/21 23:28 Resp 20 04/14/21 23:28 BP 119/64 04/14/21 23:28 Pulse Ox 98 04/14/21 23:28 BMI result Body Mass Index 52.3 <AUBREE Cardenas - Last Filed: 04/15/21 09:20> Const: Other: Awake and alert, in no acute distress. Ambulating without difficulty <Guillaume Black MD - Last Filed: 04/14/21 13:18> HENMT: Other: Normocephalic atraumatic. Oropharynx within normal limits without significant erythema, exudate, or swelling <Guillaume Black MD - Last Filed: 04/14/21 13:18> Neck: Other: No meningismus <Guillaume Black MD - Last Filed: 04/14/21 13:18> Resp: Other: Clear and equal bilaterally without wheezes rales or rhonchi <Guillaume Black MD - Last Filed: 04/14/21 13:18> Cardio: Other: Regular rate and rhythm without murmurs rubs or gallops <Guillaume Black MD - Last Filed: 04/14/21 13:18> GI: Other: Soft nontender nondistended. Normoactive bowel sounds. <Guillaume Black MD - Last Filed: 04/14/21 13:18> Skin: Other: Warm pink and dry without rash <Guillaume Black MD - Last Filed: 04/14/21 13:18> Neuro: Other: No focal neuro deficit. Ambulates without difficulty <Guillaume Black MD - Last Filed: 04/14/21 13:18> Psych: Other: Denies voices, HI, SI. Does not appear to be responding to internal stimuli <Guillaume Black MD - Last Filed: 04/14/21 13:18> Course Course Course Narrative: Sore throat Pharyngitis COVID-19 infection Strep throat Anorexia Exacerbation of chronic schizophrenia Vomiting Dehydration Hepatitis Pancreatitis Zofran He will challenge Labs including COVID antigen test and group a strep test <Guillaume Black MD - Last Filed: 04/14/21 13:18> Reevaluation(s) Reevaluation #1: Patient medically cleared last night. Physician observation started last night at 21:00. There were no acute overnight events. Patient is calm and cooperative, he took all of his medications this morning. Seen by the care team with hopeful placement back to his ch[facility] later today. Will continue to monitor. <AUBREE Cardenas - Last Filed: 04/15/21 09:20> Medical Decision Making Lab Data Result diagrams: : 04/14/21 14:05 04/14/21 14:05 <Guillaume Black MD - Last Filed: 04/14/21 13:18> Labs: Lab Results 04/14/21 04/14/21 04/14/21 Range/Units 14:05 14:05 14:05 WBC 10.7 (4.8-10.8) X10*3/uL RBC 5.11 (4.60-5.80) X10*6/uL Hgb 13.0 L (14.0-18.0) g/dl Hct 39.4 L (42.0-52.0) % MCV 77.1 L (80.0-98.0) fL MCH 25.4 L (27.0-33.0) pg MCHC 33.0 (31.0-36.0) g/dl RDW 15.5 (11.0-16.0) % Plt Count 287 (160-400) X10*3/uL MPV 9.5 (9.4-12.4) fL Immature Gran % (Auto) 0.5 H (0.0-0.4) % Neut % (Auto) 72.3 (45-73) % Lymph % (Auto) 17.3 L (20-40) % [place] % (Auto) 7.5 (2-11) % Eos % (Auto) 2.0 (0-4) % Baso % (Auto) 0.4 (0-2) % Lymph # (Auto) 1.9 (1.2-4.9) X10*3/uL [place] # (Auto) 0.8 (0.1-1.2) X10*3/uL Eos # (Auto) 0.2 (0.0-0.4) X10*3/uL Baso # (Auto) 0.0 (0.0-0.2) X10*3/uL Abs Immat Gran (auto) 0.05 H (0.00-0.03) X10*3/uL Absolute Neuts (auto) 7.8 (2.0-8.3) x10*3/uL Absolute Nucleated RBC 0.000 (0.0-0.012) X10*3/uL Nucleated RBC % (auto) 0.0 (0.0-0.2) /100WBC Sodium 134 L (135-145) mmol/L Potassium 3.6 (3.3-5.1) mmol/L Chloride 101 (96-108) mmol/L Carbon Dioxide 25 (22-29) mmol/L Anion Gap 12 (12-20) BUN 10 (9-16) mg/dL Creatinine 0.81 (0.5-1.4) mg/dL Estim Creat Clear Calc 149.8 Estimated GFR > 60 Random Glucose 129 H (60-115) mg/dL Calcium 9.2 (8.4-10.2) mg/dL Total Bilirubin 1.3 H (0.0-1.0) mg/dL AST 11 (5-37) U/L ALT 13 (0-40) U/L Alkaline Phosphatase 88 D (39-117) U/L Total Protein 6.6 (6.5-8.0) g/dL Albumin 3.6 (3.5-5.0) g/dL Lipase (8-78) U/L Ethyl Alcohol < 10 mg/dL COVID-19 (DEONTE) (Negative) COVID-19 Clin Com S. pyogenes GrpA DARIUS (Negative) 04/14/21 04/14/21 04/14/21 Range/Units 14:05 14:05 15:45 WBC (4.8-10.8) X10*3/uL RBC (4.60-5.80) X10*6/uL Hgb (14.0-18.0) g/dl Hct (42.0-52.0) % MCV (80.0-98.0) fL MCH (27.0-33.0) pg MCHC (31.0-36.0) g/dl RDW (11.0-16.0) % Plt Count (160-400) X10*3/uL MPV (9.4-12.4) fL Immature Gran % (Auto) (0.0-0.4) % Neut % (Auto) (45-73) % Lymph % (Auto) (20-40) % [place] % (Auto) (2-11) % Eos % (Auto) (0-4) % Baso % (Auto) (0-2) % Lymph # (Auto) (1.2-4.9) X10*3/uL [place] # (Auto) (0.1-1.2) X10*3/uL Eos # (Auto) (0.0-0.4) X10*3/uL Baso # (Auto) (0.0-0.2) X10*3/uL Abs Immat Gran (auto) (0.00-0.03) X10*3/uL Absolute Neuts (auto) (2.0-8.3) x10*3/uL Absolute Nucleated RBC (0.0-0.012) X10*3/uL Nucleated RBC % (auto) (0.0-0.2) /100WBC Sodium (135-145) mmol/L Potassium (3.3-5.1) mmol/L Chloride (96-108) mmol/L Carbon Dioxide (22-29) mmol/L Anion Gap (12-20) BUN (9-16) mg/dL Creatinine (0.5-1.4) mg/dL Estim Creat Clear Calc Estimated GFR Random Glucose (60-115) mg/dL Calcium (8.4-10.2) mg/dL Total Bilirubin (0.0-1.0) mg/dL AST (5-37) U/L ALT (0-40) U/L Alkaline Phosphatase (39-117) U/L Total Protein (6.5-8.0) g/dL Albumin (3.5-5.0) g/dL Lipase 9 (8-78) U/L Ethyl Alcohol mg/dL COVID-19 (DEONTE) Negative (Negative) COVID-19 Clin Com See Note S. pyogenes GrpA DARIUS Negative (Negative) <Guillaume Black MD - Last Filed: 04/14/21 13:18> Lab Results 04/14/21 04/14/21 04/14/21 Range/Units 14:05 14:05 14:05 WBC 10.7 (4.8-10.8) X10*3/uL RBC 5.11 (4.60-5.80) X10*6/uL Hgb 13.0 L (14.0-18.0) g/dl Hct 39.4 L (42.0-52.0) % MCV 77.1 L (80.0-98.0) fL MCH 25.4 L (27.0-33.0) pg MCHC 33.0 (31.0-36.0) g/dl RDW 15.5 (11.0-16.0) % Plt Count 287 (160-400) X10*3/uL MPV 9.5 (9.4-12.4) fL Immature Gran % (Auto) 0.5 H (0.0-0.4) % Neut % (Auto) 72.3 (45-73) % Lymph % (Auto) 17.3 L (20-40) % [place] % (Auto) 7.5 (2-11) % Eos % (Auto) 2.0 (0-4) % Baso % (Auto) 0.4 (0-2) % Lymph # (Auto) 1.9 (1.2-4.9) X10*3/uL [place] # (Auto) 0.8 (0.1-1.2) X10*3/uL Eos # (Auto) 0.2 (0.0-0.4) X10*3/uL Baso # (Auto) 0.0 (0.0-0.2) X10*3/uL Abs Immat Gran (auto) 0.05 H (0.00-0.03) X10*3/uL Absolute Neuts (auto) 7.8 (2.0-8.3) x10*3/uL Absolute Nucleated RBC 0.000 (0.0-0.012) X10*3/uL Nucleated RBC % (auto) 0.0 (0.0-0.2) /100WBC Sodium 134 L (135-145) mmol/L Potassium 3.6 (3.3-5.1) mmol/L Chloride 101 (96-108) mmol/L Carbon Dioxide 25 (22-29) mmol/L Anion Gap 12 (12-20) BUN 10 (9-16) mg/dL Creatinine 0.81 (0.5-1.4) mg/dL Estim Creat Clear Calc 149.8 Estimated GFR > 60 Random Glucose 129 H (60-115) mg/dL Calcium 9.2 (8.4-10.2) mg/dL Total Bilirubin 1.3 H (0.0-1.0) mg/dL AST 11 (5-37) U/L ALT 13 (0-40) U/L Alkaline Phosphatase 88 D (39-117) U/L Total Protein 6.6 (6.5-8.0) g/dL Albumin 3.6 (3.5-5.0) g/dL Lipase (8-78) U/L Ethyl Alcohol < 10 mg/dL COVID-19 (DEONTE) (Negative) COVID-19 Clin Com S. pyogenes GrpA DARIUS (Negative) 04/14/21 04/14/21 04/14/21 Range/Units 14:05 14:05 15:45 WBC (4.8-10.8) X10*3/uL RBC (4.60-5.80) X10*6/uL Hgb (14.0-18.0) g/dl Hct (42.0-52.0) % MCV (80.0-98.0) fL MCH (27.0-33.0) pg MCHC (31.0-36.0) g/dl RDW (11.0-16.0) % Plt Count (160-400) X10*3/uL MPV (9.4-12.4) fL Immature Gran % (Auto) (0.0-0.4) % Neut % (Auto) (45-73) % Lymph % (Auto) (20-40) % [place] % (Auto) (2-11) % Eos % (Auto) (0-4) % Baso % (Auto) (0-2) % Lymph # (Auto) (1.2-4.9) X10*3/uL [place] # (Auto) (0.1-1.2) X10*3/uL Eos # (Auto) (0.0-0.4) X10*3/uL Baso # (Auto) (0.0-0.2) X10*3/uL Abs Immat Gran (auto) (0.00-0.03) X10*3/uL Absolute Neuts (auto) (2.0-8.3) x10*3/uL Absolute Nucleated RBC (0.0-0.012) X10*3/uL Nucleated RBC % (auto) (0.0-0.2) /100WBC Sodium (135-145) mmol/L Potassium (3.3-5.1) mmol/L Chloride (96-108) mmol/L Carbon Dioxide (22-29) mmol/L Anion Gap (12-20) BUN (9-16) mg/dL Creatinine (0.5-1.4) mg/dL Estim Creat Clear Calc Estimated GFR Random Glucose (60-115) mg/dL Calcium (8.4-10.2) mg/dL Total Bilirubin (0.0-1.0) mg/dL AST (5-37) U/L ALT (0-40) U/L Alkaline Phosphatase (39-117) U/L Total Protein (6.5-8.0) g/dL Albumin (3.5-5.0) g/dL Lipase 9 (8-78) U/L Ethyl Alcohol mg/dL COVID-19 (DEONTE) Negative (Negative) COVID-19 Clin Com See Note S. pyogenes GrpA DARIUS Negative (Negative) <AUBREE Cardenas - Last Filed: 04/15/21 09:20> Discharge Plan Discharge Clinical Impression: Chronic schizophrenia <Guillaume Black MD - Last Filed: 04/14/21 13:18> Prescriptions: No Action acetaminophen 325 mg Tablet 650 mg PO Q6H PRN (Reason: Headache/Pain Mild Scale (1-3)) Qty: 60 0RF metoprolol succinate 50 mg Tablet Extended Release 24 Hr 50 mg PO DAILY Qty: 30 0RF Protocol: Hold for SBP/HR < HOLD for SBP < : 90 HOLD for HR < : 60 benztropine 1 mg Tablet 1 mg PO BID Qty: 60 0RF olanzapine 10 mg Tablet,Disintegrating 20 mg translingual BID Qty: 120 0RF olanzapine 10 mg Recon Soln 20 mg IM BID PRN (Reason: if pt ref po zydis per [facility]) Qty: 14 4RF Rx Instructions: Injection is to be given ONLY if patient refuses PO Zydis per [facility] order. ferrous sulfate 324 mg (65 mg iron) Tablet,Delayed Release (Dr/Ec) 324 mg PO DAILY Qty: 30 0RF trazodone 50 mg Tablet 50 mg PO BEDTIME PRN (Reason: Insomnia) Qty: 30 0RF nystatin 100,000 unit/gram Cream 1 appl topical DAILY Qty: 4 0RF Protocol: Apply to: Apply to: inner thighs and belly fold omeprazole 20 mg Capsule,Delayed Release(Dr/Ec) 20 mg PO DAILY@0630 Qty: 30 0RF multivitamin with minerals Tablet 1 tab PO DAILY Qty: 30 0RF Dermacerin Cream 1 appl topical BID Qty: 4 0RF atorvastatin 80 mg Tablet 80 mg PO BEDTIME Qty: 30 0RF finasteride 5 mg Tablet 5 mg PO DAILY Qty: 30 0RF cholecalciferol (vitamin D3) 50 mcg (2,000 unit) Tablet 2,000 unit PO BEDTIME Qty: 30 0RF clozapine 25 mg tablet 25 mg PO DAILY 0RF <Guillaume Black MD - Last Filed: 04/14/21 13:18>
[2021-04-14 13:21] VITALS: BP 133/67; BP 150/87; PULSE 84; PULSE 90; RESP 16; TEMP 36.2; O2SAT 96; O2SAT 98; BMI 52.3
[2021-04-14 14:11] LABS: MANUAL DIFF FLAG NO
[2021-04-14 14:13] LABS: Basophils Percent Auto 0.4 % (0-2); Eosinophils Absolute Auto 0.2 X10*3/uL (0.0-0.4); Hematocrit 39.4 % (42.0-52.0); Imm Gran Abs Auto 0.05 X10*3/uL (0.00-0.03); Imm Gran Pct Auto 0.5 % (0.0-0.4); Lymphocytes Absolute Auto 1.9 X10*3/uL (1.2-4.9); Lymphocytes Percent Auto 17.3 % (20-40); Mean Corpuscular Hemoglobin 25.4 pg (27.0-33.0); Mean Corpuscular Volume 77.1 fL (80.0-98.0); Mean Platelet Volume 9.5 fL (9.4-12.4); Monocytes Absolute Auto 0.8 X10*3/uL (0.1-1.2); Monocytes Percent Auto 7.5 % (2-11); Neutrophils Absolute Auto 7.8 x10*3/uL (2.0-8.3); Neutrophils Percent Auto 72.3 % (45-73); Platelet Count 287 X10*3/uL (160-400); Red Blood Count 5.11 X10*6/uL (4.60-5.80); Red Cell Distribution Width 15.5 % (11.0-16.0); White Blood Count 10.7 X10*3/uL (4.8-10.8)
[2021-04-14] MEDS: Ondansetron ODT 4 MG TAB.RAPDIS TRANSLINGU (14:24)
[2021-04-14 14:27] LABS: Ethanol < 10 mg/dL
[2021-04-14 14:31] LABS: Alanine Aminotransferase 13 U/L (0-40); Albumin Level 3.6 g/dL (3.5-5.0); Alkaline Phosphatase 88 U/L (39-117); Anion Gap 12 (12-20); Aspartate Amino Transferase 11 U/L (5-37); Bilirubin Total 1.3 mg/dL (0.0-1.0); Blood Urea Nitrogen 10 mg/dL (9-16); Calcium 9.2 mg/dL (8.4-10.2); Carbon Dioxide 25 mmol/L (22-29); Chloride 101 mmol/L (96-108); Creatinine Clr Calc Pharmacy 149.8; Estimated Glomerular Filt Rate > 60; Glucose Random 129 mg/dL (60-115); Potassium 3.6 mmol/L (3.3-5.1); Sodium 134 mmol/L (135-145); Total Protein 6.6 g/dL (6.5-8.0)
[2021-04-14 14:32] LABS: Lipase 9 U/L (8-78)
[2021-04-14 14:34] LABS: COVID-19 Test Negative (Negative)
[2021-04-14 16:04] LABS: Strep A Nucleic Acid Negative (Negative)
[2021-04-14 17:33] VITALS: BP 142/77; PULSE 73; RESP 16; TEMP 37.1; O2SAT 97
--- NOTE | 2021-04-14 19:48 | MHC.CARE ---
CARE team met with pt. Pt reports he is homeless and has been drinking and smoking crack for the last 8 days. Pt states that he is interested in detox, specifically [facility] because he has complex medical issues and only facility that would accept him. Pt reports that he has a TBI and has went to [facility] previously. Pt states that he is concerned that he may go into withdrawals and reports that he feels that he is starting to. Pt was informed that if bed placement is not secured by tomorrow he can no longer stay here. Pt agrees to this and Dr. Ramon also agrees. CARE team called [facility] they have no beds today, will likely have one tomorrow and pt is on the waitling list.
[2021-04-14] MEDS: Atorvastatin Calcium 80 MG TABLET PO (20:22)
[2021-04-14] MEDS: OLANZapine ODT 10 MG TAB.RAPDIS 20 MG TRANSLINGU (20:22)
[2021-04-14] MEDS: Benztropine Mesylate 1 MG TABLET PO (20:22)
[2021-04-14 23:28] VITALS: BP 119/64; PULSE 76; RESP 20; TEMP 36.4; O2SAT 98
[2021-04-15] MEDS: Omeprazole 20 MG CAPSULE.DR PO (06:30)
--- NOTE | 2021-04-15 06:34 | PC.NURSE ---
Patient slept through the night, no distress observed/reported, urine pending, medication compliant, behavior appropriate and non concerning at this time, patient was assessed by care team with no disposition established yet, patient will be reevaluated by care team in the morning, possible d/c to home, VSS, will continue to monitor.
--- NOTE | 2021-04-15 07:14 | PC.NURSE ---
patient appears to remain asleep at present respirations are even and unlabored patient appears in no distress.
[2021-04-15] MEDS: cloZAPine 25 MG TABLET PO (08:36)
[2021-04-15] MEDS: Finasteride 5 MG TABLET PO (08:36)
[2021-04-15] MEDS: OLANZapine ODT 10 MG TAB.RAPDIS 20 MG TRANSLINGU (08:36)
[2021-04-15] MEDS: Metoprolol Succinate ER 50 MG TAB.ER.24H PO (08:36)
[2021-04-15 16:00] VITALS: BP 144/85; PULSE 90; TEMP 36.8; O2SAT 95
--- NOTE | 2021-04-15 18:36 | MHC.SL.SWA ---
Speech Pathologist Impression: Risk of Aspiration Risk of Aspiration Due to: Weak Voice Dysphasia Diet Status: No Change Liquid Consistency and Strategies for Safe Swallow: Liquid Intake Recommendation: Thin Liquid Intake Strategies: Small Sips No Straws Solid Food Consistency: Dietary Recommendations: Regular Additional Modifications to Solid Foods: Patient presents with moderate dysphonia, characterized by weak, breathy, hoarse vocal quality. Patient displayed no overt s/s of aspiration with PO trials at bedside. Recommend REGULAR solids/THIN liquids, pills WHOLE in LIQUID- Given risk factor weak voice and patient's complaints of dysphagia, recommend aspiration precautions, total supervision during meals, and CORPORATE INVESTIGATOR f/u. Oral Medication Intake: Whole with Liquid Compensatory Strategies and Precautions to be Taken for Safe Swallow: Sitting Upright (90 deg) No Straw Small Bites and Sips Alternate Liquids/Solids Rate of Ingestion Change Supervision While Eating and Drinking for Safe Swallow: Total Supervision (1:1) Foods to Avoid: Swallowing Recommended Treatments: Compens. Strategy Educat. Recommendation for Speech: Outpatient Speech Therapy Inpatient Speech Therapy Comment: Recommend continue ST intervention for dysphagia and voice. Frequency/Duration: Date Range for Service Req: Timeline to reassess: Ramp Supervisor Clinican/Clinical Fellow: No Supervisory Statement: I have reviewed and agree with the student/clinical fellow's documentation: N/A Speech Language Pathologist: Aliza Mujica M.A., CCC-CORPORATE INVESTIGATOR
--- NOTE | 2021-04-15 18:59 | MHC.CARE ---
CARE Team continues to assess pt throughout the day, speaking with [facility] staff, brother, pt and Sissy Robels NP. Pt appears to be in the early stages of decompensation due to medication noncompliance, however, he has been taking his medications in the ED without issue. Yesterday, brother/guardian reported that he would like to have Zyprexa IM added to pt's fernandez order. Fernandez order was reviewed, and discussed with Elza Prince from detention and pt does have zyperxa IM on fernandez order. Per Suresh and Shahid from [facility], pt has not been given any IM meds on his fernandez, despite not being compliant with his PO meds. Pt has also been eating minimally and has complained about GI discomfort. [facility] advocated for further medical workup which was communicated to AUBREE Stewart. Per ED providers, pt is medically cleared but was prescribed a laxative. Pt does not meet criteria for IPLOC. He is calm and cooperative throughout the day in the Pod. He agrees to continue taking PO meds and agrees with plan to return to his detention. CARE Team recommended to [facility] staff and pt's brother that a plan be made with outpatient providers regarding the fernandez order. Plan is for pt to be picked up by his detention. Brother is aware of the plan for discharge and is understanding, though voices frustration about the fernandez order and feels pt needs IM meds consistently in order to maintain stability. Dispo was discussed with and approved by Sissy Robles NP and AUBREE Wakefield.
== END 2021-04-15 19:41 | disposition home or self-care (01) ==
PROVIDERS: Emergency Provider Emergency Medicine; PCP Internal Medicine
DX: F20.9 Schizophrenia, unspecified (principal); J02.8 Acute pharyngitis due to other specified organisms; Z20.822 Contact with and (suspected) exposure to COVID-19; Z79.899 Other long term (current) drug therapy
CPT/HCPCS: 36415; 74176; 80053; 82077; 83690; 85025; 87635; 87651; 99284; 99285